=== PATIENT | female | born 1945 | race Caucasian/White ===

== ENCOUNTER → 2018-03-29 06:58 | Outpatient (CLI) | payer MEDICARE, SELFPAY | PROVIDERS: Family Provider Internal Medicine; PCP Internal Medicine; Visit Provider Surgery | DX: R69 Illness, unspecified (principal); Z53.9 Procedure and treatment not carried out, unspecified reason ==

== ENCOUNTER 2018-06-13 09:42 | Inpatient (IN) | payer MEDICARE, SELFPAY ==
--- NOTE | 2018-06-07 15:49 | EKG12_ITS ---
Test Reason : PREOP Blood Pressure : / mmHG Vent. Rate : 084 BPM Atrial Rate : 084 BPM P-R Int : 160 ms QRS Dur : 068 ms QT Int : 366 ms P-R-T Axes : 046 -04 093 degrees QTc Int : 432 ms Normal sinus rhythm Nonspecific ST and T wave abnormality Abnormal ECG Confirmed by THOMAS TOLEDO, NIRANJAN ([id number]), television news video editor SHERINE BAHENA ([id number]) on 06/08/2018 1:36:12 PM Referred By: Howie Bach Confirmed By:NIRANJAN GUZMAN MD
[2018-06-07 16:11] LABS: Hematocrit 42.2 % (37-47); Hemoglobin 13.4 g/dl (12.0-15.0); Mean Corp Hgb Conc 31.8 g/gl (32-36); Mean Corpuscular Hgb 28.4 pg (27.0-32.0); Mean Corpuscular Volume 89.4 fL (81-99); Platelet Count 196 K/mm3 (150-450); RBC Distribution Width CV 15.5 % (11.6-14.6); RBC Distribution Width SD 50.7 fl (35.1-43.9); Red Blood Count 4.72 M/mm3 (4.2-5.4); White Blood Count 6.4 K/mm3 (4.4-11.0)
[2018-06-07 16:15] LABS: Scan Indicated on CBC? Y/N NO
[2018-06-07 16:29] LABS: Anion Gap 10 (5-15); BUN 14 mg/dL (7-18); BUN/Creat Ratio 14.2 RATIO (10-20); Chloride 105 mmol/L (98-107); Creatinine, Serum 0.98 mg/dL (0.55-1.02); EST Glomerular Filtration Rate 59 mL/min (>60); Est Glom Filt Rate - Afr Amer 72 mL/min (>60); Glucose 152 mg/dL (74-106); Sodium Level 137 mmol/L (136-145)
[2018-06-13] VITALS (15 sets, daily range): BP systolic 81–145; BP diastolic 50–81; PULSE 69–96; RESP 16–116; TEMP 36.1–37.2; O2SAT 92–100; BMI 36.6
--- NOTE | 2018-06-13 | IMM_PTH ---
PATIENT: FARIDA JHAVERI LOC: MS3 U#:[id number] AGE/SX: 72/F ROOM: MS305 RE06/13/[address]: Dr. Howie Bach MD : 1945 BED: 1 DIS: 06/15/2018 SPEC #: [id number] RECD: 06/15/18 14:31 STATUS: KIRSTY REQ #: [id number] ANA MARIA: 06/13/18 00:[address]: Howie Bach DEPT: IMMUNOHISTOCHEMISTRY RECD BY: Martha Weiss ENTERED: 06/15/18 14:33 SP TYPE: IMMUNO OTHR DR: Dr. Edda Ruano MD Tissues: Spleen, NOS Procedures: CD138 (add) CD45 (add) CD5 (add) CD79A (add) MACRO (add) Vimentin (add) Pankeratin (add) S-100 (add) CD3 (initial) PHYSICIAN & INSTITUTION [address] [address] SPECIMEN INFORMATION: Tissue Source: Spleen Clinical Info: Spleen anomaly Specimen Number: [id number] #4 CPT code: 38316, 62331 x8 METHODOLOGY: Deparaffinized sections of prefer/formalin-fixed tissue or PAP/DQ stained slides are incubated with monoclonal/polyclonal antibodies/oligonucleotide probes. Localization is made via biotin free immunoperoxidase method. Appropriate controls are performed and reacted as expected. Results on target cell population are indicated in the following table: RESULTS: ANTIBODY / CLONE RESULT Block 4 CD3 (PS1) negative CD5 (SP10) negative CD45 (RP2/18) negative CD79a (11E3) negative CD138 (B-A38) negative Macro (HAM-56) positive, focal Vimentin (V9) negative AE1-3 (AE1/AE3/PCK26) negative S-100 (4C4.9) negative These tests were developed and their performance characteristics determined by [facility]. They may not have been cleared or approved by the U.S. Food and Drug Administration. The FDA has determined that such clearance or approval is not necessary. INTERPRETATION: Spleen, splenectomy: No evidence of lymphoproliferative disorder. AM:javier 06/17/18
--- NOTE | 2018-06-13 | SPL_PTH ---
PATIENT: FARIDA JHAVERI LOC: MS3 U#:[id number] AGE/SX: 72/F ROOM: [facility] RE06/13/[address]: Dr. Howie Bach MD : 1945 BED: 1 DIS: 06/15/2018 SPEC #: [id number] RECD: 06/13/18 14:24 STATUS: KIRSTY REBlayne #: [id number] ANA MARIA: 06/13/18 00:[address]: Howie Bach DEPT: SURGICAL PATHOLOGY RECD BY: Gordy Palma ENTERED: 06/13/18 14:25 SP TYPE: SPLEEN OTHR DR: MD Dr. Pablo Martinez DO Tissues: Spleen, NOS Procedures: Surgery Specimen Level IV HEADER OPERATION: Laparoscopic splenectomy PRE-OP DIAGNOSIS: Spleen anomaly TISSUE SUBMITTED: Spleen MICROSCOPIC DIAGNOSIS Spleen, splenectomy: Non-necrotizing granulomatous inflammation. No evidence of malignancy. Negative for acid-fast bacilli and fungal organisms. AM:rg 9/19/18 COMMENT Immunohistochemistry ([id number]) supports the above diagnosis. AFB and GMS stains with matched controls were used in the evaluation of this case and are negative for microorganisms. The differential diagnosis includes sarcoidosis. Clinical correlation is necessary. Case has been reviewed in consultation with Dr. Morales who concurs with the above diagnosis. IDC:SHIV MICROSCOPIC DESCRIPTION Slides are reviewed. GROSS DESCRIPTION Received in fixative is one container labeled with the patient's name and designated spleen. The specimen consists of a splenectomy specimen in multiple pieces weighing 431 gm and measuring in aggregate 15 x 14 x 4 cm. The capsule shows multiple areas of disruption. Sections reveal multiple bowser-white nodules. The largest nodule measures 1.5 cm in greatest dimension. These nodules are present throughout the entire specimen. A definite hilar area is not identified due to the disrupted nature of the specimen. Logistics Specialist sections are submitted in eight cassettes. Cassettes 7 & 8 contain the possible hilar region of the specimen. Sections will be submitted after additional fixation. / SHIV:javier 06/13/18 TC:3 CPT: 41179, 74461 x2
--- NOTE | 2018-06-13 06:18 | PCM.CONS.B ---
Problem List (1) Spleen anomaly Status: Acute - Consult Date of Consult: 06/13/18 Intake Vital Signs 06/13/18 Height 5 ft 1.5 in 06/13/18 Weight: 197 lb 06/13/18 Body Mass Index (BMI) 37.0 06/13/18 Blood Pressure 145/81 06/13/18 Respiratory Rate 16 06/13/18 Pulse Rate 78 06/13/18 Pulse Source Monitor 06/13/18 Temperature 97.8 F 06/13/18 Temperature Source Temporal 06/13/18 Pulse Ox 97 06/13/18 Oxygen Delivery Method room air Intake Visit Reasons: Splenectomy Consult [employer] Machine Operator Required: No Is patient in pain?: No Allergies lidocaine Allergy (Intermediate, Verified 05/11/18 13:43) tachycardia Penicillins Allergy (Verified 02/22/18 15:58) Hives hydrocodone bitartrate [From Vicodin] Adverse Reaction (Verified 02/22/18 15:58) Vomiting oxycodone HCl [From Percocet] Adverse Reaction (Verified 02/22/18 15:58) Vomiting Medications Atorvastatin Calcium [Lipitor] 40 mg PO QHS 04/03/16 [History Confirmed 05/11/18] Clorazepate [Tranxene] 7.5 mg PO TID PRN PRN 04/03/16 [History Confirmed 05/11/18] Paroxetine HCl 20 mg PO DAILY 04/03/16 [History Confirmed 05/11/18] Verapamil [Calan] 80 mg PO DAILY 04/03/16 [History Confirmed 05/11/18] Cephalexin [Keflex] 250 mg PO DAILY 02/22/18 [History Confirmed 05/11/18] naproxen sodium 220 mg capsule 220 mg PO Q6H cap 05/11/18 [History Confirmed 05/11/18] PFSH Medical History Spleen anomaly (Acute) BMI 36.0-36.9,adult (Chronic) Dyslipidemia (Chronic) Depression (Chronic) History of PSVT (paroxysmal supraventricular tachycardia) (Chronic) PNA (pneumonia) (Acute) Abdominal pain (Acute) Hemorrhoids (Acute) History of blood clots (Acute) Sleep apnea (Acute) Splenomegaly (Acute) Surgical History History of hysterectomy (Acute) history excisional biopsy left breasr (Acute) Family History Daughter Hypertension Social History Smoking Status: Never smoker HPI: Patient presents for an update history and physical for her elective splenectomy. Patient denies recent hospitalizations or illnesses. Patient notes history of SVT. She denies previous myocardial infarction, stroke. She notes previous hysterectomy otherwise no other abdominal surgeries. Patient notes she has had the appropriate pre-op vaccines ordered by Dr. Werner's office. Patient's previous history per Dr. Bach: FARIDA JHAVERI, is a 72 F who presents to the office today for surgical consultation regarding epigastric and left upper quadrant pain and abnormal spleen. The patient is referred by Dr. Pablo Werner and a written copy of my surgical consult recommendations will be returned to him. The patient was most recently seen April 25, 2018. Her history is notable for an aortic aneurysm with paroxysmal supraventricular tachycardia. Because of abdominal pain issues she had a CT scan of the chest abdomen and pelvis. This was obtained at the [facility] on March 10, 2018. There are pulmonary nodular densities which are new from a previous study of May 20, 2015 and August 21, 2008. Differential diagnosis included inflammatory or neoplastic process. In addition numerous splenic nodules have developed which are new since 2007. Consider sarcoidosis or metastatic disease or lymphoma. There is a stable ascending aortic aneurysm. Which measures 3.9 x 4.1 cm. Previously it measured 3.8 x 3.8 cm. The distal descending thoracic aorta measures 2.4 cm On April 04, 2018 she had an MRI of the spleen. The spleen measures 14.1 cm in length. Multiple hypo-dense lesions are identified throughout the spleen. On March 09 total white blood cell count was 6500. Hemoglobin 13. Platelet count 190,000. The patient was to have a screening colonoscopy but that has been placed on hold secondary to her new pulmonary and spleen findings. Her previous colonoscopy was 2005. More recent laboratory April 26, 2018 demonstrates white blood cell count of 7.15 and hemoglobin 14 and hematocrit of 44.5 and a platelet count of 229,000 with a normal differential. Her urinalysis was not remarkable. Her hemoglobin A1c is elevated at 6.7. BUN is 13 and creatinine 0.77 She denies bright red blood per rectum or melena She is admittedly very anxious about pursuing any type of surgical intervention ROS General: Yes fatigue; no weight change, appetite, colon cancer, breast cancer or weakness HEENT: No difficulty swallowing, eye injury, eye surgery, swollen glands or hoarseness Endocrine: No thyroid disease, diabetes mellitus, thyroid cancer, Hair loss, heat intolerance or cold intolerance Skin: No rash or changing moles Breast: No left breast lump, right breast lump, nipple discharge, breast pain, abnormal mammogram, abnormal US or breast enlargement Musculoskeletal: Yes arthritis; no back problems, rheumatoid arthritis, gout or joint pain Cardiovascular: No murmur, pacemaker, heart disease, atrial fibrillation, high blood pressure, heart attack, heart stent, palpitations, shortness of breat with exertion or chest pain Psychiatric: Yes depression and anxiety; no hearing voices Respiratory: No shortness of breath, Yes sleep apnea, No cough, No COPD, No asthma, No emphysema, No wheezing Gastrointestinal: Yes abdominal pain, No nausea or vomiting, No diarrhea, No constipation, No blood in stool, No acid reflux, Yes hemorrhoids, No ulcers, No gallbladder problem, No black,tarry stools Hematologic: No blood thinners, No blood disorders, No bleeding, No anemia, Yes blood clots Neurologic: No system reviewed and no additional complaints, except as docu, No as per HPI, No abnormal walking, No abnormal hearing, No abnormal movements, No abnormal speech, No behavioral changes, No burning sensations, No confusion, No seizure-like activity, No unsteadiness, No dizziness, No localized weakness, No frequent falls, No headache(s), No lack of coordination, No loss of vision, No memory loss, Yes numbness, No other visual disturbances, No radiating pain, No restless legs, No sensory deficit, No fainting, Yes tingling, No tremor(s), No weakness, No other Exam: Const General: cooperative, anxious Nutritional Appearance: obese Orientation: alert, awake, oriented x3 HENMT Head: normal to inspection Eyes General: appearance normal, both eyes and all related structures Neck Neck: normal visual inspection Chest Breast Palpation: No nipple discharge Resp Effort & Inspection: normal respiratory effort Auscultation: clear to auscultation bilaterally Cardio Rate: regular rate Rhythm: regular rhythm Heart Sounds: no murmurs GI Palpation: soft Auscultation: normal bowel sounds Other: Minimal tenderness to palpation in the epigastric area. No mass. No rebound. No guarding. Central obesity Musc Cervical Spine: normal cervical lordosis Skin General: no rashes or lesions noted Neuro Cranial Nerves: CN's II-XI intact bilaterally Extrem General: no clubbing, cyanosis or edema Psych Affect: normal affect Assessment & Plan Problems 1. 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 Bach will plan to perform a laparoscopic splenectomy with possible conversion to open. Procedure details, risks and benefits have been reviewed with the patient. Patient has had the opportunity to ask and have questions answered. Patient agrees with the following plan and desires to proceed. Code Visit Inpatient E&M: 14001 Subs Hosp L1 - NO CHARGE; Update H&P
--- NOTE | 2018-06-13 07:13 | DCINST_ITS ---
Discharge Diet: Light diet - advance as tolerated - if you have questions about your diet instructions, please talk to you doctor. Discharge Activity: May Not Drive - for 1 week or while taking narcotic pain medicine. May shower in (days): 1 Lifting Restrictions: 10 pounds Call your doctor if your incision/area has: Continuous Slow Oozing, Sudden Increased Bleeding, Increased Pain/ Swelling, Increased Redness, Foul Smelling Discharge Call your doctor if you observe: Fever of 101 or Higher Suture Line Care: Avoid Pulling/Pushing, Avoid Pinching/Bending Additional Dressing/Incision Instructions:: Change or remove dressing in 4 days. Leave steri-strips in place for 1 week. Allergies/Adverse Reactions: Allergies lidocaine Allergy (Intermediate, Verified 06/13/18 05:46) tachycardia Penicillins Allergy (Verified 06/13/18 05:46) Hives atorvastatin Adverse Reaction (Verified 06/13/18 05:46) Pain in joints hydrocodone bitartrate [From Vicodin] Adverse Reaction (Verified 06/13/18 05:46) Vomiting oxycodone HCl [From Percocet] Adverse Reaction (Verified 06/13/18 05:46) Vomiting Medications to take at Discharge Clorazepate [Tranxene] 7.5 mg PO TID PRN PRN 04/03/16 Paroxetine HCl 20 mg PO QHS 04/03/16 Verapamil [Calan] 80 mg PO QHS 04/03/16 Cephalexin [Keflex] 250 mg PO QHS 02/22/18 Melatonin 3 mg PO QHS 06/01/18 Naproxen Sodium [Aleve] 220 mg PO Q12H PRN PRN 06/01/18 Primary Care Physician: Edda Ruano MD [Primary Care Provider] - Test Results: Test results from this visit will be discussed in further detail at your follow- up appointment, if applicable. Please Follow Up With: Howie Bach MD - [phone] When: Call to make an appointment to be seen in about 10 days.
[2018-06-13] MEDS: Bupivacaine Mpf 0.5% 30 ML VIAL (07:47)
--- NOTE | 2018-06-13 09:47 | PCM.OPRPT ---
Problem List (1) Spleen anomaly Status: Acute Report of Operation Date of Procedure: 06/13/18 Pre-Operative Diagnosis: Multiple splenic nodules Post-Operative Diagnosis: Pathology pending Surgery/Procedure Performed:: Laparoscopic splenectomy Description of Surgical Findings:: Timeout and informed consent was obtained. 72-year-old female was taken out from placement supine the table initially she underwent general ventricular-based anesthesia. Beanbag was in place. She was placed in the right lateral decubitus position. Care was taken to place a shoulder roll and padding underneath the right arm padding underneath the left arm and arm torres padding on the down leg padding between the legs. The kidney rest was advanced. The bed was flexed. Patient was secured with straps below and above. The abdomen sterilely prepped and draped. She received 900 mg of clindamycin intravenously. Sterile drapes were applied. Ioban drape was used over the drapes in place. In the left subcostal area slightly more medially placed made a 5 mm incision and inserted a 500 Visiport trocar was able to gain direct access safely to the abdomen. The abdomen was initially inflated to 2 to pressure of 10 ventricular pressure but because of the patient's obesity that was not enough insufflation so we went to 15 dave of pressure. There were multiple adhesions of omentum to the left upper quadrant completely obliterating view to the spleen. I then had to place a 5 mm trocar more in the epigastric area again slightly laterally placed and another 5 mm trocar more inferiorly lower in the abdomen. I then used the Enseal device to lyse the copious number of omental adhesions to the left upper quadrant. Having achieved that I did gain access to visualization of the spleen. I placed a 15 mm trocar in the left mid subcostal region and a 5 mm trocar more laterally. The spleen surface appear to be normal. Appeared to have a diffuse vascular supply rather than abundant supply. I elevated the spleen a legal ligament secured that with the Enseal device I dissected posteriorly to incise the peritoneum all the way up to the apex of the spleen. I then scored the anterior surface of the peritoneum. Upon so doing this was able to identify the splenic artery. I carefully secured that with 2 Hem-o-juni clips proximally 1 distally. That was then transected. Most of the spleen became devascularized but not all of the spleen. I then used the Enseal device from the inferior slowly coming across the hilum of the spleen. This point I did have some venous backflow from the spleen which was cumbersome. I initially placed a 45 mm vascular height stapler and secured a portion of the pedicle of the spleen. The remaining pedicle was thicker than the 45 mm device was opened. I was able to further secure the short gastrics with the Enseal device and I was able to mobilize the posterior aspect of the spleen elevated on the remaining pedicle. I then placed a [place] with a blue load was able to transect the remainder of the pedicle of the spleen. Took great care to take immediately upon the spleen so as to not to interfere with the pancreas the pancreas tail on visualization. Hemostasis was nicely intact. There had been some blood loss during this total blood loss for the whole case 250 cc. The left upper quadrant was copiously irrigated carefully inspected. The hemoclips to secure the splenic artery. The hemostasis was completely intact. The tail of the pancreas could be identified and appear to be completely intact. The greater curvature the stomach at the site of the short gastrics was clean and intact. Was happy with the resection. Her graph A [email or web address] contained extraction system bag was utilized. The bag was a Scott reference number GTB [id number] cm diameter retrieval bag. Spleen was placed with this and was then exited. The retaining device did not allow for enough opening so I then put in a small wound protector as well to increase the visualization. The spleen could then be partially morcellated was grabbed with ring forceps and then portions were removed simply as would be allowed with the ring forceps. Several large sections were removed to allow for adequate pathology. The whole specimen was evacuated. The specimen was then immediately placed in formalin. The retaining cervical and small wound protector and larger bag were all removed. The flank wound with was then approximated with a deep layer of running 0 Vicryl. The internal oblique was then further proximally the running 0 Vicryl and the external oblique with a running 0 PDS. [place] that I had good overlapping closure. The wound was anesthetized with Nesacaine. This because the patient's lidocaine allergy. Hemostasis was nicely intact. The abdomen was reinsufflated the resection area was intact I did place a 15 round RITA drain to the left upper quadrant area exited through the left flank incision and secured there with interrupted 3-0 nylon. Wounds were now closed with interrupted running septic or 4 Monocryl. Steri-Strips Telfa OpSite dressings applied. Sponge and instrument and needle counts were reported the surgeon be correct. Blood loss 250 cc. Specimens spleen. Drains #15 RITA round. Blood loss 250 cc. Howie Bach M.D., F.A.C.S. Type of Anesthesia:: General Anesthesiologist: Reji Conner
--- NOTE | 2018-06-13 09:56 | OP.PCM_ITS ---
Problem List (1) Spleen anomaly Status: Acute Report of Operation Date of Procedure: 06/13/18 Pre-Operative Diagnosis: Multiple splenic nodules Post-Operative Diagnosis: Pathology pending Surgery/Procedure Performed:: Laparoscopic splenectomy Description of Surgical Findings:: Timeout and informed consent was obtained. 72-year-old female was taken out from placement supine the table initially she underwent general ventricular- based anesthesia. Beanbag was in place. She was placed in the right lateral decubitus position. Care was taken to place a shoulder roll and padding underneath the right arm padding underneath the left arm and arm torres padding on the down leg padding between the legs. The kidney rest was advanced. The bed was flexed. Patient was secured with straps below and above. The abdomen sterilely prepped and draped. She received 900 mg of clindamycin intravenously. Sterile drapes were applied. Ioban drape was used over the drapes in place. In the left subcostal area slightly more medially placed made a 5 mm incision and inserted a 500 Visiport trocar was able to gain direct access safely to the abdomen. The abdomen was initially inflated to 2 to pressure of 10 ventricular pressure but because of the patient's obesity that was not enough insufflation so we went to 15 dave of pressure. There were multiple adhesions of omentum to the left upper quadrant completely obliterating view to the spleen. I then had to place a 5 mm trocar more in the epigastric area again slightly laterally placed and another 5 mm trocar more inferiorly lower in the abdomen. I then used the Enseal device to lyse the copious number of omental adhesions to the left upper quadrant. Having achieved that I did gain access to visualization of the spleen. I placed a 15 mm trocar in the left mid subcostal region and a 5 mm trocar more laterally. The spleen surface appear to be normal. Appeared to have a diffuse vascular supply rather than abundant supply. I elevated the spleen a legal ligament secured that with the Enseal device I dissected posteriorly to incise the peritoneum all the way up to the apex of the spleen. I then scored the anterior surface of the peritoneum. Upon so doing this was able to identify the splenic artery. I carefully secured that with 2 Hem-o-juni clips proximally 1 distally. That was then transected. Most of the spleen became devascularized but not all of the spleen. I then used the Enseal device from the inferior slowly coming across the hilum of the spleen. This point I did have some venous backflow from the spleen which was cumbersome. I initially placed a 45 mm vascular height stapler and secured a portion of the pedicle of the spleen. The remaining pedicle was thicker than the 45 mm device was opened. I was able to further secure the short gastrics with the Enseal device and I was able to mobilize the posterior aspect of the spleen elevated on the remaining pedicle. I then placed a [place] with a blue load was able to transect the remainder of the pedicle of the spleen. Took great care to take immediately upon the spleen so as to not to interfere with the pancreas the pancreas tail on visualization. Hemostasis was nicely intact. There had been some blood loss during this total blood loss for the whole case 250 cc. The left upper quadrant was copiously irrigated carefully inspected. The hemoclips to secure the splenic artery. The hemostasis was completely intact. The tail of the pancreas could be identified and appear to be completely intact. The greater curvature the stomach at the site of the short gastrics was clean and intact. Was happy with the resection. Her graph A [employer] contained extraction system bag was utilized. The bag was a Scott reference number GTB 1414 cm diameter retrieval bag. Spleen was placed with this and was then exited. The retaining device did not allow for enough opening so I then put in a small wound protector as well to increase the visualization. The spleen could then be partially morcellated was grabbed with ring forceps and then portions were removed simply as would be allowed with the ring forceps. Several large sections were removed to allow for adequate pathology. The whole specimen was evacuated. The specimen was then immediately placed in formalin. The retaining cervical and small wound protector and larger bag were all removed. The flank wound with was then approximated with a deep layer of running 0 Vicryl. The internal oblique was then further proximally the running 0 Vicryl and the external oblique with a running 0 PDS. [place] that I had good overlapping closure. The wound was anesthetized with Nesacaine. This because the patient's lidocaine allergy. Hemostasis was nicely intact. The abdomen was reinsufflated the resection area was intact I did place a 15 round RITA drain to the left upper quadrant area exited through the left flank incision and secured there with interrupted 3-0 nylon. Wounds were now closed with interrupted running septic or 4 Monocryl. Steri- Strips Telfa OpSite dressings applied. Sponge and instrument and needle counts were reported the surgeon be correct. Blood loss 250 cc. Specimens spleen. Drains #15 RITA round. Blood loss 250 cc. Howie Bach M.D., F.A.C.S. Type of Anesthesia:: General Anesthesiologist: Reji Conner
[2018-06-13] MEDS: Lactated Ringers 1,000 ML 50 ML IV (11:48)
[2018-06-13 12:12] LABS: Hematocrit 37.5 % (37-47); Hemoglobin 11.5 g/dl (12.0-15.0)
--- NOTE | 2018-06-13 12:24 | PCM.PN.BLA ---
Progress Note We will utilize early mobilization and sequential venous compression devices as means of DVT prophylaxis. 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 Howie Bach M.D., F.A.C.S.
[2018-06-13] MEDS: Lactated Ringers 500 ML 999 ML IV (12:35)
--- NOTE | 2018-06-13 12:54 | SUR.PHASEI ---
500 ML LR COMPLETE HR 82, RESP 16 PULSE OX 99% ON 2L ND NC BP 117/68 REPEAT H/H @1600 ON MED SURG 3. MARIA LUISA MANRIQUEZ INFORMED.
[2018-06-13] MEDS: Ketorolac 15 MG/ML Vial IV ×2 (13:21→21:30)
[2018-06-13] MEDS: Morphine 2 MG/ML Syringe IV ×2 (16:38→19:49)
[2018-06-13] MEDS: Acetaminophen 325 MG Tablet 650 MG PO (16:39)
[2018-06-13 16:47] LABS: Hematocrit 36.3 % (37-47); Hemoglobin 11.8 g/dl (12.0-15.0)
--- NOTE | 2018-06-13 19:04 | PCM.PN.BLA ---
Progress Note Pt feels like she is doing well Urinary retention Will treat with flomax RITA no remarkable Mobilize pt
[2018-06-13] MEDS: Lactated Ringers 1,000 ML 30 ML IV (19:49)
[2018-06-13] MEDS: Tamsulosin HCl 0.4 MG Capsule PO (19:49)
[2018-06-13] MEDS: Cephalexin 250 MG Capsule PO (21:30)
[2018-06-14 02:00] VITALS: BP 129/64; PULSE 99; RESP 18; TEMP 37.1; O2SAT 96
--- NOTE | 2018-06-14 02:00 | NURSING ---
Patient ambulated in hallway during this time with this RN, c/o left flank pain.
[2018-06-14] MEDS: Morphine 2 MG/ML Syringe IV ×4 (02:11→21:17)
--- NOTE | 2018-06-14 05:28 | PCM.PN.SRG ---
Subjective: No flatus but no nausea Sore - Physical Exam General: Alert, Oriented x3, Cooperative, No apparent distress Lungs: Clear to auscultation Abdomen: Soft, Hypoactive Bowel Sounds Vital Signs Temp Pulse Resp BP Pulse Ox 98.7 F 99 18 129/64 H 96 06/14/18 02:00 06/14/18 02:00 06/14/18 02:00 06/14/18 02:00 06/14/18 02:00 Oxygen Flow Rate (L/min) 2 Oxygen Delivery Method Room Air Weight: 197 lb 1.492 oz Body Mass Index (BMI) 36.6 Intake and Output for Last 24 Hours 06/12/18 06/13/18 06/14/18 23:59 23:59 23:59 Intake Total 3277 / 3277 Output Total 1587 / 1587 300 / 300 Balance 1690 / 1690 -300 / -300 Laboratory Tests Past 24 Hrs 06/13/18 06/13/18 11:50 16:17 Hgb 11.5 L 11.8 L Hct 37.5 36.3 L Medical Necessity - Tobacco Use Smoking Status: Never smoker Assessment/Plan All Active Problems (Last Updated 05/11/18 @ 13:39 by Dede Allen) Spleen anomaly (Acute) PNA (pneumonia) (Acute) Remove RITA today Mobilize pt Hopeful discharge later today
[2018-06-14] MEDS: Ketorolac 15 MG/ML Vial IV (05:43)
[2018-06-14 07:01] LABS: Hematocrit 34.1 % (37-47); Hemoglobin 10.7 g/dl (12.0-15.0); Mean Corp Hgb Conc 31.4 g/gl (32-36); Mean Corpuscular Hgb 28.2 pg (27.0-32.0); Mean Platelet Vol. 11.1 fl (6.2-12.0); Platelet Count 223 K/mm3 (150-450); RBC Distribution Width CV 15.6 % (11.6-14.6); RBC Distribution Width SD 51.5 fl (35.1-43.9); Red Blood Count 3.79 M/mm3 (4.2-5.4); White Blood Count 13.8 K/mm3 (4.4-11.0)
[2018-06-14 07:07] LABS: Scan Indicated on CBC? Y/N NO
[2018-06-14 07:17] LABS: Anion Gap 10 (5-15); BUN 11 mg/dL (7-18); BUN/Creat Ratio 12.5 RATIO (10-20); Chloride 101 mmol/L (98-107); Creatinine, Serum 0.88 mg/dL (0.55-1.02); EST Glomerular Filtration Rate 68 mL/min (>60); Est Glom Filt Rate - Afr Amer 82 mL/min (>60); Estimated Creatinine Clearance 44.89 ml/min; Glucose 144 mg/dL (74-106); Potassium 4.2 mmol/L (3.5-5.1); Sodium Level 139 mmol/L (136-145)
[2018-06-14] MEDS: Acetaminophen 325 MG Tablet 650 MG PO ×3 (07:48→22:15)
[2018-06-14 07:51] VITALS: BP 107/65; PULSE 82; RESP 18; TEMP 37.2; O2SAT 95
--- NOTE | 2018-06-14 07:56 | PCM.PN.BLA ---
Progress Note Evaluated patient resting comfortably in bed. She notes mild abdominal discomfort. RITA drain was removed entirely. Bandage was placed. Probable discharge today or tomorrow. Code Visit Inpatient E&M: 66240 Subs Hosp L1 - Post-op; no charge
[2018-06-14 08:00] VITALS: BP 110/65; PULSE 82; RESP 18; TEMP 37.2; O2SAT 95
--- NOTE | 2018-06-14 12:05 | CASEMGMT ---
RN ANIBAL Face to Face with patient for initial transition planning/care coordination assessment. RN CM introduced self and role at [facility]. Patient sitting in chair, alert and oriented. Patient willing to participate in assessment and is able to answer all questions appropriately. Care providers, pharmacy, and demographics verified. See link attached. Patient wishes to discharge home and is requesting [facility] for [facility], PT and OT. [facility] Referral sent to [facility] and they are able to accept the patient. Patient states she has no further needs or concerns at this time. CM to follow for discharge planning needs that may arise. Disposition Plan: Patient to discharge home with HHC, family support, and follow-up plans in place. Nadia LOVE, RN, CM
[2018-06-14] MEDS: Tamsulosin HCl 0.4 MG Capsule PO (12:58)
[2018-06-14 14:00] VITALS: BP 112/61; PULSE 81; RESP 18; TEMP 37.1; O2SAT 96
--- NOTE | 2018-06-14 19:08 | NURSING ---
Patient up and ambulating in hallway at this time.
--- NOTE | 2018-06-14 19:28 | NURSING ---
Patient stated to this RN the last time she went to the bathroom she did some flatus.
[2018-06-14 20:15] VITALS: BP 131/66; PULSE 78; RESP 16; TEMP 36.8; O2SAT 94
[2018-06-14 20:19] VITALS: RESP 18
--- NOTE | 2018-06-14 21:00 | NURSING ---
Patient up and ambulated in hallway at this time.
[2018-06-14] MEDS: Cephalexin 250 MG Capsule PO (21:16)
--- NOTE | 2018-06-14 21:18 | NURSING ---
Patient continues to pass flatus, c/o abd cramping.
--- NOTE | 2018-06-15 03:02 | NURSING ---
Patient up ambulating in hallway at this time.
[2018-06-15 04:15] VITALS: BP 113/56; PULSE 90; RESP 18; TEMP 36.9; O2SAT 94
[2018-06-15] MEDS: Acetaminophen 325 MG Tablet 650 MG PO ×2 (04:17→10:59)
--- NOTE | 2018-06-15 05:57 | PCM.PN.BLA ---
Progress Note Pt ready for DC this a.m. once CBC checked
[2018-06-15 06:56] LABS: Hematocrit 30.6 % (37-47); Hemoglobin 9.7 g/dl (12.0-15.0); Mean Corp Hgb Conc 31.7 g/gl (32-36); Mean Corpuscular Volume 91.6 fL (81-99); Mean Platelet Vol. 11.4 fl (6.2-12.0); Platelet Count 234 K/mm3 (150-450); RBC Distribution Width CV 15.4 % (11.6-14.6); RBC Distribution Width SD 50.4 fl (35.1-43.9); Red Blood Count 3.34 M/mm3 (4.2-5.4); White Blood Count 9.4 K/mm3 (4.4-11.0)
[2018-06-15 07:10] LABS: Scan Indicated on CBC? Y/N NO
--- NOTE | 2018-06-15 07:45 | PCM.DC.SUM ---
Discharge Date and Diagnosis Date of Admission: 06/13/18 Date of Discharge: 06/15/18 - Primary Discharge Diagnosis Multiple splenic nodules - Secondary Discharge Diagnosis Chronic Problems (Last Updated 05/11/18 @ 13:39 by Dede Allen) BMI 36.0-36.9,adult (Chronic) Dyslipidemia (Chronic) Depression (Chronic) History of PSVT (paroxysmal supraventricular tachycardia) (Chronic) Hospital Course and Treatment Operations: - - Laparoscopic splenectomy Summary of Care Provided: The patient is a 72 year old F who presents for an elective splenectomy for multiple splenic nodules. Dr. Bach performed a laparoscopic splenectomy on 06/13/18. Patient tolerated the procedure well. She had an uneventful hospitalization. Patient's labs were closely monitored and remained stable. Upon discharge, patient notes she has mild amount of abdominal discomfort with positional changes. She denies nausea, vomiting. She notes positive flatus. She is urinating well. Patient will be discharged to home with home health. Patient will obtain H&H tomorrow as an outpatient. Discharge Diet: Light diet - advance as tolerated - if you have questions about your diet instructions, please talk to you doctor. Discharge Activity: May Not Drive - for 1 week or while taking narcotic pain medicine. May shower in (days): 1 Call your doctor if your incision/area has: Continuous Slow Oozing, Sudden Increased Bleeding, Increased Pain/ Swelling, Increased Redness, Foul Smelling Discharge Call your doctor if you observe: Fever of 101 or Higher Suture Line Care: Avoid Pulling/Pushing, Avoid Pinching/Bending Additional Dressing/Incision Instructions:: Change or remove dressing in 4 days. Leave steri-strips in place for 1 week. Home Medications: Medications to take at Discharge Clorazepate [Tranxene] 7.5 mg PO TID PRN PRN 04/03/16 Paroxetine HCl 20 mg PO QHS 04/03/16 Verapamil [Calan] 80 mg PO QHS 04/03/16 Cephalexin [Keflex] 250 mg PO QHS 02/22/18 Melatonin 3 mg PO QHS 06/01/18 Naproxen Sodium [Aleve] 220 mg PO Q12H PRN PRN 06/01/18 Primary Care Physician: Edda Ruano MD [Primary Care Provider] - Please Follow Up With: Howie Bach MD - [phone] When: Call to make an appointment to be seen in about 10 days. Disposition: Home Minutes spent on discharge:: 15 Patient Condition:: Good Medical Necessity - Tobacco Use Smoking Status: Never smoker Meaningful Use Info Meaningful Use Diagnoses (Choose all that apply): None applicable Code Visit Inpatient E&M: 28091 Disch Hosp
[2018-06-15 08:24] VITALS: BP 100/46; PULSE 89; RESP 18; TEMP 36.7; O2SAT 93
[2018-06-15 10:56] VITALS: BP 115/80; PULSE 91; RESP 18; TEMP 37; O2SAT 93
== END 2018-06-15 11:24 | disposition home or self-care (01) | DRG 800 ==
LOC: SDC 11:00 → MS3 06-14 06:47
PROVIDERS: Admitting Provider Surgery; Family Provider Internal Medicine; PCP Internal Medicine; Visit Provider Surgery
PROC: 07TP4ZZ Resection of Spleen, Percutaneous Endoscopic Approach (ICD-10-PCS; CPT 38120; principal; 2018-06-13 06:55)
DX: D73.89 Other diseases of spleen (principal); I47.1 Supraventricular tachycardia; E78.5 Hyperlipidemia, unspecified; F32.9 Major depressive disorder, single episode, unspecified; E66.9 Obesity, unspecified; Z68.36 Body mass index [BMI] 36.0-36.9, adult; R33.9 Retention of urine, unspecified; I71.2 Thoracic aortic aneurysm, without rupture; K66.0 Peritoneal adhesions (postprocedural) (postinfection)
CPT/HCPCS: 36415; 80048; 85014; 85018; 85027; 86850; 86900; 88305; 88341; 88342; 93005; J7120; A4216; C1760; J2405; J3490

== ENCOUNTER → 2018-06-16 09:08 | Outpatient (CLI) | payer MEDICARE, SELFPAY ==
[2018-06-16 09:49] LABS: Hematocrit 34.8 % (37-47)
== END ==
PROVIDERS: Physician Assistant; Family Provider Internal Medicine; PCP Internal Medicine; Visit Provider Surgery
DX: Q89.09 Congenital malformations of spleen (principal)
CPT/HCPCS: 36415; 85014; 85018

== ENCOUNTER → 2019-06-05 16:19 | Outpatient (CLI) | payer MEDICARE, SELFPAY ==
--- NOTE | 2019-06-05 | VUL_PTH ---
PATIENT: FARIDA JHAVERI LOC: [facility] U#:[id number] AGE/SX: 80/F ROOM: RE06/05/[address]: Dr. Yoanna Huerta MD : 1945 BED: DIS: SPEC #: [id number] RECD: 06/05/19 16:02 STATUS: KIRSTY SRINIVAS #: [id number] ANA MARIA: 06/05/19 00:[address]: Yoanna Huerta DEPT: SURGICAL PATHOLOGY RECD BY: Xuan Milton ENTERED: 06/06/19 08:58 SP TYPE: VULVA BX OTHR DR: Dr. Edda Ruano MD Tissues: Vulva, NOS Procedures: PAS Fungus (control) Special Stain Group I Surgery Specimen Level IV HEADER OPERATION: Vulvar biopsy PRE-OP DIAGNOSIS: Vulvar lesion TISSUE SUBMITTED: Vulva MICROSCOPIC DIAGNOSIS Vulva, biopsy: Granulation tissue with acute and chronic inflammation. Negative for fungal organisms. See comment. AM:javier 06/07/19 COMMENT PASF stain with matched control supports the above diagnosis. Clinical correlation is suggested. MICROSCOPIC DESCRIPTION Slides are reviewed. GROSS DESCRIPTION Received is one container labeled with the patient's name and not further designated. The specimen consists of one irregular fragment of light bowser soft tissue that measures 0.2 x 0.2 x 0.1 cm. The specimen is totally submitted in one cassette. / AM:javier 06/06/19 TC:2 CPT: 13608, 18107
[2019-06-05 14:19] VITALS: BMI 36.6
== END ==
PROVIDERS: Family Provider Internal Medicine; PCP Internal Medicine; Referring Provider Obstetrics & Gynecology; Visit Provider Obstetrics & Gynecology
DX: N90.89 Other specified noninflammatory disorders of vulva and perineum (principal)
CPT/HCPCS: 88305; 88312

== ENCOUNTER 2020-09-13 14:39 | Emergency (ER) | payer MEDICARE, SELFPAY ==
[2019-06-05 14:19] VITALS: BMI 36.6
[2020-09-13 14:40] VITALS: BP 148/88; PULSE 84; RESP 16; TEMP 36.2; O2SAT 97; BMI 38.7
--- NOTE | 2020-09-13 15:46 | ED.VIS.UPPEX ---
History of Present Illness Informant: Patient Occurred: Days - 3 days Mechanism/Context: - - Patient denies any injury or trauma Onset: Days - 3 days Context: Gradual Onset Timing: Continuous Quality of Pain: Throbbing Location: Right elbow Current Severity: Moderate Maximum Severity: Severe Worsened by: Movement Relieved by: Rest Associated Symptoms: Negative for: Parasthesia, Weakness, Loss of Funtion Narrative: 75-year-old [id number] female history of type 2 diabetes mellitus presents to the emergency department with right elbow pain and swelling. Patient states for 3 days she has had worsening swelling redness and bruising to her right elbow. She denies any specific injury or trauma. She states that she is moving a lot of boxes around and it is possible she could have bumped her elbow against something but she does not remember anything specifically. No falls. No fevers. No nausea vomiting or diarrhea. No numbness tingling or weakness. Rest of her review of systems are negative Tetanus Immunization: Unknown Prior similar symptoms: No Recent Illness/Hospitalization: No <Marshall Ware - Last Filed: 09/13/20 15:46> <Joseph Sorenson - Last Filed: 09/13/20 18:34> Chief Complaint: Upper Extremity Injury Past Medical History Prior records reviewed: Yes Past Medical History: - - Pretension and type 2 diabetes mellitus Surgical History: - - Splenectomy Lives: With Family Smoking Status: Never smoker Alcohol: None Drugs: None - Family History Paternal Family History: Family History (Last Reviewed 06/05/19 @ 14:22 by Atiya Bautista) Daughter Hypertension Family History: Reports: Heart Disease <Marshall Ware - Last Filed: 09/13/20 15:46> - Family History Paternal Family History: Family History (Last Reviewed 06/05/19 @ 14:22 by Atiya Bautista) Daughter Hypertension <Joseph Sorenson - Last Filed: 09/13/20 18:34> - Allergies and Home Meds Allergies/Adverse Reactions: Allergies lidocaine Allergy (Intermediate, Verified 09/13/20 14:44) tachycardia Penicillins Allergy (Verified 09/13/20 14:44) Hives atorvastatin Adverse Reaction (Verified 09/13/20 14:44) Pain in joints hydrocodone bitartrate [From Vicodin] Adverse Reaction (Verified 09/13/20 14:44) Vomiting oxycodone HCl [From Percocet] Adverse Reaction (Verified 09/13/20 14:44) Vomiting Primary Care Physician: Edda Ruano MD [Primary Care Provider] - Review of Systems All systems negative except as indicated General: Denies: Chills, Fever, Sweats Eyes: Denies: Visual changes - bilaterally, Diplopia ENT: Denies: Rhinorrhea, Sore throat Cardiovascular: Denies: Chest pain, Palpitations Respiratory: Denies: Dyspnea, Cough, Dyspnea on exertion Gastrointestinal: Denies: Abdominal pain, Nausea, Vomiting, Diarrhea, Melena, Hematochezia Genitourinary: Denies: Dysuria, Hematuria, Frequency Musculoskeletal: Reports: Swelling, Extremity Pain. Denies: Back pain Skin: Denies: Rash, Wounds Neurological: Denies: Headache, Weakness, Numbness <Marshall Ware - Last Filed: 09/13/20 15:46> Physical Exam Vital Signs/Narrative: Vital Signs Temp Pulse Resp BP Pulse Ox 09/13/20 14:40 97.2 F L 84 16 148/88 H 97 Inital Vital Signs reviewed: Yes Right Elbow: - - Patient has swelling redness and bruising of her right elbow that extends to the proximal forearm and the distal arm. There is no lymphatic streaking there is no abscess she is neurovascular intact distally she has mild bony tenderness diffusely over the elbow but normal active General: Well nourished, Well developed Head: Normocephalic, Atraumatic Eyes: Perrl, EOMI ENT: No Trauma, Moist Mucous Membranes Neck: Nontender, Full ROM Cardiovascular: Regular rate, Regular rhythm, No murmurs Respiratory: No distress, CTA bilaterally, Chest nontender Abdomen: Soft, Nontender, Nondistended, Normal bowel sounds Back: Nontender Skin: Normal color, No rash Neurological: Alert, Oriented x3, Cranial nerves II-XII grossly intact, Normal Strength, Normal Sensation Psychological: Normal affect <Marshall Ware - Last Filed: 09/13/20 15:46> Vital Signs/Narrative: Vital Signs Temp Pulse Resp BP Pulse Ox 09/13/20 14:40 97.2 F L 84 16 148/88 H 97 <Joseph Sorenson - Last Filed: 09/13/20 18:34> Diagnostic/Tx/Re-eval - Medical Decision Making Patient complaining of atraumatic right elbow pain and swelling. She denies any fever or chills. She denies being on any blood thinners. She saw her primary care physician today who sent her to the emergency department for further evaluation. She denies any history of a septic joint. She is diabetic. Elderly female no acute distress. Vital signs stable afebrile. HEENT exam unremarkable. Neck nontender no lymphadenopathy. Lungs clear to auscultation bilaterally. Heart regular rhythm no murmur. Abdomen soft nontender. Extremities moving all 4. Neurovascular intact. She has swelling in the posterior aspect of her right elbow. With fluctuance consistent with fluid. There is mild bruising. Its not warm. Is not specifically tender. She has full flexion-extension of the right elbow and wrist without any difficulty. There is no lymphangitic streaking. Hand is neurovascular intact. There is small swelling also at the wrist. Patient will have screening labs. An x-ray of the right elbow. And we will tap the right bursa to determine if this is gout versus traumatic bursitis versus septic bursitis. Labs are unremarkable. When I went to do the bursa aspiration a bruise developed in the soft tissue which was consistent with what it looked like before. Aspirated the bursa there was only blood. This is consistent with soft tissue hematoma and traumatic bursitis. The patient is on no blood thinners. She denies any known trauma other than putting pressure on her elbow. Right elbow x-ray shows soft tissue swelling. Consistent with the appearance of the elbow. I do not see any subcu air. There is no bony deformity, fracture nor dislocation. 3 views interpreted by myself. Impression: Acute right elbow bursitis Aspiration of the bursa by ER. Right elbow bruising and hematoma. <Joseph Sorenson - Last Filed: 09/13/20 18:34> ED Disposition <Marshall Ware - Last Filed: 09/13/20 15:46> <Joseph Sorenson - Last Filed: 09/13/20 18:34> - Plan for ED Patient: Referrals: Edda Ruano MD [Primary Care Provider] -
--- NOTE | 2020-09-13 15:55 | RAD_ITS ---
STUDY: X-RAY - RIGHT ELBOW REASON FOR EXAM: Female, 75 years old. Pain and swelling. TECHNIQUE: 3 view(s) of the elbow. COMPARISON: None. FINDINGS: There is no evidence of fracture or dislocation. Mild degenerative changes. There is mild soft tissue swelling overlying the olecranon. There are no radiodense foreign bodies. RAD/Elbow min 3 Views IMPRESSION: No fracture or dislocation of the right elbow. Mild degenerative changes. Mild soft tissue swelling overlying the olecranon. Electronically Signed: Robert Nava, at 16:11 EST Tel , Service support ,
[2020-09-13 16:22] LABS: Absolute Lymphocyte Count 3.76 X10^3/uL (0.83-4.51); Basophil# 0.04 X10^3/uL; Basophil% 0.4 % (0-1); Eosinophil# 0.17 X10^3/uL; Eosinophils% 1.6 % (0-5); Hematocrit 41.1 % (37-47); Hemoglobin 13.1 g/dL (12.0-15.0); Lymphocyte # 3.76 X10^3/ul (4.0); Lymphocyte % 35.8 % (19-41); Mean Corp Hgb Conc 31.9 g/dL (32-36); Mean Corpuscular Volume 94.1 fL (81-99); Mean Platelet Vol. 9.6 fl (6.2-12.0); Monocyte# 1.49 X10^3/uL; Monocyte% 14.2 % (0-10); NRBC Flagged by Analyzer 0 % (0-5); Neutrophil # 5.01 X10^3/uL (2.7-7.7); Neutrophil % 47.6 % (47-70); Platelet Count 471 K/mm3 (150-450); RBC Distribution Width CV 16.1 % (11.6-14.6); RBC Distribution Width SD 55.5 fl (35.1-43.9); Red Blood Count 4.37 M/mm3 (4.2-5.4); White Blood Count 10.5 K/mm3 (4.4-11.0)
[2020-09-13 16:34] LABS: Anion Gap 5 (5-15); BUN 16 mg/dL (7-18); BUN/Creat Ratio 20.3 RATIO (10-20); Calcium,Total 9.1 mg/dL (8.5-10.1); Chloride 106 mmol/L (98-107); Creatinine, Serum 0.79 mg/dL (0.55-1.02); EST Glomerular Filtration Rate 76 mL/min (>60); Est Glom Filt Rate - Afr Amer 92 mL/min (>60); Estimated Creatinine Clearance 35.99 ml/min; Glucose 70 mg/dL (74-106); Potassium 3.8 mmol/L (3.5-5.1); Sodium Level 139 mmol/L (136-145); Uric Acid 6.1 mg/dL (2.6-6.0)
[2020-09-13 18:10] VITALS: PULSE 79; RESP 16; O2SAT 98
--- NOTE | 2020-09-13 18:36 | ED.DEP ---
ED Disposition - Plan for ED Patient: Disposition: Home or Assisted Living Instructions: ED Bursitis, ED Hematoma Referrals: Edda Ruano MD [Primary Care Provider] - Additional Instructions: Ice and elevate your elbow to decrease pain, swelling and additional bruising. Tylenol for pain. If this continues to get worse or the bruising is spreading to others area your body you need to be reevaluated.
== END 2020-09-13 18:43 | disposition home or self-care (01) ==
PROVIDERS: Emergency Medicine; Emergency Provider Physician Assistant Medical; PCP Internal Medicine
DX: M70.21 Olecranon bursitis, right elbow (principal); E11.9 Type 2 diabetes mellitus without complications
CPT/HCPCS: 20605; 20610; 73080; 80048; 84550; 85025; 99283; A4216

== ENCOUNTER → 2020-10-10 17:47 | Outpatient (CLI) | payer MEDICARE, SELFPAY ==
[2020-09-13 14:40] VITALS: BMI 38.7
== END ==
PROVIDERS: PCP Internal Medicine; Referring Provider Otolaryngology; Visit Provider Otolaryngology
DX: Z11.59 Encounter for screening for other viral diseases (principal)
CPT/HCPCS: 87635; C9803; U0005; U0003

== ENCOUNTER 2020-10-29 13:25 | Outpatient (CLI) | payer MEDICARE, SELFPAY ==
[2020-10-29 13:46] VITALS: BP 135/75; PULSE 85; RESP 14; TEMP 36.7; O2SAT 95; BMI 34.0
[2020-10-29 14:50] VITALS: BP 115/64; PULSE 84; RESP 16; TEMP 36.9; O2SAT 93
[2020-10-29 15:23] VITALS: BP 121/63; PULSE 82; RESP 15; TEMP 36.7; O2SAT 94
[2020-10-29 15:41] VITALS: BP 130/75; PULSE 83; RESP 16; TEMP 36.7; O2SAT 91
[2020-10-29 16:10] VITALS: BP 125/88; PULSE 83; RESP 14; TEMP 36.8; O2SAT 93
[2020-10-29 16:36] VITALS: BP 104/70; PULSE 81; RESP 16; TEMP 36.9; O2SAT 92
== END 2020-10-29 16:45 | disposition home or self-care (01) ==
LOC: MS2OUT 13:27 → MS2 13:29
PROVIDERS: PCP Internal Medicine; Referring Provider Nurse Practitioner Acute Care; Visit Provider Nurse Practitioner Acute Care
DX: U07.1 COVID-19 (principal)
CPT/HCPCS: J7050; M0239; Q0239

== ENCOUNTER → 2020-12-05 16:58 | Outpatient (CLI) | payer MEDICARE, SELFPAY ==
--- NOTE | 2020-12-05 17:02 | RAD_ITS ---
STUDY: X-RAY CHEST REASON FOR EXAM: Female, 75 years old. SARCODOSIS,DYSPNEA TECHNIQUE: PA and lateral views of the chest. COMPARISON: 11/14/2016 FINDINGS: The lungs are clear and expanded. There is no demonstrated pleural abnormality. Normal size heart. Normal mediastinum and kendrick. Normal visualized pulmonary arteries. There is atherosclerotic tortuosity of the aortic arch and descending thoracic aorta. Normal visualized thoracic spine. Normal visualized ribs, clavicles, and shoulders. There is no demonstrated abnormality of the visualized soft tissue structures of the upper abdomen. RAD/Chest PA and Lateral IMPRESSION: Normal x-ray examination of the chest. Electronically Signed: Giovany Trent MD at 8:07 EST Tel , Service support ,
== END ==
PROVIDERS: PCP Internal Medicine; Referring Provider Internal Medicine Pulmonary Disease; Visit Provider Internal Medicine Pulmonary Disease
DX: D86.9 Sarcoidosis, unspecified (principal); R06.00 Dyspnea, unspecified
CPT/HCPCS: 71046

== ENCOUNTER 2021-01-27 12:00 | Outpatient (RCR) | payer MEDICARE, SELFPAY ==
--- NOTE | 2020-10-21 17:03 | HP.PTEVAL_ITS ---
Patient's Visit Information FARIDA JHAVERI is a 75 year old F referred to Physical Therapy by JAZMIN Goodrich with a diagnosis of B knee pain. Date of Evaluation: 10/21/20 Physical Therapist: Yossi Wolfe, PT, ATC - Visit Plan Frequency: 2-3x /Week Duration: 4-6 Weeks Plan: B LE stregnthening, balance and prorio, core stab ex's, nustep, and HEP - Subjective Pt reports she has had B knee pain for years. Pt notes she has had PT in the pas t, which did make a good difference. Pt reports that was 4 years ago, and notes she wants to see if she can get rid of this pain. Pt reports she has difficulty with stair negotiation, and reports she has also experienced balance issues in the past, falling 4 times over the past 2 weeks. Pt denies tingling or numbness in LE's this date. Sleep difficulty without taking pain meds. No recent xrays, but pt notes 4 years ago she was told she was bone on bone at that time. 4/10 pain at rest, 10/10 pain at worst (prolonged walking while grocery shopping) - Pain B Knees Pain Intensity (Out of 10): 4 Pain Intensity Range: 10 - Objective Neuro: B LE sensation is WNL to light touch. B achilles reflex= 2/3. Palpation: Pt is painful on the joint line of B knees. Crepitus with AROM. ROM: L knee 0-10-112 degrees, R knee 0-10-112. MMT: B knee flex and ext= 4-/5 and painful with testing. Girth at Joint line: B knees 38 cm - Goals Goal 1:: Decrease B knee pain x 50% to aid with sleep Goal Time Frame: 4-6 Weeks Goal 2:: Increase B knee strength x 1 grade toa id with stair negotiation Goal Time Frame: 4-6 Weeks Goal 3:: I with HEP Goal Time Frame: 4-6 Weeks - Rehabilitation Potential Physical Therapy Diagnosis: Pt has B knee pain, B LE weakness, and intol for prolonged ambulation secondary to degenerative changes in B knees Rehabilitation Potential: Good - Anticipated Interventions Patient/Client Instruction: Educate patient on: Condition, Plan of Care For the Purpose of:: To improve self management Therapeutic Exercise to Include: Strength training, Endurance training, Balance training, Flexibilty training, Gait and locomotor training, Dynamic Lumbar Stabilization For the Purpose of:: To decrease pain, To increase ROM, To improve muscle performance and motor function Cryotherapy (ice pack, ice massage): Yes For the Purpose of:: To decrease pain Thank you for the opportunity to evaluate your patient. For Medicare and Medicare HMO plans, please review the plan of care and approve it. It will need to be FAXED BACK to us at [phone] for Medicare purposes. For Medicare only, by signing this I certify the plan of care. Please let me know if there are questions or concerns regarding this plan of care. Physician Signature: Date:
--- NOTE | 2021-01-09 16:39 | HP.PTREVAL ---
Kerri Cabrera, PHARMACY BENEFITS COORDINATOR-C, It has been my pleasure to treat FARIDA JHAVERI over the last 20 visits for B knee pain. Please see the progress note below for an update on the physical therapy plan of care! Subjective: Pt reports she is improving overall. Pt notes her L knee is still sore, but she notes her functionality is improving. Objective/Function: L knee pain ranges from 3/10 to 8/10. Pt reports she still has sleep difficulty secondary to pain. MMT: B hip flex 4-/5, add 4/5, B knee flex= 4/5, K knee ext= 4-/5, B hip abd= 5/5. Pt is showing great improvements with increasing tolerance for Rx Plan Plan: Cont to progress strengthening ex's at this time Goals Goal 1:: Decrease B knee pain x 50% to aid with sleep Goal Time Frame: 4-6 Weeks Goal Progress: Progressing Goal 2:: Increase B knee strength x 1 grade toa id with stair negotiation Goal Time Frame: 4-6 Weeks Goal Progress: Progressing Goal 3:: I with HEP Goal Time Frame: 4-6 Weeks Goal Progress: Progressing Anticipated Interventions Patient/Client Instruction: Educate patient on: Condition, Plan of Care For the Purpose of:: To improve self management Therapeutic Exercise to Include: Strength training, Endurance training, Balance training, Flexibilty training, Gait and locomotor training, Dynamic Lumbar Stabilization For the Purpose of:: To decrease pain, To increase ROM, To improve muscle performance and motor function Cryotherapy (ice pack, ice massage): Yes For the Purpose of:: To decrease pain Please do not hesitate to contact me at [phone] by phone or if you have questions or concerns regarding this new plan of care! Sincerely, Yossi Wolfe, PT, ATC
--- NOTE | 2021-04-03 10:33 | HP.PT.NRP ---
FARIDA JHAVERI was seen in my office for initial evaluation on 10/21/20. The following Plan of Care was established for this patient: Initial Frequency: 2-3x /Week Initial Duration: 4-6 Weeks Patient/Client Instruction: Educate patient on: Condition, Plan of Care For the Purpose of:: To improve self management Therapeutic Exercise to Include: Strength training, Endurance training, Balance training, Flexibilty training, Gait and locomotor training, Dynamic Lumbar Stabilization For the Purpose of:: To decrease pain, To increase ROM, To improve muscle performance and motor function Cryotherapy (ice pack, ice massage): Yes For the Purpose of:: To decrease pain This patient was last seen in our office . Pertinent comments regarding their Physical therapy will appear below: This patient was treated for 26 PT visits for B knee pain through the date of 11/27/20. Pt has not returned through todays date and is discontinued at this time. At this point I will be discontinuing this patient from physical therapy. I would be happy to see this patient again in the future if found appropriate by the physician. Thank you! Yossi Wolfe, PT, ATC
== END 2021-01-27 19:00 | disposition home or self-care (01) ==
LOC: PT 12:00
PROVIDERS: PCP Internal Medicine; Referring Provider Clinical Nurse Specialist; Visit Provider Clinical Nurse Specialist
DX: M25.561 Pain in right knee (principal); M25.562 Pain in left knee; G89.29 Other chronic pain
CPT/HCPCS: 97110; 97161; 97164

== ENCOUNTER 2022-02-16 18:52 | Emergency (ER) | payer MEDICARE, SELFPAY ==
[2022-02-16 18:53] VITALS: BP 125/65; PULSE 89; RESP 16; TEMP 36.6; O2SAT 96; BMI 35.2
--- NOTE | 2022-02-16 19:22 | EDS_ITS ---
HPI HPI - Fall History of Present Illness Chief Complaint: Fall Informant: patient Occured/Mechanism Occurred: Today Mechanism/Context: Yes same level fall Usually ambulates: Cane Pain/Injury Location: Occiput Pain Location: head Quality of Pain: Aching Worsened by: Nothing Relieved by: Remaining still Narrative Narrative: Patient presents with a head injury that occurred after a fall today. Patient states she has a history of falls. Patient states she knows that she is going to fall but was unable to catch her self today. Patient denies any syncopal episode. Patient denies any lightheadedness or dizziness. Patient denies any loss of consciousness. Patient denies any paresthesias or weakness. Patient describes her pain as aching. Patient states it is over the occipital area. Patient states her pain is better when she remains still. Patient denies any lacerations. Patient denies any other injuries. [facility] Medical History Anxiety Arthritis BMI 36.0-36.9,adult Depression Diabetes Hemorrhoids Herpes simplex vulvovaginitis History of blood clots History of PSVT (paroxysmal supraventricular tachycardia) Hyperlipidemia Lichen sclerosus Obesity PNA (pneumonia) Sarcoidosis Sleep apnea Spleen anomaly Splenomegaly Vulvar dermatitis Home Medications paroxetine HCl [Paxil] 20 mg PO BID 04/03/16 [History Last Taken 10/28/20] verapamil 80 mg PO QHS 04/03/16 [History Last Taken 10/28/20] cranberry fruit concentrate 250 mg chewable tablet 250 mg PO TID 06/05/19 [History Last Taken 10/28/20] metformin 500 mg tablet 500 mg PO BID 06/05/19 [History Last Taken 10/28/20] naproxen 500 mg tablet 500 mg PO BID 06/05/19 [History Last Taken 10/28/20] gabapentin 400 mg PO BID 10/29/20 [History Last Taken 10/28/20] clorazepate dipotassium 7.5 mg tablet 7.5 mg PO BID PRN 09/09/21 [History Last Taken Unknown] fluticasone propionate 50 mcg/actuation nasal spray,suspension 1 spray INTRANASAL DAILY 09/09/21 [History Last Taken Unknown] rosuvastatin 5 mg tablet 5 mg PO QODAY 09/09/21 [History Last Taken Unknown] Allergy/AdvReac Type Severity Reaction Status Date / Time lidocaine Allergy Intermediate tachycardia Verified 02/16/22 18:55 Penicillins Allergy Hives Verified 02/16/22 18:55 atorvastatin AdvReac Pain in Verified 02/16/22 18:55 joints hydrocodone bitartrate AdvReac Vomiting Verified 02/16/22 18:55 [From Vicodin] oxycodone HCl [From Percocet] AdvReac Vomiting Verified 02/16/22 18:55 Family History Daughter Hypertension Surgical History H/O splenectomy History of breast biopsy History of hysterectomy Social History Smoking Status: Never smoker alcohol intake: current details: social substance use type: does not use caffeine: Yes what type of physical activity do you participate in: walking seatbelt use: always do you feel safe at home: Yes 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 ROS ROS ED Constitutional Constitutional ED: Denies chills or fever(s) Eyes Eyes: Reports blurry vision; Denies change in vision ENT ENT ED: Denies rhinorrhea or sore throat Cardiovascular Cardiovascular: Denies chest pain or palpitations Respiratory/Chest Respiratory/Chest: Denies cough or dyspnea Gastrointestinal Gastrointestinal: Denies nausea or vomiting Genitourinary Genitourinary ED: Denies dysuria or hematuria Musculoskeletal Musculoskeletal: Denies back pain or neck pain Integumentary Denies abscess or rash Neurologic Neurologic: Reports headache(s); Denies weakness Allergic/Immunologic Allergic/Immunologic ED: Denies mouth swelling or urticaria EXAM Physical Exam Const Vital Signs: 02/16/22 18:53 02/16/22 19:16 Temperature 97.8 F Temperature Source Temporal Pulse Rate 89 Respiratory Rate 16 Respiratory Effort Normal Non-Labored Respiratory Depth Normal Respiratory Pattern Normal Blood Pressure 125/65 H Blood Pressure Mean 85 Pulse Ox 96 Oxygen Delivery Method Room Air Room Air Positive well nourished and well developed General Appearance ED: well developed HEENT Reports normocephalic and moist mucous membranes HEENT Narrative: There is tenderness over the occiput. There is no bony crepitance or step-off. There is no lacerations noted. There is no hematoma noted. tenderness Eyes PERRL and EOMs intact bilaterally Neck supple and no JVD Resp normal respiratory effort and clear to auscultation bilaterally Cardio regular rate, regular rhythm and no murmurs GI normal to inspection, nondistended, normoactive bowel sounds and non-tender Palpation: soft Extremity normal to inspection General Extremety ED: Negative for edema or tenderness General Extremity: Negative for edema Neuro oriented x3, CN's II-XII intact bilaterally and no sensory deficits noted Sensorium / Orientation: alert Motor Exam: strength 5/5 throughout Psych mental status grossly normal Skin no rashes or lesions noted MDM MDM MDM Narrative Medical decision making narrative: CT scan of the brain was obtained. There is no acute intracranial abnormality. This was interpreted by the radiologist and reviewed by myself. Patient was advised of her findings. Patient was i nstructed to rest in a dark quiet room. Patient was instructed to take Tylenol or ibuprofen as needed for her pain. Patient was instructed to follow-up with her primary care physician in 5 to 7 days. Patient understood and was agreeable with the plan. All questions were answered. Radiography Diagnostic Testing: Clinical Impression(s) from Imaging Studies Brain CT 02/16/22 19:30 IMPRESSION: There are no acute findings. Chronic involutional changes of the brain. Electronically Signed: Yossi Galindo MD at 19:52 EDT Reading Location ID and State: [facility]– [place] / [place] , Service support , Discharge Plan Triage Chief Complaint: Fall ED Provider: Pieter Kimball Dx/Rx/DC Orders Clinical Impression: Closed head injury, Fall Instructions: ED Fall with Uncertain Cause, ED Head Injury (Adult) Prescriptions: No Action naproxen 500 mg tablet 500 mg PO BID RF: 0 Azo Cranberry 250 mg tablet,chewable 250 mg PO TID RF: 0 metformin 500 mg tablet 500 mg PO BID RF: 0 rosuvastatin [Crestor] 5 mg tablet 5 mg PO QODAY RF: 0 fluticasone propionate [Flonase Allergy Relief] 50 mcg/actuation spray,suspension 1 spray intranasal DAILY RF: 0 clorazepate dipotassium [Tranxene T-Tab] 7.5 mg tablet 7.5 mg PO BID PRN (Reason: Anxiety) RF: 0 paroxetine HCl [Paxil] 20 MG tablet 20 mg PO BID RF: 0 verapamil 80 MG tablet 80 mg PO QHS RF: 0 gabapentin 400 MG capsule 400 mg PO BID RF: 0 Primary Care Provider: Edda Ruano Referrals: Edda Ruano MD [Primary Care Provider] - 5-7 Days Disposition Disposition: Home, Self Care
--- NOTE | 2022-02-16 19:30 | CT_ITS ---
STUDY: CT BRAIN WITHOUT CONTRAST REASON FOR EXAM: Female, 76 years old. Head injury Individualized dose optimization techniques were used for this CT. TECHNIQUE: Transaxial CT imaging of the brain was performed without administration of intravenous contrast material. COMPARISON: None FINDINGS: There are calcifications around the carotid artery. These are noted in the cavernous carotid arteries. Normal calvarium. Normal soft tissues. There is mild cerebral atrophy with widening of the extra-axial spaces and ventricular dilatation. There are areas of decreased attenuation within the white matter tracts of the supratentorial brain, consistent with microvascular disease changes. Normal basal ganglia and thalami. Normal brainstem. There is mild cerebellar atrophy. There is no intracranial hemorrhage. There are no findings of an acute ischemic infarction. Degenerative changes of the mandibular condyles. ASPECTS Score for Acute Strokes: 07/06 CT/Brain/Head without Contrast IMPRESSION: There are no acute findings. Chronic involutional changes of the brain. Electronically Signed: Yossi Galindo MD at 19:52 EDT ,
== END 2022-02-16 20:54 | disposition home or self-care (01) ==
PROVIDERS: Emergency Provider Emergency Medicine; PCP Internal Medicine; Visit Provider Emergency Medicine
DX: S09.90XA Unspecified injury of head, initial encounter (principal); E11.9 Type 2 diabetes mellitus without complications; E78.5 Hyperlipidemia, unspecified; W18.30XA Fall on same level, unspecified, initial encounter; Z91.81 History of falling
CPT/HCPCS: 70450; 99282

== ENCOUNTER 2022-05-03 03:10 | Emergency (ER) | payer MEDICARE, SELFPAY ==
[2022-05-03 03:11] VITALS: BP 146/79; PULSE 85; RESP 18; TEMP 36.3; O2SAT 94; BMI 35.2
--- NOTE | 2022-05-03 03:35 | RAD_ITS ---
EXAM: XR LEFT KNEE COMPLETE, 4 OR MORE VIEWS CLINICAL INDICATION: pain TECHNIQUE: Four or more views of the left knee. This report was created using [employer] report generation technology. COMPARISON: None. FINDINGS: BONES/JOINTS: Moderate medial joint compartment and patellofemoral joint degenerative changes. No joint effusion. No acute fracture. No subluxation. Normal alignment. No sclerotic or destructive changes observed. SOFT TISSUES: Unremarkable. No soft tissue swelling or gas. No radiopaque foreign body. RAD/Knee 4 or More Views IMPRESSION: 1. Moderate medial joint compartment and patellofemoral joint degenerative changes. 2. No joint effusion. Electronically Signed: Martin Patrick MD at 4:01 EDT ,
[2022-05-03] MEDS: diazePAM 5 MG Tablet PO (03:49)
--- NOTE | 2022-05-03 03:49 | EDS_ITS ---
HPI History of Present Illness Chief Complaint: Lower Extremity Injury Informant: patient Narrative Narrative: Increasing pain left knee awaking her at 2 AM this morning. She has reported gait instability over the last 6 months. She has been referred to neurology by her PCP. She is currently on gabapentin. States 11 PM already also took her naproxen with her gabapentin. She has had arthritis of both knees. She has been using a cane for the past 2 weeks. There is been no falls or injuries. She did report doing some weed pulling earlier today for 30 minutes when she was sitting down. Further discussion of the pain she said spasms more in the medial knee that goes up the leg. She is able to ambulate. She is brought in by her daughter. Prior similar symptoms: Yes PFSH [facility] Medical History Anxiety Arthritis BMI 36.0-36.9,adult Depression Diabetes Hemorrhoids Herpes simplex vulvovaginitis History of blood clots History of PSVT (paroxysmal supraventricular tachycardia) Hyperlipidemia Lichen sclerosus Obesity PNA (pneumonia) Sarcoidosis Sleep apnea Spleen anomaly Splenomegaly Vulvar dermatitis Home Medications paroxetine HCl 20 mg tablet (Paxil) 20 mg PO BID DEPRESSION 04/03/16 [History Last Taken 10/28/20] verapamil 80 mg tablet 80 mg PO QHS HEART 04/03/16 [History Last Taken 10/28/20] cranberry fruit concentrate 250 mg chewable tablet (Azo Cranberry) 250 mg PO TID supplement 06/05/19 [History Last Taken 10/28/20] metformin 500 mg tablet 500 mg PO BID blood sugar 06/05/19 [History Last Taken 10/28/20] naproxen 500 mg tablet 500 mg PO BID pain 06/05/19 [History Last Taken 10/28/20] gabapentin 400 mg capsule 400 mg PO BID nerve pain 10/29/20 [History Last Taken 10/28/20] clorazepate dipotassium 7.5 mg tablet (Tranxene T-Tab) 7.5 mg PO BID PRN Anxiety 09/09/21 [History Last Taken Unknown] fluticasone propionate 50 mcg/actuation nasal spray,suspension (Flonase Allergy Relief) 1 spray intranasal DAILY 09/09/21 [History Last Taken Unknown] rosuvastatin 5 mg tablet (Crestor) 5 mg PO QODAY 09/09/21 [History Last Taken Unknown] diazepam 5 mg tablet 5 mg PO Q8 PRN Muscle Spasm #12 tabs 05/03/22 [Rx Last Taken Unknown] Allergy/AdvReac Type Severity Reaction Status Date / Time lidocaine Allergy Intermediate tachycardia Verified 02/16/22 18:55 Penicillins Allergy Hives Verified 02/16/22 18:55 atorvastatin AdvReac Pain in Verified 02/16/22 18:55 joints hydrocodone bitartrate AdvReac Vomiting Verified 02/16/22 18:55 [From Vicodin] oxycodone HCl [From Percocet] AdvReac Vomiting Verified 02/16/22 18:55 Family History Daughter Hypertension Surgical History H/O splenectomy History of breast biopsy History of hysterectomy Social History Smoking Status: Never smoker alcohol intake: current details: social substance use type: does not use caffeine: Yes what type of physical activity do you participate in: walking seatbelt use: always do you feel safe at home: Yes 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 ROS ED Constitutional Constitutional ED: Denies chills, fever(s) or sweats Eyes Eyes: Denies change in vision ENT ENT ED: Denies dysphagia or sore throat Cardiovascular Cardiovascular: Denies chest pain, leg edema, palpitations or racing heartbeat Respiratory/Chest Respiratory/Chest: Denies cough, dyspnea or dyspnea on exertion Gastrointestinal Gastrointestinal: Denies abdominal pain, diarrhea, nausea or vomiting Genitourinary Genitourinary ED: Denies dysuria, hematuria or urinary frequency Musculoskeletal Musculoskeletal: Reports extremity pain and other Details: Left knee pain ; Denies back pain or neck pain Integumentary Denies rash or wounds Neurologic Neurologic: Denies headache(s), paresthesias or weakness EXAM Physical Exam Const Vital Signs: 05/03/22 03:11 Temperature 97.3 F L Temperature Source Temporal Pulse Rate 85 Respiratory Rate 18 Blood Pressure 146/79 H Blood Pressure Mean 101 Pulse Ox 94 Oxygen Delivery Method Room Air Positive well nourished and well developed General Appearance ED: well developed and NAD HEENT Reports moist mucous membranes normocephalic and atraumatic Eyes PERRL, EOMs intact bilaterally and conjunctivae normal General Eye ED: Yes normal appearance of both eyes Neck no lymphadenopathy and supple General: Negative for tenderness Chest Wall Chest: Negative for tenderness Resp normal respiratory effort and normal air movement Effort and Inspection: symmetric chest movement; Negative for respiratory distress Cardio regular rate, regular rhythm and no murmurs Peripheral Pulses: pulses 2+ throughout GI normal to inspection, nondistended, normoactive bowel sounds and non-tender Palpation: Negative for guarding or rebound tenderness present Back/Spine no CVA tenderness and no thoracic nor lumbar tenderness Extremity Extremity Narrative: Left lower extremity: Negative logroll. Knee extensor mechanism intact. Negative varus and valgus. No deformities. There is tender palpation along the abductor muscles of the thigh reproducible with palpation. Negative Arely's test. Skin intact. Neuro vas intact distally. General Extremety ED: Yes tenderness; Negative for edema General Extremity: Negative for edema Neuro oriented x3 and no sensory deficits noted Sensorium / Orientation: awake and alert Skin no rashes or lesions noted and no wounds MDM MDM MDM Narrative Medical decision making narrative: Clinical exam concerns for muscle spasms she had outdoor activities earlier this evening. She was treated with Valium. 4 view x-ray left knee reviewed by myself and read by radiology moderate degenerative changes noted. No joint effusions. On reevaluation improving symptoms. Short prescription for Valium to use as needed sent to her pharmacy. She is on naproxen and gabapentin. Anshul wrap placed to the knee. Follow-up with her PCP. All questions were answered. Radiography Diagnostic Testing: Clinical Impression(s) from Imaging Studies Knee X-Ray 05/03/22 03:35 IMPRESSION: 1. Moderate medial joint compartment and patellofemoral joint degenerative changes. 2. No joint effusion. Electronically Signed: Martin Patrick MD at 4:01 EDT , Discharge Plan Triage Chief Complaint: Lower Extremity Injury ED Provider: Dionisio Blandon Dx/Rx/DC Orders Clinical Impression: Muscle spasm of left lower extremity, Osteoarthritis of left knee, Sarcoidosis Instructions: ED Muscle Spasm, ED Osteoarthritis Prescriptions: New diazepam [diazepam] 5 mg tablet 5 mg PO Q8 PRN (Reason: Muscle Spasm) Qty: 12 0RF No Action naproxen 500 mg tablet 500 mg PO BID Azo Cranberry 250 mg tablet,chewable 250 mg PO TID metformin 500 mg tablet 500 mg PO BID rosuvastatin [Crestor] 5 mg tablet 5 mg PO QODAY fluticasone propionate [Flonase Allergy Relief] 50 mcg/actuation spray,s uspension 1 spray intranasal DAILY Rx Instructions: administer into each nostril clorazepate dipotassium [Tranxene T-Tab] 7.5 mg tablet 7.5 mg PO BID PRN (Reason: Anxiety) paroxetine HCl [Paxil] 20 MG tablet 20 mg PO BID verapamil 80 MG tablet 80 mg PO QHS gabapentin 400 MG capsule 400 mg PO BID Primary Care Provider: Edda Ruano Referrals: Edda Ruano MD [Primary Care Provider] - 3-5 Days if not improving Disposition Disposition: Home, Self Care
[2022-05-03 04:19] VITALS: BP 134/68; PULSE 72; RESP 18; O2SAT 98
== END 2022-05-03 04:28 | disposition home or self-care (01) ==
PROVIDERS: Emergency Provider Emergency Medicine; PCP Internal Medicine; Visit Provider Emergency Medicine
DX: M17.12 Unilateral primary osteoarthritis, left knee (principal); E11.9 Type 2 diabetes mellitus without complications; M62.838 Other muscle spasm; E78.5 Hyperlipidemia, unspecified; D86.9 Sarcoidosis, unspecified; M25.569 Pain in unspecified knee
CPT/HCPCS: 73564; 99283

== ENCOUNTER 2022-05-18 13:03 | Outpatient (RCR) | payer MEDICARE, SELFPAY ==
--- NOTE | 2022-05-18 15:36 | HP.PTEVAL_ITS ---
Patient's Visit Information FARIDA JHAVERI is a 76 year old F referred to Physical Therapy by DANIELLA KING with a diagnosis of gait instability and balance disorder. Date of Evaluation: 05/18/22 Physical Therapist: QUAN Rg - Visit Plan Plan: Pt is not able to pay her co-pay. I feel the pt would benefit from PT for balance (on foam and off foam), gait training and strengthening along with functional training but she is not able to due to high co-pay. Pt will get her MRI and results of this PT visit and discuss this with her Dr. She feels that she is losing her ability to walk very quickly and has a family history of losing the ability to walk for no known reason to her. Will get the following for a HEP and she will do this at home in the meantime until she sees her Dr and discusses the results. HEP: bridges, standing hip flex, abd, ext, standing heel and toe raises, bridges, LAQ. HOLD CHART until after Dr appt per pt request. - Subjective Pt reports that she is struggling financially and can only come for one visit. Pt is having lots of issues. She has osteopenia and the femoral neck B is ready to break, she has one fx lumbar, kissing spine, sacrcodosis. On Jun 02 they are doing a brain MRI to see PD or MS and sarcodosis going into her brain. Pt reports that she has fallen at least 10 times in the last year. She has hurt herself with bruises and knot on her head. She knows that she is going down but can not catch herself. She does get dizzy at different times and sometimes it feels like she has just gotten off the merry go round and then she blacks out for about a millimeter of a second and that is why they are doing and MRI. This all came on really quick. and got worse fast. She has no LBP but just knee pain. She has stairs at home with a railing that she uses (bed and bath upstairs and washer and dryer are upstairs). - Objective Gait: Walks with short strides and WBOS and very stiff legged. FGA: 8. CATSIB: 81/120. LE MMT: R hip flex 8# and L hip flex 7.2#. R knee ext 12.4# and L knee ext 15.3#. R knee flex 11.2# and L knee flex 8#. R hip abd 4-/d and L 4- /5. Went from sitting to supine and got room spinning dizziness that lasted less than 60 seconds but could not see nystagmus cause pt would not open her eyes.... Possible BPPV??? Pt was able to roll supine to L sidelying and then L sidelying to R sidelying with no spinning. - Balance/Special Test Scores Functional Gait Assessment Score: 8 % Disability: 73.3400 CATSIB Score (Max score 120 seconds): 81 Lower Extremity Functional Score: 25 - Anticipated Interventions Thank you for the opportunity to evaluate your patient. For Medicare and Medicare HMO plans, please review the plan of care and approve it. It will need to be FAXED BACK to us at [phone] for Medicare purposes. For Medicare only, by signing this I certify the plan of care. Please let me know if there are questions or concerns regarding this plan of care. Physician Signature: Date:
--- NOTE | 2022-08-28 08:27 | HP.PTDCSUM ---
It has been my pleasure to treat FARIDA JHAVERI referred by DANIELLA KING, with the diagnosis of gait instability and balance disorder for a total of 1 visit(s). Discharge Date: 08/28/22 Please see the following information for a summary of their discharge status. Plan: Pt is not able to pay her co-pay. I feel the pt would benefit from PT for balance (on foam and off foam), gait training and strengthening along with functional training but she is not able to due to high co-pay. Pt will get her MRI and results of this PT visit and discuss this with her Dr. She feels that she is losing her ability to walk very quickly and has a family history of losing the ability to walk for no known reason to her. Will get the following for a HEP and she will do this at home in the meantime until she sees her Dr and discusses the results. HEP: bridges, standing hip flex, abd, ext, standing heel and toe raises, bridges, LAQ. HOLD CHART until after Dr appt per pt request. Discharge Comments: DC PT If there are questions or concerns regarding this patient's physical therapy, please feel free to call me at [phone]. Thank you for the referral of this patient. Sincerely, Steffi Ramirez, MPT Balance/Gait/Functional tests - Balance/Special Test Scores Functional Gait Assessment Score: 8 % Disability: 73.3400 CATSIB Score (Max score 120 seconds): 81 Lower Extremity Functional Score: 25
== END 2022-05-18 19:00 | disposition home or self-care (01) ==
LOC: PT 13:03
PROVIDERS: PCP Internal Medicine; Referring Provider Nurse Practitioner; Visit Provider Nurse Practitioner
DX: R26.81 Unsteadiness on feet (principal); R26.89 Other abnormalities of gait and mobility
CPT/HCPCS: 97162

== ENCOUNTER 2022-12-16 18:22 | Inpatient (IN) | payer MEDICARE, SELFPAY ==
[2022-12-16] VITALS (24 sets, daily range): BP systolic 120–152; BP diastolic 58–94; PULSE 80–98; RESP 12–19; TEMP 36.3–37.4; O2SAT 93–98; BMI 35.3; BMI 34.3
--- NOTE | 2022-12-16 18:31 | CT_ITS ---
We are attempting to reach an attending provider to discuss findings. An addendum with communication details will be sent when the communication is complete. STUDY: CT HEAD STROKE PROTOCOL W/O CONTRAST INJECTION REASON FOR EXAM: Female, 77 years old. Neuro deficit, acute, stroke suspected -- Diplopia, vertigo. Suspect posterior stroke RADIATION DOSAGE (If Supplied By Facility): CTDIvol = ( ) mGy, DLP = ( 829.85 ) mGycm TECHNIQUE: Transaxial CT imaging of the brain was performed without administration of intravenous contrast material. Individualized dose optimization techniques were used for this CT. COMPARISON: February 16, 2022 FINDINGS: Normal soft tissue structures. Normal calvarium. Normal size ventricles and extra-axial spaces for the patient''s age. Normal white matter tracts of the cerebral hemispheres. Normal basal ganglia and thalami. Normal brainstem. Normal cerebellum. There is no intracranial hemorrhage. There are no findings of an acute ischemic infarction. Normal visualized paranasal sinuses. ASPECT score: 10 CT/STROKE Brain/Head without Cont IMPRESSION: No acute intracranial or calvarial abnormality. Electronically Signed: Jj Puente DO at 18:54 EDT Reading Location ID and State: [address] [place] [address] Tel [phone], Service support ,
--- NOTE | 2022-12-16 18:32 | CT_ITS ---
We are attempting to reach an attending provider to discuss findings. An addendum with communication details will be sent when the communication is complete. STUDY: CTA HEAD AND NECK WITH CONTRAST REASON FOR EXAM: Female, 77 years old. No deficit. Acute stroke suspected. RADIATION DOSAGE (If Supplied By Facility): CTDIvol = ( 19.47 ) mGy, DLP = ( 582.07 ) mGycm TECHNIQUE: CT angiography was performed with a multi-detector CT scanner. Data acquisition was obtained from the skull base through the vertex following intravenous administration of IV 100mL Isovue-370. MIP images were reconstructed from the axial data set. Post-processing of the angiographic images was performed, with multiplanar reformation and 3D reconstruction. Individualized dose optimization techniques were used for this CT. COMPARISON: No relevant priors. FINDINGS: Normal bilateral petrous carotid arteries. Normal right cavernous carotid artery with a normal supraclinoid bifurcation. Normal left cavernous carotid artery with a normal supraclinoid bifurcation. Normal right A1 segments of the anterior cerebral artery. There is hypoplastic development of the left A1 segment of the anterior cerebral arteries with an atretic but intact artery. Normal intact anterior communicating artery (ACOM). Normal bilateral A2 segments of the anterior cerebral arteries. Normal right M1 and M2 segments of the middle cerebral arteries, with a normal M1 bifurcation. Normal left M1 and M2 segments of the middle cerebral arteries, with a normal M1 bifurcation. There is non-visualization of the right posterior communicating artery (PCOM). Normal left posterior communicating artery (PCOM). Normal bilateral vertebral arteries. Normal basilar artery with a normal basilar bifurcation. The visualized bilateral superior cerebellar (SCA) arteries are normal. Normal P1, P2 and visualized P3 segments of the right posterior cerebral artery. There is hypoplasia of the P1 segment of the left posterior cerebral artery. The P2 and P3 segments are supplied via the patent posterior communicating artery. There is no demonstrated aneurysm of the [place] of [place]. There is no demonstrated abnormality of the visualized brain. AORTIC ARCH: Atherosclerotic changes of the aortic arch without visualized dissection or aneurysm. Normal origins of the brachiocephalic, left common carotid, and left subclavian arteries. RIGHT CAROTID ARTERIES: Tortuosity of the right common carotid artery (CCA). Normal right common carotid bulb. Normal origin of the right internal carotid (ICA) artery without a hemodynamically significant stenosis. Tortuosity of the visualized cervical portion of the right internal carotid artery. Normal origin of the right external carotid artery (ECA). LEFT CAROTID ARTERIES: Tortuous left common carotid artery (CCA). Minimal calcific plaque at the carotid bulb with minimal stenosis. Normal origin of the left internal carotid (ICA) artery without a hemodynamically significant stenosis. Tortuous visualized cervical portion of the left internal carotid artery. Normal origin of the left external carotid artery (ECA). VERTEBRAL ARTERIES: There is enhancement within the bilateral vertebral arteries with a small right vertebral artery, and a dominant left vertebral artery. CT/STROKE CTA Head AND Neck W/Con IMPRESSION: 1. Tortuous carotid arteries was minimal atherosclerotic changes at the left carotid bulb. There is no significant stenosis. 2. Normal vertebral arteries. 3. 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 The A2 segment is supplied via the patent anterior communicating artery. 4. Hypoplastic P1 segment of the left posterior cerebral artery. The posterior artery is supplied via the patent posterior communicating artery. 5. No evidence of aneurysm or large vessel occlusion. Electronically Signed: Jj Puente DO at 19:06 EDT Reading Location ID and State: [address] [place] [address] Tel [phone], Service support ,
--- NOTE | 2022-12-16 18:33 | ED.RN ---
Addendum entered by Kell Gross 12/16/22 18:42: STROKE ALERT CALLED FROM [facility]. PT ARRIVED VIA EMS. Original Note: THIS RN SPOKE TO DR DE LA VEGA ABOUT PT SYMPTOMS. STROKE ALERT CALLED, CHARGE NURSE TOOK PT TO CT SCAN
--- NOTE | 2022-12-16 18:37 | ED.VIS.STROK ---
HPI History of Present Illness Chief Complaint: Neuro S/Sx Detail of Chief Complaint: Was evaluated in triage for possible stroke. Informant: patient Onset/Context/Timing Onset: Hours (1731) Context: Sudden Onset Timing: Continuous Onset: Diplopia, vertigo and problems with vision Current Severity: Mild Maximum Severity: Moderate Worsened by: Nothing Relieved by: Nothing Associated Symptoms Associated Symptoms: Positive for Headache and Nausea; Negative for Vomiting or Chest Pain Narrative Narrative: Patient is a 77-year-old woman who by squad for dizziness. Patient has history of type 2 diabetes and hypertension. She also has hypercholesterolemia. She is on no antithrombotic or anticoagulant. Patient denies trouble with speech or swallowing. Patient denies paresthesia, anesthesia or motor weakness upper lower extremity. Prior similar symptoms: No Recent Illness/Hospitalization: No [facility] Medical History (Updated 12/16/22 @ 19:[address] Kitty Brooks MD) Anxiety and depression Arthritis BMI 36.0-36.9,adult Diabetes Hemorrhoids Herpes simplex vulvovaginitis History of blood clots History of PSVT (paroxysmal supraventricular tachycardia) Hyperlipidemia Lichen sclerosus Obesity Sarcoidosis Sleep apnea Spleen anomaly Splenomegaly Vulvar dermatitis Home Medications paroxetine HCl 20 mg tablet (Paxil) 20 mg PO BID DEPRESSION 04/03/16 [History Last Taken 10/28/20] verapamil 80 mg tablet 80 mg PO QHS HEART 04/03/16 [History Last Taken 10/28/20] cranberry fruit concentrate 250 mg chewable tablet (Azo Cranberry) 250 mg PO TID supplement 06/05/19 [History Last Taken 10/28/20] metformin 500 mg tablet 500 mg PO BID blood sugar 06/05/19 [History Last Taken 10/28/20] naproxen 500 mg tablet 500 mg PO BID pain 06/05/19 [History Last Taken 10/28/20] gabapentin 400 mg capsule 400 mg PO BID nerve pain 10/29/20 [History Last Taken 10/28/20] clorazepate dipotassium 7.5 mg tablet (Tranxene T-Tab) 7.5 mg PO BID PRN Anxiety 09/09/21 [History Last Taken Unknown] fluticasone propionate 50 mcg/actuation nasal spray,suspension (Flonase Allergy Relief) 1 spray intranasal DAILY 09/09/21 [History Last Taken Unknown] rosuvastatin 5 mg tablet (Crestor) 5 mg PO QODAY 09/09/21 [History Last Taken Unknown] diazepam 5 mg tablet 5 mg PO Q8 PRN Muscle Spasm #12 tabs 05/03/22 [Rx Last Taken Unknown] Allergy/AdvReac Type Severity Reaction Status Date / Time lidocaine Allergy Intermediate tachycardia Verified 12/16/22 18:27 Penicillins Allergy Hives Verified 12/16/22 18:27 atorvastatin AdvReac Pain in Verified 12/16/22 18:27 joints hydrocodone bitartrate AdvReac Vomiting Verified 12/16/22 18:27 [From Vicodin] oxycodone HCl [From Percocet] AdvReac Vomiting Verified 12/16/22 18:27 Family History (Updated 12/16/22 @ 19:[address] 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 ROS ROS ED Constitutional Constitutional ED: Denies chills, fever(s), subjective, sweats or weakness Eyes Eyes: Reports blurry vision, change in vision and diplopia ENT ENT ED: Denies ear pain, rhinorrhea or sore throat Cardiovascular Cardiovascular: Denies chest pain, palpitations, paroxysmal nocturnal dyspnea or racing heartbeat Respiratory/Chest Respiratory/Chest: Denies cough, dyspnea, dyspnea on exertion or paroxysmal nocturnal dyspnea Gastrointestinal Gastrointestinal: Reports nausea; Denies abdominal pain, constipation, diarrhea, melena or vomiting Genitourinary Genitourinary ED: Denies dysuria, hematuria or urinary frequency Musculoskeletal Musculoskeletal: Denies arthralgias, back pain, myalgias or neck pain Integumentary Denies Abrasions or rash Neurologic Neurologic: Reports headache(s); Denies paresthesias or weakness Psychiatric Psychiatric: Denies anxiety or depression Endocrine Endocrinology: Denies polydipsia, polyphagia or polyuria Hematologic/Lymphatic Hematologic/Lymphatic: Denies easy bleeding or easy bruising EXAM Physical Exam Const Vital Signs: 12/16/22 18:25 12/16/22 18:49 12/16/22 18:49 Temperature 97.4 F L 98.3 F Temperature Source Temporal Temporal Pulse Rate 96 98 Respiratory Rate 18 16 Blood Pressure 137/75 H 142/84 H Blood Pressure Mean 95 103 Blood Pressure Source Blood Pressure Position Blood Pressure Location Pulse Ox 96 94 Oxygen Delivery Method Room Air Room Air Room Air 12/16/22 19:00 12/16/22 19:21 12/16/22 19:30 Temperature 97.7 F L Temperature Source Oral Pulse Rate 92 96 Respiratory Rate 15 17 Blood Pressure 142/84 H 152/85 H 142/94 H Blood Pressure Mean 103 110 Blood Pressure Source Blood Pressure Position Blood Pressure Location Pulse Ox 98 94 Oxygen Delivery Method Room Air Room Air 12/16/22 19:11 Temperature 97.7 F L Temperature Source Oral Pulse Rate 94 Respiratory Rate 14 Blood Pressure 152/85 H Blood Pressure Mean 107 Blood Pressure Source Monitor Blood Pressure Position Semi-Fowlers Blood Pressure Location Left Arm Pulse Ox 94 Oxygen Delivery Method Room Air Positive well nourished, well developed and obese Constitutional Narrative: Head is normocephalic. General Appearance ED: well developed and NAD Nutritional Appearance: obese HEENT Reports moist mucous membranes atraumatic Eyes PERRL and EOMs intact bilaterally Eyes Narrative: There is no ecchymosis. Patient does have a visual field cut. She has a right homonymous upper quadrantanopsia General Eye ED: Negative for pale conjunctiva or scleral icterus Neck no lymphadenopathy, supple and no JVD Chest Wall inspection of chest normal and palpation of chest normal Resp normal respiratory effort and clear to auscultation bilaterally Cardio Rate: regular rate Rhythm: regular rhythm Heart Sounds: S1 normal and S2 normal GI normal to inspection, nondistended, normoactive bowel sounds Back/Spine no CVA tenderness Extremity normal to inspection Neuro oriented x3, CN's II-XII intact bilaterally and no sensory deficits noted [place] Coma Scale: document GCS findings Spontaneous Obeys Commands Oriented 15 Sensorium / Orientation: alert Speech: speech normal Psych mental status grossly normal Skin no wounds General Skin Exam: Negative for jaundice Lesions: no lesions Rashes: no rashes NIHSS NIHSS Initial: 1a Level of Consciousness: 0 1b LOC Questions (Score 2 if aphasic/stupor): 0 1c LOC Commands (Only score 1st attempt): 0 2 Best Gaze (If aphasic, use reflexive mvmts.): 0 3 Visual: 1 4 Facial Palsy: 0 5 Motor Arm Right (UN = amputation/fusion): 0 5 Motor Arm Left: 0 6 Motor Leg Right: 0 6 Motor Leg Left: 0 7 Limb ataxia (Only + if out of proportion): 0 8 Sensory (Aphasia/stupor=0 or 1, coma=2): 0 9 Best Language: 0 10 Dysarthria (mute, coma=2, intubated=UN): 0 11 Extinction and Inattention (only scored if +): 0 Total Score: 1 MDM MDM MDM Narrative Medical decision making narrative: Differential diagnosis would be peripheral versus central vertigo. In light of diplopia, vertigo with a right homonymous upper quadrant opiate findings are concerning for a posterior stroke cerebral stroke. Stroke order set was initiated. Will contact neurologist at [facility]. Patient is within the window for tPA. Contraindications none. Dr. Waters the neurologist at [facility] had patient ambulate. She is now complaining of numbness left side. She cannot ambulate. He went over the risk factors of thrombolytic. She gave consent. Tenecteplase was ordered. History & Record Review Additional record(s) reviewed:: Prior inpatient record, Prior outpatient record and Prior labs Lab Data Labs: Laboratory Results - last 24 hr 12/16/22 12/16/22 12/16/22 18:35 18:35 18:35 WBC 11.5 H RBC 4.85 Hgb 14.7 Hct 45.4 MCV 93.6 MCH 30.3 MCHC 32.4 RDW Std Deviation 53.9 H RDW Coeff of Kadi 15.6 H Plt Count 421 MPV 10.5 Immature Gran % (Auto) 0.300 Neut % (Auto) 47.8 Lymph % (Auto) 37.0 Swift % (Auto) 12.3 H Eos % (Auto) 2.2 Baso % (Auto) 0.4 Absolute Neuts (auto) 5.5 Absolute Lymphs (auto) 4.24 Nucleated RBC % 0 PT 13.0 INR 1.0 APTT 24.5 Sodium 136 Potassium 3.8 Chloride 104 Carbon Dioxide 23.0 Anion Gap 9 BUN 17 Creatinine 1.01 Estim Creat Clear Calc 36.32 Est GFR (MDRD) Af Amer 69 Est GFR (MDRD) Non-Af 57 L BUN/Creatinine Ratio 16.8 Glucose 159 H Calcium 9.8 Troponin I High Sens 5 POC Glucose 12/16/22 18:47 WBC RBC Hgb Hct MCV MCH MCHC RDW Std Deviation RDW Coeff of Kadi Plt Count MPV Immature Gran % (Auto) Neut % (Auto) Lymph % (Auto) Swift % (Auto) Eos % (Auto) Baso % (Auto) Absolute Neuts (auto) Absolute Lymphs (auto) Nucleated RBC % PT INR APTT Sodium Potassium Chloride Carbon Dioxide Anion Gap BUN Creatinine Estim Creat Clear Calc Est GFR (MDRD) Af Amer Est GFR (MDRD) Non-Af BUN/Creatinine Ratio Glucose Calcium Troponin I High Sens POC Glucose 141 H Radiography Diagnostic Testing: Clinical Impression(s) from Imaging Studies Brain CT 12/16/22 18:31 IMPRESSION: No acute intracranial or calvarial abnormality. Electronically Signed: Jj Puente DO at 18:54 EDT Reading Location ID and State: [address] [place] [address] Tel [phone], Service support , ADDENDUM: 12/16/22 1914 IMPRESSION: No acute intracranial or calvarial abnormality. N.B. : The above Results were Read Back by Jj Puente DO to Alejandro Chaudhari MD, and understanding confirmed on 12/16/2022 19:07:51 (ET). Electronically Signed: Jj Puente DO at 18:54 EDT Reading Location ID and State: [facility] / [place] Tel [phone], Service support , Head/Neck CTA 12/16/22 18:32 IMPRESSION: 1. Tortuous carotid arteries was minimal atherosclerotic changes at the left carotid bulb. There is no significant stenosis. 2. Normal vertebral arteries. 3. 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 The A2 segment is supplied via the patent anterior communicating artery. 4. Hypoplastic P1 segment of the left posterior cerebral artery. The posterior artery is supplied via the patent posterior communicating artery. 5. No evidence of aneurysm or large vessel occlusion. Electronically Signed: Jj Puente DO at 19:06 EDT Reading Location ID and State: [facility] / [place] Tel [phone], Service support , ADDENDUM: 12/16/22 1915 IMPRESSION: 1. Tortuous carotid arteries was minimal atherosclerotic changes at the left carotid bulb. There is no significant stenosis. 2. Normal vertebral arteries. 3. 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 The A2 segment is supplied via the patent anterior communicating artery. 4. Hypoplastic P1 segment of the left posterior cerebral artery. The posterior artery is supplied via the patent posterior communicating artery. 5. No evidence of aneurysm or large vessel occlusion. N.B. : The above Results were Read Back by Jj Puente DO to Alejandro Chaudhari MD, and understanding confirmed on 12/16/2022 19:09:13 (ET). Electronically Signed: Jj Puente DO at 19:06 EDT Reading Location ID and State: [facility] / [place] Tel [phone], Service support , Chest X-Ray 12/16/22 19:25 IMPRESSION: Degenerative changes, as described above. No demonstrated acute cardiopulmonary process. No major interval change. Electronically Signed: Jj Puente DO at 19:51 EDT Reading Location ID and State: [facility] / [place] Tel [phone], Service support , EKG Initial EKG: Attestation: I personally reviewed and interpreted this EKG as follows: Interpretation: Sinus Tachycardia (Sinus tachycardia rate of 101. [place] interval 262 ms. QRS duration 80 ms. QT durations 168 ms. [place] is normal. There is mild nonspecific changes noted.) Stroke Documentation Questions Stroke Team Activated: Yes Reviewed Inclusion/Exclusion criteria: Yes No contraindications from thrombolytic administration: Yes Risks, Benefits, Alternatives Discussed: Yes Critical Care Time Critical Care Time: Yes Critical care time (excluding procedures): 30-74 minutes (33 minutes), Including time spent: (History, physical, documentation, review of prior records), Discussing w/Patient &/or Family/Fusing Machine Tender, Discussing w/Consultants, Arranging Admission or Transfer, Performing Direct Patient Care at Bedside and - (Administration of tenecteplase) Discharge Plan Dx/Rx/DC Orders Clinical Impression: Acute ischemic left posterior cerebral artery (NATIONAL ACCOUNT DIRECTOR) stroke, Hyperlipidemia, Obesity, Right homonymous superior quadrantanopia, Vertigo due to acute cerebrovascular disease, Inability to walk Disposition Disposition: Acute Care [facility]
[2022-12-16 18:48] LABS: Absolute Lymphocyte Count 4.24 X10^3/uL (0.83-4.51); Absolute Neutrophil Count 5.5 X10^3/uL (2.0-7.7); Basophil# 0.05 X10^3/uL; Basophil% 0.4 % (0-1); Eosinophil# 0.25 X10^3/uL; Eosinophils% 2.2 % (0-5); Hematocrit 45.4 % (37-47); Hemoglobin 14.7 g/dL (12.0-15.0); Lymphocyte # 4.24 X10^3/ul (0.83-4.51); Mean Corp Hgb Conc 32.4 g/dL (32-36); Mean Corpuscular Hgb 30.3 pg (27.0-32.0); Mean Corpuscular Volume 93.6 fL (81-99); Mean Platelet Vol. 10.5 fl (6.2-12.0); Monocyte# 1.41 X10^3/uL; Monocyte% 12.3 % (0-10); NRBC Flagged by Analyzer 0 % (0-5); Neutrophil # 5.46 X10^3/uL (2.7-7.7); Neutrophil % 47.8 % (47-70); Platelet Count 421 K/mm3 (150-450); RBC Distribution Width CV 15.6 % (11.6-14.6); RBC Distribution Width SD 53.9 fl (35.1-43.9); Red Blood Count 4.85 M/mm3 (4.2-5.4); White Blood Count 11.5 K/mm3 (4.4-11.0)
--- NOTE | 2022-12-16 18:51 | CM.ED ---
Social Work Note Referral Source: stroke alert Referral reason: emotional support. SW met with RN to inquire about patient's family in response to stroke alert. Patient's grandson is present in room and is on Autism spectrum and nonverbal. SW met with patient and introduced herself by showing patient's grandson SW's badge. SW inquired if patient needed water, patient shook his head yes, SW provided water. recharger Jimena contacted patient's daughter to come into the ED. SW remains available if needs arise. Ludy Vogel ELECTRIC TRIPPER MACHINE OPERATOR, DARLYN
[2022-12-16 18:57] LABS: Partial Thromboplast Time 24.5 Seconds (24.1-36.2)
[2022-12-16 19:09] LABS: Anion Gap 9 (5-15); BUN 17 mg/dL (7-18); BUN/Creat Ratio 16.8 RATIO (10-20); Calcium,Total 9.8 mg/dL (8.5-10.1); Chloride 104 mmol/L (98-107); Creatinine, Serum 1.01 mg/dL (0.55-1.02); EST Glomerular Filtration Rate 57 mL/min (>60); Est Glom Filt Rate - Afr Amer 69 mL/min (>60); Estimated Creatinine Clearance 36.32 ml/min; Glucose 159 mg/dL (74-106); Potassium 3.8 mmol/L (3.5-5.1); Sodium Level 136 mmol/L (136-145); Troponin-I HS 5 pg/mL (3.0-54.0)
[2022-12-16 19:25] LABS: Bedside Glucose 141 mg/dL (74-106)
--- NOTE | 2022-12-16 19:25 | RAD_ITS ---
STUDY: X-RAY CHEST REASON FOR EXAM: Female, 77 years old. No deficit. Acute stroke suspected. Patient was sitting at her computer when she became dizzy. Balance problems. Intermittent blurry vision. TECHNIQUE: Single AP portable view of the chest. COMPARISON: December 05, 2020 FINDINGS: The lungs are clear and expanded. There is no demonstrated pleural abnormality. Normal size heart. Normal mediastinum and kendrick. Normal visualized pulmonary arteries. There is atherosclerotic calcification of the aortic arch with tortuosity. There are diffuse degenerative changes of the visualized thoracic spine. There is degenerative osteoarthritis of the bilateral shoulders. There is no demonstrated abnormality of the visualized soft tissue structures of the upper abdomen. RAD/Chest 1 View IMPRESSION: Degenerative changes, as described above. No demonstrated acute cardiopulmonary process. No major interval change. Electronically Signed: Jj Puente DO at 19:51 EDT ,
[2022-12-16] MEDS: 0.9% Normal Saline 1,000 ML 100 ML IV ×2 (19:37→21:41)
--- NOTE | 2022-12-16 19:40 | PCM.HP.STD ---
HPI - General General Date of Admission: 12/16/22 Date of Service: 12/16/22 Chief Complaint: Vision changes, imbalance, L sided weakness/paresthesias. 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 In the ED evaluation notable for right quadrantopia as well as left-sided mild weakness/numbness and ataxia in the left lower extremity with difficulty walking/central ataxia. Stroke alert initiated and per neurology assessment NIH stroke scale reported as 5 with recommendation for thrombolytic administration, admission and continued routine stroke evaluation in the setting of tenecteplase administration. Work-up in the ED included T97.4, heart rate 96, BP 137/75, respiratory rate 18, 96% on room air, CBC with WC 11.5, hemoglobin 14.7, platelet 421 without marked shift, unremarkable coags, BMP with glucose 159 otherwise not marked appearing, troponin 5, CT of the brain with no acute intracranial or calvarial abnormality, CTA head and neck with tortuous carotid arteries with minimal atherosclerotic changes at the left carotid bulb with no significant stenosis, normal vertebral arteries, hypoplastic A1 segment of the left anterior cerebral artery, A2 segment supplied by the patent anterior communicating artery, hypoplastic P1 segment of the left posterior cerebral artery, posterior artery supplied by the patent posterior communicating artery with no evidence of any aneurysm or large vessel occlusion, EKG with sinus tach cardia with no acute evidence of ischemia with mild nonspecific changes. In the ED patient initiated on maintenance IV fluids and initiated on the tenecteplase administration tract with stroke alert. In the ED upon hospitalist evaluation patient had significant improvement of symptoms with resolution of vision changes, vertiginous symptoms abated, paresthesias resolved and left-sided weakness significantly improved although still did have left-sided mild ataxia on finger-nose and [id number] evaluation. [facility] Medical History (Updated 12/16/22 @ 20:[address] Kitty Brooks MD) Anxiety and depression Arthritis Asthma BMI 36.0-36.9,adult Diabetes Hemorrhoids Herpes simplex vulvovaginitis History of blood clots History of PSVT (paroxysmal supraventricular tachycardia) Hyperlipidemia Lichen sclerosus Obesity Sarcoidosis Sleep apnea Spleen anomaly Splenomegaly Vulvar dermatitis Home Medications paroxetine HCl 20 mg tablet (Paxil) 20 mg PO BID DEPRESSION 04/03/16 [History Last Taken 10/28/20] verapamil 80 mg tablet 80 mg PO BID HEART 04/03/16 [History Last Taken 10/28/20] cranberry fruit concentrate 250 mg chewable tablet (Azo Cranberry) 250 mg PO TID supplement 06/05/19 [History Last Taken 10/28/20] metformin 500 mg tablet 500 mg PO BID blood sugar 06/05/19 [History Last Taken 10/28/20] naproxen 500 mg tablet 500 mg PO BID pain 06/05/19 [History Last Taken 10/28/20] gabapentin 400 mg capsule 400 mg PO BID nerve pain 10/29/20 [History Last Taken 10/28/20] clorazepate dipotassium 7.5 mg tablet (Tranxene T-Tab) 7.5 mg PO BID PRN Anxiety 09/09/21 [History Last Taken Unknown] fluticasone propionate 50 mcg/actuation nasal spray,suspension (Flonase Allergy Relief) 1 spray intranasal DAILY 09/09/21 [History Last Taken Unknown] rosuvastatin 5 mg tablet (Crestor) 5 mg PO DAILY cholesterol 09/09/21 [History Last Taken Unknown] diazepam 5 mg tablet 5 mg PO Q8 PRN Muscle Spasm #12 tabs 05/03/22 [Rx Last Taken Unknown] clobetasol 0.05 % topical cream 1 applic topical DAILY 12/16/22 [History Last Taken Unknown] Allergy/AdvReac Type Severity Reaction Status Date / Time lidocaine Allergy Intermediate tachycardia Verified 12/16/22 18:27 Penicillins Allergy Hives Verified 12/16/22 18:27 atorvastatin AdvReac Pain in Verified 12/16/22 18:27 joints hydrocodone bitartrate AdvReac Vomiting Verified 12/16/22 18:27 [From Vicodin] oxycodone HCl [From Percocet] AdvReac Vomiting Verified 12/16/22 18:27 Family History (Updated 12/16/22 @ 20:[address] 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 HEENT: Sudden onset right vision deficits Eyes: No visual loss, blurred vision, double vision or yellow sclerae. Ears, Nose, Throat: No hearing loss, sneezing, congestion, runny nose or sore throat. SKIN: No rash or itching, lesions, wounds. CARDIOVASCULAR: No chest pain, chest pressure or chest discomfort, palpitations, edema, orthopnea, syncopal events. RESPIRATORY: No shortness of breath, cough or sputum, wheezing, hemoptysis. GASTROINTESTINAL: No anorexia, nausea, vomiting or diarrhea, abdominal pain, melena, BRBPR. GENITOURINARY: No dysuria, frequency, urgency or retention. NEUROLOGICAL: + Right eye vision deficits, difficulty with balance, left lower extremity ataxia, left-sided mild weakness and paresthesias, dizziness/vertigo. No headachesyncope, paralysis, change in bowel or bladder control, seizure. MUSCULOSKELETAL: + muscle, back pain, joint pain or stiffness. HEMATOLOGIC: No anemia, bleeding or bruising. LYMPHATICS: No enlarged nodes. + history of splenectomy. PSYCHIATRIC: + history of depression or anxiety. ENDOCRINOLOGIC: No reports of sweating, cold or heat intolerance. No polyuria or polydipsia. ALLERGIES: + history of asthma, rhinitis. Vital Signs Vital Signs Vital Signs: 12/16/22 18:25 12/16/22 18:49 12/16/22 18:49 Temperature 97.4 F L 98.3 F Temperature Source Temporal Temporal Pulse Rate 96 98 Respiratory Rate 18 16 Blood Pressure 137/75 H 142/84 H Blood Pressure Mean 95 103 Pulse Ox 96 94 Oxygen Delivery Method Room Air Room Air Room Air 12/16/22 19:00 12/16/22 19:21 12/16/22 19:30 Temperature 97.7 F L Temperature Source Oral Pulse Rate 92 96 Respiratory Rate 15 17 Blood Pressure 142/84 H 152/85 H 142/94 H Blood Pressure Mean 103 110 Pulse Ox 98 94 Oxygen Delivery Method Room Air Room Air Weight Weight: 187 lb 2.759 oz Body Mass Index (BMI) 35.3 Physical Exam Narrative Physical Examination: General: Awake, alert, oriented x 3 and cooperative, seated upright in the ED bed, anxious, fatigued, significantly improving status post tenecteplase administration. Skin: Normal color, normal turgor, no icterus, no cyanosis. HEENT: AT/NC, EOMI, PERRLA, MMM, no carotid bruits or JVD noted, complete resolution of prior visual deficits specifically to the right upper outer quadrant. Lungs: CTA bilaterally, moderate effort, mild decrease BL bases, no rales, ronchi or wheezing. Heart: Currently regular rate and rhythm; no gallop, rub audible. Abdomen: Soft, obese, NTTP, ND, normal BS, no HSM. Extremities: No cyanosis, clubbing, or edema. Neurological: Patient awake, alert, oriented as noted, cognitive function intact; pupils equally reactive to light and accommodation, all trotter of vision currently intact, cranial nerves II-XII grossly normal, moving all 4 extremities, sensation has returned to normal, no focal deficits, strength preserved, mild noted left upper extremity and lower extremity ataxia but extremely improved from initial, equivocal Babinski. Psychiatric: Affect appears anxious but calms with discussion, no acute evidence of depressive feelings but does have underlying anxiety and depressive history. Results Lab / Micro Data Result Diagrams: 12/16/22 18:35 12/16/22 18:35 Labs: Laboratory Results - last 24 hr 12/16/22 18:35: WBC 11.5 H, RBC 4.85, Hgb 14.7, Hct 45.4, MCV 93.6, MCH 30.3, MCHC 32.4, RDW Std Deviation 53.9 H, RDW Coeff of Kadi 15.6 H, Plt Count 421, MPV 10.5, Immature Gran % (Auto) 0.300, Neut % (Auto) 47.8, Lymph % (Auto) 37.0, Hettinger % (Auto) 12.3 H, Eos % (Auto) 2.2, Baso % (Auto) 0.4, Absolute Neuts (auto) 5.5, Absolute Lymphs (auto) 4.24, Nucleated RBC % 0 12/16/22 18:35: PT 13.0, INR 1.0, APTT 24.5 12/16/22 18:35: Sodium 136, Potassium 3.8, Chloride 104, Carbon Dioxide 23.0, Anion Gap 9, BUN 17, Creatinine 1.01, Estim Creat Clear Calc 36.32, Est GFR (MDRD) Af Amer 69, Est GFR (MDRD) Non-Af 57 L, BUN/Creatinine Ratio 16.8, Glucose 159 H, Calcium 9.8, Troponin I High Sens 5 12/16/22 18:47: POC Glucose 141 H Radiology Impression Brain CT 12/16/22 18:31 IMPRESSION: No acute intracranial or calvarial abnormality. Electronically Signed: Jj Puente DO at 18:54 EDT Reading Location ID and State: [address] [place] [address] Tel [phone], Service support , ADDENDUM: 12/16/22 1914 IMPRESSION: No acute intracranial or calvarial abnormality. N.B. : The above Results were Read Back by Jj Puente DO to Alejandro Chaudhari MD, and understanding confirmed on 12/16/2022 19:07:51 (ET). Electronically Signed: Jj Puente DO at 18:54 EDT Reading Location ID and State: [address] [place] [address] Tel [phone], Service support , Head/Neck CTA 12/16/22 18:32 IMPRESSION: 1. Tortuous carotid arteries was minimal atherosclerotic changes at the left carotid bulb. There is no significant stenosis. 2. Normal vertebral arteries. 3. 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 The A2 segment is supplied via the patent anterior communicating artery. 4. Hypoplastic P1 segment of the left posterior cerebral artery. The posterior artery is supplied via the patent posterior communicating artery. 5. No evidence of aneurysm or large vessel occlusion. Electronically Signed: Jj Puente DO at 19:06 EDT Reading Location ID and State: [facility] / [place] Tel [phone], Service support , ADDENDUM: 12/16/22 1915 IMPRESSION: 1. Tortuous carotid arteries was minimal atherosclerotic changes at the left carotid bulb. There is no significant stenosis. 2. Normal vertebral arteries. 3. 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 The A2 segment is supplied via the patent anterior communicating artery. 4. Hypoplastic P1 segment of the left posterior cerebral artery. The posterior artery is supplied via the patent posterior communicating artery. 5. No evidence of aneurysm or large vessel occlusion. N.B. : The above Results were Read Back by Jj Puente DO to Alejandro Chaudhari MD, and understanding confirmed on 12/16/2022 19:09:13 (ET). 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 #1. 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 Will consult Neurology for evaluation. Goal currently for BP less than 185/105 prior to administration tenecteplase in the ED with plans for postthrombolytic protocol, will attempt to transition to at least moderate dose statin w/ AM FLP, fall precautions. Magnesium, TSH, FLP, hemoglobin A1c requested. May have meclizine for symptoms as needed. We will plan on requesting neurology SOC consultation once MRI of the brain and further work-up is obtained at the 24-hour heather. #2. Diabetes mellitus type II with chronic neuropathy: Hold oral home regimen, continue home insulin regimen, ADA diet, accu checks w/ ISS, hemoglobin A1c requested given acute presentation, nutrition consultation for education and teach, continue patient home chronic gabapentin regimen. #3. Hypertension: As noted we will follow post tenecteplase order set with as needed agents per stroke protocol as needed with resumption of hypertensive regimen once appropriate. #4. Hyperlipidemia: Will attempt to change to moderate dose statin therapy given acute presentation as noted but does have history of joint pain with statin therapies, FLP in a.m. #5. History sarcoidosis: Unclear exact involvement, encourage continued outpatient follow-up and assessment. #6. History PSVT: Given acute presentation as noted temporarily holding patient on verapamil, will maintain on telemetry monitoring. #7. Anxiety and depression: We will continue patient home Paxil as well as clorazepate as needed regimen. #8. History of VTE: Patient is not chronically anticoagulated per current list, recent tenecteplase administration as noted, holding on chemoprophylaxis given this. #9. History splenomegaly: Patient status post prior splenectomy. #10. Allergic rhinitis: We will continue patient home fluticasone regimen. #11. Obesity: Weight loss and lifestyle changes encouraged, nutrition consulted per stroke admission protocol. #12. Asthma: Does have budesonide listed on home regimen however she states she does not use this, will have as needed albuterol, encourage head of bed and I-S. #13. ELISHA: CPAP nightly. #14. DVT prophylaxis: SCDs. #15. CODE status: Patient HCPOA is her daughter and her granddaughter and living will is currently in place but she notes that some items need to be updated. Discussed CODE status at length including difference between FULL code, DNR-CCA and DNR-CC status. Following discussions about the differences in these status, requested Full Code status. Advanced Care Planning Face to Face Time: 16 minutes. Admission Evaluation Time spent evaluating chart, patient history, patient evaluation, care planning and discussion with specialists: 75 minutes. Charges/Coding Visit Charges Inpatient E&M: 29903 Init Hosp L3 Procedures Hospitalists Procedures: 15848 Advncd Care Plan 30 Min
--- NOTE | 2022-12-16 20:51 | ECHOD_ITS ---
Reason For Study: TIA/CVA Procedure This was a 2D Doppler, Color Flow transthoracic echocardiogram. Exam performed portable in ICU/CCU. Left Ventricle Normal size and thickness. The left ventricular ejection fraction is 65 %. Diastolic function is indeterminate. Right Ventricle Normal right ventricle. Atria The left atrium is severely enlarged. Normal right atrium. Bubble contrast study negative for right to left interatrial shunt. Mitral Valve Mild focal mitral valve calcification. Tricuspid Valve Trivial tricuspid valve insufficiency. Normal pulmonary artery pressure. Aortic Valve Mild (1+) aortic valve insufficiency. Pulmonic Valve The pulmonic valve is not well visualized. Great Vessels Mildly dilated aortic root. Pericardium/Pleural No pericardial effusion. Medication Performed a rapid injection of agitated mix of 9 cc saline and 1cc air to assess for atrial septal defect. MMode/2D Measurements & Calculations LVIDd: 4.5 cm IVSd: 1.0 cm Ao root diam: 4.1 cm LVIDs: 3.1 cm LVPWd: 1.0 cm RVDd: 2.6 cm FS: 31.0 % LAV(MOD-bp): 51.4 ml EDV(MOD-sp4): 53.8 ml EDV(MOD-sp2): 33.0 ml LAV(MOD-bp) Indexed: 28.8 ml/m2 ESV(MOD-sp4): 16.0 ml ESV(MOD-sp2): 13.9 ml LAV(MOD-sp2): 48.9 ml EF(MOD-sp4): 70.2 % EF(MOD-sp2): 57.8 % LAV(MOD-sp4): 49.2 ml SV(MOD-sp4): 37.7 ml SV(MOD-sp2): 19.1 ml LA A4 area: 19.5 cm2 LA dimension(2D): 4.5 cm RA A4 area: 16.6 cm2 Time Measurements MV dec time: 0.22 sec Doppler Measurements & Calculations MV E max tirso: 73.6 cm/sec Lat Peak E' Tirso: 8.5 cm/sec Med Peak E' Tirso: 6.8 cm/sec MV A max tirso: 104.4 cm/sec E/E' lat: 8.7 E/E' med: 10.8 MV E/A: 0.71 Ao V2 max: 111.9 cm/sec AI max tirso: 322.4 cm/sec MV dec slope: 336.8 cm/sec2 Ao max P.0 mmHg AI max P.6 mmHg Ao V2 mean: 82.3 cm/sec Ao mean P.0 mmHg AI dec slope: 159.1 cm/sec2 Ao V2 VTI: 28.3 cm AI P1/2t: 593.5 msec AV (velocity ratio): 0.87 LV V1 max: 105.2 cm/sec PA V2 max: 82.2 cm/sec TR max tirso: 266.1 cm/sec LV V1 max P.4 mmHg TR max P.3 mmHg LV V1 mean P.4 mmHg LV V1 mean: 72.5 cm/sec LV V1 VTI: 24.5 cm ECHO/Echo Complete Interpretation Summary The left ventricular ejection fraction is 65 %. Diastolic function is indeterminate. The left atrium is severely enlarged. Mild focal mitral valve calcification. Mild (1+) aortic valve insufficiency. Mildly dilated aortic root. Ordering Physician: Kitty Brokos Referring Physician: Edda Ruano Performed By: Dede Melissa, JEAN, RVT
[2022-12-16] MEDS: CLARIFY ORDER 1 EACH NOTE (21:41)
[2022-12-16] MEDS: Paroxetine 20 MG Tablet PO (21:45)
[2022-12-16] MEDS: Gabapentin 400 MG Capsule PO (21:45)
[2022-12-16 22:35] LABS: Bedside Glucose 80 mg/dL (74-106)
--- NOTE | 2022-12-16 23:02 | CPS ---
Pt having home CPAP unit delivered in AM
[2022-12-17] VITALS (29 sets, daily range): BP systolic 105–159; BP diastolic 51–79; PULSE 74–91; RESP 12–28; TEMP 36.6–37.6; O2SAT 92–98; BMI 34.3; BMI 34.5
[2022-12-17] MEDS: 0.9% Normal Saline 1,000 ML 500 ML IV (02:08)
[2022-12-17 04:01] LABS: Absolute Lymphocyte Count 3.74 X10^3/uL (0.83-4.51); Absolute Neutrophil Count 4.2 X10^3/uL (2.0-7.7); Basophil# 0.02 X10^3/uL; Basophil% 0.2 % (0-1); Eosinophil# 0.29 X10^3/uL; Hematocrit 41.4 % (37-47); Hemoglobin 13.2 g/dL (12.0-15.0); Lymphocyte # 3.74 X10^3/ul (0.83-4.51); Lymphocyte % 38.8 % (19-41); Mean Corp Hgb Conc 31.9 g/dL (32-36); Mean Corpuscular Hgb 30.1 pg (27.0-32.0); Mean Corpuscular Volume 94.5 fL (81-99); Mean Platelet Vol. 11.3 fl (6.2-12.0); Monocyte# 1.35 X10^3/uL; NRBC Flagged by Analyzer 0 % (0-5); Neutrophil # 4.23 X10^3/uL (2.7-7.7); Neutrophil % 43.8 % (47-70); POSITIVE COUNT YES; Platelet Count 235 K/mm3 (150-450); RBC Distribution Width CV 15.7 % (11.6-14.6); RBC Distribution Width SD 53.9 fl (35.1-43.9); Red Blood Count 4.38 M/mm3 (4.2-5.4); White Blood Count 9.7 K/mm3 (4.4-11.0)
[2022-12-17 04:09] LABS: Differential Indicated SCAN CRITERIA MET
[2022-12-17 04:39] LABS: ALB/GLOB Ratio 0.9 RATIO (0.9-2.4); AST(SGOT) 31 U/L (15-37); Alanine Aminotransfer ALT/SGPT 25 U/L (13-56); Alkaline Phosphatase 69 U/L (45-117); Anion Gap 8 (5-15); BUN 13 mg/dL (7-18); Calcium,Total 8.4 mg/dL (8.5-10.1); Chloride 108 mmol/L (98-107); Cholesterol 133 mg/dL (200); Creatinine, Serum 0.81 mg/dL (0.55-1.02); EST Glomerular Filtration Rate 73 mL/min (>60); Est Glom Filt Rate - Afr Amer 88 mL/min (>60); Globulin 3.5 g/dL (2.2-4.2); Glucose 106 mg/dL (74-106); High Density Lipoprotein 39 mg/dL; Potassium 4.4 mmol/L (3.5-5.1); Protein, Total 6.5 g/dL (6.4-8.2); Sodium Level 142 mmol/L (136-145); Thyroid Stim Hormone (TSH) 2.52 uIU/mL (0.358-3.74); Triglycerides 172 mg/dL; Very Low Density Lipoprotein 34 mg/dL (5-40)
[2022-12-17 06:40] LABS: Differential Comment SCANNED; Platelet Estimate ADEQUATE (ADEQ)
[2022-12-17] MEDS: 0.9% Normal Saline 1,000 ML 100 ML IV (07:16)
--- NOTE | 2022-12-17 07:44 | PCM.PN.HOSP ---
Reason for Visit Reason for Visit: Diagnoses Cerebral infarction due to unspecified occlusion or stenosis of left posterior cerebral artery (12/16/22) Subjective Subjective Follow-up for ischemic stroke after tenecteplase. Objective Data Objective Data Vital Signs: Vital Signs Temp Pulse Resp BP Pulse Ox O2 Del Method 98.2 F 78 14 134/68 H 96 Room Air 12/17/22 07:00 12/17/22 07:00 12/17/22 07:00 12/17/22 07:00 12/17/22 07:00 12/17/22 07:00 Oxygen Delivery Method Room Air Weight: 176 lb 12.972 oz Body Mass Index (BMI) 34.5 Intake & Output: Intake and Output for Last 24 Hours 12/15/22 12/16/22 12/17/22 23:59 23:59 23:59 Intake Total 3326.66 / 3326.66 Output Total 1900 / 1900 Balance 1426.66 / 1426.66 Lab / Micro Data Result Diagrams: 12/17/22 03:40 12/17/22 03:40 Labs: Laboratory Results - last 24 hr 12/16/22 18:35: WBC 11.5 H, RBC 4.85, Hgb 14.7, Hct 45.4, MCV 93.6, MCH 30.3, MCHC 32.4, RDW Std Deviation 53.9 H, RDW Coeff of Kadi 15.6 H, Plt Count 421, MPV 10.5, Immature Gran % (Auto) 0.300, Neut % (Auto) 47.8, Lymph % (Auto) 37.0, Lumpkin % (Auto) 12.3 H, Eos % (Auto) 2.2, Baso % (Auto) 0.4, Absolute Neuts (auto) 5.5, Absolute Lymphs (auto) 4.24, Nucleated RBC % 0 12/16/22 18:35: PT 13.0, INR 1.0, APTT 24.5 12/16/22 18:35: Sodium 136, Potassium 3.8, Chloride 104, Carbon Dioxide 23.0, Anion Gap 9, BUN 17, Creatinine 1.01, Estim Creat Clear Calc 36.32, Est GFR (MDRD) Af Amer 69, Est GFR (MDRD) Non-Af 57 L, BUN/Creatinine Ratio 16.8, Glucose 159 H, Calcium 9.8, Troponin I High Sens 5 12/16/22 18:35: Magnesium 2.0 12/16/22 18:47: POC Glucose 141 H 12/16/22 21:51: POC Glucose 80 12/17/22 03:40: WBC 9.7, RBC 4.38, Hgb 13.2, Hct 41.4, MCV 94.5, MCH 30.1, MCHC 31.9 L, RDW Std Deviation 53.9 H, RDW Coeff of Kadi 15.7 H, Plt Count 235, MPV 11.3, Immature Gran % (Auto) 0.200, Neut % (Auto) 43.8 L, Lymph % (Auto) 38.8, Lumpkin % (Auto) 14.0 H, Eos % (Auto) 3.0, Baso % (Auto) 0.2, Absolute Neuts (auto) 4.2, Absolute Lymphs (auto) 3.74, Nucleated RBC % 0, Differential Comment SCANNED, Platelet Estimate ADEQUATE 12/17/22 03:40: Sodium 142, Potassium 4.4, Chloride 108 H, Carbon Dioxide 26.0, Anion Gap 8, BUN 13, Creatinine 0.81, Estim Creat Clear Calc 43.10, Est GFR (MDRD) Af Amer 88, Est GFR (MDRD) Non-Af 73, BUN/Creatinine Ratio 16.0, Glucose 106, Calcium 8.4 L, Total Bilirubin 0.30, AST 31, ALT 25, Alkaline Phosphatase 69, Total Protein 6.5, Albumin 3.0 L, Globulin 3.5, Albumin/Globulin Ratio 0.9, Triglycerides 172, Cholesterol 133, LDL Cholesterol 60, VLDL Cholesterol 34, HDL Cholesterol 39 L, TSH 2.52 Radiography Diagnostic Testing: Radiology Impression Brain CT 12/16/22 18:31 IMPRESSION: No acute intracranial or calvarial abnormality. Electronically Signed: Jj Puente DO at 18:54 EDT Reading Location ID and State: [facility] / [place] Tel [phone], Service support , ADDENDUM: 12/16/221913 IMPRESSION: No acute intracranial or calvarial abnormality. N.B. : The above Results were Read Back by Jj Puente DO to Alejandro Chaudhari MD, and understanding confirmed on 12/16/2022 19:07:51 (ET). Electronically Signed: Jj Puente DO at 18:54 EDT Reading Location ID and State: [facility] / [place] Tel [phone], Service support , Head/Neck CTA 12/16/22 18:32 IMPRESSION: 1. Tortuous carotid arteries was minimal atherosclerotic changes at the left carotid bulb. There is no significant stenosis. 2. Normal vertebral arteries. 3. 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 The A2 segment is supplied via the patent anterior communicating artery. 4. Hypoplastic P1 segment of the left posterior cerebral artery. The posterior artery is supplied via the patent posterior communicating artery. 5. No evidence of aneurysm or large vessel occlusion. Chest X-Ray 12/16/22 19:25 IMPRESSION: Degenerative changes, as described above. No demonstrated acute cardiopulmonary process. No major interval change. Electronically Signed: Jj Puente DO at 19:51 EDT Reading Location ID and State: [address] [place] [address] Tel [phone], Service support , Physical Exam Narrative Patient was admitted yesterday with left blurry vision, weakness on the left lower and upper extremity, off balance. Patient could not see clearly. Patient had tenecteplase. Feels improvement in the strength of her left upper and lower extremity and vision. Physical exam General: Alert, Oriented x3, Cooperative HEENT: Mild blurry on the left visual field. Left upper and lower quadranropia. Atraumatic, PERRLA, EOMI, Normocephalic Oral: Oral mucosa moist. No Gingival or Mucosal Lesions/ Ulcerations Neck: Supple, No JVD, Negative Carotid Bruits Lungs: Air entry diminished in bilateral lung bases. No crepitation/rhonchi Cardiovascular: Sinus rhythm. Regular rate, Regular Rhythm, Normal S1, Normal S2, No murmurs Abdomen: Bowel Sounds Present, Soft, Non Tender, Non-Distended : No renal angle tenderness. No suprapubic tenderness. Extremities: No edema, Capillary Refill Less than 3 Seconds Skin: No rashes, No breakdown Musculoskeletal: No Tenderness to Palpation of Joints or Extremities Neurological: Muscle strength 5/5 in left upper extremity, 4+/5 left lower extremity. No dysmetria. [id number] and finger-nose test are negative. No extension. NIH stroke scale 1 For partial hemianopia. Psych/Mental Status: Normal Affect, Appropriate. 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 Patient denies any trouble with speech or swallowing. #1. Left homonymous superior quadrantanopia, left sided mild weakness/numbness, suggestive of ischemic stroke: CT head no acute abnormality. CTA head and neck ruled out LVO. Patient is being admitted in ICU after given tenecteplase. NIH stroke scale monitoring, BP 180/105 and with and glucose monitoring as per guidelines. Serum magnesium 2.0. Troponin normal. Fasting lipid profile LDL 60 HDL 39. TSH normal. MRI scheduled for evening 6 PM. 2D echo is done. After that SOC consult #2. Diabetes mellitus type II with chronic neuropathy: A1c 6.4, glucose well controlled. #3. Hypertension: As noted we will follow post tenecteplase order set with as needed agents per stroke protocol as needed with resumption of hypertensive regimen once appropriate. #4. Hyperlipidemia: attempt to change to moderate dose statin therapy given acute presentation as noted but does have history of joint pain with statin therapies #5. History sarcoidosis: Unclear exact involvement, encourage continued outpatient follow-up and assessment. #6. History PSVT: Given acute presentation as noted temporarily holding patient on verapamil, will maintain on telemetry monitoring. #7. Anxiety and depression: continue patient home Paxil as well as clorazepate as needed regimen. #8. History of VTE: Patient is not chronically anticoagulated per current list, recent tenecteplase administration as noted, holding on chemoprophylaxis given this. #9. History splenomegaly: Patient status post prior splenectomy. #10. Allergic rhinitis: We will continue patient home fluticasone regimen. #11. Obesity: Weight loss and lifestyle changes encouraged, nutrition consulted per stroke admission protocol. #12. Asthma: Does have budesonide listed on home regimen however she states she does not use this, will have as needed albuterol, encourage head of bed and I-S. #13. ELISHA: CPAP nightly. #14. DVT prophylaxis: SCDs. #15. CODE status: Patient SANDOVAL is her daughter and her granddaughter and living will is currently in place but she notes that some items need to be updated. Discussed CODE status at length including difference between FULL code, DNR-CCA and DNR-CC status. Following discussions about the differences in these status, requested Full Code status. Charges/Coding Visit Charges Inpatient E&M: 15650 Subs Hosp L3
--- NOTE | 2022-12-17 07:47 | CON.PCM.CC_ITS ---
Assessment & Plan Assessment/Plan (1) Acute CVA (cerebrovascular accident): PLAN: Plan RECOMMENDATIONS: 1. Follow-up head imaging, per protocol this evening. 2. Brain MRI tomorrow. 3. PT/OT evaluations tomorrow. 4. Maintain blood pressure less than 180/105 mmHg. 5. Encourage incentive spirometer use while in bed. IMPRESSIONS: 1. Acute CVA status post tenecteplase The patient initially presented to the hospital with dizziness and diplopia. She was evaluated by neurology and felt to be a candidate for thrombolytic therapy. The patient has noted improvement in her symptoms since receiving the aforementioned therapy. Her last NIH score was noted to be 0. Plan for follow- up head imaging at 24 hours. Brain MRI can be completed tomorrow. Echocardiogram is pending. PT/OT evaluations tomorrow. 2. History of diabetes mellitus/hypertension/hyperlipidemia/obesity Complicates care, management, recovery and prognosis. Continue home medications as indicated. This note was generated with [email or web address] dictation software. It may contain incorrect words, spelling, and punctuation that were not noted in checking the note before signing. HPI Consult Data Date of Consult: 12/17/22 HPI Narrative Reason for Consultation: Acute CVA status post tenecteplase HPI Narrative: The patient is a 77-year-old female, with a history as outlined below, who presented to the emergency department via EMS on December 16 with dizziness and di plopia. The patient has a history of diabetes mellitus, hypertension, hyperlipidemia and obesity. She denied a history of CVA. On presentation to the emergency department, the patient was noted to be afebrile hemodynamically stable. She was maintaining appropriate oxygen saturations on room air. Laboratory evaluation revealed a white blood cell count of 11,000. Coagulation profile was unremarkable. Chemistry profile was unrevealing. CT head was unremarkable. CTA head and neck showed no evidence of a large vessel occlusion. The patient was evaluated by neurology and felt to be a candidate for tenecteplase. Full thrombolytic therapy, the patient was admitted to the medical intensive care unit per protocol. Overnight, no issues were identified by the ICU nursing staff. NIH score earlier this morning was noted to be 0. The patient is resting comfortably in bed without any specific complaints. [facility] Medical History (Updated 12/17/22 @ 07:[address] Shahbaz Elliott, DO) Anxiety and depression Arthritis Asthma BMI 36.0-36.9,adult Diabetes Hemorrhoids Herpes simplex vulvovaginitis History of blood clots History of PSVT (paroxysmal supraventricular tachycardia) Hyperlipidemia Lichen sclerosus Obesity Sarcoidosis Sleep apnea Spleen anomaly Splenomegaly Vulvar dermatitis Home Medications paroxetine HCl 20 mg tablet (Paxil) 20 mg PO BID DEPRESSION 04/03/16 [History Last Taken 10/28/20] verapamil 80 mg tablet 80 mg PO BID HEART 04/03/16 [History Last Taken 10/28/20] cranberry fruit concentrate 250 mg chewable tablet (Azo Cranberry) 250 mg PO TID supplement 06/05/19 [History Last Taken 10/28/20] metformin 500 mg tablet 500 mg PO BID blood sugar 06/05/19 [History Last Taken 10/28/20] naproxen 500 mg tablet 500 mg PO BID pain 06/05/19 [History Last Taken 10/28/20] gabapentin 400 mg capsule 400 mg PO BID nerve pain 10/29/20 [History Last Taken 10/28/20] clorazepate dipotassium 7.5 mg tablet (Tranxene T-Tab) 7.5 mg PO BID PRN Anxiety 09/09/21 [History Last Taken Unknown] fluticasone propionate 50 mcg/actuation nasal spray,suspension (Flonase Allergy Relief) 1 spray intranasal DAILY 09/09/21 [History Last Taken Unknown] rosuvastatin 5 mg tablet (Crestor) 5 mg PO DAILY cholesterol 09/09/21 [History Last Taken Unknown] diazepam 5 mg tablet 5 mg PO Q8 PRN Muscle Spasm #12 tabs 05/03/22 [Rx Last Taken Unknown] clobetasol 0.05 % topical cream 1 applic topical DAILY 12/16/22 [History Last Taken Unknown] Allergy/AdvReac Type Severity Reaction Status Date / Time lidocaine Allergy Intermediate tachycardia Verified 12/16/22 18:27 Penicillins Allergy Hives Verified 12/16/22 18:27 atorvastatin AdvReac Pain in Verified 12/16/22 18:27 joints hydrocodone bitartrate AdvReac Vomiting Verified 12/16/22 18:27 [From Vicodin] oxycodone HCl [From Percocet] AdvReac Vomiting Verified 12/16/22 18:27 Family History (Updated 12/16/22 @ 20:[address] 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 Physical Exam Const alert, oriented x3 and no apparent distress General Appearance: cooperative HEENT normocephalic, head/scalp atraumatic and moist oral mucous membranes Eyes PERRL, EOMs intact bilaterally and conjunctivae normal Neck supple General: trachea midline Chest inspection of chest normal Resp normal respiratory effort Auscultation: Negative for rales, rhonchi or wheezes Cardio regular rate and regular rhythm GI normal to inspection, nondistended, normoactive bowel sounds Extremity no clubbing, cyanosis or edema Skin no rashes or lesions noted Neuro CN's II-XII intact bilaterally and no focal motor deficits Psych cooperative and affect normal Lab / Micro Data Result Diagrams: 12/17/22 03:40 12/17/22 03:40 Labs: Laboratory Results - last 24 hr 12/16/22 18:35: WBC 11.5 H, RBC 4.85, Hgb 14.7, Hct 45.4, MCV 93.6, MCH 30.3, MCHC 32.4, RDW Std Deviation 53.9 H, RDW Coeff of Kadi 15.6 H, Plt Count 421, MPV 10.5, Immature Gran % (Auto) 0.300, Neut % (Auto) 47.8, Lymph % (Auto) 37.0, Rankin % (Auto) 12.3 H, Eos % (Auto) 2.2, Baso % (Auto) 0.4, Absolute Neuts (auto) 5.5, Absolute Lymphs (auto) 4.24, Nucleated RBC % 0 12/16/22 18:35: PT 13.0, INR 1.0, APTT 24.5 12/16/22 18:35: Sodium 136, Potassium 3.8, Chloride 104, Carbon Dioxide 23.0, Anion Gap 9, BUN 17, Creatinine 1.01, Estim Creat Clear Calc 36.32, Est GFR (MDRD) Af Amer 69, Est GFR (MDRD) Non-Af 57 L, BUN/Creatinine Ratio 16.8, Glucose 159 H, Calcium 9.8, Troponin I High Sens 5 12/16/22 18:35: Magnesium 2.0 12/16/22 18:47: POC Glucose 141 H 12/16/22 21:51: POC Glucose 80 12/17/22 03:40: WBC 9.7, RBC 4.38, Hgb 13.2, Hct 41.4, MCV 94.5, MCH 30.1, MCHC 31.9 L, RDW Std Deviation 53.9 H, RDW Coeff of Kadi 15.7 H, Plt Count 235, MPV 11.3, Immature Gran % (Auto) 0.200, Neut % (Auto) 43.8 L, Lymph % (Auto) 38.8, Rankin % (Auto) 14.0 H, Eos % (Auto) 3.0, Baso % (Auto) 0.2, Absolute Neuts (auto) 4.2, Absolute Lymphs (auto) 3.74, Nucleated RBC % 0, Differential Comment SCANN ED, Platelet Estimate ADEQUATE 12/17/22 03:40: Sodium 142, Potassium 4.4, Chloride 108 H, Carbon Dioxide 26.0, Anion Gap 8, BUN 13, Creatinine 0.81, Estim Creat Clear Calc 43.10, Est GFR (MDRD) Af Amer 88, Est GFR (MDRD) Non-Af 73, BUN/Creatinine Ratio 16.0, Glucose 106, Calcium 8.4 L, Total Bilirubin 0.30, AST 31, ALT 25, Alkaline Phosphatase 69, Total Protein 6.5, Albumin 3.0 L, Globulin 3.5, Albumin/Globulin Ratio 0.9, Triglycerides 172, Cholesterol 133, LDL Cholesterol 60, VLDL Cholesterol 34, HDL Cholesterol 39 L, TSH 2.[address] 12/16/22 18:31 IMPRESSION: No acute intracranial or calvarial abnormality. Electronically Signed: Jj Puente DO at 18:54 EDT Reading Location ID and State: [address] [place] [address] Tel [phone], Service support , ADDENDUM: 12/16/221913 IMPRESSION: No acute intracranial or calvarial abnormality. N.B. : The above Results were Read Back by Jj Puente DO to Alejandro Chaudhari MD, and understanding confirmed on 12/16/2022 19:07:51 (ET). Electronically Signed: Jj Puente DO at 18:54 EDT Reading Location ID and State: [facility] / [place] Tel [phone], Service support , Head/Neck CTA 12/16/22 18:32 IMPRESSION: 1. Tortuous carotid arteries was minimal atherosclerotic changes at the left carotid bulb. There is no significant stenosis. 2. Normal vertebral arteries. 3. 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 The A2 segment is supplied via the patent anterior communicating artery. 4. Hypoplastic P1 segment of the left posterior cerebral artery. The posterior artery is supplied via the patent posterior communicating artery. 5. No evidence of aneurysm or large vessel occlusion. Electronically Signed: Jj Puente DO at 19:06 EDT Reading Location ID and State: [employer] / [place] Tel [phone], Service support , ADDENDUM: 12/16/221914 IMPRESSION: 1. Tortuous carotid arteries was minimal atherosclerotic changes at the left carotid bulb. There is no significant stenosis. 2. Normal vertebral arteries. 3. 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 The A2 segment is supplied via the patent anterior communicating artery. 4. Hypoplastic P1 segment of the left posterior cerebral artery. The posterior artery is supplied via the patent posterior communicating artery. 5. No evidence of aneurysm or large vessel occlusion. N.B. : The above Results were Read Back by Jj Puente DO to Alejandro Chaudhari MD, and understanding confirmed on 12/16/2022 19:09:13 (ET). Electronically Signed: Jj Puente DO at 19:06 EDT Reading Location ID and State: [facility] / [place] Tel [phone], Service support , Chest X-Ray 12/16/22 19:25 IMPRESSION: Degenerative changes, as described above. No demonstrated acute cardiopulmonary process. No major interval change. Electronically Signed: Jj Puente DO at 19:51 EDT Reading Location ID and State: [address] [place] [address] Tel [phone], Service support , Charges/Coding Visit Charges Inpatient E&M: 51997 Init Hosp L3
[2022-12-17 07:59] LABS: Hemoglobin A1c 6.4 % (3.8-5.6)
[2022-12-17 08:30] LABS: Bedside Glucose 95 mg/dL (74-106)
[2022-12-17] MEDS: Gabapentin 400 MG Capsule PO ×2 (09:44→22:04)
[2022-12-17] MEDS: Fluticasone 0.05% 1 SPRAY NASAL.SRY NASAL (09:44)
[2022-12-17] MEDS: Paroxetine 20 MG Tablet PO ×2 (09:45→22:04)
--- NOTE | 2022-12-17 10:47 | CASEMGMT ---
Social Work SW met w/pt, PHQ-9 completed. Pt scored a 4. Pt does have some depression and anxiety at her baseline, takes Paxil. She has been in counseling in the past and found it helpful, may be interested in going back to counseling at some point. SW provided to pt a list of counseling resources in the area. No other resources needed at this time in regard to mental health. ROJELIO Perez
--- NOTE | 2022-12-17 10:50 | CASEMGMT ---
Social Work Pt does not have LW/POA on file, may want to update while here. SW will check in w/her in regard to this again tomorrow. ROJELIO Perez
--- NOTE | 2022-12-17 10:51 | CASEMGMT ---
Social Work SW met w/pt in room, pt's daughter Elena also present. SW reviewed w/pt prior level of function and anticipated discharge plan. PCP: Dr. Ruano Specialists: Did see Dr. Hicks for asthma but is no longer seeing him Insurance: [facility] in [place] LNOK: Daughter Elena, Granddaughter Ashlee. LW/POA: Pt states her daughter Elena is listed, she may want to re-do the papers while she is here to update them, still wants to keep Elena as POA. SW will follow up w/pt. Living arrangements: Pt lives home in a two story home, but stays on the first floor. 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 Pt explains that his mother was going to [facility] and asked her to take care of him, this was four years ago. The 23 year old is with his mother at present, he needs 24 hour care. He is involved with [employer] and has a case investigator. Pt is independent with all ADLs, cooks, cleans, organizes meds, drives, does her own personal ADLs. DME/HHC/SNF: Pt uses a cane, no other DME. Pt has had [facility], has never needed to go somewhere for rehab. We spoke about options at discharge, including home care, or rehab in a facility. Pt states she wants to go home, states she does not have time to go to an inpt rehab. Pt will have PT/OT tomorrow, SW explained we will check back in w/her after this to make sure homegoing is the most appropriate plan. Pt states understanding. Plan: TBD, likely home, possible HHC referral or outpt therapy referral. SW to follow up regarding LW/POA. ROJELIO Perez
[2022-12-17 11:36] LABS: Bedside Glucose 131 mg/dL (74-106)
[2022-12-17 16:16] LABS: Bedside Glucose 78 mg/dL (74-106)
--- NOTE | 2022-12-17 18:30 | MRI_ITS ---
STUDY: MRI BRAIN WITHOUT CONTRAST REASON FOR EXAM: Female, 77 years old. CVA -- MRI 24 hours after IV thrombolytic administration TECHNIQUE: Standardized multiplanar fat and water weighted pulse sequences were obtained. COMPARISON: 12/16/2022 HEMISPHERES, CEREBELLUM AND BRAINSTEM: 1. The cerebral parenchyma, ventricular system, subarachnoid spaces have normal configuration. There is a normal gyral pattern. There is normal landa/white differentiation. No midline shift.. 2. Mild subcortical and periventricular white matter FLAIR hyperintensities compatible with chronic microvascular ischemic change.. 3. No intraparenchymal mass, hemorrhage, or acute territorial infarct. 4. The cerebellum, brainstem, basilar and suprasellar cisterns have normal appearance. No Chiari malformation. PITUITARY: Infundibulum and pituitary have normal configuration. Midline structures appear normal. CSF SPACES: Appropriate for age. No hydrocephalus. Basal cisterns are patent. VESSELS: 1. There are normal flow voids noted in the great vessels at the skull base ORBITS AND PARANASAL SINUSES: 1. Bilateral ocular lens replacements. 2. Paranasal sinuses are clear. BONY ELEMENTS: Bony elements of the cranial vault, facial skeleton and skull base have normal appearance. SCALP AND SOFT TISSUES: Normal appearance of the soft tissues of the scalp and the visualized face MRI/Brain without Contrast IMPRESSION: 1. No intracranial mass, hemorrhage, or acute territorial infarct. 2. No radiographically significant sinus disease. Electronically Signed: Pablo Mix MD at 19:58 EDT ,
--- NOTE | 2022-12-17 22:02 | CPS ---
pt in MRI
[2022-12-17] MEDS: Rosuvastatin Calcium 5 MG Tablet PO (22:04)
[2022-12-17 22:30] LABS: Bedside Glucose 111 mg/dL (74-106)
[2022-12-18] VITALS (11 sets, daily range): BP systolic 114–147; BP diastolic 70–87; PULSE 71–89; RESP 15–21; TEMP 36.4–36.8; O2SAT 93–97; BMI 34.5; BMI 35.0
--- NOTE | 2022-12-18 00:35 | CPS ---
pt did not bring in own bipap machine -pt refused the hopsitals machine-97% on room air
[2022-12-18 06:31] LABS: Bedside Glucose 98 mg/dL (74-106)
--- NOTE | 2022-12-18 07:05 | PN.CC_ITS ---
Assessment & Plan Assessment/Plan (1) Acute CVA (cerebrovascular accident): PLAN: Plan RECOMMENDATIONS: 1. PT/OT evaluations today. 2. Recommend neurology follow-up. 3. Encourage incentive spirometer use while in bed. 4. We will sign off from a critical care perspective. Please call with any additional questions. IMPRESSIONS: 1. Acute CVA status post tenecteplase The patient initially presented to the hospital with dizziness and diplopia. She was evaluated by neurology and felt to be a candidate for thrombolytic therapy. The patient has noted improvement in her symptoms since receiving the aforementioned therapy. However, subsequent brain MRI failed to demonstrate evidence of acute infarction. Echocardiogram was unrevealing. Recommend PT/OT evaluations along with neurology follow-up. 2. History of diabetes mellitus/hypertension/hyperlipidemia/obesity Complicates care, management, recovery and prognosis. Continue home medications as indicated. This note was generated with [employer] dictation software. It may contain incorrect words, spelling, and punctuation that were not noted in checking the note before signing. Subjective Subjective The patient was seen and examined at the bedside this morning. Events from the last 24 hours have been reviewed. The patient is currently afebrile, hemodynamically stable and maintaining appropriate oxygen saturations on room air. Brain MRI yesterday ruled out acute infarct. The patient has no specific complaints this morning. Objective Data Objective Data The patient's most recent lab work, culture data and imaging studies have all been personally reviewed. Surface echocardiogram demonstrated normal LV size and thickness with an ejection fraction of 65%. Vital Signs: Vital Signs Temp Pulse Resp BP Pulse Ox O2 Del Method 98.3 F 74 18 144/73 H 94 Room Air 12/18/22 00:00 12/18/22 05:00 12/18/22 05:00 12/18/22 05:00 12/18/22 05:00 12/18/22 05:00 Oxygen Delivery Method Room Air Weight: 179 lb 8 oz Body Mass Index (BMI) 35.0 Intake & Output: Intake and Output for Last 24 Hours 12/16/22 12/17/22 12/18/22 23:59 23:59 23:59 Intake Total 5636.66 / 5636.66 0 / 0 Output Total 4150 / 4150 1000 / 1000 Balance 1486.66 / 1486.66 -1000 / -1000 Lab / Micro Data Attestation: I reviewed the patient's lab results. Result Diagrams: 12/17/22 03:40 12/17/22 03:40 Labs: Laboratory Results - last 24 hr 12/17/22 03:40: Hemoglobin A1c 6.4 H 12/17/22 08:04: POC Glucose 95 12/17/22 11:09: POC Glucose 131 H 12/17/22 15:55: POC Glucose 78 12/17/22 22:02: POC Glucose 111 H 12/18/22 06:07: POC Glucose 98 Radiography Diagnostic Testing: Radiology Impression Echocardiogram 12/16/22 20:51 Interpretation Summary The left ventricular ejection fraction is 65 %. Diastolic function is indeterminate. The left atrium is severely enlarged. Mild focal mitral valve calcification. Mild (1+) aortic valve insufficiency. Mildly dilated aortic root. Ordering Physician: Kitty Brooks Referring Physician: Edda Ruano Performed By: Dede Melissa, TAMICS, RVT Brain MRI 12/17/22 18:30 IMPRESSION: 1. No intracranial mass, hemorrhage, or acute territorial infarct. 2. No radiographically significant sinus disease. Electronically Signed: Pablo Mix MD at 19:58 EDT , Physical Exam Const alert, oriented x3 and no apparent distress General Appearance: cooperative HEENT normocephalic, head/scalp atraumatic and moist oral mucous membranes Eyes PERRL, EOMs intact bilaterally and conjunctivae normal Neck supple General: trachea midline Chest inspection of chest normal Resp normal respiratory effort Auscultation: Negative for rales, rhonchi or wheezes Cardio regular rate and regular rhythm GI normal to inspection, nondistended, normoactive bowel sounds Extremity no clubbing, cyanosis or edema Skin no rashes or lesions noted Neuro CN's II-XII intact bilaterally and no focal motor deficits Psych cooperative and affect normal Charges/Coding Visit Charges Inpatient E&M: 24294 Subs Hosp L2
--- NOTE | 2022-12-18 07:23 | TELEMED_ITS ---
SOC Telemed has confirmed receipt of a request for visit. This document confirms receipt of the order initiating the consult. To find the results of the consultation, please view the patient's reports for the scanned Telemed Consult.
--- NOTE | 2022-12-18 07:25 | PN.HOSP_ITS ---
Reason for Visit Reason for Visit: Diagnoses Cerebral infarction due to unspecified occlusion or stenosis of left posterior cerebral artery (12/16/22) Cerebral infarction, unspecified (12/16/22) Subjective Subjective Follow-up for left quadrantanopia possible ischemic stroke. Objective Data Objective Data Vital Signs: Vital Signs Temp Pulse Resp BP Pulse Ox O2 Del Method 98.3 F 74 18 144/73 H 94 Room Air 12/18/22 00:00 12/18/22 05:00 12/18/22 05:00 12/18/22 05:00 12/18/22 05:00 12/18/22 05:00 Oxygen Delivery Method Room Air Weight: 179 lb 8 oz Body Mass Index (BMI) 35.0 Intake & Output: Intake and Output for Last 24 Hours 12/16/22 12/17/22 12/18/22 23:59 23:59 23:59 Intake Total 5636.66 / 5636.66 0 / 0 Output Total 4150 / 4150 1000 / 1000 Balance 1486.66 / 1486.66 -1000 / -1000 Lab / Micro Data Result Diagrams: 12/17/22 03:40 12/17/22 03:40 Labs: Laboratory Results - last 24 hr 12/17/22 03:40: Hemoglobin A1c 6.4 H 12/17/22 08:04: POC Glucose 95 12/17/22 11:09: POC Glucose 131 H 12/17/22 15:55: POC Glucose 78 12/17/22 22:02: POC Glucose 111 H 12/18/22 06:07: POC Glucose 98 Radiography Diagnostic Testing: Radiology Impression Echocardiogram 12/16/22 20:51 Interpretation Summary The left ventricular ejection fraction is 65 %. Diastolic function is indeterminate. The left atrium is severely enlarged. Mild focal mitral valve calcification. Mild (1+) aortic valve insufficiency. Mildly dilated aortic root. Brain MRI 12/17/22 18:30 IMPRESSION: 1. No intracranial mass, hemorrhage, or acute territorial infarct. 2. No radiographically significant sinus disease. Physical Exam Narrative Patient had tenecteplase on day of admission. Feels improvement in the strength of her left upper and lower extremity and vision. During physical therapy, patient went to A-fib RVR heart rate 140/min but at rest she is back at the sinus rhythm. Physical exam General: Alert, Oriented x3, Cooperative HEENT: Mild blurry on the left visual field extreme. Left upper quadranropia. Atraumatic, PERRLA, EOMI, Normocephalic Oral: Oral mucosa moist. No Gingival or Mucosal Lesions/ Ulcerations Neck: Supple, No JVD, Negative Carotid Bruits Lungs: Air entry diminished in bilateral lung bases. No crepitation/rhonchi Cardiovascular: Sinus rhythm. Regular rate, Regular Rhythm, Normal S1, Normal S2, No murmurs Abdomen: Bowel Sounds Present, Soft, Non Tender, Non-Distended : No renal angle tenderness. No suprapubic tenderness. Extremities: No edema, Capillary Refill Less than 3 Seconds Skin: No rashes, No breakdown Musculoskeletal: No Tenderness to Palpation of Joints or Extremities Neurological: Muscle strength 5/5 in left upper extremity, 4+/5 left lower extremity. No dysmetria. [id number]-[id number] and finger-nose test are negative. No extension. NIH stroke scale 1 For partial hemianopia. Psych/Mental Status: Normal Affect, Appropriate. 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 Patient denies any trouble with speech or swallowing. #1. Left homonymous superior quadrantanopia, left sided mild weakness/numbness, suggestive of ischemic stroke: CT head no acute abnormality. CTA head and neck ruled out LVO. Patient is being admitted in ICU after given tenecteplase. NIH stroke scale monitoring, BP 180/105 and with and glucose monitoring as per guidelines. Serum magnesium 2.0. Troponin normal. Fasting lipid profile LDL 60 HDL 39. TSH normal. MRI scheduled for evening 6 PM. 2D echo is done. After that SOC consult 12/18: MRI brain does not show acute territorial infarct or hemorrhage or mass. Bubble contrast study negative for [id number] interatrial shunt. Work-up is complete. SOC consult. Plan was to start on dual antiplatelet agent aspirin and Plavix but patient went into A-fib with RVR, new onset therefore started on aspirin and Eliquis 5 mg twice daily #2. Diabetes mellitus type II with chronic neuropathy: A1c 6.4, glucose well controlled. #3. Hypertension: As noted we will follow post tenecteplase order set with as needed agents per stroke protocol as needed with resumption of hypertensive regimen once appropriate. #4. Hyperlipidemia: attempt to change to moderate dose statin therapy given acute presentation as noted but does have history of joint pain with statin therapies #5. History sarcoidosis: Unclear exact involvement, encourage continued outpatient follow-up and assessment. #6. New onset A-fib, transient with history PSVT: Patient was sinus rhythm during hospital course on the bed. But when tried to make walk she went to A- fib RVR heart rate 120 to 140/min, back to sinus rhythm at rest. Twelve-lead EKG at today shows normal sinus rhythm at 88 bpm. 2D echo shows left atrium severely enlarged. Cardiology consult requested. Heart rate is controlled in 70s, started on low-dose metoprolol 12.5 mg twice daily. #7. Anxiety and depression: continue patient home Paxil as well as clorazepate as needed regimen. #8. History of VTE: Patient is not chronically anticoagulated per current list, recent tenecteplase administration as noted, holding on chemoprophylaxis given this. #9. History splenomegaly: Patient status post prior splenectomy. #10. Allergic rhinitis: We will continue patient home fluticasone regimen. #11. Obesity: Weight loss and lifestyle changes encouraged, nutrition consulted per stroke admission protocol. #12. Asthma: Does have budesonide listed on home regimen however she states she does not use this, will have as needed albuterol, encourage head of bed and I-S. #13. ELISHA: CPAP nightly. #14. DVT prophylaxis: SCDs. #15. CODE status: Patient SANDOVAL is her daughter and her granddaughter and living will is currently in place but she notes that some items need to be updated. Discussed CODE status at length including difference between FULL code, DNR-CCA and DNR-CC status. Following discussions about the differences in these status, requested Full Code status. Charges/Coding Visit Charges Inpatient E&M: 41254 Subs Hosp L3
[2022-12-18] MEDS: Paroxetine 20 MG Tablet PO ×2 (08:21→20:51)
[2022-12-18] MEDS: Fluticasone 0.05% 1 SPRAY NASAL.SRY NASAL (08:21)
[2022-12-18] MEDS: Gabapentin 400 MG Capsule PO ×2 (08:24→20:51)
--- NOTE | 2022-12-18 10:25 | PCM.DC ---
Discharge Instructions Diet Discharge Diet: 2000 mg Sodium Diet Activity Discharge Activity: May Not Drive (until cleared by critical care physician assistant and neurologist) Weight Bearing Status: Weight bearing as tolerated Dressing / Incision Call your doctor if you observe: Fever of 101 or Higher, Coldness, Increased Pain, Numbness or Tingling, Change in Color, Inability to urinate, Inability to have a bowel movement, Shortness of breath, Dizziness, Fainting spells, Swelling in the ankles, Chest pain, Prolonged hiccupping, Increased palpitations (irregular heartbeat) and Calf discomfort Follow Up Care When: IN 2 WEEKS Test Results: Test results from this visit will be discussed in further detail at your follow-up appointment, if applicable. Discharge Plan Admission Admit Date/Time: 12/16/22 19:43 Primary Reason for Your Visit: Acute ischemic stroke. Attending Provider: Kyle Roth Primary Care Provider: Edda Ruano Consulting Providers: Alonso Tapia ; Shahbaz Elliott ; Keshawn Forte ; Darrion Pradhan ; Estrellita Wisdom NP ; Kitty Brooks Discharge Orders/Prescriptions Prescriptions: Continued Azo Cranberry 250 mg tablet,chewable 250 mg PO TID fluticasone propionate [Flonase Allergy Relief] 50 mcg/actuation spray,suspension 1 spray intranasal DAILY Rx Instructions: administer into each nostril clorazepate dipotassium [Tranxene T-Tab] 7.5 mg tablet 7.5 mg PO BID PRN (Reason: Anxiety) paroxetine HCl [Paxil] 20 MG tablet 20 mg PO BID verapamil 80 MG tablet 80 mg PO BID gabapentin 400 MG capsule 400 mg PO BID diazepam 5 mg tablet 5 mg PO Q8 PRN (Reason: Muscle Spasm) Qty: 12 0RF clobetasol 0.05 % cream 1 applic TOPICAL DAILY Rx Instructions: apply to vaginal area Changed rosuvastatin [Crestor] 5 mg tablet 10 mg PO DAILY Qty: 30 0RF Rx Instructions: takes every other day if joint pain occurs Held naproxen 500 mg tablet 500 mg PO BID Hold Instructions: Hold it while patient taking dual antiplatelet agent metformin 500 mg tablet 500 mg PO BID Hold Instructions: Hold for 1 day. Referrals / Follow Up: Edda Ruano MD [Primary Care Provider] -
--- NOTE | 2022-12-18 10:36 | DS.PCM_ITS ---
Providers Date of Admission: 12/16/22 Date of Discharge: 12/18/22 Primary Care Physician: Dr. Edda Ruano MD Consultations 12/16/22 19:11 Consult: Medical Transcriptionist / Pulmonary Medicine [facility]ine [facility] Reason for Consult: stroke for thrombolytic administration EMERGENT Consult: Yes MD Notified: Yes Date Notified: 12/16/22 Time Notified: 19:11 Method of Notification: Verbal Method of Consult:: In-Person Comments:: Consult may be done in ED or ICU 12/16/22 20:51 Consult: Medical Transcriptionist / Pulmonary Medicine Routine [facility]ing [facility] Reason for Consult: stroke for thrombolytic EMERGENT Consult: No MD Notified: Yes Date Notified: 12/16/22 Time Notified: 19:46 Method of Notification: Text Reason For Visit: CVA S/P TENEKTPLASE Diagnosis Discharge Diagnosis (1) Acute CVA (cerebrovascular accident): Status: Acute Code(s): I63.9 - Cerebral infarction, unspecified Plan The patient is a 77 y/o F was brought by EMS for dizziness, disequilibrium, left-sided weakness, left eye blurry vision with LKN approxi-5:30 PM on day of admission. 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 Patient denies any trouble with speech or swallowing. #1. Left homonymous superior quadrantanopia, left sided mild weakness/numbness, suggestive of ischemic stroke: CT head no acute abnormality. CTA head and neck ruled out LVO. Patient is being admitted in ICU after given tenecteplase. NIH stroke scale monitoring, BP 180/105 and with and glucose monitoring as per guidelines. Serum magnesium 2.0. Troponin normal. Fasting lipid profile LDL 60 HDL 39. TSH normal. MRI scheduled for evening 6 PM. 2D echo is done. After that SOC consult 12/18: MRI brain does not show acute territorial infarct or hemorrhage or mass. Bubble contrast study negative for [id number] interatrial shunt. Work-up is complete. SOC consult. #2. Diabetes mellitus type II with chronic neuropathy: A1c 6.4, glucose well controlled. #3. Hypertension: As noted we will follow post tenecteplase order set with as needed agents per stroke protocol as needed with resumption of hypertensive regimen once appropriate. #4. Hyperlipidemia: attempt to change to moderate dose statin therapy given acute presentation as noted but does have history of joint pain with statin therapies #5. History sarcoidosis: Unclear exact involvement, encourage continued outpatient follow-up and assessment. #6. History PSVT: Given acute presentation as noted temporarily holding patient on verapamil, will maintain on telemetry monitoring. #7. Anxiety and depression: continue patient home Paxil as well as clorazepate as needed regimen. #8. History of VTE: Patient is not chronically anticoagulated per current list, recent tenecteplase administration as noted, holding on chemoprophylaxis given this. #9. History splenomegaly: Patient status post prior splenectomy. #10. Allergic rhinitis: We will continue patient home fluticasone regimen. #11. Obesity: Weight loss and lifestyle changes encouraged, nutrition consulted per stroke admission protocol. #12. Asthma: Does have budesonide listed on home regimen however she states she does not use this, will have as needed albuterol, encourage head of bed and I-S. #13. ELISHA: CPAP nightly. #14. DVT prophylaxis: SCDs. #15. CODE status: Patient SANDOVAL is her daughter and her granddaughter and living will is currently in place but she notes that some items need to be updated. Discussed CODE status at length including difference between FULL code, DNR-CCA and DNR-CC status. Following discussions about the differences in these status, requested Full Code status. Medications at Discharge Home Medications paroxetine HCl 20 mg tablet (Paxil) 20 mg PO BID DEPRESSION 04/03/16 verapamil 80 mg tablet 80 mg PO BID HEART 04/03/16 cranberry fruit concentrate 250 mg chewable tablet (Azo Cranberry) 250 mg PO TID supplement 06/05/19 metformin 500 mg tablet 500 mg PO BID blood sugar 06/05/19 naproxen 500 mg tablet 500 mg PO BID pain 06/05/19 gabapentin 400 mg capsule 400 mg PO BID nerve pain 10/29/20 clorazepate dipotassium 7.5 mg tablet (Tranxene T-Tab) 7.5 mg PO BID PRN Anxiety 09/09/21 fluticasone propionate 50 mcg/actuation nasal spray,suspension (Flonase Allergy Relief) 1 spray intranasal DAILY 09/09/21 diazepam 5 mg tablet 5 mg PO Q8 PRN Muscle Spasm #12 tabs 05/03/22 clobetasol 0.05 % topical cream 1 applic topical DAILY 12/16/22 aspirin 81 mg tablet,delayed release 81 mg PO BREAKFAST 30 days #30 tabs 12/18/22 clopidogrel 75 mg tablet 75 mg PO DAILY 21 days #21 tabs 12/18/22 rosuvastatin 5 mg tablet (Crestor) 10 mg PO DAILY cholesterol #30 tabs 12/18/22 Weight / BMI Weight Weight: 179 lb 8 oz Body Mass Index (BMI) 35.0 ABG / Lab / Microbiology Data Result Diagrams: 12/17/22 03:40 12/17/22 03:40 Laboratory: Laboratory Results - last 24 hr 12/17/22 11:09: POC Glucose 131 H 12/17/22 15:55: POC Glucose 78 12/17/22 22:02: POC Glucose 111 H 12/18/22 06:07: POC Glucose 98 Radiography Diagnostic Testing: Radiology Impression Echocardiogram 12/16/22 20:51 Interpretation Summary The left ventricular ejection fraction is 65 %. Diastolic function is indeterminate. The left atrium is severely enlarged. Mild focal mitral valve calcification. Mild (1+) aortic valve insufficiency. Mildly dilated aortic root. Ordering Physician: Kitty Brooks Referring Physician: Edda Ruano Performed By: Dede Melissa, JEAN, RVT Brain MRI 12/17/22 18:30 IMPRESSION: 1. No intracranial mass, hemorrhage, or acute territorial infarct. 2. No radiographically significant sinus disease. Electronically Signed: Pablo Mix MD at 19:58 EDT , D/C Instructions Discharge Diet: 2000 mg Sodium Diet Weight Bearing Status: Weight bearing as tolerated Call your doctor if you observe: Fever of 101 or Higher, Coldness, Increased Pain, Numbness or Tingling, Change in Color, Inability to urinate, Inability to have a bowel movement, Shortness of breath, Dizziness, Fainting spells, Swelling in the ankles, Chest pain, Prolonged hiccupping, Increased palpitations (irregular heartbeat) and Calf discomfort When: IN 2 WEEKS Discharge Plan Admission Admit Date/Time: 12/16/22 19:43 Primary Reason for Your Visit: Acute ischemic stroke. Attending Provider: Kyle Roth Primary Care Provider: Edda Ruano Consulting Providers: Alonso Tapia ; Shahbaz Elliott ; Keshawn Forte ; Darrion Pradhan ; Estrellita Wisdom NP ; Kitty Brooks Discharge Orders/Prescriptions Prescriptions: New aspirin 81 mg Tablet,Delayed Release (Dr/Ec) 81 mg PO BREAKFAST 30 Days Qty: 30 3RF clopidogrel 75 mg Tablet 75 mg PO DAILY 21 Days Qty: 21 0RF Continued Azo Cranberry 250 mg tablet,chewable 250 mg PO TID fluticasone propionate [Flonase Allergy Relief] 50 mcg/actuation spray,suspension 1 spray intranasal DAILY Rx Instructions: administer into each nostril clorazepate dipotassium [Tranxene T-Tab] 7.5 mg tablet 7.5 mg PO BID PRN (Reason: Anxiety) paroxetine HCl [Paxil] 20 MG tablet 20 mg PO BID verapamil 80 MG tablet 80 mg PO BID gabapentin 400 MG capsule 400 mg PO BID diazepam 5 mg tablet 5 mg PO Q8 PRN (Reason: Muscle Spasm) Qty: 12 0RF clobetasol 0.05 % cream 1 applic TOPICAL DAILY Rx Instructions: apply to vaginal area Changed rosuvastatin [Crestor] 5 mg tablet 10 mg PO DAILY Qty: 30 0RF Rx Instructions: takes every other day if joint pain occurs Held naproxen 500 mg tablet 500 mg PO BID Hold Instructions: Hold it while patient taking dual antiplatelet agent metformin 500 mg tablet 500 mg PO BID Hold Instructions: Hold for 1 day. Referrals / Follow Up: Calvin Nash MD [Med Staff - Active Staff] - Within 1 Week (Left quadrantopia, stroke ) Edda Ruano MD [Primary Care Provider] - Prosper Main MD [Non-Staff -Ordering Privileges] - Within 2 Weeks (for ischemic stroke) Disposition Disposition (needs filled in before D/C Order can be placed): Home, Self Care
--- NOTE | 2022-12-18 10:37 | CASEMGMT ---
Social Work SW assisted pt in completing LW/POA forms, she put her daughter Franca as POA. SW gave pt originals and copies, and placed copies on the chart. Pt also completed the organ donation form, SW mailed it for her. Pt also requested information on donating her body to [facility], information provided. Pt would like home health and also as per PT could benefit from a walker. CM notified. No further social service needs are anticipated at this time. ROJELIO Perez
--- NOTE | 2022-12-18 12:00 | CASEMGMT ---
MARIA LUISA BARNETT updated by RAJEEV that patient will need HHC and FWW at discharge. MARIA LUISA CM to patient's room to discuss discharge planning with patient. A list of HHC providers including quality and resource use data and consistent with the patient?s preferred geographical region, medical needs, and insurance network were provided from the [facility] Guide. Patient states she prefers [facility]. Patient would like [facility] for DME. Script received and referral sent to [facility] via [facility] and arranged for delivery to room. RN CM called referral and they are able to accept the patient with planned start of care for Wednesday. MARIA LUISA BARNETT updated patient. No further questions or concerns at this time.
[2022-12-18] MEDS: Aspirin E.C. 81 MG Tablet PO (12:22)
[2022-12-18] MEDS: APIXABAN 5 MG TABLET PO ×2 (12:23→20:50)
--- NOTE | 2022-12-18 12:36 | NURSING ---
report called to [facility] for transfer to room 125, transferred per chair with belongings
[2022-12-18 12:46] LABS: Bedside Glucose 87 mg/dL (74-106)
--- NOTE | 2022-12-18 13:51 | CHAPLAIN ---
Type of Pastoral Visit _x__ Initial Visit ___ Follow-up Visit ___ On-call Visit ___ General Patient Visit ___ Spiritual Assessment ___ Family Conference ___ Bereavement ___ Rapid Response ___ Code Blue ___ Other (describe below) Pastoral Care Referral From _x__ Patient ___ Family ___ Nurse ___ Physician ___ Supervisor [employer] Service ___ Mechanical Applications Engineer ___ Other (describe below) Sacrament/Intervention _x__ Active listening ___ Anointing ___ Restorationist ___ Bereavement ___ Communion _x__ Vanessa exploration ___ _x__ Life review _x__ Prayer ___ Reconciliation ___ Sacrament of Sick _x__ Supportive presence ___ Wedding ___ Other (describe below) Pastoral Comments patient is very welcoming and invites this refueling rampman to sit down and visit with her; pt just learned that she is not going home today and so somewhat disappointed per her words; pt has many questions about spiritual matters and relates her own life and vanessa journey; pt talks about her family and how supportive they have been; pt admits that I will have to make some life changes, I will learn from this, I won't be here forever,; pt is open to talk about many topics of which she leads the conversation; pt welcomes prayer
[2022-12-18 17:01] LABS: Bedside Glucose 96 mg/dL (74-106)
--- NOTE | 2022-12-18 19:00 | NURSING ---
Emergency documentation started on 12/18 at 1900.
[2022-12-18] MEDS: diazePAM 5 MG Tablet PO (20:51)
[2022-12-18 22:50] LABS: Bedside Glucose 93 mg/dL (74-106)
[2022-12-19 03:00] VITALS: BP 118/82; PULSE 74; RESP 16; TEMP 36.6; O2SAT 98
[2022-12-19 07:06] LABS: Bedside Glucose 110 mg/dL (74-106)
[2022-12-19 07:54] VITALS: O2SAT 96
[2022-12-19] MEDS: APIXABAN 5 MG TABLET PO (08:55)
[2022-12-19] MEDS: Fluticasone 0.05% 1 SPRAY NASAL.SRY NASAL (08:55)
[2022-12-19] MEDS: Paroxetine 20 MG Tablet PO (08:57)
[2022-12-19 09:00] VITALS: BP 133/85; PULSE 88; RESP 14; TEMP 36.6; O2SAT 97
[2022-12-19] MEDS: Gabapentin 400 MG Capsule PO (09:01)
--- NOTE | 2022-12-19 09:06 | CON.PCM.CA_ITS ---
Assessment & Plan Assessment/Plan (1) Acute CVA (cerebrovascular accident): PLAN: Patient presented with what appears to be an acute cerebrovascular accident and received tenecteplase with good results. At this time she does not appear to have any deficit. Will defer to hospitalist and neurologist on further management of the above. (2) Paroxysmal atrial fibrillation: PLAN: Review of the telemetry strips clearly demonstrates paroxysmal atrial fibrillation. My recommendation at this time would be to institute anticoagulation with a DOAC and consider discontinuing the aspirin. The verapamil should also be reinstituted. The above has been discussed with the hospitalist and understand and agree to proceed. We will sign off for now. Please reconsult as necessary. Thank you for allowing me to participate in the care of your patient. Please don't hesitate to call if any issues arise. HPI Consult Data Date of Consult: 12/19/22 HPI Narrative HPI Narrative: FARIDA JHAVERI, is a 77 F who presents with a history of hypertension, diabetes mellitus, hyperlipidemia, and obesity. She presented to the emergency room on December 16 with diplopia and dizziness. On presentation to the emergency department, the patient was noted to be afebrile hemodynamically stable.? She was maintaining appropriate oxygen saturations on room air.? Laboratory evaluation revealed a white blood cell count of 11,000.? Coagulation profile was unremarkable.? Chemistry profile was unrevealing.? CT head was unremarkable.? CTA head and neck showed no evidence of a large vessel occlusion.? The patient was evaluated by neurology and felt to be a candidate for tenecteplase.? Full thrombolytic therapy, the patient was admitted to the medical intensive care unit per protocol. The patient had been taking of her verapamil and was noted to have episodes of tachycardia during the admission. Reviewing the strips it was unclear what these were and cardiology was consulted for further evaluation and management. The strips were reviewed and appear to be consistent with paroxysmal atrial fibrillation. An echocardiogram was performed which demonstrated preserved left ventricular systolic function. Review of the echocardiogram demonstrated normal atrial sizes. [facility] Medical History Anxiety and depression Arthritis Asthma BMI 36.0-36.9,adult Diabetes Hemorrhoids Herpes simplex vulvovaginitis History of blood clots History of PSVT (paroxysmal supraventricular tachycardia) Hyperlipidemia Lichen sclerosus Obesity Sarcoidosis Sleep apnea Spleen anomaly Splenomegaly Vulvar dermatitis Home Medications paroxetine HCl 20 mg tablet (Paxil) 20 mg PO BID DEPRESSION 04/03/16 [History Last Taken 10/28/20] verapamil 80 mg tablet 80 mg PO BID HEART 04/03/16 [History Last Taken 10/28/20] cranberry fruit concentrate 250 mg chewable tablet (Azo Cranberry) 250 mg PO TID supplement 06/05/19 [History Last Taken 10/28/20] metformin 500 mg tablet 500 mg PO BID blood sugar 06/05/19 [History Last Taken 10/28/20] naproxen 500 mg tablet 500 mg PO BID pain 06/05/19 [History Last Taken 10/28/20] gabapentin 400 mg capsule 400 mg PO BID nerve pain 10/29/20 [History Last Taken 10/28/20] clorazepate dipotassium 7.5 mg tablet (Tranxene T-Tab) 7.5 mg PO BID PRN Anxiety 09/09/21 [History Last Taken Unknown] fluticasone propionate 50 mcg/actuation nasal spray,suspension (Flonase Allergy Relief) 1 spray intranasal DAILY 09/09/21 [History Last Taken Unknown] diazepam 5 mg tablet 5 mg PO Q8 PRN Muscle Spasm #12 tabs 05/03/22 [Rx Last [place] Unknown] clobetasol 0.05 % topical cream 1 applic topical DAILY 12/16/22 [History Last Taken Unknown] aspirin 81 mg tablet,delayed release 81 mg PO BREAKFAST 30 days #30 tabs 12/18/22 [Rx Last Taken Unknown] clopidogrel 75 mg tablet 75 mg PO DAILY 21 days #21 tabs 12/18/22 [Rx Last Taken Unknown] rosuvastatin 5 mg tablet (Crestor) 10 mg PO DAILY cholesterol #30 tabs 12/18/22 [Rx Last Taken Unknown] Allergy/AdvReac Type Severity Reaction Status Date / Time lidocaine Allergy Intermediate tachycardia Verified 12/16/22 18:27 Penicillins Allergy Hives Verified 12/16/22 18:27 atorvastatin AdvReac Pain in Verified 12/16/22 18:27 joints hydrocodone bitartrate AdvReac Vomiting Verified 12/16/22 18:27 [From Vicodin] oxycodone HCl [From Percocet] AdvReac Vomiting Verified 12/16/22 18:27 Family History Daughter Hypertension Father Heart disease Mother Dementia Surgical History H/O splenectomy History of breast biopsy History of hysterectomy Social History Smoking Status: Never smoker alcohol intake: current details: social substance use type: does not use caffeine: Yes what type of physical activity do you participate in: walking seatbelt use: always do you feel safe at home: Yes 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 Constitutional Constitutional: Denies fever(s) or weight loss Eyes Eyes: Reports systems reviewed and no addt'l complaints, except as documented ENT HEENT: Reports systems reviewed and no addt'l complaints, except as documented Cardiovascular Cardiovascular: Denies chest pain at rest, chest pain with activity, dyspnea at rest, dyspnea on exertion, edema, palpitations or paroxysmal nocturnal dyspnea Respiratory/Chest Respiratory/Chest: Denies dyspnea on exertion, productive cough, shortness of breath at rest or shortness of breath with exertion Gastrointestinal Gastrointestinal: Denies change in bowel habits, nausea, vomiting or weight changes Genitourinary Genitourinary: Denies difficulty urinating Musculoskeletal Musculoskeletal: Denies joint stiffness or muscle weakness Integumentary Integumentary: Denies lesions Neurologic Neurologic: Denies dizziness or syncope Psychiatric Psychiatric: Denies anxiety Endocrine Endocrinology: Denies excessive sweating or fatigue Hematologic/Lymphatic Hematologic/Lymphatic: Denies anemia Allergic/Immunologic Allergic/Immunologic: Denies seasonal rhinorrhea Physical Exam Const alert, oriented x3 and no apparent distress General Appearance: cooperative HEENT hearing grossly normal bilaterally Head and Scalp: atraumatic Eyes EOMs intact bilaterally Neck General: normal visual inspection Chest inspection of chest normal and palpation of chest normal Resp normal respiratory effort Auscultation: clear to auscultation bilaterally Cardio regular rate, regular rhythm, S1 normal heart sound and S2 normal heart sound Jugular Venous Distention: JVD GI normal to inspection, nondistended, normoactive bowel sounds Extremity normal capillary refill and no pedal edema Peripheral Pulses: Yes pulses 2+ throughout and femoral pulses present Skin no rashes or lesions noted Neuro oriented x3 and CN's II-XII intact bilaterally Psych Appearance: grossly normal and appropriate Risk Stratification Risk Stratification Applicable: No Objective Data Vital Signs: Vital Signs Temp Pulse Resp BP Pulse Ox O2 Del Method 98 F 74 16 118/82 H 96 Room Air 12/19/22 03:00 12/19/22 03:00 12/19/22 03:00 12/19/22 03:00 12/19/22 07:54 12/19/22 07:54 Oxygen Delivery Method Room Air Weight: 179 lb 8 oz Body Mass Index (BMI) 35.0 Intake & Output: Intake and Output for Last 24 Hours 12/17/22 12/18/22 12/19/22 23:59 23:59 23:59 Intake Total 5636.66 / 5636.66 760 / 760 Output Total 4150 / 4150 1500 / 1500 Balance 1486.66 / 1486.66 -740 / -740 Lab / Micro Data Result Diagrams: 12/17/22 03:40 12/17/22 03:40 Labs: Laboratory Results - last 24 hr 12/18/22 12:20: POC Glucose 87 12/18/22 16:25: POC Glucose 96 12/18/22 20:48: POC Glucose 93 12/19/22 06:19: POC Glucose 110 H Cardiology Labs/Tests Rhythm: EKG: ECHO: Stress Test: Cardiac Cath: PCI: CT Surgery: Holter monitor: EPS: PPM: CXR: Chest CT Scan:
--- NOTE | 2022-12-19 09:14 | EKG12_ITS ---
Test Reason : Blood Pressure : / mmHG Vent. Rate : 083 BPM Atrial Rate : 083 BPM P-R Int : 154 ms QRS Dur : 074 ms QT Int : 368 ms P-R-T Axes : 022 -17 094 degrees QTc Int : 432 ms Normal sinus rhythm Inferior infarct , age undetermined Abnormal ECG When compared with ECG of 16-DEC-2022 18:42, Inferior infarct is now Present Confirmed by THOMAS TOLEDO, NIRANJAN ([id number]), commissioning editor DAWSON LOVE ([id number]) on 12/22/2022 9:07:41 AM Referred By: JIN Confirmed By:NIRANJAN GUZMAN MD
--- NOTE | 2022-12-19 10:18 | DCINST_ITS ---
Discharge Instructions Diet Discharge Diet: Low fat / Low cholesterol and 2000 mg Sodium Diet Activity Discharge Activity: Return to Normal Activity Weight Bearing Status: Weight bearing as tolerated Dressing / Incision Call your doctor if you observe: Fever of 101 or Higher, Coldness, Increased Pain, Numbness or Tingling, Change in Color, Inability to urinate, Inability to have a bowel movement, Shortness of breath, Dizziness, Fainting spells, Swelling in the ankles, Chest pain, Prolonged hiccupping, Increased palpitations (irregular heartbeat) and Calf discomfort Follow Up Care When: IN 2 WEEKS Test Results: Test results from this visit will be discussed in further detail at your follow- up appointment, if applicable. Discharge Plan Admission Admit Date/Time: 12/16/22 19:43 Primary Reason for Your Visit: Acute ischemic stroke. Attending Provider: Kyle Roth Primary Care Provider: Edda Ruano Consulting Providers: Alonso Tapia ; Shahbaz Elliott ; Keshawn Forte ; Darrion Pradhan ; Estrellita Wisdom NP ; Kitty Brooks ; Abner Shell Discharge Orders/Prescriptions Prescriptions: New Eliquis 5 mg Tablet 5 mg PO BID 30 Days Qty: 60 2RF Continued Azo Cranberry 250 mg tablet,chewable 250 mg PO TID fluticasone propionate [Flonase Allergy Relief] 50 mcg/actuation spray,suspension 1 spray intranasal DAILY Rx Instructions: administer into each nostril clorazepate dipotassium [Tranxene T-Tab] 7.5 mg tablet 7.5 mg PO BID PRN (Reason: Anxiety) paroxetine HCl [Paxil] 20 MG tablet 20 mg PO BID verapamil 80 MG tablet 80 mg PO BID gabapentin 400 MG capsule 400 mg PO BID diazepam 5 mg tablet 5 mg PO Q8 PRN (Reason: Muscle Spasm) Qty: 12 0RF clobetasol 0.05 % cream 1 applic TOPICAL DAILY Rx Instructions: apply to vaginal area Changed rosuvastatin [Crestor] 5 mg tablet 10 mg PO DAILY Qty: 30 0RF Rx Instructions: takes every other day if joint pain occurs Held naproxen 500 mg tablet 500 mg PO BID Hold Instructions: Hold it while patient taking dual antiplatelet agent metformin 500 mg tablet 500 mg PO BID Hold Instructions: Hold for 1 day. Referrals / Follow Up: Calvin Nash MD [Med Staff - Active Staff] - Within 1 Week (Left quadrantopia, stroke ) Edda Ruano MD [Primary Care Provider] - Prosper Main MD [Non-Staff -Ordering Privileges] - Within 2 Weeks (for ischemic stroke) Disposition Disposition (needs filled in before D/C Order can be placed): Home Health Service
--- NOTE | 2022-12-19 10:21 | DS.PCM_ITS ---
Providers Date of Admission: 12/16/22 Date of Discharge: 12/19/22 Primary Care Physician: Dr. Edda Ruano MD Consultations 12/16/22 19:11 Consult: Diversional Therapist'S Assistant / Pulmonary Medicine Routine Consulting Provider: Pulmonary Medicine maryann [place] Reason for Consult: stroke for thrombolytic administration EMERGENT Consult: Yes MD Notified: Yes Date Notified: 12/16/22 Time Notified: 19:11 Method of Notification: Verbal Method of Consult:: In-Person Comments:: Consult may be done in ED or ICU 12/16/22 20:51 Consult: Diversional Therapist'S Assistant / Pulmonary Medicine Routine Consulting Provider: Pulmonary Medicine [place] Reason for Consult: stroke for thrombolytic EMERGENT Consult: No MD Notified: Yes Date Notified: 12/16/22 Time Notified: 19:46 Method of Notification: Text 12/18/22 11:28 Consult: Cardiology Routine Consulting Provider: Abner Shell Reason for Consult: New onset afib, ischemic stroke/embolic? EMERGENT Consult: No MD Notified: Yes Date Notified: 12/18/22 Time Notified: 11:28 Method of Notification: Verbal Reason For Visit: CVA S/P TENEKTPLASE Diagnosis Discharge Diagnosis (1) Acute CVA (cerebrovascular accident): Status: Acute Code(s): I63.9 - Cerebral infarction, unspecified (2) Paroxysmal atrial fibrillation: Status: Acute Code(s): I48.0 - Paroxysmal atrial fibrillation (3) Acute ischemic left posterior cerebral artery (ASSEMBLER MOVEMENT) stroke: Status: Acute Code(s): I63.532 - Cerebral infarction due to unspecified occlusion or stenosis of left posterior cerebral artery Plan The patient is a 77 y/o F was brought by EMS for dizziness, disequilibrium, left -sided weakness, left eye blurry vision with LKN approxi-5:30 PM on day of admission.? This happened while she was walking to [facility] to burr picker medications..? Patient denies any trouble with speech or swallowing. #1.? Left homonymous superior quadrantanopia, left sided mild weakness/numbness, suggestive of ischemic stroke: CT head no acute abnormality.? CTA head and neck ruled out LVO.? Patient is being admitted in ICU after given tenecteplase.? NIH stroke scale monitoring, BP 180/105 and with and glucose monitoring as per guidelines.? Serum magnesium 2.0.? Troponin normal.? Fasting lipid profile LDL 60 HDL 39.? TSH normal.? MRI scheduled for evening 6 PM.? 2D echo is done.? After that SOC consult 12/18: MRI brain does not show acute territorial infarct or hemorrhage or mass.? Bubble contrast study negative for [id number] interatrial shunt.? Work-up is complete.? SOC consult.? Plan was to start on dual antiplatelet agent aspirin and Plavix but patient went into A-fib with RVR, new onset therefore started Eliquis 5 mg twice daily. As the MRI does not show features of acute stroke therefore decided Eliquis 5 mg twice daily and aspirin Plavix discontinued after discussion with the salvage engineering technician and patient. #2.? Diabetes mellitus type II with chronic neuropathy: A1c 6.4, glucose well controlled. #3.? Hypertension: As noted we will follow post tenecteplase order set with as needed agents per stroke protocol as needed with resumption of hypertensive regimen once appropriate. #4.? Hyperlipidemia: Patient on rosuvastatin which is changed to daily. Patient LDL is 60. Patient has history of severe myalgia and bone pain therefore did not increase the dose but change the frequency #5.? History sarcoidosis: Unclear exact involvement, encourage continued outpatient follow-up and assessment. #6.? New onset A-fib, transient with history PSVT: Patient was sinus rhythm d uring hospital course on the bed.? But when tried to make walk she went to A-fib RVR heart rate 120 to 140/min, back to sinus rhythm at rest.? Twelve-lead EKG at today shows normal sinus rhythm at 88 bpm.? 2D echo shows left atrium severely enlarged but Dr. Shell reviewed and he said its not enlarged.? Cardiology consult was done? Heart rate is controlled in 70s, resumed on verapamil. 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 funds transfer clerk strips and EKG discussed with Dr. Sanches yesterday. Aspirin and Plavix were discontinued. Patient will follow-up with ecologist technician and neurologist. Advised not to drive until cleared by ecologist technician. Patient will follow salvage engineering technician for paroxysmal A-fib. Twelve-lead EKG again was done today and shows sinus rhythm 83 bpm. #7.? Anxiety and depression:? continue patient home Paxil as well as clorazepate as needed regimen. #8.? History of VTE: Patient is not chronically anticoagulated per current list, recent tenecteplase administration as noted, holding on chemoprophylaxis given this. #9.? History splenomegaly: Patient status post prior splenectomy. #10.? Allergic rhinitis: We will continue patient home fluticasone regimen. #11.? Obesity: Weight loss and lifestyle changes encouraged, nutrition consulted per stroke admission protocol. #12.? Asthma: Does have budesonide listed on home regimen however she states she does not use this, will have as needed albuterol, encourage head of bed and I-S. #13.? ELISHA: CPAP nightly. #14.? DVT prophylaxis: SCDs. #15.? CODE status: Patient SANDOVAL is her daughter and her granddaughter and living will is currently in place but she notes that some items need to be updated. Discussed CODE status at length including difference between FULL code, DNR-CCA and DNR-CC status. Following discussions about the differences in these status, requested Full Code status. Discharge medication reconciliation done. Discharge follow-up instructions completed. Discharge process discussed with the patient and all questions were answered to patient's satisfaction. Total time spent, exact 35 minutes on discharge meds reconciliation, examination, coordination of care with nurses and ancillary staff, review of imaging and blood test and discussion with the patient on follow-up instructions. Medications at Discharge Home Medications paroxetine HCl 20 mg tablet (Paxil) 20 mg PO BID DEPRESSION 04/03/16 verapamil 80 mg tablet 80 mg PO BID HEART 04/03/16 cranberry fruit concentrate 250 mg chewable tablet (Azo Cranberry) 250 mg PO TID supplement 06/05/19 metformin 500 mg tablet 500 mg PO BID blood sugar 06/05/19 naproxen 500 mg tablet 500 mg PO BID pain 06/05/19 gabapentin 400 mg capsule 400 mg PO BID nerve pain 10/29/20 clorazepate dipotassium 7.5 mg tablet (Tranxene T-Tab) 7.5 mg PO BID PRN Anxiety 09/09/21 fluticasone propionate 50 mcg/actuation nasal spray,suspension (Flonase Allergy Relief) 1 spray intranasal DAILY 09/09/21 diazepam 5 mg tablet 5 mg PO Q8 PRN Muscle Spasm #12 tabs 08/07/22 clobetasol 0.05 % topical cream 1 applic topical DAILY 12/16/22 rosuvastatin 5 mg tablet (Crestor) 10 mg PO DAILY cholesterol #30 tabs 12/18/22 apixaban 5 mg tablet (Eliquis) 5 mg PO BID 30 days #60 tabs 12/19/22 Weight / BMI Weight Weight: 179 lb 8 oz Body Mass Index (BMI) 35.0 ABG / Lab / Microbiology Data Result Diagrams: 12/17/22 03:40 12/17/22 03:40 Laboratory: Laboratory Results - last 24 hr 12/18/22 12:20: POC Glucose 87 12/18/22 16:25: POC Glucose 96 12/18/22 20:48: POC Glucose 93 12/19/22 06:19: POC Glucose 110 H D/C Instructions Discharge Diet: Low fat / Low cholesterol and 2000 mg Sodium Diet Weight Bearing Status: Weight bearing as tolerated Call your doctor if you observe: Fever of 101 or Higher, Coldness, Increased Pain, Numbness or Tingling, Change in Color, Inability to urinate, Inability to have a bowel movement, Shortness of breath, Dizziness, Fainting spells, Swelling in the ankles, Chest pain, Prolonged hiccupping, Increased palpitations (irregular heartbeat) and Calf discomfort When: IN 2 WEEKS Meaningful Use Info Meaningful Use Diagnoses (Choose all that apply): None applicable Discharge Plan Admission Admit Date/Time: 12/16/22 19:43 Primary Reason for Your Visit: Acute ischemic stroke. Attending Provider: Kyle Roth Primary Care Provider: Edda Ruano Consulting Providers: Alonso Tapia ; Shahbaz Elliott ; Keshawn Forte ; Darrion Pradhan ; Estrellita Wisdom NP ; Kitty Brooks ; Abner Shell Discharge Orders/Prescriptions Prescriptions: New Eliquis 5 mg Tablet 5 mg PO BID 30 Days Qty: 60 2RF Continued Azo Cranberry 250 mg tablet,chewable 250 mg PO TID fluticasone propionate [Flonase Allergy Relief] 50 mcg/actuation spray,suspension 1 spray intranasal DAILY Rx Instructions: administer into each nostril clorazepate dipotassium [Tranxene T-Tab] 7.5 mg tablet 7.5 mg PO BID PRN (Reason: Anxiety) paroxetine HCl [Paxil] 20 MG tablet 20 mg PO BID verapamil 80 MG tablet 80 mg PO BID gabapentin 400 MG capsule 400 mg PO BID diazepam 5 mg tablet 5 mg PO Q8 PRN (Reason: Muscle Spasm) Qty: 12 0RF clobetasol 0.05 % cream 1 applic TOPICAL DAILY Rx Instructions: apply to vaginal area Changed rosuvastatin [Crestor] 5 mg tablet 10 mg PO DAILY Qty: 30 0RF Rx Instructions: takes every other day if joint pain occurs Held naproxen 500 mg tablet 500 mg PO BID Hold Instructions: Hold it while patient taking dual antiplatelet agent metformin 500 mg tablet 500 mg PO BID Hold Instructions: Hold for 1 day. Referrals / Follow Up: Calvin Nash MD [Med Staff - Active Staff] - Within 1 Week (Left quadrantopia, stroke ) Edda Ruano MD [Primary Care Provider] - Prosper Main MD [Non-Staff -Ordering Privileges] - Within 2 Weeks (for ischemic stroke) Disposition Disposition (needs filled in before D/C Order can be placed): Home Health Service Charges/Coding Visit Charges Inpatient E&M: 56703 Disch Hosp >30min
--- NOTE | 2022-12-19 10:24 | NURSING ---
I left a voicemail with Leticia at [facility] to inform her pt's d/c.
[2022-12-19 10:46] VITALS: BMI 35.0
--- NOTE | 2022-12-19 11:46 | CASEMGMT ---
MARIA LUISA CM: Noted pt discharge with new prescription for Eliquis. Call placed to pt's pharmacy and 30 day free discount card information provided. Pharmacist confirmed it was applied; however, did state pt's original co-pay was $46. Call placed to pt and informed pt of the application of the discount card and that her subsequent co-pays will be $46. Pt expressed understanding and appreciation. Sandi Jackson RN CM
== END 2022-12-19 11:09 | disposition home health service (06) | DRG 62 ==
LOC: ED 19:22 → ICU 20:02 → PCU 12-18 12:53
PROVIDERS: Admitting Provider Family Medicine; Emergency Provider Emergency Medicine; PCP Internal Medicine; Visit Provider Internal Medicine
DX: I63.532 Cerebral infarction due to unspecified occlusion or stenosis of left posterior cerebral artery (principal); G81.94 Hemiplegia, unspecified affecting left nondominant side; E11.40 Type 2 diabetes mellitus with diabetic neuropathy, unspecified; I48.0 Paroxysmal atrial fibrillation; E78.00 Pure hypercholesterolemia, unspecified; I10 Essential (primary) hypertension; R26.2 Difficulty in walking, not elsewhere classified; H53.2 Diplopia; G47.33 Obstructive sleep apnea (adult) (pediatric); J45.909 Unspecified asthma, uncomplicated; F41.9 Anxiety disorder, unspecified; Z79.84 Long term (current) use of oral hypoglycemic drugs; E66.9 Obesity, unspecified; R29.701 NIHSS score 1; F32.A Depression, unspecified; Z68.35 Body mass index [BMI] 35.0-35.9, adult
CPT/HCPCS: 51702; 70450; 70496; 70498; 70551; 71045; 80048; 80053; 80061; 82962; 83036; 83735; 84443; 84484; 85025; 85610; 85730; 92523; 93005; 93306; 94668; 94762; 97110; 97162; 97166; 97535; 97802; 97803; 99252; 99285; J3101; J7030; Q9967; A4216; G0463; J3490

== ENCOUNTER 2023-02-19 07:35 | Emergency (ER) | payer MEDICARE, SELFPAY ==
[2023-02-19 07:36] VITALS: BP 154/77; PULSE 84; RESP 16; TEMP 36.8; O2SAT 96; BMI 33.7
--- NOTE | 2023-02-19 07:45 | EKG12_ITS ---
Test Reason : DIZZINESS Blood Pressure : / mmHG Vent. Rate : 071 BPM Atrial Rate : 071 BPM P-R Int : 172 ms QRS Dur : 070 ms QT Int : 392 ms P-R-T Axes : 034 -02 062 degrees QTc Int : 425 ms Normal sinus rhythm Low voltage QRS Borderline ECG Confirmed by THOMAS TOLEDO, NIRANJAN ([id number]), editor trade journal DAWSON LOVE ([id number]) on 02/23/2023 10:10:21 AM Referred By: Confirmed By:NIRANJAN GUZMAN MD
--- NOTE | 2023-02-19 07:45 | RAD_ITS ---
STUDY: X-RAY CHEST REASON FOR EXAM: Female, 77 years old. Dizziness, nausea TECHNIQUE: Single AP portable view of the chest. COMPARISON: 12/16/2022 FINDINGS: EKG leads overlie the chest The lungs are clear and expanded. There is no demonstrated pleural abnormality. Normal size heart. Normal mediastinum and kendrick. Normal visualized pulmonary arteries. Normal visualized aortic arch and descending thoracic aorta. Normal visualized thoracic spine. Normal visualized ribs, clavicles, and shoulders. There is no demonstrated abnormality of the visualized soft tissue structures of the upper abdomen. RAD/Chest 1 View IMPRESSION: Normal x-ray examination of the chest. Electronically Signed: Darnell Restrepo MD at 8:26 EDT ,
--- NOTE | 2023-02-19 07:56 | EDS_ITS ---
HPI History of Present Illness Chief Complaint: Dizziness Narrative Narrative: Patient is a 77-year-old female who is presenting to the ER today with chief complaint of lightheaded, dizziness, and vertigo that has resolved. Patient arrived by EMS. Patient stated she woke up at 7 AM feeling completely normal. Patient went to the bathroom to urinate. Patient after she urinated started feeling lightheaded, dizzy, and then had some vertigo. Patient lives at home with family. Patient then called for her niece. Patient had 1 episode of loose stool. Patient then had onset of vertigo with nausea, no vomiting. She did have a headache as well. Patient's headache was not the worse headache of her life, not sudden onset, not thunderclap in nature. Patient came in by EMS, patient blood sugar was within normal limits. Patient also takes Eliquis. Patient is a diabetic. Patient takes verapamil, Crestor, see her medication list. 0745 patient was seen and evaluated, patient's symptoms have almost completely resolved. Patient says that her left arm was tremoring at home, but no acute loss of function to her arms or legs. Patient states that her vertigo has completely resolved. She is no longer nauseous. Patient still has some mild lightheaded/dizziness, but no longer has vertigo, no headache, no nausea. Patient has no chest pain or shortness of breath. Patient typically uses her 2 feet when she ambulates, no recent fall, no head trauma, no other acute complai nts. [facility] Medical History (Updated 02/19/23 @ 09:[address] Calvin Angeles, DO) Acute ischemic left posterior cerebral artery ([employer]ACH[employer]) stroke Anxiety and depression Arthritis Asthma Atrial fibrillation BMI 36.0-36.9,adult Diabetes Hemorrhoids Herpes simplex vulvovaginitis History of blood clots History of PSVT (paroxysmal supraventricular tachycardia) Hyperlipidemia Lichen sclerosus Obesity Sarcoidosis Sleep apnea Spleen anomaly Splenomegaly Vertigo Vulvar dermatitis Home Medications paroxetine HCl 20 mg tablet (Paxil) 20 mg PO BID DEPRESSION 04/03/16 [History Last Taken 10/28/20] verapamil 80 mg tablet 80 mg PO BID HEART 04/03/16 [History Last Taken 10/28/20] cranberry fruit concentrate 250 mg chewable tablet (Azo Cranberry) 250 mg PO TID supplement 06/05/19 [History Last Taken 10/28/20] metformin 500 mg tablet 500 mg PO BID blood sugar 06/05/19 [History Last Taken 10/28/20] naproxen 500 mg tablet 500 mg PO BID pain 06/05/19 [History Last Taken 10/28/20] gabapentin 400 mg capsule 400 mg PO BID nerve pain 10/29/20 [History Last Taken 10/28/20] clorazepate dipotassium 7.5 mg tablet (Tranxene T-Tab) 7.5 mg PO BID PRN Anxiety 09/09/21 [History Last Taken Unknown] fluticasone propionate 50 mcg/actuation nasal spray,suspension (Flonase Allergy Relief) 1 spray intranasal DAILY 09/09/21 [History Last Taken Unknown] diazepam 5 mg tablet 5 mg PO Q8 PRN Muscle Spasm #12 tabs 05/03/22 [Rx Last Taken Unknown] clobetasol 0.05 % topical cream 1 applic topical DAILY 12/16/22 [History Last Taken Unknown] rosuvastatin 5 mg tablet (Crestor) 10 mg PO DAILY cholesterol #30 tabs 12/18/22 [Rx Last Taken Unknown] apixaban 5 mg tablet (Eliquis) 5 mg PO BID 30 days #60 tabs 12/19/22 [Rx Last Taken Unknown] meclizine 25 mg tablet 25 mg PO 4X/DAY PRN PRN Dizziness #6 tabs 02/19/23 [Rx Last Taken Unknown] ondansetron 4 mg disintegrating tablet 4 mg PO Q4H PRN PRN Nausea #10 tabs 02/19/23 [Rx Last Taken Unknown] Allergy/AdvReac Type Severity Reaction Status Date / Time lidocaine Allergy Intermediate tachycardia Verified 02/19/23 07:39 Penicillins Allergy Hives Verified 02/19/23 07:39 atorvastatin AdvReac Pain in Verified 02/19/23 07:39 joints hydrocodone bitartrate AdvReac Vomiting Verified 02/19/23 07:39 [From Vicodin] oxycodone HCl [From Percocet] AdvReac Vomiting Verified 02/19/23 07:39 Family History Daughter Hypertension Father Heart disease Mother Dementia Surgical History H/O splenectomy History of breast biopsy History of hysterectomy Social History Smoking Status: Never smoker alcohol intake: current details: social substance use type: does not use caffeine: Yes what type of physical activity do you participate in: walking seatbelt use: always do you feel safe at home: Yes 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 EXAM Physical Exam Narrative Exam Narrative: Vital signs reviewed and patient is not hypoxic. General: The patient appears well and in no apparent distress. Patient is resting comfortably on cart. Not toxic, lethargic, or listless. Skin: Warm, dry, no pallor noted. There is no rash noted. Head: Normocephalic, atraumatic Eye: Normal conjunctiva, no drainage, EOMI. PERRL. Ears, Nose, Mouth, and Throat: oral mucosa is moist. Nares patent. Mouth without vesicles. Patient's bilateral TMs shows no erythema, perforation or bulging. No carotid bruits bilateral. Cardiovascular: Regular Rate and Rhythm, no murmurs, gallops, or rubs Respiratory: Patient is in no distress, no accessory muscle use, lungs are clear to auscultation, no wheezing, rales or rhonchi Back: non-tender, no CVA tenderness bilaterally to percussion. NO CTLS midline or paraspinal tenderness to palpation. GI: Soft, no tenderness to palpation, no masses appreciated. No rebound, guarding, or rigidity noted. Musculoskeletal: The patient has full range of motion of all extremities and joints with no difficulty. Patient has no motor, no sensory deficits. Patient is wearing a thumb spica Velcro wrist splint to her right hand/wrist, patient thinks she has carpal tunnel syndrome, she is following up with a specialist for this. No acute injury. Neurological: A&O x4, normal speech, no focal neurological deficits. NIH 0 Psychiatric: Cooperative Const Vital Signs: 02/19/23 07:36 02/19/23 07:43 02/19/23 08:01 Temperature 98.2 F Temperature Source Temporal Pulse Rate 84 Respiratory Rate 16 Respiratory Effort Normal Non-Labored Respiratory Pattern Normal Blood Pressure 154/77 H Blood Pressure Mean 102 Pulse Ox 96 95 Oxygen Delivery Method Room Air Room Air 02/19/23 08:10 02/19/23 08:40 02/19/23 09:00 Temperature Temperature Source Pulse Rate 73 78 Respiratory Rate 13 15 17 Respiratory Effort Respiratory Pattern Blood Pressure 142/70 H 138/80 H 128/66 H Blood Pressure Mean 94 99 86 Pulse Ox 97 96 96 Oxygen Delivery Method Room Air Room Air Room Air MDM MDM MDM Narrative Medical decision making narrative: CT of the brain showed no acute findings, chest x-ray showed no acute cardio pulmonary disease. Lab work shows no acute inflammatory response or signs of infection. Patient's EKG and troponin showed no acute changes. Patient had no vertigo, no nausea in the ER. Patient was ambulated just prior to discharge, she still has a minimal sensation of feeling off but this has been going on for months, nothing new or acute to today. Patient does have a neurologist. Patient has seen her neurologist in the past several months when she has had this sensation of feeling off however, patient did not mention this sensation or feelings of imbalance to her neurologist last time she saw her. Patient or daughter will call today for an appointment for reevaluation by neurologist. Patient is aware to return back to the ER if intractable nausea, vomiting, vertigo, or any other acute complaints Lab Data Attestation: I reviewed the patient's lab results. Labs: Laboratory Results - last 24 hr 02/19/23 02/19/23 02/19/23 07:41 07:50 07:50 WBC 10.8 RBC 4.48 Hgb 13.5 Hct 42.2 MCV 94.2 MCH 30.1 MCHC 32.0 RDW Std Deviation 54.8 H RDW Coeff of Kadi 15.9 H Plt Count 405 MPV 10.0 Immature Gran % (Auto) 0.300 Neut % (Auto) 48.2 Lymph % (Auto) 33.6 [place] % (Auto) 16.4 H Eos % (Auto) 1.0 Baso % (Auto) 0.5 Absolute Neuts (auto) 5.2 Absolute Lymphs (auto) 3.61 Nucleated RBC % 0 Differential Comment COMMENT PT 15.3 H INR 1.2 APTT 29.2 Sodium Potassium Chloride Carbon Dioxide Anion Gap BUN Creatinine Estim Creat Clear Calc Est GFR (MDRD) Af Amer Est GFR (MDRD) Non-Af BUN/Creatinine Ratio Glucose Calcium Troponin I High Sens POC Glucose 107 H 02/19/23 07:50 WBC RBC Hgb Hct MCV MCH MCHC RDW Std Deviation RDW Coeff of Kadi Plt Count MPV Immature Gran % (Auto) Neut % (Auto) Lymph % (Auto) [place] % (Auto) Eos % (Auto) Baso % (Auto) Absolute Neuts (auto) Absolute Lymphs (auto) Nucleated RBC % Differential Comment PT INR APTT Sodium 143 Potassium 3.5 Chloride 108 H Carbon Dioxide 28.0 Anion Gap 7 BUN 16 Creatinine 0.71 Estim Creat Clear Calc 36.68 Est GFR (MDRD) Af Amer 104 Est GFR (MDRD) Non-Af 86 BUN/Creatinine Ratio 22.6 H Glucose 113 H Calcium 9.3 Troponin I High Sens 5 POC Glucose Radiography Chest X-Ray - ED: 2 View and Read by ED Physician (Chest x-ray shows no acute cardiopulmonary disease, no infiltrate, no effusion.) Diagnostic Testing: Clinical Impression(s) from Imaging Studies Chest X-Ray 02/19/23 07:45 IMPRESSION: Normal x-ray examination of the chest. Electronically Signed: Darnell Restrepo MD at 8:26 EDT Reading Location ID and State: [facility] / [place] , Service support , Brain CT 02/19/23 08:00 IMPRESSION: Chronic involutional changes of the brain. No acute hemorrhage or significant interval change N.B. : The above Results were Read Back by Darnell Restrepo MD to Dr. Karthik MD, and understanding confirmed on 02/19/2023 08:15:45 (ET). Electronically Signed: Darnell Restrepo MD at 8:17 EDT , ADDENDUM: 02/19/23 0824 IMPRESSION: Chronic involutional changes of the brain. No acute hemorrhage or significant interval change N.B. : The above Results were Read Back by Darnell Restrepo MD to Dr. Karthik MD, and understanding confirmed on 02/19/2023 08:15:45 (ET). Electronically Signed: Darnell Restrepo MD at 8:17 EDT , EKG Initial EKG: Attestation: I personally reviewed and interpreted this EKG as follows: Comments: EKG interpretation. Normal sinus rhythm at 71 beats a minute. Left axis deviation. No acute ST elevation, no acute ectopy. QTc of 425, EKG reading low voltage Discharge Plan Triage Chief Complaint: Dizziness ED Provider: Calvin Angeles Dx/Rx/DC Orders Clinical Impression: Dizziness, Vertigo, Diarrhea Instructions: Vertigo Medicine Tx, Vertigo Staying Safe, ED Diarrhea, Unknown Cause, ED Dizziness, Uncertain Cause Prescriptions: New meclizine [meclizine] 25 mg tablet 25 mg PO 4X/DAY PRN PRN (Reason: Dizziness) Qty: 6 0RF ondansetron [ondansetron] 4 mg tablet,disintegrating 4 mg PO Q4H PRN PRN (Reason: Nausea) Qty: 10 0RF No Action naproxen 500 mg tablet 500 mg PO BID Hold Instructions: Hold it while patient taking dual antiplatelet agent Azo Cranberry 250 mg tablet,chewable 250 mg PO TID metformin 500 mg tablet 500 mg PO BID Hold Instructions: Hold for 1 day. fluticasone propionate [Flonase Allergy Relief] 50 mcg/actuation spray,suspension 1 spray intranasal DAILY Rx Instructions: administer into each nostril clorazepate dipotassium [Tranxene T-Tab] 7.5 mg tablet 7.5 mg PO BID PRN (Reason: Anxiety) paroxetine HCl [Paxil] 20 MG tablet 20 mg PO BID verapamil 80 MG tablet 80 mg PO BID gabapentin 400 MG capsule 400 mg PO BID diazepam 5 mg tablet 5 mg PO Q8 PRN (Reason: Muscle Spasm) Qty: 12 0RF clobetasol 0.05 % cream 1 applic TOPICAL DAILY Rx Instructions: apply to vaginal area rosuvastatin [Crestor] 5 mg tablet 10 mg PO DAILY Qty: 30 0RF Rx Instructions: takes every other day if joint pain occurs Eliquis 5 mg Tablet 5 mg PO BID 30 Days Qty: 60 2RF Primary Care Provider: Edda Ruano Referrals: Edda Ruano MD [Primary Care Provider] - Activity Restrictions/Additional Instructions: Increase fluids, follow-up with PCP. If any other acute changes, return to ER for intractable vertigo, intractable nausea or vomiting. If nausea starts, use Zofran. If vertigo returns, try Antivert at home again if needed. Follow-up with your neurologist for your chronic sensations of feeling off and imbalance Disposition Disposition: Home, Self Care
--- NOTE | 2023-02-19 08:00 | CT_ITS ---
STUDY: CT BRAIN WITHOUT CONTRAST REASON FOR EXAM: Female, 77 years old. Neuro deficit, acute, stroke suspected, vertigo RADIATION DOSAGE (If Supplied By Facility): CTDIvol = ( ) mGy, DLP = ( ) mGy TECHNIQUE: Transaxial CT imaging of the brain was performed without administration of intravenous contrast material. Individualized dose optimization techniques were used for this CT. COMPARISON: CT brain, and MRI brain from 12/16/2022 FINDINGS: Normal soft tissue structures. Normal calvarium. Normal size ventricles and extra-axial spaces for the patient''s age. Normal white matter tracts of the cerebral hemispheres. Normal basal ganglia and thalami. Normal brainstem. Normal cerebellum. There is no intracranial hemorrhage. There are no findings of an acute ischemic infarction. Normal visualized paranasal sinuses. CT/STROKE Brain/Head without Cont IMPRESSION: Chronic involutional changes of the brain. No acute hemorrhage or significant interval change N.B. : The above Results were Read Back by Darnell Restrepo MD to Dr. Karthik MD, and understanding confirmed on 02/19/2023 08:15:45 (ET). Electronically Signed: Darnell Restrepo MD at 8:17 EDT ,
[2023-02-19 08:01] VITALS: O2SAT 95
[2023-02-19 08:02] LABS: Bedside Glucose 107 mg/dL (74-106)
[2023-02-19 08:03] LABS: Absolute Lymphocyte Count 3.61 X10^3/uL (0.83-4.51); Absolute Neutrophil Count 5.2 X10^3/uL (2.0-7.7); Basophil# 0.05 X10^3/uL; Basophil% 0.5 % (0-1); Eosinophil# 0.11 X10^3/uL; Hematocrit 42.2 % (37-47); Hemoglobin 13.5 g/dL (12.0-15.0); Lymphocyte # 3.61 X10^3/ul (0.83-4.51); Lymphocyte % 33.6 % (19-41); Mean Corpuscular Hgb 30.1 pg (27.0-32.0); Mean Corpuscular Volume 94.2 fL (81-99); Monocyte# 1.76 X10^3/uL; Monocyte% 16.4 % (0-10); NRBC Flagged by Analyzer 0 % (0-5); Neutrophil % 48.2 % (47-70); POSITIVE DIFFERENTIAL YES; Platelet Count 405 K/mm3 (150-450); RBC Distribution Width CV 15.9 % (11.6-14.6); RBC Distribution Width SD 54.8 fl (35.1-43.9); Red Blood Count 4.48 M/mm3 (4.2-5.4); White Blood Count 10.8 K/mm3 (4.4-11.0)
[2023-02-19 08:04] LABS: Differential Indicated SCAN CRITERIA MET
[2023-02-19 08:10] VITALS: BP 142/70; PULSE 73; RESP 13; O2SAT 97
[2023-02-19] MEDS: Ondansetron 4 MG/2 ML Vial IV (08:10)
[2023-02-19] MEDS: Meclizine HCl 25 MG Tablet PO (08:16)
[2023-02-19 08:19] LABS: International Normalized Ratio 1.2; Prothrombin Time (Protime)PT. 15.3 SECONDS (11.7-14.9)
[2023-02-19 08:20] LABS: Partial Thromboplast Time 29.2 Seconds (24.1-36.2)
[2023-02-19 08:23] LABS: Anion Gap 7 (5-15); BUN 16 mg/dL (7-18); BUN/Creat Ratio 22.6 RATIO (10-20); Calcium,Total 9.3 mg/dL (8.5-10.1); Chloride 108 mmol/L (98-107); Creatinine, Serum 0.71 mg/dL (0.55-1.02); EST Glomerular Filtration Rate 86 mL/min (>60); Est Glom Filt Rate - Afr Amer 104 mL/min (>60); Estimated Creatinine Clearance 36.68 ml/min; Glucose 113 mg/dL (74-106); Potassium 3.5 mmol/L (3.5-5.1); Sodium Level 143 mmol/L (136-145); Troponin-I HS 5 pg/mL (3.0-54.0)
[2023-02-19 08:40] VITALS: BP 138/80; RESP 15; O2SAT 96
[2023-02-19 09:00] VITALS: BP 128/66; PULSE 78; RESP 17; O2SAT 96
--- NOTE | 2023-02-19 09:13 | ED.RN ---
D/C [facility] PER DR MACHADO.
[2023-02-19 10:17] VITALS: BP 128/66; PULSE 68; RESP 16; O2SAT 96
== END 2023-02-19 10:19 | disposition home or self-care (01) ==
PROVIDERS: Emergency Provider Emergency Medicine; PCP Internal Medicine; Visit Provider Emergency Medicine
DX: R42 Dizziness and giddiness (principal); E11.9 Type 2 diabetes mellitus without complications; R11.0 Nausea; R19.7 Diarrhea, unspecified; E78.5 Hyperlipidemia, unspecified; R51.9 Headache, unspecified; Z79.01 Long term (current) use of anticoagulants
CPT/HCPCS: 70450; 71045; 80048; 82962; 84484; 85025; 85610; 85730; 93005; 99285; J7040; A4216; J2405

== ENCOUNTER 2023-04-02 13:00 | Outpatient (RCR) | payer MEDICARE, SELFPAY ==
--- NOTE | 2023-03-16 14:05 | HP.PTEVAL_ITS ---
Patient's Visit Information FARIDA JHAVERI is a 77 year old F referred to Physical Therapy by Dr. Edda Ruano MD with a diagnosis of Vertigo, Gait instability, B knee OA. Date of Evaluation: 03/16/23 Physical Therapist: QUAN Rg - Visit Plan Frequency: 1-2x /Week Duration: 2 Months Plan: Re check L Hallpike and once cleared check gait, balance, and knee and hip ROM/strength. - Subjective Pt has arthritis in her knees and she can not have surgery cause she had a stroke in November. Pt was told by ortho to no do PT on her knees but she had a lot of relief last time and wants to do PT on her knees. Last time she was here in PT she did land and they did a great job. Her knees hurt the most at night after she has done things all day. She know has bone spurs in B knees. She has a little bit of weakness on the L LE from the stroke and she had the stroke due to A-fib and she did not know she had A-Fib. She has dizziness a lot. She had vertigo before but she was better for awhile. About a month or so ago it came back. She got up to go the bathroom one night and fell to the floor due to dizziness and she was nauseated and the room spinned. She was taken to the hospital and they did check her for another stroke. If she turns her head fast either direction she will get dizzy and itll last 1 -30 seconds. If she rolls over in bed at night to the L she will get dizzy she thinks... and it last less than 30 seconds. She walks with a cane except for in the house. The last fall was in December when she tripped on a curb. She has a R foot problem and she is walking on her R big toe and needs surgery and will hopefully have surgery in JUN. - Pain R knee pain Pain Intensity (Out of 10): 1 L knee pain Pain Intensity (Out of 10): 3 - Objective L Hallpike + for torsional nystagmus that lasted from approx 50 seconds. Went right into L Eply and pt was dizzy in all positions. Pt broke out in a sweat an d then after about 4 min of sitting up straight she felt like she was going to fall over with the room spinning and felt nausea. She then had to have diarrhea and felt better. She had no dizziness after going to the bathroom (she felt much better after using the restroom). She agreed that we should call it quits for today and continue next visit. - Balance/Special Test Scores Lower Extremity Functional Score: 40 - Goals Goal 1:: I HEP Goal Time Frame: 6-8 Weeks Goal 2:: -L Hallpike Goal Time Frame: 6-8 Weeks Goal 3:: Test FGA and assess gait Goal Time Frame: 6-8 Weeks Goal 4:: Test knee AROM and strength Goal Time Frame: 6-8 Weeks - Anticipated Interventions Patient/Client Instruction: Educate patient on: Condition For the Purpose of:: To increase ROM, To improve nutrient delivery to tissue, To improve muscle performance and motor function, To improve ability to perform ADL's, To increase tolerance to activity/condition/position, To improve performance and independence with ADL's, To decrease level of supervision to perform tasks, To improve ability of physical actions for home/community/work/leisure, To improve gait and locomotor functions, To improve health of tissue, To decrease soft tissue restriction, To increase flexibility/ROM, To improve balance, To improve safety with gait Therapeutic Exercise to Include: Strength training, Endurance training, Flexibilty training, Gait and locomotor training, Neuromotor development, Passi ve ROM, Active ROM For the Purpose of:: To decrease pain, To increase ROM, To increase oxygenation perfusion, To improve muscle performance and motor function, To improve ability to perform ADL's, To increase tolerance to activity/condition/position, To improve performance and independence with ADL's, To decrease level of supervision to perform tasks, To improve ability of physical actions for home/community/work/leisure, To improve gait and locomotor functions, To improve health of tissue, To decrease soft tissue restriction, To increase flexibility/ROM, To improve endurance, To improve balance Functional Training to Include: Gait training For the Purpose of:: To improve gait and locomotor functions, To improve safety with gait Manual Therapy Techniques to Include: Other For the Purpose of:: To improve balance, To improve safety with gait Thank you for the opportunity to evaluate your patient. For Medicare and Medicare HMO plans, please review the plan of care and approve it. It will need to be FAXED BACK to us at [phone] for Medicare purposes. For Medicare only, by signing this I certify the plan of care. Please let me know if there are questions or concerns regarding this plan of care. Physician Signature: Date:
--- NOTE | 2023-06-28 14:56 | HP.PTDCSUM ---
Discharge Summary D/C summary: It has been my pleasure to treat FARIDA JHAVERI referred by Dr. Edda Ruano MD, with the diagnosis of Vertigo, Gait instability, B knee OA for a total of 3 visit(s). Discharge Date: Please see the following information for a summary of their discharge status. Subjective Subjective: Dizzyness was not good for a week but better now. Last couple days has laid down without getting dizzy even on L side. Not much of a problem in last couple days. Balance feels OK. Pain R knee pain: Pain Intensity (Out of 10): 1 L knee pain: Pain Intensity (Out of 10): 3 Objective Objective/Function: - B hallpike tory - roll test \ bending no problem. FGA is good today. Goals Goal 1:: I HEP Goal 2:: -L Hallpike Goal Progress: Goal Met Goal 3:: Test FGA and assess gait Goal Progress: Goal Met Goal 4:: Test knee AROM and strength Plan Plan: recheck 2 weeks to make sure patient is back to walking at home normally and likely d./c. To call in meantime if dizzyness returns. D/C Information d/c sentence: If there are questions or concerns regarding this patient's physical therapy, please feel free to call me at [phone]. Thank you for the referral of this patient. Sincerely, Steffi Ramirez, MPT Balance/Gait/Functional tests Balance/Special Test Scores Functional Gait Assessment Score: 27 % Disability: 10.0000 Lower Extremity Functional Score: 40
== END 2023-04-02 19:00 | disposition home or self-care (01) ==
LOC: PT 13:00
PROVIDERS: PCP Internal Medicine; Referring Provider Internal Medicine; Visit Provider Internal Medicine
DX: R42 Dizziness and giddiness (principal); R26.81 Unsteadiness on feet; M17.0 Bilateral primary osteoarthritis of knee
CPT/HCPCS: 97162; 97530

== ENCOUNTER → 2023-07-06 | Outpatient (CLI) | payer MEDICARE, SELFPAY ==
--- NOTE | 2023-07-06 17:41 | CT_ITS ---
STUDY: CTA CHEST AND ABDOMEN REASON FOR EXAM: Female, 78 years old. DILATED AORTIC ROOT RADIATION DOSAGE (If Supplied By Facility): CTDIvol = ( 14.26 ) mGy, DLP = ( 848.96 ) mGycm TECHNIQUE: The examination was performed with the intravenous administration of IV 100mL Isovue-370. Post-processing of the angiographic images was performed, with multiplanar reformation and 3D reconstruction. Individualized dose optimization techniques were used for this CT. COMPARISON: Chest x-ray dated February 19, 2023 FINDINGS: Normal enhancement of the main pulmonary artery and right and left pulmonary arteries. Normal enhancement of the bilateral peripheral pulmonary arteries. There is no demonstrated pulmonary embolism. There is atherosclerotic calcification of the aortic arch with tortuosity. Mild aneurysmal dilatation of the ascending aorta/aortic root junction at 4.28 x 3.71 cm. The aorta at the level of the valves measures 3.19 x 3.97 cm which is within normal limits. The diameter of the arch and descending thoracic aorta is within normal limits. There is no demonstrated aortic dissection. Normal heart and pericardium. There are no demonstrated calcifications of the coronary arteries. Normal mediastinum. Normal hilar regions. Normal visualized trachea and bronchi. The lungs are well expanded. Normal pulmonary parenchyma. No visualized consolidation or masses or nodules. No pleural effusion is present. Normal pleura. Normal chest wall structures. There are degenerative changes of thoracic spine. Normal visualized upper abdomen. IMPRESSION: 1. Negative CTA chest examination, without a demonstrated pulmonary embolism or arterial dissection. 2. Mild aneurysmal dilatation of the ascending aorta/aortic root junction at 4.28 x 3.71 cm. The aorta at the level of the valves measures 3.19 x 3.97 cm which is within normal limits. The diameter of the arch and descending thoracic aorta is within normal limits. 3. No visualized consolidation or masses or nodules. No pleural effusion is present. CTA OF THE ABDOMEN COMPARISON: None. Descriptors of Narrowing: None (0%) Mild (< 50%) Moderate (50-70%) Severe (70-90%) Subtotal/Total Occlusion (90-100%) Non-Evaluable (technically non-diagnostic FINDINGS: Diffuse calcified and noncalcified atherosclerotic plaque throughout the abdominal aorta and several of his branches Abdominal aorta: There is mild diffuse narrowing. Celiac and superior mesenteric arteries: There is mild origin narrowing due to mild atherosclerotic plaque. Normal distal to the origin. Inferior mesenteric artery: No demonstrated narrowing. Right renal artery(arteries): There is mild origin narrowing, normal distal to the origin. Left renal artery(arteries): There is mild origin narrowing, normal distal to the origin. Right common iliac artery: There is mild diffuse narrowing. Right external iliac artery: No demonstrated narrowing. Right internal iliac artery: There is mild diffuse narrowing. Left common iliac artery: There is mild diffuse narrowing. Left external iliac artery: No demonstrated narrowing. Left internal iliac artery: There is mild diffuse narrowing. The abdominal aorta is normal in caliber throughout. There are no signs of aneurysm or periaortic leak. There is no dissection. NONVASCULAR FINDINGS: The visualized lung bases are unremarkable. There is decreased attenuation of the liver consistent with steatosis. Normal gallbladder and extrahepatic biliary system. The spleen is absent. Left lateral abdominal wall small fat-containing hernia defect is most likely due to prior surgical intervention or trauma and measures 6.76 cm in diameter. Normal pancreas. Normal bilateral adrenal glands. Normal right kidney. There is mild cortical atrophy of the left kidney, consistent with chronic medical renal disease. Multiple small cysts are present in both kidneys which do not requiring additional imaging. There is a small hiatal hernia. Normal small intestine. Normal colon. There is non-visualization of the appendix. Normal inferior vena cava. Normal retroperitoneum. Normal abdominal wall. There are diffuse degenerative changes of the visualized lumbar spine. CT/CTA Abdomen W/WO Contrast IMPRESSION: 1. Mild atherosclerotic plaque of the abdominal aorta and an his branches, but without a hemodynamically significant stenosis. Electronically Signed: Viral Jefferson MD at 11:08 EDT ,
[2023-07-06 18:18] LABS: CREATININE FINGERSTICK < 0.9 mg/dL (0.55-1.02); EGFR FINGERSTICK > 60.0000 mL/min (>60)
== END | disposition home or self-care (01) ==
PROVIDERS: PCP Internal Medicine; Visit Provider Physician Assistant Medical
DX: I71.40 Abdominal aortic aneurysm, without rupture, unspecified (principal)
CPT/HCPCS: 71275; 74175; Q9967

== ENCOUNTER → 2023-07-12 | Outpatient (CLI) | payer MEDICARE, SELFPAY ==
--- NOTE | 2023-07-14 08:23 | STRESSREP ---
Stress Test Report Pharmacologic myocardial perfusion stress test. 78-year-old lady for preoperative cardiac evaluation Resting EKG demonstrates sinus rhythm with frequent premature atrial complexes with a rate of 82 bpm. Resting blood pressure is 148/78 mmHg. 0.4 mg of regadenoson was infused per usual protocol followed by rapid intravenous saline flush injection. Continuous EKG monitoring was performed. The maximum heart rate was 127 bpm which was 100% of max impacted heart rate the maximum workload was 1 metabolic equivalent. At rest there were no ST or T wave changes noted to suggest ischemia and at peak infusion nonspecific ST changes were noted which did not meet the criteria for ischemia. No clinical angina is noted. The final blood pressure was 144/78 mmHg. Myocardial perfusion protocol. 11.3 mCi of technetium 99m sestamibi was injected at rest. 0.4 mg of regadenoson was infused per usual protocol. At peak infusion 33.1 mCi of technetium 99m sestamibi was injected stress images were obtained stress and rest images were reconstructed and compared in the short axis vertical long and horizontal long axis. Gated images were also obtained. Perfusion SPECT analysis: Review of the stress images demonstrate normal uptake of tracer noted in all areas of the myocardium. The resting images similar demonstrated normal uptake of tracer noted in all areas of the myocardium. No areas of reversibility are noted to suggest ischemia and no previous infarct is noted. Gated SPECT analysis: The gated ejection fraction is 88%. Conclusion: Normal pharmacologic myocardial perfusion stress test. Preserved ejection fraction.
== END | disposition home or self-care (01) ==
LOC: CVS 06:47
PROVIDERS: PCP Internal Medicine; Referring Provider Physician Assistant Medical; Visit Provider Physician Assistant Medical
DX: Z01.810 Encounter for preprocedural cardiovascular examination (principal)
CPT/HCPCS: 78452; 93017; A9500; A4216; J2785

== ENCOUNTER 2025-01-12 15:56 | Emergency (ER) | payer MEDICARE, SELFPAY ==
[2025-01-12 15:56] VITALS: BP 153/74; PULSE 92; RESP 19; TEMP 36.7; O2SAT 98; BMI 33.6
--- NOTE | 2025-01-12 16:47 | EX.ED.GENINJ ---
HPI History of Present Illness Chief Complaint: Head Injury Informant: patient Narrative Narrative: 79-year-old female on Eliquis for atrial fibrillation presenting to the emergency room with head injury. Patient states she was in the shower. Showerhead which is large and heavy and is held up by a magnet fell and struck her in the head. She states that she was dazed and saw black for a second. She states that the injury caused her to lose control of her bowels. She states that the injury happened about 2-1/2 hours before the examination. No vomiting. She notes a hematoma to the back of her head. She denies any neck pain. She states that she feels fine but after speaking with several family members she decided to be seen. 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 Arthritis Obesity Hyperlipidemia Vulvar dermatitis Lichen sclerosus Diabetes Sarcoidosis Spleen anomaly Splenomegaly History of blood clots Sleep apnea Hemorrhoids BMI 36.0-36.9,adult History of PSVT (paroxysmal supraventricular tachycardia) Home Medications ?Medication ?Instructions ?Recorded ?Last Taken ?Type paroxetine HCl 20 mg tablet (Paxil) 20 mg PO BID DEPRESSION 04/03/16 10/28/20 History verapamil 80 mg tablet 80 mg PO BID HEART 04/03/16 10/28/20 History cranberry fruit concentrate 250 mg 250 mg PO TID supplement 06/05/19 10/28/20 History chewable tablet (Azo Cranberry) metformin 500 mg tablet 500 mg PO BID blood sugar 06/05/19 10/28/20 History Held on 12/18/22. Instructions: Hold for 1 day. naproxen 500 mg tablet 500 mg PO BID pain 06/05/19 10/28/20 History Held on 12/18/22. Instructions: Hold it while patient taking dual antiplatelet agent gabapentin 400 mg capsule 400 mg PO BID nerve pain 10/29/20 10/28/20 History clorazepate dipotassium 7.5 mg 7.5 mg PO BID PRN Anxiety 09/09/21 Unknown History tablet (Tranxene T-Tab) fluticasone propionate 50 1 spray intranasal DAILY 09/09/21 Unknown History mcg/actuation nasal spray,suspension (Flonase Allergy Relief) diazepam 5 mg tablet 5 mg PO Q8 PRN Muscle Spasm #12 05/03/22 Unknown Rx tabs clobetasol 0.05 % topical cream 1 applic topical DAILY 12/16/22 Unknown History rosuvastatin 5 mg tablet (Crestor) 10 mg (2 x 5 mg) PO DAILY 12/18/22 Unknown Rx cholesterol #30 tabs apixaban 5 mg tablet (Eliquis) 5 mg PO BID 30 days #60 tabs 12/19/22 Unknown Rx meclizine 25 mg tablet 25 mg PO 4X/DAY PRN PRN Dizziness 02/19/23 Unknown Rx #6 tabs ondansetron 4 mg disintegrating 4 mg PO Q4H PRN PRN Nausea #10 tabs 02/19/23 Unknown Rx tablet Allergy/AdvReac Type Severity Reaction Status Date / Time lidocaine Allergy Intermediate tachycardia Verified 06/23/23 10:34 Penicillins Allergy Hives Verified 06/23/23 10:34 atorvastatin AdvReac Pain in Verified 06/23/23 10:34 joints hydrocodone bitartrate (From AdvReac Vomiting Verified 06/23/23 10:34 Vicodin) oxycodone HCl (From Percocet) AdvReac Vomiting Verified 06/23/23 10:34 Family History Daughter Hypertension Father Heart disease Mother Dementia Surgical History History of breast biopsy H/O splenectomy History of hysterectomy Social History Smoking Status: Never smoker alcohol intake: current details: social substance use type: does not use caffeine: Yes what type of physical activity do you participate in: walking seatbelt use: always do you feel safe at home: Yes 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 ROS ROS ED Constitutional Constitutional ED: Denies chills, fever(s) or weight loss Eyes Eyes: Denies change in vision or diplopia ENT ENT ED: Denies ear pain, rhinorrhea or sore throat Cardiovascular Cardiovascular: Denies chest pain, orthopnea, palpitations or racing heartbeat Respiratory/Chest Respiratory/Chest: Denies cough, dyspnea or orthopnea Gastrointestinal Gastrointestinal: Denies abdominal pain, diarrhea, nausea or vomiting Genitourinary Genitourinary ED: Denies dysuria, hematuria or urinary frequency Musculoskeletal Musculoskeletal: Denies arthralgias or myalgias Integumentary Reports other Details: Scalp hematoma ; Denies abscess or rash Neurologic Neurologic: Reports headache(s); Denies weakness Psychiatric Psychiatric: Denies anxiety, depression, suicidal ideation or suicidal thoughts Endocrine Endocrinology: Denies polydipsia, polyphagia or polyuria Allergic/Immunologic Allergic/Immunologic ED: Denies mouth swelling, tongue swelling or urticaria EXAM Physical Exam Const Vital Signs: 01/12/25 15:56 01/12/25 17:32 Temperature 98.1 F Temperature Source Temporal Pulse Rate 92 Respiratory Rate 19 H Respiratory Effort Normal Respiratory Depth Normal Respiratory Pattern Normal Blood Pressure 153/74 H Blood Pressure Mean 100 Pulse Ox 98 96 Oxygen Delivery Method Room Air Room Air Positive well nourished and well developed General Appearance ED: well developed HEENT Reports normocephalic and moist mucous membranes HEENT Narrative: There is a small high occipital scalp hematoma. No palpable bony depression. Mild tenderness to palpation. Eyes PERRL and EOMs intact bilaterally Neck no lymphadenopathy, supple and no JVD Resp normal respiratory effort and clear to auscultation bilaterally Cardio regular rate, regular rhythm and no murmurs GI normal to inspection, nondistended, normoactive bowel sounds and non-tender Palpation: soft Back/Spine no CVA tenderness and normal ROM Extremity normal to inspection General Extremety ED: Negative for edema General Extremity: Negative for edema Neuro oriented x3 and CN's II-XII intact bilaterally Tamika Coma Scale: document GCS findings Spontaneous Obeys Commands Oriented 15 Sensorium / Orientation: alert Motor Exam: strength 5/5 throughout Psych mental status grossly normal Mood & Affect: Negative for depressed or tearful Skin no rashes or lesions noted and no wounds MDM MDM MDM Narrative Medical decision making narrative: Differential diagnosis includes but not limited to scalp hematoma scalp laceration/abrasion skull fracture intracranial hemorrhage concussion CT of the brain was obtained. This is negative for intracranial hemorrhage and fracture. Patient be discharged home with precautions. Return if worsening or concerns. History & Record Review Discussion w/independent historian: Patient Radiography Diagnostic Testing: Clinical Impression(s) from Imaging Studies Brain CT 01/12/25 16:50 IMPRESSION: CHRONIC CHANGES. NO ACUTE FINDINGS. Reading Location: [facility] Discharge Plan Triage Chief Complaint: Head Injury ED Provider: Nate Hanson Dx/Rx/DC Orders Clinical Impression: Hematoma of scalp, Anticoagulated Instructions: ED Concussion, ED Head Injury (Adult) Prescriptions: No Action naproxen 500 mg tablet 500 mg PO BID Azo Cranberry 250 mg tablet,chewable 250 mg PO TID metformin 500 mg tablet 500 mg PO BID fluticasone propionate [Flonase Allergy Relief] 50 mcg/actuation spray,suspension 1 spray intranasal DAILY Rx Instructions: administer into each nostril clorazepate dipotassium [Tranxene T-Tab] 7.5 mg tablet 7.5 mg PO BID PRN (Reason: Anxiety) paroxetine HCl [Paxil] 20 MG tablet 20 mg PO BID verapamil 80 MG tablet 80 mg PO BID gabapentin 400 MG capsule 400 mg PO BID diazepam 5 mg tablet 5 mg PO Q8 PRN (Reason: Muscle Spasm) Qty: 12 0RF clobetasol 0.05 % cream 1 applic TOPICAL DAILY Rx Instructions: apply to vaginal area rosuvastatin [Crestor] 5 mg tablet 10 mg PO DAILY Qty: 30 0RF Rx Instructions: takes every other day if joint pain occurs Eliquis 5 mg Tablet 5 mg PO BID 30 Days Qty: 60 2RF meclizine [meclizine] 25 mg tablet 25 mg PO 4X/DAY PRN PRN (Reason: Dizziness) Qty: 6 0RF ondansetron [ondansetron] 4 mg tablet,disintegrating 4 mg PO Q4H PRN PRN (Reason: Nausea) Qty: 10 0RF Primary Care Provider: Edda Ruano Referrals: Edda Ruano MD [Primary Care Provider] - Print Language: Romanian
--- NOTE | 2025-01-12 16:50 | CT_ITS ---
PROCEDURE: BRAIN/HEAD WITHOUT CONTRAST 01/12/2025 REASON FOR EXAM: INJURY ON ELIQUIS TECHNIQUE: Head CT without intravenous contrast. Coronal and Sagittal reconstruction series were provided. One or more dose reduction techniques were used (e.g., Automated exposure control, adjustment of the mA and/or kV according to patient size, use of iterative reconstruction technique. FINDINGS: Brain: Low density in the periventricular white matter suggests mild chronic small vessel ischemic changes. CSF Spaces: Mild generalized cerebral atrophy Sinuses/Mastoids: Clear at visualized levels Bones: Unremarkable. CT/Brain/Head without Contrast IMPRESSION: CHRONIC CHANGES. NO ACUTE FINDINGS. Reading Location: [id number]
[2025-01-12 17:32] VITALS: O2SAT 96
--- NOTE | 2025-01-12 17:34 | ED.RN ---
PT WAS SHOWERING AND HER LARGE-MAGNETIC SHOWER HEAD FELL OFF AND HIT THE PT ON THE TOP OF HER HEAD AND IT HIT HER RIGHT FOOT; PT SAID HER VISION WENT BLACK FOR A FEW SECONDS. SHE WAS ABLE TO FINISH HER SHOWER AND GET OUT TO COME GET CHECKED OUT AFTER FRIENDS TOLD HER HE SHOULD.
== END 2025-01-12 17:53 | disposition home or self-care (01) ==
PROVIDERS: Emergency Provider Emergency Medicine; PCP Internal Medicine; Visit Provider Emergency Medicine
DX: S00.03XA Contusion of scalp, initial encounter (principal); I48.91 Unspecified atrial fibrillation; E11.9 Type 2 diabetes mellitus without complications; Z79.01 Long term (current) use of anticoagulants; E78.5 Hyperlipidemia, unspecified; I10 Essential (primary) hypertension; Z90.710 Acquired absence of both cervix and uterus; W22.8XXA Striking against or struck by other objects, initial encounter; Y92.091 Bathroom in other non-institutional residence as the place of occurrence of the external cause
CPT/HCPCS: 70450; 99282

== ENCOUNTER 2025-01-22 17:41 | Observation (INO) | payer MEDICARE, SELFPAY ==
[2025-01-22] VITALS (12 sets, daily range): BP systolic 112–162; BP diastolic 74–99; PULSE 80–93; RESP 13–20; TEMP 36.6–36.9; O2SAT 92–97; BMI 34.7; BMI 34.3
--- NOTE | 2025-01-22 17:54 | CT_ITS ---
EXAM: STROKE BRAIN/HEAD WITHOUT CONT CLINICAL HISTORY: 79 y/o F with NEURO DEFICIT, ACUTE, STROKE SUSPECTED. Symptoms of diplopia and superior left homonymous quadrant visual disturbance. COMPARISON: CT head 01/12/2025. TECHNIQUE: Routine CT imaging of the head without IV contrast. Additional multiplanar reformats were obtained. Dose reduction techniques were used including intermediate exposure control (AEC),iterative reconstruction technique, and/or mA and/or KV dose adjustments based on patient's size. FINDINGS: Mild cerebral and cerebellar atrophy with concordant prominence of the ventricles and subarachnoid spaces. Mild patchy supratentorial white matter hypodensities. Chronic lacunar type infarcts within the bilateral caudate heads, anterior limb of the right internal capsule and bilateral basal ganglia. The landa-white matter interfaces are otherwise maintained. No evidence of acute intracranial hemorrhage or herniation. The orbits, visualized paranasal sinuses and mastoids are unremarkable. No acute calvarial fracture or scalp hematoma. CT/STROKE Brain/Head without Cont IMPRESSION: 1. No acute intracranial finding. 2. Findings of chronic microvascular ischemic changes and age-related changes. Reading Location: [id number]
--- NOTE | 2025-01-22 17:54 | EKG12_ITS ---
Test Reason : STROKE Blood Pressure : */* mmHG Vent. Rate : 87 BPM Atrial Rate : 87 BPM P-R Int : 174 ms QRS Dur : 72 ms QT Int : 396 ms P-R-T Axes : 30 -12 68 degrees QTcB Int : 476 ms Normal sinus rhythm Inferior infarct , age undetermined Abnormal ECG Confirmed by ESTUARDO TOLEDO, THO ([id number]), content editor DAWSON LOVE ([id number]) on 01/24/2025 1:22:48 PM Referred By: Confirmed By: THO MARTE MD
--- NOTE | 2025-01-22 17:55 | CT_ITS ---
PROCEDURE: STROKE CTA HEAD AND NECK W/CON 01/22/2025 REASON FOR EXAM: NEURO DEFICIT, ACUTE, STROKE SUSPECTED TECHNIQUE: CTA imaging of the head and neck from the aortic arch to the skull vertex with out constrast and with intravenous contrast. Multiplanar and multisequence images were obtained. 3D post processing with reformations, Maximum intensity projection (MIPs) Volume rendering and Shaded surface rendering was provided. CONTRAST: Isovue 370 VOLUME: 100 mL One or more dose reduction techniques were used (e.g., Automated exposure control, adjustment of the mA and/or kV according to patient size, use of iterative reconstruction technique). RADIATION DOSE SUMMARY: CTDlvol: 40 mGy DLP: 730 mGycm COMPARISON: Same-day CT head, CT head 01/12/2025. FINDINGS: See same day CT head for discussion of nonvascular findings. Three-vessel aortic arch with mixed calcific plaque of the aortic arch and its branch vessels without focal stenosis or occlusion. Calcific plaque of the right vertebral artery off its origin resulting in mild focal stenosis. The left vertebral artery is widely patent and dominant. Calcific plaque of the bilateral cervical carotid and cervical ICAs without focal stenosis by NASCET criteria. Minimal calcific plaque of the right carotid siphon. The bilateral anterior, middle and posterior cerebral arteries are widely patent. No aneurysm or AVM. origin of the left MONUMENTAL STONEMASON. Major venous structures: Unremarkable. Other findings: Cervical spondylosis. Mild biapical atelectasis/scarring. CT/STROKE CTA Head AND Neck W/Con IMPRESSION: 1. No large vessel occlusion, AVM or aneurysm. 2. No stenosis of the cervical carotid arteries by NASCET criteria. Reading Location: [id number]
--- NOTE | 2025-01-22 17:56 | EDS_ITS ---
HPI History of Present Illness Chief Complaint: Syncope Detail of Chief Complaint: Vertigo and diplopia Informant: patient and spouse/S.O. Onset/Context/Timing Onset: Today (1709) Context: Sudden Onset Timing: Continuous Quality: Vertigo [facility]: [facility] Current Severity: Moderate Maximum Severity: Severe Worsened by: Nothing Relieved by: Nothing Associated Symptoms Associated Symptoms: Double vision and visual field cut Narrative Narrative: Patient is a 79-year-old woman. She has history of essential hypertension, abdominal aortic aneurysm, paroxysmal atrial fibrillation on Eliquis, prior stroke, vertigo due to cerebrovascular disease, right homonymous superior quadrantanopia. She was at the [facility] purchasing rental shoes when she developed abrupt onset of vertigo. She states she is never had vertigo like this before. She also has double vision. In light of this nurse was asked to have someone paged a stroke team. She is not a candidate for TNKase since she is on Eliquis. Patient has slight headache. She has trouble speech or swallowing. Denies paresthesia, anesthesia Medicus. Denies weakness in her upper or lower extremities. She does have difficulty walking. She has a history of difficulty walking as well. Her ability to ambulate is worse now. 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 Herpes simplex vulvovaginitis Arthritis Obesity Hyperlipidemia Vulvar dermatitis Lichen sclerosus Diabetes Sarcoidosis Spleen anomaly Splenomegaly History of blood clots Sleep apnea Hemorrhoids BMI 36.0-36.9,adult History of PSVT (paroxysmal supraventricular tachycardia) Home Medications ?Medication ?Instructions ?Recorded ?Last Taken ?Type paroxetine HCl 20 mg tablet (Paxil) 20 mg PO BID DEPRE SSION 04/03/16 10/28/20 History verapamil 80 mg tablet 80 mg PO BID HEART 04/03/16 10/28/20 History cranberry fruit concentrate 250 mg 250 mg PO TID suppl ement 06/05/19 10/28/20 History chewable tablet (Azo Cranberry) naproxen 500 mg tablet 500 mg PO BID pain 06/05/19 10/28/20 History Held on 12/18/22. Instructions: Hold it while patient taking dual antiplatelet agent gabapentin 400 mg capsule 400 mg PO BID nerve pain 11/1710/28/20 History fluticasone propionate 50 1 spray intranasal DAILY Unknown History mcg/actuation nasal spray,suspension (Flonase Allergy Relief) diazepam 5 mg tablet 5 mg PO Q8 PRN Muscle Spasm #12 05/03/22 Unknown Rx tabs apixaban 5 mg tablet (Eliquis) 5 mg PO BID 30 days #60 tabs 12/19/22 Unknown Rx meclizine 25 mg tablet 25 mg PO 4X/DAY PRN PRN Dizz iness 02/19/23 Unknown Rx #6 tabs ondansetron 4 mg disintegrating 4 mg PO Q4H PRN PRN Na usea #10 tabs 02/19/23 Unknown Rx tablet metformin 500 mg tablet,extended 500 mg PO BID 5 Unknown History release 24 hr rosuvastatin 10 mg tablet 10 mg PO DAILY 01/22/25 Unkn own History Allergy/AdvReac Type Severity Reaction Status Date / Time lidocaine Allergy Intermediate tachycardia Verified 06/23/23 10:34 Penicillins Allergy Hives Verified 06/23/23 10:34 atorvastatin AdvReac Pain in Verified 06/23/23 10:34 joints hydrocodone bitartrate (From AdvReac Vomiting Verified 06/23/23 10:34 Vicodin) oxycodone HCl (From Percocet) AdvReac Vomiting Verified 06/23/23 10:34 Family History Daughter Hypertension Father Heart disease Mother Dementia Surgical History History of breast biopsy H/O splenectomy History of hysterectomy Social History Smoking Status: Never smoker alcohol intake: current details: social substance use type: does not use caffeine: Yes what type of physical activity do you participate in: walking seatbelt use: always do you feel safe at home: Yes 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 ED Constitutional Constitutional ED: Denies chills, fever(s), subjective or sweats Eyes Eyes: Reports diplopia; Denies blurry vision or change in vision ENT ENT ED: Denies ear pain, rhinorrhea or sore throat Cardiovascular Cardiovascular: Denies chest pain, orthopnea, palpitations or paroxysmal nocturnal dyspnea Respiratory/Chest Respiratory/Chest: Denies cough, dyspnea, dyspnea on exertion, orthopnea or paroxysmal nocturnal dyspnea Gastrointestinal Gastrointestinal: Denies abdominal pain, nausea or vomiting Genitourinary Genitourinary ED: Denies dysuria, hematuria or urinary frequency Musculoskeletal Musculoskeletal: Denies arthralgias or myalgias Integumentary Denies rash Neurologic Neurologic: Reports headache(s); Denies paresthesias or weakness Endocrine Endocrinology: Denies cold intolerance or heat intolerance Hematologic/Lymphatic Hematologic/Lymphatic: Reports systems reviewed and no addt'l complaints, except as documented EXAM Physical Exam Const Vital Signs: 01/22/25 17:45 Temperature 98.0 F Temperature Source Oral Pulse Rate 90 Respiratory Rate 14 Blood Pressure 160/81 H Blood Pressure Mean 107 Pulse Ox 95 Oxygen Delivery Method Room Air Positive well nourished and well developed Constitutional Narrative: BMI is 34.7. Blood pressure slightly evaded 160/81. Patient looks slightly pale. General Appearance ED: well developed and pallor HEENT Reports moist mucous membranes HEENT Narrative: Head is atraumatic normocephalic. Ears normal. Nares patent. Negative for trauma or tenderness Eyes PERRL Eyes Narrative: There is no nystagmus or central gaze. However, she reports diplopia. She states when it started she had triple vision . General Eye ED: Negative for pale conjunctiva or scleral icterus Neck no lymphadenopathy, supple and no JVD Resp normal respiratory effort and clear to auscultation bilaterally Cardio regular rate, regular rhythm, S1 normal heart sound, S2 normal heart sound and no murmurs GI normal to inspection, nondistended, normoactive bowel sounds, non-tender, non- distended and no masses; Negative for hepatosplenomegaly Back/Spine no CVA tenderness Extremity normal to inspection General Extremety ED: Negative for edema or tenderness General Extremity: Negative for edema Neuro oriented x3, CN's II-XII intact bilaterally and no sensory deficits noted Neuro Narrative: There is no dysmetria. He will ramsey was performed adequately. 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 With patient of diplopia and visual field cut this is central and consistent with stroke. Patient is not a candidate for TNK because she is on Eliquis for paroxysmal a trial fibrillation. Will open another EMR to document NIH since this document does not have a NIH score score or all the other appropriate documentations necessary. Radiography Diagnostic Testing: C-minus of the head per my review reveals no evidence of bleed. There is no sinus pathology. There is no asymmetry noted. Awaiting formal read by radiologist. As previously noted patient is not a candidate for TNKase since she is on Eliquis. Discharge Plan Triage Chief Complaint: Syncope ED Provider: Alejandro Chaudhari Dx/Rx/DC Orders Prescriptions: No Action naproxen 500 mg tablet 500 mg PO BID Azo Cranberry 250 mg tablet,chewable 250 mg PO TID fluticasone propionate [Flonase Allergy Relief] 50 mcg/actuation spray,suspension 1 spray intranasal DAILY Rx Instructions: administer into each nostril paroxetine HCl [Paxil] 20 MG tablet 20 mg PO BID verapamil 80 MG tablet 80 mg PO BID gabapentin 400 MG capsule 400 mg PO BID diazepam 5 mg tablet 5 mg PO Q8 PRN (Reason: Muscle Spasm) Qty: 12 0RF Eliquis 5 mg Tablet 5 mg PO BID 30 Days Qty: 60 2RF meclizine [meclizine] 25 mg tablet 25 mg PO 4X/DAY PRN PRN (Reason: Dizziness) Qty: 6 0RF ondansetron [ondansetron] 4 mg tablet,disintegrating 4 mg PO Q4H PRN PRN (Reason: Nausea) Qty: 10 0RF metformin 500 mg tablet extended release 24 hr 500 mg PO BID rosuvastatin 10 mg tablet 10 mg PO DAILY Primary Care Provider: Edda Ruano
--- NOTE | 2025-01-22 17:56 | EX.ED.DYSGE1 ---
HPI History of Present Illness Chief Complaint: Syncope Detail of Chief Complaint: Vertigo and diplopia Informant: patient and spouse/S.O. Onset/Context/Timing Onset: Today (1709) Context: Sudden Onset Timing: Continuous Quality: Vertigo [facility]: [facility] Current Severity: Moderate Maximum Severity: Severe Worsened by: Nothing Relieved by: Nothing Associated Symptoms Associated Symptoms: Double vision and visual field cut Narrative Narrative: Patient is a 79-year-old woman. She has history of essential hypertension, abdominal aortic aneurysm, paroxysmal atrial fibrillation on Eliquis, prior stroke, vertigo due to cerebrovascular disease, right homonymous superior quadrantanopia. [facility] when she developed abrupt onset of vertigo. She states she is never had vertigo like this before. She also has double vision. In light of this nurse was asked to have someone paged a stroke team. She is not a candidate for TNKase since she is on Eliquis. Patient has slight headache. She has trouble speech or swallowing. Denies paresthesia, anesthesia Medicus. Denies weakness in her upper or lower extremities. She does have difficulty walking. She has a history of difficulty walking as well. Her ability to ambulate is worse now. 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 Arthritis Obesity Hyperlipidemia Vulvar dermatitis Lichen sclerosus Diabetes Sarcoidosis Spleen anomaly Splenomegaly History of blood clots Sleep apnea Hemorrhoids BMI 36.0-36.9,adult History of PSVT (paroxysmal supraventricular tachycardia) Home Medications ?Medication ?Instructions ?Recorded ?Last Taken ?Type paroxetine HCl 20 mg tablet (Paxil) 40 mg PO DAILY DEPRESSION 04/03/16 01/22/25 History verapamil 80 mg tablet 80 mg PO BID HEART 04/03/16 01/22/25 History gabapentin 400 mg capsule 400 mg PO TID nerve pain 10/29/20 01/22/25 History fluticasone propionate 50 1 spray intranasal DAILY 09/09/21 01/21/25 History mcg/actuation nasal spray,suspension (Flonase Allergy Relief) apixaban 5 mg tablet (Eliquis) 5 mg PO BID 30 days #60 tabs 12/19/22 01/22/25 Rx biotin 1 mg capsule 1 mg PO DAILY 01/22/25 01/22/25 History cholecalciferol (vitamin D3) 50 50 mcg PO DAILY 01/22/25 01/22/25 History mcg (2,000 unit) tablet (Thera-D) magnesium 250 mg tablet 250 mg PO DAILY 01/22/25 01/22/25 History meclizine 25 mg tablet 25 mg PO 4X/DAY PRN Dizziness 01/22/25 Unknown History mecobalamin (vitamin B12) 1,000 1,000 mcg PO DAILY 01/22/25 01/22/25 History mcg lozenges metformin 500 mg tablet,extended 500 mg PO BID 01/22/25 01/22/25 History release 24 hr multivitamin (Multiple Vitamins 1 tab PO DAILY 01/22/25 01/22/25 History tablet) paroxetine HCl 20 mg tablet 10 mg PO QHS 01/22/25 01/21/25 History rosuvastatin 10 mg tablet 10 mg PO DAILY 01/22/25 01/21/25 History Allergy/AdvReac Type Severity Reaction Status Date / Time lidocaine Allergy Intermediate tachycardia Verified 06/23/23 10:34 Penicillins Allergy Hives Verified 06/23/23 10:34 atorvastatin AdvReac Pain in Verified 06/23/23 10:34 joints hydrocodone bitartrate (From AdvReac Vomiting Verified 06/23/23 10:34 Vicodin) oxycodone HCl (From Percocet) AdvReac Vomiting Verified 06/23/23 10:34 Family History Daughter Hypertension Father Heart disease Mother Dementia Surgical History History of breast biopsy H/O splenectomy History of hysterectomy Social History Smoking Status: Never smoker alcohol intake: current details: social substance use type: does not use caffeine: Yes what type of physical activity do you participate in: walking seatbelt use: always do you feel safe at home: Yes 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 ED Constitutional Constitutional ED: Denies chills, fever(s), subjective or sweats Eyes Eyes: Reports diplopia; Denies blurry vision or change in vision ENT ENT ED: Denies ear pain, rhinorrhea or sore throat Cardiovascular Cardiovascular: Denies chest pain, orthopnea, palpitations or paroxysmal nocturnal dyspnea Respiratory/Chest Respiratory/Chest: Denies cough, dyspnea, dyspnea on exertion, orthopnea or paroxysmal nocturnal dyspnea Gastrointestinal Gastrointestinal: Denies abdominal pain, nausea or vomiting Genitourinary Genitourinary ED: Denies dysuria, hematuria or urinary frequency Musculoskeletal Musculoskeletal: Denies arthralgias or myalgias Integumentary Denies rash Neurologic Neurologic: Reports headache(s); Denies paresthesias or weakness Endocrine Endocrinology: Denies cold intolerance or heat intolerance Hematologic/Lymphatic Hematologic/Lymphatic: Reports systems reviewed and no addt'l complaints, except as documented EXAM Physical Exam Const Vital Signs: 01/22/25 17:45 01/22/25 17:48 01/22/25 17:54 Temperature 98.0 F Temperature Source Oral Pulse Rate 90 Respiratory Rate 14 Respiratory Effort Normal Respiratory Pattern Normal Blood Pressure 160/81 H Blood Pressure Mean 107 Pulse Ox 95 Oxygen Delivery Method Room Air Room Air 01/22/25 18:09 01/22/25 18:24 01/22/25 19:00 Temperature 98.1 F Temperature Source Oral Pulse Rate 93 85 83 Respiratory Rate 20 H 16 14 Respiratory Effort Respiratory Pattern Blood Pressure 156/93 H 143/86 H 144/81 H Blood Pressure Mean 114 105 102 Pulse Ox 95 93 94 Oxygen Delivery Method Room Air Room Air Room Air 01/22/25 19:30 01/22/25 20:00 01/22/25 20:13 Temperature 98.4 F 98.4 F Temperature Source Oral Pulse Rate 85 92 90 Respiratory Rate 20 H 17 18 Respiratory Effort Respiratory Pattern Blood Pressure 139/77 H 162/87 H 162/87 H Blood Pressure Mean 97 112 112 Pulse Ox 93 92 95 Oxygen Delivery Method Room Air Room Air Positive well nourished and well developed Constitutional Narrative: BMI is 34.7. Blood pressure slightly evaded 160/81. Patient looks slightly pale. General Appearance ED: well developed and pallor HEENT Reports moist mucous membranes HEENT Narrative: Head is atraumatic normocephalic. Ears normal. Nares patent. Negative for trauma or tenderness Eyes PERRL Eyes Narrative: There is no nystagmus or central gaze. However, she reports diplopia. She states when it started she had triple vision . General Eye ED: Negative for pale conjunctiva or scleral icterus Neck no lymphadenopathy, supple and no JVD Resp normal respiratory effort and clear to auscultation bilaterally Cardio regular rate, regular rhythm, S1 normal heart sound, S2 normal heart sound and no murmurs GI normal to inspection, nondistended, normoactive bowel sounds, non-tender, non-distended and no masses; Negative for hepatosplenomegaly Back/Spine no CVA tenderness Extremity normal to inspection General Extremety ED: Negative for edema or tenderness General Extremity: Negative for edema Neuro oriented x3, CN's II-XII intact bilaterally and no sensory deficits noted Neuro Narrative: There is no dysmetria. He will ramsey was performed adequately. 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 With patient of diplopia and visual field cut this is central and consistent with stroke. Patient is not a candidate for TNK because she is on Eliquis for paroxysmal atrial fibrillation. Will open another EMR to document NIH since this document does not have a NIH score score or all the other appropriate documentations necessary. Lab Data Labs: Laboratory Results - last 24 hr 01/22/25 01/22/25 17:20 18:10 WBC 13.5 H RBC 4.37 Hgb 13.7 Hct 41.0 MCV 93.8 MCH 31.4 MCHC 33.4 RDW Std Deviation 55.5 H RDW Coeff of Kadi 16.2 H Plt Count 386 MPV 11.5 Immature Gran % (Auto) 0.300 Neut % (Auto) 39.9 L Lymph % (Auto) 46.6 H Piute % (Auto) 12.1 H Eos % (Auto) 0.8 Baso % (Auto) 0.3 Absolute Neuts (auto) 5.4 Absolute Lymphs (auto) 6.29 H Nucleated RBC % 0 PT 16.2 H INR 1.3 APTT 26.8 Sodium 136 Potassium 4.0 Chloride 99 Carbon Dioxide 23.2 Anion Gap 14 BUN 11 Creatinine 0.85 Estim Creat Clear Calc 54.29 Est GFR (MDRD) Non-Af 70 BUN/Creatinine Ratio 13.0 Glucose 102 H Calcium 9.7 Troponin T High Sens 8 POC Glucose 97 Radiography Diagnostic Testing: Clinical Impression(s) from Imaging Studies Brain CT 01/22/25 17:54 IMPRESSION: 1. No acute intracranial finding. 2. Findings of chronic microvascular ischemic changes and age-related changes. Reading Location: [facility] Head/Neck CTA 01/22/25 17:55 IMPRESSION: 1. No large vessel occlusion, AVM or aneurysm. 2. No stenosis of the cervical carotid arteries by NASCET criteria. Reading Location: [facility] C-minus of the head per my review reveals no evidence of bleed. There is no sinus pathology. There is no asymmetry noted. Awaiting formal read by radiologist. As previously noted patient is not a candidate for TNKase since she is on Eliquis. Discharge Plan Dx/Rx/DC Orders Clinical Impression: Vertigo of central origin, Diplopia, Left homonymous superior quadrantanopia, Anticoagulant long-term use, Hyperlipidemia, Elevated blood pressure reading with diagnosis of hypertension, Adult BMI 34.0-34.9 kg/sq m Disposition Disposition: Acute Care Hospital [facility]
--- NOTE | 2025-01-22 18:05 | EDS_ITS ---
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 Herpes simplex vulvovaginitis Arthritis Obesity Hyperlipidemia Vulvar dermatitis Lichen sclerosus Diabetes Sarcoidosis Spleen anomaly Splenomegaly History of blood clots Sleep apnea Hemorrhoids BMI 36.0-36.9,adult History of PSVT (paroxysmal supraventricular tachycardia) Home Medications ?Medication ?Instructions ?Recorded ?Last Taken ?Type paroxetine HCl 20 mg tablet (Paxil) 40 mg PO DAILY DEP RESSION 04/03/16 01/22/25 History verapamil 80 mg tablet 80 mg PO BID HEART 04/03/16 01/22/25 History gabapentin 400 mg capsule 400 mg PO TID nerve pain 11/1701/22/25 History fluticasone propionate 50 1 spray intranasal DAILY 01/21/25 History mcg/actuation nasal spray,suspension (Flonase Allergy Relief) apixaban 5 mg tablet (Eliquis) 5 mg PO BID 30 days #60 tabs 12/19/22 01/22/25 Rx biotin 1 mg capsule 1 mg PO DAILY 01/22/2501/22 History cholecalciferol (vitamin D3) 50 50 mcg PO DAILY 01/22/25 History mcg (2,000 unit) tablet (Thera-D) magnesium 250 mg tablet 250 mg PO DAILY 01/22/25 History meclizine 25 mg tablet 25 mg PO 4X/DAY PRN Dizzines s 01/22/25 Unknown History mecobalamin (vitamin B12) 1,000 1,000 mcg PO DAILY 01/22/25 History mcg lozenges metformin 500 mg tablet,extended 500 mg PO BID 5 01/22/25 History release 24 hr multivitamin (Multiple Vitamins 1 tab PO DAILY 5 01/22/25 History tablet) paroxetine HCl 20 mg tablet 10 mg PO QHS 01/22/2512/27 History rosuvastatin 10 mg tablet 10 mg PO DAILY 01/22/2512/27 History Allergy/AdvReac Type Severity Reaction Status Date / Time lidocaine Allergy Intermediate tachycardia Verified 06/23/23 10:34 Penicillins Allergy Hives Verified 06/23/23 10:34 atorvastatin AdvReac Pain in Verified 06/23/23 10:34 joints hydrocodone bitartrate (From AdvReac Vomiting Verified 06/23/23 10:34 Vicodin) oxycodone HCl (From Percocet) AdvReac Vomiting Verified 06/23/23 10:34 Family History Daughter Hypertension Father Heart disease Mother Dementia Surgical History History of breast biopsy H/O splenectomy History of hysterectomy Social History Smoking Status: Never smoker alcohol intake: current details: social substance use type: does not use caffeine: Yes what type of physical activity do you participate in: walking seatbelt use: always do you feel safe at home: Yes 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 Physical Exam Const Vital Signs: 01/22/25 17:45 01/22/25 17:48 01/22/25 17:54 Temperature 98.0 F Temperature Source Oral Pulse Rate 90 Respiratory Rate 14 Respiratory Effort Normal Respiratory Pattern Normal Blood Pressure 160/81 H Blood Pressure Mean 107 Pulse Ox 95 Oxygen Delivery Method Room Air Room Air 01/22/25 18:09 01/22/25 18:24 01/22/25 19:00 Temperature 98.1 F Temperature Source Oral Pulse Rate 93 85 83 Respiratory Rate 20 H 16 14 Respiratory Effort Respiratory Pattern Blood Pressure 156/93 H 143/86 H 144/81 H Blood Pressure Mean 114 105 102 Pulse Ox 95 93 94 Oxygen Delivery Method Room Air Room Air Room Air 01/22/25 19:30 Temperature 98.4 F Temperature Source Oral Pulse Rate 85 Respiratory Rate 20 H Respiratory Effort Respiratory Pattern Blood Pressure 139/77 H Blood Pressure Mean 97 Pulse Ox 93 Oxygen Delivery Method Room Air [facility] Lab Data Attestation: I reviewed the patient's lab results. Lab results narrative: White count is elevated 13.5 thousand there is a predominant lymphocytes. Electrolyte panel is unremarkable. Troponin is normal. Labs: Laboratory Results - last 24 hr 01/22/25 01/22/25 17:20 18:10 WBC 13.5 H RBC 4.37 Hgb 13.7 Hct 41.0 MCV 93.8 MCH 31.4 MCHC 33.4 RDW Std Deviation 55.5 H RDW Coeff of Kadi 16.2 H Plt Count 386 MPV 11.5 Immature Gran % (Auto) 0.300 Neut % (Auto) 39.9 L Lymph % (Auto) 46.6 H Bandera % (Auto) 12.1 H Eos % (Auto) 0.8 Baso % (Auto) 0.3 Absolute Neuts (auto) 5.4 Absolute Lymphs (auto) 6.29 H Nucleated RBC % 0 PT 16.2 H INR 1.3 APTT 26.8 Sodium 136 Potassium 4.0 Chloride 99 Carbon Dioxide 23.2 Anion Gap 14 BUN 11 Creatinine 0.85 Estim Creat Clear Calc 54.29 Est GFR (MDRD) Non-Af 70 BUN/Creatinine Ratio 13.0 Glucose 102 H Calcium 9.7 Troponin T High Sens 8 POC Glucose 97 Radiography Diagnostic Testing: Clinical Impression(s) from Imaging Studies Brain CT 01/22/25 17:54 IMPRESSION: 1. No acute intracranial finding. 2. Findings of chronic microvascular ischemic changes and age-related changes. Reading Location: [facility] Head/Neck CTA 01/22/25 17:55 IMPRESSION: 1. No large vessel occlusion, AVM or aneurysm. 2. No stenosis of the cervical carotid arteries by NASCET criteria. Reading Location: [facility] CT minus head was independent reviewed interpreted by me. There is evidence of small vessel disease. CTA was done by radiology as no large vessel occlusion, AVM or aneurysm. There is no stenosis of the cervical carotid arteries by NASCET criteria. Management Discussion w/another healthcare provider: Hospitalist and Wheel Borer Treatment and Re-Evaluation Narrative: In light of patient's symptoms and after discussion with [facility] neurologist Dr. Waters plan is PCU observation with stroke workup especially since she has multiple risk factors. The hospitalist was paged. The hospitalist receiving is Dr. Fernandes. Discharge Plan Triage Chief Complaint: Syncope ED Provider: Alejandro Chaudhari Dx/Rx/DC Orders Clinical Impression: Vertigo of central origin, Diplopia, Left homonymous superior quadrantanopia, Anticoagulant long-term use Prescriptions: No Action fluticasone propionate [Flonase Allergy Relief] 50 mcg/actuation spray,suspension 1 spray intranasal DAILY Rx Instructions: administer into each nostril paroxetine HCl [Paxil] 20 MG tablet 40 mg PO DAILY Rx Instructions: AM WITH 10 MG HS verapamil 80 MG tablet 80 mg PO BID gabapentin 400 MG capsule 400 mg PO TID Eliquis 5 mg Tablet 5 mg PO BID 30 Days Qty: 60 2RF metformin 500 mg tablet extended release 24 hr 500 mg PO BID rosuvastatin 10 mg tablet 10 mg PO DAILY mecobalamin (vitamin B12) 1,000 mcg lozenge 1,000 mcg PO DAILY Rx Instructions: allow to dissolve in mouth OR may chew lightly before swallowing magnesium 250 mg tablet 250 mg PO DAILY multivitamin [Multiple Vitamins] Tablet 1 tab PO DAILY biotin 1 mg capsule 1 mg PO DAILY cholecalciferol (vitamin D3) [Thera-D] 50 mcg (2,000 unit) tablet 50 mcg PO DAILY meclizine 25 mg tablet 25 mg PO 4X/DAY PRN paroxetine HCl 20 mg tablet 10 mg PO QHS Primary Care Provider: Edda Ruano Referrals: Edda Ruano MD [Primary Care Provider] - Print Language: Bengali Disposition Disposition: Acute Care Hospital [facility] NIHSS NIHSS 1a. Level of Consciousness: 0 - Alert; keenly responsive 1b. LOC Questions: 0 - Answers BOTH questions correctly 1c. LOC Commands: 0 - Performs BOTH tasks correctly 2. Best Gaze: 0 - Normal 3. Visual: 1 - Partial hemianopia 4. Facial Palsy: 0 - Normal symmetrical movements 5a. Left Arm: 0 - No drift; arm holds 90 (or 45) degrees for full 10 seconds 5b. Right Arm: 0 - No drift; arm holds 90 (or 45) degrees for full 10 seconds 6a. Left Le - No drift; leg holds 30-degree position for full 5 seconds 6b. Right Le - No drift; leg holds 30-degree position for full 5 seconds 7. Limb Ataxia: 0 - Absent 8. Sensory: 0 - Normal; no sensory loss 9. Best Language: 0 - No aphasia; normal 10. Dysarthria: 0 - Normal 11. Extinction and Inattention: 0 - No abnormality Total: 1 Stroke Questions Stroke Team Activated: Yes Reviewed Inclusion/Exclusion criteria: Yes IV Thrombolytic Administered: No (Patient is on Eliquis.) No contraindications from thrombolytic administration: No
[2025-01-22 18:21] LABS: Absolute Lymphocyte Count 6.29 X10^3/uL (0.83-4.51); Absolute Neutrophil Count 5.4 X10^3/uL (2.0-7.7); Basophil# 0.04 X10^3/uL; Basophil% 0.3 % (0-1); Eosinophil# 0.11 X10^3/uL; Eosinophils% 0.8 % (0-5); Hemoglobin 13.7 g/dL (12.0-15.0); Lymphocyte # 6.29 X10^3/ul (0.83-4.51); Lymphocyte % 46.6 % (19-41); Mean Corp Hgb Conc 33.4 g/dL (32-36); Mean Corpuscular Hgb 31.4 pg (27.0-32.0); Mean Corpuscular Volume 93.8 fL (81-99); Mean Platelet Vol. 11.5 fl (6.2-12.0); Monocyte# 1.63 X10^3/uL; Monocyte% 12.1 % (0-10); NRBC Flagged by Analyzer 0 % (0-5); Neutrophil # 5.38 X10^3/uL (2.7-7.7); Neutrophil % 39.9 % (47-70); POSITIVE DIFFERENTIAL YES; POSITIVE MORPHOLOGY YES; Platelet Count 386 K/mm3 (150-450); RBC Distribution Width CV 16.2 % (11.6-14.6); RBC Distribution Width SD 55.5 fl (35.1-43.9); Red Blood Count 4.37 M/mm3 (4.2-5.4); White Blood Count 13.5 K/mm3 (4.4-11.0)
[2025-01-22 18:28] LABS: Bedside Glucose 97 mg/dL (74-106)
[2025-01-22 18:38] LABS: Anion Gap 14 (5-15); BUN 11 mg/dL (4-19); Calcium,Total 9.7 mg/dL (7.6-11.0); Carbon Dioxide 23.2 mmol/L (21.0-32.0); Chloride 99 mmol/L (98-108); Creatinine, Serum 0.85 mg/dL (0.70-1.20); EST Glomerular Filtration Rate 70 (>60); Estimated Creatinine Clearance 54.29 ml/min (50-250); Glucose 102 mg/dL (70-99); Sodium Level 136 mmol/L (133-145); Troponin T High Sensitivity 8 ng/L (<=14)
--- NOTE | 2025-01-22 19:09 | CM.ED ---
Social work Reason for referral: stroke alert This SW responded to stroke alert called in [facility] ED. Patient was being wheeled out of the room for imaging and patient's significant other, Walter, was bedside. SW introduced self and role at [facility] and Walter accepted SW visit. Walter stated patient has been through a stroke before. Walter stated Walter and patient have been together for 18-19 years though are no longer . Walter stated not needing anything at this time. Active listening and supportive presence provided. Lena Yousif, CORRECTION LIEUTENANT, RENTAL CAR FERRY DRIVER
[2025-01-22 19:14] LABS: Differential Indicated SCAN CRITERIA MET
[2025-01-22 19:28] LABS: International Normalized Ratio 1.3; Prothrombin Time (Protime)PT. 16.2 SECONDS (11.7-14.9)
[2025-01-22 19:29] LABS: Partial Thromboplast Time 26.8 Seconds (24.1-36.2)
[2025-01-22 20:37] LABS: Platelet Estimate ADEQUATE (ADEQ)
--- NOTE | 2025-01-22 20:46 | PCM.HP.STD ---
HPI - General General Date of Admission: 01/22/25 Date of Service: 01/22/25 Chief Complaint: acute change in sensorium HPI Narrative FARIDA JHAVERI, is a 79 F who presents to the emergency room after an acute onset of vertigo which began while the patient was purchasing rental shoes at the [facility]. Patient states she has never had severe vertigo like this happen to her before. She complained of double vision at the time. Patient was sent to the emergency room and a stroke team was called. She was not deemed a candidate for TNKase due to currently being on Eliquis. She does have a significant history of essential hypertension, abdominal aortic aneurysm, paroxysmal atrial fibrillation for which she takes Eliquis, prior stroke, vertigo previously with cerebrovascular accident and right homonymous superior quadrantanopia. Patient currently has a slight headache with and has no trouble speaking or swallowing during my evaluation. She denies paresthesia or weakness of her upper extremities or lower extremities. She does have a history of walking difficulty but states her current ability is worse than usual. Her vertigo resolved after an hour of symptoms. In she is completely resolved at this time. She will be admitted for observation and MRI ordered according to telestroke consultation. 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 Herpes simplex vulvovaginitis Arthritis Obesity Hyperlipidemia Vulvar dermatitis Lichen sclerosus Diabetes Sarcoidosis Spleen anomaly Splenomegaly History of blood clots Sleep apnea Hemorrhoids BMI 36.0-36.9,adult History of PSVT (paroxysmal supraventricular tachycardia) Home Medications ?Medication ?Instructions ?Recorded ?Last Taken ?Type paroxetine HCl 20 mg tablet (Paxil) 40 mg PO DAILY DEPRESSION 04/03/16 01/22/25 History verapamil 80 mg tablet 80 mg PO BID HEART 04/03/16 01/22/25 History gabapentin 400 mg capsule 400 mg PO TID nerve pain 10/29/20 01/22/25 History fluticasone propionate 50 1 spray intranasal DAILY 09/09/21 01/21/25 History mcg/actuation nasal spray,suspension (Flonase Allergy Relief) apixaban 5 mg tablet (Eliquis) 5 mg PO BID 30 days #60 tabs 12/19/22 01/22/25 Rx biotin 1 mg capsule 1 mg PO DAILY 01/22/25 01/22/25 History cholecalciferol (vitamin D3) 50 50 mcg PO DAILY 01/22/25 01/22/25 History mcg (2,000 unit) tablet (Thera-D) magnesium 250 mg tablet 250 mg PO DAILY 01/22/25 01/22/25 History meclizine 25 mg tablet 25 mg PO 4X/DAY PRN Dizziness 01/22/25 Unknown History mecobalamin (vitamin B12) 1,000 1,000 mcg PO DAILY 01/22/25 01/22/25 History mcg lozenges metformin 500 mg tablet,extended 500 mg PO BID 01/22/25 01/22/25 History release 24 hr multivitamin (Multiple Vitamins 1 tab PO DAILY 01/22/25 01/22/25 History tablet) paroxetine HCl 20 mg tablet 10 mg PO QHS 01/22/25 01/21/25 History rosuvastatin 10 mg tablet 10 mg PO DAILY 01/22/25 01/21/25 History Allergy/AdvReac Type Severity Reaction Status Date / Time lidocaine Allergy Intermediate tachycardia Verified 06/23/23 10:34 Penicillins Allergy Hives Verified 06/23/23 10:34 atorvastatin AdvReac Pain in Verified 06/23/23 10:34 joints hydrocodone bitartrate (From AdvReac Vomiting Verified 06/23/23 10:34 Vicodin) oxycodone HCl (From Percocet) AdvReac Vomiting Verified 06/23/23 10:34 Family History Daughter Hypertension Father Heart disease Mother Dementia Surgical History History of breast biopsy H/O splenectomy History of hysterectomy Social History Smoking Status: Never smoker alcohol intake: current details: social substance use type: does not use caffeine: Yes what type of physical activity do you participate in: walking seatbelt use: always do you feel safe at home: Yes 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 Constitutional: Denies chills or fever(s) Eyes Eyes: Reports double vision ENT HEENT: Denies abnormal hearing Cardiovascular Cardiovascular: Denies chest pain Respiratory/Chest Respiratory/Chest: Denies cough Gastrointestinal Gastrointestinal: Denies abdominal pain Genitourinary Genitourinary: Denies dysuria Musculoskeletal Musculoskeletal: Denies back pain Integumentary Integumentary: Denies dry skin Neurologic Neurologic: Reports abnormal gait and sensory deficit Psychiatric Psychiatric: Denies anxiety Vital Signs Vital Signs Vital Signs: 01/22/25 17:45 01/22/25 17:48 01/22/25 17:54 Temperature 98.0 F Temperature Source Oral Pulse Rate 90 Respiratory Rate 14 Respiratory Effort Normal Respiratory Pattern Normal Blood Pressure 160/81 H Blood Pressure Mean 107 Pulse Ox 95 Oxygen Delivery Method Room Air Room Air 01/22/25 18:09 01/22/25 18:24 01/22/25 19:00 Temperature 98.1 F Temperature Source Oral Pulse Rate 93 85 83 Respiratory Rate 20 H 16 14 Respiratory Effort Respiratory Pattern Blood Pressure 156/93 H 143/86 H 144/81 H Blood Pressure Mean 114 105 102 Pulse Ox 95 93 94 Oxygen Delivery Method Room Air Room Air Room Air 01/22/25 19:30 01/22/25 20:00 01/22/25 20:13 Temperature 98.4 F 98.4 F Temperature Source Oral Pulse Rate 85 92 90 Respiratory Rate 20 H 17 18 Respiratory Effort Respiratory Pattern Blood Pressure 139/77 H 162/87 H 162/87 H Blood Pressure Mean 97 112 112 Pulse Ox 93 92 95 Oxygen Delivery Method Room Air Room Air Weight Weight: 183 lb 14.4 oz Body Mass Index (BMI) 34.7 Physical Exam Const alert, oriented x3 and no apparent distress General Appearance: cooperative and well developed HEENT normocephalic and head/scalp atraumatic Eyes PERRL and EOMs intact bilaterally Neck no lymphadenopathy General: trachea midline Lymph Lymphatic: no lymphadenopathy noted Resp normal respiratory effort, normal air movement and clear to auscultation bilaterally Cardio regular rate, regular rhythm, S1 normal heart sound and S2 normal heart sound GI normal to inspection, nondistended, normoactive bowel sounds Extremity normal capillary refill Skin General Skin Exam: no breakdown Neuro CN's II-XII intact bilaterally, no focal motor deficits and no sensory deficits noted Coordination / Balance: [id number] test normal Speech: speech normal Motor Exam: strength 5/5 throughout Psych thought process normal, cooperative and affect normal Appearance: appropriate Results Lab / Micro Data 01/22/25 17:20 01/22/25 17:20 Labs: Laboratory Results - last 24 hr 01/22/25 17:20: WBC 13.5 H, RBC 4.37, Hgb 13.7, Hct 41.0, MCV 93.8, MCH 31.4, MCHC 33.4, RDW Std Deviation 55.5 H, RDW Coeff of Kadi 16.2 H, Plt Count 386, MPV 11.5, Immature Gran % (Auto) 0.300, Neut % (Auto) 39.9 L, Lymph % (Auto) 46.6 H, Villalba % (Auto) 12.1 H, Eos % (Auto) 0.8, Baso % (Auto) 0.3, Absolute Neuts (auto) 5.4, Absolute Lymphs (auto) 6.29 H, Nucleated RBC % 0, Platelet Estimate ADEQUATE, PT 16.2 H, INR 1.3, APTT 26.8, Sodium 136, Potassium 4.0, Chloride 99, Carbon Dioxide 23.2, Anion Gap 14, BUN 11, Creatinine 0.85, Estim Creat Clear Calc 54.29, Est GFR (MDRD) Non-Af 70, BUN/Creatinine Ratio 13.0, Glucose 102 H, Calcium 9.7, Troponin T High Sens 8 01/22/25 18:10: POC Glucose 97 Imaging Radiology Impression Brain CT 01/22/25 17:54 IMPRESSION: 1. No acute intracranial finding. 2. Findings of chronic microvascular ischemic changes and age-related changes. Reading Location: [facility] Head/Neck CTA 01/22/25 17:55 IMPRESSION: 1. No large vessel occlusion, AVM or aneurysm. 2. No stenosis of the cervical carotid arteries by NASCET criteria. Reading Location: [facility] Assessment & Plan Assessment/Plan (1) Adult BMI 34.0-34.9 kg/sq m: (2) Elevated blood pressure reading with diagnosis of hypertension: (3) Anticoagulant long-term use: (4) Vertigo of central origin: PLAN: Plan 1 acute onset of vertigo suspect transient ischemic attack?admit patient for observation to progressive care unit, neurologic checks per routine, MRI in the a.m., CBC BMP, fasting lipid panel and echocardiogram to be done in the morning, patient is already on anticoagulation therapy 2. History of atrial fibrillation patient is on Eliquis and will continue to be so 3. Hypertension?continue antihypertensive medication 4. DVT prophylaxis?continue Eliquis patient is already on Charges/Coding Visit Charges OBSV E&M: 11468 Observ/hosp same date L2
[2025-01-22 20:52] LABS: Troponin T High Sens 2 HR 7 ng/L (<=14)
--- NOTE | 2025-01-22 21:22 | ECHOD_ITS ---
Reason For Study Reason For Study: TIA/CVA Procedure This was a 2D Doppler, Color Flow transthoracic echocardiogram. Exam performed portable in patient room. Left Ventricle Normal LV size. The estimated ejection fraction is 70 %. No evidence for diastolic dysfunction. No regional wall motion abnormalities noted. Right Ventricle Normal RV size. Normal systolic function. Atria The left and right atria are normal. No doppler evidence for ASD. Mitral Valve There is moderate mitral annular calcification. There is no mitral valve stenosis. No mitral valve insufficiency. Tricuspid Valve There is no tricuspid stenosis. Unable to estimate RV systolic pressure due to inadequate jet, pulmonary artery pressure probably normal. Aortic Valve Trisinus/trileaflet aortic valve. There is no aortic stenosis. Trivial aortic valve insufficiency. Pulmonic Valve There is no pulmonic valvular stenosis. No pulmonic valve insufficiency. Great Vessels Normal sized aortic root. Pericardium/Pleural No pericardial effusion. MMode/2D Measurements & Calculations LVIDd: 4.2 cm IVSd: 1.0 cm Ao root diam: 3.2 cm LVIDs: 2.8 cm LVPWd: 1.2 cm RVDd: 2.7 cm FS: 33.5 % LAV(MOD-bp): 19.1 ml LVAd ap4: 19.0 cm2 SV(MOD-sp4): 27.3 ml LAV(MOD-bp) Indexed: 10.5 ml/m2 LVLd ap4: 6.5 cm SI(MOD-sp4): 15.1 ml/m2 LAV(MOD-sp2): 17.5 ml EDV(MOD-sp4): 44.8 ml LAV(MOD-sp4): 19.8 ml EDV(sp4-el): 47.2 ml LVAs ap4: 10.3 cm2 LVLs ap4: 5.2 cm ESV(MOD-sp4): 17.5 ml ESV(sp4-el): 17.4 ml EF(MOD-sp4): 60.9 % EF(sp4-el): 63.2 % SV(sp4-el): 29.8 ml LA A4 area: 10.7 cm2 LA dimension(2D): 2.6 cm RA A4 area: 8.7 cm2 TAPSE: 1.8 cm Time Measurements MV dec time: 0.26 sec Doppler Measurements & Calculations MV E max tirso: 84.2 cm/sec Lat Peak E' Tirso: 9.3 cm/sec Med Peak E' Tirso: 6.9 cm/sec MV A max tirso: 118.3 cm/sec E/E' lat: 9.0 E/E' med: 12.1 MV E/A: 0.71 Ao V2 max: 115.0 cm/sec AI max tirso: 420.5 cm/sec LV V1 max: 108.3 cm/sec Ao max P.3 mmHg AI max P.7 mmHg LV V1 max P.7 mmHg AI dec slope: 237.5 cm/sec2 AI P1/2t: 518.7 msec PA V2 max: 105.0 cm/sec TR max tirso: 238.2 cm/sec TR max P.7 mmHg ECHO/Echo Complete Interpretation Summary The estimated ejection fraction is 70 %. No evidence for diastolic dysfunction. Trivial aortic valve insufficiency. Ordering Physician: Pablo Fernandes Referring Physician: YENIFER GONSLAEZ Performed By: Demetria Qiu RDCS
--- NOTE | 2025-01-22 21:22 | CASEMGMT ---
Care Management Face to Face with patient for initial transition planning/care coordination assessment in the ED. This tag writer introduced self and role at [facility]. Patient alert and oriented. Patient willing to participate in assessment and is able to answer all questions appropriately. Care providers, pharmacy, and demographics verified. Admitting Diagnosis: Elevated blood pressure reading with diagnosis of hypertension, Anticoagulant long-term use, Vertigo of central origin Other diagnosis history: essential hypertension, abdominal aortic aneurysm, paroxysmal atrial fibrillation, prior stroke, vertigo previously with cerebrovascular accident, and right homonymous superior quadrantanopia PCP: [facility] Specialists: Suleman, cardiology. Freya, orthopedic. (Had been active with a neurologist in [place] at the [facility], but reports having not gone in the last year and does not recall the name). Preferred Pharmacy: [facility] Insurance: [facility] Medicare Prescription Benefit: yes Living Will/HPOA: Elena Cervantes (primary). Ashlee Dupree (secondary). Tanisha Franco (tertiary). LNOK: Elena, daughter. Ashele, granddaughter. Living Arrangements: lives with ex-, Walter, and 25 year old great nephew (on the autism spectrum) with one step to enter. 2 story home, but first floor living. Independent with all ADLs/IADLs. Transportation: patient drives DME: walker, cane, grab bar, shower chair, CPAP, glucometer (states not knowing how many testing strips are left as patient reports not using this as patient should), pulse ox, blood pressure cuff. HHC: [facility] after surgeries. SNF/Rehab: none Community Resources: none Behavioral Health History: anxiety and depression, per chart Patient goals: Patient wishes to discharge home, denies need for home health care at this time. Patient denies any further needs or concerns at this time. Disposition Plan: admission to acute; RN CM/SW to follow for discharge planning needs that may arise. Lena Yousif, CELLULAR PLASTICS CUTTER, INSPECTOR ALIGNING
[2025-01-22 23:17] LABS: Troponin T High Sens 4 HR 13 ng/L (<=14)
[2025-01-22] MEDS: APIXABAN 5 MG TABLET PO (23:25)
[2025-01-22] MEDS: Gabapentin 400 MG Capsule PO (23:25)
[2025-01-22] MEDS: Magnesium Chloride 64 MG Delay Rel.Tablet PO (23:25)
[2025-01-22] MEDS: PARoxetine 10 MG Tablet PO (23:26)
[2025-01-22] MEDS: Rosuvastatin Calcium 5 MG Tablet 10 MG PO (23:29)
[2025-01-23 01:20] VITALS: BP 100/60; PULSE 82; RESP 16; TEMP 36.6; O2SAT 92
[2025-01-23 04:18] LABS: Absolute Lymphocyte Count 3.95 X10^3/uL (0.83-4.51); Absolute Neutrophil Count 5.5 X10^3/uL (2.0-7.7); Basophil# 0.04 X10^3/uL; Basophil% 0.4 % (0-1); Eosinophil# 0.12 X10^3/uL; Eosinophils% 1.1 % (0-5); Hematocrit 40.2 % (37-47); Hemoglobin 13.3 g/dL (12.0-15.0); Lymphocyte # 3.95 X10^3/ul (0.83-4.51); Lymphocyte % 36.2 % (19-41); Mean Corp Hgb Conc 33.1 g/dL (32-36); Mean Corpuscular Hgb 30.9 pg (27.0-32.0); Mean Corpuscular Volume 93.3 fL (81-99); Mean Platelet Vol. 10.2 fl (6.2-12.0); Monocyte# 1.26 X10^3/uL; Monocyte% 11.5 % (0-10); NRBC Flagged by Analyzer 0 % (0-5); Neutrophil # 5.49 X10^3/uL (2.7-7.7); Neutrophil % 50.3 % (47-70); Platelet Count 414 K/mm3 (150-450); RBC Distribution Width CV 15.9 % (11.6-14.6); RBC Distribution Width SD 54.5 fl (35.1-43.9); Red Blood Count 4.31 M/mm3 (4.2-5.4); White Blood Count 10.9 K/mm3 (4.4-11.0)
[2025-01-23 04:24] LABS: International Normalized Ratio 1.2; Prothrombin Time (Protime)PT. 15.8 SECONDS (11.7-14.9)
[2025-01-23 04:55] LABS: Anion Gap 12 (5-15); BUN 10 mg/dL (4-19); BUN/Creat Ratio 12.8 RATIO (10-20); Calcium,Total 9.4 mg/dL (7.6-11.0); Carbon Dioxide 23.5 mmol/L (21.0-32.0); Chloride 101 mmol/L (98-108); Creatinine, Serum 0.75 mg/dL (0.70-1.20); EST Glomerular Filtration Rate 82 (>60); Estimated Creatinine Clearance 57.34 ml/min (50-250); Glucose 129 mg/dL (70-99); Potassium 3.9 mmol/L (3.3-5.1); Sodium Level 137 mmol/L (133-145)
[2025-01-23 05:00] VITALS: BMI 34.3
[2025-01-23 05:20] VITALS: BP 131/71; PULSE 86; RESP 16; TEMP 36.6; O2SAT 96
[2025-01-23 05:22] LABS: Cholesterol 165 mg/dL (<=200); Triglycerides 221 mg/dL; Very Low Density Lipoprotein 44 mg/dL (5-40)
[2025-01-23] MEDS: Gabapentin 400 MG Capsule PO ×2 (05:34→13:27)
[2025-01-23 06:23] LABS: High Density Lipoprotein 36 mg/dL; Low Density Lipoprotein Calc. 85 mg/dL
[2025-01-23 06:50] VITALS: O2SAT 95
--- NOTE | 2025-01-23 07:37 | PCM.PN.HOSP ---
Reason for Visit Reason for Visit: Diagnoses Vertigo of central origin (01/22/25) Essential (primary) hypertension (01/22/25) Body mass index [BMI] 34.0-34.9, adult (01/22/25) jail (current) use of anticoagulants (01/22/25) Subjective Subjective Patient is a 79-year-old lady with past medical history significant for paroxysmal atrial fibrillation hypertension who presented with acute onset of vertigo admitted to monitored bed for further evaluation Objective Data Objective Data Vital Signs: Vital Signs Temp Pulse Resp BP Pulse Ox O2 Del Method O2 Flow Rate 98 F 86 16 131/71 H 96 Nasal Cannula 2 01/23/25 05:20 01/23/25 05:20 01/23/25 05:20 01/23/25 05:20 01/23/25 05:20 01/23/25 05:20 01/23/25 05:20 Oxygen Flow Rate (L/min) 2 Oxygen Delivery Method Nasal Cannula Weight: 82.5 kg Body Mass Index (BMI) 34.3 Lab / Micro Data 01/23/25 04:04 01/23/25 04:04 Labs: Laboratory Results - last 24 hr 01/22/25 17:20: WBC 13.5 H, RBC 4.37, Hgb 13.7, Hct 41.0, MCV 93.8, MCH 31.4, MCHC 33.4, RDW Std Deviation 55.5 H, RDW Coeff of Kadi 16.2 H, Plt Count 386, MPV 11.5, Immature Gran % (Auto) 0.300, Neut % (Auto) 39.9 L, Lymph % (Auto) 46.6 H, [place] % (Auto) 12.1 H, Eos % (Auto) 0.8, Baso % (Auto) 0.3, Absolute Neuts (auto) 5.4, Absolute Lymphs (auto) 6.29 H, Nucleated RBC % 0, Platelet Estimate ADEQUATE, PT 16.2 H, INR 1.3, APTT 26.8, Sodium 136, Potassium 4.0, Chloride 99, Carbon Dioxide 23.2, Anion Gap 14, BUN 11, Creatinine 0.85, Estim Creat Clear Calc 54.29, Est GFR (MDRD) Non-Af 70, BUN/Creatinine Ratio 13.0, Glucose 102 H, Calcium 9.7, Troponin T High Sens 8 01/22/25 18:10: POC Glucose 97 01/22/25 19:27: Troponin T Hi Sens 2 Hr 7 01/22/25 22:44: Troponin T Hi Sens 4Hr 13 01/23/25 04:04: WBC 10.9, RBC 4.31, Hgb 13.3, Hct 40.2, MCV 93.3, MCH 30.9, MCHC 33.1, RDW Std Deviation 54.5 H, RDW Coeff of Kadi 15.9 H, Plt Count 414, MPV 10.2, Immature Gran % (Auto) 0.500, Neut % (Auto) 50.3, Lymph % (Auto) 36.2, [place] % (Auto) 11.5 H, Eos % (Auto) 1.1, Baso % (Auto) 0.4, Absolute Neuts (auto) 5.5, Absolute Lymphs (auto) 3.95, Nucleated RBC % 0, PT 15.8 H, INR 1.2, Sodium 137, Potassium 3.9, Chloride 101, Carbon Dioxide 23.5, Anion Gap 12, BUN 10, Creatinine 0.75, Estim Creat Clear Calc 57.34, Est GFR (MDRD) Non-Af 82, BUN/Creatinine Ratio 12.8, Glucose 129 H, Calcium 9.4, Triglycerides 221 H, Cholesterol 165, LDL Cholesterol, Calc 85, VLDL Cholesterol 44 H, HDL Cholesterol 36 L, Cholesterol/HDL Ratio 4.60 Radiography Diagnostic Testing: Radiology Impression Brain CT 01/22/25 17:54 IMPRESSION: 1. No acute intracranial finding. 2. Findings of chronic microvascular ischemic changes and age-related changes. Reading Location: [facility] Head/Neck CTA 01/22/25 17:55 IMPRESSION: 1. No large vessel occlusion, AVM or aneurysm. 2. No stenosis of the cervical carotid arteries by NASCET criteria. Reading Location: [facility] Physical Exam Narrative GENERAL: cooperative HEENT: Atraumatic; normocephalic EYES; Anicteric, Normal Conjunctiva NECK; supple, normal thyroid, RESPIRATORY: Diminished to auscultation CARDIOVASCULAR: Regular S1 S2, GI: soft, normoactive bowel sounds, : No Renal angle tenderness; EXTREMITIES: No edema, no clubbing, MUSCULOSKELETAL: no muscle wasting NEURO: Awake; no lateralizing signs. SKIN: No Rash PSYCH; Flat affect Assessment & Plan Assessment/Plan (1) Adult BMI 34.0-34.9 kg/sq m: (2) Elevated blood pressure reading with diagnosis of hypertension: (3) Anticoagulant long-term use: (4) Vertigo of central origin: PLAN: Plan Patient is a 79-year-old lady with past medical history significant for paroxysmal atrial fibrillation hypertension who presented with acute onset of vertigo admitted to monitored bed for further evaluation 1. Acute vertigo ? Patient admitted to monitored bed. Placed on Q4 neurochecks ordered MRI and 2D echo and consultation placed to teleneuro 2. Paroxysmal atrial fibrillation ? Patient was on verapamil for rate control as well as apixaban for systemic anticoagulation 3. Hypertension ? Blood pressure controlled, home medications continued with dose adjustment as needed 4. Dyslipidemia ?Patient is on statin therapy, continued at home dose 5. Diabetes mellitus type 2 ? On metformin held on admission placed on Accu-Cheks AC and at bedtime with sliding scale coverage 6. Depression ? Patient is on Paxil, continue 7. Class I obesity with BMI of 34.4 ? Complicating care weight loss advised 8. Peripheral neuropathy ? Patient is on gabapentin did continue 9. DVT prophylaxis ? On apixaban Charges/Coding Visit Charges Inpatient E&M: 14387 Subs Hosp L2 NIHSS NIHSS Nursing Documentation NIHSS Nursing Documentation: NIHSS: Ischemic Stroke/TIA Start: 01/22/25 21:22 Text: For PCU Patients: NIH and Neuro Check every 4 Status: Active hours, PRN and with change in RN caregiver. Freq: [id number] Protocol: Activity Type Activity Date Activity User E-sign Co-sign Detail Recorded Client Recorded Date Recorded By Document 01/23/25 05:20 KW [id number] 01/23/25 05:30 KW 01/23/25 05:20 NIH Stroke Scale [NIHSS] A score of 0 is normal or asymptomatic . Total possible score is 42. Inpatient: RN or Physician to activate a stroke alert for onset of new stroke symptoms or with NIHSS increase >/= 3 points. Following change in neurological status, NIHSS will be performed per physician order or more frequently PRN. -1a. Level of Consciousness 0 - Alert; keenly responsive -1b. LOC Questions 0 - Answers BOTH questions correctly -1c. LOC Commands 0 - Performs BOTH tasks correctly -2. Best Gaze 0 - Normal -3. Visual 0 - No visual loss -4. Facial Palsy 0 - Normal symmetrical movements -5a. Left Arm 0 - No drift; arm holds 90 ( or 45) degrees for full 10 seconds -5b. Right Arm 0 - No drift; arm holds 90 ( or 45) degrees for full 10 seconds -6a. Left Leg 0 - No drift; leg holds 30- degree position for full 5 seconds -6b. Right Leg 0 - No drift; leg holds 30- degree position for full 5 seconds -7. Limb Ataxia 0 - Absent -8. Sensory 0 - Normal; no sensory loss -9. Best Language 0 - No aphasia; normal -10. Dysarthria 0 - Normal -11. Extinction and Inattention 0 - No abnormality -Total 0 Query Text:A score of 0 is normal or asymptomatic. Total possible score is 42 . ED: Notify Physician for NIHSS increase by > / = 3 points. Inpatient: RN or Physician to activate a stroke alert for NIHSS increase of > / = 3 points. Coma Scale [Assess] -Eye Opening Spontaneous -Motor Obeys Commands -Verbal Oriented [Total] -Coma Scale Total 15
--- NOTE | 2025-01-23 09:00 | MRI_ITS ---
PROCEDURE: BRAIN WITHOUT CONTRAST (MRIBR), 01/23/2025 REASON FOR EXAM: TIA COMPARISON: CT and CTA of same date TECHNIQUE: Multisequence multiplanar MRI brain was performed without intravenous contrast. Contrast: None. FINDINGS: Cerebrum: No acute infarct, appreciable intracranial hemorrhage, or mass. Moderate to advanced patchy supratentorial white matter abnormalities, nonspecific but compatible with chronic microvascular ischemic changes. Mild/moderate diffuse cerebral volume loss. Small remote lacunar infarcts in the bilateral basal ganglia. Cerebellum: Unremarkable. Brainstem: Unremarkable. Ventricles/extra-axial spaces: Age appropriate appearance. Major flow voids: Better evaluated on recent CTA. Paranasal sinuses: Mild mucosal thickening in the ethmoid air cells. Scalp/calvarium: Grossly unremarkable. Orbits: Bilateral cataract surgery.. Other: None. MRI/Brain without Contrast IMPRESSION: 1. No specific evidence of an acute intracranial process. 2. Additional description as above. Reading Location: [id number]
[2025-01-23 09:19] VITALS: BP 135/83; PULSE 88; RESP 17; TEMP 37.1; O2SAT 95
[2025-01-23] MEDS: Multivitamins,Therapeutic Tablet 1 TABLET PO (09:25)
[2025-01-23] MEDS: Paroxetine 20 MG Tablet 40 MG PO (09:25)
[2025-01-23] MEDS: APIXABAN 5 MG TABLET PO (09:25)
[2025-01-23] MEDS: Cholecalciferol (VIT D3) 25 MCG TABLET (1,000 UNITS) 50 MCG PO (09:25)
[2025-01-23] MEDS: Fluticasone 0.05% 1 SPRAY NASAL.SRY NASAL (09:26)
[2025-01-23] MEDS: Cyanocobalamin 500 MCG Tablet 1000 MCG PO (09:26)
--- NOTE | 2025-01-23 10:52 | NEURO.CONS ---
Assessment and Plan: Neuro Assessment/Plan FARIDA JHAVERI is a 79 F with a past medical history of vertigo, being evaluated by Teleneurology for vertigo lasted for one hour. Appears to be peripheral in etiology given previous history of it. CT head/CT angio negative .MRI Brain pending. Recommend continue Eliquis, statin .Can try meclizine 25 TID prn. Recommend outpatient vestibular rehab. Diagnosis:Peripheral Vertigo I personally attended this patient and spent a total time of 55 minutes evaluating this patient including clinical assessment, review of chart, medical history imaging, and determining appropriate treatment and workup. HPI Consult Data Date of Consult: 01/23/25 HPI Narrative HPI Narrative: FARIDA JHAVERI, is a 79 F who presents with vertginour symptoms .She was in her usual state ofheath [facility] acute onset vertiginous symptoms adn double vision. She lso felt sick to the stomach and nauseasted .Symptoms lasted for hour. Denies any focal weakness . She did [facility] Medical History Essential hypertension Dilated aortic root AAA (abdominal aortic aneurysm) without rupture Vertigo Atrial fibrillation Asthma Anxiety and depression Acute ischemic left posterior cerebral artery (PHARMACY CLINICAL SPECIALIST) stroke Herpes simplex vulvovaginitis Arthritis Obesity Hyperlipidemia Vulvar dermatitis Lichen sclerosus Diabetes Sarcoidosis Spleen anomaly Splenomegaly History of blood clots Sleep apnea Hemorrhoids BMI 36.0-36.9,adult History of PSVT (paroxysmal supraventricular tachycardia) Home Medications ?Medication ?Instructions ?Recorded ?Last Taken ?Type paroxetine HCl 20 mg tablet (Paxil) 40 mg PO DAILY DEPRESSION 04/03/16 01/22/25 History verapamil 80 mg tablet 80 mg PO BID HEART 04/03/16 01/22/25 History gabapentin 400 mg capsule 400 mg PO TID nerve pain 10/29/20 01/22/25 History fluticasone propionate 50 1 spray intranasal DAILY 09/09/21 01/21/25 History mcg/actuation nasal spray,suspension (Flonase Allergy Relief) apixaban 5 mg tablet (Eliquis) 5 mg PO BID 30 days #60 tabs 12/19/22 01/22/25 Rx biotin 1 mg capsule 1 mg PO DAILY 01/22/25 01/22/25 History cholecalciferol (vitamin D3) 50 50 mcg PO DAILY 01/22/25 01/22/25 History mcg (2,000 unit) tablet (Thera-D) magnesium 250 mg tablet 250 mg PO DAILY 01/22/25 01/22/25 History meclizine 25 mg tablet 25 mg PO 4X/DAY PRN Dizziness 01/22/25 Unknown History mecobalamin (vitamin B12) 1,000 1,000 mcg PO DAILY 01/22/25 01/22/25 History mcg lozenges metformin 500 mg tablet,extended 500 mg PO BID 01/22/25 01/22/25 History release 24 hr multivitamin (Multiple Vitamins 1 tab PO DAILY 01/22/25 01/22/25 History tablet) paroxetine HCl 20 mg tablet 10 mg PO QHS 01/22/25 01/21/25 History rosuvastatin 10 mg tablet 10 mg PO DAILY 01/22/25 01/21/25 History Allergy/AdvReac Type Severity Reaction Status Date / Time lidocaine Allergy Intermediate tachycardia Verified 06/23/23 10:34 Penicillins Allergy Hives Verified 06/23/23 10:34 atorvastatin AdvReac Pain in Verified 06/23/23 10:34 joints hydrocodone bitartrate (From AdvReac Vomiting Verified 06/23/23 10:34 Vicodin) oxycodone HCl (From Percocet) AdvReac Vomiting Verified 06/23/23 10:34 Family History Daughter Hypertension Father Heart disease Mother Dementia Surgical History History of breast biopsy H/O splenectomy History of hysterectomy Social History Smoking Status: Never smoker alcohol intake: current details: social substance use type: does not use caffeine: Yes what type of physical activity do you participate in: walking seatbelt use: always do you feel safe at home: Yes 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 Vital Signs Vital Signs Vital Signs: 01/22/25 17:45 01/22/25 17:48 01/22/25 17:54 Temperature 98.0 F Temperature Source Oral Pulse Rate 90 Respiratory Rate 14 Respiratory Effort Normal Respiratory Depth Respiratory Pattern Normal Blood Pressure 160/81 H Blood Pressure Mean 107 Blood Pressure Source Blood Pressure Position Blood Pressure Location Pulse Ox 95 Oxygen Delivery Method Room Air Room Air Oxygen Flow Rate (L/min) 01/22/25 18:09 01/22/25 18:24 01/22/25 19:00 Temperature 98.1 F Temperature Source Oral Pulse Rate 93 85 83 Respiratory Rate 20 H 16 14 Respiratory Effort Respiratory Depth Respiratory Pattern Blood Pressure 156/93 H 143/86 H 144/81 H Blood Pressure Mean 114 105 102 Blood Pressure Source Blood Pressure Position Blood Pressure Location Pulse Ox 95 93 94 Oxygen Delivery Method Room Air Room Air Room Air Oxygen Flow Rate (L/min) 01/22/25 19:30 01/22/25 20:00 01/22/25 20:13 Temperature 98.4 F 98.4 F Temperature Source Oral Pulse Rate 85 92 90 Respiratory Rate 20 H 17 18 Respiratory Effort Respiratory Depth Respiratory Pattern Blood Pressure 139/77 H 162/87 H 162/87 H Blood Pressure Mean 97 112 112 Blood Pressure Source Blood Pressure Position Blood Pressure Location Pulse Ox 93 92 95 Oxygen Delivery Method Room Air Room Air Oxygen Flow Rate (L/min) 01/22/25 20:41 01/22/25 20:45 01/22/25 21:00 Temperature Temperature Source Pulse Rate 88 91 85 Respiratory Rate 14 18 13 Respiratory Effort Respiratory Depth Respiratory Pattern Blood Pressure 133/74 H Blood Pressure Mean 91 Blood Pressure Source Blood Pressure Position Blood Pressure Location Pulse Ox 97 96 96 Oxygen Delivery Method Oxygen Flow Rate (L/min) 01/22/25 21:20 01/22/25 22:00 01/22/25 23:23 Temperature 97.8 F 98 F Temperature Source Oral Oral Pulse Rate 87 80 Respiratory Rate 16 16 Respiratory Effort Normal Non-Labored Respiratory Depth Normal Respiratory Pattern Normal Blood Pressure 112/99 H 142/77 H Blood Pressure Mean 103 98 Blood Pressure Source Monitor Monitor Blood Pressure Position Semi-Fowlers Semi-Fowlers Blood Pressure Location Right Arm Right Forearm Pulse Ox 95 93 Oxygen Delivery Method Room Air Room Air Room Air Oxygen Flow Rate (L/min) 01/23/25 01:20 01/23/25 05:20 01/23/25 06:50 Temperature 98 F 98 F Temperature Source Oral Oral Pulse Rate 82 86 Respiratory Rate 16 16 Respiratory Effort Respiratory Depth Respiratory Pattern Blood Pressure 100/60 131/71 H Blood Pressure Mean 73 91 Blood Pressure Source Monitor Monitor Blood Pressure Position Semi-Fowlers Semi-Fowlers Blood Pressure Location Right Arm Right Arm Pulse Ox 92 96 95 Oxygen Delivery Method Room Air Nasal Cannula Nasal Cannula Oxygen Flow Rate (L/min) 2 2 01/23/25 09:19 01/23/25 09:30 Temperature 98.7 F Temperature Source Oral Pulse Rate 88 Respiratory Rate 17 Respiratory Effort Respiratory Depth Respiratory Pattern Blood Pressure 135/83 H Blood Pressure Mean 100 Blood Pressure Source Monitor Blood Pressure Position Semi-Fowlers Blood Pressure Location Left Arm Pulse Ox 95 Oxygen Delivery Method Room Air Room Air Oxygen Flow Rate (L/min) Weight Weight: 82.5 kg Body Mass Index (BMI) 34.3 EEG Results Procedure Details EEG Procedure Details: FARIDA JHAVERI is a 79 year old F with a past medical history of , who presents for evaluation of Electroencephalogram on DATE at TIME Physical Exam Neuro Neuro Narrative: -? General: Laying comfortably in bed; in no acute distress. -? HENT: Normal oropharynx and mucosa. Normal external appearance of ears and nose. Exophthalmos. -? Neck: Supple, no pain or tenderness -? CV:? No peripheral edema. -? Pulmonary:? Normal respiratory effort. -? Ext: No cyanosis, edema, or deformity -? Skin: No rash. Normal palpation of skin.? -? Musculoskeletal: full range of motion; no joint tenderness. Normal digits and nails by inspection. No clubbing. -? NEURO: -? Mental Status: The patient was alert and oriented to time, place, and person. Normal recent/remote memory, concentration, and general fund of knowledge. -? Language: speech is fluent.? Naming, repetition, fluency, and comprehension intact. -? Cranial Nerves: PERRL 3 mm/brisk. EOMI, visual trotter full, no facial asymmetry, facial sensation intact, hearing intact, tongue midline, no evidence of atrophy or fibrillations. As performed by the nurse. Sternocleidomastoid and trapezius were equally strong. Soft palate raises equally, no uvular deviations -? Motor: normal bulk, tone, and strength throughout. No pronator drift or satelliting. Upper and lower extremities equal bilaterally. R L R L -? Tone: is normal and bulk is normal -? Sensation- Intact to light touch bilaterally -? Coordination: No dysmetria on [id number], finger follow finger or [id number]. -? Gait- Gait initiation was normal. Narrow base with good heel strike and stride length was observed during ambulation. Turns were in stride. Patient was able to walk normally in tandem. Romberg was normal. Lab / Micro Data 01/23/25 04:04 01/23/25 04:04 Labs: Laboratory Results - last 24 hr 01/22/25 17:20: WBC 13.5 H, RBC 4.37, Hgb 13.7, Hct 41.0, MCV 93.8, MCH 31.4, MCHC 33.4, RDW Std Deviation 55.5 H, RDW Coeff of Kadi 16.2 H, Plt Count 386, MPV 11.5, Immature Gran % (Auto) 0.300, Neut % (Auto) 39.9 L, Lymph % (Auto) 46.6 H, [place] % (Auto) 12.1 H, Eos % (Auto) 0.8, Baso % (Auto) 0.3, Absolute Neuts (auto) 5.4, Absolute Lymphs (auto) 6.29 H, Nucleated RBC % 0, Platelet Estimate ADEQUATE, PT 16.2 H, INR 1.3, APTT 26.8, Sodium 136, Potassium 4.0, Chloride 99, Carbon Dioxide 23.2, Anion Gap 14, BUN 11, Creatinine 0.85, Estim Creat Clear Calc 54.29, Est GFR (MDRD) Non-Af 70, BUN/Creatinine Ratio 13.0, Glucose 102 H, Calcium 9.7, Troponin T High Sens 8 01/22/25 18:10: POC Glucose 97 01/22/25 19:27: Troponin T Hi Sens 2 Hr 7 01/22/25 22:44: Troponin T Hi Sens 4Hr 13 01/23/25 04:04: WBC 10.9, RBC 4.31, Hgb 13.3, Hct 40.2, MCV 93.3, MCH 30.9, MCHC 33.1, RDW Std Deviation 54.5 H, RDW Coeff of Kadi 15.9 H, Plt Count 414, MPV 10.2, Immature Gran % (Auto) 0.500, Neut % (Auto) 50.3, Lymph % (Auto) 36.2, [place] % (Auto) 11.5 H, Eos % (Auto) 1.1, Baso % (Auto) 0.4, Absolute Neuts (auto) 5.5, Absolute Lymphs (auto) 3.95, Nucleated RBC % 0, PT 15.8 H, INR 1.2, Sodium 137, Potassium 3.9, Chloride 101, Carbon Dioxide 23.5, Anion Gap 12, BUN 10, Creatinine 0.75, Estim Creat Clear Calc 57.34, Est GFR (MDRD) Non-Af 82, BUN/Creatinine Ratio 12.8, Glucose 129 H, Calcium 9.4, Triglycerides 221 H, Cholesterol 165, LDL Cholesterol, Calc 85, VLDL Cholesterol 44 H, HDL Cholesterol 36 L, Cholesterol/HDL Ratio 4.60 Imaging Radiology Impression Brain CT 01/22/25 17:54 IMPRESSION: 1. No acute intracranial finding. 2. Findings of chronic microvascular ischemic changes and age-related changes. Reading Location: [facility] Head/Neck CTA 01/22/25 17:55 IMPRESSION: 1. No large vessel occlusion, AVM or aneurysm. 2. No stenosis of the cervical carotid arteries by NASCET criteria. Reading Location: [facility] Active Medications Active Medications Active Medications: Current Medications Generic Name Dose Route Start Last Admin Trade Name Freq PRN Reason Stop Dose Admin Apixaban 5 mg 01/22/25 22:00 01/23/25 09:25 Apixaban 5 Mg Tablet PO 5 mg BID SIMON Administration Cholecalciferol 50 mcg 01/23/25 10:00 01/23/25 09:25 Cholecalciferol (Vit D3) 25 Mcg Tablet (1,000 Units) PO 50 mcg DAILY SIMON Administration Cyanocobalamin 1,000 mcg 01/23/25 10:00 01/23/25 09:26 Cyanocobalamin 500 Mcg Tablet PO 1,000 mcg DAILY SIMON Administration Fluticasone Propionate 1 spray 01/23/25 10:00 01/23/25 09:26 Fluticasone 0.05% 1 [place] Nasal.Sry NASAL 1 spray DAILY SIMON Administration Gabapentin 400 mg 01/22/25 22:00 01/23/25 05:34 Gabapentin 400 Mg Capsule PO 400 mg TID SIMON Administration Sodium Chloride 100 mls @ 15 mls/hr 01/22/25 23:44 IV .Q6H40M PRN Saline Flush Sodium Chloride 100 mls @ 15 mls/hr 01/22/25 23:44 IV .Q6H40M PRN Additional IVPB Infusion Labetalol HCl 20 mg 01/22/25 17:54 Labetalol 20mg/4ml Syringe IV 01/23/25 17:54 X1 PRN Blood Pressure Labetalol HCl 10 - 20 mg 01/22/25 21:22 Labetalol 20mg/4ml Syringe IV 01/23/25 21:22 Q10M PRN PRN maintain BP parameters with HR >/=60 Magnesium Chloride 64 mg 01/23/25 10:00 01/23/25 09:26 Magnesium Chloride 64 Mg Delay Rel.Tablet PO Not Given DAILY SIMON Meclizine HCl 25 mg 01/22/25 21:22 Meclizine Hcl 25 Mg Tablet PO 4X/DAY PRN PRN DIZZINESS Metformin HCl 500 mg 01/23/25 08:00 01/23/25 08:14 Metformin (Xr) 500 Mg Tablet PO Not Given BIDCM SIMON Multivitamins 1 tablet 01/23/25 08:00 01/23/25 09:25 Multivitamins,Therapeutic Tablet PO 1 tablet DAILYCM SIMON Administration Paroxetine HCl 40 mg 01/23/25 10:00 01/23/25 09:25 Paroxetine 20 Mg Tablet PO 40 mg DAILY SIMON Administration Paroxetine HCl 10 mg 01/22/25 22:00 01/22/25 23:26 Paroxetine 10 Mg Tablet PO 10 mg QHS SIMON Administration Rosuvastatin Calcium 10 mg 01/22/25 22:00 01/22/25 23:29 Rosuvastatin Calcium 5 Mg Tablet PO 10 mg 2200 SIMON Administration Sodium Chloride 10 - 40 ml 01/22/25 23:44 0.9% Saline Lock 10 Ml Syringe IV UD PRN SALINE FLUSH Verapamil HCl 80 mg 01/22/25 22:00 01/23/25 08:14 Verapamil 80 Mg Tablet PO Not Given BID SIMON Protocol NIHSS NIHSS Nursing Documentation NIHSS Nursing Documentation: NIHSS: Ischemic Stroke/TIA Start: 01/22/25 21:22 Text: For PCU Patients: NIH and Neuro Check every 4 Status: Active hours, PRN and with change in RN caregiver. Freq: [id number] Protocol: Activity Type Activity Date Activity User E-sign Co-sign Detail Recorded Client Recorded Date Recorded By Document 01/23/25 09:19 [id number] 01/23/25 09:21 01/23/25 09:19 NIH Stroke Scale [NIHSS] A score of 0 is normal or asymptomatic . Total possible score is 42. Inpatient: RN or Physician to activate a stroke alert for onset of new stroke symptoms or with NIHSS increase >/= 3 points. Following change in neurological status, NIHSS will be performed per physician order or more frequently PRN. -1a. Level of Consciousness 0 - Alert; keenly responsive -1b. LOC Questions 0 - Answers BOTH questions correctly -1c. LOC Commands 0 - Performs BOTH tasks correctly -2. Best Gaze 0 - Normal -3. Visual 0 - No visual loss -4. Facial Palsy 0 - Normal symmetrical movements -5a. Left Arm 0 - No drift; arm holds 90 ( or 45) degrees for full 10 seconds -5b. Right Arm 0 - No drift; arm holds 90 ( or 45) degrees for full 10 seconds -6a. Left Leg 0 - No drift; leg holds 30- degree position for full 5 seconds -6b. Right Leg 0 - No drift; leg holds 30- degree position for full 5 seconds -7. Limb Ataxia 0 - Absent -8. Sensory 0 - Normal; no sensory loss -9. Best Language 0 - No aphasia; normal -10. Dysarthria 0 - Normal -11. Extinction and Inattention 0 - No abnormality -Total 0 Query Text:A score of 0 is normal or asymptomatic. Total possible score is 42 . ED: Notify Physician for NIHSS increase by > / = 3 points. Inpatient: RN or Physician to activate a stroke alert for NIHSS increase of > / = 3 points. Coma Scale [Assess] -Eye Opening Spontaneous -Motor Obeys Commands -Verbal Oriented [Total] -Coma Scale Total 15
--- NOTE | 2025-01-23 14:16 | PCM.DC.SUM ---
Providers Date of Admission: 01/22/25 Primary Care Physician: Dr. Edda Ruano MD Consultations 01/23/25 07:40 Tele [Consult: Tele-Neurology] Routine Consulting Provider: [facility] Reason for Consult: vertigo EMERGENT Consult: No MD Notified: Yes Date Notified: 01/23/25 Time Notified: 08:12 Method of Notification: Answering Service Nursing Unit Staff Notify [facility] of Tele-Neurology Consult: Yes Reason For Visit: TRANSIENT ISCHEMIC ATTACK Diagnosis Discharge Diagnosis (1) Adult BMI 34.0-34.9 kg/sq m: Status: Acute Code(s): Z68.34 - Body mass index [BMI] 34.0-34.9, adult (2) Elevated blood pressure reading with diagnosis of hypertension: Status: Acute Code(s): I10 - Essential (primary) hypertension (3) Anticoagulant long-term use: Status: Acute Code(s): 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 Acute vertigo ? Patient admitted to monitored bed. Placed on Q4 neurochecks ordered MRI and 2D echo and consultation placed to teleneuro ? Patient MRI was negative for acute CVA. Patient was seen in consultation by teleneuro recommended continuation of systemic anticoagulation meclizine as needed as well as vestibular therapy as 2. Paroxysmal atrial fibrillation ? Patient was on verapamil for rate control as well as apixaban for systemic anticoagulation 3. Hypertension ? Blood pressure controlled, home medications continued with dose adjustment as needed 4. Dyslipidemia ?Patient is on statin therapy, continued at home dose 5. Diabetes mellitus type 2 ? On metformin held on admission placed on Accu-Cheks AC and at bedtime with sliding scale coverage 6. Depression ? Patient is on Paxil, continue 7. Class I obesity with BMI of 34.4 ? Complicating care weight loss advised 8. Peripheral neuropathy ? Patient is on gabapentin did continue 9. DVT prophylaxis ? On apixaban Medications at Discharge Home Medications paroxetine HCl 20 mg tablet (Paxil) 40 mg PO DAILY DEPRESSION 04/03/16 verapamil 80 mg tablet 80 mg PO BID HEART 04/03/16 gabapentin 400 mg capsule 400 mg PO TID nerve pain 10/29/20 fluticasone propionate 50 mcg/actuation nasal spray,suspension (Flonase Allergy Relief) 1 spray intranasal DAILY 09/09/21 apixaban 5 mg tablet (Eliquis) 5 mg PO BID 30 days #60 tabs 12/19/22 biotin 1 mg capsule 1 mg PO DAILY 01/22/25 cholecalciferol (vitamin D3) 50 mcg (2,000 unit) tablet (Thera-D) 50 mcg PO DAILY 01/22/25 magnesium 250 mg tablet 250 mg PO DAILY 01/22/25 meclizine 25 mg tablet 25 mg PO 4X/DAY PRN Dizziness 01/22/25 mecobalamin (vitamin B12) 1,000 mcg lozenges 1,000 mcg PO DAILY 01/22/25 metformin 500 mg tablet,extended release 24 hr 500 mg PO BID 01/22/25 multivitamin (Multiple Vitamins tablet) 1 tab PO DAILY 01/22/25 paroxetine HCl 20 mg tablet 10 mg PO QHS 01/22/25 rosuvastatin 10 mg tablet 10 mg PO DAILY 01/22/25 Hospital Course Summary of Care Provided Minutes Spent on Discharge: 35 Physical Exam Narrative GENERAL: cooperative HEENT: Atraumatic; normocephalic EYES; Anicteric, Normal Conjunctiva NECK; supple, normal thyroid, RESPIRATORY: Diminished to auscultation CARDIOVASCULAR: Regular S1 S2, GI: soft, normoactive bowel sounds, : No Renal angle tenderness; EXTREMITIES: No edema, no clubbing, MUSCULOSKELETAL: no muscle wasting NEURO: Awake; no lateralizing signs. SKIN: No Rash PSYCH; Flat affect Weight / BMI Weight Weight: 82.5 kg Body Mass Index (BMI) 34.3 ABG / Lab / Microbiology Data 01/23/25 04:04 01/23/25 04:04 Laboratory: Laboratory Results - last 24 hr 01/22/25 17:20: WBC 13.5 H, RBC 4.37, Hgb 13.7, Hct 41.0, MCV 93.8, MCH 31.4, MCHC 33.4, RDW Std Deviation 55.5 H, RDW Coeff of Kadi 16.2 H, Plt Count 386, MPV 11.5, Immature Gran % (Auto) 0.300, Neut % (Auto) 39.9 L, Lymph % (Auto) 46.6 H, [place] % (Auto) 12.1 H, Eos % (Auto) 0.8, Baso % (Auto) 0.3, Absolute Neuts (auto) 5.4, Absolute Lymphs (auto) 6.29 H, Nucleated RBC % 0, Platelet Estimate ADEQUATE, PT 16.2 H, INR 1.3, APTT 26.8, Sodium 136, Potassium 4.0, Chloride 99, Carbon Dioxide 23.2, Anion Gap 14, BUN 11, Creatinine 0.85, Estim Creat Clear Calc 54.29, Est GFR (MDRD) Non-Af 70, BUN/Creatinine Ratio 13.0, Glucose 102 H, Calcium 9.7, Troponin T High Sens 8 01/22/25 18:10: POC Glucose 97 01/22/25 19:27: Troponin T Hi Sens 2 Hr 7 01/22/25 22:44: Troponin T Hi Sens 4Hr 13 01/23/25 04:04: WBC 10.9, RBC 4.31, Hgb 13.3, Hct 40.2, MCV 93.3, MCH 30.9, MCHC 33.1, RDW Std Deviation 54.5 H, RDW Coeff of Kadi 15.9 H, Plt Count 414, MPV 10.2, Immature Gran % (Auto) 0.500, Neut % (Auto) 50.3, Lymph % (Auto) 36.2, [place] % (Auto) 11.5 H, Eos % (Auto) 1.1, Baso % (Auto) 0.4, Absolute Neuts (auto) 5.5, Absolute Lymphs (auto) 3.95, Nucleated RBC % 0, PT 15.8 H, INR 1.2, Sodium 137, Potassium 3.9, Chloride 101, Carbon Dioxide 23.5, Anion Gap 12, BUN 10, Creatinine 0.75, Estim Creat Clear Calc 57.34, Est GFR (MDRD) Non-Af 82, BUN/Creatinine Ratio 12.8, Glucose 129 H, Calcium 9.4, Triglycerides 221 H, Cholesterol 165, LDL Cholesterol, Calc 85, VLDL Cholesterol 44 H, HDL Cholesterol 36 L, Cholesterol/HDL Ratio 4.60 Radiography Diagnostic Testing: Radiology Impression Brain CT 01/22/25 17:54 IMPRESSION: 1. No acute intracranial finding. 2. Findings of chronic microvascular ischemic changes and age-related changes. Reading Location: [facility] Head/Neck CTA 01/22/25 17:55 IMPRESSION: 1. No large vessel occlusion, AVM or aneurysm. 2. No stenosis of the cervical carotid arteries by NASCET criteria. Reading Location: [facility] Brain MRI 01/23/25 09:00 IMPRESSION: 1. No specific evidence of an acute intracranial process. 2. Additional description as above. Reading Location: [facility] D/C Instructions Discharge Diet: No restrictions Discharge Activity: Return to Normal Activity Call your doctor if you observe: Fever of 101 or Higher, Shortness of breath, Fainting spells and Chest pain DC O2, CPAP, BIPAP Needs Home O2 Discharge instructions: No Meaningful Use Info Meaningful Use Meaningful Use Diagnoses (Choose all that apply): None applicable Ischemic Stroke Statin Dosing Therapy Reference: STATIN DOSE THERAPY REFERENCE: * Patients > 75 years receive moderate or high dose statin therapy. * Patients 75 years or YOUNGER should receive HIGH intensity statin dose unless contraindicated. You will be required to document reason for non-treatment if statin daily dose does not meet guidelines. HIGH DOSE STATIN THERAPY DAILY Atorvastatin > than or = to 40 mg Rosuvastatin > than or = to 20 mg Amlodipine + Atorvastatin > than or = to 2.5/40 mg Ezetimibe + Simvastatin 10/80 mg Simvastatin 80mg Discharge Plan Admission Admit Date/Time: 01/22/25 20:56 Attending Provider: Adebayo De La Cruz Primary Care Provider: Edda Ruano Consulting Providers: Pablo Fernandes; Smith Benites; Sunil Mcnally; Quiana Sexton; Mara Tillman; Kat Tinajero; José Waters; Tasha Aviles; Eliseo Dent; Shahriar Saeed; German Talamantes; Ariella Madear; Mike Nunn; Marilynn Lala; Caity Samuel; Chico Ashraf; Farooq Ramon; Yesica Rubalcava; Pan Leong; Ness Liao; Kimberly Mckinney Discharge Orders/Prescriptions Prescriptions: Continued fluticasone propionate [Flonase Allergy Relief] 50 mcg/actuation spray,suspension 1 spray intranasal DAILY Rx Instructions: administer into each nostril paroxetine HCl [Paxil] 20 MG tablet 40 mg PO DAILY Rx Instructions: AM WITH 10 MG HS verapamil 80 MG tablet 80 mg PO BID gabapentin 400 MG capsule 400 mg PO TID Eliquis 5 mg Tablet 5 mg PO BID 30 Days Qty: 60 2RF metformin 500 mg tablet extended release 24 hr 500 mg PO BID rosuvastatin 10 mg tablet 10 mg PO DAILY mecobalamin (vitamin B12) 1,000 mcg lozenge 1,000 mcg PO DAILY Rx Instructions: allow to dissolve in mouth OR may chew lightly before swallowing magnesium 250 mg tablet 250 mg PO DAILY multivitamin [Multiple Vitamins] Tablet 1 tab PO DAILY biotin 1 mg capsule 1 mg PO DAILY cholecalciferol (vitamin D3) [Thera-D] 50 mcg (2,000 unit) tablet 50 mcg PO DAILY meclizine 25 mg tablet 25 mg PO 4X/DAY PRN paroxetine HCl 20 mg tablet 10 mg PO QHS Other Ambulatory Orders: Physical Therapy Evaluation (Routine) Location: None Selected Ordered By: Dr. Adebayo De La Cruz Referrals / Follow Up: Edda Ruano MD [Primary Care Provider] - Within 1 Week Disposition Disposition (needs filled in before D/C Order can be placed): Home, Self Care Charges/Coding Visit Charges Inpatient E&M: 93799 Disch Hosp >30min
--- NOTE | 2025-01-23 14:54 | CASEMGMT ---
Social Work SW completed PHQ9 depression screen due to possible TIA. Pt with score of 7 indicating mild depression. Pt states she does take medication and has seen a counselor in the past. SW and pt discussed possibly reconnecting with counselor and pt states she did not like the counselor she had. SW provided pt with updated list of counseling options in the area. Pt appreciative of information. No other needs at this time. ARLEEN Saunders
[2025-01-23 15:07] VITALS: BP 147/71; PULSE 99; RESP 18; TEMP 36.9; O2SAT 97
--- NOTE | 2025-01-23 15:09 | PHA.DC.MR.R ---
Pharmacy [place] Med Reconciliation Pharmacy Service has performed discharge medication reconciliation for this patient. The patient's discharge medication list was reviewed for discrepancies and discrepancies were resolved. Medications at Discharge Home Medications paroxetine HCl 20 mg tablet (Paxil) 40 mg PO DAILY DEPRESSION 04/03/16 verapamil 80 mg tablet 80 mg PO BID HEART 04/03/16 gabapentin 400 mg capsule 400 mg PO TID nerve pain 10/29/20 fluticasone propionate 50 mcg/actuation nasal spray,suspension (Flonase Allergy Relief) 1 spray intranasal DAILY 09/09/21 apixaban 5 mg tablet (Eliquis) 5 mg PO BID 30 days #60 tabs 12/19/22 biotin 1 mg capsule 1 mg PO DAILY 01/22/25 cholecalciferol (vitamin D3) 50 mcg (2,000 unit) tablet (Thera-D) 50 mcg PO DAILY 01/22/25 magnesium 250 mg tablet 250 mg PO DAILY 01/22/25 meclizine 25 mg tablet 25 mg PO 4X/DAY PRN Dizziness 01/22/25 mecobalamin (vitamin B12) 1,000 mcg lozenges 1,000 mcg PO DAILY 01/22/25 metformin 500 mg tablet,extended release 24 hr 500 mg PO BID 01/22/25 multivitamin (Multiple Vitamins tablet) 1 tab PO DAILY 01/22/25 paroxetine HCl 20 mg tablet 10 mg PO QHS 01/22/25 rosuvastatin 10 mg tablet 10 mg PO DAILY 01/22/25
--- NOTE | 2025-01-23 15:20 | CASEMGMT ---
Patient has order for discharge. Script received for outpatient vestibular therapy. MARIA LUISA CM in to discuss needs at discharge. Patient states she would like outpatient vestibular therapy completed at [facility]. Patient denies further needs or concerns at discharge. Patient had no further questions. MARIA LUISA BARNETT sent referral to [facility]. Discharge plan updated.
[2025-01-23 15:34] VITALS: BMI 34.3
== END 2025-01-23 15:29 | disposition home or self-care (01) ==
LOC: ED 20:01 → PCU 21:16
PROVIDERS: Admitting Provider Family Medicine; Emergency Provider Emergency Medicine; PCP Internal Medicine; Visit Provider Internal Medicine
DX: H81.4 Vertigo of central origin (principal); I48.0 Paroxysmal atrial fibrillation; E11.42 Type 2 diabetes mellitus with diabetic polyneuropathy; R26.2 Difficulty in walking, not elsewhere classified; Z82.49 Family history of ischemic heart disease and other diseases of the circulatory system; Z86.73 Personal history of transient ischemic attack (TIA), and cerebral infarction without residual deficits; Z79.01 Long term (current) use of anticoagulants; E78.5 Hyperlipidemia, unspecified; Z90.710 Acquired absence of both cervix and uterus; Z68.34 Body mass index [BMI] 34.0-34.9, adult; I10 Essential (primary) hypertension; E66.811 Obesity, class 1; F32.A Depression, unspecified
CPT/HCPCS: 36415; 70450; 70496; 70498; 70551; 80048; 80061; 82962; 84484; 85025; 85610; 85730; 93005; 93306; 94762; 97162; 99221; 99285; Q9967; G0378

== ENCOUNTER 2025-01-31 13:31 | Outpatient (RCR) | payer MEDICARE, SELFPAY ==
--- NOTE | 2025-01-31 14:18 | HP.PTEVAL ---
Patient's Visit Information Visit Information Visit Information: FARIDA JHAVERI is a 79 year old F referred to Physical Therapy by Dr. Adebayo De La Cruz MD with a diagnosis of vestibular. Date of Evaluation: 01/31/25 Physical Therapist: Pieter Hernandez, DPT, OCS, CSCS Visit Plan Plan: No skilled intervention needed today. Vestibular system looks clear. doctor thinks it was a TIA and is seeing neuro for that. May be appropriate to be sent back for ex therapy after cleared by neuro with appropriate TIA or other treatment. Subjective Subjective: Hospital doctors decided vertigo may be problem. Had it in past and was better. 9 days ago was at [facility] and collapsed from passing out for short time and hit ground. No injuries. Went to hospital and had CATSCAN due to TIA in 2022 which may have happened again. Symptoms at collapse were things going black and spinning and eyes were moving. Was looking straight ahead. Hospital said may have had TIA and given meclizine if gets dizzy. Sick for 3 days afteer hospital. No problems with dizzy or passing out since. heart was checked in hospital and was OK. Sleeping OK, Activities are normal but is cautious due to lack of reeasoning for symptoms. Not employed. Objective Objective: Walks into PT I without AD. [employer] chair and bed I. FGA taken without AD and did well for age. cervical AROM WFL adn without pain. UE AROM WFL. Streength UE 4-/5. Steps reciprocal with one rail up and down. - B hallpike tory - roll tests. Oculomotor: unremarkable no nystagmus today with gaze or had shake - ocular tilt - skew eye deviation - head thrust. normal and asymptomatic pursuit and saccades and VOR, MSQ positions aree not dizzy except quickly up from both HD positions.( hypotensive?) Fairly normal vestibular xam today. Balance/Special Test Scores Functional Gait Assessment Score: 25 % Disability: 16.6700 Dizziness Score: 22 Rehabilitation Potential Physical Therapy Diagnosis: Pt doing well with normal vestibular testing today Anticipated Interventions Text: Thank you for the opportunity to evaluate your patient. For Medicare and Medicare HMO plans, please review the plan of care and approve it. It will need to be FAXED BACK to us at [phone] for Medicare purposes. For Medicare only, by signing this I certify the plan of care. Please let me know if there are questions or concerns regarding this plan of care. Physician Signature: Date:
== END 2025-01-31 19:00 | disposition home or self-care (01) ==
LOC: PT 13:31
PROVIDERS: PCP Internal Medicine; Referring Provider Internal Medicine; Visit Provider Internal Medicine
DX: R26.89 Other abnormalities of gait and mobility (principal)
CPT/HCPCS: 97162

== ENCOUNTER → 2025-03-02 | Outpatient (CLI) | payer MEDICARE, SELFPAY ==
--- NOTE | 2025-03-02 14:05 | CDU_ITS ---
Reason For Study Reason For Study: Lightheadness Rt. Velocities/BP Lt. Velocities/BP Prox CCA 42.1/7.2 cm/sec. Prox CCA 53.5/10.0 cm/sec. Mid CCA 55.4/11.0 cm/sec. Mid CCA 70.5/13.8 cm/sec. Dist CCA 96.5/10.6 cm/sec. Dist CCA 61.0/11.9 cm/sec. Prox ICA 73.2/10.6 cm/sec. Prox ICA 68.3/17.9 cm/sec. Mid ICA 54.8/11.8 cm/sec. Mid ICA 75.6/17.9 cm/sec. Dist ICA 55.6/11.7 cm/sec. Dist ICA 50.9/12.8 cm/sec. Rt. ICA/CCA = 1.3. Lt. ICA/CCA = 1.1. Prox ECA 92.4/6.6 cm/sec. Prox ECA 50.7/3.5 cm/sec. Rt. Vert. 32.7/7.2 cm/sec. Lt. Vert. 27.6/7.5 cm/sec. Right Extracranial There is intimal thickening but no significant atherosclerotic plaque noted in the right common carotid artery. There is homogeneous, smooth atherosclerotic plaque noted in the right internal carotid artery. There is intimal thickening but no significant atherosclerotic plaque noted in the right external carotid artery. Antegrade flow is noted in the right vertebral artery. Left Extracranial There is heterogeneous, irregular atherosclerotic plaque noted in the left common carotid artery. There is heterogeneous, irregular atherosclerotic plaque noted in the left internal carotid artery. There is intimal thickening but no significant atherosclerotic plaque noted in the left external carotid artery. Antegrade flow is noted in the left vertebral artery. Procedure Carotid Duplex [id number]. This is a Carotid Duplex examination using B-mode, color flow and specral Doppler. Exam performed in department. VL/Carotid Duplex Ultrasound Interpretation Summary Mild (<50%) stenosis right extracranial internal carotid. Mild (<50%) stenosis left extracranial internal carotid. Patent and antegrade vertebrals bilaterally. Ordering Physician: Lora Oliver Referring Physician: Edda Ruano M.D. Performed By: Vanessa Hammond RVT
[2025-03-08 12:02] LABS: Bedside Glucose 86 mg/dL (74-106)
== END | disposition home or self-care (01) ==
PROVIDERS: PCP Internal Medicine; Referring Provider Nurse Practitioner Gerontology; Visit Provider Nurse Practitioner Gerontology
DX: R42 Dizziness and giddiness (principal)
CPT/HCPCS: 82962; 93880

== ENCOUNTER → 2025-03-16 | Outpatient (CLI) | payer MEDICARE, SELFPAY ==
--- NOTE | 2025-03-16 14:18 | CT_ITS ---
PROCEDURE: CTA CHEST W/WO CONTRAST 03/16/2025 REASON FOR EXAM: DILATED AORTIC ROOT TECHNIQUE: CTA CHEST W/WO CONTRAST Multiplanar Sagittal and Coronal images were obtained. CONTRAST: Isovue-370 VOLUME: 100 mL One or more dose reduction techniques were used (e.g., Automated exposure control, adjustment of the mA and/or kV according to patient size, use of iterative reconstruction technique). RADIATION DOSE SUMMARY: CTDlvol: 13.34 mGy DLP: 498 mGycm COMPARISON: 07/06/2023. FINDINGS: Mild aneurysmal dilatation of the ascending aorta/aortic root junction at 4.28 x 3.71 cm, unchanged. The aorta at the level of the valves measures 3.19 x 3.97 cm which is within normal limits, unchanged. The diameter of the arch and descending thoracic aorta is within normal limits. Normal enhancement of the main pulmonary artery and right and left pulmonary arteries. Normal enhancement of the bilateral peripheral pulmonary arteries. There is no demonstrated pulmonary embolism. There is no demonstrated aortic dissection. Normal heart and pericardium. Normal mediastinum. Normal hilar regions. Normal visualized trachea and bronchi. The lungs are well expanded. Normal pulmonary parenchyma. Normal pleura. Moderate diffuse spondylosis. Hepatomegaly with hepatic steatosis. Normal visualized upper abdomen. CT/CTA Chest W/WO Contrast IMPRESSION: Mild aneurysmal dilatation of the ascending aorta/aortic root junction at 4.28 x 3.71 cm, unchanged. The aorta at the level of the valves measures 3.19 x 3.97 cm which is within no rmal limits, unchanged. The diameter of the arch and descending thoracic aorta is within normal limits. No CT evidence of pulmonary embolus or aortic dissection. Reading Location: [place] [id number]
== END | disposition home or self-care (01) ==
LOC: CT 14:16
PROVIDERS: PCP Internal Medicine; Referring Provider Nurse Practitioner Gerontology; Visit Provider Nurse Practitioner Gerontology
DX: I77.810 Thoracic aortic ectasia (principal)
CPT/HCPCS: 71275; Q9967

== ENCOUNTER 2025-03-18 16:10 | Emergency (ER) | payer MEDICARE, SELFPAY ==
[2025-03-18 16:11] VITALS: BP 125/62; PULSE 87; RESP 16; TEMP 36.7; O2SAT 98; BMI 34.1
--- NOTE | 2025-03-18 16:33 | CT_ITS ---
PROCEDURE: BRAIN/HEAD WITHOUT CONTRAST 03/18/2025 REASON FOR EXAM: HEAD INJURY TECHNIQUE: BRAIN/HEAD WITHOUT CONTRAST Coronal and Sagittal reconstruction series were provided. One or more dose reduction techniques were used (e.g., Automated exposure control, adjustment of the mA and/or kV according to patient size, use of iterative reconstruction technique. RADIATION DOSE SUMMARY: DLP: 779 mGycm COMPARISON: MR from 01/23/2025 FINDINGS: There is no acute infarct, intracranial hemorrhage, or mass effect. There is no hydrocephalus or significant midline shift. There is mild chronic microvascular ischemic changes. No acute, depressed calvarial fractures. No large scalp hematomas. Bilateral lens surgery. CT/Brain/Head without Contrast IMPRESSION: No acute intracranial process. Reading Location: [id number]
--- OUTSIDE RECORDS SUMMARY | 2025-03-18 16:42 | XMS RPT_ITS | CCD ---
Author Organization [facility] Care Team Providers Care Laboratory Director Name Role Phone Yenifer Gonsalez MD Primary Care Provider Dr. Yenifer Gonsalez Primary Care Provider Dr. Alejandro Chaudhari Emergency Provider Dr. Kitty Brooks Admit Provider Dr. Kitty Brooks Other Provider Dr. Alonso Tapia Other Provider Dr. Shahbaz Elliott Other Provider Dr. Keshawn Forte Other Provider Dr. Darrion Pradhan Other Provider Unavailab ammy Wisdom CBX OPERATOR, CBX OPERATOR-C Estrellita Other Provider Dr. Kyle Roth Attending Provider Dr. Kyle Roth Other Provider Dr. Shahbaz Elliott Attending Provider Dr. Christophe Wilson Attending Provider Dr. Abner Shell Other Provider Dr. Abner Shell Attending Provider Yenifer Gonsalez MD Primary Care Provider Dr. Yenifer Gonsalez Primary Care Provider Dr. Yenifer Gonsalez Referring Provider GEOVANY Lee Attending Provider GEOVANY Lee Referring Provider Jonathan ARMENTA GEOVANY Arroyo Other Provider Dr. Abner Shell Attending Provider WALLACE TOLEDO, DR STREET Primary Care Physician WALLACE TOL[place]O, DR STREET Primary Care Unavailable FREYA TOL[place]O, DR YUNIOR Angela Attending Triny Chua MD, DR STREET Primary Care Unavailable FREYA TOL[place]O, DR YUNIOR Angela Attending Unavailab le KAPPER COMPUTER SUPPORT SPECIALIST-BEER COOLER, TRINY Arroyo Attending Unavailcoreen GONSALEZ MD, DR STREET Primary Care Unavailable FREYA TOL[place]O, DR YUNIOR Angela Admitting Unavailab ammy ELAINE MD, DR YUNIOR Angela Referring Unavailab le KAPPER COMPUTER SUPPORT SPECIALIST-BEER COOLER, TRINY Arroyo Consulting Unavaila ble Unavailable Primary Care Provider Unavailabl starla Gonsalez MD, Yenifer Vee Primary Care Provider Cabrera COMPUTER SUPPORT SPECIALIST.ENVIRONMENTAL ATTORNEY, Christa Unavailable Maryam COMPUTER SUPPORT SPECIALIST.BEER COOLER, Dione Unavailable Wallace T[place], Dr. Yenifer Vee Primary Care Provider Dr. Uche Hanson DO Emergency Provider Dr. Uche Hanson DO Attending Provider Watson T[place], Dr. Allen Emergency Provider Dena T[place], Dr. Shah Admit Provider Dena [place], Dr. Shah Attending Provider [phone] Dena [place], Dr. Shah Other Provider Dr. Alejandro Chaudhari MD Emergency Provider Dena [place], Dr. Shah Admit Provider Dena [place], Dr. Shah Attending Provider Jono T[place], Dr. Fiore Attending Provider Unavailcoreen Benites MD, Smith Other Provider Unavailable Uli [place], Dr. Barber Other Provider Darshan [place], Quiana Other Provider Unavailable Dr. Mara Tillman DO Other Provider Tanvi T[place], Dr. Stephens Other Provider Evelin T[place], Dr. Kumar Other Provider Traci T[place], Dr. Cordova Other Provider Jailene T[place], Dr. Gomes Other Provider Christophe T[place], Dr. Bess Other Provider Albin T[place]O, Dr. Porter Other Provider Santy T[place], Ariella Other Provider Edouard T[place], Dr. Mckeon Other Provider Spike TOL[place]O, Dr. Subramanian Other Provider Jimmie T[place]O, Dr. Carolina Other Provider Andriy T[place], Dr. Chico Moore Other Provider Tristen [place], Dr. Trivedi Other Provider Gini T[place], Dr. Robert Other Provider Dang [place], Dr. Perla Other Provider Keshawn T[place], Dr. Arzola Other Provider Unavailable Hank [place], Kimberly Other Provider Unavailable Jono T[place], Dr. Fiore Other Provider Unavailable Andree [place], Dr. Looney Attending Provider Maryam COMPUTER SUPPORT SPECIALIST.BEER COOLER, Dione Unavailable Dr. Adebayo De La Cruz MD Referring Provider Unavaila tenzin Cabrera COMPUTER SUPPORT SPECIALIST.ENVIRONMENTAL ATTORNEY, Christa Unavailable Dr. Yenifer Gonsalez MD Referring Provider [phone] Benito CBX OPERATOR-C, Lora Attending Provider Benito CARBAJAL-C, Lora Referring Provider Nehemias T[place], Dr. Stapleton Attending Provider Benito CARBAJAL, Lora Referring Unavailable Benito CARBAJAL, Lora Attending Unavailable Yenifer Gonsalez Primary Care Unavailable Benito CBX OPERATOR, Lora Attending Unavailable Benito CARBAJAL, Lora Referring Unavailable Yenifer Gonsalez Primary Care Unavailable Adebayo De La Cruz Referring Unavailable Adebayo De La Cruz Attending Unavailable Talampas, Yenifer D Primary Care Unavailable Uche Hanson Attending Unavailable Talampas, Yenifer D Primary Care Unavailable Adebayo De La Cruz Attending Unavailable Pablo Fernandes Consulting Unavailable Pablo Fenrandes Admitting Unavailable Talampas, Yenifer D Primary Care Unavailable Smith Benites Consulting Unavailable Adeli, Amir Consulting Unavailable Hinduja, Quiana Consulting Unavailable Primo, Mara Consulting Unavailable Zha, Kat Consulting Unavailable Evelin, José Consulting Unavailable Traci, Tasha Consulting Unavailable Bittar, Eliseo Consulting Unavailable Shahriar Saeed Consulting Unavailable German Talamantes Consulting Unavailable Ariella Madera Consulting Unavailable Mike Nunn Consulting Unavailable Marilynn Lala Consulting Unavailable Jimmie, Caity Consulting Unavailable Andriy, Lisetted Oscar Consulting UnavailFarooq Desouza Consulting Unavailable Rubalcava, Rami Consulting Unavailable Dang, Pan Consulting Unavailable Keshawn, Ness Consulting Unavailable Hank, Herisef Consulting Unavailable Benito CARBAJAL, Lora Attending Unavailable Benito CARBAJAL, Lora Referring Unavailable Talampas, Yenifer D Primary Care Unavailable Aayush Candelario Attending Unavailabl e Talampas, Yenifer D Primary Care Unavailable Benito CARBAJAL, Lora Attending Unavailable Talampas, Yenifer D Primary Care Unavailable Adebayo De La Cruz Attending Unavailable Talampas, Yenifer D Primary Care Unavailable Pablo Fernandes Consulting Unavailable Pablo Fernandes Admitting Unavailable Smith Benites Consulting Unavailable Adeli, Amir Consulting Unavailable Hinduja, Quiana Consulting Unavailable Primo, Mara Consulting Unavailable Zha, Kat Consulting Unavailable Evelin, José Consulting Unavailable Traci, Tasha Consulting Unavailable Bittar, Eliseo Consulting Unavailable Shahriar Saeed Consulting Unavailable German Talamantes Consulting Unavailable Ariella Madera Consulting Unavailable Mike Nunn Consulting Unavailable Marilynn Lala Consulting Unavailable Jimmie, Dorothyamed Consulting Unavailable Andriy, Lisetted Oscar Consulting UnavailFarooq Desouza Consulting Unavailable Rubalcava, Rami Consulting Unavailable Lorna Leonghil Consulting Unavailable Keshawn, Ness Consulting Unavailable Hank, Yousef Consulting Unavailable Adebayo De La Cruz Consulting Unavailable Pablo Fernandes Attending Unavailable Pablo Fernandes Consulting Unavailable Pablo Fernandes Admitting Unavailable Talampas, Yenifer D Primary Care Unavailable Benito CBX OPERATOR, Lora Attending Unavailable Talampas, Yenifer D Primary Care Unavailable Talampas, Yenifer D Referring Unavailable Abner Shell Attending Unavailable Talampas, Yenifer D Primary Care Unavailable Benito CBX OPERATOR, Lora Referring Unavailable Pieter Del Cid Attending Unavailable Talampas, Yenifer D Primary Care Unavailable TALAMPAS, YENIFER D Attending Unavailable TALAMPAS, YENIFER D Primary Care Unavailable TALAMPAS, YENIFER D Primary Care Unavailable CABRERA, CHRISTA Referring Unavailable TALAMPAS, YENIFER D Primary Care Unavailable CABRERA, CHRISTA Attending Unavailable TALAMPAS, YENIFER D Primary Care Unavailable TALAMPAS, YENIFER D Attending Unavailable TALAMPAS, YENIFER D Primary Care Unavailable TALAMPAS, YENIFER D Referring Unavailable TALAMPAS, YENIFER D Primary Care Unavailable CABRERA, CHRISTA Attending Unavailable TALAMPAS, YENIFER D Primary Care Unavailable TALAMPAS, YENIFER D Referring Unavailable TALAMPAS, YENIFER D Primary Care Unavailable Allergies Allergy Classification Reported Allergen(s) Allergy Type Date of Onset Reaction(s) Facility Acetaminophen / oxyCODONE (1 source) Acetaminophen / oxyCODONE Drug Allergy [address] [facility] Work Phone: Adrenergic Agonists (1 source) EPINEPHrine Drug Allergy 0 Other: See Comments [facility] Lidocaine (1 source) Lidocaine Drug Allergy 5 Other: See Comments [facility] Penicillins (antibiotic) (1 source) Penicillins Drug Allergy [address] [facility] (20 sources) Acetaminophen / oxyCODONE; Translations: [acetaminophen-ox ycodone] Drug Allergy [address] [facility] Work Phone: (20 sources) EPINEPHrine; Translations: [EPINEPHRINE] Drug Allergy 0 Other: See Comments [facility] (20 sources) Lidocaine; Translations: [LIDOCAINE HCL (LOCAL ANESTH.)] Drug Allergy 5 Other: See [facility] Work Phone: (18 sources) Penicillins; Translations: [PENICILLINS] Propensity to adverse reactions [address] [facility] Work Phone: (20 sources) Procaine Drug Allergy [address] [facility] Work Phone: [phone] (12 sources) atorvastatin Drug Allergy 2 Pain in joints [facility] (13 sources) HYDROcodone; Translations: [hydrocodone bitartrate] Drug Allergy 2 Vomiting [facility] (12 sources) Lidocaine Drug Allergy 2 tachycardia [facility] (13 sources) oxyCODONE; Translations: [oxycodone HCl] Drug Allergy 2 Vomiting [facility] (20 sources) Penicillins Propensity to adverse reactions 5 [facility] Work Phone: (10 sources) Penicillins Allergy to substance 2 Hives [facility] (3 sources) ALPRAZolam; Translations: [alprazolam] Drug Allergy VOMITING, VISION LOSS, HEARING LOSS [facility] (4 sources) Penicillins Propensity to adverse reactions 5 [facility] (1 source) atorvastatin Drug Allergy 5 [facility] (1 source) Lidocaine Drug Allergy 5 [facility] (1 source) Penicillins Drug allergy (disorder) 5 [facility] Rep[facility] Medications Current Medications Medication Drug Class(es) Dates Sig (Normalized) Sig (Original) acetaminophen 325 mg oral tablet (20 sources) Start: 08-18-2023 Tylenol Regular Strength 325 mg oral tablet Dose : 650 mg = 2 tab(s), Oral, q4hr, PRN for pain, 0 Refill(s) Start Date: 08/18/23 Status: Ordered acetaminophen (T YLENOL EX STR ARTHRITIS PAIN ORAL) Take by mouth as needed. Active acetaminophen (T YLENOL EX STR ARTHRITIS PAIN ORAL) Take by mouth as needed. 0 Active Comment on above: Take by mouth as nee ded. acetaminophen 325 mg / HYDROcodone bitartrate 5 mg oral tablet (1 source) Opioid Agonist Start: 09-15-20 End: 09-22-20 take 1-2 tablets by mouth every six hours as needed for pain [place] 325- 5 mg oral tablet See Instructions, PRN as needed for pain, 1-2 tab(s) Oral q6h, # 56 tab(s), 0 Refill(s), Pharmacy: [id number], Status post total left knee replacement, 155, cm, 09/14/23 11:47:00 EST, Height, 80.8, kg, 09/14/23 11:47:00 EST, Dosing Weight Start Date: 09/15/23 Stop Date: 09/22/23 Status: Ordered acyclovir 400 mg oral tablet (20 sources) Herpesvirus Nucleoside Analog DNA Polymerase Inhibitor, Herpes Simplex Virus Nucleoside Analog DNA Polymerase Inhibitor, Herpes Zoster Virus Nucleoside Analog DNA Polymerase Inhibitor Start: 03-13-20 take 1 tablet by mouth twice daily acyclovir (ZOVIRAX) 400 mg tablet Indications: Herpes simplex vulvovaginitis Take 1 tablet by mouth two times a day. 180 tablet 3 03/13/2025 Active Start: 07-22-2020 End: 03-17-2024 take 1 tablet by mouth twice daily acyclovir (ZOVIRAX) 400 mg tablet Indications: Herpes simplex vulvovaginitis Take 1 tablet by mouth two times a day. 180 tablet 3 03/17/2024 Active Comment on above: Take 1 tablet by nuria twice daily. [id number] actuat albuterol 0.09 mg/actuat metered dose inhaler (20 sources) beta2-Adrenergic Agonist Start: 03-04-2021 End: 08-30-2023 take 2 puff(s) by mouth four times daily as needed albuterol HFA (PROVENTIL HFA, VENTOLIN HFA) 90 mcg/actuation inhaler INHALE 2 PUFFS BY MOUTH UP TO 4 TIMES DAILY NEEDED 1 Each 1 08/30/2023 Active Start: 11-14-2016 End: 08-29-2024 albuterol (PROVENTIL) 5 mg/m L nebu Inhale 0.5 mL as instructed one time only for 1 dose. 1 DOSE NOW - BACK OFFICE. PLACE 0.5 ML PER DROPPER AND 2.5 ML OF NORMAL SALINE INTO RESERVOIR. 1 mL 11/14/2016 Active Comment on above: INHALE 2 PUFFS BY MO [facility] UP TO 4 TIMES DAILY NEEDED Inhale 0.5 mL as ins tructed one time only for 1 dose. 1 DOSE NOW - BACK OFFICE. PLACE 0.5 ML PER DROPPER AND 2.5 ML OF NORMAL SALINE INTO RESERVOIR. alendronic acid 70 mg oral tablet (20 sources) Bisphosphonate Start: 01-22-20 End: 02-23-20 take 1 tablet by mouth every week alendronate (FOSAMAX) 70 mg tablet Take 1 tablet by mouth one time a week. Take with a full glass of water, on an empty stomach; do NOT lie down for 30minutes. 12 tablet 3 02/22/2025 Active Comment on above: Take 1 tablet by nuria th one time a week. Take with a full glass of water, on an empty stomach; do NOT lie down for 30minutes. apixaban 5 mg oral tablet (20 sources) Factor Xa Inhibitor Start: 08-30-20 End: 09-04-20 take 2 tablets by mouth once daily in the morning, then take 1 tablet by mouth once daily at bedtime apixaban (ELIQUIS) 5 mg tab(s) Take 2 tablets by mouth every morning AND 1 tablet daily at bedtime. 270 tablet 3 08/30/2023 09/04/2023 Discontinued Start: 12-19-2022 End: 09-05-2024 take 1 tablet by mouth twice daily apixaban (ELIQUIS) 5 mg tab(s) Take 1 tablet by mouth two times a day. 180 tablet 3 09/05/2024 Active Comment on above: Take 1 tablet by nuria th twice daily. Take 5 mg by mouth t wice daily. Take 2 tablets by mo [facility] every morning AND 1 tablet daily at bedtime. Take 1 tablet by nuria th two times a day. biotin 1 mg oral capsule (7 sources) Start: 01-22-2025 take 1 capsule by mouth once daily Biotin 1 mg capsule Active 1 mg PO DAILY January 22, 2025 12:00am Start: 08-18-2023 Biotin 5000 mc g oral capsule Dose : 5,000 mcg = 1 cap(s), Oral, Daily, 0 Refill(s) Start Date: 08/18/23 Status: Ordered cephalexin 500 mg oral capsule (15 sources) Cephalosporin Antibacterial Start: 03-13-2025 End: 03-20-2025 take 1 capsule by mouth twice daily cephALEXin (KEFLEX) 500 mg capsule Take 1 capsule by mouth two times a day for 7 days. 14 capsule 03/13/2025 03/20/2025 Active Start: 07-13-2024 End: 07-20-2024 take 1 capsule by mouth twice daily cephALEXin (KEFLEX) 500 mg capsule Take 1 capsule by mouth two times a day for 7 days. 14 capsule 07/13/2024 07/20/2024 Active Start: 02-22-2018 End: 06-05-2019 take 1 capsule by mouth at bedtime Cephalexin 250 MG capsule Discontinued 250 mg PO AT BEDTIME February 22, 2018 12:00am June 05, 2019 2:13pm cholecalciferol 0.05 mg oral tablet (20 sources) Vitamin D Start: 01-22-2025 Cholecalcifero l (Vitamin D3) (Thera-D) 50 mcg (2,000 unit) tablet Active 50 ug PO DAILY January 22, 2025 12:00am Start: 01-26-2023 End: 11-10-2023 take 1 capsule by mouth once daily Cholecalciferol, Vitamin D3, (VITAMIN D-3) 50 mcg (2,000 unit) cap Indications: Osteopenia, unspecified location Take 1 capsule by mouth once daily. 90 capsule 11/10/2023 Active Start: 12-07-2019 End: 10-23-2020 take 2 capsules by mouth once daily Cholecalciferol, Vitamin D3, 25 mcg (1,000 unit) cap Indications: Vitamin D deficiency Take 2 capsules by mouth once daily. 60 capsule 11 12/07/2019 10/23/2020 Discontinued (Course of therapy completed) Start: 06-05-2019 End: 09-09-2021 take 1 capsule by mouth once daily Cholecalciferol (Vitamin D3) 1,000 unit capsule Discontinued 1000 U PO DAILY June 05, 2019 12:00am September 09, 2021 10:22pm Comment on above: Take 1 capsule by mo [facility] once daily. Take 1 capsule by [facility] once daily clobetasol propionate 0.5 mg/ml topical cream (20 sources) Corticosteroid Start: 12-16-2022 End: 01-22-2025 Clobetasol 0.05 % cream Discontinued 1 NMA TOPICAL DAILY December 16, 2022 12:00am January 22, 2025 5:55pm apply to vaginal area Start: 06-10-2021 End: 02-28-2024 clobetasol (TEMOVATE) 0.05 % cream Indications: Lichen sclerosus Apply 1 application to affected area once daily as needed. 60 g 5 02/28/2024 Active Start: 06-23-2019 End: 10-23-2020 clobetasol (TEMOVATE) 0.05 % cream Indications: Lichen sclerosus Apply 1 application to affected area once daily as needed. 30 g 2 06/23/2019 10/23/2020 Discontinued (Course of therapy completed) Comment on above: Apply 1 application to affected area once daily as needed. COMPOUNDED PRESCRIPTION (20 sources) Start: 06-05-2015 COMPOUNDED PRESCRIPTION Indications: Obstructive sleep apnea CPAP mask 1 Each 0 06/05/2015 Active Start: 03-05-2011 COMPOUNDED PRE SCRIPTION Indications: ELISHA (obstructive sleep apnea) CPAP mask--Mirage FX with formal mask fitting 11 Each 0 03/05/2011 Active Comment on above: CPAP mask--Mirage FX with formal mask fitting CPAP mask CPAP (20 sources) Start: 01-31-2022 CPAP Initiate CPAP @ 12 cm of water with humidification. Mask (per patient preference) optional chin strap (if indicated) , filters, tubing, humidifier and lifetime supplies. 1 Each 01/31/2022 Active Start: 01-31-2022 CPAP Initiate CPAP @ 12 cm of water with humidification. Mask (per patient preference) optional chin strap (if indicated) , filters, tubing, humidifier and lifetime supplies. 1 Each 0 01/31/2022 Active Comment on above: Initiate CPAP @ 12 c m of water with humidification. Mask (per patient preference) optional chin strap (if indicated) , filters, tubing, humidifier and lifetime supplies. Cranberry Fruit Concentrate (12 sources) Non-Standardized Food Allergenic Extract, Non-Standardized Plant Allergenic Extract Start: 06-05-20 19 take 1 tablet by mouth three times daily Cranberry Fruit Concentrate (Azo Cranberry) 250 mg tablet,chewable Active 250 MG PO THREE TIMES A DAY June 05, 2019 2:15pm Start: 06-05-2019 End: 01-22-2025 take 1 tablet by mouth three times daily Cranberry Fruit Concentrate (Azo Cranberry) 250 mg tablet,chewable Discontinued 250 mg PO THREE TIMES A DAY June 05, 2019 12:00am January 22, 2025 6:37pm Start: 06-05-2019 take 1 tablet by nuria three times daily Cranberry Fruit Concentrate (Azo Cranberry) 250 mg tablet,chewable Active 250 mg PO THREE TIMES A DAY June 05, 2019 12:00am Start: 06-05-2019 take 1 tablet by nuria th three times daily Cranberry Fruit Concentrate (Azo Cranberry) 250 mg tablet,chewable Active 250 MG PO THREE TIMES A DAY June 04, 2019 11:00pm Start: 06-05-2019 take 1 tablet by nuria th three times daily Cranberry Fruit Concentrate (Azo Cranberry) 250 mg tablet,chewable Active 250 MG PO THREE TIMES A DAY June 05, 2019 12:00am docusate sodium 50 mg / sennosides, shelter 8.6 mg oral tablet (1 source) Start: 09-15-2023 End: 09-18-2023 take 1 tablet by mouth twice daily Senokot S 50 mg-8.6 mg oral tablet Dose = 2 tab(s), Oral, BID, Take until first bowel movement, then as needed, X 3 day(s), # 12 tab(s), 0 Refill(s), Pharmacy: [id number], 155, cm, 09/14/23 11:47:00 EST, Height, kg, 09/14/23 11:47:00 EST, Dosing Weight Start Date: 09/15/23 Stop Date: 09/18/23 Status: Ordered fluticasone propionate 0.05 mg/actuat metered dose nasal spray (20 sources) Corticosteroid Start: 09-09-2021 take 50 ug nasal route once daily Fluticasone Propionate (Flonase Allergy Relief) 50 mcg/actuation spray,suspension Active 1 NMA INTRANASAL DAILY September 09, 2021 1:00am administer into each nostril Start: 09-09-2021 take 1 spray(s) nasa l route once daily Fluticasone Propionate (Flonase Allergy Relief) 50 mcg/actuation spray,suspension Active 1 SPRAY INTRANASAL DAILY September 09, 2021 1:00am administer into each nostril Start: 10-03-2020 take 2 spray(s) nasa l route once daily fluticasone (FLONASE) 50 mcg/actuation nasal spray Use 2 Sprays in each nostril once daily. for sinus drainage and genstion 1 Bottle 10/03/2020 Active Comment on above: Use 2 Sprays in each nostril once daily. for sinus drainage and genstion gabapentin 300 mg oral capsule (20 sources) Anti-epileptic Agent Start: 02-28-2024 End: 02-22-2026 take 1 capsule by mouth three times daily gabapentin (NEURONTIN) 300 mg capsule Indications: Recurrent major depressive disorder, in partial remission , Generalized anxiety disorder Take 1 capsule by mouth three times a day. 270 capsule 3 02/22/2025 02/22/2026 Active Start: 10-07-2023 End: 04-04-2024 take 1 capsule by mouth once daily in the morning, then take 1 capsule by mouth once, then take 2 capsules by mouth once daily at bedtime gabapentin (NEURONTIN) 300 mg capsule Take 1 capsule by mouth every morning AND 1 capsule every afternoon AND 2 capsules daily at bedtime. Do all this for 180 days. 360 capsule 1 10/07/2023 02/28/2024 Discontinued Start: 06-10-2021 End: 02-26-2024 take 1 capsule by mouth three times daily gabapentin (NEURONTIN) 300 mg capsule Take 1 capsule by mouth three times daily. 270 capsule 3 06/10/2021 08/28/2022 Discontinued Start: 10-29-2020 take 1 capsule by mo uth three times daily Gabapentin 400 MG capsule Active 400 mg PO THREE TIMES A DAY October 29, 2020 1:00am Start: 10-29-2020 take 1 capsule by mo uth twice daily Gabapentin 400 MG capsule Active 400 mg PO TWICE A DAY October 29, 2020 1:00am Start: 11-17-2019 End: 06-10-2021 take 1 capsule by mouth twice daily gabapentin (NEURONTIN) 300 mg capsule Take 1 capsule by mouth twice daily for 180 days. 180 capsule 1 12/04/2020 06/10/2021 Discontinued Comment on above: Take 1 capsule by mo uth three times daily. Take 1 capsule by mo uth three times a day for 180 days. Take 1 capsule by mo uth every morning AND 1 capsule every afternoon AND 2 capsules daily at bedtime. Do all this for 180 days. HAIR, SKIN AND NAILS, BIOTIN, ORAL (20 sources) take 1 capsule by mouth once daily HAIR, SKIN AND NAILS, BIOTIN, ORAL Take 1 capsule by mouth once daily. Active take 1 capsule by mouth once donell ly HAIR, SKIN AND NAILS, BIOTIN, ORAL Take 1 capsule by mouth once daily. 0 Active Comment on above: Take 1 capsule by mo uth once daily. Magnesium (4 sources) Start: 5 take 1 tablet by mouth once daily Magnesium 250 mg tablet Active 250 mg PO DAILY January 22, 2025 12:00am meclizine hydrochloride 25 mg oral tablet (20 sources) Antiemetic Start: 3 End: 5 take 1 tablet by mouth every six hours as needed meclizine (ANTIVERT) 25 mg tab Take 1 tablet by mouth every 6 hours as needed (dizziness/vertigo ). 30 tablet 1 01/24/2025 Active Start: 02-19-2023 End: 01-22-2025 take 1 tablet by mouth four times daily as needed Meclizine 25 mg tablet Active 25 mg PO 4 TIMES DAILY NEEDED January 22, 2025 12:00am Comment on above: Take 1 tablet by nuria th every 6 hours as needed (dizziness/vertigo). Mecobalamin (Vitamin B12) 1,000 mcg lozenge (4 sources) Start: take 1000 ug by mouth once daily Mecobalamin (Vitamin B12) 1,000 mcg lozenge Active 1000 ug PO DAILY January 22, 2025 12:00am allow to dissolve in mouth OR may chew lightly before swallowing 24 hr metFORMIN hydrochloride 500 mg extended release oral tablet (20 sources) Biguanide Start: take 1 tablet by mouth twice daily before mealtime metFORMIN ER (GLUCOPHAGE XR) 500 mg 24 hr tablet Indications: Controlled type 2 diabetes mellitus without complication, without long-term current use of insulin (HCC) Take 1 tablet by mouth two times a day before meals. or as directed 180 tablet 3 03/13/2025 Active Start: 01-22-2025 take 1 tablet by nuria th twice daily Metformin 500 mg tablet extended release 24 hr Active 500 mg PO TWICE A DAY January 22, 2025 12:00am Start: 09-09-2020 End: 12-24-2023 take 1 tablet by mouth twice daily Metformin 500 mg tablet extended release 24 hr Active 500 mg PO TWICE A DAY January 22, 2025 12:00am Start: 06-05-2019 End: 01-22-2025 take 1 tablet by mouth twice daily Metformin 500 mg tablet Discontinued 500 mg PO TWICE A DAY June 05, 2019 12:00am January 22, 2025 5:56pm On Hold: Hold for 1 day. Comment on above: Take 1 tablet by nuria twice daily before meals. or as directed Take 1 tablet by nuria two times a day before meals. or as directed Multivitamin (Multiple Vitamins) tablet (4 sources) Start: Multivitamin (Multiple Vitamins) tablet Active 1 {tbl} PO DAILY January 22, 2025 12:00am nitrofurantoin, macrocrystals 25 mg / nitrofurantoin, monohydrate 75 mg oral capsule (1 source) Nitrofuran Antibacterial Start: End: take 1 capsule by mouth twice daily at mealtime nitrofurantoin monohydrate and macrocrystal (MACROBID) 100 mg capsule Take 1 capsule by mouth twice daily with meals for 7 days. 14 capsule 0 10/05/2022 10/12/2022 Active Comment on above: Take 1 capsule by mo [facility] twice daily with meals for 7 days. PARoxetine hydrochloride 20 mg oral tablet (20 sources) Serotonin Reuptake Inhibitor Start: 024 End: take 2 tablets by mouth once daily in the morning, then take 0.5 tablet by mouth once daily in the evening PARoxetine (PAXIL) 20 mg tablet Indications: Generalized anxiety disorder Take 2 tablets by mouth every morning AND 0.5 tablets every evening. 225 tablet 3 02/22/2025 Active Start: 10-07-2023 End: 12-24-2023 take 1 tablet by mouth once daily in the morning, then take 1.5 tablets by mouth once daily in the evening PARoxetine (PAXIL) 20 mg tablet Indications: Generalized anxiety disorder Take 1 tablet by mouth every morning AND 1.5 tablets every evening. 225 tablet 3 10/07/2023 12/24/2023 Discontinued Start: 08-18-2023 PARoxetine 20 mg oral tablet Dose : 20 mg = 1 tab(s), Oral, BID, # 30 tab(s), 0 Refill(s) Start Date: 08/18/23 Status: Ordered Start: 04-03-2016 take 10 mg by mouth at bedtime Paroxetine Hcl 20 mg tablet Active 10 mg PO AT BEDTIME January 22, 2025 12:00am Start: 04-03-2016 End: 01-26-2023 take 1 tablet by mouth twice daily Paroxetine Hcl (Paxil) 20 MG tablet Active 20 mg PO TWICE A DAY April 03, 2016 12:00am Comment on above: Take 1 tablet by nuria th twice daily. Take 1 tablet by nuria th every morning AND 1.5 tablets every evening. Take 2 tablets by mo ut every morning AND 0.5 tablets every evening. phenazopyridine hydrochloride 200 mg oral tablet (20 sources) Start: 07-13-20 take 1 tablet by mouth every eight hours as needed phenazopyridine (PYRIDIUM) 200 mg tablet Take 1 tablet by mouth three times a day as needed. 6 tablet 07/13/2024 Active Start: 08-01-2021 End: 01-26-2023 take 1 tablet by mouth every eight hours as needed phenazopyridine (PYRIDIUM) 200 mg tablet Take 1 tablet by mouth three times daily as needed. 6 tablet 08/01/2021 08/28/2022 Discontinued Comment on above: Take 1 tablet by nuria th three times daily as needed. Take 1 tablet by nuria th three times daily as needed. As directed for UTIs rosuvastatin calcium 10 mg oral tablet (20 sources) HMG-CoA Reductase Inhibitor Start: End: take 1 tablet by mouth once daily Rosuvastatin 10 mg tablet Active 10 mg PO DAILY January 22, 2025 12:00am Start: 08-18-2023 rosuvastatin 1 0 mg oral tablet Dose : 10 mg = 1 tab(s), Oral, qDay, # 100 tab(s), 0 Refill(s) Start Date: 08/18/23 Status: Ordered Start: 01-02-2023 End: 12-09-2023 take 2 tablets by mouth once daily rosuvastatin (CRESTOR) 5 mg tablet Take 2 tablets by mouth once daily. As directed 90 tablet 3 01/02/2023 12/09/2023 Discontinued Start: 12-18-2022 End: 01-22-2025 take 2 tablets by mouth every other day Rosuvastatin (Crestor) 5 mg tablet Discontinued 10 mg PO DAILY December 18, 2022 10:31am January 22, 2025 5:56pm takes every other day if joint pain occurs Start: 05-12-2022 End: 01-02-2023 take 1 tablet by mouth once daily rosuvastatin (CRESTOR) 5 mg tablet Take 1 tablet by mouth once daily. As directed 90 tablet 3 05/12/2022 01/02/2023 Discontinued Start: 09-09-2021 End: 12-18-2022 take 1 tablet by mouth every other day Rosuvastatin (Crestor) 5 mg tablet Discontinued 5 mg PO DAILY September 09, 2021 1:00am December 18, 2022 10:32am takes every other day if joint pain occurs Start: 01-29-2021 End: 12-29-2021 take 1 tablet by mouth once daily at bedtime rosuvastatin (CRESTOR) 5 mg tablet Take 1 tablet by mouth daily at bedtime. As directed 90 tablet 1 01/29/2021 12/29/2021 Discontinued Start: 03-09-2019 End: 10-23-2020 take 1 tablet by mouth once daily rosuvastatin (CRESTOR) 10 mg tablet Indications: Pure hypercholesterolemia Take 1 tablet by mouth once daily. or as directed by Yenifer Gonsalez MD. 30 tablet 5 03/09/2019 10/23/2020 Discontinued (Discontinued by Patient) Comment on above: Take 1 tablet by nuria th daily at bedtime. As directed Take 1 tablet by nuria th every other day. As directed Take 1 tablet by nuria th once daily. As directed Take 2 tablets by mo uth once daily. As directed traMADol hydrochloride 50 mg oral tablet (2 sources) Opioid Agonist Start: 08-18-20 traMADol 50 mg oral tablet Dose : 50 mg = 1 tab(s), Oral, q12h, PRN for pain, # 12 tab(s), 0 Refill(s) Start Date: 08/18/23 Status: Ordered verapamil hydrochloride 80 mg oral tablet (20 sources) Calcium Channel César Start: 04-03-20 End: 02-23-20 take 1 tablet by mouth twice daily verapamil 80 mg tablet Indications: PSVT (paroxysmal supraventricular tachycardia) (HCC) Take 1 tablet by mouth two times a day. 180 tablet 3 02/22/2025 Active Start: 04-03-2016 End: 01-02-2023 verapamil (CALAN, ISOPTIN) 8 0 mg tablet Indications: PSVT (paroxysmal supraventricular tachycardia) ([facility]) Take one pill daily; take another pill daily as needed for heart racing 180 tablet 3 12/04/2020 01/20/2022 Discontinued Comment on above: Take one pill daily; take another pill daily as needed for heart racing Take 1 tablet by nuria twice daily. Take 1 tablet by nuria twice daily. Take one pill daily; take another pill daily as needed for heart racing vitamin b12 1 mg oral tablet (20 sources) Vitamin B12 take 1 tablet by mouth once daily cyanocobalamin (VITAMIN B-12) 1,000 mcg tab Take 1,000 mcg by mouth once daily. Active Comment on above: Take 1,000 mcg by mo [facility] once daily. Vitamin B12 1000 mcg oral tablet (3 sources) Start: 08-18-2023 Vitamin B12 1000 mcg oral tablet Dose : 1,000 mcg = 1 tab(s), Oral, qDay, # 30 tab(s), 0 Refill(s) Start Date: 08/18/23 Status: Ordered VITAMIN D3 50 MCG CAPSULE (3 sources) Start: 08-18-2023 take 1 capsule by mouth once daily VITAMIN D3 50 MCG CAPSULE VITAMIN D3 50 MCG CAPSULE, 1,000 mg, Oral, Daily, 0 Refill(s) Start Date: 08/18/23 Status: Ordered Completed/Discontinued Medications Medication Drug Class(es) Dates Sig (Normalized) Sig (Original) benzonatate 100 mg oral capsule (1 source) Non-narcotic Antitussive Start: 09-29-2021 End: 12-22-2021 benzonatate (TESSALON PERLE) 100 mg capsule Take 1-2 capsules tid prn, no more than 6 in 24 hours. 100 capsule 0 09/29/2021 12/22/2021 Discontinued (Course of therapy completed) Comment on above: Take 1-2 capsules ti d prn, no more than 6 in 24 hours. betamethasone 3 mg/ml / betamethasone acetate 3 mg/ml injectable suspension (2 sources) Corticosteroid Start: 05-17-2023 End: 05-17-2023 betamethasone acetate-betamethas one sodium phosphate 6 mg injection (CELESTONE) ciprofloxacin 3 mg/ml / dexamethasone 1 mg/ml otic suspension (3 sources) Corticosteroid, Quinolone Antimicrobial Start: 10-03-2020 End: 12-22-2021 ciprofloxacin-dexA METHasone (CIPRODEX) 0.3-0.1 % otic suspension Use 4 Drops in the right ear twice daily. 7.5 mL 10/03/2020 12/22/2021 Discontinued (Course of therapy completed) Comment on above: Use 4 Drops in the r ight ear twice daily. clorazepate dipotassium 7.5 mg oral tablet (20 sources) Benzodiazepine Start: 12-08-2020 End: 03-08-2021 take 1 tablet by mouth three times daily as needed clorazepate (TRANXENE T-TAB) 7.5 mg tablet Indications: Panic disorder without agoraphobia Take 1 tablet by mouth three times daily as needed for up to 90 days. Do not start before December 08, 2020. 90 tablet 12/08/2020 03/08/2021 Start: 09-09-2020 End: 12-04-2020 take 1 tablet by mouth three times daily as needed clorazepate (TRANXENE T-TAB) 7.5 mg tablet Indications: Panic disorder without agoraphobia Take 1 tablet by mouth three times daily as needed for up to 90 days. 90 tablet 09/09/2020 12/04/2020 Discontinued Start: 04-03-2016 End: 01-22-2025 Clorazepate Dipotassium (Tra nxene T-Tab) 7.5 mg tablet Discontinued 7.5 mg PO TWICE A DAY as needed for Anxiety September 09, 2021 1:00am January 22, 2025 5:55pm Start: 04-03-2016 End: 06-05-2019 take 1 tablet by mouth three times daily as needed for anxiety Clorazepate Dipotassium 7.5 MG tablet Discontinued 7.5 mg PO 3 TIMES DAILY NEEDED as needed for Anxiety April 03, 2016 12:00am June 05, 2019 2:14pm Comment on above: Take 1 tablet by nuria th twice daily for 90 days. Take 7.5 mg by mouth twice daily. diazePAM 5 mg oral tablet (20 sources) Benzodiazepine Start : 05-03 End: 01-22 take 1 tablet by mouth every eight hours as needed for muscle spasms Diazepam 5 mg tablet Discontinued 5 mg PO EVERY 8 HOURS as needed for Muscle Spasm May 03, 2022 12:00am January 22, 2025 6:37pm Comment on above: Take 1 tablet by nuria th every 8 hours as needed for muscle spasm. Take 1 tablet by nuria th every 8 hours as needed for muscle spasm for up to 10 days. diclofenac sodium 0.01 mg/mg topical gel (20 sources) Nonsteroidal Anti-inflammatory Drug Start : 01-02 End: 02-27 apply 4 g topically four times daily, then apply 32 g topically once daily diclofenac (VOLTAREN ARTHRITIS PAIN) 1 % topical gel 2 gram up to 4 times a day for shoulder joints; 4 gram up to 4 times a day for knee joints. No more than 32 grams total per day 200 g 2 12/24/2023 02/28/2024 Discontinued Comment on above: 2 gram up to 4 times a day for shoulder joints; 4 gram up to 4 times a day for knee joints. No more than 32 grams total per day hydroCHLOROthiazide 25 mg oral tablet (12 sources) Thiazide Diuretic Start : 11-14 End: 05-11 Hydrochlorothiazide 25 MG tablet Discontinued 25 mg PO NEEDED as needed for Swelling November 14, 2016 1:00am May 11, 2018 1:44pm 10 ml lidocaine hydrochloride 10 mg/ml injection (2 sources) Antiarrhythmic, Amide Local Anesthetic Start : 05-17 End: 05-17 lidocaine (PF) 10 mg/mL (1 %) 5 mL injection (XYLOCAINE) melatonin 3 mg oral tablet (12 sources) Start : 06-01 End: 06-05 take 1 tablet by mouth at bedtime Melatonin 3 MG tablet Discontinued 3 mg PO AT BEDTIME June 01, 2018 12:00am June 05, 2019 2:13pm naproxen 500 mg oral tablet (20 sources) Nonsteroidal Anti-inflammatory Drug Start : 06-05 End: 01-22 take 1 tablet by mouth twice daily Naproxen 500 mg tablet Discontinued 500 mg PO TWICE A DAY June 05, 2019 12:00am January 22, 2025 6:38pm On Hold: Hold it while patient taking dual antiplatelet agent Start: 06-01-2018 End: 06-05-2019 take 1 tablet by mouth every twelve hours as needed for pain Naproxen Sodium 220 MG tablet Discontinued 220 mg PO EVERY 12 HOURS NEEDED as needed for Pain June 01, 2018 12:00am June 05, 2019 2:13pm Start: 11-14-2016 End: 05-11-2018 take 1 capsule by mouth once daily Naproxen Sodium 220 MG capsule Discontinued 220 mg PO DAILY November 14, 2016 1:00am May 11, 2018 1:44pm Comment on above: Take 1 tablet by nuria twice daily as needed (for pain/inflammation). Take with food. ondansetron 4 mg disintegrating oral tablet (7 sources) Serotonin-3 Receptor Antagonist Start: 2022 End: 2024 take 1 tablet by mouth every four hours as needed for nausea Ondansetron 4 mg tablet,disintegrat ing Discontinued 4 mg PO EVERY 4 HOURS NEEDED as needed for Nausea February 19, 2023 9:58am January 22, 2025 6:38pm perflutren lipid microspheres 1.3 mL in NaCl (PF) 0.9% 10 mL injection (DEFINITY) (20 sources) Start: 2020 End: 2022 perflutren lipid microspheres 1.3 mL in NaCl (PF) 0.9% 10 mL injection (DEFINITY) predniSONE 10 mg oral tablet (6 sources) Start: 2023 End: 2023 predniSONE (DELTASONE) 10 mg tablet Indications: Injury of right wrist, initial encounter , Acute pain of right wrist Take 40 mg x 3 days, 20 mg x 3 days, 10 mg x 3 days. Take with food, once daily 21 tablet 05/19/2024 09/05/2024 Discontinued pumpkin seed extract-soy germ (AZO BLADDER CONTROL) 300 mg cap (20 sources) Start: 2018 End: 2023 take 1-3 capsules by mouth once daily, then take 1 capsule by mouth once daily pumpkin seed extract-soy germ (AZO BLADDER CONTROL) 300 mg cap Take 1-3 capsules by mouth once daily. (usually just needs 1 capsule daily) 02/15/2019 09/05/2024 Discontinued Start: 02-15-2019 take 1-3 capsules by mouth once daily, then take 1 capsule by mouth once daily pumpkin seed extract-soy germ (AZO BLADDER CONTROL) 300 mg cap Take 1-3 capsules by mouth once daily. (usually just needs 1 capsule daily) 02/15/2019 Active Start: 02-15-2019 take 1-3 capsules by mouth once daily, then take 1 capsule by mouth once daily pumpkin seed extract-soy germ (AZO BLADDER CONTROL) 300 mg cap Take 1-3 capsules by mouth once daily. (usually just needs 1 capsule daily) 0 02/15/2019 Active Comment on above: Take 1-3 capsules by mouth once daily. (usually just needs 1 capsule daily) 125 ml sodium chloride 9 mg/ml prefilled syringe (20 sources) Start: End: sodium chloride 0.9 % (flush) 10 mL (BD POSIFLUSH) sulfamethoxazole 800 mg / trimethoprim 160 mg oral tablet (1 source) Dihydrofolate Reductase Inhibitor Antibacterial, Sulfonamide Antimicrobial Start: End: take 1 tablet by mouth twice daily sulfamethoxazole-tr imethoprim (BACTRIM DS) 800-160 mg per tablet Take 1 tablet by mouth twice daily. May treat recurrent UTI 10 tablet 1 04/11/2020 10/23/2020 Discontinued (Course of therapy completed) tropicamide 10 mg/ml ophthalmic solution (1 source) Anticholinergic Start: End: tropicamide 1 % 1 Drop (MYDRIACYL) Problems Active Problems Problem Classification Problem Date Documented Da te Episodic/Chronic Acute cerebrovascular disease (20 sources) Ischemic stroke; Translations: [Cerebral infarction due to unspecified occlusion or stenosis of left posterior cerebral artery] Onset: 3 12-16-2022 Chronic Allergic reactions (12 sources) Vulval eczema; Translations: [Dermatitis, unspecified] 09-09-2021 Episodic Comment on above: biopsy done DDx: Lic hen Sclerosus, Lichen Planus, Squamous Cell CA, bechet's syndrome. await results Anxiety disorders (20 sources) Generalized anxiety disorder; Translations: [Generalized anxiety disorder] Onset: 5 Chronic Aortic; peripheral; and visceral artery aneurysms (20 sources) Aneurysm of ascending aorta; Translations: [Thoracic aortic aneurysm, without rupture] Onset: 8 07-19-2021 Chronic Blindness and vision defects (15 sources) Homonymous bilateral field defects, right side; Translations: [Right homonymous superior quadrantanopia] 12-16-2022 Episodic Blindness and vision defects (4 sources) Homonymous bilateral field defects, left side; Translations: [Left homonymous superior quadrantanopia] 01-22-2025 Episodic Cardiac dysrhythmias (20 sources) Other specified cardiac arrhythmias; Translations: [Other specified cardiac dysrhythmias] Onset: 3 08-13-2005 Chronic Cataract (2 sources) Bilateral pseudophakia; Translations: [Presence of intraocular lens] Chronic Diabetes mellitus without complication (20 sources) Type 2 diabetes mellitus without complication; Translations: [Type 2 diabetes mellitus without complications] Onset: 8 Chronic Disorders of lipid metabolism (20 sources) Pure hypercholesterolemia; Translations: [Pure hypercholesterolemia, unspecified] Onset: 4 Chronic E Codes: Fall (12 sources) Fall; Translations: [Unspecified fall, initial encounter] 02-24-2022 Episodic Essential hypertension (20 sources) Essential hypertension; Translations: [Essential (primary) hypertension] Onset: 5 06-23-2023 Chronic Genitourinary symptoms and ill-defined conditions (8 sources) Abnormal urine odor; Translations: [Unspecified abnormal findings in urine] Onset: 5 Episodic Headache; including migraine (20 sources) Migraine without aura; Translations: [Migraine without aura, not intractable, without status migrainosus] Onset: 8 09-12-2008 Chronic Immunity disorders (12 sources) Sarcoidosis; Translations: [Sarcoidosis, unspecified] 05-03-2022 Chronic Inflammation; infection of eye (except that caused by tuberculosis or sexually transmitteddisease) (1 source) Squamous blepharitis; Translations: [Squamous blepharitis right eye, upper and lower eyelids] Episodic Malaise and fatigue (1 source) Fatigue; Translations: [Other fatigue] 12-28-2023 Episodic Mood disorders (20 sources) Recurrent major depression in partial remission; Translations: [Major depressive disorder, recurrent, in partial remission] Onset: 8 12-24-2017 Chronic Nonmalignant breast conditions (2 sources) Pain of breast; Translations: [Mastodynia] Episodic Nutritional deficiencies (1 source) Vitamin D deficiency; Translations: [Vitamin D deficiency, unspecified] Chronic Osteoarthritis (20 sources) Generalized osteoarthritis of the hand; Translations: [Polyosteoarthritis, unspecified] Onset: 08-13-2005 Chronic Other aftercare (9 sources) Long-term current use of anticoagulant; Translations: [detention (current) use of anticoagulants] 09-05-2024 Episodic Other aftercare (1 source) Long-term current use of drug therapy; Translations: [Other watermelon inspector (current) drug therapy] 09-05-2024 Episodic Other aftercare (5 sources) Drug therapy finding; Translations: [detention (current) use of anticoagulants] 01-12-2025 Episodic Other and ill-defined cerebrovascular disease (9 sources) Vertigo; Translations: [Other cerebrovascular disease] 12-16-2022 Chronic Other and ill-defined cerebrovascular disease (2 sources) Other cerebrovascular disease; Translations: [Acute, but ill-defined, cerebrovascular disease] 12-16-2022 Chronic Other bone disease and musculoskeletal deformities (20 sources) Disorder of skeletal system; Translations: [Disorder of bone, unspecified] 06-14-2017 Episodic Other circulatory disease (12 sources) History of paroxysmal supraventricular tachycardia; Translations: [Personal history of other diseases of the circulatory system] 09-09-2021 Episodic Other congenital anomalies (12 sources) Disorder of spleen; 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] 09-09-2021 Chronic Other connective tissue disease (1 source) Cramp in lower limb; Translations: [Sleep related leg cramps] 09-05-2024 Chronic Other connective tissue disease (1 source) Sleep related leg cramps; Translations: [Nocturnal leg cramps] Onset: Chronic Other connective tissue disease (2 sources) Pain in bilateral legs; Translations: [Pain in right leg] Episodic Other connective tissue disease (12 sources) Spasm; Translations: [Other muscle spasm] 05-11-2022 Episodic Other connective tissue disease (1 source) Falls; Translations: [Repeated falls] Episodic Other connective tissue disease (2 sources) Pain in right arm; Translations: [Pain in right arm] Episodic Other connective tissue disease (1 source) Pain in left arm; Translations: [Pain in left arm] 05-29-2023 Episodic Other ear and sense organ disorders (20 sources) Hearing difficulty; Translations: [Unspecified hearing loss, bilateral] Onset: 7 07-11-2017 Chronic Other ear and sense organ disorders (1 source) Bilateral hearing loss; Translations: [Unspecified hearing loss, bilateral] 09-05-2024 Chronic Other ear and sense organ disorders (1 source) Unspecified hearing loss, bilateral; Translations: [Bilateral hearing loss, unspecified hearing loss type] Onset: 4 Chronic Other eye disorders (1 source) Pain around eye; Translations: [Other specified disorders of eyelid] Episodic Other eye disorders (2 sources) Tear film insufficiency; Translations: [Dry eye syndrome of bilateral lacrimal glands] Episodic Other eye disorders (1 source) Bilateral lesion of eyelids; Translations: [Unspecified disorder of eyelid] Episodic Other gastrointestinal disorders (1 source) Irritable bowel syndrome with diarrhea; Translations: [Irritable bowel syndrome with diarrhea] 09-05-2024 Chronic Other gastrointestinal disorders (1 source) Irritable bowel syndrome with diarrhea; Translations: [Irritable bowel syndrome with diarrhea] Onset: 4 Chronic Other gastrointestinal disorders (7 sources) Diarrhea; Translations: [Diarrhea, unspecified] 02-27-2023 Episodic Other hereditary and degenerative nervous system conditions (1 source) Essential tremor; Translations: [Essential tremor] 12-28-2023 Chronic Other injuries and conditions due to external causes (12 sources) Closed injury of head; Translations: [Unspecified injury of head, initial encounter] 02-24-2022 Episodic Other injuries and conditions due to external causes (2 sources) Injury of right wrist; Translations: [Unspecified injury of right wrist, hand and finger(s), initial encounter] 05-19-2024 Episodic Other injuries and conditions due to external causes (1 source) Unspecified injury of head, initial encounter; Translations: [Unspecified injury of head, initial encounter] Onset: 5 Episodic Other lower respiratory disease (2 sources) Cough; Translations: [Cough] 10-23-2020 Episodic Other lower respiratory disease (1 source) Dyspnea; Translations: [Shortness of breath] 10-23-2020 Episodic Other nervous system disorders (1 source) Bilateral carpal tunnel syndrome; Translations: [Carpal tunnel syndrome, bilateral upper limbs] Chronic Other nervous system disorders (9 sources) Unable to walk; Translations: [Difficulty in walking, not elsewhere classified] 12-16-2022 Chronic Other nervous system disorders (2 sources) Difficulty in walking, not elsewhere classified; Translations: [Difficulty in walking] 12-16-2022 Chronic Other nervous system disorders (4 sources) Tremor; Translations: [Tremor, unspecified] Episodic Other non-traumatic joint disorders (2 sources) Bilateral chronic pain of upper limbs; Translations: [Pain in right shoulder] Episodic Other non-traumatic joint disorders (2 sources) Pain in wrist; Translations: [Pain in right wrist] 05-19-2024 Episodic Other nutritional; endocrine; and metabolic disorders (20 sources) Obese class I; Translations: [Obesity, unspecified] Onset: 1 Chronic Other nutritional; endocrine; and metabolic disorders (20 sources) Simple obesity ; Translations: [Other obesity due to excess calories] Onset: 5 07-25-2015 Chronic Other nutritional; endocrine; and metabolic disorders (20 sources) Obese class II; Translations: [Obesity, unspecified] Onset: 1 07-19-2021 Chronic Other nutritional; endocrine; and metabolic disorders (20 sources) Body mass index 30+ - obesity; Translations: [Body mass index (BMI) 36.0-36.9, adult] 09-09-2021 Chronic Other nutritional; endocrine; and metabolic disorders (12 sources) Obesity; Translations: [Obesity, unspecified] 12-16-2022 Chronic Other nutritional; endocrine; and metabolic disorders (2 sources) Obesity, unspecified; Translations: [Obesity, unspecified] 12-16-2022 Chronic Other nutritional; endocrine; and metabolic disorders (20 sources) Obesity caused by energy imbalance; Translations: [Other obesity due to excess calories] Onset: 5 07-25-2015 Chronic Other nutritional; endocrine; and metabolic disorders (1 source) Body mass index (BMI) 34.0-34.9, adult; Translations: [Body mass index [BMI] 34.0-34.9, adult] Onset: 5 Chronic Other screening for suspected conditions (not mental disorders or infectious disease) (9 sources) Patient encounter status; Translations: [Encounter for screening mammogram for malignant neoplasm of breast] Episodic Other skin disorders (20 sources) Lichen sclerosus et atrophicus; Translations: [Circumscribed scleroderma] Onset: 7 Chronic Other skin disorders (1 source) Excessive sweating; Translations: [Generalized hyperhidrosis] Episodic Other upper respiratory disease (20 sources) Allergic rhinitis; Translations: [Allergic rhinitis, unspecified] 08-13-2005 Chronic Pneumonia (except that caused by tuberculosis or sexually transmitted disease) (12 sources) Pneumonia; Translations: [Pneumonia, unspecified organism] 12-16-2022 Episodic Residual codes; unclassified (20 sources) Obstructive sleep apnea syndrome; Translations: [Obstructive sleep apnea (adult) (pediatric)] Onset: 5 06-18-2015 Chronic Residual codes; unclassified (1 source) Sleep apnea; Translations: [Sleep apnea, unspecified] Onset: 3 Chronic Residual codes; unclassified (1 source) Obstructive sleep apnea (adult) (pediatric); Translations: [Obstructive sleep apnea] Onset: 5 Chronic Residual codes; unclassified (3 sources) Postmenopausal state; Translations: [Asymptomatic menopausal state] Episodic Spondylosis; intervertebral disc disorders; other back problems (5 sources) Disorder of lumbar disc; Translations: [Unspecified thoracic, thoracolumbar and lumbosacral intervertebral disc disorder] Chronic Superficial injury; contusion (5 sources) Hematoma of scalp; Translations: [Contusion of scalp, initial encounter] 01-12-2025 Episodic Syncope (6 sources) Syncope; Translations: [Syncope and collapse] Onset: 5 01-30-2025 Episodic Transient cerebral ischemia (3 sources) Cerebral ischemia; Translations: [Transient cerebral ischemic attack, unspecified] Onset: 5 06-02-2022 Chronic Unclassified (1 source) Vertigo of central origin; Translations: [Vertigo of central origin] Onset: 5 Unclassified (1 source) Chronic atrial fibrillation, unspecified; Translations: [Chronic atrial fibrillation (HCC)] Onset: 5 Unclassified (1 source) PSVT (paroxysmal supraventricular tachycardia) (HCC); Translations: [PSVT (paroxysmal supraventricular tachycardia) (HCC)] Onset: 7 Urinary tract infections (1 source) Acute cystitis without hematuria; Translations: [Acute cystitis without hematuria] Onset: 5 Episodic Viral infection (4 sources) Herpetic vulvovaginitis; 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 Past or Other Problems Problem Classification Problem Date Documented Da te Episodic/Chronic Conditions associated with dizziness or vertigo (20 sources) Vertigo; Translations: [Dizziness and giddiness] Onset: 07-02-2022 Resolved: 12-28-2022 Episodic Gastrointestinal hemorrhage (20 sources) Hematochezia; Translations: [Melena] Onset: 03-02-2006 Resolved: 05-12-2006 05-12-2006 Episodic Immunizations and screening for infectious disease (1 source) Encounter for immunization; Translations: [Encounter for immunization] Onset: 09-05-2024 Episodic Other aftercare (2 sources) detention (current) use of anticoagulants; Translations: [detention (current) use of anticoagulants] Onset: 09-05-2024 Episodic Other aftercare (1 source) Other assisted (current) drug therapy; Translations: [Encounter for long-term current use of medication] Onset: 09-05-2024 Episodic Other bone disease and musculoskeletal deformities (20 sources) Osteopenia; Translations: [Other specified disorders of bone density and structure, unspecified site] Onset: 01-26-2023 Episodic Other bone disease and musculoskeletal deformities (1 source) Other specified disorders of bone density and structure, unspecified site; Translations: [Osteopenia, unspecified location] Onset: 01-26-2023 Episodic Other connective tissue disease (20 sources) Recurrent falls ; Translations: [Repeated falls] Onset: 07-02-2022 Resolved: 12-28-2022 Episodic Other disorders of stomach and duodenum (20 sources) Disorder of function of stomach; Translations: [Other diseases of stomach and duodenum] Resolved: 05-12-2006 04-25-2018 Episodic Other fractures (20 sources) Compression fracture of lumbar spine; Translations: [Wedge compression fracture of first lumbar vertebra, subsequent encounter for fracture with routine healing] Onset: 06-24-2022 Episodic Other injuries and conditions due to external causes (1 source) Unspecified injury of right wrist, hand and finger(s), initial encounter; Translations: [Injury of right wrist, initial encounter] Onset: 05-19-2024 Episodic Other nervous system disorders (20 sources) Abnormal gait; Translations: [Unsteadiness on feet] Onset: 07-02-2022 Resolved: 12-28-2022 Episodic Other nervous system disorders (20 sources) Impairment of balance; Translations: [Other abnormalities of gait and mobility] Onset: 07-02-2022 Resolved: 12-28-2022 Episodic Other non-traumatic joint disorders (20 sources) Pain in left knee; Translations: [Pain in joint, lower leg] Onset: 10-14-2015 12-19-2018 Episodic Other non-traumatic joint disorders (1 source) Pain in right wrist; Translations: [Acute pain of right wrist] Onset: 05-19-2024 Episodic Spondylosis; intervertebral disc disorders; other back problems (20 sources) Spinal stenosis of lumbar region; Translations: [Spinal stenosis, lumbar region without neurogenic claudication] Onset: 07-02-2022 Resolved: 12-28-2022 Episodic Results Test Name Value Interpretation Reference Range Facility [facility] 03-15-2025 [facility] Telephone (INTMWS) ELIZABETH RODRIGEZ ([id number]) 1945 F Date Time Provider Department 03/15/25 YENIFER GONSALEZ INTWS During your visit today, we recorded the following information about you: Tersea Rollins LPN 03/16/2025 9:21 AM Signed Ned ARMENTA rec'd this was completed electronically and approved. Prior authorization approved Payer: [employer] [phone] Note from payer: The request has been approved. The authorization is effective from 03/16/2025 to 03/15/2026, as long as the member is enrolled in their current health plan. The request was approved as submitted. A written notification letter will follow with additional details. Approval Details Authorized from March 16, 2025 to March 15, 2026 Electronic appeal: Not supported View History Notes Time User Attachment Attachment received from payer. 03/16/2025 9:05 AM Cchs, Rx Priorauth In Document Pharmacy Benefits Open Encounter ELIZABETH RODRIGEZ MEDICARE D [id number] (MEDIMPACT) Covered: Retail, Mail Order Unknown: Specialty, Long-Term Care BIN: [id number] : 1945 Group ID: [id number] PCN: [id number] Legal sex: F Group name: Address: [address] [place], [place] [id number] Medication Being Authorized PARoxetine (PAXIL) 20 mg tablet Take 2 tablets by mouth every morning AND 0.5 tablets every evening. Dispense: 225 tablet Refills: 3 Start: 02/22/2025 Class: Normal Diagnoses: Generalized anxiety disorder This order has been released to its destination. To be filled at: [facility] [address] [place], [place] [id number] [address] [place] [phone] [facility] Allergies As of Date: 03/15/2025 Noted Allergy Reaction EPINEPHRINE 11/17/2019 14 - Other: See Comments Comments: Tachycardia, becomes incoherent PENICILLINS 08/13/2005 2 - Rash PERCOCET (OXYCODONE-ACETAMINOPHE N)05/24/2008 11 - Vomiting Comments: It makes her feel drunk XYLOCAINE (LIDOCAINE HCL (LOCAL A*08/14/2005 14 - Other: See Comments Comments: tachycardia--Not really sure if had reaction to this or if was the epinephrine Date Reviewed: 03/13/2025 Reviewed by: Fany Tobar LPN - Fully Assessed Reason for Visit: Insurance Authorization [[id number]] Prescriptions as of 03/16/2025 - acyclovir (ZOVIRAX) 400 mg tablet Take 1 tablet by mouth two times a day. - metFORMIN ER (GLUCOPHAGE XR) 500 mg 24 hr tablet Take 1 tablet by mouth two times a day before meals. or as directed - cephALEXin (KEFLEX) 500 mg capsule Take 1 capsule by mouth two times a day for 7 days. - gabapentin (NEURONTIN) 300 mg capsule Take 1 capsule by mouth three times a day. - PARoxetine (PAXIL) 20 mg tablet Take 2 tablets by mouth every morning AND 0.5 tablets every evening. - verapamil 80 mg tablet Take 1 tablet by mouth two times a day. - alendronate (FOSAMAX) 70 mg tablet Take 1 tablet by mouth one time a week. Take with a full glass of water, on an empty stomach; do NOT lie down for 30minutes. - meclizine (ANTIVERT) 25 mg tab Take 1 tablet by mouth every 6 hours as needed (dizziness/vertigo). - apixaban (ELIQUIS) 5 mg tab(s) Take 1 tablet by mouth two times a day. - rosuvastatin (CRESTOR) 10 mg tablet Take 1 tablet by mouth once daily. As directed - phenazopyridine (PYRIDIUM) 200 mg tablet Take 1 tablet by mouth three times a day as needed. - clobetasol (TEMOVATE) 0.05 % cream Apply 1 application to affected area once daily as needed. - Cholecalciferol, Vitamin D3, (VITAMIN D-3) 50 mcg (2,000 unit) cap Take 1 capsule by mouth once daily. - cyanocobalamin (VITAMIN B-12) 1,000 mcg tab Take 1,000 mcg by mouth once daily. - HAIR, SKIN AND NAILS, BIOTIN, ORAL Take 1 capsule by mouth once daily. - albuterol HFA (PROVENTIL HFA, VENTOLIN HFA) 90 mcg/actuation inhaler INHALE 2 PUFFS BY MOUTH UP TO 4 TIMES DAILY NEEDED - acetaminophen (TYLENOL EX STR ARTHRITIS PAIN ORAL) Take by mouth as needed. - CPAP Initiate CPAP @ 12 cm of water with humidification. Mask (per patient preference) optional chin strap (if indicated) , filters, tubing, humidifier and lifetime supplies. - fluticasone (FLONASE) 50 mcg/actuation nasal spray Use 2 Sprays in each nostril once daily. for sinus drainage and genstion - albuterol (PROVENTIL) 5 mg/mL nebu Inhale 0.5 mL as instructed one time only for 1 dose. 1 DOSE NOW - BACK OFFICE. PLACE 0.5 ML PER DROPPER AND 2.5 ML OF NORMAL SALINE INTO RESERVOIR. 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 Normal [facility] Bacteria Ur Culton Bacteria identified Cx Nom (U) ORGANISM ID: 1 10,000 -<50,000 CFU/ml Normal urogenital mundo Normal [facility] Comment on above: Performed By: #### 6 30-4 ####[facility] LABCLIA [id number] [place] [address] [place] Urinalysis complete panel (U )on 03-13-2025 Bacteria LM.HPF (Urine sed) [#/Area] Negative Normal Negative [facility] Comment on above: Order Comment: Speci men Type: URINE SPECIMENOrdering Facility: [facility] Address: [address] [place] [address] Performed By: #### 2 4356-8 ####[facility] LABIA [id number] [place] [address] [place] Bilirubin Ql (U) Negative Normal Negative [facility] Comment on above: Order Comment: Speci men Type: URINE SPECIMENOrdering Facility: [facility] Address: [address] [place] [address] Performed By: #### 2 4356-8 ####[facility] LABCLIA [id number] [place] [address] [place] Clarity (Unsp spec) Clear Normal Clear [facility] Comment on above: Order Comment: Speci men Type: URINE SPECIMENOrdering Facility: [facility] Address: [address] [place] [address] Performed By: #### 2 4356-8 ####[facility] LABCLIA [id number] [place] [id number] [place] Color (U) Yellow Normal Yellow [facility] Comment on above: Order Comment: Speci men Type: URINE SPECIMENOrdering Facility: [facility] Address: [address] [place] [address] Performed By: #### 2 4356-8 ####[facility] LABCLIA [id number] [address] [place] [facility] Epithelial cells LM.HPF (Urine sed) [#/Area] None Seen Normal [facility] Comment on above: Order Comment: Speci men Type: URINE SPECIMENOrdering Facility: [facility] Address: [address] [place] [address] Performed By: #### 2 4356-8 ####[facility] LABCLIA [id number] [address] [place] Glucose Test strip (U) [Mass/Vol] Negative Normal Negative [facility] Comment on above: Order Comment: Speci men Type: URINE SPECIMENOrdering Facility: [facility] Address: [address] [place] [address] Performed By: #### 2 4356-8 ####[facility] LABCLIA [id number] [place] [address] [place] Hemoglobin Ql (U) Negative Normal Negative [facility] Comment on above: Order Comment: Speci men Type: URINE SPECIMENOrdering Facility: [facility] Address: [address] [place] [address] Performed By: #### 2 4356-8 ####[facility] LABCLIA [id number] [place] [id number] [place] Hyaline casts (Urine sed) [#/Area] 0 /[LPF] Normal 0 /LPF [facility] Comment on above: Order Comment: Speci men Type: URINE SPECIMENOrdering Facility: [facility] Address: [address] [place] [address] Performed By: #### 2 4356-8 ####[facility] LABCLIA [id number] [address] [place] [address] [place] Ketones Ql (U) Negative Normal Negative [facility] Comment on above: Order Comment: Speci men Type: URINE SPECIMENOrdering Facility: [facility] Address: [address] [place] [address] Performed By: #### 2 4356-8 ####[facility] LABCLIA [id number] [address], [facility] [place] Leukocyte esterase Test strip Ql (U) Trace Abnormal Negative [facility] Comment on above: Order Comment: Speci men Type: URINE SPECIMENOrdering Facility: [facility] Address: [address] [place] [address] Performed By: #### 2 4356-8 ####[facility] LABCLIA [id number] [place] [address] [place] Nitrite Ql (U) Negative Normal Negative [facility] Comment on above: Order Comment: Speci men Type: URINE SPECIMENOrdering Facility: [facility] Address: [address] [place] [address] Performed By: #### 2 4356-8 ####[facility] LABCLIA [id number] [address], [facility] [place] pH (U) 6.0 [pH] Normal <8.5 [facility] Comment on above: Order Comment: Speci men Type: URINE SPECIMENOrdering Facility: [facility] Address: [address] [place] [address] Performed By: #### 2 4356-8 ####[facility] LABCLIA [id number] [place] [id number] [place] Protein (U) [Mass/Vol] Negative Normal Negative [facility] Comment on above: Order Comment: Speci men Type: URINE SPECIMENOrdering Facility: [facility] Address: [address] [place] [address] Performed By: #### 2 4356-8 ####[facility] LABIA [id number] [place] [address] [place] RBC LM.HPF (Urine sed) [#/Area] 0-2 /HPF Normal 0-2 /HPF [facility] Comment on above: Order Comment: Speci men Type: URINE SPECIMENOrdering Facility: [facility] Address: [address] [place] [address] Performed By: #### 2 4356-8 ####[facility] LABIA [id number] [place] [address] [place] Specific gravity (U) [Rel density] 1.011 Normal 1.005-1.030 [facility] Comment on above: Order Comment: Speci men Type: URINE SPECIMENOrdering Facility: [facility] Address: [address] [place] [address] Performed By: #### 2 4356-8 ####[facility] [id number] [place] [address] [place] Urobilinogen Ql (U) 0.2 EU/dL Normal 0.2-1.0 EU/dL [facility] Comment on above: Order Comment: Speci men Type: URINE SPECIMENOrdering Facility: [facility] Address: [address] [place] [address] Performed By: #### 2 4356-8 ####[facility] [id number] [place] [address] [place] WBC LM.HPF (Urine sed) [#/Area] 0-5 /HPF Normal 0-5 /HPF [facility] Comment on above: Order Comment: Speci men Type: URINE SPECIMENOrdering Facility: [facility] Address: [address] [place] [address] Performed By: #### 2 4356-8 ####[facility] [id number] [place] [address] [place] 25(OH)D3 SerPl-mCncon 2024 25-hydroxyvitamin D3 [Mass/Vol] 62.0 ng/mL Normal 31.0-80.0 [facility] Comment on above: Order Comment: Speci men Type: BLOOD SPECIMENOrdering Facility: [facility] Address: [address] [place] [address] Result Comment: Clas sification of 25 [place] Vitamin D status: Deficiency/Insufficiency: < or = 30 ng/ml. Sufficiency/Optimal Levels: 31-80 ng/mL Toxicity: > 100 ng/mL. Test performed by chemiluminescent immunoassay. Performed By: #### 1 989-3 ####[facility] LABCLIA [id number] [address] OF [facility] ALBUMIN/CREATININE RATIO, [facility] 03-12-2025 Albumin DL <= 20 mg/L (U) [Mass/Vol] mg/dL Normal [facility] Comment on above: Order Comment: Speci men Type: URINE SPECIMENOrdering Facility: [facility] Address: [address] [place] [address] Performed By: #### U ACR ####[facility] LABCLIA [id number] [address] [place] Albumin/Creatinine (U) [Mass ratio] <12 Normal <30 [facility] Comment on above: Order Comment: Speci men Type: URINE SPECIMENOrdering Facility: [facility] Address: [address] [place] [address] Result Comment: Adul t Male and Female Nephrotic Criteria: <30 mg/g is considered normal to mildly increased 30-300 mg/g is considered moderately increased >300 mg/g is considered severely increased KDIGO. (2013). KDIGO 2012 Clinical Practice Guideline for the Evaluation and Management of Chronic Kidney Disease. Official Journal of the International Society of Nephrology, 3(1), 1-150. Performed By: #### U ACR ####[facility] LABCLIA [id number] [address] [address] [place] Creatinine (U) [Mass/Vol] 100.0 mg/dL Normal 20.0-300.0 [facility] Comment on above: Order Comment: Speci men Type: URINE SPECIMENOrdering Facility: [facility] Address: [address] [place] [address] Performed By: #### U ACR ####[facility] LABCLIA [id number] [place] [address] [place] CBC panel Auto (Bld)on 03-12 Erythrocyte distribution width (RBC) [Ratio] 15.9 % High 11.5-15.0 [facility] Comment on above: Order Comment: Speci men Type: BLOOD SPECIMENOrdering Facility: [facility] Address: [address] [place] [address] Performed By: #### 5 8410-2 ####[facility] LABIA [id number] [place] [address] [place] Hematocrit (Bld) [Volume fraction] 43.3 % Normal 36.0-46.0 [facility] Comment on above: Order Comment: Speci men Type: BLOOD SPECIMENOrdering Facility: [facility] Address: [address] [place] [address] Performed By: #### 5 8410-2 ####[facility] LABCLIA [id number] [place] [address] [place] Hemoglobin (Bld) [Mass/Vol] 13.6 g/dL Normal 11.5-15.5 [facility] Comment on above: Order Comment: Speci men Type: BLOOD SPECIMENOrdering Facility: [facility] Address: [address] [place] [address] Performed By: #### 5 8410-2 ####[facility] LABCLIA [id number] [place] [address] [place] MCH (RBC) [Entitic mass] 30.6 pg Normal 26.0-34.0 [facility] Comment on above: Order Comment: Speci men Type: BLOOD SPECIMENOrdering Facility: [facility] Address: [address] [place] [address] Performed By: #### 5 8410-2 ####[facility] LABIA [id number] [place] [address] [place] MCHC (RBC) [Mass/Vol] 31.4 g/dL Normal 30.5-36.[address] [facility] Comment on above: Order Comment: Speci men Type: BLOOD SPECIMENOrdering Facility: [facility] Address: [address] [place] [address] Performed By: #### 5 8410-2 ####[facility] LABIA [id number] [place] [address] [place] MCV (RBC) [Entitic vol] 97.3 fL Normal 80.0-100.0 [facility] Comment on above: Order Comment: Speci men Type: BLOOD SPECIMENOrdering Facility: [facility] Address: [address] [place] [address] Performed By: #### 5 8410-2 ####[facility] LABIA [id number] [place] [address] [place] Nucleated RBC (Bld) [#/Vol] 10*3/uL Normal <0.01 [facility] Comment on above: Order Comment: Speci men Type: BLOOD SPECIMENOrdering Facility: [facility] Address: [address] [place] [address] Performed By: #### 5 8410-2 ####[facility] LABIA [id number] [place] [address] [place] Platelet mean volume (Bld) [Entitic vol] 10.9 fL Normal 9.0-12.7 [facility] Comment on above: Order Comment: Speci men Type: BLOOD SPECIMENOrdering Facility: [facility] Address: [address] [place] [address] Performed By: #### 5 8410-2 ####[facility] LABCLIA [id number] [address] [address] [place] Platelets (Bld) [#/Vol] 440 10*3/uL High 150-400 [facility] Comment on above: Order Comment: Speci men Type: BLOOD SPECIMENOrdering Facility: [facility] Address: [address] [place] [address] Performed By: #### 5 8410-2 ####[facility] LABCLIA [id number] [place] [address] [place] RBC (Bld) [#/Vol] 4.45 10*6/uL Normal 3.90-5.20 [facility] Comment on above: Order Comment: Speci men Type: BLOOD SPECIMENOrdering Facility: [facility] Address: [address] [place] [address] Performed By: #### 5 8410-2 ####[facility] LABIA [id number] [place] [address] [place] WBC (Bld) [#/Vol] 7.83 10*3/uL Normal 3.70-11.00 [facility] Comment on above: Order Comment: Speci men Type: BLOOD SPECIMENOrdering Facility: [facility] Address: [address] [place] [address] Performed By: #### 5 8410-2 ####[facility] LABIA [id number] [place] [id number] [place] Comprehensive metabolic 2000 panelon 03-12-2025 Albumin [Mass/Vol] 4.3 g/dL Normal 3.9-4.9 [facility] Comment on above: Order Comment: Speci men Type: BLOOD SPECIMENOrdering Facility: [facility] Address: [address] [place] [address] Performed By: #### 2 4323-8, 87311-5, 54325-6 ####[facility] LABCLIA [id number] [place] [address] [place] ALP [Catalytic activity/Vol] 61 U/L Normal 34-123 [facility] Comment on above: Order Comment: Speci men Type: BLOOD SPECIMENOrdering Facility: [facility] Address: [address] [place] [address] Performed By: #### 2 4323-8, 45678-6, ####[facility] LABCLIA [id number] [place] [address] [place] ALT [Catalytic activity/Vol] 29 U/L Normal 7-38 [facility] Comment on above: Order Comment: Speci men Type: BLOOD SPECIMENOrdering Facility: [facility] Address: [address] [place] [address] Performed By: #### 2 4323-8, 58366-6, ####[facility] LABCLIA [id number] [place] [address] [place] Anion gap [Moles/Vol] 15 mmol/L Normal 8-[address] [facility] Comment on above: Order Comment: Speci men Type: BLOOD SPECIMENOrdering Facility: [facility] Address: [address] [place] [address] Performed By: #### 2 4323-8, 29399-2, ####[facility] LABCLIA [id number] [place] [id number] [place] AST [Catalytic activity/Vol] 41 U/L High 13-35 [facility] Comment on above: Order Comment: Speci men Type: BLOOD SPECIMENOrdering Facility: [facility] Address: [address] [place] [address] Performed By: #### 2 4323-8, 37508-5, ####[facility] LABCLIA [id number] [place] [id number] [place] Bilirubin [Mass/Vol] 0.2 mg/dL Normal 0.2-1.3 [facility] Comment on above: Order Comment: Speci men Type: BLOOD SPECIMENOrdering Facility: [facility] Address: [address] [place] [address] Performed By: #### 2 4323-8, , ####[facility] LABCLIA [id number] [facility] [address] [address] [place] Calcium [Mass/Vol] 9.7 mg/dL Normal 8.5-10.2 [facility] Comment on above: Order Comment: Speci men Type: BLOOD SPECIMENOrdering Facility: [facility] Address: [address] [place], [place] [address] Performed By: #### 2 4323-8, , ####[facility] LABCLIA [id number] [facility]ENTERK [place] [id number] [place] Chloride [Moles/Vol] 101 mmol/L Normal 98-107 [facility] Comment on above: Order Comment: Speci men Type: BLOOD SPECIMENOrdering Facility: [facility] Address: [address] [place] [address] Performed By: #### 2 4323-8, , ####[facility] LABCLIA [id number] [facility] CENT[facility] [address] [address] [place] CO2 [Moles/Vol] 23 mmol/L Normal 22-30 [facility] Comment on above: Order Comment: Speci men Type: BLOOD SPECIMENOrdering Facility: [facility] Address: [address] [place] [address] Performed By: #### 2 4323-8, , ####[facility] LABCLIA [id number] [facility] AVENUEDESK [address] [address] [place] Creatinine [Mass/Vol] 0.82 mg/dL Normal 0.58-0.[address] [facility] Comment on above: Order Comment: Speci men Type: BLOOD SPECIMENOrdering Facility: [facility] Address: [address] [place] [address] Performed By: #### 2 4323-8, 49499-1, ####[facility] LABIA [id number] [place] [address] [place] Creatinine and Glomerular filtration rate.predicted panel (S/P/Bld) 74 mL/min/1.73m??? Normal >=60 [facility] Comment on above: Order Comment: Severino perdomo Type: BLOOD SPECIMENOrdering Facility: [facility] Address: [address] [place] [address] Result Comment: Dione mated Glomerular Filtration Rate (eGFR) is calculated using the 2020 CKD-EPI creatinine equation. This equation utilizes serum creatinine, sex, and age as parameters. The creatinine assay has traceable calibration to isotope dilution-mass spectrometry. Refer to KDIGO guidelines for clinical interpretation. In patients with unstable renal function, e.g. those with acute kidney injury, the eGFR may not accurately reflect actual GFR. Performed By: #### 2 4323-8, 28770-9, ####[facility] LABIA [id number] [place] [id number] [place] Glucose [Mass/Vol] 101 mg/dL High 74-99 [facility] Comment on above: Order Comment: Severino perdomo Type: BLOOD SPECIMENOrdering Facility: [facility] Address: [address] [place] [address] Result Comment: The [place] Diabetes Association (ADA) provides guidance for cutoff values for fasting glucose and random glucose. The ADA defines fasting as no caloric intake for at least 8 hours. Fasting plasma glucose results between 100 to 125 mg/dL indicate increased risk for diabetes (prediabetes). Fasting plasma glucose results greater than or equal to 126 mg/dL meet the criteria for diagnosis of diabetes. In the absence of unequivocal hyperglycemia, results should be confirmed by repeat testing. In a patient with classic symptoms of hyperglycemia or hyperglycemic crisis, random plasma glucose results greater than or equal to 200 mg/dL meet the criteria for diagnosis of diabetes. Reference: Standards of Medical Care in Diabetes 2016, [place] Diabetes Association. Diabetes Care. 2016.39(Suppl 1). Performed By: #### 2 4323-8, 69602-3, ####[facility] LABCLIA [id number] [address] [address] [place] Potassium [Moles/Vol] 4.5 mmol/L Normal 3.7-5.[address] [facility] Comment on above: Order Comment: Speci men Type: BLOOD SPECIMENOrdering Facility: [facility] Address: [address] [place] [address] Performed By: #### 2 4323-8, 15974-7, ####[facility] LABCLIA [id number] [address] [address] [place] Protein [Mass/Vol] 7.3 g/dL Normal 6.3-8.0 [facility] Comment on above: Order Comment: Speci men Type: BLOOD SPECIMENOrdering Facility: [facility] Address: [address] [place], [place] [address] Performed By: #### 2 4323-8, , ####[facility] LABCLIA [id number] [address] [address] [place] Sodium [Moles/Vol] 139 mmol/L Normal 136-144 [facility] Comment on above: Order Comment: Speci men Type: BLOOD SPECIMENOrdering Facility: [facility] Address: [address] [place] [address] Performed By: #### 2 4323-8, , ####[facility] LABCLIA [id number] [address] [address] [place] Urea nitrogen [Mass/Vol] 12 mg/dL Normal 7-21 [facility] Comment on above: Order Comment: Speci men Type: BLOOD SPECIMENOrdering Facility: [facility] Address: [address] [place] [address] Performed By: #### 2 4323-8, 40188-4, 47910-2 ####[facility] LABIA [id number] [place] [id number] [facility] HbA1c (Bld)on 03-12-2025 Average glucose Estimated from glycated hemoglobin (Bld) [Mass/Vol] 148 mg/dL Normal [facility] Comment on above: Order Comment: Severino men Type: BLOOD SPECIMENOrdering Facility: [facility] Address: [address] [place] [address] Result Comment: eAG: (Estimated average glucose) is a calculated value from HgbA1c and is member services representative of the average blood glucose level in the last 2-3 month period. Performed By: #### 5 5454-3 ####[facility] LABIA [id number] [address] STATES OF [facility] HbA1c (Bld) [Mass fraction] 6.8 % High 4.3-5.6 [facility] Comment on above: Order Comment: Severino perdomo Type: BLOOD SPECIMENOrdering Facility: [facility] Address: [address] [place] [address] Result Comment: Amer [place] Diabetes Association guidelines indicate that patients with HgbA1c in the range 5.7-6.4% are at increased risk for development of diabetes, and intervention by lifestyle modification may be beneficial. HgbA1c greater or equal to 6.5% is considered diagnostic of diabetes. Performed By: #### 5 5454-3 ####[facility] LABIA [id number] [facility]ENT[facility] [address] [address] [facility] [place] Lipid 1996 panelon 5 Cholesterol [Mass/Vol] 131 mg/dL Normal <200 [facility] Comment on above: Order Comment: Severino perdomo Type: BLOOD SPECIMENOrdering Facility: [facility] Address: [address] [place] [address] Result Comment: <200 mg/dL, Desirable 200-239 mg/dL, Borderline high >239 mg/dL, High Performed By: #### 2 4323-8, 05378-6, ####[facility] LABCLIA [id number] [place] [id number] [place] Cholesterol in HDL [Mass/Vol] 40 mg/dL Normal >39 [facility] Comment on above: Order Comment: Speci men Type: BLOOD SPECIMENOrdering Facility: [facility] Address: [address] [place] [address] Result Comment: 40-5 9 mg/dL, Acceptable >59 mg/dL, High: Negative risk factor for coronary heart disease <40 mg/dL, Low: Positive risk factor for coronary heart disease Performed By: #### 2 4323-8, , ####[facility] LABCLIA [id number] [address] STATES [facility] Cholesterol in LDL [Mass/Vol] 65 mg/dL Normal <100 [facility] Comment on above: Order Comment: Speci men Type: BLOOD SPECIMENOrdering Facility: [facility] Address: [address] [place] [address] Result Comment: <100 mg/dL, Optimal 100-129 mg/dL, Near optimal/above optimal 130-159 mg/dL, Borderline high 160-189 mg/dL, High >189 mg/dL, Very high Secondary prevention optimal LDL Cholesterol levels are recommended to be <70 mg/dL LDL cholesterol is calculated using the Xiao-NIH equation. Performed By: #### 2 4323-8, 20542-2, ####[facility] LABIA [id number] [place] [id number] [place] Cholesterol in LDL/Cholesterol in HDL [Mass ratio] 1.63 {ratio} Normal <2.54 [facility] Comment on above: Order Comment: Speci men Type: BLOOD SPECIMENOrdering Facility: [facility] Address: [address] [place] [address] Result Comment: Refe rence: 1. National Cholesterol Education Program ATP III Guideline At-A-Glance Quick Desk Reference: National Heart, Lung, and Blood [place]. National Institutes of Health. 2001: NIH Publication No. 01-3305. 2. An International Atherosclerosis Society position paper: global recommendations for the management of dyslipidemia: executive summary, Atherosclerosis. 2014: 232(2):410-413. Performed By: #### 2 4323-8, 99895-3, ####[facility] LABCLIA [id number] [address] [address] [place] Cholesterol in VLDL [Mass/Vol] 23 mg/dL Normal <30 [facility] Comment on above: Order Comment: Speci men Type: BLOOD SPECIMENOrdering Facility: [facility] Address: [address] [place] [address] Performed By: #### 2 4323-8, 72639-0, ####[facility] LABCLIA [id number] [address] [address] [place] Cholesterol non HDL [Mass/Vol] 91 mg/dL Normal <130 [facility] Comment on above: Order Comment: Speci men Type: BLOOD SPECIMENOrdering Facility: [facility] Address: [address] [place] [address] Result Comment: <130 mg/dL, Optimal 130-159 mg/dL, Near optimal/above optimal 160-189 mg/dL, Borderline high 190-219 mg/dL, High >219 mg/dL, Very high Secondary prevention optimal non HDL Cholesterol levels are recommended to be <100 mg/dL Performed By: #### 2 4323-8, 28671-8, ####[facility] LABCLIA [id number] [address] [address] [place] Cholesterol.total/Mihaela sterol in HDL [Mass ratio] 3.28 {ratio} Normal <5.10 [facility] Comment on above: Order Comment: Speci men Type: BLOOD SPECIMENOrdering Facility: [facility] Address: [address] [place] [address] Performed By: #### 2 4323-8, 33339-8, ####[facility] LABCLIA [id number] [address] [place] [address] [place] FASTING TIME 12 hrs Normal [facility] Comment on above: Order Comment: Speci men Type: BLOOD SPECIMENOrdering Facility: [facility] Address: [address] [place], [place] [address] Performed By: #### 2 4323-8, 46695-2, ####[facility] LABCLIA [id number] [address] [place] [address] [place] Triglyceride [Mass/Vol] 153 mg/dL High <150 [facility] Comment on above: Order Comment: Speci men Type: BLOOD SPECIMENOrdering Facility: [facility] Address: [address] [place] [address] Result Comment: <150 mg/dL, Normal 150-199 mg/dL, Borderline high 200-499 mg/dL, High >499 mg/dL, Very high Performed By: #### 2 4323-8, 05316-5, ####[facility] LABCLIA [id number] [address] [address] [place] Magnesium SerPl-mCncon 03-12 Magnesium [Mass/Vol] 2.3 mg/dL Normal 1.7-2.3 [facility] Comment on above: Order Comment: Speci men Type: BLOOD SPECIMENOrdering Facility: [facility] Address: [address] [place], [place] [address] Performed By: #### 2 4323-8, 80498-4, ####[facility] LABCLIA [id number] [address] [address] [place] Bedside Glucoseon 03-08-2025 FINGERSTICK GLU 86 mg/dL Normal 74-106 [facility] Comment on above: Result Comment: Snac k Given MANAGEMENT OF PATIENT CARE PER NURSING PROTOCOL Performed By: #### L 501.080 #### [facility] Laboratory [address] [place], [address] Duplex ultrasound of carotid artery reportOrdered By: Pieter Del Cid on 03-05-2025 Study report [facility] [address] [place] [address] Carotid Duplex Ultrasound 03/02/25 1410 MR#: [id number] Acct: [id number] Name: ELIZABETH RODRIGEZ Rep #:[id number] : 1945 79 From: Pieter Vee Attending Dr: Lora Oliver, CBX OPERATOR-C S tatus: REG CLI Ordering Dr: Lora Oliver NP CBX OPERATOR-C Kareem e: 03/02/25 Location: CVS Sex: F C Admitted: Reason For Study Reason For Study: Lightheadness Rt. Velocities/BP Lt. Velocities/BP Prox CCA 42.1/7.2 cm/sec. Prox CCA 53.5/10.0 cm/sec. Mid CCA 55.4/11.0 cm/sec. Mid CCA 70.5/13.8 cm/sec. Dist CCA 96.5/10.6 cm/sec. Dist CCA 61.0/11.9 cm/sec. Prox ICA 73.2/10.6 cm/sec. Prox ICA 68.3/17.9 cm/sec. Mid ICA 54.8/11.8 cm/sec. Mid ICA 75.6/17.9 cm/sec. Dist ICA 55.6/11.7 cm/sec. Dist ICA 50.9/12.8 cm/sec. Rt. ICA/CCA = 1.3. Lt. ICA/CCA = 1.1. Prox ECA 92.4/6.6 cm/sec. Prox ECA 50.7/3.5 cm/sec. Rt. Vert. 32.7/7.2 cm/sec. Lt. Vert. 27.6/7.5 cm/sec. Right Extracranial There is intimal thickening but no significant atherosclerotic plaque noted in the right common carotid artery. There is homogeneous, smooth atherosclerotic plaque noted in the right internal carotid artery. There is intimal thickening but no significant atherosclerotic plaque noted in the right external carotid artery. Antegrade flow is noted in the right vertebral artery. Left Extracranial There is heterogeneous, irregular atherosclerotic plaque noted in the left common carotid artery. There is heterogeneous, irregular atherosclerotic plaque noted in the left internal carotid artery. There is intimal thickening but no significant atherosclerotic plaque noted in the left external carotid artery. Antegrade flow is noted in the left vertebral artery. Procedure Carotid Duplex 59016. This is a Carotid Duplex examination using B-mode, color flow and specral Doppler. Exam performed in department. VL/Carotid Duplex Ultrasound Interpretation Summary Mild (<50%) stenosis right extracranial internal carotid. Mild (<50%) stenosis left extracranial internal carotid. Patent and antegrade vertebrals bilaterally. Ordering Physician: Lora Oliver Referring Physician: Yenifer Gonsalez M.D. Performed By: Vanessa Hammond, UZIEL 03/05/25 0758 Date _ Pieter Del Cid MD CC: CBX OPERATOR-C Lora Oliver; Dr. Yenifer Gonsalez MD ~ Date Dictated: 03/02/25 1410 Date Transcribed: 03/05/25757 Home Therapy Clinician: Signed [facility] Work Phone: Carotid Duplex Ultrasoundon 03-02-2025 Carotid Duplex Ultrasound [facility] [address] [facility] [place] [address] Carotid Duplex Ultrasound 03/02/25 1410 MR#: [id number] Acct: [id number] Name: ELIZABETH RODRIGEZ Rep #: [id number] : 1945 79 From: Pieter Del Cid MD Attending Dr: Lora Oliver CBX OPERATOR-C Status: REG C Ordering Dr: Lora Oliver NP CBX OPERATOR-C Date: 03/02/25 Location: CVS Sex: F C Admitted: Reason For Study Reason For Study: Lightheadness Rt. Velocities/BP Lt. Velocities/BP Prox CCA 42.1/7.2 cm/sec. Prox CCA 53.5/10.0 cm/sec. Mid CCA 55.4/11.0 cm/sec. Mid CCA 70.5/13.8 cm/sec. Dist CCA 96.5/10.6 cm/sec. Dist CCA 61.0/11.9 cm/sec. Prox ICA 73.2/10.6 cm/sec. Prox ICA 68.3/17.9 cm/sec. Mid ICA 54.8/11.8 cm/sec. Mid ICA 75.6/17.9 cm/sec. Dist ICA 55.6/11.7 cm/sec. Dist ICA 50.9/12.8 cm/sec. Rt. ICA/CCA = 1.3. Lt. ICA/CCA = 1.1. Prox ECA 92.4/6.6 cm/sec. Prox ECA 50.7/3.5 cm/sec. Rt. Vert. 32.7/7.2 cm/sec. Lt. Vert. 27.6/7.5 cm/sec. Right Extracranial There is intimal thickening but no significant atherosclerotic plaque noted in the right common carotid artery. There is homogeneous, smooth atherosclerotic plaque noted in the right internal carotid artery. There is intimal thickening but no significant atherosclerotic plaque noted in the right external carotid artery. Antegrade flow is noted in the right vertebral artery. Left Extracranial There is heterogeneous, irregular atherosclerotic plaque noted in the left common carotid artery. There is heterogeneous, irregular atherosclerotic plaque noted in the left internal carotid artery. There is intimal thickening but no significant atherosclerotic plaque noted in the left external carotid artery. Antegrade flow is noted in the left vertebral artery. Procedure Carotid Duplex 73991. This is a Carotid Duplex examination using B-mode, color flow and specral Doppler. Exam performed in department. VL/Carotid Duplex Ultrasound Interpretation Summary Mild (<50%) stenosis right extracranial internal carotid. Mild (<50%) stenosis left extracranial internal carotid. Patent and antegrade vertebrals bilaterally. Ordering Physician: Lora Oliver Referring Physician: Yenifer Gonsalez M.D. Performed By: Vanessa Hammond, RVSo 03/05/25 0758 Date Pieter Del Cid MD CC: SUSAN Oliver; Dr. Yenifer Gonsalez MD Date Dictated: 03/02/25 1410 Date Transcribed: 03/05/25757 Home Therapy Clinician: Signed Normal [facility] deOrdered By: Lora Oliver on 03-02-2025 Glucose [Mass/Vol] 86 mg/dL 74-106 [facility] Comment on above: Snack GivenMANAGEMEN T OF PATIENT CARE PER NURSING PROTOCOL Cardiology Visit Reporton Cardiology Visit Report [facility] [address] [place] [address] OFFICE VISIT Date of Service: 02/16/25 MR#: [id number] Acct: [id number] Name: ELIZABETH RODRIGEZ Rep #: [id number] : 1945 Provider: SUSAN Soto rts Age/Sex: 79/F Location: [facility] Status: Signed HPI HPI History of Present Illness Details: Elizabeth Rodrigez is a 79-year-old female who presents here today for cardiovascular follow-up visit. Patient was last seen in the office in May 2023. She was seen by cardiology during a hospital stay for an acute CVA in November 2022. She was noted to have paroxysmal atrial fibrillation while in the hospital. Patient did undergo an echocardiogram which did demonstrate an ejection fraction of 65%. Left atrium severely enlarged. Mild aortic valve insufficiency. Mildly dilated aortic root. Patient did convert to sinus rhythm prior to discharge. She was discharged home on Eliquis. She does have a history of hypertension, hyperlipidemia, diabetes, obstructive sleep apnea with CPAP and history of sarcoidosis. Patient presented to the emergency room on 01/22/2025 with a syncopal episode. Her EKG at that time demonstrated normal sinus rhythm with heart rate of 87 bpm. She was admitted for observation, and a stroke workup. Her MRI was negative for acute CVA. She was thought to have vertigo. She underwent an echocardiogram on 01/22/2025, which demonstrated an ejection fraction of 70%, no wall motion abnormality was noted. She states that she did not have vertigo, but was at the [facility], and had a syncopal episode. From a cardiac standpoint, the patient is doing well. She denies any palpitations, chest pain, pressure or heaviness. She denies SOB, Orthopnea, and PND. She does not have bleeding issues; no blood in urine, stool, or nosebleeds. She does acknowledge a decrease in energy level. She denies myalgias, or claudication. She does not have edema, or sudden weight gain. She does acknowledge lightheadedness. She states that she did have an episode of dizziness, prior to her syncopal episode. Intake Vital Signs 01/22/25 21:39 02/16/25 07:20 Height 5 ft 1 in 5 ft 1 in Weight: 176 lb BMI 33.2 BP 144/91 H Blood Pressure Location Lt brachial Position Sitting Respiration 18 Pulse 85 Pulse Source Monitor Pulse Oximetry (%) 96 Intake Visit Reasons: OVERDUE FOR OV/LAST SEEN 06/19 Welder Plasma Arc Required: No Is patient in pain?: No Allergies lidocaine Allergy (Intermediate, Verified 02/16/25 15:05) tachycardia Penicillins Allergy (Verified 02/16/25 15:05) Hives atorvastatin Adverse Reaction (Verified 02/16/25 15:05) Pain in joints hydrocodone bitartrate (From Vicodin) Adverse Reaction (Verified 02/16/25 15:05) Vomiting oxycodone HCl (From Percocet) Adverse Reaction (Verified 02/16/25 15:05) Vomiting Medications ???Medication ???Instructions ???Recorded ???Confirmed ???Type paroxetine HCl 20 mg tablet (Paxil) 40 mg PO DAILY DEPRESSION 04/0302/16/25 History verapamil 80 mg tablet 80 mg PO BID HEART 04/03/16 History gabapentin 400 mg capsule 400 mg PO TID nerve pain 10/29/20 02/16/25 History fluticasone propionate 50 1 spray intranasal DAILY 09/09/21 02/16/25 History mcg/actuation nasal spray,suspension (Flonase Allergy Relief) apixaban 5 mg tablet (Eliquis) 5 mg PO BID 30 days #60 tabs 12/1902/16/25 Rx biotin 1 mg capsule 1 mg PO DAILY 01/22/25 02/16/25 Hi story cholecalciferol (vitamin D3) 50 50 mcg PO DAILY 01/22/25 02/16/25 History mcg (2,000 unit) tablet (Thera-D) magnesium 250 mg tablet 250 mg PO DAILY 01/22/25 02/16/25 History meclizine 25 mg tablet 25 mg PO 4X/DAY PRN Dizziness 12/2702/16/25 History mecobalamin (vitamin B12) 1,000 1,000 mcg PO DAILY 01/22/25 History mcg lozenges metformin 500 mg tablet,extended 500 mg PO BID 01/22/25 02/16/25 Hi story release 24 hr multivitamin (Multiple Vitamins 1 tab PO DAILY 01/22/25 02/16/25 H istory tablet) paroxetine HCl 20 mg tablet 10 mg PO QHS 01/22/25 02/16/25 His tory rosuvastatin 10 mg tablet 10 mg PO DAILY 01/22/25 02/16/25 H istory Have you fallen in the past year?: Yes 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 Arthritis Obesity Hyperlipidemia Vulvar dermatitis Lichen sclerosus Diabetes Sarcoidosis Spleen anomaly Splenomegaly History of blood clots Sleep apnea Hemorrhoids BMI 36.0-36.9,adult History of PSVT (paroxysmal supraventricular tachycardia) Aguilera (more content not included)... Normal [facility] Inital Evaluation (1) - PTon 01-31-2025 Inital Evaluation (1) - PT [facility] Physical Therapy [facility] [address] [place] [address]. [address] [place] [address] / REHABILITATION SERVICES INITIAL EVALUATION MR#: [id number] Acct: [id number] Name: ELIZABETH RODRIGEZ Rep #: [id number] : 1945 79 From: Pieter Hernandez DPT, OCS, CSCS Referring Dr.: Dr. Adebayo De La Cruz MD Status: REG RCR Insurance: [employer] SELF PAY INSURANCE Patient's Visit Information Visit Information Visit Information: ELIZABETH RODRIGEZ is a 79 year old F referred to Physical Therapy by Dr. Adebayo De La Cruz MD with a diagnosis of vestibular. Date of Evaluation: 01/31/25 Physical Therapist: Pieter Hernandez DPT, OCS, CSCS Visit Plan Plan: No skilled intervention needed today. Vestibular system looks clear. doctor thinks it was a TIA and is seeing neuro for that. May be appropriate to be sent back for ex therapy after cleared by neuro with appropriate TIA or other treatment. Subjective Subjective: Hospital doctors decided vertigo may be problem. Had it in past and was better. 9 days ago was at [employer] and collapsed from passing out for short time and hit ground. No injuries. Went to hospital and had CATSCAN due to TIA in 2022 which may have happened again. Symptoms at collapse were things going black and spinning and eyes were moving. Was looking straight ahead. Hospital said may have had TIA and given meclizine if gets dizzy. Sick for 3 days afteer hospital. No problems with dizzy or passing out since. heart was checked in hospital and was OK. Sleeping OK, Activities are normal but is cautious due to lack of reeasoning for symptoms. Not employed. Objective Objective: Walks into PT I without AD. trasers chair and bed I. FGA taken without AD and did well for age. cervical AROM WFL adn without pain. UE AROM WFL. Streength UE 4-/5. Steps reciprocal with one rail up and down. - B hallpike tory - roll tests. Oculomotor: unremarkable no nystagmus today with gaze or had shake - ocular tilt - skew eye deviation - head thrust. normal and asymptomatic pursuit and saccades and VOR, MSQ positions aree not dizzy except quickly up from both HD positions.( hypotensive?) Fairly normal vestibular xam today. Balance/Special Test Scores Functional Gait Assessment Score: 25 % Disability: 16.6700 Dizziness Score: 22 Rehabilitation Potential Physical Therapy Diagnosis: Pt doing well with normal vestibular testing today Anticipated Interventions Text: Thank you for the opportunity to evaluate your patient. For Medicare and Medicare HMO plans, please review the plan of care and approve it. It will need to be FAXED BACK to us at [phone] for Medicare purposes. For Medicare only, by signing this I certify the plan of care. Please let me know if there are questions or concerns regarding this plan of care. Physician Signature: Date: 01/31/25 1418 CC: Dr. Adebayo De La Cruz MD; Dr. Yenifer Gonsalez MD EB Signed Normal [facility] CNOVon 01-30-2025 CNOV Office Visit (INTMWS ) ELIZABETH RODRIGEZ ([id number]) 1945 F Date Time Provider Department 01/30/25 10:20 AM CHRISTA CABRERA INTMWS During your visit today, we recorded the following information about you: Pulse Blood pressure Weight 76/minute 125/80 79.6 kg Christa Cabrera APRN.ENVIRONMENTAL ATTORNEY 01/30/2025 11:26 AM Signed SUBJECTIVE: DTaP,Tdap,Td Vaccine(1 - Tdap) Never done Shingrix Vaccine(1 of 2) Never done RSV Vaccine(1 - 1-dose 75+ series) Never done Diabetic Foot Exam due on 03/11/2023 Advance Directive Discussion due on 09/27/2024 SILAS Rodrigez is a 79 year old female.Past medical history significant for ACTIVE PROBLEM LIST Disorder of Bone and Cartilage Allergic Rhinitis, Cause Unspecified Generalized Anxiety Disorder Recurrent Major Depressive Disorder, in Partial Remission Pure Hypercholesterolemia Generalized Osteoarthrosis, Involving Hand Other Specified Cardiac Dysrhythmias(427.89) Panic Disorder Without Agoraphobia Migraine Without Aura, Without Mention of Intractable Migraine Without Mention of Status Migrainosus Ascending Aortic Aneurysm Elisha On Cpap Non Morbid Obesity Due to Excess Calories Primary Osteoarthritis of Both Knees Chronic Pain of Left Knee Psvt (Paroxysmal Supraventricular Tachycardia) ([facility]) Lichen Sclerosus Hearing Difficulty of Both Ears Controlled Type 2 Diabetes Mellitus Without Complication, Without Long-Term Current Use of Insulin ([facility]) Chronic Pain of Right Knee Obesity, Class I, Bmi 30-34.9 Compression Fracture of L1 Lumbar Vertebra ([facility]) Cerebrovascular Accident (Cva) ([facility]) Osteopenia Paf (Paroxysmal Atrial Fibrillation) ([facility]) Presents for hospital discharge follow-up visit. She was seen at [facility] for head injury. She reported that she was in the shower when she was struck by a showerhead in her head. She reports that she felt dazed and saw black for a second. She reported the injury caused her to lose control of her bowels. She reported injury occurred about 2 and half hours before examination in the ER. No vomiting. Hematoma is present on the back of her head. Brain CT was completed and showed no acute findings. A hematoma was noted on the exam in the ER. She was seen at [facility] January 22 through January 23 for a TIA. She presented with acute onset of vertigo and was admitted to a monitored bed for further evaluation. Consult placed for neurology. MRI was completed and negative for acute CVA. Teleneurologist recommended continuation of systemic anticoagulation, meclizine as needed and vestibular therapy. Brain CT on January 22 showed no acute intracranial findings. Chronic microvascular ischemic changes and age-related changes are present. Head and neck CTA showed no large vessel occlusion no AVM or aneurysm. No stenosis of the cervical carotid arteries present. Brain MRI showed no specific evidence of an acute intracranial process. Referral was placed for physical therapy. . Head Trauma: - Sustained head trauma from a shower head falling on the back of her head. - Resulted in a hematoma, initially soft, now described as small and hard. - No associated headaches. Syncope: - Reports recent [place], preceded by vertigo and loss of consciousness for approximately one minute, witnessed. - Denies it was a fall; describes it as a collapse straight downward. - No chest pain, dyspnea, or palpitations reported prior or during the event. - No loss of bowel or bladder control. - Double vision occurred during the episode, resolved within 1-1.5 hours. - Has a history of severe vertigo, previously treated with physical therapy. - Currently taking meclizine PRN. - No further episodes of dizziness or syncope since hospital discharge. - Scheduled for physical therapy at [facility] tomorrow. AFib: - Diagnosed with AFib, noted during recent hospitalization but resolved spontaneously. - No recent follow-up with cardiology; last seen by Dr. Mendieta approximately three years ago. - Taking Eliquis regularly. Gastroenteritis: - Developed vomiting and diarrhea for over three days post-hospitalization. - Managed with Imodium AD, Pepto-Bismol, and Rolaids. - Consumed only dry toast during this period. - Symptoms have resolved. ROS Head: (-) headache Eyes: (-) diplopia Ears/Nose/Mouth/Throat: (+) hearing changes Cardiovascular: (-) chest pain, (-) palpitations Respiratory: (-) shortness of breath Gastrointestinal: (-) vomiting, (-) diarrhea Neurological: (-) dizziness, (-) syncope Objective BP 125/80 Pulse 76 Wt 79.6 kg (175 lb 7.8 oz) SpO2 96% BMI 33.78 kg/m? Physical Exam Vitals and nursing note reviewed. HENT: Head: Normocephalic and atraumatic. Comments: small mass on right side occiput, nontender Right Ear: Hearing normal. Left Ear: Hearing (more content not included)... Normal [facility] Absolute lymphocyte countOrd ered By: Pablo Fernandes on 01-23-2025 Lymphocytes Auto (Unsp spec) [#/Vol] 3.95 10*3/uL 0.83-4.51 [facility] Absolute neutrophil countOrd ered By: Pablo Fernandes on 01-23-2025 Neutrophils (Bld) [#/Vol] 5.5 10*3/uL 2.0-7.7 [facility] Anion gap in Serum or Plasma Ordered By: Pablo Fernandes on 01-23-2025 Anion gap [Moles/Vol] 12 mmol/L 5-15 [facility] Automated lymphocyte count a s percentage of total leukocytesOrdered By: Pablo Fernandes on 01-23-2025 Lymphocytes/100 WBC Auto (Unsp spec) 36.2 % - [facility] BUN/creatinine ratioOrdered By: Pablo Fernandes on 01-23-2025 Urea nitrogen/Creatinine [Mass ratio] 12.8 mg/mg - [facility] Basic Metabolic Profile (BMP )on 01-23-2025 BUN/CRE 12.8 RATIO Normal - [facility] Comment on above: Order Comment: Comme nts: NPO at [place] prior to lipid panel Performed By: #### L 100.0100, L500.2500, L300.3900, L500.4100 ####[facility] [address] [place], [address] Calcium [Mass/Vol] 9.4 mg/dL Normal 7.6-11.0 [facility] Comment on above: Order Comment: Comme nts: NPO at [place] prior to lipid panel Performed By: #### L 100.0100, L500.2500, L300.3900, L500.4100 ####[facility] [address] [place], [address] Chloride [Moles/Vol] 101 mmol/L Normal 98-108 [facility] Comment on above: Order Comment: Comme nts: NPO at [place] prior to lipid panel Performed By: #### L 100.0100, L500.2500, L300.3900, L500.4100 ####[facility] [address] [place], [address] CO2 [Moles/Vol] 23.5 mmol/L Normal 21.0-32.0 [facility] Comment on above: Order Comment: Comme nts: NPO at [place] prior to lipid panel Performed By: #### L 100.0100, L500.2500, L300.3900, L500.4100 ####[facility] [address] [place], [address] Creatinine [Mass/Vol] 0.75 mg/dL Normal 0.70-1.20 [facility] Comment on above: Order Comment: Comme nts: NPO at [place] prior to lipid panel Performed By: #### L 100.0100, L500.2500, L300.3900, L500.4100 ####[facility] [address] [place], [address] ECRCL 57.34 ml/min Normal 50-250 [facility] Comment on above: Order Comment: Comme nts: NPO at [place] prior to lipid panel Performed By: #### L 100.0100, L500.2500, L300.3900, L500.4100 ####[facility] [address] [place], [address] GAP 12 Normal 5-15 [facility] Comment on above: Order Comment: Comme nts: NPO at [place] prior to lipid panel Performed By: #### L 100.0100, L500.2500, L300.3900, L500.4100 ####[facility] [address] [place], [address] GFR/1.73 sq M.predicted among non-blacks MDRD (S/P/Bld) [Vol rate/Area] 82 mL/min/{1.73_m2} Normal >60 [facility] Comment on above: Order Comment: Comme nts: NPO at [place] prior to lipid panel Result Comment: mL/m in/1.73m2 CKD-EPI Creatinine Equation (2020) Performed By: #### L 100.0100, L500.2500, L300.3900, L500.4100 ####[facility] [address] [place], [address] Glucose [Mass/Vol] 129 mg/dL High 70-99 [facility] Comment on above: Order Comment: Comme nts: NPO at [place] prior to lipid panel Performed By: #### L 100.0100, L500.2500, L300.3900, L500.4100 ####[facility] [address] [place], [address] Potassium [Moles/Vol] 3.9 mmol/L Normal 3.3-5.1 [facility] Comment on above: Order Comment: Comme nts: NPO at [place] prior to lipid panel Performed By: #### L 100.0100, L500.2500, L300.3900, L500.4100 ####[facility] [address] [place], [address] Sodium [Moles/Vol] 137 mmol/L Normal 133-145 [facility] Comment on above: Order Comment: Comme nts: NPO at [place] prior to lipid panel Performed By: #### L 100.0100, L500.2500, L300.3900, L500.4100 ####[facility] [address] [place], [address] Urea nitrogen [Mass/Vol] 10 mg/dL Normal 4-19 [facility] Comment on above: Order Comment: Comme nts: NPO at [place] prior to lipid panel Performed By: #### L 100.0100, L500.2500, L300.3900, L500.4100 ####[facility] [address] [place], [address] Basophil percentageOrdered B y: Pablo Fernandes on 01-23-2025 Basophils/100 WBC (Bld) 0.4 % 0-1 [facility] Brain without Contraston Brain without Contrast [facility] [address] [place] [address] Brain without Contrast MR#: [id number] Acct: [id number] Name: ELIZABETH RODRIGEZ Rep #: [id number] : 1945 F 79 From: Ervin Lee MD PCP: Dr. Yenifer Gonsalez MD Status: ADM JASMIN Study: Brain without Contrast Date of Exam: 01/23/25 Exam# [id number] Ordering Dr: Pablo Fernandes MD PROCEDURE: BRAIN WITHOUT CONTRAST (MRIBR), 01/23/2025 REASON FOR EXAM: TIA COMPARISON: CT and CTA of same date TECHNIQUE: Multisequence multiplanar MRI brain was performed without intravenous contrast. Contrast: None. FINDINGS: Cerebrum: No acute infarct, appreciable intracranial hemorrhage, or mass. Moderate to advanced patchy supratentorial white matter abnormalities, nonspecific but compatible with chronic microvascular ischemic changes. Mild/moderate diffuse cerebral volume loss. Small remote lacunar infarcts in the bilateral basal ganglia. Cerebellum: Unremarkable. Brainstem: Unremarkable. Ventricles/extra-axial spaces: Age appropriate appearance. Major flow voids: Better evaluated on recent CTA. Paranasal sinuses: Mild mucosal thickening in the ethmoid air cells. Scalp/calvarium: Grossly unremarkable. Orbits: Bilateral cataract surgery.. Other: None. MRI/Brain without Contrast IMPRESSION: 1. No specific evidence of an acute intracranial process. 2. Additional description as above. Reading Location: [id number] CC: Dr. Yenifer Gonsalez MD; Dr. Pablo Fernandes MD Home Therapy Clinician: Signed Normal [facility] CBC W/Diff, Automatedon - Absolute Lymph 3.95 X10 3/uL Normal 0.83-4.51 [facility] Comment on above: Performed By: #### L 100.0100, L500.2500, L300.3900, L500.4100 ####[facility] [address] [place], [address] Absolute Neut 5.5 X10 3/uL Normal 2.0-7.7 [facility] Comment on above: Performed By: #### L 100.0100, L500.2500, L300.3900, L500.4100 ####[facility] [address] [place], [address] Basophils/100 WBC (Bld) 0.4 % Normal 0-1 [facility] Comment on above: Performed By: #### L 100.0100, L500.2500, L300.3900, L500.4100 ####[facility] [address] [place], [address] Eosinophils/100 WBC (Bld) 1.1 % Normal 0-5 [facility] Comment on above: Performed By: #### L 100.0100, L500.2500, L300.3900, L500.4100 ####[facility] [address] [place], [address] Erythrocyte distribution width (RBC) [Ratio] 15.9 % High 11.6-14.6 [facility] Comment on above: Performed By: #### L 100.0100, L500.2500, L300.3900, L500.4100 ####[facility] [address] [place], [address] Hematocrit (Bld) [Volume fraction] 40.2 % Normal 37-47 [facility] Comment on above: Performed By: #### L 100.0100, L500.2500, L300.3900, L500.4100 ####[facility] [address] [place], [address] Hemoglobin (Bld) [Mass/Vol] 13.3 g/dL Normal 12.0-15.0 [facility] Comment on above: Performed By: #### L 100.0100, L500.2500, L300.3900, L500.4100 ####[facility] [address] [place], [address] IG% 0.500 Normal 0.0-0.9 [facility] Comment on above: Result Comment: IG% - Immature Granulocytes (promyelocytes, myelocytes and metamyelocytes) > 1% indicates that a LEFT SHIFT is Present. Performed By: #### L 100.0100, L500.2500, L300.3900, L500.4100 ####[facility] [address] [place], [address] Lymphocytes/100 WBC (Bld) 36.2 % Normal 19-41 [facility] Comment on above: Performed By: #### L 100.0100, L500.2500, L300.3900, L500.4100 ####[facility] [address] [place], [address] MCH (RBC) [Entitic mass] 30.9 pg Normal 27.0-32.0 [facility] Comment on above: Performed By: #### L 100.0100, L500.2500, L300.3900, L500.4100 ####[facility] [address] [place], [address] MCHC (RBC) [Mass/Vol] 33.1 g/dL Normal 32-36 [facility] Comment on above: Performed By: #### L 100.0100, L500.2500, L300.3900, L500.4100 ####[facility] [address] [place], [address] MCV (RBC) [Entitic vol] 93.3 fL Normal 81-99 [facility] Comment on above: Performed By: #### L 100.0100, L500.2500, L300.3900, L500.4100 ####[facility] [address] [place], [address] Monocytes/100 WBC (Bld) 11.5 % High 0-10 [facility] Comment on above: Performed By: #### L 100.0100, L500.2500, L300.3900, L500.4100 ####[facility] [address] [place], [address] Neutrophils/100 WBC (Bld) 50.3 % Normal 47-70 [facility] Comment on above: Performed By: #### L 100.0100, L500.2500, L300.3900, L500.4100 ####[facility] [address] [place], [address] Nucleated RBC (Bld) [#/Vol] 0 10*3/uL Normal 0-5 [facility] Comment on above: Performed By: #### L 100.0100, L500.2500, L300.3900, L500.4100 ####[facility] [address] [place], [address] Platelet mean volume (Bld) [Entitic vol] 10.2 fL Normal 6.2-12.0 [facility] Comment on above: Performed By: #### L 100.0100, L500.2500, L300.3900, L500.4100 ####[facility] [address] [place], [address] Platelets (Bld) [#/Vol] 414 10*3/uL Normal 150-450 [facility] Comment on above: Performed By: #### L 100.0100, L500.2500, L300.3900, L500.4100 ####[facility] [address] [place], [address] RBC (Bld) [#/Vol] 4.31 10*6/uL Normal 4.2-5.4 [facility] Comment on above: Performed By: #### L 100.0100, L500.2500, L300.3900, L500.4100 ####[facility] [address] [place], [address] RDW SD 54.5 fl High 35.1-43.9 [facility] Comment on above: Performed By: #### L 100.0100, L500.2500, L300.3900, L500.4100 ####[facility] [address] [place], [address] WBC (Bld) [#/Vol] 10.9 10*3/uL Normal 4.4-11.0 [facility] Comment on above: Performed By: #### L 100.0100, L500.2500, L300.3900, L500.4100 ####[facility] [address] [place], [address] Calculated very low density lipoprotein (VLDL) cholesterol measurementOrdered By: Pablo Fernandes on 01-23-2025 Calculated very low density lipoprotein (VLDL) cholesterol measurement 44 mg/dL High 5-40 [facility] VLDL Cholesterol 44 mg/dL High 5-40 [facility] Carbon dioxide, total [Moles /volume] in Central venous bloodOrdered By: Pablo Fernandes on 01-23-2025 CO2 [Moles/Vol] 23.5 mmol/L 21.0-32.0 [facility] Chloride assayOrdered By: Geovany Fernandes on 01-23-2025 Chloride [Moles/Vol] 101 mmol/L 98-108 [facility] Echocardiogram study reportO rdered By: Aayush Candelario on 01-23-2025 Study report [facility] [address] [place] [address] Echo Complete 01/23/25 0824 MR#: [id number] Acct: [id number] Name: ELIZABETH RODRIGEZ Rep #:[id number] : 1945 79 From: Aayush schaeffer MD Attending Dr: Dr. Adebayo De La Cruz MD Status: ADM JASMIN Ordering Dr: Pablo Fernandes MD Date: Location: U Sex: F C Admitted: 01/22/25 Reason For Study Reason For Study: TIA/CVA Procedure This was a 2D Doppler, Color Flow transthoracic echocardiogram. Exam performed portable in patient room. Left Ventricle Normal LV size. The estimated ejection fraction is 70 %. No evidence for diastolic dysfunction. No regional wall motion abnormalities noted. Right Ventricle Normal RV size. Normal systolic function. Atria The left and right atria are normal. No doppler evidence for ASD. Mitral Valve There is moderate mitral annular calcification. There is no mitral valve stenosis. No mitral valve insufficiency. Tricuspid Valve There is no tricuspid stenosis. Unable to estimate RV systolic pressure due to inadequate jet, pulmonary artery pressure probably normal. Aortic Valve Trisinus/trileaflet aortic valve. There is no aortic stenosis. Trivial aortic valve insufficiency. Pulmonic Valve There is no pulmonic valvular stenosis. No pulmonic valve insufficiency. Great Vessels Normal sized aortic root. Pericardium/Pleural No pericardial effusion. MMode/2D Measurements & Calculations LVIDd: 4.2 cm IVSd: 1.0 cm Ao root diam: 3.2 cm LVIDs: 2.8 cm LVPWd: 1.2 cm RVDd: 2.7 cm FS: 33.5 % LAV(MOD-bp): 19.1 ml LVAd ap4: 19.0 cm2 SV(MOD-sp4): 27.3 ml LAV(MOD-bp) Indexed: 10.5 ml/m2 LVLd ap4: 6.5 cm SI(MOD-sp4): 15.1 ml/m2 LAV(MOD-sp2): 17.5 ml EDV(MOD-sp4): 44.8 ml LAV(MOD-sp4): 19.8 ml EDV(sp4-el): 47.2 ml LVAs ap4: 10.3 cm2 LVLs ap4: 5.2 cm ESV(MOD-sp4): 17.5 ml ESV(sp4-el): 17.4 ml EF(MOD-sp4): 60.9 % EF(sp4-el): 63.2 % SV(sp4-el): 29.8 ml LA A4 area: 10.7 cm2 LA dimension(2D): 2.6 cm RA A4 area: 8.7 cm2 TAPSE: 1.8 cm Time Measurements MV dec time: 0.26 sec Doppler Measurements & Calculations MV E max aurora: 84.2 cm/sec Lat Peak E' Aurora: 9.3 cm/sec Med Peak E' Aurora: 6.9 cm/sec MV A max aurora: 118.3 cm/sec E/E' lat: 9.0 E/E' med: 12.1 MV E/A: 0.71 Ao V2 max: 115.0 cm/sec AI max aurora: 420.5 cm/sec LV V1 max: 108.3 cm/sec Ao max P.3 mmHg AI max P.7 mmHg LV V1 max P.7 mmHg AI dec slope: 237.5 cm/sec2 AI P1/2t: 518.7 msec PA V2 max: 105.0 cm/sec TR max aurora: 238.2 cm/sec TR max P.7 mmHg ECHO/Echo Complete Interpretation Summary The estimated ejection fraction is 70 %. No evidence for diastolic dysfunction. Trivial aortic valve insufficiency. Ordering Physician: Pablo Fernandes Referring Physician: YENIFER GONSALEZ Performed By: Demetria Qiu RDCS 01/23/25 1426 Date _ Aayush Candelario MD CC: Dr. Adebayo De La Cruz MD; Dr. Yenifer Gonsalez MD; Dr. Pablo Fernandes MD ~ Date Dictated: 01/23/25823 Date Transcribed: 01/23/251425 Home Therapy Clinician: Signed [facility] Work Phone: Eosinophil percentageOrdered By: Pablo Fernandes on 01-23-2025 Eosinophils/100 WBC (Bld) 1.1 % 0-5 [facility] Erythrocyte distribution wid th (RBC) [Ratio]Ordered By: Pablo Fernandes on 01-23-2025 Erythrocyte distribution width (RBC) [Entitic vol] 54.5 fL High 35.1-43.9 [facility] Erythrocyte distribution wid th ratioOrdered By: Pablo Fernandes on 01-23-2025 Erythrocyte distribution width (RBC) [Ratio] 15.9 % High 11.6-14.6 [facility] Erythrocyte distribution wid th standard deviationOrdered By: Pablo Fernandes on 01-23-2025 Erythrocyte distribution width (RBC) [Ratio] 54.5 fl High 35.1-43.9 [facility] Estimation of creatinine salomón aranceOrdered By: Pablo Fernandes on 01-23-2025 Estimated Creatinine Clearance Calc 57.34 ml/min 50-250 [facility] GFR/1.73 sq M.predicted rakel g non-blacks MDRD (S/P/Bld) [Vol rate/Area]Ordered By: Pablo Fernandes on 01-23-2025 Estimated GFR (MDRD) Non-Af Amer 82 >60 [facility] Comment on above: mL/min/1.73m2 CKD-EP I Creatinine Equation (2020) Glomerular filtration rate ( GFR) estimation/1.73 sq m using serum, plasma, or whole bOrdered By: Pablo Fernandes on 01-23-2025 GFR/1.73 sq M.predicted among non-blacks MDRD (S/P/Bld) [Vol rate/Area] 82 mL/min/{1.73_m2} >60 [facility] Comment on above: mL/min/1.73m2 CKD-EP I Creatinine Equation (2020) Hematocrit Auto (Bld) [Volum e fraction]Ordered By: Pablo Fernandes on 01-23-2025 Hematocrit (Bld) [Volume fraction] 40.2 % 37-47 [facility] Hemoglobin measurementOrdere d By: Pablo Fernandes on 01-23-2025 Hemoglobin (Bld) [Mass/Vol] 13.3 g/dL 12.0-15.0 [facility] Immature granulocytes/100 WB C Auto (Bld)Ordered By: Pablo Fernandes on 01-23-2025 Immature granulocytes/100 WBC (Bld) 0.500 % 0.0-0.9 [facility] Comment on above: IG% - Immature Granu locytes (promyelocytes, myelocytes and metamyelocytes) > 1% indicates that a LEFT SHIFT is Present. International normalized rat io (INR) calculationOrdered By: Pablo Fernandes on 01-23-2025 INR Coag (Bld) [Relative time] 1.2 {INR} [facility] LDL calc ser/plasOrdered By: Pablo Fernandes on 01-23-2025 Cholesterol in LDL [Mass/Vol] 85 mg/dL [facility] Comment on above: Sitqltrtdt=811-807 m g/dL & Higher Uymk=995 mg/dL or greater LDL Cholesterol, Calculated 85 mg/dL [facility] Comment on above: Fpxvxquokf=989-962 m g/dL & Higher Xvlf=369 mg/dL or greater Lipid Profileon 01-23-2025 CHOL:HDL 4.60 Normal [facility] Comment on above: Order Comment: Comme nts: [place] at [place] prior to lipid panel Performed By: #### L 100.0100, L500.2500, L300.3900, L500.4100 ####[facility] [address] [place], [address] Cholesterol in HDL [Mass/Vol] 36 mg/dL Low [facility] Comment on above: Order Comment: Comme nts: [place] prior to lipid panel Result Comment: Cecile onal Cholesterol Education Program (NCEP) guidelines: <40 mg/dL: Low HDL-cholesterol (major risk factor for CHD) >= 60 mg/dL: High HDL-cholesterol (negative risk factor for CHD) HDL-cholesterol is affected by a number of factors, e.g. smoking, exercise, hormones, sex and age. Performed By: #### L 100.0100, L500.2500, L300.3900, L500.4100 ####[facility] [address] [place], [address] Cholesterol in LDL [Mass/Vol] 85 mg/dL Normal [facility] Comment on above: Order Comment: Comme nts: [place] at [place] prior to lipid panel Result Comment: Bord ucjhqc=813-943 mg/dL Higher Wven=400 mg/dL or greater Performed By: #### L 100.0100, L500.2500, L300.3900, L500.4100 ####[facility] [address] [place], [address] Lymphocytes Auto (Unsp spec) [#/Vol]Ordered By: Pablo Fernandes on 01-23-2025 Lymphocytes (Bld) [#/Vol] 3.95 10*3/uL 0.83-4.51 [facility] Lymphocytes/100 WBC Auto (Un sp spec)Ordered By: Pablo Fernandes on 01-23-2025 Lymphocytes/100 WBC (Bld) 36.2 % 19-41 [facility] MCV (mean corpuscular volume ) determinationOrdered By: Pablo Fernandes on 01-23-2025 MCV (RBC) [Entitic vol] 93.3 fL 81-99 [facility] MR/CON.PCM.NEon 01-23-2025 MR/CON.PCM.NE [facility] Medical Records Department [address] [place] [address] Consultation - Neurology 01/23/25 1052 MR#: [id number] Acct: [id number] Name: ELIZABETH RODRIGEZ Rep #: [id number] : 1945 79 From: Marilynn Lala MD PCP: Dr. Yenifer Gonsalez MD Status:ADM JASMIN Location: [place] [address] Assessment and Plan: Neuro Assessment/Plan ELIZABETH RODRIGEZ is a 79 F with a past medical history of vertigo, being evaluated by Teleneurology for vertigo lasted for one hour. Appears to be peripheral in etiology given previous history of it. CT head/CT angio negative .MRI Brain pending. Recommend continue Eliquis, statin .Can try meclizine 25 TID prn. Recommend outpatient vestibular rehab. Diagnosis:Peripheral Vertigo I personally attended this patient and spent a total time of 55 minutes evaluating this patient including clinical assessment, review of chart, medical history imaging, and determining appropriate treatment and workup. HPI Consult Data Date of Consult: 01/23/25 HPI Narrative HPI Narrative: ELIZABETH RODRIGEZ, is a 79 F who presents with vertginour symptoms .She was in her usual state ofheath and was at [facility] shoes when she dveloped acute onset vertiginous symptoms adn double vision. She lso felt sick to the stomach and nauseasted .Symptoms lasted for hour. Denies any focal weakness . 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 Arthritis Obesity Hyperlipidemia Vulvar dermatitis Lichen sclerosus Diabetes Sarcoidosis Spleen anomaly Splenomegaly History of blood clots Sleep apnea Hemorrhoids BMI 36.0-36.9,adult History of PSVT (paroxysmal supraventricular tachycardia) Home Medications ???Medication ???Instructions ???Recorded ???Last Taken ???Type paroxetine HCl 20 mg tablet (Paxil) 40 mg PO DAILY DEPRESSION 04/0301/22/25 History verapamil 80 mg tablet 80 mg PO BID HEART 04/03/16 History gabapentin 400 mg capsule 400 mg PO TID nerve pain 10/29/20 01/22/25 History fluticasone propionate 50 1 spray intranasal DAILY 09/09/21 01/21/25 History mcg/actuation nasal spray,suspension (Flonase Allergy Relief) apixaban 5 mg tablet (Eliquis) 5 mg PO BID 30 days #60 tabs 12/1901/22/25 Rx biotin 1 mg capsule 1 mg PO DAILY 01/22/25 01/22/25 Hi story cholecalciferol (vitamin D3) 50 50 mcg PO DAILY 01/22/25 01/22/25 History mcg (2,000 unit) tablet (Thera-D) magnesium 250 mg tablet 250 mg PO DAILY 01/22/25 01/22/25 History meclizine 25 mg tablet 25 mg PO 4X/DAY PRN Dizziness 12/27 05/21 Unknown History mecobalamin (vitamin B12) 1,000 1,000 mcg PO DAILY 01/22/25 History mcg lozenges metformin 500 mg tablet,extended 500 mg PO BID 01/22/25 01/22/25 Hi story release 24 hr multivitamin (Multiple Vitamins 1 tab PO DAILY 01/22/25 01/22/25 H istory tablet) paroxetine HCl 20 mg tablet 10 mg PO QHS 01/22/25 01/21/25 His tory rosuvastatin 10 mg tablet 10 mg PO DAILY 01/22/25 01/21/25 H istory Allergy/AdvReac Type Severity Reaction Status Date / Time lidocaine Allergy Intermediate tachycardia Verified 06/23/23 10:34 Penicillins Allergy Hives Verified 06/23/23 10:34 atorvastatin AdvReac Pain in Verified 06/23/23 10:34 joints hydrocodone bitartrate (From AdvReac Vomiting Verified 06/23/23 10:34 Vicodin) oxycodone HCl (From Percocet) AdvReac Vomiting Verified 06/23/23 10:34 Family History Daughter Hypertension Father Heart disease Mother Dementia Surgical History History of breast biopsy H/O splenectomy History of hysterectomy Social History Smoking Status: Never smoker alcohol intake: current details: social substance use type: does not use caffeine: Yes what type of physical activity do you participate in: walking seatbelt use: always do you feel safe at home: Yes 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 Normal [facility] Magnetic resonance imaging r eportOrdered By: Ervin Lee on 01-23-2025 Study report [facility] Imaging Services [address] [place] [address] Brain without Contrast MR#: [id number] Acct: [id number] Name: ELIZABETH RODRIGEZ Rep #: [id number] : 1945 F 79 From: Carole Lee MD PCP: Dr. Yenifer Gonsalez MD Status: JARED CASTELLANOS Study:Brain without Contrast Date of Exam: 01/23/25 Exam# [id number] Ordering Dr: Pablo Fernandes MD PROCEDURE: BRAIN WITHOUT CONTRAST (MRIBR), 01/23/2025 REASON FOR EXAM: TIA COMPARISON: CT and CTA of same date TECHNIQUE: Multisequence multiplanar MRI brain was performed without intravenous contrast. Contrast: None. FINDINGS: Cerebrum: No acute infarct, appreciable intracranial hemorrhage, or mass. Moderate to advanced patchy supratentorial white matter abnormalities, nonspecific but compatible with chronic microvascular ischemic changes. Mild/moderate diffuse cerebral volume loss. Small remote lacunar infarcts in the bilateral basal ganglia. Cerebellum: Unremarkable. Brainstem: Unremarkable. Ventricles/extra-axial spaces: Age appropriate appearance. Major flow voids: Better evaluated on recent CTA. Paranasal sinuses: Mild mucosal thickening in the ethmoid air cells. Scalp/calvarium: Grossly unremarkable. Orbits: Bilateral cataract surgery.. Other: None. MRI/Brain without Contrast IMPRESSION: 1. No specific evidence of an acute intracranial process. 2. Additional description as above. Reading Location: [facility] CC: Dr. Yenifer Gonsalez MD; Dr. Pablo Fernandes MD ~ Home Therapy Clinician: Signed [facility] Mean corpuscular hemoglobin (MCH) determinationOrdered By: Pablo Fernandes on 01-23-2025 MCH (RBC) [Entitic mass] 30.9 pg 27.0-32.0 [facility] Mean corpuscular hemoglobin concentration (MCHC) determinationOrdered By: Pablo Fernandes on 01-23-2025 MCHC (RBC) [Mass/Vol] 33.1 g/dL 32-36 [facility] Mean platelet volume determi nationOrdered By: Pablo Fernandes on 01-23-2025 Platelet mean volume (Bld) [Entitic vol] 10.2 fL 6.2-12.0 [facility] Monocyte percentageOrdered B y: Pablo Fernandes on 01-23-2025 Monocytes/100 WBC (Bld) 11.5 % High 0-10 [facility] Neutrophil percentageOrdered By: Pablo Fernandes on 01-23-2025 Neutrophils/100 WBC (Bld) 50.3 % 47-70 [facility] Nucleated red blood cell per centageOrdered By: Pablo Fernandes on 01-23-2025 Nucleated RBC/100 WBC (Bld) [Ratio] 0 % 0-5 [facility] Platelet countOrdered By: Geovany Fernandes on 01-23-2025 Platelets (Bld) [#/Vol] 414 10*3/uL 150-450 [facility] Potassium (Unsp spec) [Mass/ Vol]Ordered By: Pablo Fernandes on 01-23-2025 Potassium [Moles/Vol] 3.9 mmol/L 3.3-5.1 [facility] Potassium measurement (mass/ volume)Ordered By: Pablo Fernandes on 01-23-2025 Potassium (Unsp spec) [Mass/Vol] 3.9 mmol/L 3.3-5.1 [facility] Prothrombin Time w/INRon INR Coag (PPP) [Relative time] 1.2 {INR} Normal [facility] Comment on above: Performed By: #### L 100.0100, L500.2500, L300.3900, L500.4100 ####[facility] [address] [place], [address] PT Coag (PPP) [Time] 15.8 s High 11.7-14.9 [facility] Comment on above: Performed By: #### L 100.0100, L500.2500, L300.3900, L500.4100 ####[facility] [address] [place], [address] Prothrombin timeOrdered By: Pablo Fernandes on 01-23-2025 PT Coag (PPP) [Time] 15.8 s High 11.7-14.9 [facility] RBC Auto (Bld) [#/Vol]Ordere d By: Pablo Fernandes on 01-23-2025 RBC (Bld) [#/Vol] 4.31 10*6/uL 4.2-5.4 [facility] Screening total cholesterol/ high density lipoprotein (HDL) cholesterol ratioOrdered By: Pablo Fernandes on 01-23-2025 Cholesterol.total/Mihaela sterol in HDL [Mass ratio] 4.60 {ratio} [facility] Serum creatinine measurement (mass/volume)Ordered By: Pablo Fernandes on 01-23-2025 Creatinine [Mass/Vol] 0.75 mg/dL 0.70-1.20 [facility] Serum glucose measurement (m ass/volume)Ordered By: Pablo Fernandes on 01-23-2025 Glucose [Mass/Vol] 129 mg/dL High 70-99 [facility] Serum or plasma calcium maribel urement (mass/volume)Ordered By: Pablo Fernandes on 01-23-2025 Calcium [Mass/Vol] 9.4 mg/dL 7.6-11.0 [facility] Serum or plasma cholesterol in HDL measurement (mass/volume)Ordered By: Pablo Fernandes on 01-23-2025 Cholesterol in HDL [Mass/Vol] 36 mg/dL Low >40 [facility] Comment on above: National Cholesterol Education Program (NCEP) guidelines:<40 mg/dL: Low HDL-cholesterol (major risk factor for CHD)>= 60 mg/dL: High HDL-cholesterol (negative risk factor for CHD)HDL-cholesterol is affected by a number of factors, e.g. smoking, exercise, hormones, sex and age. Serum or plasma cholesterol measurement (mass/volume)Ordered By: Pablo Fernandes on 01-23-2025 Cholesterol [Mass/Vol] 165 mg/dL <201 [facility] Comment on above: Cholesterol level, D esirable <200 mg/dLBorderline high cholesterol 200-239 mg/dLHigh cholesterol >=240 mg/dLRecommendations of the NCEP Adult Treatment Panel for the following risk-cutoff thresholds for the [place] population. Serum or plasma urea nitroge n measurement (mass/volume)Ordered By: Pablo Fernandes on 01-23-2025 Urea nitrogen [Mass/Vol] 10 mg/dL 4-19 [facility] Sodium levelOrdered By: Pablo Fernandes on 01-23-2025 Sodium [Moles/Vol] 137 mmol/L 133-145 [facility] Triglycerides measurementOrd ered By: Pablo Fernandes on 01-23-2025 Triglyceride [Mass/Vol] 221 mg/dL High <199 [facility] Comment on above: The drugs N-Acetylcy steine and Metamizole may falsely depress this assay. Normal range: <150 mg/dLBorderline High: 150-199 mg/dLHigh: 200-499 mg/dLVery High: >500 mg/dL White blood cell (WBC) count Ordered By: Pablo Fernandes on 01-23-2025 WBC (Bld) [#/Vol] 10.9 10*3/uL 4.4-11.0 [facility] 12 Lead EKGon 01-22-2025 12 Lead EKG [facility] Cardiovascular Services [address] [place] [address] 12 Lead EKG 01/22/25 1835 MR#: [id number] Acct: [id number] Name: ELIZABETH RODRIGEZ Rep #: [id number] : 1945 79 From: Aayush Candelario MD Attending Dr: Dr. Adebayo De La Cruz MD Status: DIS JASMIN Ordering Dr: Alejandro Chaudhari MD Date: 01/22/25 Location: [facility] Sex: F C Admitted: 01/22/25 Test Reason : STROKE Blood Pressure : */* mmHG Vent. Rate : 87 BPM Atrial Rate : 87 BPM P-R Int : 174 ms QRS Dur : 72 ms QT Int : 396 ms P-R-T Axes : 30 -12 68 degrees QTcB Int : 476 ms Normal sinus rhythm Inferior infarct , age undetermined Abnormal ECG Confirmed by ANDREE TOLEDO, MARNIE ([id number]), newspaper editor DAWSON LOVE ([id number]) on 01/24/2025 1:22:48 PM Referred By: Confirmed By: MARNIE CANDELARIO MD 01/24/25 1322 Date Aayush Candelario MD CC: Dr. Adebayo De La Cruz MD; Dr. Yenifer Gonsalez MD; Dr. Alejandro Chaudhari MD Signed Normal [facility] Absolute neutrophil countOrd ered By: Alejandro Chaudhari on 01-22-2025 Neutrophils (Bld) [#/Vol] 5.4 10*3/uL 2.0-7.7 [facility] Activated partial thrombopla stin time (aPTT) in platelet poor plasma by coagulation aOrdered By: Alejandro Chaudhari on 01-22-2025 aPTT Coag (PPP) [Time] 26.8 s 24.1-36.2 [facility] Anion gap in Serum or Plasma Ordered By: Alejandro Chaudhari on 01-22-2025 Anion gap [Moles/Vol] 14 mmol/L 5-15 [facility] BUN/creatinine ratioOrdered By: Alejandro Chaudhari on 01-22-2025 Urea nitrogen/Creatinine [Mass ratio] 13.0 mg/mg - [facility] Basic Metabolic Profile (BMP )on 01-22-2025 BUN/CRE 13.0 RATIO Normal 07-16 [facility] Comment on above: Performed By: #### L 300.3900, L500.2500, L501.4021, L300.4310, L100.0100 #### [facility] Laboratory [address] [place], [address] Calcium [Mass/Vol] 9.7 mg/dL Normal 7.6-11.0 [facility] Comment on above: Performed By: #### L 300.3900, L500.2500, L501.4021, L300.4310, L100.0100 #### [facility] [address] [place], [address] Chloride [Moles/Vol] 99 mmol/L Normal 98-108 [facility] Comment on above: Performed By: #### L 300.3900, L500.2500, L501.4021, L300.4310, L100.0100 #### [facility] [address] [place], [address] CO2 [Moles/Vol] 23.2 mmol/L Normal 21.0-32.0 [facility] Comment on above: Performed By: #### L 300.3900, L500.2500, L501.4021, L300.4310, L100.0100 #### [facility] [address] [place], [address] Creatinine [Mass/Vol] 0.85 mg/dL Normal 0.70-1.20 [facility] Comment on above: Performed By: #### L 300.3900, L500.2500, L501.4021, L300.4310, L100.0100 #### [facility] [address] [place], [address] ECRCL 54.29 ml/min Normal 50-250 [facility] Comment on above: Performed By: #### L 300.3900, L500.2500, L501.4021, L300.4310, L100.0100 #### [facility] [address] [place], [address] GAP 14 Normal 5-15 [facility] Comment on above: Performed By: #### L 300.3900, L500.2500, L501.4021, L300.4310, L100.0100 #### [facility] [address] [place], [address] GFR/1.73 sq M.predicted among non-blacks MDRD (S/P/Bld) [Vol rate/Area] 70 mL/min/{1.73_m2} Normal >60 [facility] Comment on above: Result Comment: mL/m in/1.73m2 CKD-EPI Creatinine Equation (2020) Performed By: #### L 300.3900, L500.2500, L501.4021, L300.4310, L100.0100 #### [facility] [address] [place], [address] Glucose [Mass/Vol] 102 mg/dL High 70-99 [facility] Comment on above: Performed By: #### L 300.3900, L500.2500, L501.4021, L300.4310, L100.0100 #### [facility] [address] [place], [address] Potassium [Moles/Vol] 4.0 mmol/L Normal 3.3-5.1 [facility] Comment on above: Result Comment: Hemo lysis present, Results??could be affected. ?? Performed By: #### L 300.3900, L500.2500, L501.4021, L300.4310, L100.0100 #### [facility] [address] [place], [address] Sodium [Moles/Vol] 136 mmol/L Normal 133-145 [facility] Comment on above: Performed By: #### L 300.3900, L500.2500, L501.4021, L300.4310, L100.0100 #### [facility] [address] [place], [address] Urea nitrogen [Mass/Vol] 11 mg/dL Normal 4-19 [facility] Comment on above: Performed By: #### L 300.3900, L500.2500, L501.4021, L300.4310, L100.0100 #### [facility] [address] [place], [address] Basophil percentageOrdered B y: Alejandro Chaudhari on 01-22-2025 Basophils/100 WBC (Bld) 0.3 % 0-1 [facility] Bedside Glucoseon 01-22-2025 FINGERSTICK GLU 97 mg/dL Normal 74-106 [facility] Comment on above: Result Comment: WHIT MORAN OF PATIENT CARE PER NURSING PROTOCOL Performed By: #### L 501.080 ####[facility] [address] [place], [address] CBC W/Diff, Automatedon 12-27 PLT EST ADEQUATE Normal ADEQ [facility] Comment on above: Performed By: #### L 300.3900, L500.2500, L501.4021, L300.4310, L100.0100 ####[facility] [address] [place], [address] Carbon dioxide, total [Moles /volume] in Central venous bloodOrdered By: Alejandro Chaudhari on 01-22-2025 CO2 [Moles/Vol] 23.2 mmol/L 21.0-32.0 [facility] Chloride assayOrdered By: Ug o Chaudhari on 01-22-2025 Chloride [Moles/Vol] 99 mmol/L 98-108 [facility] Echo Completeon 01-22-2025 Echo Complete [facility] Cardiovascular Services [address] [place] [address] Echo Complete 01/23/25 0824 MR#: [id number] Acct: [id number] Name: ELIZABETH RODRIGEZ Rep #: [id number] : 1945 79 From: Aayush Candelario MD Attending Dr: Dr. Adebayo De La Cruz MD Status: ADM JASMIN Ordering Dr: Pablo Fernandes MD Date: 01/22/25 Location: [facility] Sex: F C Admitted: 01/22/25 Reason For Study Reason For Study: TIA/CVA Procedure This was a 2D Doppler, Color Flow transthoracic echocardiogram. Exam performed portable in patient room. Left Ventricle Normal LV size. The estimated ejection fraction is 70 %. No evidence for diastolic dysfunction. No regional wall motion abnormalities noted. Right Ventricle Normal RV size. Normal systolic function. Atria The left and right atria are normal. No doppler evidence for ASD. Mitral Valve There is moderate mitral annular calcification. There is no mitral valve stenosis. No mitral valve insufficiency. Tricuspid Valve There is no tricuspid stenosis. Unable to estimate RV systolic pressure due to inadequate jet, pulmonary artery pressure probably normal. Aortic Valve Trisinus/trileaflet aortic valve. There is no aortic stenosis. Trivial aortic valve insufficiency. Pulmonic Valve There is no pulmonic valvular stenosis. No pulmonic valve insufficiency. Great Vessels Normal sized aortic root. Pericardium/Pleural No pericardial effusion. MMode/2D Measurements Calculations LVIDd: 4.2 cm IVSd: 1.0 cm Ao root diam: 3.2 cm LVIDs: 2.8 cm LVPWd: 1.2 cm RVDd: 2.7 cm FS: 33.5 % LAV(MOD-bp): 19.1 ml LVAd ap4: 19.0 cm2 SV(MOD-sp4): 27.3 ml LAV(MOD-bp) Indexed: 10.5 ml/m2 LVLd ap4: 6.5 cm SI(MOD-sp4): 15.1 ml/m2 LAV(MOD-sp2): 17.5 ml EDV(MOD-sp4): 44.8 ml LAV(MOD-sp4): 19.8 ml EDV(sp4-el): 47.2 ml LVAs ap4: 10.3 cm2 LVLs ap4: 5.2 cm ESV(MOD-sp4): 17.5 ml ESV(sp4-el): 17.4 ml EF(MOD-sp4): 60.9 % EF(sp4-el): 63.2 % SV(sp4-el): 29.8 ml LA A4 area: 10.7 cm2 LA dimension(2D): 2.6 cm RA A4 area: 8.7 cm2 TAPSE: 1.8 cm Time Measurements MV dec time: 0.26 sec Doppler Measurements Calculations MV E max aurora: 84.2 cm/sec Lat Peak E' Aurora: 9.3 cm/sec Med Peak E' Aurora: 6.9 cm/sec MV A max aurora: 118.3 cm/sec E/E' lat: 9.0 E/E' med: 12.1 MV E/A: 0.71 Ao V2 max: 115.0 cm/sec AI max aurora: 420.5 cm/sec LV V1 max: 108.3 cm/sec Ao max P.3 mmHg AI max P.7 mmHg LV V1 max P.7 mmHg AI dec slope: 237.5 cm/sec2 AI P1/2t: 518.7 msec PA V2 max: 105.0 cm/sec TR max aurora: 238.2 cm/sec TR max P.7 mmHg ECHO/Echo Complete Interpretation Summary The estimated ejection fraction is 70 %. No evidence for diastolic dysfunction. Trivial aortic valve insufficiency. Ordering Physician: Pablo Fernandes Referring Physician: YENIFER GONSALEZ Performed By: Demetria Qiu RDCS 01/23/25 1426 Date Aayush Candelario MD CC: Dr. Adebayo De La Cruz MD; Dr. Yenifer Gonsalez MD; Dr. Pablo Fernandes MD Date Dictated: 01/23/25823 Date Transcribed: 01/23/25 142 Home Therapy Clinician: Signed Normal [facility] Emergency Department Summary on 01-22-2025 Emergency Department Summary [facility] Medical Records Department [address] [place] [address] Emergency Department Summary 01/22/25 MR#: [id number] Acct: [id number] Name: ELIZABETH RODRIGEZ Rep #: [id number] : 1945 79 From: Alejandro Chaudhari MD PCP: Dr. 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 Arthritis Obesity Hyperlipidemia Vulvar dermatitis Lichen sclerosus Diabetes Sarcoidosis Spleen anomaly Splenomegaly History of blood clots Sleep apnea Hemorrhoids BMI 36.0-36.9,adult History of PSVT (paroxysmal supraventricular tachycardia) Home Medications ???Medication ???Instructions ???Recorded ???Last Taken ???Type paroxetine HCl 20 mg tablet (Paxil) 40 mg PO DAILY DEPRESSION 04/0301/22/25 History verapamil 80 mg tablet 80 mg PO BID HEART 04/03/16 History gabapentin 400 mg capsule 400 mg PO TID nerve pain 10/29/20 01/22/25 History fluticasone propionate 50 1 spray intranasal DAILY 09/09/21 01/21/25 History mcg/actuation nasal spray,suspension (Flonase Allergy Relief) apixaban 5 mg tablet (Eliquis) 5 mg PO BID 30 days #60 tabs 12/1901/22/25 Rx biotin 1 mg capsule 1 mg PO DAILY 01/22/25 01/22/25 Hi story cholecalciferol (vitamin D3) 50 50 mcg PO DAILY 01/22/25 01/22/25 History mcg (2,000 unit) tablet (Thera-D) magnesium 250 mg tablet 250 mg PO DAILY 01/22/25 01/22/25 History meclizine 25 mg tablet 25 mg PO 4X/DAY PRN Dizziness 12/27 05/21 Unknown History mecobalamin (vitamin B12) 1,000 1,000 mcg PO DAILY 01/22/25 History mcg lozenges metformin 500 mg tablet,extended 500 mg PO BID 01/22/25 01/22/25 Hi story release 24 hr multivitamin (Multiple Vitamins 1 tab PO DAILY 01/22/25 01/22/25 H istory tablet) paroxetine HCl 20 mg tablet 10 mg PO QHS 01/22/25 01/21/25 His tory rosuvastatin 10 mg tablet 10 mg PO DAILY 01/22/25 01/21/25 H istory Allergy/AdvReac Type Severity Reaction Status Date / Time lidocaine Allergy Intermediate tachycardia Verified 06/23/23 10:34 Penicillins Allergy Hives Verified 06/23/23 10:34 atorvastatin AdvReac Pain in Verified 06/23/23 10:34 joints hydrocodone bitartrate (From AdvReac Vomiting Verified 06/23/23 10:34 Vicodin) oxycodone HCl (From Percocet) AdvReac Vomiting Verified 06/23/23 10:34 Family History Daughter Hypertension Father Heart disease Mother Dementia Surgical History History of breast biopsy H/O splenectomy History of hysterectomy Social History Smoking Status: Never smoker alcohol intake: current details: social substance use type: does not use caffeine: Yes what type of physical activity do you participate in: walking seatbelt use: always do you feel safe at home: Yes 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 Physical Exam Const Vital Signs: 01/22/25 17:45 01/22/25 17:48 01/22/25 17:54 Temperature 98.0 F Temperature Source Oral Pulse Rate 90 Respiratory Rate 14 Respiratory Effort Normal Respiratory Pattern Normal Blood Pressure 160/81 H Blood Pressure Mean 107 Pulse Ox 95 Oxygen Delivery Method Room Air Room Air 01/22/25 18:09 01/22/25 18:24 01/22/25 19:00 Temperature 98.1 F Temperature Source Oral Pulse Rate 93 85 83 Respiratory Rate 20 H 16 14 Respiratory Effort Respiratory Pattern Blood Pressure 156/93 H 143/86 H 144/81 H Blood Pressure Mean 114 105 102 Pulse Ox 95 93 94 Oxygen Delivery Method Room Air Room Air Room Air 01/22/25 19:30 01/22/25 20:00 01/22/25 20:13 Temperature 98.4 F 98.4 F Temperature Source Oral Pulse Rate 85 92 90 Respiratory Rate 20 H 17 18 Respiratory Effort Respiratory Pattern Blood Pressure 139/77 H 162/87 H 162/87 H Blood Pressure Mean 97 112 112 Pulse Ox 93 92 95 Oxygen Delivery Method Room Air Room Air MDM MDM Lab Data Attestation: I reviewed the patient's lab results. Lab results narrative: White count is elevated 13.5 thousand there is a predominant lymphocytes. Electrolyte panel is unremarkable. Troponin is normal. Labs: Laboratory Results - last 24 hr 01/22/25 01/22/25 17:20 18:10 WBC 13.5 H RBC 4.37 Hgb 13.7 Hct 41.0 MCV 93.8 (more content not included)... Normal [facility] Emergency Department Summary [facility] Medical Records Department [address] [place] [address] Emergency Department Summary 01/22/25 MR#: [id number] Acct: [id number] Name: ELIZABETH RODRIGEZ Rep #: [id number] : 1945 79 From: Alejandro Chaudhari MD PCP: Dr. Yenifer Gonsalez MD Status:ADM JASMIN Location: [address] History of Present Illness Chief Complaint: Syncope Detail of Chief Complaint: Vertigo and diplopia Informant: patient and spouse/S.O. Onset/Context/Timing Onset: Today (1709) Context: Sudden Onset Timing: Continuous Quality: Vertigo [facility] Current Severity: Moderate Maximum Severity: Severe Worsened by: Nothing Relieved by: Nothing Associated Symptoms Associated Symptoms: Double vision and visual field cut Narrative Narrative: Patient is a 79-year-old woman. She has history of essential hypertension, abdominal aortic aneurysm, paroxysmal atrial fibrillation on Eliquis, prior stroke, vertigo due to cerebrovascular disease, right homonymous superior quadrantanopia. She was at the [facility] purchasing rental shoes when she developed abrupt onset of vertigo. She states she is never had vertigo like this before. She also has double vision. In light of this nurse was asked to have someone paged a stroke team. She is not a candidate for TNKase since she is on Eliquis. Patient has slight headache. She has trouble speech or swallowing. Denies paresthesia, anesthesia Medicus. Denies weakness in her upper or lower extremities. She does have difficulty walking. She has a history of difficulty walking as well. Her ability to ambulate is worse now. 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 Arthritis Obesity Hyperlipidemia Vulvar dermatitis Lichen sclerosus Diabetes Sarcoidosis Spleen anomaly Splenomegaly History of blood clots Sleep apnea Hemorrhoids BMI 36.0-36.9,adult History of PSVT (paroxysmal supraventricular tachycardia) Home Medications ???Medication ???Instructions ???Recorded ???Last Taken ???Type paroxetine HCl 20 mg tablet (Paxil) 40 mg PO DAILY DEPRESSION 04/0301/22/25 History verapamil 80 mg tablet 80 mg PO BID HEART 04/03/16 History gabapentin 400 mg capsule 400 mg PO TID nerve pain 10/29/20 01/22/25 History fluticasone propionate 50 1 spray intranasal DAILY 09/09/21 01/21/25 History mcg/actuation nasal spray,suspension (Flonase Allergy Relief) apixaban 5 mg tablet (Eliquis) 5 mg PO BID 30 days #60 tabs 12/1901/22/25 Rx biotin 1 mg capsule 1 mg PO DAILY 01/22/25 01/22/25 Hi story cholecalciferol (vitamin D3) 50 50 mcg PO DAILY 01/22/25 01/22/25 History mcg (2,000 unit) tablet (Thera-D) magnesium 250 mg tablet 250 mg PO DAILY 01/22/25 01/22/25 History meclizine 25 mg tablet 25 mg PO 4X/DAY PRN Dizziness 12/27 05/21 Unknown History mecobalamin (vitamin B12) 1,000 1,000 mcg PO DAILY 01/22/25 History mcg lozenges metformin 500 mg tablet,extended 500 mg PO BID 01/22/25 01/22/25 Hi story release 24 hr multivitamin (Multiple Vitamins 1 tab PO DAILY 01/22/25 01/22/25 H istory tablet) paroxetine HCl 20 mg tablet 10 mg PO QHS 01/22/25 01/21/25 His tory rosuvastatin 10 mg tablet 10 mg PO DAILY 01/22/25 01/21/25 H istory Allergy/AdvReac Type Severity Reaction Status Date / Time lidocaine Allergy Intermediate tachycardia Verified 06/23/23 10:34 Penicillins Allergy Hives Verified 06/23/23 10:34 atorvastatin AdvReac Pain in Verified 06/23/23 10:34 joints hydrocodone bitartrate (From AdvReac Vomiting Verified 06/23/23 10:34 Vicodin) oxycodone HCl (From Percocet) AdvReac Vomiting Verified 06/23/23 10:34 Family History Daughter Hypertension Father Heart disease Mother Dementia Surgical History History of breast biopsy H/O splenectomy History of hysterectomy Social History Smoking Status: Never smoker alcohol intake: current details: social substance use type: does not use caffeine: Yes what type of physical activity do you participate in: walking seatbelt use: always do you feel safe at home: Yes 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 Normal [facility] Eosinophil percentageOrdered By: Alejandro Chaudhari on 01-22-2025 Eosinophils/100 WBC (Bld) 0.8 % 0-5 [facility] Erythrocyte distribution wid th (RBC) [Ratio]Ordered By: Alejandrodarien Chaudhari on 01-22-2025 Erythrocyte distribution width (RBC) [Entitic vol] 55.5 fL High 35.1-43.9 [facility] Erythrocyte distribution wid th ratioOrdered By: Alejandrodarien Chaudhari on 01-22-2025 Erythrocyte distribution width (RBC) [Ratio] 16.2 % High 11.6-14.6 [facility] Estimation of creatinine salomón aranceOrdered By: Alejandro Chaudhari on 01-22-2025 Estimated Creatinine Clearance Calc 54.29 ml/min 50-250 [facility] GFR/1.73 sq M.predicted rakel g non-blacks MDRD (S/P/Bld) [Vol rate/Area]Ordered By: Alejandro Chaudhari on 01-22-2025 Estimated GFR (MDRD) Non-Af Amer 70 >60 [facility] Comment on above: mL/min/1.73m2 CKD-EP I Creatinine Equation (2020) Glucose measurement at bedsi deOrdered By: Alejandro Chaudhari on 01-22-2025 Bedside Glucose (Misc Panel) 97 mg/dL 74-106 [facility] Comment on above: MANAGEMENT OF PATIEN T CARE PER NURSING PROTOCOL Glucose [Mass/Vol] 97 mg/dL 74-106 [facility] Comment on above: MANAGEMENT OF PATIEN T CARE PER NURSING PROTOCOL Hematocrit Auto (Bld) [Volum e fraction]Ordered By: Alejandrodarien Chaudhari 01-22-2025 Hematocrit (Bld) [Volume fraction] 41.0 % 37-47 [facility] Hemoglobin measurementOrdere d By: Alejandro Chaudhari on 01-22-2025 Hemoglobin (Bld) [Mass/Vol] 13.7 g/dL 12.0-15.0 [facility] Immature granulocytes/100 WB C Auto (Bld)Ordered By: Alejandrodarien Chaudhari 01-22-2025 Immature granulocytes/100 WBC (Bld) 0.300 % 0.0-0.9 [facility] Comment on above: IG% - Immature Granu locytes (promyelocytes, myelocytes and metamyelocytes) > 1% indicates that a LEFT SHIFT is Present. International normalized rat io (INR) calculationOrdered By: Alejandrodarien Chaudhari on 01-22-2025 INR Coag (Bld) [Relative time] 1.3 {INR} [facility] L499.0042on 01-22-2025 Trop T High Sen 7 ng/L Normal <=14 [facility] Comment on above: Performed By: #### L 499.0042 ####[facility] [address] [place], [address] L499.0043on 01-22-2025 Trop T High Sen 13 ng/L Normal <=14 [facility] Comment on above: Performed By: #### L 499.0043 #### [facility] Laboratory [address] [place], [address] L501.4021on 01-22-2025 Trop T High Sen 8 ng/L Normal <=14 [facility] Comment on above: Performed By: #### L 300.3900, L500.2500, L501.4021, L300.4310, L100.0100 #### [facility] [address] [place], [address] Lymphocytes Auto (Unsp spec) [#/Vol]Ordered By: Alejandro Julieno on 01-22-2025 Lymphocytes (Bld) [#/Vol] 6.29 10*3/uL High 0.83-4.51 [facility] Lymphocytes/100 WBC Auto (Un sp spec)Ordered By: Alejandro Chaudhari on 01-22-2025 Lymphocytes/100 WBC (Bld) 46.6 % High 19-41 [facility] MCV (mean corpuscular volume ) determinationOrdered By: Alejandrodarien Chaudhari on 01-22-2025 MCV (RBC) [Entitic vol] 93.8 fL 81-99 [facility] Mean corpuscular hemoglobin (MCH) determinationOrdered By: Alejandrodarien Chaudhari on 01-22-2025 MCH (RBC) [Entitic mass] 31.4 pg 27.0-32.0 [facility] Mean corpuscular hemoglobin concentration (MCHC) determinationOrdered By: Alejandrodarien Chaudhari on 01-22-2025 MCHC (RBC) [Mass/Vol] 33.4 g/dL 32-36 [facility] Mean platelet volume determi nationOrdered By: Alejandrodarien Chaudhari on 01-22-2025 Platelet mean volume (Bld) [Entitic vol] 11.5 fL 6.2-12.0 [facility] Monocyte percentageOrdered B y: Alejandrodarien Chaudhari on 01-22-2025 Monocytes/100 WBC (Bld) 12.1 % High 0-10 [facility] Neutrophil percentageOrdered By: Alejandrodarien Chaudhari on 01-22-2025 Neutrophils/100 WBC (Bld) 39.9 % Low 47-70 [facility] Nucleated red blood cell per centageOrdered By: Alejandro Chaudhari on 01-22-2025 Nucleated RBC/100 WBC (Bld) [Ratio] 0 % 0-5 [facility] Partial Thromboplast Timeon 01-22-2025 aPTT Coag (Bld) [Time] 26.8 s Normal 24.1-36.2 [facility] Comment on above: Performed By: #### L 300.3900, L500.2500, L501.4021, L300.4310, L100.0100 ####[facility] [id number] [place], [address] Platelet countOrdered By: Jammie Chaudhari on 01-22-2025 Platelets (Bld) [#/Vol] 386 10*3/uL 150-450 [facility] Platelet estimateOrdered By: Alejandrodarien Chaudhari on 01-22-2025 Platelets LM Ql (Bld) ADEQUATE ADEQ [facility] Platelets LM Ql (Bld)Ordered By: Alejandrodarien Chaudhari on 01-22-2025 Platelet Estimate ADEQUATE [facility] Potassium (Unsp spec) [Mass/ Vol]Ordered By: Alejandro Chaudhari on 01-22-2025 Potassium [Moles/Vol] 4.0 mmol/L 3.3-5.1 [facility] Comment on above: Hemolysis present, R esults could be affected. Prothrombin Time w/INRon INR Coag (PPP) [Relative time] 1.3 {INR} Normal [facility] Comment on above: Performed By: #### L 300.3900, L500.2500, L501.4021, L300.4310, L100.0100 ####[facility] [id number] [place], [address] PT Coag (PPP) [Time] 16.2 s High 11.7-14.9 [facility] Comment on above: Performed By: #### L 300.3900, L500.2500, L501.4021, L300.4310, L100.0100 ####[facility] [id number] [place], [address] Prothrombin timeOrdered By: Alejandro Chaudhari on 01-22-2025 PT Coag (PPP) [Time] 16.2 s High 11.7-14.9 [facility] RBC Auto (Bld) [#/Vol]Ordere d By: Alejandro Chaudhari on 01-22-2025 RBC (Bld) [#/Vol] 4.37 10*6/uL 4.2-5.4 [facility] STROKE Brain/Head without Co nton 01-22-2025 STROKE Brain/Head without Cont [facility] Services [address] [place] [address] STROKE Brain/Head without Cont MR#: [id number] Acct: [id number] Name: ELIZABETH RODRIGEZ Rep #: [id number] : 1945 F 79 From: Tanisha Perez nd, MD PCP: Dr. Yenifer Gonsalez MD Status: [facility] ER Study: STROKE Brain/Head without Cont Date of Exam: 0 01/22/25 Exam# [id number] Ordering Dr: Alejandro Chaudhari MD EXAM: STROKE BRAIN/HEAD WITHOUT CONT CLINICAL HISTORY: 79 y/o F with NEURO DEFICIT, ACUTE, STROKE SUSPECTED. Symptoms of diplopia and superior left homonymous quadrant visual disturbance. COMPARISON: CT head 01/12/2025. TECHNIQUE: Routine CT imaging of the head without IV contrast. Additional multiplanar reformats were obtained. Dose reduction techniques were used including intermediate exposure control (AEC),iterative reconstruction technique, and/or mA and/or KV dose adjustments based on patient's size. FINDINGS: Mild cerebral and cerebellar atrophy with concordant prominence of the ventricles and subarachnoid spaces. Mild patchy supratentorial white matter hypodensities. Chronic lacunar type infarcts within the bilateral caudate heads, anterior limb of the right internal capsule and bilateral basal ganglia. The landa-white matter interfaces are otherwise maintained. No evidence of acute intracranial hemorrhage or herniation. The orbits, visualized paranasal sinuses and mastoids are unremarkable. No acute calvarial fracture or scalp hematoma. CT/STROKE Brain/Head without Cont IMPRESSION: 1. No acute intracranial finding. 2. Findings of chronic microvascular ischemic changes and age-related changes. Reading Location: [facility] CC: Dr. Yenifer Gonsalez MD; Dr. Alejandro Chaudhari MD Home Therapy Clinician: Signed Normal [facility] STROKE CTA Head AND Neck W/C onon 01-22-2025 STROKE CTA Head AND Neck W/Con [facility] [address] [place] [id number] STROKE CTA Head AND Neck W/Con MR#: [id number] Acct: [id number] Name: ELIZABETH RODRIGEZ Rep #: [id number] : 1945 F 79 From: Tanisha Perez nd, MD PCP: Dr. Yenifer Gonsalez MD Status: REG ER Study: STROKE CTA Head AND Neck W/Con Date of Exam: 0 01/22/25 Exam# [id number] Ordering Dr: Alejandro Chaudhari MD PROCEDURE: STROKE CTA HEAD AND NECK W/CON 01/22/2025 REASON FOR EXAM: NEURO DEFICIT, ACUTE, STROKE SUSPECTED TECHNIQUE: CTA imaging of the head and neck from the aortic arch to the skull vertex with out constrast and with intravenous contrast. Multiplanar and multisequence images were obtained. 3D post processing with reformations, Maximum intensity projection (MIPs) Volume rendering and Shaded surface rendering was provided. CONTRAST: Isovue 370 VOLUME: 100 mL One or more dose reduction techniques were used (e.g., Automated exposure control, adjustment of the mA and/or kV according to patient size, use of iterative reconstruction technique). RADIATION DOSE SUMMARY: CTDlvol: 40 mGy DLP: 730 mGycm COMPARISON: Same-day CT head, CT head 01/12/2025. FINDINGS: See same day CT head for discussion of nonvascular findings. Three-vessel aortic arch with mixed calcific plaque of the aortic arch and its branch vessels without focal stenosis or occlusion. Calcific plaque of the right vertebral artery off its origin resulting in mild focal stenosis. The left vertebral artery is widely patent and dominant. Calcific plaque of the bilateral cervical carotid and cervical ICAs without focal stenosis by NASCET criteria. Minimal calcific plaque of the right carotid siphon. The bilateral anterior, middle and posterior cerebral arteries are widely patent. No aneurysm or AVM. origin of the left [employer]. Major venous structures: Unremarkable. Other findings: Cervical spondylosis. Mild biapical atelectasis/scarring. CT/STROKE CTA Head AND Neck W/Con IMPRESSION: 1. No large vessel occlusion, AVM or aneurysm. 2. No stenosis of the cervical carotid arteries by NASCET criteria. Reading Location: [facility] CC: Dr. Yenifer Gonsalez MD; Dr. Alejandro Chaudhari MD Home Therapy Clinician: Signed Normal [facility] Serum creatinine measurement (mass/volume)Ordered By: Alejandro Chaudhari on 01-22-2025 Creatinine [Mass/Vol] 0.85 mg/dL 0.70-1.20 [facility] Serum glucose measurement (m ass/volume)Ordered By: Alejandro Chaudhari on 01-22-2025 Glucose [Mass/Vol] 102 mg/dL High 70-99 [facility] Serum or plasma calcium maribel urement (mass/volume)Ordered By: Alejandro Chaudhari on 01-22-2025 Calcium [Mass/Vol] 9.7 mg/dL 7.6-11.0 [facility] Serum or plasma urea nitroge n measurement (mass/volume)Ordered By: Alejandro Chaudhari on 01-22-2025 Urea nitrogen [Mass/Vol] 11 mg/dL 4-19 [facility] Sodium levelOrdered By: Alejandro Chaudhari on 01-22-2025 Sodium [Moles/Vol] 136 mmol/L 133-145 [facility] Troponin T.cardiac High sens itivity method [Mass/Vol]Ordered By: Alejandro Chaudhari on 01-22-2025 Troponin T High Sensitivity 4 Hour 13 ng/L <14 [facility] Troponin T High Sensitivity 2 Hour 7 ng/L <14 [facility] Troponin T High Sensitivity 8 ng/L <14 [facility] Troponin T.cardiac [Mass/vol ume] in Serum or Plasma by High sensitivity methodOrdered By: Alejandro Chaudhari on 01-22-2025 Troponin T.cardiac High sensitivity method [Mass/Vol] 13 ng/L <14 [facility] Troponin T.cardiac High sensitivity method [Mass/Vol] 7 ng/L <14 [facility] Troponin T.cardiac High sensitivity method [Mass/Vol] 8 ng/L <14 [facility] White blood cell (WBC) count Ordered By: Alejandro Chaudhari on 01-22-2025 WBC (Bld) [#/Vol] 13.5 10*3/uL High 4.4-11.0 [facility] aPTT Coag (PPP) [Time]Ordere d By: Alejandro Chaudhari on 01-22-2025 aPTT Coag (Bld) [Time] 26.8 s 24.1-36.2 [facility] 36on 01-12-2025 36 S: Pt calling [facility] c/o head injury. B: This happened at 1400 today. A: Hand held part of shower hose fell off and hit pt on top of head, right side. No LOC. She has a 1.5 inch bump on head. No bleeding , lacerations or abrasions or bruising. Mild headache. Pt takes Eliquis. R: Advised pt to go to nearest ED now, and have another adult drive. Pt states she really would rather not. Advised her to call her [facility] PCP now. Care advice given. Pt verbalized understanding. Reason for Disposition Taking Coumadin (warfarin) or other strong blood thinner, or known bleeding disorder (e.g., thrombocytopenia) Protocols used: [id number]/Head without Contrasto n 01-12-2025 Brain/Head without Contrast [facility] [address] [place] [address] Brain/Head without Contrast MR#: [id number] Acct: [id number] Name: ELIZABETH RODRIGEZ Rep #: [id number] : 1945 F 79 From: Giovany Trent MD PCP: Dr. Yenifer Gonsalez MD Status: [facility] ER Study: Brain/Head without Contrast Date of Exam: 12/26 05/21 Exam# [id number] Ordering Dr: Uche Hanson DO PROCEDURE: BRAIN/HEAD WITHOUT CONTRAST 01/12/2025 REASON FOR EXAM: INJURY ON ELIQUIS TECHNIQUE: Head CT without intravenous contrast. Coronal and Sagittal reconstruction series were provided. One or more dose reduction techniques were used (e.g., Automated exposure control, adjustment of the mA and/or kV according to patient size, use of iterative reconstruction technique. FINDINGS: Brain: Low density in the periventricular white matter suggests mild chronic small vessel ischemic changes. CSF Spaces: Mild generalized cerebral atrophy Sinuses/Mastoids: Clear at visualized levels Bones: Unremarkable. CT/Brain/Head without Contrast IMPRESSION: CHRONIC CHANGES. NO ACUTE FINDINGS. Reading Location: [facility] CC: Dr. Uche Hanson DO; Dr. Yenifer Gonsalez MD Home Therapy Clinician: Signed Normal [facility] Emergency Department Summary on 01-12-2025 Emergency Department Summary [facility] Medical Records Department [address] [place] [address] Emergency Department Summary 01/12/25 MR#: [id number] Acct: [id number] Name: ELIZABETH RODRIGEZ Rep #: [id number] : 1945 79 From: Uche Hanson DO PCP: Dr. Yenifer Gonsalez MD Status:[facility] ER Location: ED HPI History of Present Illness Chief Complaint: Head Injury Informant: patient Narrative Narrative: 79-year-old female on Eliquis for atrial fibrillation presenting to the emergency room with head injury. Patient states she was in the shower. Showerhead which is large and heavy and is held up by a magnet fell and struck her in the head. She states that she was dazed and saw black for a second. She states that the injury caused her to lose control of her bowels. She states that the injury happened about 2-1/2 hours before the examination. No vomiting. She notes a hematoma to the back of her head. She denies any neck pain. She states that she feels fine but after speaking with several family members she decided to be seen. 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 Arthritis Obesity Hyperlipidemia Vulvar dermatitis Lichen sclerosus Diabetes Sarcoidosis Spleen anomaly Splenomegaly History of blood clots Sleep apnea Hemorrhoids BMI 36.0-36.9,adult History of PSVT (paroxysmal supraventricular tachycardia) Home Medications ???Medication ???Instructions ???Recorded ???Last Taken ???Type paroxetine HCl 20 mg tablet (Paxil) 20 mg PO BID DEPRESSION 6 10/28/20 History verapamil 80 mg tablet 80 mg PO BID HEART 04/03/16 History cranberry fruit concentrate 250 mg 250 mg PO TID supplement 9 10/28/20 History chewable tablet (Azo Cranberry) metformin 500 mg tablet 500 mg PO BID blood sugar 06/05/19 10/28/20 History Held on 12/18/22. Instructions: Hold for 1 day. naproxen 500 mg tablet 500 mg PO BID pain 06/05/19 History Held on 12/18/22. Instructions: Hold it while patient taking dual antiplatelet agent gabapentin 400 mg capsule 400 mg PO BID nerve pain 10/29/20 10/28/20 History clorazepate dipotassium 7.5 mg 7.5 mg PO BID PRN Anxiety 09/09/21 Unknown History tablet (Tranxene T-Tab) fluticasone propionate 50 1 spray intranasal DAILY 09/09/21 Unknown History mcg/actuation nasal spray,suspension (Flonase Allergy Relief) diazepam 5 mg tablet 5 mg PO Q8 PRN Muscle Spasm #12 Unknown Rx tabs clobetasol 0.05 % topical cream 1 applic topical DAILY 12/16/22 Un known History rosuvastatin 5 mg tablet (Crestor) 10 mg (2 x 5 mg) PO DAILY Unknown Rx cholesterol #30 tabs apixaban 5 mg tablet (Eliquis) 5 mg PO BID 30 days #60 tabs 12/19 Unknown Rx meclizine 25 mg tablet 25 mg PO 4X/DAY PRN PRN Dizziness 02/19/23 Unknown Rx #6 tabs ondansetron 4 mg disintegrating 4 mg PO Q4H PRN PRN Nausea #10 tab s 02/19/23 Unknown Rx tablet Allergy/AdvReac Type Severity Reaction Status Date / Time lidocaine Allergy Intermediate tachycardia Verified 06/23/23 10:34 Penicillins Allergy Hives Verified 06/23/23 10:34 atorvastatin AdvReac Pain in Verified 06/23/23 10:34 joints hydrocodone bitartrate (From AdvReac Vomiting Verified 06/23/23 10:34 Vicodin) oxycodone HCl (From Percocet) AdvReac Vomiting Verified 06/23/23 10:34 Family History Daughter Hypertension Father Heart disease Mother Dementia Surgical History History of breast biopsy H/O splenectomy History of hysterectomy Social History Smoking Status: Never smoker alcohol intake: current details: social substance use type: does not use caffeine: Yes what type of physical activity do you participate in: walking seatbelt use: always do you feel safe at home: Yes 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 Normal [facility] ALBUMIN/CREATININE RATIO, UR INEon 11-08-2024 Albumin DL <= 20 mg/L (U) [Mass/Vol] 22.7 mg/L Normal [facility] Comment on above: Order Comment: Speci men Type: URINE SPECIMENOrdering Facility: [facility] Address: [address] [place] [address] Performed By: #### U ACR ####[facility] LABCLIA [id number] [place] [address] [place] Albumin/Creatinine (U) [Mass ratio] 39 mg/g High <30 [facility] Comment on above: Order Comment: Speci men Type: URINE SPECIMENOrdering Facility: [facility] Address: [address] [place] [address] Result Comment: Adul t Male and Female Nephrotic Criteria: <30 mg/g is considered normal to mildly increased 30-300 mg/g is considered moderately increased >300 mg/g is considered severely increased KDIGO. (2013). KDIGO 2012 Clinical Practice Guideline for the Evaluation and Management of Chronic Kidney Disease. Official Journal of the International Society of Nephrology, 3(1), 1-150. Performed By: #### U ACR ####[facility] LABCLIA [id number] [place] [address] [place] Creatinine (U) [Mass/Vol] 57.8 mg/dL Normal 20.0-300.0 [facility] Comment on above: Order Comment: Speci men Type: URINE SPECIMENOrdering Facility: [facility] Address: [address] [place] [address] Performed By: #### U ACR ####[facility] LABCLIA [id number] [place] [id number] [place] 25(OH)D3 SerPl-mCncon 2024 25-hydroxyvitamin D3 [Mass/Vol] 51.4 ng/mL Normal 31.0-80.0 [facility] Comment on above: Order Comment: Speci men Type: BLOOD SPECIMENOrdering Facility: [facility] Address: [address] [place] [address] Performed By: #### 1 989-3 ####[facility] LABCLIA [id number] [place] [address] [place] CBC panel Auto (Bld)on 11-07 Erythrocyte distribution width (RBC) [Ratio] 16.1 % High 11.5-15.0 [facility] Comment on above: Order Comment: Speci men Type: BLOOD SPECIMENOrdering Facility: [facility] Address: [address] [place] [address] Performed By: #### 5 8410-2 ####[facility] [id number] [place] [address] [place] Hematocrit (Bld) [Volume fraction] 41.2 % Normal 36.0-46.0 [facility] Comment on above: Order Comment: Speci men Type: BLOOD SPECIMENOrdering Facility: [facility] Address: [address] [place] [address] Performed By: #### 5 8410-2 ####[facility] [id number] [place] [address] [place] Hemoglobin (Bld) [Mass/Vol] 13.2 g/dL Normal 11.5-15.5 [facility] Comment on above: Order Comment: Speci men Type: BLOOD SPECIMENOrdering Facility: [facility] Address: [address] [place] [address] Performed By: #### 5 8410-2 ####[facility] [id number] [place] [address] [place] MCH (RBC) [Entitic mass] 30.0 pg Normal 26.0-34.0 [facility] Comment on above: Order Comment: Speci men Type: BLOOD SPECIMENOrdering Facility: [facility] Address: [address] [place] [address] Performed By: #### 5 8410-2 ####[facility] GRAHAMWNCLIA [id number] [place] [address] [place] MCHC (RBC) [Mass/Vol] 32.0 g/dL Normal 30.5-36.[address] [facility] Comment on above: Order Comment: Speci men Type: BLOOD SPECIMENOrdering Facility: [facility] Address: [address] [place] [address] Performed By: #### 5 8410-2 ####[facility] [id number] [place] [address] [place] MCV (RBC) [Entitic vol] 93.6 fL Normal 80.0-100.0 C [facility] Comment on above: Order Comment: Speci men Type: BLOOD SPECIMENOrdering Facility: [facility] Address: [address] [place] [address] Performed By: #### 5 8410-2 ####[facility] [id number] [place] [address] [place] Nucleated RBC (Bld) [#/Vol] 10*3/uL Normal <0.01 [facility] Comment on above: Order Comment: Speci men Type: BLOOD SPECIMENOrdering Facility: [facility] Address: [address] [place] [address] Performed By: #### 5 8410-2 ####[facility] [id number] [address] [place] Platelet mean volume (Bld) [Entitic vol] 10.5 fL Normal 9.0-12.7 [facility] Comment on above: Order Comment: Speci men Type: BLOOD SPECIMENOrdering Facility: [facility] Address: [address] [place] [address] Performed By: #### 5 8410-2 ####[facility] [id number] [place] [address] [place] Platelets (Bld) [#/Vol] 386 10*3/uL Normal 150-400 [facility] Comment on above: Order Comment: Speci men Type: BLOOD SPECIMENOrdering Facility: [facility] Address: [address] [place] [address] Performed By: #### 5 8410-2 ####[facility] [id number] [place] [address] [place] RBC (Bld) [#/Vol] 4.40 10*6/uL Normal 3.90-5.20 [facility] Comment on above: Order Comment: Speci men Type: BLOOD SPECIMENOrdering Facility: [facility] Address: [address] [place] [address] Performed By: #### 5 8410-2 ####[facility]MANMARY [id number] [place] [address] [place] WBC (Bld) [#/Vol] 8.26 10*3/uL Normal 3.70-11.00 [facility] Comment on above: Order Comment: Speci men Type: BLOOD SPECIMENOrdering Facility: [facility] Address: [address] [place] [address] Performed By: #### 5 8410-2 ####[facility]MANDEBBIEA [id number] [place] [address] [place] Comprehensive metabolic 2000 panelon 11-07-2024 Albumin [Mass/Vol] 4.2 g/dL Normal 3.9-4.9 [facility] Comment on above: Order Comment: Speci men Type: BLOOD SPECIMENOrdering Facility: [facility] Address: [address] [place] [address] Performed By: #### 1 9123-9, 38051-6 ####[facility] DORALRosaNCCAMPOS [id number] [place] [address] [place] ALP [Catalytic activity/Vol] 72 U/L Normal 34-123 [facility] Comment on above: Order Comment: Speci men Type: BLOOD SPECIMENOrdering Facility: [facility] Address: [address] [place] [address] Performed By: #### 1 9123-9, 25752-4 ####[facility] MILLWNCLIA [id number] [place] [address] [place] ALT [Catalytic activity/Vol] 24 U/L Normal 7-38 [facility] Comment on above: Order Comment: Speci men Type: BLOOD SPECIMENOrdering Facility: [facility] Address: [address] [place] [address] Performed By: #### 1 9123-9, 86900-5 ####[facility]CL[facility] [id number] [place] [address] [place] Anion gap [Moles/Vol] 13 mmol/L Normal 8-[address] [facility] Comment on above: Order Comment: Speci men Type: BLOOD SPECIMENOrdering Facility: [facility] Address: [address] [place] [address] Performed By: #### 1 9123-9, 65891-5 ####[facility]CL[facility] [id number] [place] [address] [place] AST [Catalytic activity/Vol] 27 U/L Normal 13-35 [facility] Comment on above: Order Comment: Speci men Type: BLOOD SPECIMENOrdering Facility: [facility] Address: [address] [place] [address] Performed By: #### 1 9123-9, 78090-5 ####[facility]CL[facility] [id number] [place] [address] [place] Bilirubin [Mass/Vol] 0.2 mg/dL Normal 0.2-1.3 [facility] Comment on above: Order Comment: Speci men Type: BLOOD SPECIMENOrdering Facility: [facility] Address: [address] [place] [address] Performed By: #### 1 9123-9, 11808-3 ####[facility] RL WAYNENCKINA [id number] [place] [address] [place] Calcium [Mass/Vol] 10.2 mg/dL Normal 8.5-10.2 [facility] Comment on above: Order Comment: Speci men Type: BLOOD SPECIMENOrdering Facility: [facility] Address: [address] [place] [address] Performed By: #### 1 9123-9, 16947-8 ####[facility] GRAHAMSUDLERSVILLENCCAMPOS [id number] [place] [address] [place] Chloride [Moles/Vol] 102 mmol/L Normal 98-107 [facility] Comment on above: Order Comment: Speci men Type: BLOOD SPECIMENOrdering Facility: [facility] Address: [address] [place] [address] Performed By: #### 1 9123-9, 23102-2 ####[facility] GRAHAMSUDLERSVILLENCKINA [id number] [place] [address] [place] CO2 [Moles/Vol] 25 mmol/L Normal 22-30 [facility] Comment on above: Order Comment: Speci men Type: BLOOD SPECIMENOrdering Facility: [facility] Address: [address] [place] [address] Performed By: #### 1 9123-9, 31853-6 ####[facility]MANNCL[facility] [id number] [place] [address] [place] Creatinine [Mass/Vol] 0.74 mg/dL Normal 0.58-0.[address] [facility] Comment on above: Order Comment: Speci men Type: BLOOD SPECIMENOrdering Facility: [facility] Address: [address] [place] [address] Performed By: #### 1 9123-9, 57481-2 ####[facility] [id number] [place] [address] [place] Creatinine and Glomerular filtration rate.predicted panel (S/P/Bld) 83 mL/min/1.73m??? Normal >=60 [facility] Comment on above: Order Comment: Severino perdomo Type: BLOOD SPECIMENOrdering Facility: [facility] Address: [address] [place] [address] Result Comment: Dione mated Glomerular Filtration Rate (eGFR) is calculated using the 2020 CKD-EPI creatinine equation. This equation utilizes serum creatinine, sex, and age as parameters. The creatinine assay has traceable calibration to isotope dilution-mass spectrometry. Refer to KDIGO guidelines for clinical interpretation. In patients with unstable renal function, e.g. those with acute kidney injury, the eGFR may not accurately reflect actual GFR. Performed By: #### 1 9123-9, 97084-8 ####[facility] [id number] [place] [address] [place] Glucose [Mass/Vol] 129 mg/dL High 74-99 [facility] Comment on above: Order Comment: Severino perdomo Type: BLOOD SPECIMENOrdering Facility: [facility] Address: [address] [place] [address] Result Comment: The [place] Diabetes Association (ADA) provides guidance for cutoff values for fasting glucose and random glucose. The ADA defines fasting as no caloric intake for at least 8 hours. Fasting plasma glucose results between 100 to 125 mg/dL indicate increased risk for diabetes (prediabetes). Fasting plasma glucose results greater than or equal to 126 mg/dL meet the criteria for diagnosis of diabetes. In the absence of unequivocal hyperglycemia, results should be confirmed by repeat testing. In a patient with classic symptoms of hyperglycemia or hyperglycemic crisis, random plasma glucose results greater than or equal to 200 mg/dL meet the criteria for diagnosis of diabetes. Reference: Standards of Medical Care in Diabetes 2016, [place] Diabetes Association. Diabetes Care. 2016.39(Suppl 1). Performed By: #### 1 9123-9, 93457-9 ####[facility] RL MILLTOWNCLIA [id number] [place] [address] [place] Potassium [Moles/Vol] 4.3 mmol/L Normal 3.7-5.[address] [facility] Comment on above: Order Comment: Speci men Type: BLOOD SPECIMENOrdering Facility: [facility] Address: [address] [place] [address] Performed By: #### 1 9123-9, 99817-0 ####[facility] RL MILLTOWNCLIA [id number] [place] [address] [place] Protein [Mass/Vol] 7.6 g/dL Normal 6.3-8.0 [facility] Comment on above: Order Comment: Speci men Type: BLOOD SPECIMENOrdering Facility: [facility] Address: [address] [place] [address] Performed By: #### 1 91239, 32330-7 ####[facility] RL MILLTOWNCLIA [id number] [place] [address] [place] Sodium [Moles/Vol] 140 mmol/L Normal 136-144 [facility] Comment on above: Order Comment: Speci men Type: BLOOD SPECIMENOrdering Facility: [facility] Address: [address] [place] [address] Performed By: #### 1 239, 38618-6 ####[facility] RL MILLTOWNCLIA [id number] [place] [address] [place] Urea nitrogen [Mass/Vol] 14 mg/dL Normal 7-21 [facility] Comment on above: Order Comment: Speci men Type: BLOOD SPECIMENOrdering Facility: [facility] Address: [address] [place] [address] Performed By: #### 1 9123-9, 48054-2 ####[facility] RL [facility] [id number] [place] [address] [place] HbA1c (Bld)on 11-07-2024 Average glucose Estimated from glycated hemoglobin (Bld) [Mass/Vol] 146 mg/dL Normal [facility] Comment on above: Order Comment: Severino perdomo Type: BLOOD SPECIMENOrdering Facility: [facility] Address: [address] [place] [address] Result Comment: eAG: (Estimated average glucose) is a calculated value from HgbA1c and is member services representative of the average blood glucose level in the last 2-3 month period. Performed By: #### 5 5454-3 ####[facility] LABIA [id number] [address] [place] [facility] HbA1c (Bld) [Mass fraction] 6.7 % High 4.3-5.6 [facility] Comment on above: Order Comment: Severino perdomo Type: BLOOD SPECIMENOrdering Facility: [facility] Address: [address] [place] [address] Result Comment: Amer [place] Diabetes Association guidelines indicate that patients with HgbA1c in the range 5.7-6.4% are at increased risk for development of diabetes, and intervention by lifestyle modification may be beneficial. HgbA1c greater or equal to 6.5% is considered diagnostic of diabetes. Performed By: #### 5 5454-3 ####[facility] LABIA [id number] [place] [address] [place] Lipid 1996 panelon 5 Cholesterol [Mass/Vol] 158 mg/dL Normal <200 [facility] Comment on above: Order Comment: Severino perdomo Type: BLOOD SPECIMENOrdering Facility: [facility] Address: [address] [place] [address] Result Comment: <200 mg/dL, Desirable 200-239 mg/dL, Borderline high >239 mg/dL, High Performed By: #### 2 4331-1 ####[facility] LABIA [id number] [place] AVENUEDESK [id number] [place] [address] [id number] [place] [address] [place] Cholesterol in HDL [Mass/Vol] 43 mg/dL Normal >39 [facility] Comment on above: Order Comment: Severino men Type: BLOOD SPECIMENOrdering Facility: [facility] Address: [address] [place] [address] Result Comment: 40-5 9 mg/dL, Acceptable >59 mg/dL, High: Negative risk factor for coronary heart disease <40 mg/dL, Low: Positive risk factor for coronary heart disease Performed By: #### 2 4331-1 ####[facility] LABCLIA [id number] [address] [id number] [place] [address] [place] Cholesterol in LDL [Mass/Vol] 80 mg/dL Normal <100 [facility] Comment on above: Order Comment: Maryi men Type: BLOOD SPECIMENOrdering Facility: [facility] Address: [address] [place] [address] Result Comment: <100 mg/dL, Optimal 100-129 mg/dL, Near optimal/above optimal 130-159 mg/dL, Borderline high 160-189 mg/dL, High >189 mg/dL, Very high Secondary prevention optimal LDL Cholesterol levels are recommended to be < 70 mg/dL Performed By: #### 2 4331-1 ####[facility] LABCLIA [id number] [address] [id number] [place] [address] [place] Cholesterol in LDL/Cholesterol in HDL [Mass ratio] 1.86 {ratio} Normal <2.54 [facility] Comment on above: Order Comment: Maryi men Type: BLOOD SPECIMENOrdering Facility: [facility] Address: [address] [place] [address] Result Comment: Refe rence: 1. National Cholesterol Education Program ATP III Guideline At-A-Glance Quick Desk Reference: National Heart, Lung, and Blood [place]. National Institutes of Health. 2001: NIH Publication No. 01-3305. 2. An International Atherosclerosis Society position paper: global recommendations for the management of dyslipidemia: executive summary, Atherosclerosis. 2014: 232(2):410-413. Performed By: #### 2 4331-1 ####[facility] LABCLIA [id number] [id number] [place] [address] [place] Cholesterol in VLDL [Mass/Vol] 35 mg/dL High <30 [facility] Comment on above: Order Comment: Speci men Type: BLOOD SPECIMENOrdering Facility: [facility] Address: [address] [place] [address] Performed By: #### 2 4331-1 ####[facility] LABCLIA [id number] [address] [id number] [place] [address] [place] [facility] Cholesterol non HDL [Mass/Vol] 115 mg/dL Normal <130 [facility] Comment on above: Order Comment: Speci men Type: BLOOD SPECIMENOrdering Facility: [facility] Address: [address] [place] [address] Result Comment: <130 mg/dL, Optimal 130-159 mg/dL, Near optimal/above optimal 160-189 mg/dL, Borderline high 190-219 mg/dL, High >219 mg/dL, Very high Secondary prevention optimal non HDL Cholesterol levels are recommended to be <100 mg/dL Performed By: #### 2 4331-1 ####[facility] LABCLIA [id number] [address] [id number] [place] [address] [place] Cholesterol.total/Mihaela sterol in HDL [Mass ratio] 3.67 {ratio} Normal <5.10 [facility] Comment on above: Order Comment: Speci men Type: BLOOD SPECIMENOrdering Facility: [facility] Address: [address] [place], [place] [address] Performed By: #### 2 4331-1 ####[facility] LABCLIA [id number] [address] [id number] [place] [address] [place] FASTING TIME 12 hrs Normal [facility] Comment on above: Order Comment: Speci men Type: BLOOD SPECIMENOrdering Facility: [facility] Address: [address] [place] [address] Performed By: #### 2 4331-1 ####[facility] LABCLIA [id number] [address] [id number] [place] [address] [place] Triglyceride [Mass/Vol] 173 mg/dL High <150 [facility] Comment on above: Order Comment: Speci men Type: BLOOD SPECIMENOrdering Facility: [facility] Address: [address] [place] [address] Result Comment: <150 mg/dL, Normal 150-199 mg/dL, Borderline high 200-499 mg/dL, High >499 mg/dL, Very high Performed By: #### 2 4331-1 ####[facility] LABCLIA [id number] [address] [id number] [place] [address] [place] Magnesium [facility] Magnesium [Mass/Vol] 2.2 mg/dL Normal 1.7-2.3 [facility] Comment on above: Order Comment: Speci men Type: BLOOD SPECIMENOrdering Facility: [facility] Address: [address] [place] [address] Performed By: #### 1 9123-9, 55915-2 ####[facility] RL CANALESMARY [id number] [address] OF [facility] CNOVon 09-05-2024 CNOV Office Visit (INTMWS ) ELIZABETH RODRIGEZ ([id number]) 1945 F Date Time Provider Department 09/05/24 5:20 PM YENIFER GONSALEZ INTMWS During your visit today, we recorded the following information about you: Temperature Pulse Respiration Blood pressure 98.9 degrees 96/minute 16/minute 128/72 Weight Height 82 kg 1.535 m Yenifer Gonsalez MD 09/28/2024 11:54 PM Signed This note was created using Gynesonicsriter. Subjective Elizabeth Rodrigez is a 79 year old female. HISTORY Elizabeth Rodrigez is a 79 year old lady here for Medicare Annual Wellness Visit and yearly exam and follow up appointment. Elizabeth Rodrigez is a 79-year-old female with a history of atrial fibrillation, type 2 diabetes mellitus, hypercholesterolemia, and obstructive sleep apnea, presenting for a Medicare Annual Wellness Visit. Elizabeth reports a tickly cough, which she attributes to the dry air and allergies. She uses three humidifiers at home to alleviate the dryness. She also experiences nocturnal leg cramps and inquires about magnesium supplementation to aid sleep. She denies taking any medications that might contribute to low magnesium levels, such as acid blockers or diuretics. She has been taking Eliquis once daily due to cost constraints, despite the prescribed twice-daily regimen. She has enough medication to last until the end of the month. She also takes Crestor daily and requests a refill. She uses CPAP regularly and benefits from its use. For allergies, she uses Flonase as needed, currently twice daily. She reports a stable weight of 177 lbs and exercises about once a week for 20 minutes. She expresses interest in diet medication but acknowledges not always eating healthily. She experiences diarrhea a couple of times a week, lasting a day, and denies constipation. She has a broken tooth but is hesitant to have it extracted. She has difficulty hearing and finds her current hearing aids ineffective. She follows up with a neurologist but has not been seen in over a year. She has a living will and healthcare durable power of criminal attorney, with her daughter and granddaughter designated as decision-makers. PAST MEDICAL HISTORY Diagnosis Date Allergic rhinitis, cause unspecified Allergic rhinitis Carpal tunnel syndrome Depressive disorder, not elsewhere classified Disorder of bone and cartilage, unspecified Dysmetabolic syndrome X Dyspepsia and other specified disorders of function of stomach Dyspepsia Generalized anxiety disorder Anxiety, Generalized Generalized osteoarthrosis, involving hand Hemorrhage of gastrointestinal tract, unspecified Lichen sclerosus saw Dr. Jarvis Migraine without aura Obstructive sleep apnea (adult) (pediatric) uses C-PAP Other specified cardiac dysrhythmias(427.89) Panic disorder without agoraphobia Pure hypercholesterolemia Current Outpatient Medications Medication Sig phenazopyridine (PYRIDIUM) 200 mg tablet Take 1 tablet by mouth three times a day as needed. predniSONE (DELTASONE) 10 mg tablet Take 40 mg x 3 days, 20 mg x 3 days, 10 mg x 3 days. Take with food, once daily acyclovir (ZOVIRAX) 400 mg tablet Take 1 tablet by mouth two times a day. verapamil 80 mg tablet Take 1 tablet by mouth two times a day. gabapentin (NEURONTIN) 300 mg capsule Take 1 capsule by mouth three times a day. clobetasol (TEMOVATE) 0.05 % cream Apply 1 application to affected area once daily as needed. alendronate (FOSAMAX) 70 mg tablet Take 1 tablet by mouth one time a week. Take with a full glass of water, on an empty stomach; do NOT lie down for 30minutes. PARoxetine (PAXIL) 20 mg tablet Take 2 tablets by mouth every morning AND 0.5 tablets every evening. metFORMIN ER (GLUCOPHAGE XR) 500 mg 24 hr tablet Take 1 tablet by mouth two times a day before meals. or as directed rosuvastatin (CRESTOR) 10 mg tablet Take 1 tablet by mouth once daily. As directed Cholecalciferol, Vitamin D3, (VITAMIN D-3) 50 mcg (2,000 unit) cap Take 1 capsule by mouth once daily. apixaban (ELIQUIS) 5 mg tab(s) Take 1 tablet by mouth two times a day. cyanocobalamin (VITAMIN B-12) 1,000 mcg tab Take 1,000 mcg by mouth once daily. HAIR, SKIN AND NAILS, BIOTIN, ORAL Take 1 capsule by mouth once daily. albuterol HFA (PROVENTIL HFA, VENTOLIN HFA) 90 mcg/actuation inhaler INHALE 2 PUFFS BY MOUTH UP TO 4 TIMES DAILY NEEDED acetaminophen (TYLENOL EX STR ARTHRITIS PAIN ORAL) Take by mouth as needed. meclizine (ANTIVERT) 25 mg tab Take 1 tablet by mouth every 6 hours as needed (dizziness/vertigo). CPAP Initiate CPAP @ 12 cm of water with humidification. Mask (per patient preference) optional chin strap (if indicated) , filters, tubing, humidifier and lifetime supplies. fluticasone (FLONASE) 50 mcg/actuation nasal spray Use 2 Sprays in each nostril once daily. for sinus drainage and genstion pumpkin seed extract-soy germ (AZO B (more content not included)... Normal [facility] 07-25-2024 [facility] Telephone (INTMWS) ELIZABETH RODRIGEZ ([id number]) 1945 F Date Time Provider Department 07/25/24 YENIFER GONSALEZ INTWS During your visit today, we recorded the following information about you: Yuliya Aguilera LPN 07/25/2024 12:57 PM Signed Emily from [employer] calling she is faxing form for CPAP supplies for the patient. Asked to have patient call the office to tell us what is needed, may need appt also. She said patient had phoned her June 27 for the request. Allergies As of Date: 07/25/2024 Noted Allergy Reaction EPINEPHRINE 11/17/2019 14 - Other: See Comments Comments: Tachycardia, becomes incoherent PENICILLINS 08/13/2005 2 - Rash PERCOCET (OXYCODONE-ACETAMINOPHE N)05/24/2008 11 - Vomiting Comments: It makes her feel drunk XYLOCAINE (LIDOCAINE HCL (LOCAL A*08/14/2005 14 - Other: See Comments Comments: tachycardia--Not really sure if had reaction to this or if was the epinephrine Date Reviewed: 07/13/2024 Reviewed by: Candis Corona MA - Fully Assessed Reason for Visit: Jim heredia order form for CPAP supplies [Other] Prescriptions as of 08/02/2024 - phenazopyridine (PYRIDIUM) 200 mg tablet Take 1 tablet by mouth three times a day as needed. - predniSONE (DELTASONE) 10 mg tablet Take 40 mg x 3 days, 20 mg x 3 days, 10 mg x 3 days. Take with food, once daily - acyclovir (ZOVIRAX) 400 mg tablet Take 1 tablet by mouth two times a day. - verapamil 80 mg tablet Take 1 tablet by mouth two times a day. - gabapentin (NEURONTIN) 300 mg capsule Take 1 capsule by mouth three times a day. - clobetasol (TEMOVATE) 0.05 % cream Apply 1 application to affected area once daily as needed. - alendronate (FOSAMAX) 70 mg tablet Take 1 tablet by mouth one time a week. Take with a full glass of water, on an empty stomach; do NOT lie down for 30minutes. - PARoxetine (PAXIL) 20 mg tablet Take 2 tablets by mouth every morning AND 0.5 tablets every evening. - metFORMIN ER (GLUCOPHAGE XR) 500 mg 24 hr tablet Take 1 tablet by mouth two times a day before meals. or as directed - rosuvastatin (CRESTOR) 10 mg tablet Take 1 tablet by mouth once daily. As directed - Cholecalciferol, Vitamin D3, (VITAMIN D-3) 50 mcg (2,000 unit) cap Take 1 capsule by mouth once daily. - apixaban (ELIQUIS) 5 mg tab(s) Take 1 tablet by mouth two times a day. - cyanocobalamin (VITAMIN B-12) 1,000 mcg tab Take 1,000 mcg by mouth once daily. - HAIR, SKIN AND NAILS, BIOTIN, ORAL Take 1 capsule by mouth once daily. - albuterol HFA (PROVENTIL HFA, VENTOLIN HFA) 90 mcg/actuation inhaler INHALE 2 PUFFS BY MOUTH UP TO 4 TIMES DAILY NEEDED - acetaminophen (TYLENOL EX STR ARTHRITIS PAIN ORAL) Take by mouth as needed. - meclizine (ANTIVERT) 25 mg tab Take 1 tablet by mouth every 6 hours as needed (dizziness/vertigo). - CPAP Initiate CPAP @ 12 cm of water with humidification. Mask (per patient preference) optional chin strap (if indicated) , filters, tubing, humidifier and lifetime supplies. - fluticasone (FLONASE) 50 mcg/actuation nasal spray Use 2 Sprays in each nostril once daily. for sinus drainage and genstion - pumpkin seed extract-soy germ (AZO BLADDER CONTROL) 300 mg cap Take 1-3 capsules by mouth once daily. (usually just needs 1 capsule daily) - albuterol (PROVENTIL) 5 mg/mL nebu Inhale 0.5 mL as instructed one time only for 1 dose. 1 DOSE NOW - BACK OFFICE. PLACE 0.5 ML PER DROPPER AND 2.5 ML OF NORMAL SALINE INTO RESERVOIR. - COMPOUNDED PRESCRIPTION CPAP mask - COMPOUNDED PRESCRIPTION CPAP mask--Mirage FX with formal mask fitting Problem List As Of Date 07/25/2024 Noted Resolved Disorder of bone and cartilage [M89.9, M94.9] ALLERGIC RHINITIS NOS [J30.9] Dyspepsia and other specified disorders of [facility]* 05/12/2006 GENERALIZED ANXIETY DIS [F41.1] Recurrent major depressive disorder, in partial* PURE HYPERCHOLESTEROLEM [E78.00] GEN OSTEOARTHROS-HAND [M15.9] CARDIAC DYSRHYTHMIAS NEC [I49.8] 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] MELENA, BLOOD IN STOOL [K92.1] 03/02/2006 05/12/2006 GASTROINTEST HEMORR NOS [K92.2] 05/12/2006 MGRN WO [facility] WO [facility] MGR [G43.009] 09/12/2008 Ascending aortic aneurysm (HCC) [I71.21] 09/12/2008 ELISHA on CPAP [G47.33] 06/18/2015 Non morbid obesity due to excess calories [E66.*07/25/2015 Primary osteoarthritis of both knees [M17.0] 10/14/2015 Chronic pain of left knee [M25.562, G89.29] 10/14/2015 PSVT (paroxysmal supraventricular tachycardia) * Lichen sclerosus [L90.0] Hearing difficulty of both ears [H91.93] 07/11/2017 Controlled type 2 diabetes mellitus without com*08/28/2018 Chronic pain of right knee [M25.561, G89.29] 12/30/2018 Obesity, Class I, BMI 30-34.9 [E66.811] 07/19/2021 Compression fracture of L1 lumbar vertebra (HCC*06/24/2022 Spinal stenosis of lumbar region [M48.061] 07/02/2022 12/28/2022 Vertigo [R42] 07/02/2022 12/28/2022 Gait inst (more content not included)... Normal [facility] 07-16-2024 [facility] (UCWSTR[facility] ELIZABETH RODRIGEZ ([id number]) 1945 F Date Time Provider Department 07/16/24 [facility] During your visit today, we recorded the following information about you: Candis Corona MA 07/16/2024 9:23 AM Signed ----- Message from Juan David Díaz APRN.BE[employer] sent at 07/16/2024 8:16 AM EDT ----- Please advise patient: The urine culture grew bacteria that should be eliminated by the antibiotic you were prescribed. Take as directed. Follow instructions given by provider at visit, f/u with PCP if symptoms persist or worsen. ANA Minaya Alexandra, MA 07/16/2024 9:25 AM Signed Patient notified of results, verbalized understanding of instructions given. Candis Corona MA Allergies As of Date: 07/16/2024 Noted Allergy Reaction EPINEPHRINE 11/17/2019 14 - Other: See Comments Comments: Tachycardia, becomes incoherent PENICILLINS 08/13/2005 2 - Rash PERCOCET (OXYCODONE-ACETAMINOPHE N)05/24/2008 11 - Vomiting Comments: It makes her feel drunk XYLOCAINE (LIDOCAINE HCL (LOCAL A*08/14/2005 14 - Other: See Comments Comments: tachycardia--Not really sure if had reaction to this or if was the epinephrine Date Reviewed: 07/13/2024 Reviewed by: Candis Corona MA - Fully Assessed Prescriptions as of 07/16/2024 - phenazopyridine (PYRIDIUM) 200 mg tablet Take 1 tablet by mouth three times a day as needed. - cephALEXin (KEFLEX) 500 mg capsule Take 1 capsule by mouth two times a day for 7 days. - predniSONE (DELTASONE) 10 mg tablet Take 40 mg x 3 days, 20 mg x 3 days, 10 mg x 3 days. Take with food, once daily - acyclovir (ZOVIRAX) 400 mg tablet Take 1 tablet by mouth two times a day. - verapamil 80 mg tablet Take 1 tablet by mouth two times a day. - gabapentin (NEURONTIN) 300 mg capsule Take 1 capsule by mouth three times a day. - clobetasol (TEMOVATE) 0.05 % cream Apply 1 application to affected area once daily as needed. - alendronate (FOSAMAX) 70 mg tablet Take 1 tablet by mouth one time a week. Take with a full glass of water, on an empty stomach; do NOT lie down for 30minutes. - PARoxetine (PAXIL) 20 mg tablet Take 2 tablets by mouth every morning AND 0.5 tablets every evening. - metFORMIN ER (GLUCOPHAGE XR) 500 mg 24 hr tablet Take 1 tablet by mouth two times a day before meals. or as directed - rosuvastatin (CRESTOR) 10 mg tablet Take 1 tablet by mouth once daily. As directed - Cholecalciferol, Vitamin D3, (VITAMIN D-3) 50 mcg (2,000 unit) cap Take 1 capsule by mouth once daily. - apixaban (ELIQUIS) 5 mg tab(s) Take 1 tablet by mouth two times a day. - cyanocobalamin (VITAMIN B-12) 1,000 mcg tab Take 1,000 mcg by mouth once daily. - HAIR, SKIN AND NAILS, BIOTIN, ORAL Take 1 capsule by mouth once daily. - albuterol HFA (PROVENTIL HFA, VENTOLIN HFA) 90 mcg/actuation inhaler INHALE 2 PUFFS BY MOUTH UP TO 4 TIMES DAILY NEEDED - acetaminophen (TYLENOL EX STR ARTHRITIS PAIN ORAL) Take by mouth as needed. - meclizine (ANTIVERT) 25 mg tab Take 1 tablet by mouth every 6 hours as needed (dizziness/vertigo). - CPAP Initiate CPAP @ 12 cm of water with humidification. Mask (per patient preference) optional chin strap (if indicated) , filters, tubing, humidifier and lifetime supplies. - fluticasone (FLONASE) 50 mcg/actuation nasal spray Use 2 Sprays in each nostril once daily. for sinus drainage and genstion - pumpkin seed extract-soy germ (AZO BLADDER CONTROL) 300 mg cap Take 1-3 capsules by mouth once daily. (usually just needs 1 capsule daily) - albuterol (PROVENTIL) 5 mg/mL nebu Inhale 0.5 mL as instructed one time only for 1 dose. 1 DOSE NOW - BACK OFFICE. PLACE 0.5 ML PER DROPPER AND 2.5 ML OF NORMAL SALINE INTO RESERVOIR. - COMPOUNDED PRESCRIPTION CPAP mask - COMPOUNDED PRESCRIPTION CPAP mask--Mirage FX with formal mask fitting Problem List As Of Date 07/16/2024 Noted Resolved Disorder of bone and cartilage [M89.9, M94.9] ALLERGIC RHINITIS NOS [J30.9] Dyspepsia and other specified disorders of func* 05/12/2006 GENERALIZED ANXIETY DIS [F41.1] Recurrent major depressive disorder, in partial* PURE HYPERCHOLESTEROLEM [E78.00] GEN OSTEOARTHROS-HAND [M15.9] CARDIAC DYSRHYTHMIAS NEC [I49.8] 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] MELENA, BLOOD IN STOOL [K92.1] 03/02/2006 05/12/2006 GASTROINTEST HEMORR NOS [K92.2] 05/12/2006 MGRN WO [facility] WO [facility] MGR [G43.009] 09/12/2008 Ascending aortic aneurysm (HCC) [I71.21] 09/12/2008 ELISHA on CPAP [G47.33] 06/18/2015 Non morbid obesity due to excess calories [E66.*07/25/2015 Primary osteoarthritis of both knees [M17.0] 10/14/2015 Chronic pain of left knee [M25.562, G89.29] 10/14/2015 PSVT (paroxysmal supraventricular tachycardia) * Lichen sclerosus [L90.0] Hearing difficulty of both ears [H91.93] 07/11/2017 Controlled type 2 diabetes mellitus with (more content not included)... Normal [facility] Bacteria [facility] 4 Bacteria identified Cx Nom (U) ORGANISM ID: 1 >=100,000 CFU/ml Escherichia coli ORGANISM ID: 1 (ESCHERICHIA COLI) ANTIBIOTIC INTERPRETATION CHRIS STATUS REFERENCE RANGE Ampicillin R >=32 F Susceptible <=8 , Intermediate >8 , Resistant >16 Cefazolin S <=4 F Susceptible 0-16 , Intermediate <0 or >16 , Resistant >16 For uncomplicated urinary tract infections, cefazolin results can be used to predict susceptibility or resistance to cephalexin. Ceftriaxone S <=1 F Susceptible <=1 , Intermediate >1 , Resistant >=4 Cefepime S <=1 F Susceptible <=2 , Susceptible-Dose Dependent >2 , Resistant >=16 Ertapenem S <=0.5 F Susceptible <=0.5 , Intermediate >.5 , Resistant >1 Meropenem S <=0.25 F Susceptible <=1 , Intermediate >1 , Resistant >2 Ampicillin/Sulbact I 16 F Susceptible <=8 , Intermediate >8 , Resistant >16 Piperacillin/Tazobac S <=4 F Susceptible <16 , Susceptible-Dose Dependent >=16 , Resistant >=32 Gentamicin S <=1 F Susceptible <=2 , Intermediate >2 , Resistant >=8 Tobramycin S <=1 F Susceptible <4 , Intermediate >=4 , Resistant >=8 Trimeth sulfameth S <=20 F Susceptible <=40 , Resistant >40 Ciprofloxacin S <=0.25 F Susceptible <0.5 , Intermediate >=.5 , Resistant >=1 Nitrofurantoin S <=16 F Susceptible <=32 , Intermediate >32 , Resistant >64 Abnormal [facility] Comment on above: Performed By: #### 6 30-4 ####[facility] LABCLIA [id number] [address] CNOVon 07-13-2024 CNOV Office Visit (UCWSTR ) ELIZABETH RODRIGEZ ([id number]) 1945 F Date Time Provider Department 07/13/24 6:45 PM [facility] During your visit today, we recorded the following information about you: Temperature Pulse Respiration Blood pressure 98.3 degrees 104/minute 18/minute 131/82 Weight 81.4 kg Ryanne Garcia APRN.CNP 07/14/2024 9:14 AM Signed This note was created using [employer]. Subjective Elizabeth Rodrigez is a 79 year old female. Relevant PMH and allergies reviewed: UTIs, diabetes Pt is a 79 year old female who presents today with pressure and frequency and odor x6 months. Pt states she gets up multiple times during the night to go to the bathroom and often times does not make it to the bathroom. Pt states she frequently has UTIs and stays hydrated to keep the symptoms from worsening. She is having pain and burning with urination. Pt states she is having back pain but has a history of arthritis and is not sure if that is the cause of her back pain. Pt denies vaginal redness, vaginal discharge, rash, changes in soaps, changes in detergents, fever, chills, flank pain, nausea, vomiting, blood in urine. Pt is not sexual active. The history is provided by the patient. No preschool teacher's assistant was used. UTI This is a recurrent problem. The current episode started more than 1 week ago. The problem occurs every urination. The problem has not changed since onset.The quality of the pain is described as burning. The pain is mild. There has been no fever. She is Not sexually active. There is No history of pyelonephritis. Associated symptoms include frequency and urgency. Pertinent negatives include no chills, no nausea, no vomiting, no discharge, no hematuria, no hesitancy and no flank pain. She has tried nothing for the symptoms. Her past medical history is significant for recurrent UTIs. Her past medical history does not include kidney stones or urinary stasis. PAST MEDICAL HISTORY Diagnosis Date Allergic rhinitis, cause unspecified Allergic rhinitis Carpal tunnel syndrome Depressive disorder, not elsewhere classified Disorder of bone and cartilage, unspecified Dysmetabolic syndrome X Dyspepsia and other specified disorders of function of stomach Dyspepsia Generalized anxiety disorder Anxiety, Generalized Generalized osteoarthrosis, involving hand Hemorrhage of gastrointestinal tract, unspecified Lichen sclerosus saw Dr. Jarvis Migraine without aura Obstructive sleep apnea (adult) (pediatric) uses C-PAP Other specified cardiac dysrhythmias(427.89) Panic disorder without agoraphobia Pure hypercholesterolemia PAST SURGICAL HISTORY Procedure Laterality Date BIOPSY BREAST OPEN INCISIONAL Bilateral Bx of breast, incisional COLONOSCOPY FLX DX W/COLLJ SPEC WHEN PFRMD 03/24/06 SPLENECTOMY TOTAL SEPARATE PROCEDURE 05/2018 Splenectomy TOTAL ABDOMINAL HYSTERECT W/WO RMVL TUBE OVARY Hysterectomy, FIGUEROA ALLERGIES Epinephrine, Penicillins, Percocet [Oxycodone-Acetaminophe n], and Xylocaine [Lidocaine Hcl (Local Anesth.)] MEDICATIONS predniSONE (DELTASONE) 10 mg tablet Take 40 mg x 3 days, 20 mg x 3 days, 10 mg x 3 days. Take with food, once daily acyclovir (ZOVIRAX) 400 mg tablet Take 1 tablet by mouth two times a day. verapamil 80 mg tablet Take 1 tablet by mouth two times a day. gabapentin (NEURONTIN) 300 mg capsule Take 1 capsule by mouth three times a day. clobetasol (TEMOVATE) 0.05 % cream Apply 1 application to affected area once daily as needed. alendronate (FOSAMAX) 70 mg tablet Take 1 tablet by mouth one time a week. Take with a full glass of water, on an empty stomach; do NOT lie down for 30minutes. PARoxetine (PAXIL) 20 mg tablet Take 2 tablets by mouth every morning AND 0.5 tablets every evening. metFORMIN ER (GLUCOPHAGE XR) 500 mg 24 hr tablet Take 1 tablet by mouth two times a day before meals. or as directed rosuvastatin (CRESTOR) 10 mg tablet Take 1 tablet by mouth once daily. As directed Cholecalciferol, Vitamin D3, (VITAMIN D-3) 50 mcg (2,000 unit) cap Take 1 capsule by mouth once daily. apixaban (ELIQUIS) 5 mg tab(s) Take 1 tablet by mouth two times a day. cyanocobalamin (VITAMIN B-12) 1,000 mcg tab Take 1,000 mcg by mouth once daily. HAIR, SKIN AND NAILS, BIOTIN, ORAL Take 1 capsule by mouth once daily. albuterol HFA (PROVENTIL HFA, VENTOLIN HFA) 90 mcg/actuation inhaler INHALE 2 PUFFS BY MOUTH UP TO 4 TIMES DAILY NEEDED acetaminophen (TYLENOL EX STR ARTHRITIS PAIN ORAL) Take by mouth as needed. meclizine (ANTIVERT) 25 mg tab Take 1 tablet by mouth every 6 hours as needed (dizziness/vertigo). CPAP Initiate CPAP @ 12 cm of water with humidification. Mask (per patient preference) optional chin strap (if indicated) , filters, tubing, humidifier and lifetime supplies. fluticasone (FLONASE) 50 mcg/actuation nasal spray Use 2 Sprays in (more content not included)... Normal [facility] UA DIP, URINE (POC)on 2023 BILIRUBIN UA (POCT) Negative Negative [facility] CLARITY UA (POCT) Clear [facility] COLOR UA (POCT) Yellow [facility] GLUCOSE UA (POCT) Negative Negative mg/dL [facility] Hemoglobin Ql (U) Negative Negative [facility] Interpretation and review of laboratory results Abnormal [facility] KETONE UA (POCT) Negative Negative mg/dL [facility] LEUKOCYTES UA (POCT) Small Abnormal Negative [facility] NITRITE UA (POCT) Negative Negative [facility] PH UA (POCT) 5.5 4.5 - 8.0 [facility] Protein Ql (U) Negative Negative mg/dL [facility] SPECIFIC GRAVITY UA (POCT) 1.015 1.005 - 1.030 [facility] UROBILINOGEN UA (POCT) 0.2 Aletha l E.U./dL [facility] Location:[address], [id number] [place] [address] [facility] Foot min 3 Viewson 4 Foot min 3 Views [facility] [address] [place] [address] Foot min 3 Views MR#: [id number] Acct: [id number] Name: ELIZABETH RODRIGEZ Rep #: [id number] : 1945 F 78 From: Eleazar Harry MD PCP: Dr. Yenifer Gonsalez MD Status: DEP AMB Study: Foot min 3 Views Date of Exam: 06/14/24 Exam# [id number] Ordering Dr: Rosita Restrepo DPDina [id number] STUDY: X-RAY - RIGHT FOOT CLINICAL: Female, 78 years old. Pain. TECHNIQUE: 3 view(s) of the foot. COMPARISON: None. FINDINGS: Osteopenia. Superior and inferior calcaneal spurs. Mild arthrosis of the tibiotalar and subtalar joints. Mild arthrosis of the midfoot. Mild arthrosis of the TMT joints. Moderate arthrosis of the MTP and IP joints with hammertoe deformities. Flexion and laterally angulated deformity of the second digit at the MTP joint. Mild hallux valgus deformity. Normal soft tissues. RAD/Foot min 3 Views IMPRESSION: Osteopenia with calcaneal spurs and osteoarthritic changes as described. Electronically Signed: Eleazar Harry MD at 15:42 EDT , CC: DPDina Restrepo; Dr. Yenifer Gonsalez MD Home Therapy Clinician: Signed [facility] CNOVon 05-19-2024 CN Office Visit (INTMWS ) ELIZABETH RODRIGEZ ([id number]) 1945 F Date Time Provider Department 05/19/24 8:00 AM CHRISTA CABRERA INTMWS During your visit today, we recorded the following information about you: Pulse Respiration Blood pressure 85/minute 16/minute 155/85 Christa Cabrera APRN.ENVIRONMENTAL ATTORNEY 05/19/2024 9:00 AM Signed SUBJECTIVE: Diabetic Foot Exam due on 03/11/2023 Advance Directive Discussion due on 09/27/2023 Covid-19 Vaccine( season) due on 12/30/2023 [facility] Elizabeth Angela Rain is a 78 year old female.Past medical history significant for ACTIVE PROBLEM LIST Disorder of Bone and Cartilage Allergic Rhinitis, Cause Unspecified Generalized Anxiety Disorder Recurrent Major Depressive Disorder, in Partial Remission (Hcc) Pure Hypercholesterolemia Generalized Osteoarthrosis, Involving Hand Other Specified Cardiac Dysrhythmias(427.89) Panic Disorder Without Agoraphobia Migraine Without Aura, Without Mention of Intractable Migraine Without Mention of Status Migrainosus Ascending Aortic Aneurysm (Hcc) Elisha On Cpap Non Morbid Obesity Due to Excess Calories Primary Osteoarthritis of Both Knees Chronic Pain of Left Knee Psvt (Paroxysmal Supraventricular Tachycardia) ([facility]) Lichen Sclerosus Hearing Difficulty of Both Ears Controlled Type 2 Diabetes Mellitus Without Complication, Without Long-Term Current Use of Insulin (Hcc) Chronic Pain of Right Knee Obesity, Class I, Bmi 30-34.9 Compression Fracture of L1 Lumbar Vertebra ([facility]) Cerebrovascular Accident (Cva) ([facility]) Osteopenia Paf (Paroxysmal Atrial Fibrillation) ([facility]) She called the office this morning with report of wrist injury now with pain and swelling. She presents today with report of pulling hard on her freezer handle yesterday. Did not initially hurt but awoke this morning with acute pain, moderately severe in right wrist, most painful in the right radial region. Increased with movement. She has decreased range of motion due to pain. She notes an abnormal sensation in the palm of her hand but no numbness or tingling. No arm pain. Prior history of carpal tunnel surgery right wrist. Notes tried to use brace that she had at home but hurt too much. She is right handed. Notes tylenol and icing has helped the pain. Taking Eliquis so avoiding NSAIDs. Prior intolerance of opiates, made her aggravated. Hemoglobin A1C (%) Date Value 02/28/2024 7.0 06/09/2021 7.1 Review of Systems Constitutional: Negative. Endocrine: Negative. Musculoskeletal: Positive for arthralgias. Objective BP 155/85 Pulse 85 Resp 16 Physical Exam Vitals and nursing note reviewed. HENT: Head: Normocephalic and atraumatic. Right Ear: Hearing normal. Left Ear: Hearing normal. Eyes: Conjunctiva/sclera: Conjunctivae normal. Cardiovascular: Rate and Rhythm: Normal rate. Pulmonary: Effort: Pulmonary effort is normal. Breath sounds: Normal breath sounds. Musculoskeletal: Right wrist: Tenderness present. No crepitus. Decreased range of motion. Normal pulse. Right hand: Tenderness present. Normal range of motion. Normal capillary refill. Normal pulse. Lymphadenopathy: Cervical: No cervical adenopathy. Skin: General: Skin is warm and dry. Neurological: Mental Status: She is alert. ALLERGIES Allergen Reactions Epinephrine Other: See Comments Tachycardia, becomes incoherent Penicillins Rash Percocet [Oxycodone* Vomiting It makes her feel drunk Xylocaine [Lidocain* Other: See Comments tachycardia--Not really sure if had reaction to this or if was the epinephrine acyclovir (ZOVIRAX) 400 mg tablet Take 1 tablet by mouth two times a day. verapamil 80 mg tablet Take 1 tablet by mouth two times a day. gabapentin (NEURONTIN) 300 mg capsule Take 1 capsule by mouth three times a day. clobetasol (TEMOVATE) 0.05 % cream Apply 1 application to affected area once daily as needed. alendronate (FOSAMAX) 70 mg tablet Take 1 tablet by mouth one time a week. Take with a full glass of water, on an empty stomach; do NOT lie down for 30minutes. PARoxetine (PAXIL) 20 mg tablet Take 2 tablets by mouth every morning AND 0.5 tablets every evening. metFORMIN ER (GLUCOPHAGE XR) 500 mg 24 hr tablet Take 1 tablet by mouth two times a day before meals. or as directed rosuvastatin (CRESTOR) 10 mg tablet Take 1 tablet by mouth once daily. As directed Cholecalciferol, Vitamin D3, (VITAMIN D-3) 50 mcg (2,000 unit) cap Take 1 capsule by mouth once daily. apixaban (ELIQUIS) 5 mg tab(s) Take 1 tablet by mouth two times a day. cyanocobalamin (VITAMIN B-12) 1,000 mcg tab Take 1,000 mcg by mouth once daily. HAIR, SKIN AND NAILS, BIOTIN, ORAL Take 1 capsule by mouth once daily. albuterol HFA (PROVENTIL HFA, VENTOLIN HFA) 90 mcg/actuation inhaler INHALE 2 PUFFS BY MOUTH UP TO 4 TIMES DAILY NEEDED acetaminophen (TYLENOL EX STR ARTHRITIS DHEERAJ (more content not included)... Normal [facility] XR WRIST 3V PA/LAT/OBL RTon 05-19-2024 XR WRIST 3V PA/LAT/OBL RT * * *Final Report* * * DATE OF EXAM: May 19 2024 8:53AM WOX 5271 - XR WRIST 3V PA/LAT/OBL RT / PROCEDURE REASON: multiple diagnoses * * * * Physician Interpretation * * * * EXAMINATION: XR WRIST 3V PA/LAT/OBL RT CLINICAL HISTORY: Right wrist pain Technique: XR WRIST 3V PA/LAT/OBL RT -- RIGHT with 3 views on 3 images Comparison: None RESULT: No acute fracture or dislocation. Triscaphe joint space narrowing with subchondral sclerosis. Right first carpometacarpal joint space narrowing with subchondral sclerosis and marginal osteophytes. IMPRESSION: No acute osseous abnormality. Degenerative disease of the right wrist. Home Therapy Clinician: ADAN Transcribe Date/Time: May 19 2024 8:57A Dictated by : URSZULA NOVA MD This examination was interpreted and the report reviewed and electronically signed by: URSZULA NOVA MD on May 19 2024 8:59AM EST [id number] Normal [facility] XR Wrist - right PA and Late ral and Obliqueon 05-19-2024 IMPRESSION: No acute osseous abnormality. Degenerative disease of the right wrist. Home Therapy Clinician: ADAN Transcribe Date/Time: May 19 2024 8:57A Dictated by : URSZULA NOVA MD This examination was interpreted and the report reviewed and electronically signed by: URSZULA NOVA MD on May 19 2024 8:59AM EST DIVISION OF RADIOLOGY * * *Final Report* * * DATE OF EXAM: May 19 2024 8:53AM WOX 5271 - XR WRIST 3V PA/LAT/OBL RT / PROCEDURE REASON: multiple diagnoses * * * * Physician Interpretation * * * * EXAMINATION: XR WRIST 3V PA/LAT/OBL RT CLINICAL HISTORY: Right wrist pain Technique: XR WRIST 3V PA/LAT/OBL RT -- RIGHT with 3 views on 3 images Comparison: None RESULT: No acute fracture or dislocation. Triscaphe joint space narrowing with subchondral sclerosis. Right first carpometacarpal joint space narrowing with subchondral sclerosis and marginal osteophytes. DIVISION OF RADIOLOGY Provider, [facility] - 05/19/2024 * * *Final Report* * * DATE OF EXAM: May 19 2024 8:53AM WOX 5271 - XR WRIST 3V PA/LAT/OBL RT / PROCEDURE REASON: multiple diagnoses * * * * Physician Interpretation * * * * EXAMINATION: XR WRIST 3V PA/LAT/OBL RT CLINICAL HISTORY: Right wrist pain Technique: XR WRIST 3V PA/LAT/OBL RT -- RIGHT with 3 views on 3 images Comparison: None RESULT: No acute fracture or dislocation. Triscaphe joint space narrowing with subchondral sclerosis. Right first carpometacarpal joint space narrowing with subchondral sclerosis and marginal osteophytes. IMPRESSION IMPRESSION: No acute osseous abnormality. Degenerative disease of the right wrist. Home Therapy Clinician: ADAN Transcribe Date/Time: May 19 2024 8:57A Dictated by : URSZULA NOVA MD This examination was interpreted and the report reviewed and electronically signed by: URSZULA NOVA MD on May 19 2024 8:59AM EST [facility] Radiology Study observation (narrative) [facility] XR Wrist - right PA and Late ral and ObliqueOrdered By: Ccf Provider on 05-19-2024 [facility] .Auto Diffon 09-15-2023 Basophil, Absolute 0.1 10 3/mcL Normal 0.0-0.2 [facility] ([place]) Comment on above: Performed By: #### A NSG, BMP, GFR, ANEU, ADIFF, ABOG, CBC, ALB, A1C #### [address] [address] Basophils/100 WBC (Bld) 0.5 % Normal 0.0-2.5 A [facility] ([place]) Comment on above: Performed By: #### A NSG, BMP, GFR, ANEU, ADIFF, ABOG, CBC, ALB, A1C #### [address] [address] Eosinophil, Absolute 0.0 10 3/mcL Normal 0.0-0.4 [facility] ([place]) Comment on above: Performed By: #### A NSG, BMP, GFR, ANEU, ADIFF, ABOG, CBC, ALB, A1C #### [address] [address] Eosinophils/100 WBC (Bld) 0.0 % Normal 0.0-7.0 [facility] ([place]) Comment on above: Performed By: #### A NSG, BMP, GFR, ANEU, ADIFF, ABOG, CBC, ALB, A1C #### [address] [address] Lymphocyte, Absolute 2.6 10 3/mcL Normal 0.8-3.9 [facility] ([place]) Comment on above: Performed By: #### A NSG, BMP, GFR, ANEU, ADIFF, ABOG, CBC, ALB, A1C #### [address] [address] Lymphocytes/100 WBC (Bld) 13.0 % Normal 10.0-50.0 [facility] ([place]) Comment on above: Performed By: #### A NSG, BMP, GFR, ANEU, ADIFF, ABOG, CBC, ALB, A1C #### [address] [address] Monocyte, Absolute 3.0 10 3/mcL High 0.2-1.0 [facility] ([place]) Comment on above: Performed By: #### A NSG, BMP, GFR, ANEU, ADIFF, ABOG, CBC, ALB, A1C #### [address] [address] Monocytes/100 WBC (Bld) 14.7 % High 1.7-13.0 A [facility] ([place]) Comment on above: Performed By: #### A NSG, BMP, GFR, ANEU, ADIFF, ABOG, CBC, ALB, A1C #### [address] [address] Neutrophils/100 WBC (Bld) 71.8 % Normal 37.0-80.0 [facility] ([place]) Comment on above: Performed By: #### A NSG, BMP, GFR, ANEU, ADIFF, ABOG, CBC, ALB, A1C #### [address] [address] .GFRon 09-15-2023 GFR Non- 58 ml/min/1.73sqm Normal [facility] ([place]) Comment on above: Result Comment: GFR Population mean for , Non- Americans Ages 20-29 = 116 mL/min/1.73 sq.m. Ages 30-39 = 107 mL/min/1.73 sq.m. Ages 40-49 = 99 mL/min/1.73 sq.m. Ages 50-59 = 93 mL/min/1.73 sq.m. Ages 60-69 = 85 mL/min/1.73 sq.m. Ages 70+ = 75 mL/min/1.73 sq.m. Chronic Kidney Disease: Less than 60 mL/min/1.73 square meters End Stage Renal Disease: Less than 15 mL/min/1.73 square meters Performed By: #### A NSG, BMP, GFR, ANEU, ADIFF, ABOG, CBC, ALB, A1C #### [address] [address] GFR 70 ml/min/1.73sqm Normal [facility] ([place]) Comment on above: Result Comment: GFR Population mean for , Non- Americans Ages 20-29 = 116 mL/min/1.73 sq.m. Ages 30-39 = 107 mL/min/1.73 sq.m. Ages 40-49 = 99 mL/min/1.73 sq.m. Ages 50-59 = 93 mL/min/1.73 sq.m. Ages 60-69 = 85 mL/min/1.73 sq.m. Ages 70+ = 75 mL/min/1.73 sq.m. Chronic Kidney Disease: Less than 60 mL/min/1.73 square meters End Stage Renal Disease: Less than 15 mL/min/1.73 square meters Performed By: #### A NSG, BMP, GFR, ANEU, ADIFF, ABOG, CBC, ALB, A1C #### [address] [address] .NEUABSon 09-15-2023 Neutrophil, Absolute 14.4 10 3/mcL High 2.9-6.2 A [facility] ([place]) Comment on above: Performed By: #### A NSG, BMP, GFR, ANEU, ADIFF, ABOG, CBC, ALB, A1C #### [address] [address] BMPon 09-15-2023 BUN/Creatinine Ratio 11 ratio Normal 7-27 [facility] ([place]) Comment on above: Performed By: #### A NSG, BMP, GFR, ANEU, ADIFF, ABOG, CBC, ALB, A1C #### [address] [address] Calcium [Mass/Vol] 9.4 mg/dL Normal 8.4-10.2 [facility] ([place]) Comment on above: Performed By: #### A NSG, BMP, GFR, ANEU, ADIFF, ABOG, CBC, ALB, A1C #### [address] [address] Chloride [Moles/Vol] 103 mmol/L Normal 98-107 [facility] ([place]) Comment on above: Performed By: #### A NSG, BMP, GFR, ANEU, ADIFF, ABOG, CBC, ALB, A1C #### [address] [address] CO2 [Moles/Vol] 28 mmol/L Normal 23-31 [facility] ([place]) Comment on above: Performed By: #### A NSG, BMP, GFR, ANEU, ADIFF, ABOG, CBC, ALB, A1C #### [address] [address] Creatinine [Mass/Vol] 0.94 mg/dL Normal 0.55-1.02 [facility] ([place]) Comment on above: Performed By: #### A NSG, BMP, GFR, ANEU, ADIFF, ABOG, CBC, ALB, A1C #### [address] [address] Electrolyte Balance 10.0 mEq/L Normal 4.0-15.0 [facility] ([place]) Comment on above: Performed By: #### A NSG, BMP, GFR, ANEU, ADIFF, ABOG, CBC, ALB, A1C #### [address] [address] Glucose [Mass/Vol] 167 mg/dL High 83-110 [facility] ([place]) Comment on above: Performed By: #### A NSG, BMP, GFR, ANEU, ADIFF, ABOG, CBC, ALB, A1C #### [address] [address] Potassium [Moles/Vol] 5.0 mmol/L Normal 3.5-5.1 [facility] ([place]) Comment on above: Performed By: #### A NSG, BMP, GFR, ANEU, ADIFF, ABOG, CBC, ALB, A1C #### [address] [address] Sodium [Moles/Vol] 141 mmol/L Normal 136-145 [facility] ([place]) Comment on above: Performed By: #### A NSG, BMP, GFR, ANEU, ADIFF, ABOG, CBC, ALB, A1C #### [place] [address] Urea nitrogen [Mass/Vol] 10 mg/dL Normal 7-18 [facility] ([place]) Comment on above: Performed By: #### A NSG, BMP, GFR, ANEU, ADIFF, ABOG, CBC, ALB, A1C #### [place] [address] CBCon 09-15-2023 Erythrocyte distribution width (RBC) [Ratio] 15.0 % High 11.5-14.5 [facility] ([place]) Comment on above: Performed By: #### A NSG, BMP, GFR, ANEU, ADIFF, ABOG, CBC, ALB, A1C #### [place] [address] Hematocrit (Bld) [Volume fraction] 36.3 % Low 37.0-47.0 [facility] ([place]) Comment on above: Performed By: #### A NSG, BMP, GFR, ANEU, ADIFF, ABOG, CBC, ALB, A1C #### [place] [id number] Hgb 11.7 G/dL Low 12.0-16.0 [facility] ([place]) Comment on above: Performed By: #### A NSG, BMP, GFR, ANEU, ADIFF, ABOG, CBC, ALB, A1C #### [place] [address] MCH (RBC) [Entitic mass] 30.5 pg Normal 27.0-31.2 [facility] ([place]) Comment on above: Performed By: #### A NSG, BMP, GFR, ANEU, ADIFF, ABOG, CBC, ALB, A1C #### [place] [id number] MCHC 32.3 G/dL Low 33.0-37.0 [facility] ([place]) Comment on above: Performed By: #### A NSG, BMP, GFR, ANEU, ADIFF, ABOG, CBC, ALB, A1C #### [address] [address] MCV (RBC) [Entitic vol] 94.2 fL High 80.0-94.0 A [facility] ([place]) Comment on above: Performed By: #### A NSG, BMP, GFR, ANEU, ADIFF, ABOG, CBC, ALB, A1C #### [address] [address] Platelet 407 10 3/mcL High 130-400 [facility] ([place]) Comment on above: Performed By: #### A NSG, BMP, GFR, ANEU, ADIFF, ABOG, CBC, ALB, A1C #### [address] [address] Platelet mean volume (Bld) [Entitic vol] 8.7 fL Normal 7.4-10.4 [facility] ([place]) Comment on above: Performed By: #### A NSG, BMP, GFR, ANEU, ADIFF, ABOG, CBC, ALB, A1C #### [address] [address] RBC 3.85 10 6/mcL Low 4.20-5.40 [facility] ([place]) Comment on above: Performed By: #### A NSG, BMP, GFR, ANEU, ADIFF, ABOG, CBC, ALB, A1C #### [address] [address] WBC 20.1 10 3/mcL High 4.6-10.8 [facility] ([place]) Comment on above: Performed By: #### A NSG, BMP, GFR, ANEU, ADIFF, ABOG, CBC, ALB, A1C #### [address] [address] LABORATORYOrdered By: Erika Miller on 09-15-2023 Blood Glucose Testing Reason Routine (09/15/23 12:17 PM) [facility] Work Phone: Glucose [Mass/Vol] 146 mg/dL High 82 - 115 mg/dL [facility] Work Phone: LABORATORYOrdered By: Kirill Solorzano on 09-15-2023 Blood Glucose Testing Reason Routine (09/15/23 8:01 AM) [facility] Work Phone: Glucose [Mass/Vol] 198 mg/dL High 82 - 115 mg/dL [facility] Work Phone: LABORATORYOrdered By: SYSTEM SYSTEM on 09-15-2023 Basophil, Absolute 0.1 103/mcL Normal 0.0 - 0.2 10^3/mcL AO Workflow SS Basophils/100 WBC (Bld) 0.5 % Normal 0.0 - 2.5 % AO Workflow SS Calcium [Mass/Vol] 9.4 mg/dL Normal 8.4 - 10. 2 mg/dL AO ADM SS Chloride [Moles/Vol] 103 mmol/L Normal 98 - 10 7 mmol/L AO ADM SS CO2 [Moles/Vol] 28 mmol/L Normal 23 - 31 mmol/L AO ADM SS Creatinine [Mass/Vol] 0.94 mg/dL Normal 0.55 - 1.02 mg/dL AO ADM SS Electrolyte Balance 10.0 mEq/L Normal 4.0 - 15 .0 mEq/L AO ADM SS Eosinophil, Absolute 0.0 103/mcL Normal 0.0 - 0 .4 10^3/mcL AO Workflow SS Eosinophils/100 WBC (Bld) 0.0 % Normal 0.0 - 7.0 % AO Workflow SS Erythrocyte distribution width (RBC) [Ratio] 15.0 % High 11.5 - 14.5 % AO Workflow SS GFR/1.73 sq M.predicted among blacks MDRD (S/P/Bld) [Vol rate/Area] 70 ml/min/1.73sqm Invalid Interpretation Code AO Chemistry S Comment on above: Interpretive Data: GFR Population mean for , Non- Americans Ages 20-29 = 116 mL/min/1.73 sq.m. Ages 30-39 = 107 mL/min/1.73 sq.m. Ages 40-49 = 99 mL/min/1.73 sq.m. Ages 50-59 = 93 mL/min/1.73 sq.m. Ages 60-69 = 85 mL/min/1.73 sq.m. Ages 70+ = 75 mL/min/1.73 sq.m. Chronic Kidney Disease: Less than 60 mL/min/1.73 square meters End Stage Renal Disease: Less than 15 mL/min/1.73 square meters GFR/1.73 sq M.predicted among non-blacks MDRD (S/P/Bld) [Vol rate/Area] 58 ml/min/1.73sqm Invalid Interpretation Code AO Chemistry S Comment on above: Interpretive Data: GFR Population mean for , Non- Americans Ages 20-29 = 116 mL/min/1.73 sq.m. Ages 30-39 = 107 mL/min/1.73 sq.m. Ages 40-49 = 99 mL/min/1.73 sq.m. Ages 50-59 = 93 mL/min/1.73 sq.m. Ages 60-69 = 85 mL/min/1.73 sq.m. Ages 70+ = 75 mL/min/1.73 sq.m. Chronic Kidney Disease: Less than 60 mL/min/1.73 square meters End Stage Renal Disease: Less than 15 mL/min/1.73 square meters Glucose [Mass/Vol] 167 mg/dL High 83 - 110 mg/dL AO ADM SS Hematocrit (Bld) [Volume fraction] 36.3 % Low 37.0 - 47.0 % AO Workflow SS Hemoglobin (Bld) [Mass/Vol] 11.7 G/dL Low 12.0 - 16.0 G/dL AO Workflow SS Lymphocyte, Absolute 2.6 103/mcL Normal 0.8 - 3 .9 10^3/mcL AO Workflow SS Lymphocytes/100 WBC (Bld) 13.0 % Normal 10.0 - 50.0 % AO Workflow SS MCH (RBC) [Entitic mass] 30.5 pg Normal 27.0 - 31.2 pg AO Workflow SS MCHC 32.3 G/dL Low 33.0 - 37.0 G/dL AO Workflow SS MCV (RBC) [Entitic vol] 94.2 fL High 80.0 - 94.0 fL AO Workflow SS Monocyte, Absolute 3.0 103/mcL High 0.2 - 1.0 10^3/mcL AO Workflow SS Monocytes/100 WBC (Bld) 14.7 % High 1.7 - 13.0 % AO Workflow SS Neutrophil, Absolute 14.4 103/mcL High 2.9 - 6 .2 10^3/mcL AO Workflow SS Neutrophils/100 WBC (Bld) 71.8 % Normal 37.0 - 80.0 % AO Workflow SS Platelet mean volume (Bld) [Entitic vol] 8.7 fL Normal 7.4 - 10.4 fL AO Workflow SS Platelets (Bld) [#/Vol] 407 103/mcL High 130 - 400 10^3/mcL AO Workflow SS Potassium [Moles/Vol] 5.0 mmol/L Normal 3.5 - 5.1 mmol/L AO ADM SS RBC (Bld) [#/Vol] 3.85 106/mcL Low 4.20 - 5.4 0 10^6/mcL AO Workflow SS Sodium [Moles/Vol] 141 mmol/L Normal 136 - 145 mmol/L AO ADM SS Urea nitrogen [Mass/Vol] 10 mg/dL Normal 7 - 18 mg/dL AO ADM SS Urea nitrogen/Creatinine [Mass ratio] 11 ratio Normal 7 - 27 ratio AO ADM SS WBC (Bld) [#/Vol] 20.1 103/mcL High 4.6 - 10.8 10^3/mcL AO Workflow SS Gel ABOon 09-14-2023 ABO/Rh Interp Positive Invalid Interpretation Code [facility] ([place]) Comment on above: Performed By: #### A NSG, BMP, GFR, ANEU, ADIFF, ABOG, CBC, ALB, A1C #### [place] [address] [place], [place] [address] Gel ABSon 09-14-2023 Antibody Screen Gel Negative Normal [facility] ([place]) Comment on above: Performed By: #### A NSG, BMP, GFR, ANEU, ADIFF, ABOG, CBC, ALB, A1C #### [place] [address] [place], [place] [address] LABORATORYOrdered By: Zully garcia on 09-14-2023 Glucose [Mass/Vol] 148 mg/dL High 82 - 115 mg/dL [facility] Work Phone: LABORATORYOrdered By: Estella Vergara on 09-14-2023 ABO/Rh Interp Positive Invalid Interpretation Code AO BB SS Antibody Screen Gel Negative ABSC (09/14/23 7:34 AM) Normal AO BB SS XR KNEE 1 OR 2 VIEWS LEFTon 09-14-2023 XR KNEE 1 OR 2 VIEWS LEFT ORIGINAL EXAMINATION: POSTOPERATIVE KNEE TECHNIQUE: 2 views of the left knee were obtained. COMPARISON: CT knee 08/18/2023 HISTORY: ORDERING SYSTEM PROVIDED HISTORY: Reason for Exam: Status Post Arthroplasty FINDINGS: There is normal mineralization. No acute fracture or dislocation is seen. The patient is status post knee replacement with appropriate positioning of the prosthesis. There are postsurgical changes with a small joint effusion and emphysema. IMPRESSION: Status post left knee replacement. Interpreted by: Howie Perla MD Preliminary Report By: Howie Perla MD Electronically signed By Howie Perla MD Dictated Date: 09/14/2023 10:17:56 AM Prelim Date: 09/14/2023 10:18:49 AM Sign Date: 09/14/2023 10:18:49 AM Ordering Provider: YUNIOR Salazar [facility] ([place]) .Auto Diffon 08-18-2023 Basophil, Absolute 0.0 10 3/mcL Normal 0.0-0.2 [facility] ([place]) Comment on above: Performed By: #### A NSG, BMP, GFR, ANEU, ADIFF, ABOG, CBC, ALB, A1C #### [address] [address] Basophils/100 WBC (Bld) 0.2 % Normal 0.0-2.5 A [facility] ([place]) Comment on above: Performed By: #### A NSG, BMP, GFR, ANEU, ADIFF, ABOG, CBC, ALB, A1C #### [address] [address] Eosinophil, Absolute 0.1 10 3/mcL Normal 0.0-0.4 [facility] ([place]) Comment on above: Performed By: #### A NSG, BMP, GFR, ANEU, ADIFF, ABOG, CBC, ALB, A1C #### [address] [address] Eosinophils/100 WBC (Bld) 1.1 % Normal 0.0-7.0 [facility] ([place]) Comment on above: Performed By: #### A NSG, BMP, GFR, ANEU, ADIFF, ABOG, CBC, ALB, A1C #### [address] [address] Lymphocyte, Absolute 2.6 10 3/mcL Normal 0.8-3.9 [facility] ([place]) Comment on above: Performed By: #### A NSG, BMP, GFR, ANEU, ADIFF, ABOG, CBC, ALB, A1C #### [address] [address] Lymphocytes/100 WBC (Bld) 27.2 % Normal 10.0-50.0 [facility] ([place]) Comment on above: Performed By: #### A NSG, BMP, GFR, ANEU, ADIFF, ABOG, CBC, ALB, A1C #### [address] [address] Monocyte, Absolute 1.5 10 3/mcL High 0.2-1.0 [facility] ([place]) Comment on above: Performed By: #### A NSG, BMP, GFR, ANEU, ADIFF, ABOG, CBC, ALB, A1C #### [address] [address] Monocytes/100 WBC (Bld) 15.5 % High 1.7-13.0 A [facility] ([place]) Comment on above: Performed By: #### A NSG, BMP, GFR, ANEU, ADIFF, ABOG, CBC, ALB, A1C #### [address] [address] Neutrophils/100 WBC (Bld) 56.0 % Normal 37.0-80.0 [facility] ([place]) Comment on above: Performed By: #### A NSG, BMP, GFR, ANEU, ADIFF, ABOG, CBC, ALB, A1C #### [address] [address] .GFRon 08-18-2023 GFR Non- 69 ml/min/1.73sqm Normal [facility] ([place]) Comment on above: Result Comment: GFR Population mean for , Non- Americans Ages 20-29 = 116 mL/min/1.73 sq.m. Ages 30-39 = 107 mL/min/1.73 sq.m. Ages 40-49 = 99 mL/min/1.73 sq.m. Ages 50-59 = 93 mL/min/1.73 sq.m. Ages 60-69 = 85 mL/min/1.73 sq.m. Ages 70+ = 75 mL/min/1.73 sq.m. Chronic Kidney Disease: Less than 60 mL/min/1.73 square meters End Stage Renal Disease: Less than 15 mL/min/1.73 square meters Performed By: #### A NSG, BMP, GFR, ANEU, ADIFF, ABOG, CBC, ALB, A1C #### [address] [address] GFR 83 ml/min/1.73sqm Normal [facility] ([place]) Comment on above: Result Comment: GFR Population mean for , Non- Americans Ages 20-29 = 116 mL/min/1.73 sq.m. Ages 30-39 = 107 mL/min/1.73 sq.m. Ages 40-49 = 99 mL/min/1.73 sq.m. Ages 50-59 = 93 mL/min/1.73 sq.m. Ages 60-69 = 85 mL/min/1.73 sq.m. Ages 70+ = 75 mL/min/1.73 sq.m. Chronic Kidney Disease: Less than 60 mL/min/1.73 square meters End Stage Renal Disease: Less than 15 mL/min/1.73 square meters Performed By: #### A NSG, BMP, GFR, ANEU, ADIFF, ABOG, CBC, ALB, A1C #### [address] [address] .NEUABSon 08-18-2023 Neutrophil, Absolute 5.3 10 3/mcL Normal 2.9-6.2 [facility] ([place]) Comment on above: Performed By: #### A NSG, BMP, GFR, ANEU, ADIFF, ABOG, CBC, ALB, A1C #### [address] [address] A1Con 08-18-2023 HbA1c (Bld) [Mass fraction] 6.8 % High 4.3-6.4 [facility] ([place]) Comment on above: Performed By: #### A NSG, BMP, GFR, ANEU, ADIFF, ABOG, CBC, ALB, A1C #### [address] [address] ALBon 08-18-2023 Albumin Level 3.3 G/dL Low 3.4-4.8 [facility] ([place]) Comment on above: Performed By: #### A NSG, BMP, GFR, ANEU, ADIFF, ABOG, CBC, ALB, A1C #### [address] [address] BMPon 08-18-2023 BUN/Creatinine Ratio 15 ratio Normal 7-27 [facility] ([place]) Comment on above: Performed By: #### A NSG, BMP, GFR, ANEU, ADIFF, ABOG, CBC, ALB, A1C #### [address] [address] Calcium [Mass/Vol] 9.1 mg/dL Normal 8.4-10.2 [facility] ([place]) Comment on above: Performed By: #### A NSG, BMP, GFR, ANEU, ADIFF, ABOG, CBC, ALB, A1C #### [address] [address] Chloride [Moles/Vol] 104 mmol/L Normal 98-107 [facility] ([place]) Comment on above: Performed By: #### A NSG, BMP, GFR, ANEU, ADIFF, ABOG, CBC, ALB, A1C #### [address] [address] CO2 [Moles/Vol] 25 mmol/L Normal 23-31 [facility] ([place]) Comment on above: Performed By: #### A NSG, BMP, GFR, ANEU, ADIFF, ABOG, CBC, ALB, A1C #### [address] [address] Creatinine [Mass/Vol] 0.81 mg/dL Normal 0.55-1.02 [facility] ([place]) Comment on above: Performed By: #### A NSG, BMP, GFR, ANEU, ADIFF, ABOG, CBC, ALB, A1C #### [address] [address] Electrolyte Balance 10.0 mEq/L Normal 4.0-15.0 [facility] ([place]) Comment on above: Performed By: #### A NSG, BMP, GFR, ANEU, ADIFF, ABOG, CBC, ALB, A1C #### [address] [address] Glucose [Mass/Vol] 114 mg/dL High 83-110 [facility] ([place]) Comment on above: Performed By: #### A NSG, BMP, GFR, ANEU, ADIFF, ABOG, CBC, ALB, A1C #### [address] [address] Potassium [Moles/Vol] 4.4 mmol/L Normal 3.5-5.1 [facility] ([place]) Comment on above: Performed By: #### A NSG, BMP, GFR, ANEU, ADIFF, ABOG, CBC, ALB, A1C #### [address] [address] Sodium [Moles/Vol] 139 mmol/L Normal 136-145 [facility] ([place]) Comment on above: Performed By: #### A NSG, BMP, GFR, ANEU, ADIFF, ABOG, CBC, ALB, A1C #### [address] [address] Urea nitrogen [Mass/Vol] 12 mg/dL Normal 7-18 [facility] ([place]) Comment on above: Performed By: #### A NSG, BMP, GFR, ANEU, ADIFF, ABOG, CBC, ALB, A1C #### [address] [address] CBCon 08-18-2023 Erythrocyte distribution width (RBC) [Ratio] 15.8 % High 11.5-14.5 [facility] ([place]) Comment on above: Order Comment: Pre-A dmission Testing Performed By: #### A NSG, BMP, GFR, ANEU, ADIFF, ABOG, CBC, ALB, A1C #### [address] [address] Hematocrit (Bld) [Volume fraction] 40.1 % Normal 37.0-47.0 [facility] ([place]) Comment on above: Order Comment: Pre-A dmission Testing Performed By: #### A NSG, BMP, GFR, ANEU, ADIFF, ABOG, CBC, ALB, A1C #### [address] [address] Hgb 13.2 G/dL Normal 12.0-16.0 [facility] ([place]) Comment on above: Order Comment: Pre-A dmission Testing Performed By: #### A NSG, BMP, GFR, ANEU, ADIFF, ABOG, CBC, ALB, A1C #### [address] [address] MCH (RBC) [Entitic mass] 31.2 pg Normal 27.0-31.2 [facility] ([place]) Comment on above: Order Comment: Pre-A dmission Testing Performed By: #### A NSG, BMP, GFR, ANEU, ADIFF, ABOG, CBC, ALB, A1C #### [address] [address] MCHC 33.0 G/dL Normal 33.0-37.0 [facility] ([place]) Comment on above: Order Comment: Pre-A dmission Testing Performed By: #### A NSG, BMP, GFR, ANEU, ADIFF, ABOG, CBC, ALB, A1C #### [address] [address] MCV (RBC) [Entitic vol] 94.8 fL High 80.0-94.0 A [facility] ([place]) Comment on above: Order Comment: Pre-A dmission Testing Performed By: #### A NSG, BMP, GFR, ANEU, ADIFF, ABOG, CBC, ALB, A1C #### [address] [address] Platelet 399 10 3/mcL Normal 130-400 [facility] ([place]) Comment on above: Order Comment: Pre-A dmission Testing Performed By: #### A NSG, BMP, GFR, ANEU, ADIFF, ABOG, CBC, ALB, A1C #### [address] [address] Platelet mean volume (Bld) [Entitic vol] 8.7 fL Normal 7.4-10.4 [facility] ([place]) Comment on above: Order Comment: Pre-A dmission Testing Performed By: #### A NSG, BMP, GFR, ANEU, ADIFF, ABOG, CBC, ALB, A1C #### [address] [address] RBC 4.23 10 6/mcL Normal 4.20-5.40 [facility] ([place]) Comment on above: Order Comment: Pre-A dmission Testing Performed By: #### A NSG, BMP, GFR, ANEU, ADIFF, ABOG, CBC, ALB, A1C #### [address] [address] WBC 9.5 10 3/mcL Normal 4.6-10.8 [facility] ([place]) Comment on above: Order Comment: Pre-A dmission Testing Performed By: #### A NSG, BMP, GFR, ANEU, ADIFF, ABOG, CBC, ALB, A1C #### [address] [address] [address] KNEE W/O CONTRAST LEFTon 08-18-2023 CT KNEE W/O CONTRAST LEFT ORIGINAL EXAMINATION: CT OF THE LEFT KNEE WITHOUT QOEUECXS36/22/2023 11:40 am TECHNIQUE: CT of the left knee was performed without the administration of intravenous contrast. Multiplanar reformatted images are provided for review. Automated exposure control, iterative reconstruction, and/or weight based adjustment of the mA/kV was utilized to reduce the radiation dose to as low as reasonably achievable. COMPARISON: None HISTORY: ORDERING SYSTEM PROVIDED HISTORY: Reason for Exam: Varus deformity, LEFT KNEE. Chronic left knee pain. FINDINGS: No acute fracture or dislocation. There is moderate medial and mild lateral tibiofemoral joint space narrowing. There is mild patellofemoral narrowing. Subchondral cystic changes are seen at the femoral condyle, tibial plateau, and posterior articular surface of the patella. Marginal osteophyte formation around the knee is noted. Mild degenerative changes are seen in the left hip, pubic symphysis, and the left ankle. Degenerative changes are also present in the partially visualized portions of the right knee. Small fluid is seen within the suprapatellar bursa and patellofemoral joint. No acute soft tissue abnormality. IMPRESSION: 1. No acute osseous abnormality. 2. Tricompartmental degenerative changes; moderate in severity at the medial tibiofemoral joint space. I have personally reviewed the images of this examination and agree with the resident's findings and interpretation. Interpreted by: Martin Nunez MD Preliminary Report By: Lupillo Mcleod Electronically signed By Martin Nunez MD Dictated Date: 08/18/2023 11:41:43 AM Prelim Date: 08/18/2023 1:17:24 PM Sign Date: 08/18/2023 1:17:24 PM Ordering Provider: YUNIOR ELAINE Normal [facility]) Gel ABOon 08-18-2023 ABO/Rh Interp Positive Invalid Interpretation Code [facility]) Comment on above: Performed By: #### A NSG, BMP, GFR, ANEU, ADIFF, ABOG, CBC, ALB, A1C #### [address] [address] Gel ABSon 08-18-2023 Antibody Screen Gel Negative Normal [facility]) Comment on above: Performed By: #### A NSG, BMP, GFR, ANEU, ADIFF, ABOG, CBC, ALB, A1C #### [address] [address] LABORATORYOrdered By: Albania Hauser on 08-18-2023 ABO/Rh Interp Positive Invalid Interpretation Code AO BB SS Antibody Screen Gel Negative ABSC (08/18/23 11:02 AM) Normal AO BB SS LABORATORYOrdered By: SYSTEM SYSTEM on 08-18-2023 Albumin BCP dye [Mass/Vol] 3.3 G/dL Low 3.4 - 4.8 G/dL AO ADM SS Basophil, Absolute 0.0 103/mcL Normal 0.0 - 0.2 10^3/mcL AO Workflow SS Basophils/100 WBC (Bld) 0.2 % Normal 0.0 - 2.5 % AO Workflow SS Calcium [Mass/Vol] 9.1 mg/dL Normal 8.4 - 10. 2 mg/dL AO ADM SS Chloride [Moles/Vol] 104 mmol/L Normal 98 - 10 7 mmol/L AO ADM SS CO2 [Moles/Vol] 25 mmol/L Normal 23 - 31 mmol/L AO ADM SS Creatinine [Mass/Vol] 0.81 mg/dL Normal 0.55 - 1.02 mg/dL AO ADM SS Electrolyte Balance 10.0 mEq/L Normal 4.0 - 15 .0 mEq/L AO ADM SS Eosinophil, Absolute 0.1 103/mcL Normal 0.0 - 0 .4 10^3/mcL AO Workflow SS Eosinophils/100 WBC (Bld) 1.1 % Normal 0.0 - 7.0 % AO Workflow SS Erythrocyte distribution width (RBC) [Ratio] 15.8 % High 11.5 - 14.5 % AO Workflow SS GFR/1.73 sq M.predicted among blacks MDRD (S/P/Bld) [Vol rate/Area] 83 ml/min/1.73sqm Invalid Interpretation Code AO Chemistry S Comment on above: Interpretive Data: GFR Population mean for , Non- Americans Ages 20-29 = 116 mL/min/1.73 sq.m. Ages 30-39 = 107 mL/min/1.73 sq.m. Ages 40-49 = 99 mL/min/1.73 sq.m. Ages 50-59 = 93 mL/min/1.73 sq.m. Ages 60-69 = 85 mL/min/1.73 sq.m. Ages 70+ = 75 mL/min/1.73 sq.m. Chronic Kidney Disease: Less than 60 mL/min/1.73 square meters End Stage Renal Disease: Less than 15 mL/min/1.73 square meters GFR/1.73 sq M.predicted among non-blacks MDRD (S/P/Bld) [Vol rate/Area] 69 ml/min/1.73sqm Invalid Interpretation Code AO Chemistry S Comment on above: Interpretive Data: GFR Population mean for , Non- Americans Ages 20-29 = 116 mL/min/1.73 sq.m. Ages 30-39 = 107 mL/min/1.73 sq.m. Ages 40-49 = 99 mL/min/1.73 sq.m. Ages 50-59 = 93 mL/min/1.73 sq.m. Ages 60-69 = 85 mL/min/1.73 sq.m. Ages 70+ = 75 mL/min/1.73 sq.m. Chronic Kidney Disease: Less than 60 mL/min/1.73 square meters End Stage Renal Disease: Less than 15 mL/min/1.73 square meters Glucose [Mass/Vol] 114 mg/dL High 83 - 110 mg/dL AO ADM SS HbA1c (Bld) [Mass fraction] 6.8 % High 4.3 - 6.4 % AO ADM SS Hematocrit (Bld) [Volume fraction] 40.1 % Normal 37.0 - 47.0 % AO Workflow SS Hemoglobin (Bld) [Mass/Vol] 13.2 G/dL Normal 12.0 - 16.0 G/dL AO Workflow SS Lymphocyte, Absolute 2.6 103/mcL Normal 0.8 - 3 .9 10^3/mcL AO Workflow SS Lymphocytes/100 WBC (Bld) 27.2 % Normal 10.0 - 50.0 % AO Workflow SS MCH (RBC) [Entitic mass] 31.2 pg Normal 27.0 - 31.2 pg AO Workflow SS MCHC 33.0 G/dL Normal 33.0 - 37.0 G/dL AO Workflow SS MCV (RBC) [Entitic vol] 94.8 fL High 80.0 - 94.0 fL AO Workflow SS Monocyte, Absolute 1.5 103/mcL High 0.2 - 1.0 10^3/mcL AO Workflow SS Monocytes/100 WBC (Bld) 15.5 % High 1.7 - 13.0 % AO Workflow SS Neutrophil, Absolute 5.3 103/mcL Normal 2.9 - 6 .2 10^3/mcL AO Workflow SS Neutrophils/100 WBC (Bld) 56.0 % Normal 37.0 - 80.0 % AO Workflow SS Platelet mean volume (Bld) [Entitic vol] 8.7 fL Normal 7.4 - 10.4 fL AO Workflow SS Platelets (Bld) [#/Vol] 399 103/mcL Normal 130 - 400 10^3/mcL AO Workflow SS Potassium [Moles/Vol] 4.4 mmol/L Normal 3.5 - 5.1 mmol/L AO ADM SS RBC (Bld) [#/Vol] 4.23 106/mcL Normal 4.20 - 5.4 0 10^6/mcL AO Workflow SS Sodium [Moles/Vol] 139 mmol/L Normal 136 - 145 mmol/L AO ADM SS Urea nitrogen [Mass/Vol] 12 mg/dL Normal 7 - 18 mg/dL AO ADM SS Urea nitrogen/Creatinine [Mass ratio] 15 ratio Normal 7 - 27 ratio AO ADM SS WBC (Bld) [#/Vol] 9.5 103/mcL Normal 4.6 - 10.8 10^3/mcL AO Workflow SS LABORATORYOrdered By: Nadia De Leon on 08-18-2023 MRSA DNA BROOKS+probe Ql (Unsp spec) Not Detected 1 (08/18/23 11:02 AM) Normal Not Detected Auto Viro/Sero SS Comment on above: Result Comment: [place] [id number] MRSA PCR Int MRSA DNA not detecte d by Real-Time Polymerase Chain Reaction (PCR). A negative result may be due to intermittent colonization. Colonization may vary depending on patient treatment, patient status, or exposure to high-risk environments.As with all PCR based in vitro diagnostic tests, extremely low levels of target below the limit of detection of the assay may be detected, but results may not be reproducible. Invalid Interpretation Code Auto Viro/Sero SS MRSAPCRon 08-18-2023 MRSA (PCR) Not detected Normal Not Detected [facility] ([place]) Comment on above: Result Comment: [place] [id number] Performed By: #### A NSG, BMP, GFR, ANEU, ADIFF, ABOG, CBC, ALB, A1C #### [address] [address] MRSA PCR Int Normal [facility]) Comment on above: Result Comment: MRSA DNA not detected by Real-Time Polymerase Chain Reaction (PCR). A negative result may be due to intermittent colonization. Colonization may vary depending on patient treatment, patient status, or exposure to high-risk environments. As with all PCR based in vitro diagnostic tests, extremely low levels of target below the limit of detection of the assay may be detected, but results may not be reproducible. See Below Performed By: #### A NSG, BMP, GFR, ANEU, ADIFF, ABOG, CBC, ALB, A1C #### [id number] [place], [place] [address] Basophil percentageOrdered B y: Eleanor Castillo on 07-06-2023 Basophil percentage < 0.9 mg/dL 0.55-1.02 [facility] No Panel InformationOrdered By: Eleanor Castillo on 07-06-2023 Bedside Estimated GFR (eGFR) > 60.0000 mL/min >60 [facility] XR KNEE GENERAL 4V AP BOTH/P A BOTH/LAT/MERC BILATERALon 01-08-2023 [facility] XR Shoulder - left 3 Viewson 01-04-2023 IMPRESSION: Mild acromioclavicular joint degenerative changes. Home Therapy Clinician: ADAN Transcribe Date/Time: Jan 04 2023 2:34P Dictated by : PRIMO ACE MD This examination was interpreted and the report reviewed and electronically signed by: PRIMO ACE MD on Jan 04 2023 2:35PM [facility] DIVISION OF RADIOLOGY * * *Final Report* * * DATE OF EXAM: Jan 02 2023 12:01PM WOX 5252 - XR SHLDR >/=3V AP/ALIE AP/OTHR LT / PROCEDURE REASON: multiple diagnoses * * * * Physician Interpretation * * * * TITLE: XR SHLDR >/=3V AP/ALIE AP/OTHR LT CLINICAL INDICATION: Chronic pain TECHNIQUE: 4 view radiographic study of the left shoulder COMPARISON: None FINDINGS: No acute fracture or dislocation identified. Mild hypertrophic change about the acromioclavicular joint. DIVISION OF RADIOLOGY Provider, [facility] - 01/04/2023 * * *Final Report* * * DATE OF EXAM: Jan 02 2023 12:01PM WOX 5252 - XR SHLDR >/=3V AP/ALIE AP/OTHR LT / PROCEDURE REASON: multiple diagnoses * * * * Physician Interpretation * * * * TITLE: XR SHLDR >/=3V AP/ALIE AP/OTHR LT CLINICAL INDICATION: Chronic pain TECHNIQUE: 4 view radiographic study of the left shoulder COMPARISON: None FINDINGS: No acute fracture or dislocation identified. Mild hypertrophic change about the acromioclavicular joint. IMPRESSION IMPRESSION: Mild acromioclavicular joint degenerative changes. Home Therapy Clinician: ADAN Transcribe Date/Time: Jan 04 2023 2:34P Dictated by : PRIMO ACE MD This examination was interpreted and the report reviewed and electronically signed by: PRIMO ACE MD on Jan 04 2023 2:35PM EST [facility] XR Shoulder - left 3 ViewsOr dered By: [facility] Provider on 01-04-2023 [facility] XR Shoulder - right 3 Viewso n 01-04-2023 IMPRESSION: Unremarkable radiograph Home Therapy Clinician: [facility] Transcribe Date/Time: Jan 04 2023 4:35P Dictated by : ERVIN ABDUL MD This examination was interpreted and the report reviewed and electronically signed by: ERVIN ABDUL MD on Jan 04 2023 4:35PM EST DIVISION OF RADIOLOGY * * *Final Report* * * DATE OF EXAM: Jan 02 2023 12:01PM WOX 5253 - XR SHLDR >/=3V AP/ALIE AP/OTHR RT / PROCEDURE REASON: multiple diagnoses * * * * Physician Interpretation * * * * Right shoulder HISTORY: Shoulder pain FINDINGS: Three views were performed. No evidence of acute fracture or dislocation. Glenohumeral joint space: maintained Acromio-humeral interval: within normal limits. No evidence of a subacromial spur. Acromio-clavicular joint: Within normal limits. DIVISION OF RADIOLOGY Provider, [facility] - 01/04/2023 * * *Final Report* * * DATE OF EXAM: Jan 02 2023 12:01PM WOX 5253 - XR SHLDR >/=3V AP/ALIE AP/OTHR RT / PROCEDURE REASON: multiple diagnoses * * * * Physician Interpretation * * * * Right shoulder HISTORY: Shoulder pain FINDINGS: Three views were performed. No evidence of acute fracture or dislocation. Glenohumeral joint space: maintained Acromio-humeral interval: within normal limits. No evidence of a subacromial spur. Acromio-clavicular joint: Within normal limits. IMPRESSION IMPRESSION: Unremarkable radiograph Home Therapy Clinician: [facility] Transcribe Date/Time: Jan 04 2023 4:35P Dictated by : ERVIN ABDUL MD This examination was interpreted and the report reviewed and electronically signed by: ERVIN ABDUL MD on Jan 04 2023 4:35PM EST [facility] No Panel Informationon 01-02 Radiology Study observation (narrative) [facility] Glucose Glucometer (BldC) [M ass/Vol]Ordered By: Dr. Roth on 12-19-2022 Glucose [Mass/Vol] 110 mg/dL 74-106 [facility] Comment on above: MANAGEMENT OF PATIEN T CARE PER NURSING PROTOCOL Absolute lymphocyte countOrd ered By: Dr. Brooks on 12-17-2022 Lymphocytes Auto (Unsp spec) [#/Vol] 3.74 10*3/uL 0.83-4.51 [facility] Basophil percentageOrdered B y: Dr. Brooks on 12-17-2022 Basophils/100 WBC (Bld) 0.2 % 0-1 [facility] Bilirubin [Mass/Vol] 0.30 mg/dL 0.20-1.00 [facility] Comment on above: For patients on eltr ombopag therapy, use of Dimension [place] TBIL is not recommended. Chloride [Moles/Vol] 108 mmol/L 98-107 [facility] Cholesterol [Mass/Vol] 133 mg/dL <200 [facility] Comment on above: <200 mg/dL Desirable 200-240 mg/dL Borderline >240 mg/dL High Risk Eosinophils/100 WBC (Bld) 3.0 % 0-5 [facility] Glucose [Mass/Vol] 106 mg/dL 74-106 [facility] Comment on above: Fasting Glucose resu lt from 100 to 125 mg/dL suggests IMPAIRED HOMEOSTASIS per A.D.A. criteria. Neutrophils (Bld) [#/Vol] 4.2 10*3/uL 2.0-7.7 [facility] Neutrophils/100 WBC (Bld) 43.8 % 47-70 [facility] Potassium [Moles/Vol] 4.4 mmol/L 3.5-5.1 [facility] Comment on above: Moderate Hemolysis, Result may be falsely increased. Protein [Mass/Vol] 6.5 g/dL 6.4-8.2 [facility] Sodium [Moles/Vol] 142 mmol/L 136-145 [facility] Triglyceride [Mass/Vol] 172 mg/dL <199 [facility] Comment on above: The drugs N-Acetylcy steine and Metamizole may falsely depress this assay.Serum Triglycerides Reference Interval Normal <150 mg/dL Borderline high 150 - 199 mg/dL High 200 - 499 mg/dL Very High > or = 500 mg/dL WBC (Bld) [#/Vol] 9.7 10*3/uL 4.4-11.0 [facility] Blood erythrocytes count (nu mber/volume)Ordered By: Dr. Brooks on 12-17-2022 RBC (Bld) [#/Vol] 4.38 10*6/uL 4.2-5.4 [facility] Blood hemoglobin measurement (mass/volume)Ordered By: Dr. Brooks on 12-17-2022 Hemoglobin (Bld) [Mass/Vol] 13.2 g/dL 12.0-15.0 [facility] Blood lymphocytes/100 leukoc ytesOrdered By: Dr. Brooks on 12-17-2022 Lymphocytes/100 WBC (Bld) 38.8 % 19-41 [facility] Blood manual differential co mment interpretation (narrative result)Ordered By: Dr. Brooks on 12-17-2022 Manual differential comment Boy (Bld) [Interp] SCANNED [facility] Blood monocytes/100 leukocyt esOrdered By: Dr. Brooks on 12-17-2022 Monocytes/100 WBC (Bld) 14.0 % 0-10 [facility] Blood platelet adequacy dete ction by light microscopyOrdered By: Dr. Brooks on 12-17-2022 Platelets LM Ql (Bld) ADEQUATE ADEQ [facility] Blood platelet mean volumeOr dered By: Dr. Brooks on 12-17-2022 Platelet mean volume (Bld) [Entitic vol] 11.3 fL 6.2-12.0 [facility] Determination of erythrocyte mean corpuscular volume (MCV)Ordered By: Dr. Brooks on 12-17-2022 MCV (RBC) [Entitic vol] 94.5 fL 81-99 [facility] Hematocrit Auto (Bld) [Volum e fraction]Ordered By: Dr. Brooks on 12-17-2022 Hematocrit (Bld) [Volume fraction] 41.4 % 37-47 [facility] Laboratory - Chemistry and C hemistry - challengeOrdered By: Dr. Brooks on 12-17-2022 ALP [Catalytic activity/Vol] 69 U/L 45-117 [facility] ALT [Catalytic activity/Vol] 25 U/L 13-56 [facility] CO2 [Moles/Vol] 26.0 mmol/L 21.0-32.0 [facility] Globulin (S) [Mass/Vol] 3.5 g/dL 2.2-4.2 [facility] Urea nitrogen/Creatinine [Mass ratio] 16.0 mg/mg 10-20 [facility] Laboratory - Hematology and Cell countsOrdered By: Dr. Brooks on 12-17-2022 Erythrocyte distribution width (RBC) [Entitic vol] 53.9 fL 35.1-43.9 [facility] Erythrocyte distribution width (RBC) [Ratio] 15.7 % 11.6-14.6 [facility] Immature granulocytes/100 WBC (Bld) 0.200 % 0.0-0.9 [facility] Comment on above: IG% - Immature Granu locytes (promyelocytes, myelocytes and metamyelocytes) > 1% indicates that a LEFT SHIFT is Present. MCH (RBC) [Entitic mass] 30.1 pg 27.0-32.0 [facility] Nucleated RBC/100 WBC (Bld) [Ratio] 0 % 0-5 [facility] MCHC Auto (RBC) [Mass/Vol]Or dered By: Dr. Brooks on 12-17-2022 MCHC (RBC) [Mass/Vol] 31.9 g/dL 32-36 [facility] No Panel InformationOrdered By: Dr. Brooks on 12-17-2022 Estimated Creatinine Clearance Calc 43.10 ml/min [facility] Estimated GFR (MDRD) Amer 88 mL/min >60 [facility] Comment on above: GFR Calc Estimated GFR (MDRD) Non-Af Amer 73 mL/min >60 [facility] Comment on above: Non- GFR Calc Thyroid Stimulating Hormone (TSH) 2.52 uIU/mL 0.358-3.74 [facility] Platelets bldOrdered By: Dr. Brooks on 12-17-2022 Platelets (Bld) [#/Vol] 235 10*3/uL 150-450 [facility] Serum or plasma albumin maribel urement (mass/volume)Ordered By: Dr. Brooks on 12-17-2022 Albumin [Mass/Vol] 3.0 g/dL 3.2-5.0 [facility] Serum or plasma albumin/glob ulin mass ratioOrdered By: Dr. Brooks on 12-17-2022 Albumin/Globulin [Mass ratio] 0.9 {ratio} 0.9-2.4 [facility] Serum or plasma calcium maribel urement (mass/volume)Ordered By: Dr. Brooks on 12-17-2022 Calcium [Mass/Vol] 8.4 mg/dL 8.5-10.1 [facility] Serum or plasma cholesterol in HDL measurement (mass/volume)Ordered By: Dr. Brooks on 12-17-2022 Cholesterol in HDL [Mass/Vol] 39 mg/dL >40 [facility] Comment on above: The drugs N-Acetylcy steine and Metamizole may falsely depress this assay. Reference Range HDL <40 mg/dL Low HDL Cholesterol HDL >or= 60 mg/dL High HDL Cholesterol Serum or plasma cholesterol in VLDL measurement (mass/volume)Ordered By: Dr. Brooks on 12-17-2022 Cholesterol in VLDL [Mass/Vol] 34 mg/dL 5-40 [facility] Serum or plasma creatinine m easurement (mass/volume)Ordered By: Dr. Brooks on 12-17-2022 Creatinine [Mass/Vol] 0.81 mg/dL 0.55-1.02 [facility] Comment on above: The validity of the calculated GFR & GFRAA in patients over 70 years has not been determined. Clinical correlation is essential. Serum or plasma low density lipoprotein (LDL) cholesterol measurement (mass/volume)Ordered By: Dr. Brooks on 12-17-2022 Cholesterol in LDL [Mass/Vol] 60 mg/dL 0-130 [facility] Serum or plasma urea nitroge n measurement (mass/volume)Ordered By: Dr. Brooks on 12-17-2022 Urea nitrogen [Mass/Vol] 13 mg/dL 7-18 [facility] Thin prep Papanicolaou smear with manual screeningOrdered By: Dr. Brooks on 12-17-2022 Thin prep Papanicolaou smear with manual screening 31 U/L 15-37 [facility] Comment on above: Moderate Hemolysis, Result may be falsely increased. Thin prep Papanicolaou smear with manual screening 8 5-15 [facility] Whole blood hemoglobin A1c/t otal hemoglobin ratio (mass fraction)Ordered By: Dr. Brooks on 12-17-2022 HbA1c (Bld) [Mass fraction] 6.4 % 3.8-5.6 [facility] Comment on above: Normal < 5.7 % Predi abetic 5.7 - 6.4 % Diabetic >or= 6.5 % Please note range changes. Absolute lymphocyte countOrd ered By: Dr. Chaudhari on 12-16-2022 Lymphocytes Auto (Unsp spec) [#/Vol] 4.24 10*3/uL 0.83-4.51 [facility] Basophil percentageOrdered B y: Dr. Chaudhari on 12-16-2022 Basophils/100 WBC (Bld) 0.4 % 0-1 [facility] Chloride [Moles/Vol] 104 mmol/L 98-107 [facility] Eosinophils/100 WBC (Bld) 2.2 % 0-5 [facility] Glucose [Mass/Vol] 159 mg/dL 74-106 [facility] Comment on above: Fasting Glucose resu lt greater than or equal to 126 mg/dL suggests DIABETES MELLITUS per A.D.A. criteria. Neutrophils (Bld) [#/Vol] 5.5 10*3/uL 2.0-7.7 [facility] Neutrophils/100 WBC (Bld) 47.8 % 47-70 [facility] Potassium [Moles/Vol] 3.8 mmol/L 3.5-5.1 [facility] Comment on above: Moderate Hemolysis, Result may be falsely increased. Sodium [Moles/Vol] 136 mmol/L 136-145 [facility] WBC (Bld) [#/Vol] 11.5 10*3/uL 4.4-11.0 [facility] Blood erythrocytes count (nu mber/volume)Ordered By: Dr. Chaudhari on 12-16-2022 RBC (Bld) [#/Vol] 4.85 10*6/uL 4.2-5.4 [facility] Blood hemoglobin measurement (mass/volume)Ordered By: Dr. Chaudhari on 12-16-2022 Hemoglobin (Bld) [Mass/Vol] 14.7 g/dL 12.0-15.0 [facility] Blood lymphocytes/100 leukoc ytesOrdered By: Dr. Chaudhari on 12-16-2022 Lymphocytes/100 WBC (Bld) 37.0 % 19-41 [facility] Blood monocytes/100 leukocyt esOrdered By: Dr. Chaudhari on 12-16-2022 Monocytes/100 WBC (Bld) 12.3 % 0-10 [facility] Blood platelet mean volumeOr dered By: Dr. Chaudhari on 12-16-2022 Platelet mean volume (Bld) [Entitic vol] 10.5 fL 6.2-12.0 [facility] Determination of erythrocyte mean corpuscular volume (MCV)Ordered By: Dr. Chaudhari on 12-16-2022 MCV (RBC) [Entitic vol] 93.6 fL 81-99 [facility] Glucose Glucometer (BldC) [M ass/Vol]Ordered By: Dr. Chaudhari on 12-16-2022 Glucose [Mass/Vol] 141 mg/dL 74-106 [facility] Comment on above: MANAGEMENT OF PATIEN T CARE PER NURSING PROTOCOL Hematocrit Auto (Bld) [Volum e fraction]Ordered By: Dr. Chaudhari on 12-16-2022 Hematocrit (Bld) [Volume fraction] 45.4 % 37-47 [facility] INR in Blood by Coagulation assayOrdered By: Dr. Chaudhari on 12-16-2022 INR Coag (Bld) [Relative time] 1.0 {INR} [facility] Laboratory - Chemistry and C hemistry - challengeOrdered By: Dr. Chaudhari on 12-16-2022 CO2 [Moles/Vol] 23.0 mmol/L 21.0-32.0 [facility] Urea nitrogen/Creatinine [Mass ratio] 16.8 mg/mg 10-20 [facility] Laboratory - Chemistry and C hemistry - challengeOrdered By: Dr. Brooks on 12-16-2022 Magnesium [Mass/Vol] 2.0 mg/dL 1.6-2.6 [facility] Comment on above: Moderate Hemolysis, Result may be falsely increased. Laboratory - CoagulationOrde red By: Dr. Chaudhari on 12-16-2022 aPTT Coag (Bld) [Time] 24.5 s 24.1-36.2 [facility] PT Coag (PPP) [Time] 13.0 s 11.7-14.9 [facility] Laboratory - Hematology and Cell countsOrdered By: Dr. Chaudhari on 12-16-2022 Erythrocyte distribution width (RBC) [Entitic vol] 53.9 fL 35.1-43.9 [facility] Erythrocyte distribution width (RBC) [Ratio] 15.6 % 11.6-14.6 [facility] Immature granulocytes/100 WBC (Bld) 0.300 % 0.0-0.9 [facility] Comment on above: IG% - Immature Granu locytes (promyelocytes, myelocytes and metamyelocytes) > 1% indicates that a LEFT SHIFT is Present. MCH (RBC) [Entitic mass] 30.3 pg 27.0-32.0 [facility] Nucleated RBC/100 WBC (Bld) [Ratio] 0 % 0-5 [facility] MCHC Auto (RBC) [Mass/Vol]Or dered By: Dr. Chaudhari on 12-16-2022 MCHC (RBC) [Mass/Vol] 32.4 g/dL 32-36 [facility] No Panel InformationOrdered By: Dr. Chaudhari on 12-16-2022 Estimated Creatinine Clearance Calc 36.32 ml/min [facility] Estimated GFR (MDRD) Amer 69 mL/min >60 [facility] Comment on above: GFR Calc Estimated GFR (MDRD) Non-Af Amer 57 mL/min >60 [facility] Comment on above: Non- GFR Calc Troponin I High Sensitivity 5 pg/mL 3.0-54.0 [facility] Comment on above: Please Note: New Roya t Units and Gender Specific Reference Ranges. For more information see Policy Stat Procedure [place] High Sensitivity Troponin (TNIH) and attachments. Platelets bldOrdered By: Dr. Chaudhari on 12-16-2022 Platelets (Bld) [#/Vol] 421 10*3/uL 150-450 [facility] Serum or plasma calcium maribel urement (mass/volume)Ordered By: Dr. Chaudhari on 12-16-2022 Calcium [Mass/Vol] 9.8 mg/dL 8.5-10.1 [facility] Serum or plasma creatinine m easurement (mass/volume)Ordered By: Dr. Chaudhari on 12-16-2022 Creatinine [Mass/Vol] 1.01 mg/dL 0.55-1.02 [facility] Comment on above: The validity of the calculated GFR & GFRAA in patients over 70 years has not been determined. Clinical correlation is essential. Serum or plasma urea nitroge n measurement (mass/volume)Ordered By: Dr. Chaudhari on 12-16-2022 Urea nitrogen [Mass/Vol] 17 mg/dL 7-18 [facility] Thin prep Papanicolaou smear with manual screeningOrdered By: Dr. Chaudhari on 12-16-2022 Thin prep Papanicolaou smear with manual screening 9 5-15 [facility] No Panel Informationon 11-03 [facility] URINE CULTUREon 08-30-2022 Bacteria identified Cx Nom (U) Mixed microbiota, including predominantly: [facility] Bacteria identified Cx Nom (U) >=100,000 CFU/ml Escherichia coli Abnormal [facility] Basic metabolic 2000 panelon 08-29-2022 Anion gap [Moles/Vol] 12 mmol/L 9 - 18 mmol/L [facility] Calcium [Mass/Vol] 9.6 mg/dL 8.5 - 10. 2 mg/dL [facility] Chloride [Moles/Vol] 101 mmol/L 97 - 10 5 mmol/L [facility] CO2 [Moles/Vol] 26 mmol/L 22 - 30 mmol/L [facility] Creatinine [Mass/Vol] 0.75 mg/dL 0.58 - 0.96 mg/dL [facility] Estimated Glomerular Filtration Rate 83 mL/min/1.73m >=60 mL/min/1.[address] [facility] Glucose [Mass/Vol] 68 mg/dL Low 74 - 99 mg/dL [facility] Potassium [Moles/Vol] 4.0 mmol/L 3.7 - 5.1 mmol/L [facility] Sodium [Moles/Vol] 139 mmol/L 136 - 144 mmol/L [facility] Urea nitrogen [Mass/Vol] 16 mg/dL 7 - 21 mg/dL [facility] LIPID PANEL, NONFASTINGon Cholesterol [Mass/Vol] 192 mg/dL <200 mg/dL [facility] HDL Cholesterol, Nonfasting 49 mg/dL >39 mg/dL [facility] LDL Cholesterol, Nonfasting 103 mg/dL High <100 mg/dL [facility] LDL/HDL Ratio, Nonfasting 2.10 mg/dL <2.54 mg/dL [facility] Non HDL Cholesterol, Nonfasting 143 mg/dL High <130 mg/dL [facility] Total Chol/HDL Ratio, Nonfasting 3.92 mg/dL <5.10 mg/dL [facility] Triglycerides, Nonfasting 198 mg/dL High <150 mg/dL [facility] VLDL Cholesterol, Nonfasting 40 mg/dL High <30 mg/dL [facility] Urinalysis complete panel (U )on 08-29-2022 Bilirubin Ql (U) Negative Negative [facility] Clarity (Unsp spec) Clear Clear [facility] Color (U) Light Yellow Yellow [facility] Epithelial cells LM.HPF (Urine sed) [#/Area] Few [facility] Glucose Test strip (U) [Mass/Vol] Negative Negative [facility] Hemoglobin Ql (U) Negative Negative [facility] Ketones Ql (U) Negative Negative [facility] Leukocyte esterase Test strip Ql (U) 250 Jorge/mL Abnormal Negative [facility] Nitrite Ql (U) 2+ Abnormal Negative [facility] pH (U) 6.0 [pH] 5.0 - 8.0 [facility] Protein (U) [Mass/Vol] Trace Abnormal Negative [facility] RBC LM.HPF (Urine sed) [#/Area] 0-3 /HPF 0-3 /HPF [facility] Specific gravity (U) [Rel density] 1.024 1.005 - 1.030 [facility] Urobilinogen Ql (U) Negative Negative [facility] WBC LM.HPF (Urine sed) [#/Area] 6-10 /HPF Abnormal 0-5 /HPF [facility] URINE CULTUREon 08-28-2022 Bacteria identified Cx Nom (U) Invalid Interpretation Code [facility] MRI LUMBAR SPINE WO IVCONon 07-16-2022 [facility] MR Brain WO contraston 06-02 IMPRESSION: Moderate chronic microvascular ischemic change and mild volume loss. No acute infarct or any other evidence of an acute intracranial abnormality. No clear cause for vertigo on the current examination. Home Therapy Clinician: ADAN Transcribe Date/Time: Jun 02 2022 5:03P Dictated by : UCHE GALICIA MD This examination was interpreted and the report reviewed and electronically signed by: UCHE GALICIA MD on Jun 02 2022 5:06PM [facility] DIVISION OF RADIOLOGY * * *Final Report* * * DATE OF EXAM: Jun 02 2022 4:29PM [facility] 0294 - MRI BRAIN WO IVCON / PROCEDURE REASON: Transient cerebral ischemia, unspecified type * * * * Physician Interpretation * * * * EXAMINATION: MRI BRAIN WO IVCON CLINICAL HISTORY: Transient cerebral ischemia. Dizziness. Balance problems. Falls. TECHNIQUE: Routine noncontrast MRI protocol including diffusion images. MQ: MRBWO_2 COMPARISON: None. RESULT: Acute Change: There is no evidence of restricted diffusion to suggest an acute infarct. Hemorrhage: No evidence of prior parenchymal hemorrhage on the gradient echo images. Mass Lesion/ Mass Effect: No evidence of an intracranial mass or extra-axial fluid collection. No significant mass effect. Chronic Change: Scattered patchy and confluent areas of increased T2 and FLAIR signal are present in the supratentorial white matter which is nonspecific but likely represents chronic microvascular ischemia. Parenchyma: There is mild generalized parenchymal volume loss. The brain parenchyma is otherwise within normal limits of signal intensity and morphology. Ventricles: Ventriculomegaly corresponds to the degree of parenchymal volume loss. Skull Base: Hypothalamic and pituitary region are grossly normal. Craniocervical junction is normal. No significant marrow replacement process. Vasculature: Major intracranial arterial structures, and dural venous sinuses show typical flow void, suggesting patency by spin echo criteria. Other: The visualized paranasal sinuses and mastoid air cells are clear. The orbits and extracranial soft tissues are unremarkable. DIVISION OF RADIOLOGY Provider, Bell Laughlin - 06/02/2022 * * *Final Report* * * DATE OF EXAM: Jun 02 2022 4:29PM [facility] 0294 - MRI BRAIN WO IVCON / PROCEDURE REASON: Transient cerebral ischemia, unspecified type * * * * Physician Interpretation * * * * EXAMINATION: MRI BRAIN WO IVCON CLINICAL HISTORY: Transient cerebral ischemia. Dizziness. Balance problems. Falls. TECHNIQUE: Routine noncontrast MRI protocol including diffusion images. MQ: MRBWO_2 COMPARISON: None. RESULT: Acute Change: There is no evidence of restricted diffusion to suggest an acute infarct. Hemorrhage: No evidence of prior parenchymal hemorrhage on the gradient echo images. Mass Lesion/ Mass Effect: No evidence of an intracranial mass or extra-axial fluid collection. No significant mass effect. Chronic Change: Scattered patchy and confluent areas of increased T2 and FLAIR signal are present in the supratentorial white matter which is nonspecific but likely represents chronic microvascular ischemia. Parenchyma: There is mild generalized parenchymal volume loss. The brain parenchyma is otherwise within normal limits of signal intensity and morphology. Ventricles: Ventriculomegaly corresponds to the degree of parenchymal volume loss. Skull Base: Hypothalamic and pituitary region are grossly normal. Craniocervical junction is normal. No significant marrow replacement process. Vasculature: Major intracranial arterial structures, and dural venous sinuses show typical flow void, suggesting patency by spin echo criteria. Other: The visualized paranasal sinuses and mastoid air cells are clear. The orbits and extracranial soft tissues are unremarkable. IMPRESSION IMPRESSION: Moderate chronic microvascular ischemic change and mild volume loss. No acute infarct or any other evidence of an acute intracranial abnormality. No clear cause for vertigo on the current examination. Home Therapy Clinician: ADAN Transcribe Date/Time: Jun 02 2022 5:03P Dictated by : UCHE GALICIA MD This examination was interpreted and the report reviewed and electronically signed by: UCHE GALICIA MD on Jun 02 2022 5:06PM EST [facility] Radiology Study observation (narrative) [facility] MR Brain WO contrastOrdered By: Ccf Provider on 06-02-2022 [facility] XR Lumbar spine 3 Viewson IMPRESSION: L1 vertebral body compression deformity/age indeterminate fracture. Lumbar spine degenerative changes with multilevel disc space narrowing. Home Therapy Clinician: ADAN Transcribe Date/Time: May 08 2022 1:10P Dictated by : GEENA MORGAN MD This examination was interpreted and the report reviewed and electronically signed by: EGENA MORGAN MD on May 08 2022 1:17PM EST [id number] SE_DIVISION OF RADIOLOGY * * *Final Report* * * DATE OF EXAM: Aug 11 2022 4:23PM WOX [id number] - XR LUMBAR 3V AP/LAT/L5-S1 / PROCEDURE REASON: multiple diagnoses * * * * Physician Interpretation * * * * EXAM TITLE: XR LUMBAR 3V AP/LAT/L5-S1 EXAM DATE/TIME: 05/07/2022 4:23 PM COMPARISON: None. CLINICAL INDICATION/HISTORY: Leg weakness. TECHNIQUE: AP, lateral and cone down lateral views of the lumbar spine are presented. FINDINGS: There are five opx-yso-yzuuyhd lumbar vertebrae. L1 vertebral body compression deformity/age indeterminate fracture is demonstrated. There is minimal L2 on L3 retrolisthesis. L1-2, L2-3 and L4-5 disc space narrowing is noted. There is mild to moderate osteophyte formation, with facet arthrosis in the lower lumbar spine. Kissing spine seen on lateral view. Others: There are vascular calcifications. [id number] _DIVISION OF RADIOLOGY Provider, [facility] - 05/08/2022 * * *Final Report* * * DATE OF EXAM: May 07 2022 4:23PM [facility]OX [id number] - XR LUMBAR 3V AP/LAT/L5-S1 / PROCEDURE REASON: multiple diagnoses * * * * Physician Interpretation * * * * EXAM TITLE: XR LUMBAR 3V AP/LAT/L5-S1 EXAM DATE/TIME: 05/07/2022 4:23 PM COMPARISON: None. CLINICAL INDICATION/HISTORY: Leg weakness. TECHNIQUE: AP, lateral and cone down lateral views of the lumbar spine are presented. FINDINGS: There are five jpg-uty-zrmzeca lumbar vertebrae. L1 vertebral body compression deformity/age indeterminate fracture is demonstrated. There is minimal L2 on L3 retrolisthesis. L1-2, L2-3 and L4-5 disc space narrowing is noted. There is mild to moderate osteophyte formation, with facet arthrosis in the lower lumbar spine. Kissing spine seen on lateral view. Others: There are vascular calcifications. IMPRESSION IMPRESSION: L1 vertebral body compression deformity/age indeterminate fracture. Lumbar spine degenerative changes with multilevel disc space narrowing. Home Therapy Clinician: ADAN Transcribe Date/Time: May 08 2022 1:10P Dictated by : GEENA MORGAN MD This examination was interpreted and the report reviewed and electronically signed by: GEENA MORGAN MD on May 08 2022 1:17PM EST [facility] XR Lumbar spine 3 ViewsOrder ed By: Ccf Provider on 05-08-2022 [facility] XR Lumbar spine 3 Viewson Radiology Study [facility] (narrative) [facility] OSMIN DIAGNOSTIC RTon 03-11-20 [facility] US BREAST LTD RTon 2 [facility] DXA-AXIAL SKELETONon 022 [facility] XR Chest PA and Lateralon IMPRESSION: No acute radiographic abnormality. Home Therapy Clinician: PSCB Transcribe Date/Time: Dec 27 2020 4:32P Dictated by : Javan HALL MD This examination was interpreted and the report reviewed and electronically signed by: Javan HALL MD on Dec 27 2020 4:34PM EST DIVISION OF RADIOLOGY * * *Final Report* * * DATE OF EXAM: Dec 27 2020 4:26PM WOX 5291 - XR CHEST 2V FRONTAL/LAT / PROCEDURE REASON: Cough * * * * Physician Interpretation * * * * EXAMINATION: CHEST RADIOGRAPH (2 VIEW FRONTAL & LATERAL) CLINICAL HISTORY: Cough MQ: XC2_6 EXAM DATE/TIME: 12/27/2020 4:26 PM COMPARISON: 10/23/2020 RESULT: Lines, tubes, and devices: None. Lungs and pleura: No consolidation. No lung mass. 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 No pleural effusion. No pneumothorax. Cardiomediastinal silhouette: Arteriosclerosis and tortuous thoracic aorta. Bones and soft tissues: Chronic L1 compression deformity. DIVISION OF RADIOLOGY Provider, [facility] [place] - 12/27/2020 * * *Final Report* * * DATE OF EXAM: Dec 27 2020 4:26PM WOX 5291 - XR CHEST 2V FRONTAL/LAT / PROCEDURE REASON: Cough * * * * Physician Interpretation * * * * EXAMINATION: CHEST RADIOGRAPH (2 VIEW FRONTAL & LATERAL) CLINICAL HISTORY: Cough MQ: XC2_6 EXAM DATE/TIME: 12/27/2020 4:26 PM COMPARISON: 10/23/2020 RESULT: Lines, tubes, and devices: None. Lungs and pleura: No consolidation. No lung mass. 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 No pleural effusion. No pneumothorax. Cardiomediastinal silhouette: Arteriosclerosis and tortuous thoracic aorta. Bones and soft tissues: Chronic L1 compression deformity. IMPRESSION IMPRESSION: No acute radiographic abnormality. [facility] Transcribe Date/Time: Dec 27 2020 4:32P Dictated by : Javan HALL MD This examination was interpreted and the report reviewed and electronically signed by: Javan HALL MD on Dec 27 2020 4:34PM EST [facility] Radiology Study observation (narrative) [facility] XR Chest PA and LateralOrder ed By: Ccf Provider on 12-27-2020 [facility] XR Chest PA and Lateralon IMPRESSION: No acute radiographic abnormality. Home Therapy Clinician: [facility] Transcribe Date/Time: Oct 23 2020 3:20P Dictated by : AMIE BRASHER MD This examination was interpreted and the report reviewed and electronically signed by: AMIE BRASHER MD on Oct 23 2020 3:23PM EST DIVISION OF RADIOLOGY * * *Final Report* * * DATE OF EXAM: Oct 23 2020 3:10PM WOX 5291 - XR CHEST 2V FRONTAL/LAT / PROCEDURE REASON: multiple diagnoses * * * * Physician Interpretation * * * * EXAMINATION: CHEST RADIOGRAPH (2 VIEW FRONTAL & LATERAL) CLINICAL HISTORY: Cough Shortness of breath MQ: XC2_6 EXAM DATE/TIME: 10/23/2020 3:10 PM COMPARISON: 11/05/2018 RESULT: Lines, tubes, and devices: None. Lungs and pleura: No consolidation. No lung mass. No pleural effusion. No pneumothorax. Cardiomediastinal silhouette: Normal cardiomediastinal silhouette. Bones and soft tissues: Unremarkable. DIVISION OF RADIOLOGY Provider, [facility] - 10/23/2020 * * *Final Report* * * DATE OF EXAM: Oct 23 2020 3:10PM WOX 5291 - XR CHEST 2V FRONTAL/LAT / PROCEDURE REASON: multiple diagnoses * * * * Physician Interpretation * * * * EXAMINATION: CHEST RADIOGRAPH (2 VIEW FRONTAL & LATERAL) CLINICAL HISTORY: Cough Shortness of breath MQ: XC2_6 EXAM DATE/TIME: 10/23/2020 3:10 PM COMPARISON: 11/05/2018 RESULT: Lines, tubes, and devices: None. Lungs and pleura: No consolidation. No lung mass. No pleural effusion. No pneumothorax. Cardiomediastinal silhouette: Normal cardiomediastinal silhouette. Bones and soft tissues: Unremarkable. IMPRESSION IMPRESSION: No acute radiographic abnormality. Home Therapy Clinician: ADAN Transcribe Date/Time: Oct 23 2020 3:20P Dictated by : AMIE BRASHER MD This examination was interpreted and the report reviewed and electronically signed by: AMIE BRASHER MD on Oct 23 2020 3:23PM EST [facility] Radiology Study observation (narrative) [facility] XR Chest PA and LateralOrder ed By: Ccf Provider on 10-23-2020 [facility] Large Joint Arthro/Inj: bila teral knee joints [facility] Vital Signs Date Time Vital Sign Value Performing Clinician Facility 02-16-2025 07:20-0400 Body mass index (BMI) [Ratio] 33.2 kg/m2 Dr. Yenifer Gonsalez MD Work Phone: [facility] 02-16-2025 07:20-0400 Body weight 79.[address] Yenifer Gonsalez MD Work Phone: 6(702)845-371857 [place] [address] 02-16-2025 07:20-0400 Diastolic blood pressure 91 mm[Hg] Dr. Yenifer Gonsalez MD Work Phone: [facility] 02-16-2025 07:20-0400 Heart rate 85 /min Dr. Yenifer Gonsalez MD Work Phone: [facility] 02-16-2025 07:20-0400 Respiratory rate 18 /min Dr. Yenifer Gonsalez MD Work Phone: [facility] 02-16-2025 07:20-0400 SaO2% (BldA) [Mass fraction] 96 % Dr. Yenifer Gonsalez MD Work Phone: [facility] 02-16-2025 07:20-0400 Systolic blood pressure 144 mm[Hg] Dr. Yenifer Gonslaez MD Work Phone: [facility] 01-30-2025 10:22-0400 Diastolic blood pressure 80 mm[Hg] [facility] COMPUTER SUPPORT SPECIALIST.ENVIRONMENTAL ATTORNEY Work Phone: [facility] 01-30-2025 10:22-0400 Systolic blood pressure 125 mm[Hg] [facility] COMPUTER SUPPORT SPECIALIST.ENVIRONMENTAL ATTORNEY Work Phone: [facility] 01-30-2025 10:19-0400 Body mass index (BMI) [Ratio] 33.78 kg/m2 [facility] COMPUTER SUPPORT SPECIALIST.ENVIRONMENTAL ATTORNEY Work Phone: [facility] 01-30-2025 10:19-0400 Body weight 79.6 kg [facility] COMPUTER SUPPORT SPECIALIST.ENVIRONMENTAL ATTORNEY Work Phone: [facility] 01-30-2025 10:19-0400 Heart rate 76 /min [facility] COMPUTER SUPPORT SPECIALIST.ENVIRONMENTAL ATTORNEY Work Phone: [facility] 01-30-2025 10:19-0400 SaO2% (BldA) [Mass fraction] 96 % [facility] COMPUTER SUPPORT SPECIALIST.ENVIRONMENTAL ATTORNEY Work Phone: [facility] 01-23-2025 15:34-0400 Body mass index (BMI) [Ratio] 34.3 kg/m2 Dr. Yenifer Gonsalez MD Work Phone: [facility] 01-23-2025 15:07-0400 Body temperature 98.4 [degF] Dr. Yenifer Gonsalez MD Work Phone: [facility] 01-23-2025 15:07-0400 Diastolic blood pressure 71 mm[Hg] Dr. Yenifer Gonsalez MD Work Phone: [facility] 01-23-2025 15:07-0400 Heart rate 99 /min Dr. Yenifer Gonsalez MD Work Phone: [facility] 01-23-2025 15:07-0400 Respiratory rate 18 /min Dr. Yenifer Gonsalez MD Work Phone: [facility] 01-23-2025 15:07-0400 SaO2% (BldA) [Mass fraction] 97 % Dr. Yenifer Gonsalez MD Work Phone: 9(569)666-574049 [place] [address] 01-23-2025 15:07-0400 Systolic blood pressure 147 mm[Hg] Dr. Yenifer Gonsalez MD Work Phone: 8(043)359-649649 [place] [address] 01-23-2025 06:50-0400 Inhaled oxygen flow rate 2 L/min Dr. Yenifer Gonsalez MD Work Phone: 8(333)077-761349 [place] [address] 01-22-2025 21:39-0400 Body height 154.[address] Yenifer Gonsalez MD Work Phone: 5(560)044-932449 [place] [address] 01-22-2025 21:39-0400 Body weight 82.[address] Yenifer Gonsalez MD Work Phone: 1(227)340-079749 [place] [address] 01-22-2025 21:00-0400 Diastolic blood pressure 74 mm[Hg] Dr. Yenifer Gonsalez MD Work Phone: 2(835)486-989849 [place] [address] 01-22-2025 21:00-0400 Heart rate 85 /min Dr. Yenifer Gonsalez MD Work Phone: 9(120)786-206949 [place] [address] 01-22-2025 21:00-0400 Respiratory rate 13 /min Dr. Yenifer Gonsalez MD Work Phone: 9(507)768-562849 [place] [address] 01-22-2025 21:00-0400 SaO2% (BldA) [Mass fraction] 96 % Dr. Yenifer Gonsalez MD Work Phone: 2(382)377-855149 [place] [address] 01-22-2025 21:00-0400 Systolic blood pressure 133 mm[Hg] Dr. Yenifer Gonsalez MD Work Phone: 7(883)785-270849 [place] [address] 01-22-2025 20:13-0400 Body temperature 98.4 [degF] Dr. Yenifer Gonsalez MD Work Phone: 0(431)699-920849 [place] [address] 01-22-2025 17:54-0400 Body mass index (BMI) [Ratio] 34.7 kg/m2 Dr. Yenifer Gonsalez MD Work Phone: 3(527)321-989749 [place] [address] 01-22-2025 17:45-0400 Body height 154.[address] Yenifer Gonsalez MD Work Phone: [facility] 01-22-2025 17:45-0400 Body weight 83.[address] Yenifer Gonsalez MD Work Phone: [facility] 01-12-2025 17:32-0400 SaO2% (BldA) [Mass fraction] 96 % Dr. Yenifer Gonsalez MD Work Phone: 6(900)423-559557 [place] [address] 01-12-2025 15:56-0400 Body height 154.[address] Yenifer Gonsalez MD Work Phone: 2(020)854-614757 [place] [address] 01-12-2025 15:56-0400 Body mass index (BMI) [Ratio] 33.6 kg/m2 Dr. Yenifer Gonsalez MD Work Phone: 8(575)044-859983 [address] 01-12-2025 15:56-0400 Body temperature 98.1 [degF] Dr. Yenifer Gonsalez MD Work Phone: 3(686)251-342157 [place] [address] 01-12-2025 15:56-0400 Body weight 80.[address] Yenifer Gonsalez MD Work Phone: [facility] 01-12-2025 15:56-0400 Diastolic blood pressure 74 mm[Hg] Dr. Yenifer Gonsalez MD Work Phone: [facility] 01-12-2025 15:56-0400 Heart rate 92 /min Dr. Yenifer Gonsalez MD Work Phone: [facility] 01-12-2025 15:56-0400 Respiratory rate 19 /min Dr. Yenifer Gonsalez MD Work Phone: [facility] 01-12-2025 15:56-0400 Systolic blood pressure 153 mm[Hg] Dr. Yenifer Gonsalez MD Work Phone: [facility] 09-05-2024 17:21-0500 Body height 153.5 cm Yenifer Gonsalez MD Work Phone: [facility] 09-05-2024 17:21-0500 Body mass index (BMI) [Ratio] 34.8 kg/m2 Yenifer Gonsalez MD Work Phone: [facility] 09-05-2024 17:21-0500 Body temperature 98.91 [degF] Yenifer Gonsalez MD Work Phone: [facility] 09-05-2024 17:21-0500 Body weight 82 kg Yenifer Gonsalez MD Work Phone: [facility] 09-05-2024 17:21-0500 Diastolic blood pressure 72 mm[Hg] Yenifer Gonsalez MD Work Phone: [facility] 09-05-2024 17:21-0500 Heart rate 96 /min Yenifer Gonsalez MD Work Phone: [facility] 09-05-2024 17:21-0500 Respiratory rate 16 /min Yenifer Gonsalez MD Work Phone: [facility] 09-05-2024 17:21-0500 SaO2% (BldA) [Mass fraction] 96 % Yenifer Gonsalez MD Work Phone: [facility] 09-05-2024 17:21-0500 Systolic blood pressure 128 mm[Hg] Yenifer Gonsalez MD Work Phone: [facility] 07-13-2024 18:51-0400 Body mass index (BMI) [Ratio] 34.55 kg/m2 Ryanne Garcia COMPUTER SUPPORT SPECIALIST.BEER COOLER Work Phone: [facility] 07-13-2024 18:51-0400 Body temperature 98.29 [degF] Ryanne Garcia COMPUTER SUPPORT SPECIALIST.BEER COOLER Work Phone: [facility] 07-13-2024 18:51-0400 Body weight 81.4 kg Ryanne Garcia COMPUTER SUPPORT SPECIALIST.BEER COOLER Work Phone: [facility] 07-13-2024 18:51-0400 Diastolic blood pressure 82 mm[Hg] Ryanne Garcia COMPUTER SUPPORT SPECIALIST.BEER COOLER Work Phone: [facility] 07-13-2024 18:51-0400 Heart rate 104 /min Ryanne Garcia COMPUTER SUPPORT SPECIALIST.BEER COOLER Work Phone: [facility] 07-13-2024 18:51-0400 Respiratory rate 18 /min Ryanne Garcia COMPUTER SUPPORT SPECIALIST.BEER COOLER Work Phone: [facility] 07-13-2024 18:51-0400 SaO2% (BldA) [Mass fraction] 96 % Ryanne Garcia COMPUTER SUPPORT SPECIALIST.BEER COOLER Work Phone: [facility] 07-13-2024 18:51-0400 Systolic blood pressure 131 mm[Hg] Ryanne Garcia COMPUTER SUPPORT SPECIALIST.BEER COOLER Work Phone: [facility] 05-19-2024 08:11-0400 Diastolic blood pressure 85 mm[Hg] Christa Cabrera COMPUTER SUPPORT SPECIALIST.ENVIRONMENTAL ATTORNEY Work Phone: [facility] 05-19-2024 08:11-0400 Systolic blood pressure 155 mm[Hg] Christa Cabrera COMPUTER SUPPORT SPECIALIST.ENVIRONMENTAL ATTORNEY Work Phone: [facility] 05-19-2024 08:10-0400 Heart rate 85 /min Christa Cabrera COMPUTER SUPPORT SPECIALIST.ENVIRONMENTAL ATTORNEY Work Phone: [facility] 05-19-2024 08:10-0400 Respiratory rate 16 /min Christa Cabrera COMPUTER SUPPORT SPECIALIST.ENVIRONMENTAL ATTORNEY Work Phone: [facility] 02-28-2024 13:58-0400 Body mass index (BMI) [Ratio] 34.07 kg/m2 Yenifer Gonsalez MD Work Phone: [facility] 02-28-2024 13:58-0400 Body temperature 97.81 [degF] Yenifer Gonsalez MD Work Phone: [facility] 02-28-2024 13:58-0400 Body weight 80.29 kg Yenifer Gonsalez MD Work Phone: [facility] 02-28-2024 13:58-0400 Diastolic blood pressure 60 mm[Hg] Yenifer Gonsalez MD Work Phone: [facility] 02-28-2024 13:58-0400 Heart rate 92 /min Yenifer Gonsalez MD Work Phone: [facility] 02-28-2024 13:58-0400 Respiratory rate 18 /min Yenifer Gonsalez MD Work Phone: [facility] 02-28-2024 13:58-0400 SaO2% (BldA) [Mass fraction] 96 % Yenifer Gonsalez MD Work Phone: [facility] 02-28-2024 13:58-0400 Systolic blood pressure 112 mm[Hg] Yenifer Gonsalez MD Work Phone: [facility] 09-15-2023 13:01-0500 Body temperature 98.24 [degF] DR YUNIOR ELAINE MD [facility] 09-15-2023 13:01-0500 Diastolic Blood Pressure Non-Invasive 73 mm[Hg] DR YUNIOR ELAINE MD [facility] 09-15-2023 13:01-0500 Heart rate 94 /min DR YUNIOR ELAINE MD [facility] 09-15-2023 13:01-0500 Respiratory rate 16 /min DR YUNIOR ELAINE MD [facility] 09-15-2023 13:01-0500 Systolic Blood Pressure Non-Invasive 142 mm[Hg] DR YUNIOR ELAINE MD [facility] 09-15-2023 06:25-0500 Body temperature 98.24 [degF] DR YUNIOR ELAINE MD [facility] 09-15-2023 06:25-0500 Diastolic Blood Pressure Non-Invasive 69 mm[Hg] DR YUNIOR ELAINE MD [facility] 09-15-2023 06:25-0500 Heart rate 83 /min DR YUNIOR ELAINE MD [facility] 09-15-2023 06:25-0500 Respiratory rate 16 /min DR YUNIOR ELAINE MD [facility] 09-15-2023 06:25-0500 Systolic Blood Pressure Non-Invasive 130 mm[Hg] DR YUNIOR ELAINE MD [facility] 09-15-2023 04:52-0500 Body temperature 98.06 [degF] DR YUNIOR ELAINE MD [facility] 09-15-2023 04:52-0500 Diastolic Blood Pressure Non-Invasive 71 mm[Hg] DR YUNIOR ELAINE MD [facility] 09-15-2023 04:52-0500 Heart rate 86 /min DR YUNIOR ELAINE MD [facility] 09-15-2023 04:52-0500 Respiratory rate 16 /min DR YUNIOR ELAINE MD [facility] 09-15-2023 04:52-0500 Systolic Blood Pressure Non-Invasive 128 mm[Hg] DR YUNIOR ELAINE MD [facility] 09-14-2023 23:58-0500 Heart rate 86 /min DR YUNIOR ELAINE MD [facility] 09-14-2023 11:47-0500 Body height [address] YUNIOR ELAINE MD [facility] 09-14-2023 11:47-0500 Body weight 80.[address] YUNIOR ELAINE MD [facility] 09-14-2023 11:47-0500 Body weight 33.63 kg/m2 DR YUNIOR ELAINE MD [facility] 09-14-2023 09:55-0500 Body temperature 97.16 [degF] DR YUNIOR ELAINE MD [facility] 09-14-2023 09:45-0500 Respiratory Rate - Anes 0 br/min DR YUNIOR ELAINE MD [facility] 09-14-2023 09:40-0500 Respiratory Rate - Anes 17 br/min DR YUNIOR ELAINE MD [facility] 09-14-2023 09:35-0500 Respiratory Rate - Anes 6 br/min DR YUNIOR ELAINE MD [facility] 09-14-2023 09:30-0500 Body temperature 96.8 [degF] DR YUNIOR ELAINE MD [facility] 09-14-2023 09:15-0500 Body temperature 96.8 [degF] DR YUNIOR ELAINE MD [facility] 09-14-2023 09:01-0500 Body temperature 96.8 [degF] DR YUNIOR ELAINE MD [facility] 09-14-2023 08:40-0500 Body height [address] YUNIOR ELAINE MD [facility] 09-14-2023 08:40-0500 Body weight 80.[address] YUNIOR ELAINE MD [facility] 09-14-2023 07:58-0500 Body temperature 97.52 [degF] DR YUNIOR ELAINE MD [facility] 09-14-2023 07:58-0500 Heart rate 87 /min DR YUNIOR ELAINE MD [facility] 08-30-2023 13:13-0500 Body height 153.5 cm Yenifer Gonsalez MD Work Phone: [facility] 08-30-2023 13:13-0500 Body temperature 97.5 [degF] Yenifer Gonsalez MD Work Phone: [facility] 08-30-2023 13:13-0500 Body weight 80.29 kg Yenifer Gonsalez MD Work Phone: [facility] 08-30-2023 13:13-0500 Diastolic blood pressure 68 mm[Hg] Yenifer Gonsalez MD Work Phone: [facility] 08-30-2023 13:13-0500 Heart rate 100 /min Yenifer Gonsalez MD Work Phone: [facility] 08-30-2023 13:13-0500 Respiratory rate 18 /min Yenifer Gonsalez MD Work Phone: [facility] 08-30-2023 13:13-0500 SaO2% (BldA) [Mass fraction] 96 % Yenifer Gonsalez MD Work Phone: [facility] 08-30-2023 13:13-0500 Systolic blood pressure 118 mm[Hg] Yenifer Gonsalez MD Work Phone: [facility] 08-18-2023 10:25-0500 Blood Pressure Cuff Size DR YUNIOR ELAINE MD [facility] 08-18-2023 10:25-[address] YUNIOR ELAINE MD [facility] 08-18-2023 10:25-[address] YUNIOR Vee [facility] 08-18-2023 10:25-0500 Body height [address] YUNIOR ELAINE MD [facility] 08-18-2023 10:25-0500 Body weight 80.[address] YUNIOR ELAINE MD [facility] 08-18-2023 10:25-0500 Diastolic Blood Pressure Non-Invasive 66 mm[Hg] DR YUNIOR ELAINE MD [facility] 08-18-2023 10:25-0500 Heart rate 83 /min DR YUNIOR ELAINE MD [facility] 08-18-2023 10:25-0500 Systolic Blood Pressure Non-Invasive 116 mm[Hg] DR YUNIOR ELAINE MD [facility] 06-23-2023 08:06-0400 Body height 154.[address] Yenifer Gonsalez Work Phone: [phone] [place] [address] 06-23-2023 08:06-0400 Body mass index (BMI) [Ratio] 33.6 kg/m2 Dr. Yenifer Gonsalez Work Phone: [facility] 06-23-2023 08:06-0400 Body weight 80.[address] Yenifer Gonsalez Work Phone: [facility] 06-23-2023 08:06-0400 Diastolic blood pressure 94 mm[Hg] Dr. Yenifer Gonsalez Work Phone: [facility] 06-23-2023 08:06-0400 Heart rate 91 /min Dr. Yenifer Gonsalez Work Phone: [facility] 06-23-2023 08:06-0400 Respiratory rate 18 /min Dr. Yenifer Gonaslez Work Phone: [facility] 06-23-2023 08:06-0400 SaO2% (BldA) [Mass fraction] 94 % Dr. Yenifer Gonsalez Work Phone: [facility] 06-23-2023 08:06-0400 Systolic blood pressure 138 mm[Hg] Dr. Yenifer Gonsalez Work Phone: [facility] 02-26-2023 10:34-0400 Body temperature 98.49 [degF] Yenifer Gonsalez MD Work Phone: [facility] 02-26-2023 10:34-0400 Body weight 78.02 kg Yenifer Gonsalez MD Work Phone: [facility] 02-26-2023 10:34-0400 Diastolic blood pressure 68 mm[Hg] Yenifer Gonsalez MD Work Phone: [facility] 02-26-2023 10:34-0400 Heart rate 87 /min Yeinfer Gonsalez MD Work Phone: [facility] 02-26-2023 10:34-0400 Respiratory rate 18 /min Yenifer Gonsalez MD Work Phone: [facility] 02-26-2023 10:34-0400 SaO2% (BldA) [Mass fraction] 98 % Yenifer Gonsalez MD Work Phone: [facility] 02-26-2023 10:34-0400 Systolic blood pressure 122 mm[Hg] Yenifer Gonsalez MD Work Phone: [facility] 02-04-2023 13:41-0400 Body temperature 97.81 [degF] Michelle Dahlhausen COMPUTER SUPPORT SPECIALIST.BEER COOLER Work Phone: [facility] 02-04-2023 13:41-0400 Body weight 77.47 kg Michelle Dahlhausen COMPUTER SUPPORT SPECIALIST.BEER COOLER Work Phone: [facility] 02-04-2023 13:41-0400 Diastolic blood pressure 86 mm[Hg] Michelle Dahlhausen COMPUTER SUPPORT SPECIALIST.BEER COOLER Work Phone: [facility] 02-04-2023 13:41-0400 Heart rate 85 /min Imchelle Dahlhausen COMPUTER SUPPORT SPECIALIST.BEER COOLER Work Phone: [facility] 02-04-2023 13:41-0400 Respiratory rate 16 /min Michelle Dahlhausen COMPUTER SUPPORT SPECIALIST.BEER COOLER Work Phone: [facility] 02-04-2023 13:41-0400 SaO2% (BldA) [Mass fraction] 97 % Michelle Dahlhausen COMPUTER SUPPORT SPECIALIST.BEER COOLER Work Phone: [facility] 02-04-2023 13:41-0400 Systolic blood pressure 144 mm[Hg] Michelle Dahlhausen COMPUTER SUPPORT SPECIALIST.BEER COOLER Work Phone: [facility] 01-26-2023 13:08-0400 Body weight 77.56 kg Dione Maryam COMPUTER SUPPORT SPECIALIST.BEER COOLER Work Phone: [facility] 01-26-2023 13:08-0400 Diastolic blood pressure 70 mm[Hg] Dione Maryam COMPUTER SUPPORT SPECIALIST.BEER COOLER Work Phone: [facility] 01-26-2023 13:08-0400 Heart rate 88 /min Dione Maryam COMPUTER SUPPORT SPECIALIST.BEER COOLER Work Phone: [facility] 01-26-2023 13:08-0400 SaO2% (BldA) [Mass fraction] 98 % Dione Maryam COMPUTER SUPPORT SPECIALIST.BEER COOLER Work Phone: [facility] 01-26-2023 13:08-0400 Systolic blood pressure 126 mm[Hg] Dione Maryam COMPUTER SUPPORT SPECIALIST.BEER COOLER Work Phone: [facility] 01-02-2023 10:33-0400 Body temperature 99 [degF] Yenifer Gonsalez MD Work Phone: [facility] 01-02-2023 10:33-0400 Body weight 78.02 kg Yenifer Gonsalez MD Work Phone: [facility] 01-02-2023 10:33-0400 Diastolic blood pressure 60 mm[Hg] Yenifer Gonsalez MD Work Phone: [facility] 01-02-2023 10:33-0400 Heart rate 88 /min Yenifer Gonsalez MD Work Phone: [facility] 04-08-2023 10:33-0400 Respiratory rate 18 /min Yenifer Gonsalez MD Work Phone: [facility] 01-02-2023 10:33-0400 SaO2% (BldA) [Mass fraction] 97 % Yenifer Gonsalez MD Work Phone: [facility] 01-02-2023 10:33-0400 Systolic blood pressure 114 mm[Hg] Yenifer Gonsalez MD Work Phone: [facility] 12-19-2022 09:00-0400 Body temperature 97.9 [degF] Dr. Yenifer Gonsalez Work Phone: [facility] 12-19-2022 09:00-0400 Diastolic blood pressure 85 mm[Hg] Dr. Yenifer Gonsalez Work Phone: [facility] 12-19-2022 09:00-0400 Heart rate 88 /min Dr. Yenifer Gonsalez Work Phone: [facility] 12-19-2022 09:00-0400 Respiratory rate 14 /min Dr. Yenifer Gonsalez Work Phone: [facility] 12-19-2022 09:00-0400 SaO2% (BldA) [Mass fraction] 97 % Dr. Yenifer Gonsalez Work Phone: [facility] 12-19-2022 09:00-0400 Systolic blood pressure 133 mm[Hg] Dr. Yenifer Gonsalez Work Phone: [facility] 12-18-2022 19:00-0400 Body mass index (BMI) [Ratio] 35 kg/m2 Dr. Yenifer Gonsalez Work Phone: [facility] 12-18-2022 10:01-0400 Body height 152.[address] Yenifer Gonsalez Work Phone: [facility] 12-18-2022 10:01-0400 Body weight 81.[address] Yenifer Gonsalez Work Phone: [facility] 12-16-2022 20:41-0400 Body temperature 98.2 [degF] [facility] 12-16-2022 20:41-0400 Diastolic blood pressure 86 mm[Hg] [facility] 12-16-2022 20:41-0400 Heart rate 83 /min [facility] 12-16-2022 20:41-0400 Respiratory rate 15 /min [facility] 12-16-2022 20:41-0400 SaO2% (BldA) [Mass fraction] 95 % [facility] 12-16-2022 20:41-0400 Systolic blood pressure 145 mm[Hg] [facility] 12-16-2022 18:55-0400 Body height 154.99 cm [facility] 12-16-2022 18:55-0400 Body mass index (BMI) [Ratio] 35.3 kg/m2 [facility] 12-16-2022 18:55-0400 Body weight 84.9 kg [facility] 08-28-2022 14:31-0500 Body weight 83.1 kg Yenifer Gonsalez MD Work Phone: [facility] 08-28-2022 14:31-0500 Diastolic blood pressure 76 mm[Hg] Yenifer Gonsalez MD Work Phone: [facility] 08-28-2022 14:31-0500 Heart rate 83 /min Yenifer Gonsalez MD Work Phone: [facility] 08-28-2022 14:31-0500 Respiratory rate 16 /min Yenifer Gonsalez MD Work Phone: [facility] 08-28-2022 14:31-0500 SaO2% (BldA) [Mass fraction] 96 % Yenifer Gonsalez MD Work Phone: [facility] 08-28-2022 14:31-0500 Systolic blood pressure 112 mm[Hg] Yenifer Gonsalez MD Work Phone: [facility] 07-23-2022 13:00-0400 Diastolic blood pressure 80 mm[Hg] Ryanne Kaba [facility] 07-23-2022 13:00-0400 Heart rate 73 /min Ryanne Kaba PT [facility] 07-23-2022 13:00-0400 SaO2% (BldA) [Mass fraction] 96 % Ryanne Kaba PT [facility] 07-23-2022 13:00-0400 Systolic blood pressure 134 mm[Hg] Ryanne Kaba PT [facility] 06-24-2022 13:27-0400 Diastolic blood pressure 64 mm[Hg] Annette Older COMPUTER SUPPORT SPECIALIST.BEER COOLER Work Phone: [facility] 06-24-2022 13:27-0400 Systolic blood pressure 110 mm[Hg] Annette Older COMPUTER SUPPORT SPECIALIST.BEER COOLER Work Phone: [facility] 06-24-2022 13:14-0400 Body weight 79.83 kg Annette Older COMPUTER SUPPORT SPECIALIST.BEER COOLER Work Phone: [facility] 06-24-2022 13:14-0400 Heart rate 86 /min Annette Older COMPUTER SUPPORT SPECIALIST.BEER COOLER Work Phone: [facility] 06-24-2022 13:14-0400 Respiratory rate 16 /min Annette Older COMPUTER SUPPORT SPECIALIST.BEER COOLER Work Phone: [facility] 05-03-2022 04:19-0400 Diastolic blood pressure 68 mm[Hg] [facility] Work Phone: 05-03-2022 04:19-0400 Heart rate 72 /min [facility] Work Phone: 05-03-2022 04:19-0400 Respiratory rate 18 /min [facility] Work Phone: 05-03-2022 04:19-0400 SaO2% (BldA) [Mass fraction] 98 % [facility] Work Phone: 05-03-2022 04:19-0400 Systolic blood pressure 134 mm[Hg] [facility] Work Phone: 05-03-2022 03:11-0400 Body height 154.94 cm [facility] Work Phone: 05-03-2022 03:11-0400 Body mass index (BMI) [Ratio] 35.2 kg/m2 [facility] Work Phone: 05-03-2022 03:11-0400 Body temperature 97.3 [degF] [facility] Work Phone: 05-03-2022 03:11-0400 Body weight 84.6 kg [facility] Work Phone: 03-11-2022 11:08-0400 Body weight 80.74 kg Annette Older COMPUTER SUPPORT SPECIALIST.BEER COOLER Work Phone: [facility] 03-11-2022 11:08-0400 Diastolic blood pressure 86 mm[Hg] Annette Older COMPUTER SUPPORT SPECIALIST.BEER COOLER Work Phone: [facility] 03-11-2022 11:08-0400 Heart rate 110 /min Annette Older COMPUTER SUPPORT SPECIALIST.BEER COOLER Work Phone: [facility] 03-11-2022 11:08-0400 Respiratory rate 18 /min Annette Older COMPUTER SUPPORT SPECIALIST.BEER COOLER Work Phone: [facility] 03-11-2022 11:08-0400 Systolic blood pressure 132 mm[Hg] Annette Older COMPUTER SUPPORT SPECIALIST.BEER COOLER Work Phone: [facility] 02-16-2022 18:53-0400 Body height 152.4 cm [facility] Work Phone: 02-16-2022 18:53-0400 Body mass index (BMI) [Ratio] 35.2 kg/m2 [facility] Work Phone: 02-16-2022 18:53-0400 Body temperature 97.8 [degF] [facility] Work Phone: 02-16-2022 18:53-0400 Body weight 81.64 kg [facility] Work Phone: 02-16-2022 18:53-0400 Diastolic blood pressure 65 mm[Hg] [facility] Work Phone: 02-16-2022 18:53-0400 Heart rate 89 /min [facility] Work Phone: 02-16-2022 18:53-0400 Respiratory rate 16 /min [facility] Work Phone: 02-16-2022 18:53-0400 SaO2% (BldA) [Mass fraction] 96 % [facility] Work Phone: 02-16-2022 18:53-0400 Systolic blood pressure 125 mm[Hg] [facility] Work Phone: 12-22-2021 14:06-0400 Body weight 80.74 kg Annette Older COMPUTER SUPPORT SPECIALIST.BEER COOLER Work Phone: [facility] 12-22-2021 14:06-0400 Diastolic blood pressure 82 mm[Hg] Annette Older COMPUTER SUPPORT SPECIALIST.BEER COOLER Work Phone: [facility] 12-22-2021 14:06-0400 Heart rate 84 /min Annette Older COMPUTER SUPPORT SPECIALIST.BEER COOLER Work Phone: [facility] 12-22-2021 14:06-0400 Respiratory rate 18 /min Annette Older COMPUTER SUPPORT SPECIALIST.BEER COOLER Work Phone: [facility] 12-22-2021 14:06-0400 Systolic blood pressure 146 mm[Hg] Annette Older COMPUTER SUPPORT SPECIALIST.BEER COOLER Work Phone: [facility] Encounters Encounter Date Encounter Type Care Provider Facility Start: 03-16-2025 ambulatory Lora Parisi ty:[facility] Start: 03-15-2025 End: 03-16-2025 Telephone encounter Yenifer Gonsalez MD Work Phone: [facility] Comment on above: Insurance Authorizat ion Start: 03-13-2025 End: 03-13-2025 ambulatory YENIFER GONSALEZ Facility:[facility] Start: 03-12-2025 End: 03-12-2025 ambulatory YENIFER GONSALEZ Facility:[facility] Start: 03-05-2025 Non-patient / Non-visit Lora DAVIS -[facility] Work Phone: Start: 03-05-2025 ambulatory Lora Oliver NP Facili ty:[facility] Start: 03-02-2025 Non-patient / Non-visit Dr. Pieter leslie MD -[facility] Start: 03-02-2025 End: 03-02-[address] Yenifer Gonsalez MD Work Phone: [facility] Work Phone: Start: 03-02-2025 End: 03-02-2025 Patient encounter procedure Lora Oliver CBX OPERATOR-C -Cardiovascular Services Work Phone: Start: 03-02-2025 End: 03-02-2025 ambulatory Lora Oliver CBX OPERATOR Facility:[facility] Start: 02-26-2025 ambulatory Lora Oliver CBX OPERATOR Facili ty:[facility] Start: 02-26-2025 Registered Referred Lora Oliver CBX OPERATOR -C -[facility] Services Work Phone: Start: 02-22-2025 End: 02-22-2025 Refill Yenifer Gonsalez MD Work Phone: [facility] Comment on above: Refill Request; Medi cation Problem (Out of some of the medications) Start: 02-16-2025 End: 02-16-2025 Patient encounter procedure Lora Oliver NP-C -[facility] Work Phone: Start: 02-16-2025 End: 02-16-2025 ambulatory Lora Oliver CBX OPERATOR [place] [place]: 01-31-2025 End: 01-31-[address] Adebayo De La Cruz MD -Physical Therapy Work Phone: Start: 01-31-2025 End: 01-31-[address] Yenifer Gonsalez MD Work Phone: [facility] Work Phone: Start: 01-30-2025 End: 01-30-2025 Office outpatient visit 25 minutes Christa Cabrera APRN.ENVIRONMENTAL ATTORNEY Work Phone: [facility] Comment on above: Syncope, unspecified syncope type (Primary Dx); TIA (transient ischemic attack); Chronic atrial fibrillation (HCC); Controlled type 2 diabetes mellitus without complication, without long-term current use of insulin (HCC) Start: 01-30-2025 End: 01-30-[address] [facility] Facility:[facility] Start: 01-24-2025 End: 01-24-2025 Clementine Gonsalez MD Work Phone: [facility] [place] Comment on above: Refill Request Start: 01-23-2025 ambulatory Aayush Candelario Fa cility:[facility] Start: 01-23-2025 Non-patient / Non-visit Dr. Emy Candelario MD -[facility] Start: 01-22-2025 Non-patient / Non-visit Dr. Pablo shaw MD -[facility] Work Phone: Start: 01-22-2025 End: 01-23-2025 Evaluation and management of inpatient Dr. Pablo Fernandes MD -Progressive Care Unit Work Phone: Start: 01-22-2025 End: 01-23-[address] Yenifer Gonsalez MD Work Phone: [facility] Work Phone: Start: 01-22-2025 End: 01-23-2025 [facility] Start: 01-12-2025 End: 01-12-2025 Emergency department patient visit Dr. Yenifer Gonsalez MD Work Phone: -Emergency Department Work Phone: Start: 01-12-2025 End: 01-18-2025 ambulatory Triny Pickard Clinical Communication Start: 01-12-2025 End: 01-18-2025 Patient encounter procedure Triny Pickard Clinical Communication Start: 11-07-2024 End: 11-07-2024 ambulatory YENIFER GONSALEZ Facility:[facility] Start: 09-28-2024 End: 09-28-2024 Refill Yenifer Gonsalez MD Work Phone: [facility] Comment on above: Refill Request Start: 09-05-2024 End: 09-05-2024 ambulatory YENIFER GONSALEZ Facility:[facility] Start: 09-05-2024 End: 09-05-2024 Patient encounter procedure Yenifer Gonsalez MD Work Phone: [facility] Comment on above: Medicare annual well ness visit, subsequent (Primary Dx); Controlled type 2 diabetes mellitus without complication, without long-term current use of insulin (HCC); Nocturnal leg cramps; Mixed hyperlipidemia; Osteopenia, unspecified location; Irritable bowel syndrome with diarrhea; Encounter for immunization; detention (current) use of anticoagulants; PAF (paroxysmal atrial fibrillation) (HCC); PSVT (paroxysmal supraventricular tachycardia) ([facility]); Encounter for long-term current use of medication; Bilateral hearing loss, unspecified hearing loss type Start: 07-25-2024 End: 08-02-2024 Telephone encounter Yenifer Gonsalez MD Work Phone: [facility] Comment on above: Jim heredia order f orm for CPAP supplies Start: 07-16-2024 End: 07-16-2024 Telephone encounter Juan David Díaz APRN.CNP Work Phone: [facility] Start: 07-13-2024 End: 07-13-2024 ambulatory YENIFER GONSALEZ Facility:[facility] Start: 07-13-2024 End: 07-13-2024 Patient encounter procedure Ryanne Garcia COMPUTER SUPPORT SPECIALIST.BEER COOLER Work Phone: [facility] Comment on above: Urinary frequency (P rimary Dx) Start: 06-14-2024 End: 06-14-2024 ambulatory Athol Suleman Facility:[facility] Start: 05-19-2024 End: 05-19-2024 Subsequent hospital visit by physician [facility] Work Phone: Radiology Comment on above: Injury of right wris t, initial encounter [S69.91XA] Start: 05-19-2024 End: 05-19-2024 ambulatory Didi Collins RN NURSE MATERIAL YARD CLERK Comment on above: Wrist Pain Start: 05-19-2024 End: 05-19-2024 Office outpatient visit 15 minutes Christa Cabrera APRN.ENVIRONMENTAL ATTORNEY Work Phone: [facility] Comment on above: Injury of right wris t, initial encounter (Primary Dx); Acute pain of right wrist Start: 03-17-2024 Refill Yenifer montelongo MD Work Phone: [facility] Comment on above: Refill Request Start: 03-02-2024 Telephone encounter Yenifer pires MD Work Phone: [facility] Comment on above: Forms/letter (Handchauncey ap placard letter ) Start: 02-28-2024 End: 02-28-2024 Office outpatient visit 25 minutes Yenifer Gonsalez MD Work Phone: [facility] Comment on above: Controlled type 2 di abetes mellitus without complication, without long-term current use of insulin (HCC) (Primary Dx); Recurrent major depressive disorder, in partial remission (HCC); PAF (paroxysmal atrial fibrillation) (HCC); Ascending aortic aneurysm, unspecified whether ruptured (HCC); PSVT (paroxysmal supraventricular tachycardia) (HCC); Lichen sclerosus; Generalized anxiety disorder Start: 02-09-2024 Refill Yenifer montelongo MD Work Phone: [facility] Comment on above: error Start: 12-24-2023 End: 12-24-2023 Office outpatient visit 25 minutes Yenifer Gonsalez MD Work Phone: [facility] Comment on above: Controlled type 2 di abetes mellitus without complication, without long-term current use of insulin (HCC) (Primary Dx); Generalized anxiety disorder; Mixed hyperlipidemia; Essential tremor; Fatigue, unspecified type; Asymptomatic postmenopausal status; Encounter for long-term current use of medication Start: 12-09-2023 Refill Yenifer montelongo MD Work Phone: [facility] Comment on above: Refill Request Start: 11-10-2023 Refill Yenifer montelongo MD Work Phone: [facility] Comment on above: Refill Request Start: 10-07-2023 ambulatory Yocasta Victor ma Clinical Communication Start: 10-07-2023 Patient encounter procedure Yocasta Talavera RN [facility] Clinical Communication Start: 09-14-2023 End: 09-15-2023 ambulatory TRINY CUTLER COMPUTER SUPPORT SPECIALIST-BEER COOLER Facility:[facility] Start: 09-14-2023 End: 09-15-[address] YUNIOR ELAINE MD [facility] Start: 09-06-2023 Telephone encounter Yenifer pires MD Work Phone: [facility] Comment on above: surgical clearace fo rm Start: 08-30-2023 Telephone encounter Yenifer pires MD Work Phone: [facility] Comment on above: Medication Clarifica tion Start: 08-30-2023 End: 08-30-2023 Patient encounter procedure Yenifer Gonsalez MD Work Phone: [facility] Comment on above: Preop exam for inter nal medicine (Primary Dx); Controlled type 2 diabetes mellitus without complication, without long-term current use of insulin (HCC); PAF (paroxysmal atrial fibrillation) (HCC); Mixed hyperlipidemia; Encounter for immunization Start: 08-30-2023 End: 08-30-2023 Patient encounter status Yenifer Gonsalez MD Work Phone: [facility] Work Phone: Start: 08-18-2023 End: 08-19-[address] YENIFER GONSALEZ MD Facility:[facility] Start: 08-18-2023 End: 08-19-[address] YENIFER GONSALEZ MD Facility:[facility] Start: 08-18-2023 End: 08-18-[address] YUNIOR ELAINE MD [facility] Start: 08-18-2023 End: 08-18-[address] YUNIOR ELAINE MD [facility] Start: 08-17-2023 Telephone encounter Michelle Boggs COMPUTER SUPPORT SPECIALIST.BEER COOLER Work Phone: Neurology [facility] Start: 07-23-2023 Refill Dione Francisco COMPUTER SUPPORT SPECIALIST.BEER COOLER Work Phone: [facility] Comment on above: Refill Request Start: 07-14-2023 Non-patient / Non-visit Dr. Kin Gonsalez Work Phone: [facility] Start: 07-12-2023 End: 07-12-[address] Yenifer Gonsalez Work Phone: [facility] Work Phone: Start: 07-12-2023 End: 07-12-[address] Yenifer Gonsalez Work Phone: [facility] Work Phone: Start: 07-06-2023 End: 07-06-[address] Yenifer Gonsalez Work Phone: [facility] Work Phone: Start: 07-06-2023 End: 07-06-[address] Yenifer Gonsalez Work Phone: [facility] Work Phone: Start: 06-23-2023 End: 06-23-2023 Admission to same day surgery center Dr. Yenifer Gonsalez Work Phone: [facility] Start: 06-23-2023 End: 06-23-[address] Yenifer Gonsalez Work Phone: [facility] Work Phone: Start: 06-04-2023 ambulatory Ami M Wilson DO Work Phone: [facility] Comment on above: Encounter for medica l assessment (Primary Dx) Start: 06-04-2023 Patient encounter status Ami M Wilson DO Work Phone: [facility] Work Phone: Start: 06-04-2023 Telemedicine consult ation with patient Amber Wilson DO Work Phone: MAIN VIRTUAL VISIT Start: 06-02-2023 ambulatory Yenifer montelongo MD Work Phone: [facility] Comment on above: Diarrhea Start: 05-28-2023 End: 05-28-2023 Patient encounter procedure Michelle Pacheco APRN.BEER COOLER Work Phone: Neurology Comment on above: Cerebrovascular acci dent (CVA), unspecified mechanism (HCC) (Primary Dx); Gait instability; Balance disorder; Spinal stenosis of lumbar region, unspecified whether neurogenic claudication present; Vertigo; Pain of right upper extremity; Pain of left upper extremity; Tremor Start: 05-17-2023 End: 05-17-2023 Patient encounter procedure Rhianna Moon PA-C Work Phone: Orthopaedics Comment on above: Primary osteoarthrit is of both knees (Primary Dx) Start: 05-03-2023 Refill Yenifer montelongo MD Work Phone: [facility] Comment on above: Refill Request Patient Update Start: 04-02-2023 End: 04-02-[address] Yenifer Gonsalez Work Phone: [facility]-Physical Therapy Work Phone: Start: 02-26-2023 End: 02-26-2023 Office outpatient visit 25 minutes Yenifer Gonsalez MD Work Phone: [facility] Comment on above: Vertigo (Primary Dx) ; Gait instability; Bilateral primary osteoarthritis of knee; PSVT (paroxysmal supraventricular tachycardia) (HCC) Start: 02-04-2023 End: 02-04-2023 Patient encounter procedure Michelle Pacheco APRN.BEER COOLER Work Phone: Neurology Comment on above: Cerebrovascular acci dent (CVA), unspecified mechanism (HCC) (Primary Dx); Gait instability; Spinal stenosis of lumbar region, unspecified whether neurogenic claudication present; Vertigo; Balance disorder; Tremor; Frequent falls; Pain of right upper extremity Start: 01-26-2023 End: 01-26-2023 Patient encounter dominic Francisco APRN.CNP Work Phone: [facility] Comment on above: Osteopenia, unspecif ied location (Primary Dx); Cerebrovascular accident (CVA), unspecified mechanism (HCC); Chronic atrial fibrillation (HCC); Ascending aortic aneurysm, unspecified whether ruptured (HCC); Controlled type 2 diabetes mellitus without complication, without long-term current use of insulin (HCC); PSVT (paroxysmal supraventricular tachycardia) (HCC); Generalized anxiety disorder; Recurrent major depressive disorder, in partial remission (HCC); Abnormality of gait; Falling episodes; Encounter for therapeutic drug monitoring Start: 01-08-2023 End: 01-08-2023 Subsequent hospital visit by physician Shahida [facility] Gu[facility]ro Work Phone: Radiology Comment on above: Primary osteoarthrit is of both knees [M17.0] Start: 01-04-2023 Telephone encounter Michelle Boggs APRN.CNP Work Phone: Neurology Comment on above: Appointment Start: 01-02-2023 End: 01-02-2023 Subsequent hospital visit by physician [facility] Work Phone: Radiology Comment on above: Chronic pain of both shoulders [M25.511, G89.29, M25.512] Start: 01-02-2023 End: 01-02-2023 Office outpatient visit 40 minutes Yenifer Gonsalez MD Work Phone: [facility] [place] Comment on above: Cerebrovascular acci dent (CVA), unspecified mechanism (HCC) (Primary Dx); PSVT (paroxysmal supraventricular tachycardia) (HCC); Chronic pain of both shoulders; Bilateral primary osteoarthritis of knee; Osteopenia, unspecified location; Mixed hyperlipidemia Start: 12-25-2022 Telephone encounter Yenifer pires MD Work Phone: [facility] Comment on above: Home health care Start: 12-23-2022 Telephone encounter Yenifer pires MD Work Phone: [facility] [place] Comment on above: [facility] HH, PT plan of c are (No call back needed/) Start: 12-22-2022 ambulatory Yenifer montelongo MD Work Phone: [facility] Start: 12-22-2022 Telephone encounter Yenifer pires MD Work Phone: [facility] [place] Comment on above: home health plan of care Patient Update Transition Of Care Start: 12-21-2022 Refill Yenifer montelongo MD Work Phone: [facility] [place] Comment on above: Refill Request Start: 12-19-2022 Non-patient / Non-visit Dr. Kin Gonsalez Work Phone: [facility] Inpatient Physicians Start: 12-19-2022 Non-patient / Non-visit Dr. Kin Gonsalez Work Phone: [facility] Start: 12-18-2022 Telephone encounter Yenifer pires MD Work Phone: [facility] [place] Comment on above: Orders Start: 12-18-2022 Non-patient / Non-visit Dr. Kin Gonsalez Work Phone: [facility]patient [facility] Start: 12-17-2022 Non-patient / Non-visit Dr. Kin Gonsalez Work Phone: [facility] Start: 12-16-2022 End: 12-19-2022 Evaluation and management of inpatient [facility]-Intensive Care Unit Start: 12-15-2022 Refill Yenifer montelongo MD Work Phone: Internal [facility] Comment on above: Refill Request Start: 11-20-2022 End: 11-20-2022 Telemedicine consultation with patient Mariangel Arteaga PA-C Work Phone: [facility] Start: 11-20-2022 End: 11-20-2022 Telephone encounter Mariangel Arteaga PA-C Work Phone: [facility] Comment on above: Orders Cervical disc disord er with radiculopathy (Primary Dx); Spinal stenosis in cervical region Start: 11-07-2022 ambulatory Deena Escudero RN NURS E MATERIAL YARD CLERK Comment on above: Musculoskeletal Prob anibal Start: 11-04-2022 End: 11-04-2022 ambulatory Triny Vegas PT Work Phone: [facility] Physical Therapy Comment on above: Compression fracture of L1 vertebra with routine healing, subsequent encounter; Lumbar radiculopathy; Chronic bilateral low back pain with bilateral sciatica Start: 11-03-2022 End: 11-03-2022 Subsequent hospital visit by physician [facility] (I-Stat/1.5t) Work Phone: Radiology Comment on above: Thoracic spondylosis without myelopathy [M47.814] Start: 10-05-2022 ambulatory Juan David Tilley [facility] Comment on above: Population Health Na vigation Outreach ([place] [facility]) Start: 10-05-2022 Telephone encounter Yenifer pires MD Work Phone: [facility] [place] Comment on above: Results Start: 10-02-2022 End: 10-02-2022 Patient encounter procedure Pina Brothers OD Work Phone: Ophthalmology Comment on above: Dry eye syndrome of both eyes (Primary Dx); Squamous blepharitis of upper and lower eyelids of both eyes; Type 2 diabetes mellitus without retinopathy (HCC); Lesion of eyelid of both eyes; Pseudophakia of both eyes; PCO (posterior capsular opacification), bilateral Start: 09-04-2022 End: 09-04-2022 ambulatory Mariangel Arteaga PA-C Work Phone: [facility] Comment on above: Spinal stenosis of c ervical region (Primary Dx); Lumbar disc disease; Cervical spondylosis with myelopathy; Thoracic spondylosis without myelopathy; Spinal stenosis, lumbar region with neurogenic claudication Start: 09-04-2022 End: 09-04-2022 Telemedicine consultation with patient Mariangel Arteaga PA-C Work Phone: [facility] Start: 08-28-2022 End: 08-28-2022 Office outpatient visit 25 minutes Yenifer Gonsalez MD Work Phone: [facility] [place] Comment on above: Controlled type 2 di abetes mellitus without complication, without long-term current use of insulin (HCC) (Primary Dx); Herpes simplex vulvovaginitis; Mixed hyperlipidemia; Eyelid pain of both eyes; Dry eye syndrome of both eyes; Compression fracture of L1 vertebra with routine healing, subsequent encounter; Lumbar radiculopathy; Chronic bilateral low back pain with bilateral sciatica; Abnormal urine odor; Urinary frequency; Urinary urgency Start: 08-28-2022 Refill Yenifer montelongo MD Work Phone: [facility] [place] Comment on above: Refill Request Start: 07-23-2022 End: 07-23-2022 OT/PT/Speech Visit Ryanne Kaba PT [facility] Physical Therapy Comment on above: Frequent falls (Prim mayco Dx); Spinal stenosis of lumbar region, unspecified whether neurogenic claudication present; Vertigo; Gait instability; Balance disorder Start: 07-16-2022 End: 07-16-2022 Orders Only Baldemar Bush APRN.CNP Work Phone: Neurology Comment on above: Lumbar disc disease (Primary Dx) Spinal stenosis of l umbar region, unspecified whether neurogenic claudication present [M48.061] Start: 07-15-2022 End: 07-15-2022 OT/PT/Speech Visit Ryanne Kaba PT [facility] Physical Therapy Comment on above: Frequent falls (Prim mayco Dx); Spinal stenosis of lumbar region, unspecified whether neurogenic claudication present; Vertigo; Gait instability; Balance disorder Start: 06-26-2022 [facility] Comment on above: Population Health Na vigation Outreach ([employer]) Start: 06-24-2022 End: 06-24-2022 Patient encounter procedure Annette Pinto APRN.CNP Work Phone: [facility] [place] Comment on above: Controlled type 2 di abetes mellitus without complication, without long-term current use of insulin (HCC) (Primary Dx); Gait instability; Compression fracture of L1 vertebra with routine healing, subsequent encounter; Obesity, Class I, BMI 30-34.9; ELISHA on CPAP; Generalized anxiety disorder; PSVT (paroxysmal supraventricular tachycardia) ([facility]); Encounter for immunization Start: 06-17-2022 End: 06-17-2022 [facility] Michelle Pacheco APRN.CNP Work Phone: Neurology Comment on above: Gait instability (Pr imary Dx); Spinal stenosis of lumbar region, unspecified whether neurogenic claudication present; Vertigo; Balance disorder; Tremor; Frequent falls Start: 06-11-2022 ambulatory [facility] Work Phone: [facility] Comment on above: Allied Health Visit (Medication Adherence Outreach) Start: 06-02-2022 End: 06-02-2022 Subsequent hospital visit by physician [facility] (I-Stat/1.5t) Work Phone: Radiology Comment on above: Transient cerebral i schemia, unspecified type [G45.9] Start: 05-18-2022 Telephone encounter Michelle Boggs APRN.CNP Work Phone: Neurology Comment on above: Patient Question Patient Update; Appo intment Start: 05-18-2022 End: 05-18-2022 ambulatory [facility] Work Phone: Start: 05-18-2022 End: 05-18-2022 Discharged Recurring [facility]-Physical Therapy Start: 05-14-2022 Telephone encounter Michelle Boggs APRN.CNP Work Phone: [facility] [place] Comment on above: Orders (MRI) Start: 05-13-2022 ambulatory Michelle palmer APRN.CNP Work Phone: Neurology Comment on above: MRI Start: 05-11-2022 Refill Yenifer montelongo MD Work Phone: [facility] [place] Comment on above: Refill Request Start: 05-07-2022 End: 05-07-2022 Subsequent hospital visit by physician [facility] Work Phone: Radiology Comment on above: Gait instability [R2 6.81] Start: 05-03-2022 End: 05-03-2022 Emergency department patient visit [facility]-Emergency Department Start: 05-01-2022 ambulatory Lela Crespo [facility] Work Phone: [facility] Comment on above: Allied Health Visit (Medication Adherence Outreach) Start: 04-27-2022 ambulatory Yenifer montelongo MD Work Phone: [facility] [employer] Comment on above: Allied Health Visit (Medication Adherence Outreach) Start: 03-11-2022 End: 03-11-2022 Subsequent hospital visit by physician Diagnostic Mamm[facility] Comment on above: Breast pain [N64.4] Start: 03-11-2022 End: 03-11-2022 Patient encounter procedure Annette Older COMPUTER SUPPORT SPECIALIST.BEER COOLER Work Phone: [facility] Comment on above: Balance disorder (Pr imary Dx); Gait instability; Tremor; Frequent falls Start: 03-04-2022 Telephone encounter Yenifer pires MD Work Phone: [facility] [place] Comment on above: Difficulty Walking Start: 02-16-2022 End: 02-16-2022 [facility] Start: 01-29-2022 Telephone encounter Annette Older COMPUTER SUPPORT SPECIALIST.BEER COOLER Work Phone: [facility] [place] Comment on above: Orders (replace her CPAP machine ) Orders Start: 01-28-2022 Telephone encounter Yenifer pires MD Work Phone: [facility] [place] Comment on above: Insurance Authorizat ion (for prescription) Start: 01-21-2022 ambulatory Annette Older COMPUTER SUPPORT SPECIALIST .BEER COOLER Work Phone: [facility] [place] Comment on above: osteopenia Start: 01-21-2022 Telephone encounter Annette Older COMPUTER SUPPORT SPECIALIST.BEER COOLER Work Phone: [facility] [place] Comment on above: Return Provider Call Start: 01-20-2022 Documentation procedure Mammog merissa Coordinator [facility] Start: 01-20-2022 Letter encounter Mammography Coordinator [facility] Department Start: 01-20-2022 Telephone encounter Yenifer pires MD Work Phone: [facility] [place] Comment on above: Bone density order Refill Request Start: 01-14-2022 Refill Yenifer montelongo MD Work Phone: [facility] Comment on above: Prescription Refills Start: 12-26-2021 ambulatory Annette Pinto APRN .BEER COOLER Work Phone: [facility] [place] Comment on above: lab results Start: 12-26-2021 E-mail encounter fro m caregiver Annette Pinto APRN.BEER COOLER Work Phone: [facility] Start: 12-26-2021 Telephone encounter Yenifer pires MD Work Phone: [facility] Comment on above: Allied Health Visit (Medication Adherence Outreach) Start: 12-22-2021 End: 12-22-2021 Patient encounter procedure Annette Pinto APRN.BEER COOLER Work Phone: [facility] [place] Comment on above: Generalized anxiety disorder (Primary Dx); Excessive sweating; Bilateral leg pain; Controlled type 2 diabetes mellitus without complication, without long-term current use of insulin (HCC); Pure hypercholesterolemia; Lichen sclerosus; Encounter for screening mammogram for breast cancer; Colon cancer screening; Encounter for screening for osteoporosis; Asymptomatic postmenopausal status; Vitamin D deficiency; Obesity, Class I, BMI 30-34.9 Start: 12-27-2020 End: 12-27-2020 Subsequent hospital visit by physician [facility] Work Phone: Radiology Comment on above: Cough [R05] Start: 10-23-2020 End: 10-23-2020 Subsequent hospital visit by physician [facility] Work Phone: Radiology Comment on above: Cough [R05] Procedures Date Procedure Procedure Detail Performing Clinician Start: 01-23-2025 MRI of brain without contrast Dr. Yenifer Gonsalez MD Work Phone: Start: 01-23-[address] Yenifer Gonsalez MD Work Phone: Start: 01-22-2025 CT angiography of he ad and neck Dr. Yenifer Gonsalez MD Work Phone: Start: 01-22-2025 CT of head without contrast Dr. Yenifer Gonsalez MD Work Phone: Start: 01-12-2025 CT of head without contrast Dr. Yenifer Gonsalez MD Work Phone: Start: 07-13-2024 Urnls dip stick/tabl et rgnt auto w/o microscopy Ryanne Garcia COMPUTER SUPPORT SPECIALIST.BEER COOLER Work Phone: Start: 05-19-2024 Radex wrist complete minimum 3 views Christa Cabrera COMPUTER SUPPORT SPECIALIST.ENVIRONMENTAL ATTORNEY Work Phone: Start: 09-14-2023 Total replacement of left knee joint DR YUNIOR ELAINE MD Start: 08-30-2023 INFLUENZA VACCINE, P RSV FREE, AGE 65+ YR, HIGH DOSE, QUADRIVALENT (FLUZONE HIGH-DOSE) Yenifer Gonsalez MD Work Phone: Start: 08-30-2023 [employer] COVI D-19 VACCINE ( SEASON) AGE 12+ YR Yenifer Gonsalez MD Work Phone: Start: 07-12-2023 Cardiovascular stres s test using pharmacologic stress agent Dr. Yenifer Gonsalez Work Phone: Start: 07-06-2023 CT angiography of ch est with contrast Dr. Yenifer Gonsalez Work Phone: Start: 07-06-2023 CT of abdominal vasc ular structures Dr. Yenifer Gonsalez Work Phone: Start: 05-17-2023 Arthrocentesis aspir &/inj major jt/bursa w/o us Rhianna Moon PA-C Work Phone: Start: 01-08-2023 Radiologic exam knee complete 4/more views Rhianna Moon PA-C Work Phone: Start: 01-02-2023 Radex shoulder compl ete minimum 2 views Yenifer Gonsalez MD Work Phone: Start: 03-23-2023 MRI of brain without contrast Dr. Yenifer Gonsalez Work Phone: Start: 12-16-2022 Plain chest X-ray Start: 12-16-2022 CT angiography of he ad and neck Start: 12-16-2022 CT of head without contrast Start: 11-03-2022 Mri spinal canal cer vical w/o contrast matrl Mariangel Arteaga PACharleneC Work Phone: Start: 07-16-2022 Mri spinal canal lum bar w/o contrast material Michelle Sylvesterhauskeshav COMPUTER SUPPORT SPECIALIST.BEER COOLER Work Phone: Start: 06-24-2022 INFLUENZA SEASONAL QUADRIVALENT HIGH DOSE AGE 65+ Annette Older COMPUTER SUPPORT SPECIALIST.BEER COOLER Work Phone: Start: 06-02-2022 Mri brain brain stem w/o contrast material Michelle Daelidiahausen COMPUTER SUPPORT SPECIALIST.BEER COOLER Work Phone: Start: 05-07-2022 Radex spine lumbosac ral 2/3 views Michelle Pacheco COMPUTER SUPPORT SPECIALIST.BEER COOLER Work Phone: Start: 05-03-2022 Radiologic examinati on of knee Start: 03-11-2022 Diagnostic mammograp hy computer-aided detcj uni Annette Older COMPUTER SUPPORT SPECIALIST.BEER COOLER Work Phone: Start: 02-16-2022 CT of head without contrast Start: 01-20-2022 Mammography Yenifer blair MD Work Phone: Start: 01-02-2021 Mammography Annette Older COMPUTER SUPPORT SPECIALIST.BEER COOLER Work Phone: Start: 12-27-2020 Radiologic exam ches t 2 views Vanesa Be PA-C Work Phone: Start: 10-23-2020 Radiologic exam ches t 2 views Annette Tavares COMPUTER SUPPORT SPECIALIST.BEER COOLER Work Phone: Start: 03-24-2006 Colonoscopy Annette Older COMPUTER SUPPORT SPECIALIST.BEER COOLER Work Phone: Hysterectomy DR YUNIOR Will MD Lumpectomy of left breast DR YUNIOR ELAINE MD Splenectomy DR YUNIOR Will MD Plan of Treatment Date Care Activity Detail Author Start: 03-19-2026 End: 03-19-2026 Patient encounter procedure 03/19/2026 1:20 PM EDT Office Visit [facility] [address] [place], [place] [id number] Yenifer Gonsalez MD [address] [place], [place] [id number] Medicare wellness [facility] Comment on above: Medicare wellness Start: 03-13-2026 Annual PCP Team Vice President Digital Strategist kayla Disease Visit Annual PCP Team Chronic Disease Visit [facility] Start: 03-13-2026 Diabetic foot examination Diabetic F oot Exam [facility] Start: 03-12-2026 Hepatitis B screening Urine Al bumin:Creatinine Ratio [facility] Start: 03-12-2026 Hepatitis B surface antibody level LDL Cholesterol [facility] Start: 12-02-2025 COLOGUARD (FIT-DNA) COLOGUARD (FIT-D NA) [facility] Start: 11-08-2025 Hepatitis B screening Urine Al bumin:Creatinine Ratio [facility] Start: 11-07-2025 Hepatitis B surface antibody level LDL Cholesterol [facility] Start: 09-12-2025 End: 09-12-2025 Patient encounter procedure 09/12/2025 2:00 PM EST Office Visit [facility] [address] [place], [place] [phone] Yenifer Gonsalez MD [address] [place], [place] [id number] 6 month follow up [facility] Comment on above: 6 month follow up Start: 09-11-2025 Hemoglobin A1c measurement HbA1C [facility] Start: 09-05-2025 Annual PCP Team Vice President Digital Strategist kayla Disease Visit Annual PCP Team Chronic Disease Visit [facility] Start: 09-05-2025 Covid-19 Vaccine ( season) Covid-19 Vaccine () [facility] Comment on above: Postponed from 05/28 (Declined at this time) Start: 05-07-2025 Hemoglobin A1c measurement HbA1C [facility] Start: 04-05-2025 Glaucoma screening Dilated Retinal E xam [facility] Start: 03-27-2025 End: 03-27-2025 Patient encounter procedure 03/27/2025 1:30 PM EDT Office Visit Neurology [address] [address] Michelle Pacheco APRN.BEER COOLER [address] [address] Follow up-60 minute Neurology Comment on above: Follow up-60 minute Start: 03-13-2025 End: 03-13-2025 Patient encounter procedure 03/13/2025 3:00 PM EDT Office Visit [facility] [address] [place] [address] Yenifer Gonsalez MD [address] [place] [address] Medicare Wellness [facility] Comment on above: Medicare Wellness Start: 03-09-2025 End: 03-09-2025 Patient encounter procedure 03/09/2025 11:00 AM EDT Office Visit Neurology [address] [address] Michelle Pacheco APRN.BEER COOLER [address] [address] Follow up Neurology Comment on above: Follow up Start: 02-27-2025 Annual PCP Team Vice President Digital Strategist kayla Disease Visit Annual PCP Team Chronic Disease Visit [facility] Start: 02-27-2025 Hepatitis B screening Urine Al bumin:Creatinine Ratio [facility] Start: 01-30-2025 End: 01-30-2025 Patient encounter procedure 01/30/2025 10:20 AM EDT Office Visit [facility] [address] [place] [address] Christa Cabrera APRN.ENVIRONMENTAL ATTORNEY [address] [place], [place] [id number] [facility] f/u syncope [facility] Comment on above: [facility] f/u syncope Start: 01-23-2025 Patient discharge [facility] Start: 01-23-2025 Telemedicine consult ation with patient [facility] Start: 01-22-2025 End: 01-23-2025 Referral to service [facility] Start: 01-22-2025 Following clinical pathway protocol [facility] Start: 01-22-2025 Aspiration precautions [facility] Start: 01-22-2025 Assessment of risk o f venous thromboembolism [facility] Start: 01-22-2025 Cardiac monitoring [facility] Start: 01-22-2025 Catheterization of vein [facility] Start: 01-22-2025 Consultation [facility] Start: 01-22-2025 Continuous pulse oximetry [facility] Start: 01-22-2025 Elevation of head of bed [facility] Start: 01-22-2025 Exercises [facility] Start: 01-22-2025 Insertion of cathete r into peripheral vein [facility] Start: 01-22-2025 Measuring intake and output [facility] Start: 01-22-2025 Notification of physician [facility] Start: 01-22-2025 Oxygen therapy [facility] Start: 01-22-2025 Patient referral to dietitian [facility] Start: 01-22-2025 Providing care accor ding to standard [facility] Start: 01-22-2025 Provision of activit y privileges [facility] Start: 01-22-2025 Referral to occupati onal therapist [facility] Start: 01-22-2025 Speech therapy assessment [facility] Start: 01-22-2025 Tobacco use cessatio n education [facility] Start: 01-22-2025 End: 01-22-2025 [facility] Start: 01-22-2025 Vital signs measurements [facility] Start: 01-22-2025 MRI of brain without contrast Brain without Contrast [facility] Start: 01-22-2025 Verification routine [facility] Start: 01-22-2025 Admission procedure [facility] Start: 01-22-2025 Hospital admission, emergency, from emergency room, medical nature [facility] Start: 01-22-2025 Oxygen therapy [facility] Start: 01-22-2025 End: 01-22-2025 [facility] Start: 01-12-2025 [facility] Start: 12-23-2024 Annual PCP Team Vice President Digital Strategist kayla Disease Visit Annual PCP Team Chronic Disease Visit [facility] Start: 09-27-2024 Advance Directive Discussion Advance Directive Discussion [facility] Start: 09-05-2024 End: 09-05-2024 Patient encounter procedure 09/05/2024 5:20 PM EST Office Visit [facility] [address] [place], [place] [phone] Yenifer Gonsalez MD [address] [place], [place] [phone] Yearly [facility] Comment on above: Yearly Start: 08-30-2024 Annual PCP Team Vice President Digital Strategist kayla Disease Visit Annual PCP Team Chronic Disease Visit [facility] Start: 08-30-2024 Hepatitis B screening Urine Al bumin:Creatinine Ratio [facility] Start: 08-30-2024 Hepatitis B surface antibody level LDL Cholesterol [facility] Start: 08-30-2024 RSV Vaccine (1 - 1-d ose 60+ series) RSV Vaccine (1 - 1-dose 60+ series) [facility] Comment on above: Postponed from 06/16 (Declined at this time) Start: 08-30-2024 RSV Vaccine (1 - 1-d ose 75+ series) RSV Vaccine (1 - 1-dose 75+ series) [facility] Comment on above: Postponed from 06/16 (Declined at this time) Start: 08-30-2024 Shingrix Vaccine (1 of 2) Ramsey grix Vaccine (1 of 2) [facility] Comment on above: Postponed from 06/16 (Declined at this time) Start: 08-30-2024 Urine microalbumin profile DTaP,Tdap,Td Vaccine (1 - Tdap) [facility] Comment on above: Postponed from 06/16 (Declined at this time) Start: 08-29-2024 Hemoglobin A1c measurement HbA1C [facility] Start: 05-28-2024 Covid-19 Vaccine ( season) Covid-19 Vaccine () [facility] Start: 05-28-2024 Covid-19 Vaccine () Covid-19 Vaccine () [facility] Start: 05-28-2024 Influenza vaccination Influenza Vacc ine (#1) [facility] Start: 02-29-2024 Hemoglobin A1c measurement HbA1C [facility] Start: 02-29-2024 Hemoglobin A1c/Hemoglobin.total in Blood HbA1C [facility] Start: 02-28-2024 End: 02-28-2024 Patient encounter procedure 02/28/2024 1:40 PM EDT Office Visit [facility] [address] [place], [place] [phone] Yenifer Gonsalez MD [address] [place] [phone] february 2024 appt [facility] Comment on above: february 2024 appt Start: 02-27-2024 ANNUAL PCP TEAM MARKET ASSET PROTECTION MANAGER KAYLA DISEASE VISIT ANNUAL PCP TEAM CHRONIC DISEASE VISIT [facility] Start: 02-09-2024 End: 05-10-2024 CBC panel - Blood by Automated count CBC Lab Routine Encounter for long-term current use of medication Expected: 02/09/2024 (Approximate), Expires: 05/10/2024 [facility] Work Phone: Comment on above: Expected: 02/09/2024 (Approximate), Expires: 05/10/2024 Start: 02-09-2024 End: 05-10-2024 Cobalamin (Vitamin B12) [Mass/volume] in Serum or Plasma VITAMIN B12 BLOOD Lab Routine Fatigue, unspecified type Expected: 02/09/2024 (Approximate), Expires: 05/10/2024 [facility] Work Phone: Comment on above: Expected: 02/09/2024 (Approximate), Expires: 05/10/2024 Start: 02-09-2024 End: 05-10-2024 Comprehensive metabolic 2000 panel - Serum or Plasma COMP METABOLIC PANEL Lab Routine Controlled type 2 diabetes mellitus without complication, without long-term current use of insulin (HCC) Encounter for long-term current use of medication Expected: 02/09/2024 (Approximate), Expires: 05/10/2024 [facility] Work Phone: Comment on above: Expected: 02/09/2024 (Approximate), Expires: 05/10/2024 Start: 02-09-2024 End: 05-10-2024 Hemoglobin A1c in Blood HGB A1C Lab Routine Controlled type 2 diabetes mellitus without complication, without long-term current use of insulin (HCC) Encounter for long-term current use of medication Expected: 02/09/2024 (Approximate), Expires: 05/10/2024 [facility] Work Phone: Comment on above: Expected: 02/09/2024 (Approximate), Expires: 05/10/2024 Start: 02-09-2024 End: 05-10-2024 Lipid 1996 panel - Serum or Plasma LIPID PANEL BASIC Lab Routine Mixed hyperlipidemia Encounter for long-term current use of medication Expected: 02/09/2024 (Approximate), Expires: 05/10/2024 [facility] Work Phone: Comment on above: Expected: 02/09/2024 (Approximate), Expires: 05/10/2024 Start: 01-27-2024 ANNUAL PCP TEAM MARKET ASSET PROTECTION MANAGER KAYLA DISEASE VISIT ANNUAL PCP TEAM CHRONIC DISEASE VISIT [facility] Start: 01-03-2024 ANNUAL PCP TEAM MARKET ASSET PROTECTION MANAGER KALYA DISEASE VISIT ANNUAL PCP TEAM CHRONIC DISEASE VISIT [facility] Start: 12-30-2023 Covid-19 Vaccine ( season) Covid-19 Vaccine () [facility] Start: 10-02-2023 Glaucoma screening Dilated Retinal E xam [facility] Start: 10-02-2023 Hepatitis C antibody , confirmatory test DILATED RETINAL EXAM [facility] Start: 09-27-2023 Advance Directive Discussion Advance Directive Discussion [facility] Start: 08-28-2023 ANNUAL PCP TEAM MARKET ASSET PROTECTION MANAGER KAYLA DISEASE VISIT ANNUAL PCP TEAM CHRONIC DISEASE VISIT [facility] Start: 08-28-2023 Hepatitis B surface antibody level LDL CHOLESTEROL [facility] Start: 07-29-2023 End: 09-28-2023 25-hydroxyvitamin D3 [Mass/volume] in Serum or Plasma VITAMIN D 25 HYDROXY Lab Routine Osteopenia, unspecified location Encounter for therapeutic drug monitoring Expected: 07/29/2023, Expires: 09/28/2023 [facility] Work Phone: Comment on above: Expected: 07/29/2023 , Expires: 09/28/2023 Start: 07-29-2023 End: 09-28-2023 ALBUMIN/CREAT RATIO RND UR ALBUMIN/CREAT RATIO RND UR Lab Routine Controlled type 2 diabetes mellitus without complication, without long-term current use of insulin ([facility]) Expected: 07/29/2023, Expires: 09/28/2023 [facility] Work Phone: Comment on above: Expected: 07/29/2023 , Expires: 09/28/2023 Start: 07-29-2023 End: 09-28-2023 CBC panel - Blood by Automated count CBC Lab Routine Encounter for therapeutic drug monitoring Expected: 07/29/2023, Expires: 09/28/2023 [facility] Work Phone: Comment on above: Expected: 07/29/2023 , Expires: 09/28/2023 Start: 07-29-2023 End: 09-28-2023 Comprehensive metabolic 2000 panel - Serum or Plasma COMP METABOLIC PANEL Lab Routine Encounter for therapeutic drug monitoring Expected: 07/29/2023, Expires: 09/28/2023 [facility] Work Phone: Comment on above: Expected: 07/29/2023 , Expires: 09/28/2023 Start: 07-29-2023 End: 09-28-2023 Hemoglobin A1c in Blood HGB A1C Lab Routine Controlled type 2 diabetes mellitus without complication, without long-term current use of insulin ([facility]) Encounter for therapeutic drug monitoring Expected: 07/29/2023, Expires: 09/28/2023 [facility] Work Phone: Comment on above: Expected: 07/29/2023 , Expires: 09/28/2023 Start: 07-29-2023 End: 09-28-2023 Lipid 1996 panel - Serum or Plasma LIPID PANEL BASIC Lab Routine Controlled type 2 diabetes mellitus without complication, without long-term current use of insulin (HCC) Expected: 07/29/2023, Expires: 09/28/2023 [facility] Work Phone: Comment on above: Expected: 07/29/2023 , Expires: 09/28/2023 Start: 06-24-2023 ANNUAL PCP TEAM MARKET ASSET PROTECTION MANAGER KAYLA DISEASE VISIT ANNUAL PCP TEAM CHRONIC DISEASE VISIT [facility] Start: 06-24-2023 COVID-19 VACCINE (4 - Booster for Moderna series) COVID-19 VACCINE (4 - Booster for Moderna series) [facility] Comment on above: Postponed from 11/05 (Declined at this time) Start: 06-24-2023 COVID-19 VACCINE (5 - Booster for Moderna series) COVID-19 VACCINE (5 - Booster for Moderna series) [facility] Comment on above: Postponed from 11/07 (Declined at this time) Start: 06-24-2023 COVID-19 VACCINE (5 - Moderna series) COVID-19 VACCINE (5 - Moderna series) [facility] Comment on above: Postponed from 11/07 (Declined at this time) Start: 06-24-2023 SHINGRIX VACCINE (1 of 2) RAMSEY GRIX VACCINE (1 of 2) [facility] Comment on above: Postponed from 06/16 (Declined at this time) Start: 06-24-2023 Urine microalbumin profile DTAP,TDAP,TD (1 - Tdap) [facility] Comment on above: Postponed from 06/16 (Declined at this time) Start: 05-28-2023 Covid-19 Vaccine ( season) Covid-19 Vaccine ( season) [facility] Start: 05-28-2023 Influenza vaccination [facility] Start: 05-28-2023 End: 07-28-2023 Thyrotropin [Units/volume] in Serum or Plasma TSH BLD Lab Routine Tremor Expected: 05/28/2023, Expires: 07/28/2023 [facility] Work Phone: Comment on above: Expected: 05/28/2023 , Expires: 07/28/2023 Start: 03-11-2023 3 comp foot exam completed DIABETIC FOOT EXAM [facility] Start: 03-11-2023 ANNUAL PCP TEAM MARKET ASSET PROTECTION MANAGER KAYLA DISEASE VISIT ANNUAL PCP TEAM CHRONIC DISEASE VISIT [facility] Start: 03-11-2023 Diabetic foot examination Diabetic F oot Exam [facility] Start: 01-20-[address] [facility] Start: 12-22-2022 ANNUAL PCP TEAM MARKET ASSET PROTECTION MANAGER KAYLA DISEASE VISIT ANNUAL PCP TEAM CHRONIC DISEASE VISIT [facility] Start: 12-22-2022 Hemoglobin A1c/Hemoglobin.total in Blood HBA1C [facility] Start: 12-22-2022 Hepatitis B screening URINE AL BUMIN:CREATININE RATIO [facility] Start: 12-22-2022 Hepatitis B surface antibody level LDL CHOLESTEROL [facility] Start: 12-19-2022 Patient discharge [facility] Start: 12-18-2022 Referral to service [facility] Start: 12-18-2022 Referral to funds transfer clerk [facility] Start: 12-16-2022 Application of intermittent pneumatic compression device [facility] Start: 12-16-2022 Following clinical pathway protocol [facility] Start: 12-16-2022 Aspiration precautions [facility] Start: 12-16-2022 Assessment of risk o f venous thromboembolism [facility] Start: 12-16-2022 Bedrest [facility] Start: 12-16-2022 Cardiac monitoring [facility] Start: 12-16-2022 Care regimes management [facility] Start: 12-16-2022 Catheterization of vein [facility] Start: 12-16-2022 Consultation [facility] Start: 12-16-2022 Elevation of head of bed [facility] Start: 12-16-2022 Exercises [facility] Start: 12-16-2022 Fall prevention [facility] Start: 12-16-[address] anned interventions [facility] Start: 12-16-2022 Inhalation therapy procedure [facility] Start: 12-16-2022 Insertion of cathete r into peripheral vein [facility] Start: 12-16-2022 Measuring intake and output [facility] Start: 12-16-2022 Notification of physician [facility] Start: 12-16-2022 Oxygen therapy [facility] Start: 12-16-2022 Patient referral to dietitian [facility] Start: 12-16-2022 Providing care accor ding to standard [facility] Start: 12-16-2022 Provision of activit y privileges [facility] Start: 12-16-2022 Referral to occupati onal therapist [facility] Start: 12-16-2022 Referral to service [facility] Start: 12-16-2022 Speech therapy assessment [facility] Start: 12-16-2022 Tobacco use cessatio n education [facility] Start: 12-16-2022 Vital signs measurements [facility] Start: 12-16-2022 [facility] Start: 12-16-2022 Bleeding precautions [facility] Start: 12-16-2022 Verification routine [facility] Start: 12-16-2022 Admission procedure [facility] Start: 12-16-2022 Bleeding precautions [facility] Start: 12-16-2022 Consultation [facility] Start: 12-16-2022 End: 12-16-2022 Oxygen therapy [facility] Start: 12-16-2022 [facility] Start: 12-03-2022 COLORECTAL CANCER SCREENING COLORECTAL CANCER SCREENING [facility] Start: 10-05-2022 End: 12-05-2022 Bacteria identified in Urine by Culture URINE CULTURE Microbiology Routine UTI symptoms Expected: 10/05/2022 (Approximate), Expires: 12/05/2022 [facility] Work Phone: Comment on above: Expected: 10/05/2022 (Approximate), Expires: 12/05/2022 Start: 10-05-2022 End: 12-05-2022 Urinalysis complete panel - Urine URINALYSIS, WITH MICROSCOPIC Lab Routine UTI symptoms Expected: 10/05/2022, Expires: 12/05/2022 [facility] Work Phone: Comment on above: Expected: 10/05/2022 , Expires: 12/05/2022 Start: 09-27-2022 ADVANCE DIRECTIVE DISCUSSION ADVANCE DIRECTIVE DISCUSSION [facility] Start: 06-24-2022 End: 08-24-2022 Hemoglobin A1c in Blood [facility] Work Phone: Comment on above: Expected: 06/24/2022 , Expires: 08/24/2022 Start: 06-24-2022 Hemoglobin A1c/Hemoglobin.total in Blood HBA1C [facility] Start: 2022 RSV Vaccine (1 - 1-d ose 75+ series) RSV Vaccine (1 - 1-dose 75+ series) [facility] Start: 06-10-2022 3 comp foot exam completed DIABETIC FOOT EXAM [facility] Start: 06-10-2022 SHINGRIX VACCINE (1 of 2) RAMSEY GRIX VACCINE (1 of 2) [facility] Comment on above: Postponed from 06/16 (Declined at this time) Start: 06-10-2022 Urine microalbumin profile DTAP,TDAP,TD (1 - Tdap) [facility] Comment on above: Postponed from 06/16 (Declined at this time) Start: 06-09-2022 Hepatitis B surface antibody level LDL CHOLESTEROL [facility] Start: 05-28-2022 Influenza vaccination C [facility] Start: 03-26-2022 Influenza vaccination INFLUENZA (#1) [facility] Comment on above: Postponed from 05/28 (Declined at this time) Start: 01-09-2022 COVID-19 VACCINE (4 - Booster for Moderna series) COVID-19 VACCINE (4 - Booster for Moderna series) [facility] Start: 01-02-[address] [facility] Start: 12-22-2021 End: 02-21-2022 ALBUMIN/CREAT RATIO RND UR [facility] Work Phone: Comment on above: Expected: 12/22/2021 , Expires: 02/21/2022 Start: 12-22-2021 End: 02-21-2022 CBC panel - Blood by Automated count [facility] Work Phone: Comment on above: Expected: 12/22/2021 , Expires: 02/21/2022 Start: 12-22-2021 End: 02-21-2022 Comprehensive metabolic 2000 panel - Serum or Plasma [facility] Work Phone: Comment on above: Expected: 12/22/2021 , Expires: 02/21/2022 Start: 12-22-2021 End: 02-21-2022 Hemoglobin A1c/Hemoglobin.total in Blood [facility] Work Phone: Comment on above: Expected: 12/22/2021 , Expires: 02/21/2022 Start: 12-22-2021 End: 02-21-2022 LIPID PANEL BASIC [facility] Work Phone: Comment on above: Expected: 12/22/2021 , Expires: 02/21/2022 Start: 12-22-2021 End: 02-21-2022 Thyrotropin [Units/volume] in Serum or Plasma [facility] Work Phone: Comment on above: Expected: 12/22/2021 , Expires: 02/21/2022 Start: 12-22-2021 End: 02-21-2022 VITAMIN D 25 HYDROXY [facility] Work Phone: Comment on above: Expected: 12/22/2021 , Expires: 02/21/2022 Start: 12-07-2021 Hemoglobin A1c/Hemoglobin.total in Blood HBA1C [facility] Start: 12-04-2021 Hepatitis B screening URINE AL BUMIN:CREATININE RATIO [facility] Start: 11-05-2021 COVID-19 VACCINE (4 - Booster for Moderna series) COVID-19 VACCINE (4 - Booster for Moderna series) [facility] Start: 10-15-2021 Hepatitis C antibody , confirmatory test DILATED RETINAL EXAM [facility] Start: 03-24-[address] [facility] Start: 03-24-2016 COLORECTAL CANCER SCREENING COLORECTAL CANCER SCREENING [facility] Start: 2012 Pneumococcal Vaccine : 65+ Years (1 of 1 - PCV) Pneumococcal Vaccine: 65+ Years (1 of 1 - PCV) [facility] Start: 2007 Hepatitis B Vaccine (1 of 3 - Risk 3-dose series) Hepatitis B Vaccine (1 of 3 - Risk 3-dose series) [facility] Start: 2007 RSV Immunization age d 60 or older (1 - 1-dose 60+ series) RSV Immunization aged 60 or older (1 - 1-dose 60+ series) [facility] Start: 2007 RSV Vaccine (1 - 1-d ose 60+ series) RSV Vaccine (1 - 1-dose 60+ series) [facility] Start: 1997 SHINGRIX VACCINE (1 of 2) RAMSEY GRIX VACCINE (1 of 2) [facility] Start: 1997 Zoster Vaccines (1 of 2) Zoster Vacc flaquita (1 of 2) [facility] Start: 1992 COLOGUARD (FIT-DNA) COLOGUARD (FIT-D NA) [facility] Start: [address] COLONOGRAPHY [facility] Start: 1992 FECAL OCCULT BLOOD FECAL OCCULT BLOO D [facility] Start: 1992 SIGMOIDOSCOPY SIGMOIDOSCOPY [facility] Start: 1966 DTaP/Tdap/Td Vaccine s (1 - Tdap) DTaP/Tdap/Td Vaccines (1 - Tdap) [facility] Start: 1966 Urine microalbumin profile [facility] Start: 1965 Hepatitis C screening Hepatitis C Sc reening [facility] Start: 1959 Depression Screening Depression Scre ening [facility] Start: 1947 COVID-19 Vaccine (#1) COVID-19 Vacci ne (#1) [facility] Start: 1945 Screening for osteoporosis Bone Density Scan [facility] End: 09-05-2025 25-hydroxyvitamin D3 [Mass/volume] in Serum or Plasma VITAMIN D 25 HYDROXY Lab Routine Osteopenia, unspecified location Every 6 months for 90 Occurrences starting 09/05/2024 until 09/05/2025 [facility] Comment on above: Every 6 months for 9 0 Occurrences starting 09/05/2024 until 09/05/2025 Bacteria identified in Urine by Culture URINE CULTURE Microbiology Routine Urinary frequency 07/13/2024 7:52 PM EDT [facility] Work Phone: End: 01-22-2025 BD DXA TRABECULAR BONE SCORE (TBS) BD DXA TRABECULAR BONE SCORE (TBS) Radiology Routine Asymptomatic postmenopausal status 1 Occurrences starting 12/24/2023 until 01/22/2025 [facility] Work Phone: Comment on above: 1 Occurrences starti ng 12/24/2023 until 01/22/2025 End: 09-05-2025 CBC panel - Blood by Automated count COMPLETE BLOOD COUNT Lab Routine Encounter for long-term current use of medication Every 6 months for 90 Occurrences starting 09/05/2024 until 09/05/2025 [facility] Comment on above: Every 6 months for 9 0 Occurrences starting 09/05/2024 until 09/05/2025 COLOGUARD COLOGUARD Lab Ro utine Colon cancer screening Ordered: 12/22/2021 [facility] Work Phone: Comment on above: Ordered: 12/22/2021 End: 09-05-2025 Comprehensive metabolic 2000 panel - Serum or Plasma COMPREHENSIVE METABOLIC PANEL Lab Routine Controlled type 2 diabetes mellitus without complication, without long-term current use of insulin (HCC) Encounter for long-term current use of medication Every 6 months for 90 Occurrences starting 09/05/2024 until 09/05/2025 [facility] Comment on above: Every 6 months for 9 0 Occurrences starting 09/05/2024 until 09/05/2025 CTA Chest vessels WO and W contrast IV [facility] End: 02-20-2023 Diagnostic mammography computer-aided detcj uni OSMIN DIAGNOSTIC RT Radiology Routine Breast pain 1 Occurrences starting 01/21/2022 until 02/20/2023 [facility] Work Phone: Comment on above: 1 Occurrences starti ng 01/21/2022 until 02/20/2023 End: 01-21-2023 Dxa bone density study 1/> sites axial skel DXA-AXIAL SKELETON Radiology Routine Encounter for screening for osteoporosis Asymptomatic postmenopausal status 1 Occurrences starting 12/22/2021 until 01/21/2023 [facility] Work Phone: Comment on above: 1 Occurrences starti ng 12/22/2021 until 01/21/2023 End: 01-22-2025 DXA Skeletal system.axial Views for bone density DXA-AXIAL SKELETON Radiology Routine Asymptomatic postmenopausal status 1 Occurrences starting 12/24/2023 until 01/22/2025 [facility] Work Phone: Comment on above: 1 Occurrences starti ng 12/24/2023 until 01/22/2025 End: 11-20-2023 EMG(NEURO/NI) EMG(NEURO/NI) EMG Routine Cervical disc disorder with radiculopathy Bilateral carpal tunnel syndrome 1 Occurrences starting 11/20/2022 until 11/20/2023 [facility] Work Phone: Comment on above: 1 Occurrences starti ng 11/20/2022 until 11/20/2023 End: 09-05-2025 Hemoglobin A1c in Blood HEMOGLOBIN A1C Lab Routine Controlled type 2 diabetes mellitus without complication, without long-term current use of insulin ([facility]) Encounter for long-term current use of medication Every 6 months for 90 Occurrences starting 09/05/2024 until 09/05/2025 [facility] Comment on above: Every 6 months for 9 0 Occurrences starting 09/05/2024 until 09/05/2025 End: 09-05-2025 Lipid 1996 panel - Serum or Plasma LIPID PANEL BASIC Lab Routine Mixed hyperlipidemia Encounter for long-term current use of medication Every 6 months for 90 Occurrences starting 09/05/2024 until 09/05/2025 [facility] Comment on above: Every 6 months for 9 0 Occurrences starting 09/05/2024 until 09/05/2025 End: 09-05-2025 Magnesium [Mass/volume] in Serum or Plasma MAGNESIUM Lab Routine Nocturnal leg cramps Encounter for long-term current use of medication Every 6 months for 90 Occurrences starting 09/05/2024 until 09/05/2025 [facility] Comment on above: Every 6 months for 9 0 Occurrences starting 09/05/2024 until 09/05/2025 End: 09-05-2025 Microalbumin/Creatinine [Mass Ratio] in Urine ALBUMIN/CREATININE RATIO, URINE Lab Routine Encounter for long-term current use of medication Every 6 months for 90 Occurrences starting 09/05/2024 until 09/05/2025 [facility] Work Phone: Comment on above: Every 6 months for 9 0 Occurrences starting 09/05/2024 until 09/05/2025 End: 10-04-2023 Mri spinal canal cervical w/o contrast matrl MRI CERVICAL SPINE WO IVCON Radiology Routine Spinal stenosis of cervical region 1 Occurrences starting 09/04/2022 until 10/04/2023 [facility] Work Phone: Comment on above: 1 Occurrences starti ng 09/04/2022 until 10/04/2023 End: 07-17-2023 Mri spinal canal lumbar w/o contrast material MRI LUMBAR SPINE WO IVCON Radiology Routine Spinal stenosis of lumbar region, unspecified whether neurogenic claudication present 1 Occurrences starting 06/17/2022 until 07/17/2023 [facility] Work Phone: Comment on above: 1 Occurrences starti ng 06/17/2022 until 07/17/2023 End: 10-04-2023 Mri spinal canal thoracic w/o contrast matrl MRI THORACIC SPINE WO IVCON Radiology Routine Thoracic spondylosis without myelopathy 1 Occurrences starting 09/04/2022 until 10/04/2023 [facility] Work Phone: Comment on above: 1 Occurrences starti ng 09/04/2022 until 10/04/2023 Patient Education [facility] Work Phone: Patient referral [facility] Work Phone: PT PLAN OF CARE CERTIFICATION PT PLAN OF CARE CERTIFICATION Procedures Routine Compression fracture of L1 vertebra with routine healing, subsequent encounter Lumbar radiculopathy Chronic bilateral low back pain with bilateral sciatica Ordered: 11/04/2022 [facility] Work Phone: Comment on above: Ordered: 11/04/2022 End: 10-04-2023 Radex spine cervical 4 or 5 views XR CERV OTHER 4V AP/LAT/FLX/EXT Radiology Routine Spinal stenosis of cervical region 1 Occurrences starting 09/04/2022 until 10/04/2023 [facility] Work Phone: Comment on above: 1 Occurrences starti ng 09/04/2022 until 10/04/2023 End: 12-20-2023 Radex spine cervical 4 or 5 views XR CERV OTHER 4V AP/LAT/FLX/EXT Radiology Routine Cervical disc disorder with radiculopathy 1 Occurrences starting 11/20/2022 until 12/20/2023 [facility] Work Phone: Comment on above: 1 Occurrences starti ng 11/20/2022 until 12/20/2023 End: 01-21-2023 Screening mammography bi 2-view breast inc cad OSMIN SCREENING Radiology Routine Encounter for screening mammogram for breast cancer 1 Occurrences starting 12/22/2021 until 01/21/2023 [facility] Work Phone: Comment on above: 1 Occurrences starti ng 12/22/2021 until 01/21/2023 Troponin T.cardiac [Mass/volume] in Serum or Plasma by High sensitivity method [facility] End: 02-20-2023 Us breast uni real time with image limited US BREAST LTD RT Radiology Routine Breast pain 1 Occurrences starting 01/21/2022 until 02/20/2023 [facility] Work Phone: Comment on above: 1 Occurrences starti ng 01/21/2022 until 02/20/2023 [facility] Immunizations Immunization Date Immunization Notes Care Provider [facility] 09-05-2024 influenza, high dose seasonal, preservative-free Yenifer Gonsalez MD Work Phone: [facility] 08-30-2023 COVID-19 vaccine, ag e 12+ yr, season (ArthaYantra) Yenifer Gonsalez MD Work Phone: [facility] 08-30-2023 influenza (HD-IIV4) vaccine, age 65+ yr, high dose, quadrivalent, PF (FLUZONE HIGH-DOSE) Yenifer Gonsalez MD Work Phone: [facility] 08-30-2023 influenza virus vacc ine, unspecified formulation DR YUNIOR ELAINE MD [facility] 08-30-2023 SARS-CoV-2 (COVID-19 ) [id number] DR YUNIOR ELAINE MD [facility] Comment on above: Result Comment: 2022: [id number] 06-24-2022 influenza, high-dose , quadrivalent vaccine (FLUZONE HIGH DOSE QUADRIVALENT) Annette Older COMPUTER SUPPORT SPECIALIST.BEER COOLER Work Phone: [facility] 06-24-2022 influenza virus vacc ine, unspecified formulation Dione Maryam COMPUTER SUPPORT SPECIALIST.BEER COOLER Work Phone: [facility] 09-12-2021 Covid (Moderna) [facility] 09-10-2021 COVID-19 vaccine, booster dose (MODERNA) Annette Older COMPUTER SUPPORT SPECIALIST.BEER COOLER Work Phone: [facility] Work Phone: 02-22-2021 Covid (Moderna) [facility] 10-16-2020 Covid (Moderna) [facility] 07-18-2020 influenza virus vacc ine, unspecified formulation DR YUNIOR ELAINE MD [facility] 07-18-2020 influenza, high-dose , quadrivalent vaccine (FLUZONE HIGH DOSE QUADRIVALENT) Annette Older COMPUTER SUPPORT SPECIALIST.BEER COOLER Work Phone: [facility] Work Phone: 07-18-2020 pneumococcal conjuga te vaccine, 13 valent Annette Older COMPUTER SUPPORT SPECIALIST.BEER COOLER Work Phone: [facility] Work Phone: 08-17-2018 influenza virus vacc ine, unspecified formulation DR YUNIOR ELAINE MD [facility] 08-17-2018 influenza, high dose seasonal, preservative-free Annette Older COMPUTER SUPPORT SPECIALIST.BEER COOLER Work Phone: [facility] 05-18-2018 haemophilus influenz ae type b vaccine, PRP-T conjugate Annette Older COMPUTER SUPPORT SPECIALIST.[facility] Work Phone: [facility] Work Phone: 05-18-2018 meningococcal polysaccharide (groups A, C, Y and W-135) diphtheria toxoid conjugate vaccine (MCV4P) Annette Older COMPUTER SUPPORT SPECIALIST.[facility] Work Phone: [facility] Work Phone: 05-18-2018 pneumococcal polysaccharide vaccine, 23 valent Annette Older COMPUTER SUPPORT SPECIALIST.[facility] Work Phone: [facility] Work Phone: Payers Date Payer Category Payer Self-pay [id number] 2022 [place] [id number] 2022 Medicare [id number] 2021 Medicare AETNA MEDICARE A ETNA MEDICARE [facility] [id number] 2021-Present [phone] [address] [place] [address] [facility] [id number] 2012 Medicare [id number] 2012 Medicare [id number] 1947 Unknown [id number] 1945 Unknown [id number]. 627 1945 Unknown [id number]. 627 Private Health Insurance Formerly named [facility] [id number] Unknown [id number] 462 Unknown [id number]. 462 Unknown [id number]. 462 Unknown [id number]. 462 Unknown [id number]. 462 Unknown [id number] [id number]. 462 Unknown [id number] [id number]. 462 Unknown [id number] [id number]. 462 Unknown [id number]. 462 Unknown [id number] [id number]. 462 Unknown [id number] [id number]. 462 Unknown [id number]. 462 Unknown [id number] 462 Social History Date Type Detail Facility Start: 10-14-2015 End: 01-23-2025 Tobacco smoking status NHIS Never smoked tobacco [facility] Work Phone: Start: 12-22-2021 End: 01-30-2025 Alcohol intake Current drinker of alcohol (finding) [facility] Start: 05-21-2020 End: 08-27-2022 History SDOH Alcohol Frequency 3 [facility] Start: 05-21-2020 End: 08-27-2022 History SDOH Alcohol Std Drinks 1 [facility] Start: 10-14-2015 History SDOH Alcohol Comment She drinks approximately [address] [facility] Start: 06-27-2018 End: 08-27-2022 History SDOH Social Connections Phone 5 [facility] Start: 05-21-2020 End: 08-27-2022 History SDOH Social Connections Get Together [address] [facility] Start: 05-21-[address] [facility] Start: 1945 Sex Assigned At Not on file [facility] Start: 09-22-2020 End: 08-28-2022 Exposure to SARS-CoV-2 (event) Not sure [facility] Start: 01-07-2022 End: 01-17-2022 Exposure to SARS-CoV-2 (event) Unable to assess [facility] Work Phone: Start: 02-16-2022 End: 06-23-2023 Tobacco smoking status NHIS Unknown if ever smoked [facility] Start: 09-13-2020 None [facility] Start: 09-13-2020 With Family [facility] Start: 1945 Sex Assigned At Female [facility] Start: 10-14-2015 Tobacco use and exposure Smokeless tobacco non-user [facility] Work Phone: Start: 12-18-2022 Non-smoker [facility] Start: 08-26-2022 End: 02-04-2023 History of Social function [facility] Start: 08-26-2022 End: 02-04-2023 Social connection and isolation panel [facility] Do you belong to any clubs or organizations such as mandaeism groups, unions, fraternal or athletic groups, or school groups? No [facility] Are you now , , , , never or living with a partner? [facility] How often to you hav e a drink containing alcohol? 2-[address] [facility] How many standard dr inks containing alcohol do you have on a typical day? [address] [facility] How often do you hav e 6 or more drinks on 1 occasion? Never [facility] How hard is it for y ou to pay for the very basics like food, housing, medical care, and heating Somewhat hard [facility] Adult Depression Screening Assessment 2 [facility] Do you feel stress - tense, restless, nervous, or anxious, or unable to sleep at night because your mind is troubled all the time - these days [OSQ] To some extent [facility] (I/We) worried wheth er (my/our) food would run out before (I/we) got money to buy more. Never true [facility] Do you belong to any clubs or organizations such as mandaeism groups, unions, fraternal or athletic groups, or school groups? Yes [facility] Are you now , , , , never or living with a partner? Living with partner [facility] How often to you hav e a drink containing alcohol? Monthly or less [facility] Do you feel stress - tense, restless, nervous, or anxious, or unable to sleep at night because your mind is troubled all the time - these days [OSQ] Only a little [facility] (I/We) worried wheth er (my/our) food would run out before (I/we) got money to buy more. Sometimes true [facility] Start: 01-12-2025 End: 01-23-2025 Sex Female (finding) [facility] Medical Equipment Procedure Code Equipment Code Equipment Origin al Text Equipment Identifier Dates Laparoscopic splenectomy CLIP,KOURTNEY FONTANA FDA Start: 06-13-2018 Laparoscopic splenectomy CLIP,HEMOLODARREN FONTANA FDA Start: 06-13-2018 Laparoscopic splenectomy RELOAD,45 FLEX BLUE FDA Start: 06-13-2018 Laparoscopic splenectomy RELOAD,45 FLEX BLUE FDA Start: 06-13-2018 Laparoscopic splenectomy RELOAD,VASCULAR TISSUE FDA Start: 06-13-2018 Laparoscopic splenectomy RELOAD,VASCULAR TISSUE FDA Start: 06-13-2018 Laparoscopic splenectomy CLIP,HEMOLOCK LG WECK FDA Start: 06-13-2018 Laparoscopic splenectomy CLIP,HEMOLOCK MED WECK FDA Start: 06-13-2018 Laparoscopic splenectomy RELOAD,45 FLEX BLUE FDA Start: 06-13-2018 Laparoscopic splenectomy RELOAD,45 FLEX BLUE FDA Start: 06-13-2018 Laparoscopic splenectomy RELOAD,VASCULAR TISSUE FDA Start: 06-13-2018 Laparoscopic splenectomy RELOAD,VASCULAR TISSUE FDA Start: 06-13-2018 Laparoscopic splenectomy CLIP,HEMOLOCK LG WECK FDA Start: 06-13-2018 Laparoscopic splenectomy CLIP,HEMOLOCK MED WECK FDA Start: 06-13-2018 Laparoscopic splenectomy RELOAD,45 FLEX BLUE FDA Start: 06-13-2018 Laparoscopic splenectomy RELOAD,45 FLEX BLUE FDA Start: 06-13-2018 Laparoscopic splenectomy RELOAD,VASCULAR TISSUE FDA Start: 06-13-2018 Laparoscopic splenectomy RELOAD,VASCULAR TISSUE FDA Start: 06-13-2018 Laparoscopic splenectomy CLIP,HEMOLOCK LG WECK FDA Start: 06-13-2018 Laparoscopic splenectomy CLIP,HEMOLOCK MED WECK FDA Start: 06-13-2018 Laparoscopic splenectomy RELOAD,45 FLEX BLUE FDA Start: 06-13-2018 Laparoscopic splenectomy RELOAD,45 FLEX BLUE FDA Start: 06-13-2018 Laparoscopic splenectomy RELOAD,VASCULAR TISSUE FDA Start: 06-13-2018 Laparoscopic splenectomy RELOAD,VASCULAR TISSUE FDA Start: 06-13-2018 Laparoscopic splenectomy CLIP,HEMOLOCK LG WECK FDA Start: 06-13-2018 Laparoscopic splenectomy CLIP,HEMOLOCK MED WECK FDA Start: 06-13-2018 Laparoscopic splenectomy RELOAD,45 FLEX BLUE FDA Start: 06-13-2018 Laparoscopic splenectomy RELOAD,45 FLEX BLUE FDA Start: 06-13-2018 Laparoscopic splenectomy RELOAD,VASCULAR TISSUE FDA Start: 06-13-2018 Laparoscopic splenectomy RELOAD,VASCULAR TISSUE FDA Start: 06-13-2018 Laparoscopic splenectomy CLIP,HEMOLOCK LG WECK FDA Start: 06-13-2018 Laparoscopic splenectomy CLIP,HEMOLOCK MED WECK FDA Start: 06-13-2018 Laparoscopic splenectomy RELOAD,45 FLEX BLUE FDA Start: 06-13-2018 Laparoscopic splenectomy RELOAD,45 FLEX BLUE FDA Start: 06-13-2018 Laparoscopic splenectomy RELOAD,VASCULAR TISSUE FDA Start: 06-13-2018 Laparoscopic splenectomy RELOAD,VASCULAR TISSUE FDA Start: 06-13-2018 Laparoscopic splenectomy CLIP,HEMOLOCK LG WECK FDA Start: 06-13-2018 Laparoscopic splenectomy CLIP,HEMOLOCK MED WECK FDA Start: 06-13-2018 Laparoscopic splenectomy RELOAD,45 FLEX BLUE FDA Start: 06-13-2018 Laparoscopic splenectomy RELOAD,45 FLEX BLUE FDA Start: 06-13-2018 Laparoscopic splenectomy RELOAD,VASCULAR TISSUE FDA Start: 06-13-2018 Laparoscopic splenectomy RELOAD,VASCULAR TISSUE FDA Start: 06-13-2018 Laparoscopic splenectomy CLIP,HEMOLOCK LG WECK FDA Start: 06-13-2018 Laparoscopic splenectomy CLIP,HEMOLOCK MED WECK FDA Start: 06-13-2018 Laparoscopic splenectomy RELOAD,45 FLEX BLUE FDA Start: 06-13-2018 Laparoscopic splenectomy RELOAD,45 FLEX BLUE FDA Start: 06-13-2018 Laparoscopic splenectomy RELOAD,VASCULAR TISSUE FDA Start: 06-13-2018 Laparoscopic splenectomy RELOAD,VASCULAR TISSUE FDA Start: 06-13-2018 Laparoscopic splenectomy CLIP,HEMOLOCK LG WECK FDA Start: 06-13-2018 Laparoscopic splenectomy CLIP,HEMOLOCK MED WECK FDA Start: 06-13-2018 Laparoscopic splenectomy RELOAD,45 FLEX BLUE FDA Start: 06-13-2018 Laparoscopic splenectomy RELOAD,45 FLEX BLUE FDA Start: 06-13-2018 Laparoscopic splenectomy RELOAD,VASCULAR TISSUE FDA Start: 06-13-2018 Laparoscopic splenectomy RELOAD,VASCULAR TISSUE FDA Start: 06-13-2018 Laparoscopic splenectomy CLIP,HEMOLOCK LG WECK FDA Start: 06-13-2018 Laparoscopic splenectomy CLIP,HEMOLOCK MED WECK FDA Start: 06-13-2018 Laparoscopic splenectomy RELOAD,45 FLEX BLUE FDA Start: 06-13-2018 Laparoscopic splenectomy RELOAD,45 FLEX BLUE FDA Start: 06-13-2018 Laparoscopic splenectomy RELOAD,VASCULAR TISSUE FDA Start: 06-13-2018 Laparoscopic splenectomy RELOAD,VASCULAR TISSUE FDA Start: 06-13-2018 Laparoscopic splenectomy CLIP,HEMOLOCK LG WECK FDA Start: 06-13-2018 Laparoscopic splenectomy CLIP,HEMOLOCK MED WECK FDA Start: 06-13-2018 Laparoscopic splenectomy RELOAD,45 FLEX BLUE FDA Start: 06-13-2018 Laparoscopic splenectomy RELOAD,45 FLEX BLUE FDA Start: 06-13-2018 Laparoscopic splenectomy RELOAD,VASCULAR TISSUE FDA Start: 06-13-2018 Laparoscopic splenectomy RELOAD,VASCULAR TISSUE FDA Start: 06-13-2018 Laparoscopic splenectomy CLIP,HEMOLOCK LG WECK FDA Start: 06-13-2018 Laparoscopic splenectomy CLIP,HEMOLOCK MED WECK FDA Start: 06-13-2018 Laparoscopic splenectomy RELOAD,45 FLEX BLUE FDA Start: 06-13-2018 Laparoscopic splenectomy RELOAD,45 FLEX BLUE FDA Start: 06-13-2018 Laparoscopic splenectomy RELOAD,VASCULAR TISSUE FDA Start: 06-13-2018 Laparoscopic splenectomy RELOAD,VASCULAR TISSUE FDA Start: 06-13-2018 Test blood sugar(s) 1 times daily and as needed. Dx: Type 2 DM - Controlled E11.9 Insulin: No [id number] Start: 05-21-2020 End: 06-10-2021 Test blood sugar(s) 1 time daily and as needed. Dx: Type 2 DM - Controlled E11.9 Insulin: No [id number] Start: 05-21-2020 End: 06-10-2021 Goals Date Patient Goal Desired Activity /State Personal health goal Personal health goal Functional Status Date Assessment Result Facility 01-23-2025 Functional status Activity Abili ty With Assist of 1 [facility] Work Phone: 09-15-2023 Functional Status bilateral knee high removed/off [facility] 09-15-2023 Functional Status 9 [facility] 09-15-2023 Functional Status Identified as high risk, Fall ID band on, Door open, Non-Slip footwear, Room check performed [facility] 09-15-2023 Functional Status [facility] 09-14-2023 Functional Status [facility] 09-14-2023 Functional Status [facility] 09-14-2023 Functional Status [facility] 09-14-2023 Functional Status [facility] 09-14-2023 Functional Status Single level home [facility] 09-14-2023 Functional Status ice on, tension pillow in place [facility] 09-14-2023 Functional Status Maintained [facility] 08-18-2023 Functional Status Sensory Defici ts Hearing deficit, left ear, Hearing deficit, right ear [facility] 12-18-2022 Functional status Ambulates;Tomas le Feet;Chair [facility] Work Phone: 10-26-2014 Are you deaf, or do you have serious difficulty hearing No 10/26/2014 11:45 AM ROSEMARY Ruiz Cma Zeinab Margret [facility] 10-26-2014 Are you blind, or do you have serious difficulty seeing, even when wearing glasses No 10/26/2014 11:45 AM ROSEMARY Ruiz Cma Zeinab Oswald [facility] 10-26-2014 Do you have serious difficulty walking or climbing stairs No 10/26/2014 11:45 AM ROSEMARY Ruiz Cma Zeinab Oswald [facility] 10-26-2014 Do you have difficul ty dressing or bathing No 10/26/2014 11:45 AM ROSEMARY Ruiz Cma Zeinab Oswald [facility] 10-26-2014 Because of a physica l, mental, or emotional condition, do you have difficulty doing errands alone such as visiting a physician's office or shopping No 10/26/2014 11:45 AM [address] Francis Cma [facility] Mental Status Date Assessment Result Facility 01-23-2025 Cognitive function Voice/Name [facility] Work Phone: 01-22-2025 Cognitive function Voice/Name [facility] Work Phone: 09-15-2023 Mental Status Oriented x 4 [facility] 09-14-2023 Mental Status [facility] 09-14-2023 Mental Status [facility] 12-19-2022 Cognitive function Voice/Name [facility] Work Phone: 10-26-2014 Because of a physica l, mental, or emotional condition, do you have serious difficulty concentrating, remembering, or making decisions No 10/26/2014 11:45 AM Zeinab Francis Cma [facility] Clinical Notes 03-02-2006 to 03-16-2025 Telephone Encounter - Teresa Rollins LPN - 03/16/2025 9:21 AM EDTTelephone Encounter - Teresa Rollins LPN - 03/16/2025 9:21 AM EDTTelephone Encounter - Tricia Collado - 02/22/2025 11:00 AM EDT Note Date & Type Note Facility 03-16-2025 Telephone encounter Note Images from the original note were not included. Ned topete this was completed electronically and approved. Prior authorization approved Payer: [employer] [phone] Note from payer: The request has been approved. The authorization is effective from 03/16/2025 to 03/15/2026, as long as the member is enrolled in their current health plan. The request was approved as submitted. A written notification letter will follow with additional details. Approval Details Authorized from March 16, 2025 to March 15, 2026 Electronic appeal: Not supported View History Notes Time User Attachment Attachment received from payer. 03/16/2025 9:05 AM Cchs, Rx Priorauth In Document Pharmacy Benefits Open Encounter ELIZABETH RODRIGEZ [facility] [id number] (MEDIACT) Covered: Retail, Mail Order Unknown: Specialty, Long-Term Care BIN: [id number] : 1945 Group ID: [id number] PCN: [id number] Legal sex: F Group name: Address: [address] [place] [id number] Medication Being Authorized PARoxetine (PAXIL) 20 mg tablet Take 2 tablets by mouth every morning AND 0.5 tablets every evening. Dispense: 225 tablet Refills: 3 Start: 02/22/2025 Class: Normal Diagnoses: Generalized anxiety disorder This order has been released to its destination. To be filled at: [facility] [address] [place] [id number] [facility] [phone] [facility] 03-16-2025 Miscellaneous Notes Images from the original note were not included. Ned topete this was completed electronically and approved. Prior authorization approved Payer: [employer] [phone] Note from payer: The request has been approved. The authorization is effective from 03/16/2025 to 03/15/2026, as long as the member is enrolled in their current health plan. The request was approved as submitted. A written notification letter will follow with additional details. Approval Details Authorized from March 16, 2025 to March 15, 2026 Electronic appeal: Not supported View History Notes Time User Attachment Attachment received from payer. 03/16/2025 9:05 AM Cchs, Rx Priorauth In Document Pharmacy Benefits Open Encounter ELIZABETH RODRIGEZ MEDICARE D [id number] (MEDIMPACT) Covered: Retail, Mail Order Unknown: Specialty, Long-Term Care BIN: [id number] : 1945 Group ID: [id number] PCN: [id number] Legal sex: F Group name: Address: [address] [place] [address] Medication Being Authorized PARoxetine (PAXIL) 20 mg tablet Take 2 tablets by mouth every morning AND 0.5 tablets every evening. Dispense: 225 tablet Refills: 3 Start: 02/22/2025 Class: Normal Diagnoses: Generalized anxiety disorder This order has been released to its destination. To be filled at: [facility] [address] [place] [id number] - [id number] [place], [place] [id number] [facility] documented in this encounter [facility] 02-22-2025 Telephone encounter Note ok [facility] 02-22-2025 Miscellaneous Notes ok Patient is out of Verapamil and Paxil. She is asking if these can please be expedited today. Patient has been identified by name and date of : Yes Patient phones for refill(s): Requested Prescriptions Pending Prescriptions Disp Refills gabapentin (NEURONTIN) 300 mg capsule 270 capsule 3 Sig: Take 1 capsule by mouth three times a day. PARoxetine (PAXIL) 20 mg tablet 225 tablet 3 Sig: Take 2 tablets by mouth every morning AND 0.5 tablets every evening. verapamil 80 mg tablet 180 tablet 3 Sig: Take 1 tablet by mouth two times a day. alendronate (FOSAMAX) 70 mg tablet 12 tablet 3 Sig: Take 1 tablet by mouth one time a week. Take with a full glass of water, on an empty stomach; do NOT lie down for 30minutes. Date of last office visit in primary care: 01/30/2025 Date of next office visit in primary care: 03/13/2025 Please advise. Thank you. Tricia Collado. documented in this encounter [facility] 02-22-2025 Telephone encounter Note Patient is out of Verapamil and Paxil. She is asking if these can please be expedited today. Patient has been identified by name and date of : Yes Patient phones for refill(s): Requested Prescriptions Pending Prescriptions Disp Refills gabapentin (NEURONTIN) 300 mg capsule 270 capsule 3 Sig: Take 1 capsule by mouth three times a day. PARoxetine (PAXIL) 20 mg tablet 225 tablet 3 Sig: Take 2 tablets by mouth every morning AND 0.5 tablets every evening. verapamil 80 mg tablet 180 tablet 3 Sig: Take 1 tablet by mouth two times a day. alendronate (FOSAMAX) 70 mg tablet 12 tablet 3 Sig: Take 1 tablet by mouth one time a week. Take with a full glass of water, on an empty stomach; do NOT lie down for 30minutes. Date of last office visit in primary care: 01/30/2025 Date of next office visit in primary care: 03/13/2025 Please advise. Thank you. Tricia Collado. [facility] 01-30-2025 Instructions Christa Cabrera APRN.ENVIRONMENTAL ATTORNEY - 01/30/2025 11:26 AM EDT Continue your physical therapy at [facility] for your vertigo symptoms and use meclizine only as needed. Contact the [facility] later today to schedule an appointment for a heart evaluation, including possible heart rhythm monitoring. Arrange a follow-up appointment with your neurology provider in [place] Keep taking your current blood thinner (Eliquis) and cholesterol medicine as prescribed. documented in this encounter [facility] 01-30-2025 Note HNO ID: [id number] Author: CHRISTA CABRERA APRN.RAFFI Service: ? Author Type: Nurse Specialist Type: Progress Notes Filed: 01/30/2025 11:26 Note Text: SUBJECTIVE: DTaP,Tdap,Td Vaccine(1 - Tdap) Never done Shingrix Vaccine(1 of 2) Never done RSV Vaccine(1 - 1-dose 75+ series) Never done Diabetic Foot Exam due on 03/11/2023 Advance Directive Discussion due on 09/27/2024 HPI Elizabeth Rodrigez is a 79 year old female.Past medical history significant for ACTIVE PROBLEM LIST Disorder of Bone and Cartilage Allergic Rhinitis, Cause Unspecified Generalized Anxiety Disorder Recurrent Major Depressive Disorder, in Partial Remission Pure Hypercholesterolemia Generalized Osteoarthrosis, Involving Hand Other Specified Cardiac Dysrhythmias(427.89) Panic Disorder Without Agoraphobia Migraine Without Aura, Without Mention of Intractable Migraine Without Mention of Status Migrainosus Ascending Aortic Aneurysm Elisha On Cpap Non Morbid Obesity Due to Excess Calories Primary Osteoarthritis of Both Knees Chronic Pain of Left Knee Psvt (Paroxysmal Supraventricular Tachycardia) (Hcc) Lichen Sclerosus Hearing Difficulty of Both Ears Controlled Type 2 Diabetes Mellitus Without Complication, Without Long-Term Current Use of Insulin (Hcc) Chronic Pain of Right Knee Obesity, Class I, Bmi 30-34.9 Compression Fracture of L1 Lumbar Vertebra (Hcc) Cerebrovascular Accident (Cva) (Hcc) Osteopenia Paf (Paroxysmal Atrial Fibrillation) ([facility]) Presents for hospital discharge follow-up visit. She was seen at [facility] for head injury. She reported that she was in the shower when she was struck by a showerhead in her head. She reports that she felt dazed and saw black for a second. She reported the injury caused her to lose control of her bowels. She reported injury occurred about 2 and half hours before examination in the ER. No vomiting. Hematoma is present on the back of her head. Brain CT was completed and showed no acute findings. A hematoma was noted on the exam in the ER. She was seen at [facility] January 22 through January 23 for a TIA. She presented with acute onset of vertigo and was admitted to a monitored bed for further evaluation. Consult placed for neurology. MRI was completed and negative for acute CVA. Teleneurologist recommended continuation of systemic anticoagulation, meclizine as needed and vestibular therapy. Brain CT on January 22 showed no acute intracranial findings. Chronic microvascular ischemic changes and age-related changes are present. Head and neck CTA showed no large vessel occlusion no AVM or aneurysm. No stenosis of the cervical carotid arteries present. Brain MRI showed no specific evidence of an acute intracranial process. Referral was placed for physical therapy. . Head Trauma: - Sustained head trauma from a shower head falling on the back of her head. - Resulted in a hematoma, initially soft, now described as small and hard. - No associated headaches. Syncope: - Reports recent [place], preceded by vertigo and loss of consciousness for approximately one minute, witnessed. - Denies it was a fall; describes it as a collapse straight downward. - No chest pain, dyspnea, or palpitations reported prior or during the event. - No loss of bowel or bladder control. - Double vision occurred during the episode, resolved within 1-1.5 hours. - Has a history of severe vertigo, previously treated with physical therapy. - Currently taking meclizine PRN. - No further episodes of dizziness or syncope since hospital discharge. - Scheduled for physical therapy at [facility] tomorrow. AFib: - Diagnosed with AFib, noted during recent hospitalization but resolved spontaneously. - No recent follow-up with cardiology; last seen by Dr. Mendieta approximately three years ago. - Taking Eliquis regularly. Gastroenteritis: - Developed vomiting and diarrhea for over three days post-hospitalization. - Managed with Imodium AD, Pepto-Bismol, and Rolaids. - Consumed only dry toast during this period. - Symptoms have resolved. ROS Head: (-) headache Eyes: (-) diplopia Ears/Nose/Mouth/Throat: (+) hearing changes Cardiovascular: (-) chest pain, (-) palpitations Respiratory: (-) shortness of breath Gastrointestinal: (-) vomiting, (-) diarrhea Neurological: (-) dizziness, (-) syncope Objective BP 125/80 Pulse 76 Wt 79.6 kg (175 lb 7.8 oz) SpO2 96% BMI 33.78 kg/m? Physical Exam Vitals and nursing note reviewed. HENT: Head: Normocephalic and atraumatic. Comments: small mass on right side occiput, nontender Right Ear: Hearing normal. Left Ear: Hearing normal. Eyes: Conjunctiva/sclera: Conjunctivae normal. Neck: Thyroid: No thyroid mass or thyromegaly. Vascular: Normal carotid pulses. No carotid bruit or JVD. Cardiovascular: Rate and Rhythm: Normal rate and regular rhythm (more content not included)... [facility] 01-30-2025 History of Present illness Narrative SUBJECTIVE: DTaP,Tdap,Td Vaccine(1 - Tdap) Never done Shingrix Vaccine(1 of 2) Never done RSV Vaccine(1 - 1-dose 75+ series) Never done Diabetic Foot Exam due on 03/11/2023 Advance Directive Discussion due on 09/27/2024 HPI Elizabeth Rodrigez is a 79 year old female.Past medical history significant for ACTIVE PROBLEM LIST Disorder of Bone and Cartilage Allergic Rhinitis, Cause Unspecified Generalized Anxiety Disorder Recurrent Major Depressive Disorder, in Partial Remission Pure Hypercholesterolemia Generalized Osteoarthrosis, Involving Hand Other Specified Cardiac Dysrhythmias(427.89) Panic Disorder Without Agoraphobia Migraine Without Aura, Without Mention of Intractable Migraine Without Mention of Status Migrainosus Ascending Aortic Aneurysm Elisha On Cpap Non Morbid Obesity Due to Excess Calories Primary Osteoarthritis of Both Knees Chronic Pain of Left Knee Psvt (Paroxysmal Supraventricular Tachycardia) (Hcc) Lichen Sclerosus Hearing Difficulty of Both Ears Controlled Type 2 Diabetes Mellitus Without Complication, Without Long-Term Current Use of Insulin (Hcc) Chronic Pain of Right Knee Obesity, Class I, Bmi 30-34.9 Compression Fracture of L1 Lumbar Vertebra (Hcc) Cerebrovascular Accident (Cva) (Hcc) Osteopenia Paf (Paroxysmal Atrial Fibrillation) ([facility]) Presents for hospital discharge follow-up visit. She was seen at [facility] for head injury. She reported that she was in the shower when she was struck by a showerhead in her head. She reports that she felt dazed and saw black for a second. She reported the injury caused her to lose control of her bowels. She reported injury occurred about 2 and half hours before examination in the ER. No vomiting. Hematoma is present on the back of her head. Brain CT was completed and showed no acute findings. A hematoma was noted on the exam in the ER. She was seen at [facility] January 22 through January 23 for a TIA. She presented with acute onset of vertigo and was admitted to a monitored bed for further evaluation. Consult placed for neurology. MRI was completed and negative for acute CVA. Teleneurologist recommended continuation of systemic anticoagulation, meclizine as needed and vestibular therapy. Brain CT on January 22 showed no acute intracranial findings. Chronic microvascular ischemic changes and age-related changes are present. Head and neck CTA showed no large vessel occlusion no AVM or aneurysm. No stenosis of the cervical carotid arteries present. Brain MRI showed no specific evidence of an acute intracranial process. Referral was placed for physical therapy. . Head Trauma: - Sustained head trauma from a shower head falling on the back of her head. - Resulted in a hematoma, initially soft, now described as small and hard. - No associated headaches. Syncope: - Reports recent episode of syncope at a bowling alley, preceded by vertigo and loss of consciousness for approximately one minute, witnessed. - Denies it was a fall; describes it as a collapse straight downward. - No chest pain, dyspnea, or palpitations reported prior or during the event. - No loss of bowel or bladder control. - Double vision occurred during the episode, resolved within 1-1.5 hours. - Has a history of severe vertigo, previously treated with physical therapy. - Currently taking meclizine PRN. - No further episodes of dizziness or syncope since hospital discharge. - Scheduled for physical therapy at [facility] tomorrow. AFib: - Diagnosed with AFib, noted during recent hospitalization but resolved spontaneously. - No recent follow-up with cardiology; last seen by Dr. Mendieta approximately three years ago. - Taking Eliquis regularly. Gastroenteritis: - Developed vomiting and diarrhea for over three days post-hospitalization. - Managed with Imodium AD, Pepto-Bismol, and Rolaids. - Consumed only dry toast during this period. - Symptoms have resolved. ROS Head: (-) headache Eyes: (-) diplopia Ears/Nose/Mouth/Throat: (+) hearing changes Cardiovascular: (-) chest pain, (-) palpitations Respiratory: (-) shortness of breath Gastrointestinal: (-) vomiting, (-) diarrhea Neurological: (-) dizziness, (-) syncope Objective BP 125/80 Pulse 76 Wt 79.6 kg (175 lb 7.8 oz) SpO2 96% BMI 33.78 kg/m Physical Exam Vitals and nursing note reviewed. HENT: Head: Normocephalic and atraumatic. Comments: small mass on right side occiput, nontender Right Ear: Hearing normal. Left Ear: Hearing normal. Eyes: Conjunctiva/sclera: Conjunctivae normal. Neck: Thyroid: No thyroid mass or thyromegaly. Vascular: Normal carotid pulses. No carotid bruit or JVD. Cardiovascular: Rate and Rhythm: Normal rate and regular rhythm. Heart sounds: Normal heart sounds. Pulmonary: Effort: Pulmonary effort is normal. Breath sounds: Normal breath sounds. Abdominal: General: Bowel sounds are normal. Palpations: Abdomen is soft. Lymphadenopathy: Cervical: No cervical adenopathy. Skin: General: Skin is warm and dry. Neurological: General: No focal deficit present. Mental Status: She is alert and oriented to person, place, and time. ALLERGIES Allergen Reactions Epinephrine Other: See Comments Tachycardia, becomes incoherent Penicillins Rash Percocet [Oxycodone* Vomiting It makes her feel drunk Xylocaine [Lidocain* Other: See Comments tachycardia--Not really sure if had reaction to this or if was the epinephrine Mdications meclizine (ANTIVERT) 25 mg tab Take 1 tablet by mouth every 6 hours as needed (dizziness/vertigo). apixaban (ELIQUIS) 5 mg tab(s) Take 1 tablet by mouth two times a day. rosuvastatin (CRESTOR) 10 mg tablet Take 1 tablet by mouth once daily. As directed phenazopyridine (PYRIDIUM) 200 mg tablet Take 1 tablet by mouth three times a day as needed. acyclovir (ZOVIRAX) 400 mg tablet Take 1 tablet by mouth two times a day. verapamil 80 mg tablet Take 1 tablet by mouth two times a day. gabapentin (NEURONTIN) 300 mg capsule Take 1 capsule by mouth three times a day. clobetasol (TEMOVATE) 0.05 % cream Apply 1 application to affected area once daily as needed. alendronate (FOSAMAX) 70 mg tablet Take 1 tablet by mouth one time a week. Take with a full glass of water, on an empty stomach; do NOT lie down for 30minutes. PARoxetine (PAXIL) 20 mg tablet Take 2 tablets by mouth every morning AND 0.5 tablets every evening. metFORMIN ER (GLUCOPHAGE XR) 500 mg 24 hr tablet Take 1 tablet by mouth two times a day before meals. or as directed cyanocobalamin (VITAMIN B-12) 1,000 mcg tab Take 1,000 mcg by mouth once daily. HAIR, SKIN AND NAILS, BIOTIN, ORAL Take 1 capsule by mouth once daily. albuterol HFA (PROVENTIL HFA, VENTOLIN HFA) 90 mcg/actuation inhaler INHALE 2 PUFFS BY MOUTH UP TO 4 TIMES DAILY NEEDED acetaminophen (TYLENOL EX STR ARTHRITIS PAIN ORAL) Take by mouth as needed. fluticasone (FLONASE) 50 mcg/actuation nasal spray Use 2 Sprays in each nostril once daily. for sinus drainage and genstion Cholecalciferol, Vitamin D3, (VITAMIN D-3) 50 mcg (2,000 unit) cap Take 1 capsule by mouth once daily. (Patient not taking: Reported on 09/05/2024) CPAP Initiate CPAP @ 12 cm of water with humidification. Mask (per patient preference) optional chin strap (if indicated) , filters, tubing, humidifier and lifetime supplies. albuterol (PROVENTIL) 5 mg/mL nebu Inhale 0.5 mL as instructed one time only for 1 dose. 1 DOSE NOW - BACK OFFICE. PLACE 0.5 ML PER DROPPER AND 2.5 ML OF NORMAL SALINE INTO RESERVOIR. COMPOUNDED PRESCRIPTION CPAP mask COMPOUNDED PRESCRIPTION CPAP mask--Mirage FX with formal mask fitting PAST MEDICAL HISTORY Diagnosis Date Allergic rhinitis, cause unspecified Allergic rhinitis Carpal tunnel syndrome Depressive disorder, not elsewhere classified Disorder of bone and cartilage, unspecified Dysmetabolic syndrome X Dyspepsia and other specified disorders of function of stomach Dyspepsia Generalized anxiety disorder Anxiety, Generalized Generalized osteoarthrosis, involving hand Hemorrhage of gastrointestinal tract, unspecified Lichen sclerosus saw Dr. Jarvis Migraine without aura Obstructive sleep apnea (adult) (pediatric) uses C-PAP Other specified cardiac dysrhythmias(427.89) Panic disorder without agoraphobia Pure hypercholesterolemia Social History Tobacco Use Smoking status: Never Smokeless tobacco: Never Vaping Use Vaping status: Never Used Substance Use Topics Alcohol use: Yes Comment: She drinks approximately 1 sis per month Drug use: No 1. Syncope, unspecified syncope type (R55) 2. TIA (transient ischemic attack) (G45.9) - Recent episode of syncope [place] a bowling alley, accompanied by vertigo and brief loss of consciousness, witnessed by multiple individuals. No associated chest pain, palpitations, or dyspnea reported. - Neurology consult during hospitalization suggested vertigo; however, differential diagnosis includes TIA. - Previous history of severe vertigo treated successfully with physical therapy; currently scheduled for PT at [facility]. - No recurrent episodes of dizziness or syncope since discharge; no use of Meclizine post-hospitalization. - Recommended follow-up with cardiology to evaluate for potential cardiac causes of syncope, including arrhythmias. Referral to [facility] initiated. - Advised patient to follow up with neurologist Michelle Dangelo for further evaluation. - Patient understands and agrees with the plan. 3. Chronic atrial fibrillation (HCC) (I48.20) - History of chronic atrial fibrillation; no recent episodes reported. - Currently on anticoagulation therapy with Eliquis; patient is compliant with medication regimen. - Recent echocardiogram during hospitalization showed no significant abnormalities. - Referral to cardiology for comprehensive evaluation and potential rhythm monitoring. 4. Controlled type 2 diabetes mellitus without complication, without long-term current use of insulin (HCC) (E11.9) - Blood glucose levels well-controlled. - Emphasized the importance of maintaining glycemic control to reduce the risk of cerebrovascular events. - Continue current management and follow-up with primary care. Make appointment with Michelle [facility] neuro- 11 am or later Send referral to [facility] - atrial fibrillation, syncope, TIA. Christa Cabrera APRN.CNS Medical Decision Making: Problems: Moderate: New problem with uncertain prognosis Data: Unique source(s) for external note(s) reviewed: 1 Unique test result(s) reviewed: 3+ Risk: Moderate: Drug management Medical Decision Making Level: 4 - Moderate documented in this encounter [facility] 01-24-2025 Telephone encounter Note Prescription Refill Information The patient has been identified by name and date of : Yes Caregiver verified no other encounters exist for this prescription request: Yes Caregiver confirmed with patient/requestor that no other refills are due, in the near future, with this provider at this time: Yes The last office visit in the department: 09/05/24 Does the patient have a future office visit with this provider/department: Yes Requested Prescriptions Pending Prescriptions Disp Refills meclizine (ANTIVERT) 25 mg tab 30 tablet 1 Sig: Take 1 tablet by mouth every 6 hours as needed (dizziness/vertigo). Polly Ayala LPN January 24, 2025 2:[address] [facility] 01-24-2025 Miscellaneous Notes Prescription Refill Information The patient has been identified by name and date of : Yes Caregiver verified no other encounters exist for this prescription request: Yes Caregiver confirmed with patient/requestor that no other refills are due, in the near future, with this provider at this time: Yes The last office visit in the department: 09/05/24 Does the patient have a future office visit with this provider/department: Yes Requested Prescriptions Pending Prescriptions Disp Refills meclizine (ANTIVERT) 25 mg tab 30 tablet 1 Sig: Take 1 tablet by mouth every 6 hours as needed (dizziness/vertigo). Polly Ayala LPN January 24, 2025 2:13 PM Prescription Refill Information The patient has been identified by name and date of : Yes Caregiver verified no other encounters exist for this prescription request: Yes Caregiver confirmed with patient/requestor that no other refills are due, in the near future, with this provider at this time: Yes The last office visit in the department: 09-05-24 Does the patient have a future office visit with this provider/department: Yes Requested Prescriptions Pending Prescriptions Disp Refills meclizine (ANTIVERT) 25 mg tab 30 tablet 1 Sig: Take 1 tablet by mouth every 6 hours as needed (dizziness/vertigo). Patient is asking to have refilled as soon as possible, hopefully today. Katie Daniel January 24, 2025 1:54 PM documented in this encounter [facility] 01-24-2025 Telephone encounter Note Prescription Refill Information The patient has been identified by name and date of : Yes Caregiver verified no other encounters exist for this prescription request: Yes Caregiver confirmed with patient/requestor that no other refills are due, in the near future, with this provider at this time: Yes The last office visit in the department: 09-05-24 Does the patient have a future office visit with this provider/department: Yes Requested Prescriptions Pending Prescriptions Disp Refills meclizine (ANTIVERT) 25 mg tab 30 tablet 1 Sig: Take 1 tablet by mouth every 6 hours as needed (dizziness/vertigo). Patient is asking to have refilled as soon as possible, hopefully today. Katie Daniel January 24, 2025 1:[address] [facility] 01-23-2025 Consult note [facility] 01-23-2025 Discharge summary [facility] 01-23-2025 Note [facility] Medical Records Department [address] [place] [address] Discharge Summary 01/23/25 1416 MR#: [id number] Acct: [id number] Name: ELIZABETH RODRIGEZ Rep #: [id number] : 1945 79 From: Adebayo De La Cruz MD PCP: Dr. Yenifer Gonsalez MD Status:ADM JASMIN Location: [place] [address] Providers Date of Admission: 01/22/25 Primary Care Physician: Dr. Yenifer Gonsalez MD Consultations 01/23/25 07:40 Tele [Consult: Tele-Neurology] Routine Consulting Provider: [facility] Reason for Consult: vertigo EMERGENT Consult: No MD Notified: Yes Date Notified: 01/23/25 Time Notified: 08:12 Method of Notification: Answering Service Nursing Unit Staff Notify [facility] of Tele-Neurology Consult: Yes Reason For Visit: TRANSIENT ISCHEMIC ATTACK Diagnosis Discharge Diagnosis (1) Adult BMI 34.0-34.9 kg/sq m: Status: Acute Code(s): Z68.34 - Body mass index [BMI] 34.0-34.9, adult (2) Elevated blood pressure reading with diagnosis of hypertension: Status: Acute Code(s): I10 - Essential (primary) hypertension (3) Anticoagulant long-term use: Status: Acute Code(s): Z79.01 - 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 Acute vertigo ??? Patient admitted to monitored bed. Placed on Q4 neurochecks ordered MRI and 2D echo and consultation placed to teleneuro ??? Patient MRI was negative for acute CVA. Patient was seen in consultation by teleneuro recommended continuation of systemic anticoagulation meclizine as needed as well as vestibular therapy as 2. Paroxysmal atrial fibrillation ??? Patient was on verapamil for rate control as well as apixaban for systemic anticoagulation 3. Hypertension ??? Blood pressure controlled, home medications continued with dose adjustment as needed 4. Dyslipidemia ???Patient is on statin therapy, continued at home dose 5. Diabetes mellitus type 2 ??? On metformin held on admission placed on Accu-Cheks AC and at bedtime with sliding scale coverage 6. Depression ??? Patient is on Paxil, continue 7. Class I obesity with BMI of 34.4 ??? Complicating care weight loss advised 8. Peripheral neuropathy ??? Patient is on gabapentin did continue 9. DVT prophylaxis ??? On apixaban Medications at Discharge Home Medications paroxetine HCl 20 mg tablet (Paxil) 40 mg PO DAILY DEPRESSION 04/03/16 verapamil 80 mg tablet 80 mg PO BID HEART 04/03/16 gabapentin 400 mg capsule 400 mg PO TID nerve pain 10/29/20 fluticasone propionate 50 mcg/actuation nasal spray,suspension (Flonase Allergy Relief) 1 spray intranasal DAILY 09/09/21 apixaban 5 mg tablet (Eliquis) 5 mg PO BID 30 days #60 tabs 03/25/23 biotin 1 mg capsule 1 mg PO DAILY 01/22/25 cholecalciferol (vitamin D3) 50 mcg (2,000 unit) tablet (Thera-D) 50 mcg PO DAILY 01/22/25 magnesium 250 mg tablet 250 mg PO DAILY 01/22/25 meclizine 25 mg tablet 25 mg PO 4X/DAY PRN Dizziness 01/22/25 mecobalamin (vitamin B12) 1,000 mcg lozenges 1,000 mcg PO DAILY 01/22/25 metformin 500 mg tablet,extended release 24 hr 500 mg PO BID 01/22/25 multivitamin (Multiple Vitamins tablet) 1 tab PO DAILY 01/22/25 paroxetine HCl 20 mg tablet 10 mg PO QHS 01/22/25 rosuvastatin 10 mg tablet 10 mg PO DAILY 01/22/25 Hospital Course Summary of Care Provided Minutes Spent on Discharge: 35 Physical Exam Narrative GENERAL: cooperative HEENT: Atraumatic; normocephalic EYES; Anicteric, Normal Conjunctiva NECK; supple, normal thyroid, RESPIRATORY: Diminished to auscultation CARDIOVASCULAR: Regular S1 S2, GI: soft, normoactive bowel sounds, : No Renal angle tenderness; EXTREMITIES: No edema, no clubbing, MUSCULOSKELETAL: no muscle wasting NEURO: Awake; no lateralizing signs. SKIN: No Rash PSYCH; Flat affect Weight / BMI Weight Weight: 82.5 kg Body Mass Index (BMI) 34.3 ABG / Lab / Microbiology Data 01/23/25 04:04 01/23/25 04:04 Laboratory: Laboratory Results - last 24 hr 01/22/25 17:20: WBC 13.5 H, RBC 4.37, Hgb 13.7, Hct 41.0, MCV 93.8, MCH 31.4, MCHC 33.4, RDW Std Deviation 55.5 H, RDW Coeff of Kadi 16.2 H, Plt Count 386, MPV 11.5, Immature Gran % (Auto) 0.300, N eut % (Auto) 39.9 L, Lymph % (Auto) 46.6 H, [place] % (Auto) 12.1 H, Eos % (Auto) 0.8, Baso % (Auto) 0.3, Absolute Neuts (auto) 5.4, Absolute Lymphs (auto) 6.29 H, Nucleated RBC % 0, Platelet Estimate ADEQUATE, PT 16.2 H, INR 1.3, APTT 26.8, Sodium 136, Potassium 4.0, Chloride 99, Carbon Dioxide 23.2, Anion Gap 14, BUN 11, Creatinine 0.85, Estim Creat Clear Calc 54.29, Est GFR (MDRD) Non-Af 70, BUN/Creatin (more content not included)... [facility] 01-23-2025 Consult note Note Date/Time January 23, 2025 11:23am [facility] Medical Records Department [address] [place] [address] Consultation - Neurology 01/23/25 1052 MR#: [id number] Acct: [id number] Name: ELIZABETH RODRIGEZ Rep #:[id number] : 1945 79 From: Marilynn Lala MD PCP: Dr. Yenifer Gonsalez MD Status:AD M [facility] Location: [place] [address] Assessment and Plan: Neuro Assessment/Plan ELIZABETH RODRIGEZ is a 79 F with a past medical history of vertigo, being evaluated byTeleneurology for vertigo lasted for one hour. Appears to be peripheral in etiology given previous history of it. CT head/CT angio negative .MRI Brain pending. Recommend continue Eliquis, statin .Can try meclizine 25 TID prn. Recommend outpatient vestibular rehab. Diagnosis:Peripheral Vertigo I personally attended this patient and spent a total time of 55 minutes evaluating this patient including clinical assessment, review of chart, medical history imaging, and determining appropriate treatment and workup. HPI Consult Data Date of Consult: 01/23/25 HPI Narrative HPI Narrative: ELIZABETH RODRIGEZ, is a 79 F who presents with vertginour symptoms .She was in her usualstate ofheath and was at [facility] shoes when she dveloped acute onset vertiginous symptoms adn double vision. She lso felt sick to the stomach and nauseasted .Symptoms lasted for hour. Denies any focal weakness . 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 Arthritis Obesity Hyperlipidemia Vulvar dermatitis Lichen sclerosus Diabetes Sarcoidosis Spleen anomaly Splenomegaly History of blood clots Sleep apnea Hemorrhoids BMI 36.0-36.9,adult History of PSVT (paroxysmal supraventricular tachycardia) Home Medications ?Medication ?Instructions ?Recorded ?Last Taken ?Type paroxetine HCl 20 mg tablet (Paxil) 40 mg PO DAILY DEP RESSION 04/03/16 01/22/25 History verapamil 80 mg tablet 80 mg PO BID HEART 04/03/16 01/22/25 History gabapentin 400 mg capsule 400 mg PO TID nerve pain 11/1701/22/25 History fluticasone propionate 50 1 spray intranasal DAILY 01/21/25 History mcg/actuation nasal spray,suspension (Flonase Allergy Relief) apixaban 5 mg tablet (Eliquis) 5 mg PO BID 30 days #60 tabs 12/19/22 01/22/25 Rx biotin 1 mg capsule 1 mg PO DAILY 01/22/2501/22 History cholecalciferol (vitamin D3) 50 50 mcg PO DAILY 01/22/25 History mcg (2,000 unit) tablet (Thera-D) magnesium 250 mg tablet 250 mg PO DAILY 01/22/25 History meclizine 25 mg tablet 25 mg PO 4X/DAY PRN Dizzines s 01/22/25 Unknown History mecobalamin (vitamin B12) 1,000 1,000 mcg PO DAILY 01/22/25 History mcg lozenges metformin 500 mg tablet,extended 500 mg PO BID 5 01/22/25 History release 24 hr multivitamin (Multiple Vitamins 1 tab PO DAILY 5 01/22/25 History tablet) paroxetine HCl 20 mg tablet 10 mg PO QHS 01/22/2512/27 History rosuvastatin 10 mg tablet 10 mg PO DAILY 01/22/2512/27 History Allergy/AdvReac Type Severity Reaction Status Date / Time lidocaine Allergy Intermediate tachycardia Verified 06/23/23 10:34 Penicillins Allergy Hives Verified 06/23/23 10:34 atorvastatin AdvReac Pain in Verified 06/23/23 10:34 joints hydrocodone bitartrate (From AdvReac Vomiting Verified 06/23/23 10:34 Vicodin) oxycodone HCl (From Percocet) AdvReac Vomiting Verified 06/23/23 10:34 Family History Daughter Hypertension Father Heart disease Mother Dementia Surgical History History of breast biopsy H/O splenectomy History of hysterectomy Social History Smoking Status: Never smoker alcohol intake: current details: social substance use type: does not use caffeine: Yes what type of physical activity do you participate in: walking seatbelt use: always do you feel safe at home: Yes 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 Vital Signs Vital Signs Vital Signs: 01/22/25 17:45 01/22/25 17:48 01/22/25 17:54 Temperature 98.0 F Temperature Source Oral Pulse Rate 90 Respiratory Rate 14 Respiratory Effort Normal Respiratory Depth Respiratory Pattern Normal Blood Pressure 160/81 H Blood Pressure Mean 107 Blood Pressure Source Blood Pressure Position Blood Pressure Location Pulse Ox 95 Oxygen Delivery Method Room Air Room Air Oxygen Flow Rate (L/min) 01/22/25 18:09 01/22/25 18:24 01/22/25 19:00 Temperature 98.1 F Temperature Source Oral Pulse Rate 93 85 83 Respiratory Rate 20 H 16 14 Respiratory Effort Respiratory Depth Respiratory Pattern Blood Pressure 156/93 H 143/86 H 144/81 H Blood Pressure Mean 114 105 102 Blood Pressure Source Blood Pressure Position Blood Pressure Location Pulse Ox 95 93 94 Oxygen Delivery Method Room Air Room Air Room Air Oxygen Flow Rate (L/min) 01/22/25 19:30 01/22/25 20:00 01/22/25 20:13 Temperature 98.4 F 98.4 F Temperature Source Oral Pulse Rate 85 92 90 Respiratory Rate 20 H 17 18 Respiratory Effort Respiratory Depth Respiratory Pattern Blood Pressure 139/77 H 162/87 H 162/87 H Blood Pressure Mean 97 112 112 Blood Pressure Source Blood Pressure Position Blood Pressure Location Pulse Ox 93 92 95 Oxygen Delivery Method Room Air Room Air Oxygen Flow Rate (L/min) 01/22/25 20:41 01/22/25 20:45 01/22/25 21:00 Temperature Temperature Source Pulse Rate 88 91 85 Respiratory Rate 14 18 13 Respiratory Effort Respiratory Depth Respiratory Pattern Blood Pressure 133/74 H Blood Pressure Mean 91 Blood Pressure Source Blood Pressure Position Blood Pressure Location Pulse Ox 97 96 96 Oxygen Delivery Method Oxygen Flow Rate (L/min) 01/22/25 21:20 01/22/25 22:00 01/22/25 23:23 Temperature 97.8 F 98 F Temperature Source Oral Oral Pulse Rate 87 80 Respiratory Rate 16 16 Respiratory Effort Normal Non-Labored Respiratory Depth Normal Respiratory Pattern Normal Blood Pressure 112/99 H 142/77 H Blood Pressure Mean 103 98 Blood Pressure Source Monitor Monitor Blood Pressure Position Semi-Fowlers Semi-Fowlers Blood Pressure Location Right Arm Right Forearm Pulse Ox 95 93 Oxygen Delivery Method Room Air Room Air Room Air Oxygen Flow Rate (L/min) 01/23/25 01:20 01/23/25 05:20 01/23/25 06:50 Temperature 98 F 98 F Temperature Source Oral Oral Pulse Rate 82 86 Respiratory Rate 16 16 Respiratory Effort Respiratory Depth Respiratory Pattern Blood Pressure 100/60 131/71 H Blood Pressure Mean 73 91 Blood Pressure Source Monitor Monitor Blood Pressure Position Semi-Fowlers Semi-Fowlers Blood Pressure Location Right Arm Right Arm Pulse Ox 92 96 95 Oxygen Delivery Method Room Air Nasal Cannula Nasal Cannula Oxygen Flow Rate (L/min) 2 2 01/23/25 09:19 01/23/25 09:30 Temperature 98.7 F Temperature Source Oral Pulse Rate 88 Respiratory Rate 17 Respiratory Effort Respiratory Depth Respiratory Pattern Blood Pressure 135/83 H Blood Pressure Mean 100 Blood Pressure Source Monitor Blood Pressure Position Semi-Fowlers Blood Pressure Location Left Arm Pulse Ox 95 Oxygen Delivery Method Room Air Room Air Oxygen Flow Rate (L/min) Weight Weight: 82.5 kg Body Mass Index (BMI) 34.3 EEG Results Procedure Details EEG Procedure Details: ELIZABETH RODRIGEZ is a 79 year old F with a past medical history of , who presents for evaluation of Electroencephalogram on DATE at TIME Physical Exam Neuro Neuro Narrative: -? General: Laying comfortably in bed; in no acute distress. -? HENT: Normal oropharynx and mucosa. Normal external appearance of ears and nose. Exophthalmos. -? Neck: Supple, no pain or tenderness -? CV:? No peripheral edema. -? Pulmonary:? Normal respiratory effort. -? Ext: No cyanosis, edema, or deformity -? Skin: No rash. Normal palpation of skin.? -? Musculoskeletal: full range of motion; no joint tenderness. Normal digits and nails by inspection. No clubbing. -? NEURO: -? Mental Status: The patient was alert and oriented to time, place, andperson. Normal recent/remote memory, concentration, and general fund of knowledge. -? Language: speech is fluent.? Naming, repetition, fluency, and comprehension intact. -? Cranial Nerves: PERRL 3 mm/brisk. EOMI, visual trotter full, no facialasymmetry, facial sensation intact, hearing intact, tongue midline, no evidence of atrophy or fibrillations. As performed by the nurse. Sternocleidomastoid and trapezius were equally strong. Soft palate raisesequally, no uvular deviations -? Motor: normal bulk, tone, and strength throughout. No pronator drift or satelliting. Upper and lower extremities equal bilaterally. l R L l R L -? Tone: is normal and bulk is normal -? Sensation- Intact to light touch bilaterally -? Coordination: No dysmetria on [id number], finger follow finger or [id number]. -? Gait- Gait initiation was normal. Narrow base with good heel strike and stride length was observed during ambulation. Turns were in stride. Patient was able to walk normally in tandem. Romberg was normal. Lab / Micro Data 01/23/25 04:04 01/23/25 04:04 Labs: Laboratory Results - last 24 hr 01/22/25 17:20: WBC 13.5 H, RBC 4.37, Hgb 13.7, Hct 41.0, MCV 93.8, MCH 31.4, MCHC 33.4, RDW Std Deviation 55.5 H, RDW Coeff of Kadi 16.2 H, Plt Count 386, MPV11.5, Immature Gran % (Auto) 0.300, Neut % (Auto) 39.9 L, Lymph % (Auto) 46.6 H,[place] % (Auto) 12.1 H, Eos % (Auto) 0.8, Baso % (Auto) 0.3, Absolute Neuts (auto)5.4, Absolute Lymphs (auto) 6.29 H, Nucleated RBC % 0, Platelet Estimate ADEQUATE, PT 16.2 H, INR 1.3, APTT 26.8, Sodium 136, Potassium 4.0, Chloride 99,Carbon Dioxide 23.2, Anion Gap 14, BUN 11, Creatinine 0.85, Estim Creat Clear Calc 54.29, Est GFR (MDRD) Non-Af 70, BUN/Creatinine Ratio 13.0, Glucose 102 H, Calcium 9.7, Troponin T High Sens 8 01/22/25 18:10: POC Glucose 97 01/22/25 19:27: Troponin T Hi Sens 2 Hr 7 01/22/25 22:44: Troponin T Hi Sens 4Hr 13 01/23/25 04:04: WBC 10.9, RBC 4.31, Hgb 13.3, Hct 40.2, MCV 93.3, MCH 30.9, MCHC33.1, RDW Std Deviation 54.5 H, RDW Coeff of Kadi 15.9 H, Plt Count 414, MPV 10.2, Immature Gran % (Auto) 0.500, Neut % (Auto) 50.3, Lymph % (Auto) 36.2, [place] % (Auto) 11.5 H, Eos % (Auto) 1.1, Baso % (Auto) 0.4, Absolute Neuts (auto) 5.5, Absolute Lymphs (auto) 3.95, Nucleated RBC % 0, PT 15.8 H, INR 1.2, Sodium 137, Potassium 3.9, Chloride 101, Carbon Dioxide 23.5, Anion Gap 12, BUN 10, Creatinine 0.75, Estim Creat Clear Calc 57.34, Est GFR (MDRD) Non-Af 82, BUN/Creatinine Ratio 12.8, Glucose 129 H, Calcium 9.4, Triglycerides 221 H, Cholesterol 165, LDL Cholesterol, Calc 85, VLDL Cholesterol 44 H, HDL Cholesterol 36 L, Cholesterol/HDL Ratio 4.60 Imaging Radiology Impression Brain CT 01/22/25 17:54 IMPRESSION: 1. No acute intracranial finding. 2. Findings of chronic microvascular ischemic changes and age-related changes. Reading Location: [facility] Head/Neck CTA 01/22/25 17:55 IMPRESSION: 1. No large vessel occlusion, AVM or aneurysm. 2. No stenosis of the cervical carotid arteries by NASCET criteria. Reading Location: [facility] Active Medications Active Medications Active Medications: Current Medications Generic Name Dose Route Start Last Admin Trade Name Freq PRN Reason Stop Dose Admin Apixaban 5 mg 01/22/25 22:00 01/23/25 09:25 Apixaban 5 Mg Tablet PO 5 mg BID SIMON Administration Cholecalciferol 50 mcg 01/23/25 10:00 01/23/25 09:25 Cholecalciferol (Vit D3) 25 Mcg Tablet (1,000 Units) PO 50 mcg DAILY SIMON Administration Cyanocobalamin 1,000 mcg 01/23/25 10:00 01/23/25 09:26 Cyanocobalamin 500 Mcg Tablet PO 1,000 mcg DAILY SIMON Administration Fluticasone Propionate 1 spray 01/23/25 10:00 01/23/25 09:26 Fluticasone 0.05% 1 [place] Nasal.Sry NASAL 1 spray DAILY SIMON Administration Gabapentin 400 mg 01/22/25 22:00 01/23/25 05:34 Gabapentin 400 Mg Capsule PO 400 mg TID SIMON Administration Sodium Chloride 100 mls @ 15 mls/hr 01/22/25 23:44 IV .Q6H40M PRN Saline Flush Sodium Chloride 100 mls @ 15 mls/hr 01/22/25 23:44 IV .Q6H40M PRN Additional IVPB Infusion Labetalol HCl 20 mg 01/22/25 17:54 Labetalol 20mg/4ml Syringe IV 01/23/25 17:54 X1 PRN Blood Pressure Labetalol HCl 10 - 20 mg 01/22/25 21:22 Labetalol 20mg/4ml Syringe IV 01/23/25 21:22 Q10M PRN PRN maintain BP parameters with HR >/=60 Magnesium Chloride 64 mg 01/23/25 10:00 01/23/25 09:26 Magnesium Chloride 64 Mg Delay Rel.Tablet PO Not Given DAILY SIMON Meclizine HCl 25 mg 01/22/25 21:22 Meclizine Hcl 25 Mg Tablet PO 4X/DAY PRN PRN DIZZINESS Metformin HCl 500 mg 01/23/25 08:00 01/23/25 08:14 Metformin (Xr) 500 Mg Tablet PO Not Given BIDCM SIMON Multivitamins 1 tablet 01/23/25 08:00 01/23/25 09:25 Multivitamins,Therapeutic Tablet PO 1 tablet DAILYCM SIMON Administration Paroxetine HCl 40 mg 01/23/25 10:00 01/23/25 09:25 Paroxetine 20 Mg Tablet PO 40 mg DAILY SIMON Administration Paroxetine HCl 10 mg 01/22/25 22:00 01/22/25 23:26 Paroxetine 10 Mg Tablet PO 10 mg QHS SIMON Administration Rosuvastatin Calcium 10 mg 01/22/25 22:00 01/22/25 23:29 Rosuvastatin Calcium 5 Mg Tablet PO 10 mg 2200 SIMON Administration Sodium Chloride 10 - 40 ml 01/22/25 23:44 0.9% Saline Lock 10 Ml Syringe IV UD PRN SALINE FLUSH Verapamil HCl 80 mg 01/22/25 22:00 01/23/25 08:14 Verapamil 80 Mg Tablet PO Not Given BID COUNTS INCLUDE 234 BEDS AT THE [facility] Protocol NIHSS NIHSS Nursing Documentation NIHSS Nursing Documentation: NIHSS: Ischemic Stroke/TIA Start: 01/22/25 21:22 Text: For PCU Patients: NIH and Neuro Check every 4 Status: Active hours, PRN and with change in RN caregiver. Freq: [id number] Protocol: Activity Type Activity Date Activity User E-sign Co-sign Detail Recorded Client Recorded Date Recorded By Document 01/23/25 09:19 [id number] 01/23/25 09:21 01/23/25 09:19 NIH Stroke Scale [NIHSS] A score of 0 is normal or asymptomatic . Total possible score is 42. Inpatient: RN or Physician to activate a stroke alert for onset of new stroke symptoms or with NIHSS increase >/= 3 points. Following change in neurological status, NIHSS will be performed per physician order or more frequently PRN. -1a. Level of Consciousness 0 - Alert; keenly responsive -1b. LOC Questions 0 - Answers BOTH questions correctly -1c. LOC Commands 0 - Performs BOTH tasks correctly -2. Best Gaze 0 - Normal -3. Visual 0 - No visual loss -4. Facial Palsy 0 - Normal symmetrical movements -5a. Left Arm 0 - No drift; arm holds 90 ( or 45) degrees for full 10 seconds -5b. Right Arm 0 - No drift; arm holds 90 ( or 45) degrees for full 10 seconds -6a. Left Leg 0 - No drift; leg holds 30- degree position for full 5 seconds -6b. Right Leg 0 - No drift; leg holds 30- degree position for full 5 seconds -7. Limb Ataxia 0 - Absent -8. Sensory 0 - Normal; no sensory loss -9. Best Language 0 - No aphasia; normal -10. Dysarthria 0 - Normal -11. Extinction and Inattention 0 - No abnormality -Total 0 Query Text:A score of 0 is normal or asymptomatic. Total possible score is 42 . ED: Notify Physician for NIHSS increase by > / = 3 points. Inpatient: RN or Physician to activate a stroke alert for NIHSS increase of > / = 3 points. Coma Scale [Assess] -Eye Opening Spontaneous -Motor Obeys Commands -Verbal Oriented [Total] -Coma Scale Total 15 01/23/25 1123 <Electronically signed by Marilynn Lala MD> Cosigner Signature (if applicable): CC: Dr. Yenifer Gonsalez MD~ Signed [facility] Work Phone: [phone]) 903-957304-29-2025 Progress note Author Adebayo De La Cruz [facility] Note Date/Time January 23, 2025 10: [address] [place] [address] [facility] Medical Records Department [address] [place] [address] Progress Note - Hospitalist 01/23/25 0737 MR#: [id number] Acct: [id number] Name: ELIZABETH RODRIGEZ Rep #:[id number] : 1945 79 From: Adebayo De La Cruz MD PCP: Dr. 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3 Lab / Micro Data 01/23/25 04:04 01/23/25 04:04 Labs: Laboratory Results - last 24 hr 01/22/25 17:20: WBC 13.5 H, RBC 4.37, Hgb 13.7, Hct 41.0, MCV 93.8, MCH 31.4, MCHC 33.4, RDW Std Deviation 55.5 H, RDW Coeff of Kadi 16.2 H, Plt Count 386, MPV 11.5, Immature Gran % (Auto) 0.300, Neut % (Auto) 39.9 L, Lymph % (Auto) 46.6 H, [place] % (Auto) 12.1 H, Eos % (Auto) 0.8, Baso % (Auto) 0.3, Absolute Neuts (auto) 5.4, Absolute Lymphs (auto) 6.29 H, Nucleated RBC % 0, Platelet Estimate ADEQUATE, PT 16.2 H, INR 1.3, APTT 26.8, Sodium 136, Potassium 4.0, Chloride 99, Carbon Dioxide 23.2, Anion Gap 14, BUN 11, Creatinine 0.85, Estim Creat Clear Calc 54.29, Est GFR (MDRD) Non-Af 70, BUN/Creatinine Ratio 13.0, Glucose 102 H, Calcium 9.7, Troponin T High Sens 8 01/22/25 18:10: POC Glucose 97 01/22/25 19:27: Troponin T Hi Sens 2 Hr 7 01/22/25 22:44: Troponin T Hi Sens 4Hr 13 01/23/25 04:04: WBC 10.9, RBC 4.31, Hgb 13.3, Hct 40.2, MCV 93.3, MCH 30.9, MCHC 33.1, RDW Std Deviation 54.5 H, RDW Coeff of Kadi 15.9 H, Plt Count 414, MPV 10.2, Immature Gran % (Auto) 0.500, Neut % (Auto) 50.3, Lymph % (Auto) 36.2, [place] % (Auto) 11.5 H, Eos % (Auto) 1.1, Baso % (Auto) 0.4, Absolute Neuts (auto) 5.5, Absolute Lymphs (auto) 3.95, Nucleated RBC % 0, PT 15.8 H, INR 1.2, Sodium 137, Potassium 3.9, Chloride 101, Carbon Dioxide 23.5, Anion Gap 12, BUN 10, Creatinine 0.75, Estim Creat Clear Calc 57.34, Est GFR (MDRD) Non-Af 82, BUN/Creatinine Ratio 12.8, Glucose 129 H, Calcium 9.4, Triglycerides 221 H, Cholesterol 165, LDL Cholesterol, Calc 85, VLDL Cholesterol 44 H, HDL Cholesterol 36 L, Cholesterol/HDL Ratio 4.60 Radiography Diagnostic Testing: Radiology Impression Brain CT 01/22/25 17:54 IMPRESSION: 1. No acute intracranial finding. 2. Findings of chronic microvascular ischemic changes and age-related changes. Reading Location: [facility] Head/Neck CTA 01/22/25 17:55 IMPRESSION: 1. No large vessel occlusion, AVM or aneurysm. 2. No stenosis of the cervical carotid arteries by NASCET criteria. Reading Location: [facility] Physical Exam Narrative GENERAL: cooperative HEENT: Atraumatic; normocephalic EYES; Anicteric, Normal Conjunctiva NECK; supple, normal thyroid, RESPIRATORY: Diminished to auscultation CARDIOVASCULAR: Regular S1 S2, GI: soft, normoactive bowel sounds, : No Renal angle tenderness; EXTREMITIES: No edema, no clubbing, MUSCULOSKELETAL: no muscle wasting NEURO: Awake; no lateralizing signs. SKIN: No Rash PSYCH; Flat affect Assessment & Plan Assessment/Plan (1) Adult BMI 34.0-34.9 kg/sq m: (2) Elevated blood pressure reading with diagnosis of hypertension: (3) Anticoagulant long-term use: (4) Vertigo of central origin: PLAN: Plan Patient is a 79-year-old lady with past medical history significant for paroxysmal atrial fibrillation hypertension who presented with acute onset of vertigo admitted to monitored bed for further evaluation 1. Acute vertigo ? Patient admitted to monitored bed. Placed on Q4 neurochecks ordered MRI and 2D echo and consultation placed to teleneuro 2. Paroxysmal atrial fibrillation ? Patient was on verapamil for rate control as well as apixaban for systemic anticoagulation 3. Hypertension ? Blood pressure controlled, home medications continued with dose adjustment as needed 4. Dyslipidemia ?Patient is on statin therapy, continued at home dose 5. Diabetes mellitus type 2 ? On metformin held on admission placed on Accu-Cheks AC and at bedtime with sliding scale coverage 6. Depression ? Patient is on Paxil, continue 7. Class I obesity with BMI of 34.4 ? Complicating care weight loss advised 8. Peripheral neuropathy ? Patient is on gabapentin did continue 9. DVT prophylaxis ? On apixaban Charges/Coding Visit Charges Inpatient E&M: 03940 Subs Hosp L2 NIHSS NIHSS Nursing Documentation NIHSS Nursing Documentation: NIHSS: Ischemic Stroke/TIA Start: 01/22/25 21:22 Text: For PCU Patients: NIH and Neuro Check every 4 Status: Active hours, PRN and with change in RN caregiver. Freq: [id number] Protocol: Activity Type Activity Date Activity User E-sign Co-sign Detail Recorded Client Recorded Date Recorded By Document 01/23/25 05:20 KW [id number] 01/23/25 05:30 KW 01/23/25 05:20 NIH Stroke Scale [NIHSS] A score of 0 is normal or asymptomatic . Total possible score is 42. Inpatient: RN or Physician to activate a stroke alert for onset of new stroke symptoms or with NIHSS increase >/= 3 points. Following change in neurological status, NIHSS will be performed per physician order or more frequently PRN. -1a. Level of Consciousness 0 - Alert; keenly responsive -1b. LOC Questions 0 - Answers BOTH questions correctly -1c. LOC Commands 0 - Performs BOTH tasks correctly -2. Best Gaze 0 - Normal -3. Visual 0 - No visual loss -4. Facial Palsy 0 - Normal symmetrical movements -5a. Left Arm 0 - No drift; arm holds 90 ( or 45) degrees for full 10 seconds -5b. Right Arm 0 - No drift; arm holds 90 ( or 45) degrees for full 10 seconds -6a. Left Leg 0 - No drift; leg holds 30- degree position for full 5 seconds -6b. Right Leg 0 - No drift; leg holds 30- degree position for full 5 seconds -7. Limb Ataxia 0 - Absent -8. Sensory 0 - Normal; no sensory loss -9. Best Language 0 - No aphasia; normal -10. Dysarthria 0 - Normal -11. Extinction and Inattention 0 - No abnormality -Total 0 Query Text:A score of 0 is normal or asymptomatic. Total possible score is 42 . ED: Notify Physician for NIHSS increase by > / = 3 points. Inpatient: RN or Physician to activate a stroke alert for NIHSS increase of > / = 3 points. Coma Scale [Assess] -Eye Opening Spontaneous -Motor Obeys Commands -Verbal Oriented [Total] -Coma Scale Total 15 01/23/25 1023 <Electronically signed by Adebayo De La Cruz MD> Cosigner Signature (if applicable): CC: ~ Signed [facility] Work Phone: [phone] Consult note [facility] Medical Records Department [address] [place] [id number] Consultation - Neurology 01/23/25 1052 MR#: [id number] Acct: [id number] Name: ELIZABETH RODRIGEZ Rep #:[id number] : 1945 79 From: Marilynn Lala MD PCP: Dr. Yenifer Gonsalez MD Status:JARED Arroyo JASMIN Location: [place] [address] Assessment and Plan: Neuro Assessment/Plan ELIZABETH RODRIGEZ is a 79 F with a past medical history of vertigo, being evaluated byTeleneurology for vertigo lasted for one hour. Appears to be peripheral in etiology given previous history of it. CT head/CT angio negative .MRI Brain pending. Recommend continue Eliquis, statin .Can try meclizine 25 TID prn. Recommend outpatient vestibular rehab. Diagnosis:Peripheral Vertigo I personally attended this patient and spent a total time of 55 minutes evaluating this patient including clinical assessment, review of chart, medical history imaging, and determining appropriate treatment and workup. HPI Consult Data Date of Consult: 01/23/25 HPI Narrative HPI Narrative: ELIZABETH RODRIGEZ, is a 79 F who presents with vertginour symptoms .She was in her usualstate ofhea and [facility] she dveloped acute onset vertiginous symptoms adn double vision. She lso felt sick to the stomach and nauseasted .Symptoms lasted for hour. Denies any focal weakness . 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 Arthritis Obesity Hyperlipidemia Vulvar dermatitis Lichen sclerosus Diabetes Sarcoidosis Spleen anomaly Splenomegaly History of blood clots Sleep apnea Hemorrhoids BMI 36.0-36.9,adult History of PSVT (paroxysmal supraventricular tachycardia) Home Medications ?Medication ?Instructions ?Recorded ?Last Taken ?Type paroxetine HCl 20 mg tablet (Paxil) 40 mg PO DAILY DEP RESSION 04/03/16 01/22/25 History verapamil 80 mg tablet 80 mg PO BID HEART 04/03/16 01/22/25 History gabapentin 400 mg capsule 400 mg PO TID nerve pain 11/1701/22/25 History fluticasone propionate 50 1 spray intranasal DAILY 01/21/25 History mcg/actuation nasal spray,suspension (Flonase Allergy Relief) apixaban 5 mg tablet (Eliquis) 5 mg PO BID 30 days #60 tabs 12/19/22 01/22/25 Rx biotin 1 mg capsule 1 mg PO DAILY 01/22/2501/22 History cholecalciferol (vitamin D3) 50 50 mcg PO DAILY 01/22/25 History mcg (2,000 unit) tablet (Thera-D) magnesium 250 mg tablet 250 mg PO DAILY 01/22/25 History meclizine 25 mg tablet 25 mg PO 4X/DAY PRN Dizzines s 01/22/25 Unknown History mecobalamin (vitamin B12) 1,000 1,000 mcg PO DAILY 01/22/25 History mcg lozenges metformin 500 mg tablet,extended 500 mg PO BID 5 01/22/25 History release 24 hr multivitamin (Multiple Vitamins 1 tab PO DAILY 5 01/22/25 History tablet) paroxetine HCl 20 mg tablet 10 mg PO QHS 01/22/2512/27 History rosuvastatin 10 mg tablet 10 mg PO DAILY 01/22/2512/27 History Allergy/AdvReac Type Severity Reaction Status Date / Time lidocaine Allergy Intermediate tachycardia Verified 06/23/23 10:34 Penicillins Allergy Hives Verified 06/23/23 10:34 atorvastatin AdvReac Pain in Verified 06/23/23 10:34 joints hydrocodone bitartrate (From AdvReac Vomiting Verified 06/23/23 10:34 Vicodin) oxycodone HCl (From Percocet) AdvReac Vomiting Verified 06/23/23 10:34 Family History Daughter Hypertension Father Heart disease Mother Dementia Surgical History History of breast biopsy H/O splenectomy History of hysterectomy Social History Smoking Status: Never smoker alcohol intake: current details: social substance use type: does not use caffeine: Yes what type of physical activity do you participate in: walking seatbelt use: always do you feel safe at home: Yes 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 Vital Signs Vital Signs Vital Signs: 01/22/25 17:45 01/22/25 17:48 01/22/25 17:54 Temperature 98.0 F Temperature Source Oral Pulse Rate 90 Respiratory Rate 14 Respiratory Effort Normal Respiratory Depth Respiratory Pattern Normal Blood Pressure 160/81 H Blood Pressure Mean 107 Blood Pressure Source Blood Pressure Position Blood Pressure Location Pulse Ox 95 Oxygen Delivery Method Room Air Room Air Oxygen Flow Rate (L/min) 01/22/25 18:09 01/22/25 18:24 01/22/25 19:00 Temperature 98.1 F Temperature Source Oral Pulse Rate 93 85 83 Respiratory Rate 20 H 16 14 Respiratory Effort Respiratory Depth Respiratory Pattern Blood Pressure 156/93 H 143/86 H 144/81 H Blood Pressure Mean 114 105 102 Blood Pressure Source Blood Pressure Position Blood Pressure Location Pulse Ox 95 93 94 Oxygen Delivery Method Room Air Room Air Room Air Oxygen Flow Rate (L/min) 01/22/25 19:30 01/22/25 20:00 01/22/25 20:13 Temperature 98.4 F 98.4 F Temperature Source Oral Pulse Rate 85 92 90 Respiratory Rate 20 H 17 18 Respiratory Effort Respiratory Depth Respiratory Pattern Blood Pressure 139/77 H 162/87 H 162/87 H Blood Pressure Mean 97 112 112 Blood Pressure Source Blood Pressure Position Blood Pressure Location Pulse Ox 93 92 95 Oxygen Delivery Method Room Air Room Air Oxygen Flow Rate (L/min) 01/22/25 20:41 01/22/25 20:45 01/22/25 21:00 Temperature Temperature Source Pulse Rate 88 91 85 Respiratory Rate 14 18 13 Respiratory Effort Respiratory Depth Respiratory Pattern Blood Pressure 133/74 H Blood Pressure Mean 91 Blood Pressure Source Blood Pressure Position Blood Pressure Location Pulse Ox 97 96 96 Oxygen Delivery Method Oxygen Flow Rate (L/min) 01/22/25 21:20 01/22/25 22:00 01/22/25 23:23 Temperature 97.8 F 98 F Temperature Source Oral Oral Pulse Rate 87 80 Respiratory Rate 16 16 Respiratory Effort Normal Non-Labored Respiratory Depth Normal Respiratory Pattern Normal Blood Pressure 112/99 H 142/77 H Blood Pressure Mean 103 98 Blood Pressure Source Monitor Monitor Blood Pressure Position Semi-Fowlers Semi-Fowlers Blood Pressure Location Right Arm Right Forearm Pulse Ox 95 93 Oxygen Delivery Method Room Air Room Air Room Air Oxygen Flow Rate (L/min) 01/23/25 01:20 01/23/25 05:20 01/23/25 06:50 Temperature 98 F 98 F Temperature Source Oral Oral Pulse Rate 82 86 Respiratory Rate 16 16 Respiratory Effort Respiratory Depth Respiratory Pattern Blood Pressure 100/60 131/71 H Blood Pressure Mean 73 91 Blood Pressure Source Monitor Monitor Blood Pressure Position Semi-Fowlers Semi-Fowlers Blood Pressure Location Right Arm Right Arm Pulse Ox 92 96 95 Oxygen Delivery Method Room Air Nasal Cannula Nasal Cannula Oxygen Flow Rate (L/min) 2 2 01/23/25 09:19 01/23/25 09:30 Temperature 98.7 F Temperature Source Oral Pulse Rate 88 Respiratory Rate 17 Respiratory Effort Respiratory Depth Respiratory Pattern Blood Pressure 135/83 H Blood Pressure Mean 100 Blood Pressure Source Monitor Blood Pressure Position Semi-Fowlers Blood Pressure Location Left Arm Pulse Ox 95 Oxygen Delivery Method Room Air Room Air Oxygen Flow Rate (L/min) Weight Weight: 82.5 kg Body Mass Index (BMI) 34.3 EEG Results Procedure Details EEG Procedure Details: ELIZABETH RORDIGEZ is a 79 year old F with a past medical history of , who presents for evaluation of Electroencephalogram on DATE at TIME Physical Exam Neuro Neuro Narrative: -? General: Laying comfortably in bed; in no acute distress. -? HENT: Normal oropharynx and mucosa. Normal external appearance of ears and nose. Exophthalmos. -? Neck: Supple, no pain or tenderness -? CV:? No peripheral edema. -? Pulmonary:? Normal respiratory effort. -? Ext: No cyanosis, edema, or deformity -? Skin: No rash. Normal palpation of skin.? -? Musculoskeletal: full range of motion; no joint tenderness. Normal digits and nails by inspection. No clubbing. -? NEURO: -? Mental Status: The patient was alert and oriented to time, place, andperson. Normal recent/remote memory, concentration, and general fund of knowledge. -? Language: speech is fluent.? Naming, repetition, fluency, and comprehension intact. -? Cranial Nerves: PERRL 3 mm/brisk. EOMI, visual trotter full, no facialasymmetry, facial sensation intact, hearing intact, tongue midline, no evidence of atrophy or fibrillations. As performed by the nurse. Sternocleidomastoid and trapezius were equally strong. Soft palate raisesequally, no uvular deviations -? Motor: normal bulk, tone, and strength throughout. No pronator drift or satelliting. Upper and lower extremities equal bilaterally. l R L l R L -? Tone: is normal and bulk is normal -? Sensation- Intact to light touch bilaterally -? Coordination: No dysmetria on [id number], finger follow finger or [id number]. -? Gait- Gait initiation was normal. Narrow base with good heel strike and stride length was observed during ambulation. Turns were in stride. Patient was able to walk normally in tandem. Romberg was normal. Lab / Micro Data 01/23/25 04:04 01/23/25 04:04 Labs: Laboratory Results - last 24 hr 01/22/25 17:20: WBC 13.5 H, RBC 4.37, Hgb 13.7, Hct 41.0, MCV 93.8, MCH 31.4, MCHC 33.4, RDW Std Deviation 55.5 H, RDW Coeff of Kadi 16.2 H, Plt Count 386, MPV11.5, Immature Gran % (Auto) 0.300, Neut % (Auto) 39.9 L, Lymph % (Auto) 46.6 H,[place] % (Auto) 12.1 H, Eos % (Auto) 0.8, Baso % (Auto) 0.3, Absolute Neuts (auto)5.4, Absolute Lymphs (auto) 6.29 H, Nucleated RBC % 0, Platelet Estimate ADEQUATE, PT 16.2 H, INR 1.3, APTT 26.8, Sodium 136, Potassium 4.0, Chloride 99,Carbon Dioxide 23.2, Anion Gap 14, BUN 11, Creatinine 0.85, Estim Creat Clear Calc 54.29, Est GFR (MDRD) Non-Af 70, BUN/Creatinine Ratio 13.0, Glucose 102 H, Calcium 9.7, Troponin T High Sens 8 01/22/25 18:10: POC Glucose 97 01/22/25 19:27: Troponin T Hi Sens 2 Hr 7 01/22/25 22:44: Troponin T Hi Sens 4Hr 13 01/23/25 04:04: WBC 10.9, RBC 4.31, Hgb 13.3, Hct 40.2, MCV 93.3, MCH 30.9, MCHC33.1, RDW Std Deviation 54.5 H, RDW Coeff of Kadi 15.9 H, Plt Count 414, MPV 10.2, Immature Gran % (Auto) 0.500, Neut % (Auto) 50.3, Lymph % (Auto) 36.2, [place] % (Auto) 11.5 H, Eos % (Auto) 1.1, Baso % (Auto) 0.4, Absolute Neuts (auto) 5.5, Absolute Lymphs (auto) 3.95, Nucleated RBC % 0, PT 15.8 H, INR 1.2, Sodium 137, Potassium 3.9, Chloride 101, Carbon Dioxide 23.5, Anion Gap 12, BUN 10, Creatinine 0.75, Estim CreatClear Calc 57.34, Est GFR (MDRD) Non-Af 82, BUN/Creatinine Ratio 12.8, Glucose 129 H, Calcium 9.4, Triglycerides 221 H, Cholesterol 165, LDL Cholesterol, Calc 85, VLDL Cholesterol 44 H, HDL Cholestero l 36 L, Cholesterol/HDL Ratio 4.60 Imaging Radiology Impression Brain CT 01/22/25 17:54 IMPRESSION: 1. No acute intracranial finding. 2. Findings of chronic microvascular ischemic changes and age-related changes. Reading Location: [facility] Head/Neck CTA 01/22/25 17:55 IMPRESSION: 1. No large vessel occlusion, AVM or aneurysm. 2. No stenosis of the cervical carotid arteries by NASCET criteria. Reading Location: [facility] Active Medications Active Medications Active Medications: Current Medications Generic Name Dose Route Start Last Admin Trade Name Freq PRN Reason Stop Dose Admin Apixaban 5 mg 01/22/25 22:00 01/23/25 09:25 Apixaban 5 Mg Tablet PO 5 mg BID SIMON Administration Cholecalciferol 50 mcg 01/23/25 10:00 01/23/25 09:25 Cholecalciferol (Vit D3) 25 Mcg Tablet (1,000 Units) PO 50 mcg DAILY SIMON Administration Cyanocobalamin 1,000 mcg 01/23/25 10:00 01/23/25 09:26 Cyanocobalamin 500 Mcg Tablet PO 1,000 mcg DAILY SIMON Administration Fluticasone Propionate 1 spray 01/23/25 10:00 01/23/25 09:26 Fluticasone 0.05% 1 [place] Nasal.Sry NASAL 1 spray DAILY SIMON Administration Gabapentin 400 mg 01/22/25 22:00 01/23/25 05:34 Gabapentin 400 Mg Capsule PO 400 mg TID SIMON Administration Sodium Chloride 100 mls @ 15 mls/hr 01/22/25 23:44 IV .Q6H40M PRN Saline Flush Sodium Chloride 100 mls @ 15 mls/hr 01/22/25 23:44 IV .Q6H40M PRN Additional IVPB Infusion Labetalol HCl 20 mg 01/22/25 17:54 Labetalol 20mg/4ml Syringe IV 01/23/25 17:54 X1 PRN Blood Pressure Labetalol HCl 10 - 20 mg 01/22/25 21:22 Labetalol 20mg/4ml Syringe IV 01/23/25 21:22 Q10M PRN PRN maintain BP parameters with HR >/=60 Magnesium Chloride 64 mg 01/23/25 10:00 01/23/25 09:26 Magnesium Chloride 64 Mg Delay Rel.Tablet PO Not Given DAILY SIMON Meclizine HCl 25 mg 01/22/25 21:22 Meclizine Hcl 25 Mg Tablet PO 4X/DAY PRN PRN DIZZINESS Metformin HCl 500 mg 01/23/25 08:00 01/23/25 08:14 Metformin (Xr) 500 Mg Tablet PO Not Given BIDCM SIMON Multivitamins 1 tablet 01/23/25 08:00 01/23/25 09:25 Multivitamins,Therapeutic Tablet PO 1 tablet DAILYCM SIMON Administration Paroxetine HCl 40 mg 01/23/25 10:00 01/23/25 09:25 Paroxetine 20 Mg Tablet PO 40 mg DAILY SIMON Administration Paroxetine HCl 10 mg 01/22/25 22:00 01/22/25 23:26 Paroxetine 10 Mg Tablet PO 10 mg QHS SIMON Administration Rosuvastatin Calcium 10 mg 01/22/25 22:00 01/22/25 23:29 Rosuvastatin Calcium 5 Mg Tablet PO 10 mg 2200 SIMON Administration Sodium Chloride 10 - 40 ml 01/22/25 23:44 0.9% Saline Lock 10 Ml Syringe IV UD PRN SALINE FLUSH Verapamil HCl 80 mg 01/22/25 22:00 01/23/25 08:14 Verapamil 80 Mg Tablet PO Not Given BID SIMON Protocol NIHSS NIHSS Nursing Documentation NIHSS Nursing Documentation: NIHSS: Ischemic Stroke/TIA Start: 01/22/25 21:22 Text: For PCU Patients: NIH and Neuro Check every 4 Status: Active hours, PRN and with change in RN caregiver. Freq: [id number] Protocol: Activity Type Activity Date Activity User E-sign Co-sign Detail Recorded Client Recorded Date Recorded By Document 01/23/25 09:19 [id number] 01/23/25 09:21 01/23/25 09:19 NIH Stroke Scale [NIHSS] A score of 0 is normal or asymptomatic . Total possible score is 42. Inpatient: RN or Physician to activate a stroke alert for onset of new stroke symptoms or with NIHSS increase >/= 3 points. Following change in neurological status, NIHSS will be performed per physician order or more frequently PRN. -1a. Level of Consciousness 0 - Alert; keenly responsive -1b. LOC Questions 0 - Answers BOTH questions correctly -1c. LOC Commands 0 - Performs BOTH tasks correctly -2. Best Gaze 0 - Normal -3. Visual 0 - No visual loss -4. Facial Palsy 0 - Normal symmetrical movements -5a. Left Arm 0 - No drift; arm holds 90 ( or 45) degrees for full 10 seconds -5b. Right Arm 0 - No drift; arm holds 90 ( or 45) degrees for full 10 seconds -6a. Left Leg 0 - No drift; leg holds 30- degree position for full 5 seconds -6b. Right Leg 0 - No drift; leg holds 30- degree position for full 5 seconds -7. Limb Ataxia 0 - Absent -8. Sensory 0 - Normal; no sensory loss -9. Best Language 0 - No aphasia; normal -10. Dysarthria 0 - Normal -11. Extinction and Inattention 0 - No abnormality -Total 0 Query Text:A score of 0 is normal or asymptomatic. Total possible score is 42 . ED: Notify Physician for NIHSS increase by > / = 3 points. Inpatient: RN or Physician to activate a stroke alert for NIHSS increase of > / = 3 points. Coma Scale [Assess] -Eye Opening Spontaneous -Motor Obeys Commands -Verbal Oriented [Total] -Coma Scale Total 15 01/23/25 1123 Cosigner Signature (if applicable): CC: Dr. Yenifer Gonsalez MD~ Signed [facility]04-29-2025 Progress note [facility] Medical Records Department [address] [place] [address] Progress Note - Hospitalist 01/23/25 0737 MR#: [id number] Acct: [id number] Name: ELIZABETH RODRIGEZ Rep #:[id number] : 1945 79 From: Adebayo De La Cruz MD PCP: Dr. Yenifer Gonsalez MD Status:AD M JAS[place] Location: [place] [address] Reason for Visit Reason for Visit: Diagnoses Vertigo of central origin (01/22/25) Essential (primary) hypertension (01/22/25) Body mass index [BMI] 34.0-34.9, adult (01/22/25) detention (current) use of anticoagulants (01/22/25) Subjective Subjective Patient is a 79-year-old lady with past medical history significant for paroxysmal atrial fibrillation hypertension who presented with acute onset of vertigo admitted to monitored bed for further evaluation Objective Data Objective Data Vital Signs: Vital Signs Temp Pulse Resp BP Pulse Ox O2 Del Method O2 Flow Rate 98 F 86 16 131/71 H 96 Nasal Cannula 2 01/23/25 05:20 01/23/25 05:20 01/23/25 05:20 01/23/25 05:20 01/23/25 05:20 01/23/25 05:20 01/23/25 05:20 Oxygen Flow Rate (L/min) 2 Oxygen Delivery Method Nasal Cannula Weight: 82.5 kg Body Mass Index (BMI) 34.3 Lab / Micro Data 01/23/25 04:04 01/23/25 04:04 Labs: Laboratory Results - last 24 hr 01/22/25 17:20: WBC 13.5 H, RBC 4.37, Hgb 13.7, Hct 41.0, MCV 93.8, MCH 31.4, MCHC 33.4, RDW Std Deviation 55.5 H, RDW Coeff of Kadi 16.2 H, Plt Count 386, MPV 11.5, Immature Gran % (Auto) 0.300, Neut% (Auto) 39.9 L, Lymph % (Auto) 46.6 H, [place] % (Auto) 12.1 H, Eos % (Auto) 0.8, Baso % (Auto) 0.3, Absolute Neuts (auto) 5.4, Absolute Lymphs (auto) 6.29 H, Nucleated RBC % 0, Platelet Estimate ADEQUATE, PT 16.2 H, INR 1.3, APTT 26.8, Sodium 136, Potassium 4.0, Chloride 99, Carbon Dioxide 23.2, Anion Gap 14, BUN 11, Creatinine 0.85, Estim Creat Clear Calc 54.29, Est GFR (MDRD) Non-Af 70, BUN/Creatinine Ratio 13.0, Glucose 102 H, Calcium 9.7, Troponin T High Sens 8 01/22/25 18:10: POC Glucose 97 01/22/25 19:27: Troponin T Hi Sens 2 Hr 7 01/22/25 22:44: Troponin T Hi Sens 4Hr 13 01/23/25 04:04: WBC 10.9, RBC 4.31, Hgb 13.3, Hct 40.2, MCV 93.3, MCH 30.9, MCHC 33.1, RDW Std Deviation 54.5 H, RDW Coeff of Kadi 15.9 H, Plt Count 414, MPV 10.2, Immature Gran % (Auto) 0.500, Neut %(Auto) 50.3, Lymph % (Auto) 36.2, [place] % (Auto) 11.5 H, Eos % (Auto) 1.1, Baso % (Auto) 0.4, Absolute Neuts (auto) 5.5, Absolute Lymphs (auto) 3.95, Nucleated RBC % 0, PT 15.8 H, INR 1.2, Sodium 137,Potassium 3.9, Chloride 101, Carbon Dioxide 23.5, Anion Gap 12, BUN 10, Creatinine 0.75, Estim Creat Clear Calc 57.34, Est GFR (MDRD) Non-Af 82, BUN/Creatinine Ratio 12.8, Glucose 129 H, Calcium 9.4,Triglycerides 221 H, Cholesterol 165, LDL Cholesterol, Calc 85, VLDL Cholesterol 44 H, HDL Cholester ol 36 L, Cholesterol/HDL Ratio 4.60 Radiography Diagnostic Testing: Radiology Impression Brain CT 01/22/25 17:54 IMPRESSION: 1. No acute intracranial finding. 2. Findings of chronic microvascular ischemic changes and age-related changes. Reading Location: [facility] Head/Neck CTA 01/22/25 17:55 IMPRESSION: 1. No large vessel occlusion, AVM or aneurysm. 2. No stenosis of the cervical carotid arteries by NASCET criteria. Reading Location: [facility] Physical Exam Narrative GENERAL: cooperative HEENT: Atraumatic; normocephalic EYES; Anicteric, Normal Conjunctiva NECK; supple, normal thyroid, RESPIRATORY: Diminished to auscultation CARDIOVASCULAR: Regular S1 S2, GI: soft, normoactive bowel sounds, : No Renal angle tenderness; EXTREMITIES: No edema, no clubbing, MUSCULOSKELETAL: no muscle wasting NEURO: Awake; no lateralizing signs. SKIN: No Rash PSYCH; Flat affect Assessment & Plan Assessment/Plan (1) Adult BMI 34.0-34.9 kg/sq m: (2) Elevated blood pressure reading with diagnosis of hypertension: (3) Anticoagulant long-term use: (4) Vertigo of central origin: PLAN: Plan Patient is a 79-year-old lady with past medical history significant for paroxysmal atrial fibrillation hypertension who presented with acute onset of vertigo admitted to monitored bed for further evaluation 1. Acute vertigo ? Patient admitted to monitored bed. Placed on Q4 neurochecks ordered MRI and 2D echo and consultation placed to teleneuro 2. Paroxysmal atrial fibrillation ? Patient was on verapamil for rate control as well as apixaban for systemic anticoagulation 3. Hypertension ? Blood pressure controlled, home medications continued with dose adjustment as needed 4. Dyslipidemia ?Patient is on statin therapy, continued at home dose 5. Diabetes mellitus type 2 ? On metformin held on admission placed on Accu-Cheks AC and at bedtime with sliding scale coverage 6. Depression ? Patient is on Paxil, continue 7. Class I obesity with BMI of 34.4 ? Complicating care weight loss advised 8. Peripheral neuropathy ? Patient is on gabapentin did continue 9. DVT prophylaxis ? On apixaban Charges/Coding Visit Charges Inpatient E&M: 58870 Subs Hosp L2 NIHSS NIHSS Nursing Documentation NIHSS Nursing Documentation: NIHSS: Ischemic Stroke/TIA Start: 01/22/25 21:22 Text: For PCU Patients: NIH and Neuro Check every 4 Status: Active hours, PRN and with change in RN caregiver. Freq: [id number] Protocol: Activity Type Activity Date Activity User E-sign Co-sign Detail Recorded Client Recorded Date Recorded By Document 01/23/25 05:20 CARLIE [id number] 01/23/25 05:30 CARLIE 01/23/25 05:20 NIH Stroke Scale [NIHSS] A score of 0 is normal or asymptomatic . Total possible score is 42. Inpatient: RN or Physician to activate a stroke alert for onset of new stroke symptoms or with NIHSS increase >/= 3 points. Following change in neurological status, NIHSS will be performed per physician order or more frequently PRN. -1a. Level of Consciousness 0 - Alert; keenly responsive -1b. LOC Questions 0 - Answers BOTH questions correctly -1c. LOC Commands 0 - Performs BOTH tasks correctly -2. Best Gaze 0 - Normal -3. Visual 0 - No visual loss -4. Facial Palsy 0 - Normal symmetrical movements -5a. Left Arm 0 - No drift; arm holds 90 ( or 45) degrees for full 10 seconds -5b. Right Arm 0 - No drift; arm holds 90 ( or 45) degrees for full 10 seconds -6a. Left Leg 0 - No drift; leg holds 30- degree position for full 5 seconds -6b. Right Leg 0 - No drift; leg holds 30- degree position for full 5 seconds -7. Limb Ataxia 0 - Absent -8. Sensory 0 - Normal; no sensory loss -9. Best Language 0 - No aphasia; normal -10. Dysarthria 0 - Normal -11. Extinction and Inattention 0 - No abnormality -Total 0 Query Text:A score of 0 is normal or asymptomatic. Total possible score is 42 . ED: Notify Physician for NIHSS increase by > / = 3 points. Inpatient: RN or Physician to activate a stroke alert for NIHSS increase of > / = 3 points. Coma Scale [Assess] -Eye Opening Spontaneous -Motor Obeys Commands -Verbal Oriented [Total] -Coma Scale Total 15 01/23/25 1023 Cosigner Signature (if applicable): CC: ~ Signed [facility]04-28-2025 Evaluation note* Diagnosis Onset Date Resolution Status Admit Date Adult BMI 34.0-34.9 kg/sq m acute January 22, 2025 8:56pm Anticoagulant long-term use acute January 22, 2025 8:56pm Elevated blood pressure read ing with diagnosis of hypertension acute A pril 2024 8:56pm Hyperlipidemia acute December 8:56pm Vertigo of central origin acute January 22, 2025 8:56pm [facility] Work Phone: 1(642) 901-703904-28-2025 Evaluation note* Diagnosis Onset Date Resolution Status Admit Date Adult BMI 34.0-34.9 kg/sq m acute January 22, 2025 8:56pm Anticoagulant long-term use acute January 22, 2025 8:56pm Elevated blood pressure read ing with diagnosis of hypertension acute A pril 2024 8:56pm Hyperlipidemia acute December 8:56pm Vertigo of central origin acute January 22, 2025 8:56pm Dilated aortic root acute January 262024 2:58pm Essential hypertension acute 2024 2:58pm Hyperlipidemia acute February 16, 2025 2:58pm Paroxysmal atrial fibrillation acute February 16, 2025 2:58pm Syncope acute February 16, 2025 2:58pm [facility] Work Phone: 1(235) 366-856804-28-2025 History and physical note Author Pablo Fernandes [facility] Note Date/Time January 22, 2025 8:5 5pm [facility] Medical Records Department [address] [place] [address] History & Physical Exam 01/22/252045 MR#: [id number] Acct: [id number] Name: ELIZABETH RODRIGEZ Rep #:[id number] : 1945 79 From: Pablo Fernandes MD PCP: Dr. 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 Patient states she has never had severe vertigo like this happen to her before. She complained of double vision at the time. Patient was sent to the emergency room and a stroke team was called. [facility] to currently being on Eliquis. She does have a significant history of essential hypertension, abdominal aortic aneurysm, paroxysmal atrial fibrillation for which she takes Eliquis, prior stroke, vertigo previously with cerebrovascular accident and right homonymous superior quadrantanopia. Patient currently has a slight headache with and has no trouble speaking or swallowing during my evaluation. She denies paresthesia or weakness of her upper extremities or lower extremities. She does have a history of walking difficultybut states her current ability is worse than usual. Her vertigo resolved after an hour of symptoms. In she is completely resolved at this time. She will be admitted for observation and MRI ordered according to telestroke consultation. 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 Arthritis Obesity Hyperlipidemia Vulvar dermatitis Lichen sclerosus Diabetes Sarcoidosis Spleen anomaly Splenomegaly History of blood clots Sleep apnea Hemorrhoids BMI 36.0-36.9,adult History of PSVT (paroxysmal supraventricular tachycardia) Home Medications ?Medication ?Instructions ?Recorded ?Last Taken ?Type paroxetine HCl 20 mg tablet (Paxil) 40 mg PO DAILY DEP RESSION 04/03/16 01/22/25 History verapamil 80 mg tablet 80 mg PO BID HEART 04/03/16 01/22/25 History gabapentin 400 mg capsule 400 mg PO TID nerve pain 11/1701/22/25 History fluticasone propionate 50 1 spray intranasal DAILY 01/21/25 History mcg/actuation nasal spray,suspension (Flonase Allergy Relief) apixaban 5 mg tablet (Eliquis) 5 mg PO BID 30 days #60 tabs 12/19/22 01/22/25 Rx biotin 1 mg capsule 1 mg PO DAILY 01/22/2501/22 History cholecalciferol (vitamin D3) 50 50 mcg PO DAILY 01/22/25 History mcg (2,000 unit) tablet (Thera-D) magnesium 250 mg tablet 250 mg PO DAILY 01/22/25 History meclizine 25 mg tablet 25 mg PO 4X/DAY PRN Dizzines s 01/22/25 Unknown History mecobalamin (vitamin B12) 1,000 1,000 mcg PO DAILY 01/22/25 History mcg lozenges metformin 500 mg tablet,extended 500 mg PO BID 5 01/22/25 History release 24 hr multivitamin (Multiple Vitamins 1 tab PO DAILY 5 01/22/25 History tablet) paroxetine HCl 20 mg tablet 10 mg PO QHS 01/22/2512/27 History rosuvastatin 10 mg tablet 10 mg PO DAILY 01/22/2512/27 History Allergy/AdvReac Type Severity Reaction Status Date / Time lidocaine Allergy Intermediate tachycardia Verified 06/23/23 10:34 Penicillins Allergy Hives Verified 06/23/23 10:34 atorvastatin AdvReac Pain in Verified 06/23/23 10:34 joints hydrocodone bitartrate (From AdvReac Vomiting Verified 06/23/23 10:34 Vicodin) oxycodone HCl (From Percocet) AdvReac Vomiting Verified 06/23/23 10:34 Family History Daughter Hypertension Father Heart disease Mother Dementia Surgical History History of breast biopsy H/O splenectomy History of hysterectomy Social History Smoking Status: Never smoker alcohol intake: current details: social substance use type: does not use caffeine: Yes what type of physical activity do you participate in: walking seatbelt use: always do you feel safe at home: Yes 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 Constitutional: Denies chills or fever(s) Eyes Eyes: Reports double vision ENT HEENT: Denies abnormal hearing Cardiovascular Cardiovascular: Denies chest pain Respiratory/Chest Respiratory/Chest: Denies cough Gastrointestinal Gastrointestinal: Denies abdominal pain Genitourinary Genitourinary: Denies dysuria Musculoskeletal Musculoskeletal: Denies back pain Integumentary Integumentary: Denies dry skin Neurologic Neurologic: Reports abnormal gait and sensory deficit Psychiatric Psychiatric: Denies anxiety Vital Signs Vital Signs Vital Signs: 01/22/25 17:45 01/22/25 17:48 01/22/25 17:54 Temperature 98.0 F Temperature Source Oral Pulse Rate 90 Respiratory Rate 14 Respiratory Effort Normal Respiratory Pattern Normal Blood Pressure 160/81 H Blood Pressure Mean 107 Pulse Ox 95 Oxygen Delivery Method Room Air Room Air 01/22/25 18:09 01/22/25 18:24 01/22/25 19:00 Temperature 98.1 F Temperature Source Oral Pulse Rate 93 85 83 Respiratory Rate 20 H 16 14 Respiratory Effort Respiratory Pattern Blood Pressure 156/93 H 143/86 H 144/81 H Blood Pressure Mean 114 105 102 Pulse Ox 95 93 94 Oxygen Delivery Method Room Air Room Air Room Air 01/22/25 19:30 01/22/25 20:00 01/22/25 20:13 Temperature 98.4 F 98.4 F Temperature Source Oral Pulse Rate 85 92 90 Respiratory Rate 20 H 17 18 Respiratory Effort Respiratory Pattern Blood Pressure 139/77 H 162/87 H 162/87 H Blood Pressure Mean 97 112 112 Pulse Ox 93 92 95 Oxygen Delivery Method Room Air Room Air Weight Weight: 183 lb 14.4 oz Body Mass Index (BMI) 34.7 Physical Exam Const alert, oriented x3 and no apparent distress General Appearance: cooperative and well developed HEENT normocephalic and head/scalp atraumatic Eyes PERRL and EOMs intact bilaterally Neck no lymphadenopathy General: trachea midline Lymph Lymphatic: no lymphadenopathy noted Resp normal respiratory effort, normal air movement and clear to auscultation bilaterally Cardio regular rate, regular rhythm, S1 normal heart sound and S2 normal heart sound GI normal to inspection, nondistended, normoactive bowel sounds Extremity normal capillary refill Skin General Skin Exam: no breakdown Neuro CN's II-XII intact bilaterally, no focal motor deficits and no sensory deficits noted Coordination / Balance: [id number] test normal Speech: speech normal Motor Exam: strength 5/5 throughout Psych thought process normal, cooperative and affect normal Appearance: appropriate Results Lab / Micro Data 01/22/25 17:20 01/22/25 17:20 Labs: Laboratory Results - last 24 hr 01/22/25 17:20: WBC 13.5 H, RBC 4.37, Hgb 13.7, Hct 41.0, MCV 93.8, MCH 31.4, MCHC 33.4, RDW Std Deviation 55.5 H, RDW Coeff of Kadi 16.2 H, Plt Count 386, MPV11.5, Immature Gran % (Auto) 0.300, Neut % (Auto) 39.9 L, Lymph % (Auto) 46.6 H,[place] % (Auto) 12.1 H, Eos % (Auto) 0.8, Baso % (Auto) 0.3, Absolute Neuts (auto)5.4, Absolute Lymphs (auto) 6.29 H, Nucleated RBC % 0, Platelet Estimate ADEQUATE, PT 16.2 H, INR 1.3, APTT 26.8, Sodium 136, Potassium 4.0, Chloride 99,Carbon Dioxide 23.2, Anion Gap 14, BUN 11, Creatinine 0.85, Estim Creat Clear Calc 54.29, Est GFR (MDRD) Non-Af 70, BUN/Creatinine Ratio 13.0, Glucose 102 H, Calcium 9.7, Troponin T High Sens 8 01/22/25 18:10: POC Glucose 97 Imaging Radiology Impression Brain CT 01/22/25 17:54 IMPRESSION: 1. No acute intracranial finding. 2. Findings of chronic microvascular ischemic changes and age-related changes. Reading Location: [facility] Head/Neck CTA 01/22/25 17:55 IMPRESSION: 1. No large vessel occlusion, AVM or aneurysm. 2. No stenosis of the cervical carotid arteries by NASCET criteria. Reading Location: [facility] Assessment & Plan Assessment/Plan (1) Adult BMI 34.0-34.9 kg/sq m: (2) Elevated blood pressure reading with diagnosis of hypertension: (3) Anticoagulant long-term use: (4) Vertigo of central origin: PLAN: Plan 1 acute onset of vertigo suspect transient ischemic attack?admit patient for observation to progressive care unit, neurologic checks per routine, MRI in the a.m., CBC BMP, fasting lipid panel and echocardiogram to be done in the morning,patient is already on anticoagulation therapy 2. History of atrial fibrillation patient is on Eliquis and will continue to beso 3. Hypertension?continue antihypertensive medication 4. DVT prophylaxis?continue Eliquis patient is already on Charges/Coding Visit Charges OBSV E&M: 47646 Observ/hosp same date L2 01/22/252054 <Electronically signed by Pablo Fernandes MD> Cosigner Signature (if applicable): CC: Dr. Yenifer Gonsalez MD; Dr. Pablo Fernandes MD~ Signed [facility] Work Phone: 1(234) 503-103104-28-2025 Discharge summary Author Alejandro Chaudhari [facility] Note Date/Time January 22, 2025 8:2 9pm [facility] Medical Records Department [address] [place] [address] Emergency Department Summary 01/22/25 MR#: [id number] Acct: [id number] Name: ELIZABETH RODRIGEZ Rep #:[id number] : 1945 79 From: Alejandro Chaudhari MD PCP: Dr. Yenifer Gonsalez MD Status:AD M [facility] Location: [place] [address] HPI History of Present Illness Chief Complaint: Syncope Detail of Chief Complaint: Vertigo and diplopia Informant: patient and spouse/S.O. 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 She has history of essential hypertension, abdominal aortic aneurysm, paroxysmal atrial fibrillation on Eliquis, prior stroke, vertigo due to cerebrovascular disease, right homonymous superior quadrantanopia. She was at the [employer] rental [employer] when she developed abrupt onset of vertigo. She states she is never had vertigo like this before. She also has double vision. In light of this nurse was asked to have someone paged a stroke team. She is not a candidate for TNKase since she is on Eliquis. Patient has slight headache. She has trouble speech or swallowing. Denies paresthesia, anesthesia Medicus. Denies weakness in her upper or lower extremities. She does have difficulty walking. She has a history of difficultywalking as well. Her ability to ambulate is worse now. 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 Arthritis Obesity Hyperlipidemia Vulvar dermatitis Lichen sclerosus Diabetes Sarcoidosis Spleen anomaly Splenomegaly History of blood clots Sleep apnea Hemorrhoids BMI 36.0-36.9,adult History of PSVT (paroxysmal supraventricular tachycardia) Home Medications ?Medication ?Instructions ?Recorded ?Last Taken ?Type paroxetine HCl 20 mg tablet (Paxil) 40 mg PO DAILY DEP RESSION 04/03/16 01/22/25 History verapamil 80 mg tablet 80 mg PO BID HEART 04/03/16 01/22/25 History gabapentin 400 mg capsule 400 mg PO TID nerve pain 11/1701/22/25 History fluticasone propionate 50 1 spray intranasal DAILY 01/21/25 History mcg/actuation nasal spray,suspension (Flonase Allergy Relief) apixaban 5 mg tablet (Eliquis) 5 mg PO BID 30 days #60 tabs 12/19/22 01/22/25 Rx biotin 1 mg capsule 1 mg PO DAILY 01/22/2501/22 History cholecalciferol (vitamin D3) 50 50 mcg PO DAILY 01/22/25 History mcg (2,000 unit) tablet (Thera-D) magnesium 250 mg tablet 250 mg PO DAILY 01/22/25 History meclizine 25 mg tablet 25 mg PO 4X/DAY PRN Dizzines s 01/22/25 Unknown History mecobalamin (vitamin B12) 1,000 1,000 mcg PO DAILY 01/22/25 History mcg lozenges metformin 500 mg tablet,extended 500 mg PO BID 5 01/22/25 History release 24 hr multivitamin (Multiple Vitamins 1 tab PO DAILY 5 01/22/25 History tablet) paroxetine HCl 20 mg tablet 10 mg PO QHS 01/22/2512/27 History rosuvastatin 10 mg tablet 10 mg PO DAILY 01/22/2512/27 History Allergy/AdvReac Type Severity Reaction Status Date / Time lidocaine Allergy Intermediate tachycardia Verified 06/23/23 10:34 Penicillins Allergy Hives Verified 06/23/23 10:34 atorvastatin AdvReac Pain in Verified 06/23/23 10:34 joints hydrocodone bitartrate (From AdvReac Vomiting Verified 06/23/23 10:34 Vicodin) oxycodone HCl (From Percocet) AdvReac Vomiting Verified 06/23/23 10:34 Family History Daughter Hypertension Father Heart disease Mother Dementia Surgical History History of breast biopsy H/O splenectomy History of hysterectomy Social History Smoking Status: Never smoker alcohol intake: current details: social substance use type: does not use caffeine: Yes what type of physical activity do you participate in: walking seatbelt use: always do you feel safe at home: Yes 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 ED Constitutional Constitutional ED: Denies chills, fever(s), subjective or sweats Eyes Eyes: Reports diplopia; Denies blurry vision or change in vision ENT ENT ED: Denies ear pain, rhinorrhea or sore throat Cardiovascular Cardiovascular: Denies chest pain, orthopnea, palpitations or paroxysmal nocturnal dyspnea Respiratory/Chest Respiratory/Chest: Denies cough, dyspnea, dyspnea on exertion, orthopnea or paroxysmal nocturnal dyspnea Gastrointestinal Gastrointestinal: Denies abdominal pain, nausea or vomiting Genitourinary Genitourinary ED: Denies dysuria, hematuria or urinary frequency Musculoskeletal Musculoskeletal: Denies arthralgias or myalgias Integumentary Denies rash Neurologic Neurologic: Reports headache(s); Denies paresthesias or weakness Endocrine Endocrinology: Denies cold intolerance or heat intolerance Hematologic/Lymphatic Hematologic/Lymphatic: Reports systems reviewed and no addt'l complaints, exceptas documented EXAM Physical Exam Const Vital Signs: 01/22/25 17:45 01/22/25 17:48 01/22/25 17:54 Temperature 98.0 F Temperature Source Oral Pulse Rate 90 Respiratory Rate 14 Respiratory Effort Normal Respiratory Pattern Normal Blood Pressure 160/81 H Blood Pressure Mean 107 Pulse Ox 95 Oxygen Delivery Method Room Air Room Air 01/22/25 18:09 01/22/25 18:24 01/22/25 19:00 Temperature 98.1 F Temperature Source Oral Pulse Rate 93 85 83 Respiratory Rate 20 H 16 14 Respiratory Effort Respiratory Pattern Blood Pressure 156/93 H 143/86 H 144/81 H Blood Pressure Mean 114 105 102 Pulse Ox 95 93 94 Oxygen Delivery Method Room Air Room Air Room Air 01/22/25 19:30 01/22/25 20:00 01/22/25 20:13 Temperature 98.4 F 98.4 F Temperature Source Oral Pulse Rate 85 92 90 Respiratory Rate 20 H 17 18 Respiratory Effort Respiratory Pattern Blood Pressure 139/77 H 162/87 H 162/87 H Blood Pressure Mean 97 112 112 Pulse Ox 93 92 95 Oxygen Delivery Method Room Air Room Air Positive well nourished and well developed Constitutional Narrative: BMI is 34.7. Blood pressure slightly evaded 160/81. Patient looks slightly pale. General Appearance ED: well developed and pallor HEENT Reports moist mucous membranes HEENT Narrative: Head is atraumatic normocephalic. Ears normal. Nares patent. Negative for trauma or tenderness Eyes PERRL Eyes Narrative: There is no nystagmus or central gaze. However, she reports diplopia. She states when it started she had triple vision . General Eye ED: Negative for pale conjunctiva or scleral icterus Neck no lymphadenopathy, supple and no JVD Resp normal respiratory effort and clear to auscultation bilaterally Cardio regular rate, regular rhythm, S1 normal heart sound, S2 normal heart sound and no murmurs GI normal to inspection, nondistended, normoactive bowel sounds, non-tender, non-distended and no masses; Negative for hepatosplenomegaly Back/Spine no CVA tenderness Extremity normal to inspection General Extremety ED: Negative for edema or tenderness General Extremity: Negative for edema Neuro oriented x3, CN's II-XII intact bilaterally and no sensory deficits noted Neuro Narrative: There is no dysmetria. He will ramsey was performed adequately. 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 With patient of diplopia and visual field cut this is central and consistent with stroke. Patient is not a candidate for TNK because she is on Eliquis for paroxysmal atrial fibrillation. Will open another EMR to document NIH since this document does not have a NIH score score or all the other appropriate documentations necessary. Lab Data Labs: Laboratory Results - last 24 hr 01/22/25 01/22/25 17:20 18:10 WBC 13.5 H RBC 4.37 Hgb 13.7 Hct 41.0 MCV 93.8 MCH 31.4 MCHC 33.4 RDW Std Deviation 55.5 H RDW Coeff of Kadi 16.2 H Plt Count 386 MPV 11.5 Immature Gran % (Auto) 0.300 Neut % (Auto) 39.9 L Lymph % (Auto) 46.6 H [place] % (Auto) 12.1 H Eos % (Auto) 0.8 Baso % (Auto) 0.3 Absolute Neuts (auto) 5.4 Absolute Lymphs (auto) 6.29 H Nucleated RBC % 0 PT 16.2 H INR 1.3 APTT 26.8 Sodium 136 Potassium 4.0 Chloride 99 Carbon Dioxide 23.2 Anion Gap 14 BUN 11 Creatinine 0.85 Estim Creat Clear Calc 54.29 Est GFR (MDRD) Non-Af 70 BUN/Creatinine Ratio 13.0 Glucose 102 H Calcium 9.7 Troponin T High Sens 8 POC Glucose 97 Radiography Diagnostic Testing: Clinical Impression(s) from Imaging Studies Brain CT 01/22/25 17:54 IMPRESSION: 1. No acute intracranial finding. 2. Findings of chronic microvascular ischemic changes and age-related changes. Reading Location: [facility] Head/Neck CTA 01/22/25 17:55 IMPRESSION: 1. No large vessel occlusion, AVM or aneurysm. 2. No stenosis of the cervical carotid arteries by NASCET criteria. Reading Location: [facility] C-minus of the head per my review reveals no evidence of bleed. There is no sinus pathology. There is no asymmetry noted. Awaiting formal read by radiologist. As previously noted patient is not a candidate for TNKase since she is on Eliquis. Discharge Plan Dx/Rx/DC Orders Clinical Impression: Vertigo of central origin, Diplopia, Left homonymous superior quadrantanopia, Anticoagulant long-term use, Hyperlipidemia, Elevated blood pressure reading with diagnosis of hypertension, Adult BMI 34.0-34.9 kg/sq m Disposition Disposition: Acute Care Hospital [facility] What to do if you have Problems For any increased pain, shortness of breath, bleeding, nausea or vomiting, chestpain, or any unexpected problems, contact your Primary Care Provider. Call [facility] ([phone]) or report to the closest Emergency Room. Call 911 if necessary. 01/22/252028 <Electronically signed by Alejandro Chaudhari MD> Cosigner Signature (if applicable): CC: Dr. Yenifer Gonsalez MD ~ Signed [facility] Work Phone: 1(627) 834-495804-28-2025 Discharge summary Author Alejandro Chaudhari [facility] Note Date/Time January 22, 2025 8:2 8pm [facility] Medical Records Department [address] [place] [address] Emergency Department Summary 01/22/25 MR#: [id number] Acct: [id number] Name: ELIZABETH RODRIGEZ Rep #:[id number] : 1945 79 From: Alejandro Chaudhari MD PCP: Dr. 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 Arthritis Obesity Hyperlipidemia Vulvar dermatitis Lichen sclerosus Diabetes Sarcoidosis Spleen anomaly Splenomegaly History of blood clots Sleep apnea Hemorrhoids BMI 36.0-36.9,adult History of PSVT (paroxysmal supraventricular tachycardia) Home Medications ?Medication ?Instructions ?Recorded ?Last Taken ?Type paroxetine HCl 20 mg tablet (Paxil) 40 mg PO DAILY DEP RESSION 04/03/16 01/22/25 History verapamil 80 mg tablet 80 mg PO BID HEART 04/03/16 01/22/25 History gabapentin 400 mg capsule 400 mg PO TID nerve pain 11/1701/22/25 History fluticasone propionate 50 1 spray intranasal DAILY 01/21/25 History mcg/actuation nasal spray,suspension (Flonase Allergy Relief) apixaban 5 mg tablet (Eliquis) 5 mg PO BID 30 days #60 tabs 12/19/22 01/22/25 Rx biotin 1 mg capsule 1 mg PO DAILY 01/22/2501/22 History cholecalciferol (vitamin D3) 50 50 mcg PO DAILY 01/22/25 History mcg (2,000 unit) tablet (Thera-D) magnesium 250 mg tablet 250 mg PO DAILY 01/22/25 History meclizine 25 mg tablet 25 mg PO 4X/DAY PRN Dizzines s 01/22/25 Unknown History mecobalamin (vitamin B12) 1,000 1,000 mcg PO DAILY 01/22/25 History mcg lozenges metformin 500 mg tablet,extended 500 mg PO BID 5 01/22/25 History release 24 hr multivitamin (Multiple Vitamins 1 tab PO DAILY 5 01/22/25 History tablet) paroxetine HCl 20 mg tablet 10 mg PO QHS 01/22/2512/27 History rosuvastatin 10 mg tablet 10 mg PO DAILY 01/22/2512/27 History Allergy/AdvReac Type Severity Reaction Status Date / Time lidocaine Allergy Intermediate tachycardia Verified 06/23/23 10:34 Penicillins Allergy Hives Verified 06/23/23 10:34 atorvastatin AdvReac Pain in Verified 06/23/23 10:34 joints hydrocodone bitartrate (From AdvReac Vomiting Verified 06/23/23 10:34 Vicodin) oxycodone HCl (From Percocet) AdvReac Vomiting Verified 06/23/23 10:34 Family History Daughter Hypertension Father Heart disease Mother Dementia Surgical History History of breast biopsy H/O splenectomy History of hysterectomy Social History Smoking Status: Never smoker alcohol intake: current details: social substance use type: does not use caffeine: Yes what type of physical activity do you participate in: walking seatbelt use: always do you feel safe at home: Yes 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 Physical Exam Const Vital Signs: 01/22/25 17:45 01/22/25 17:48 01/22/25 17:54 Temperature 98.0 F Temperature Source Oral Pulse Rate 90 Respiratory Rate 14 Respiratory Effort Normal Respiratory Pattern Normal Blood Pressure 160/81 H Blood Pressure Mean 107 Pulse Ox 95 Oxygen Delivery Method Room Air Room Air 01/22/25 18:09 01/22/25 18:24 01/22/25 19:00 Temperature 98.1 F Temperature Source Oral Pulse Rate 93 85 83 Respiratory Rate 20 H 16 14 Respiratory Effort Respiratory Pattern Blood Pressure 156/93 H 143/86 H 144/81 H Blood Pressure Mean 114 105 102 Pulse Ox 95 93 94 Oxygen Delivery Method Room Air Room Air Room Air 01/22/25 19:30 01/22/25 20:00 01/22/25 20:13 Temperature 98.4 F 98.4 F Temperature Source Oral Pulse Rate 85 92 90 Respiratory Rate 20 H 17 18 Respiratory Effort Respiratory Pattern Blood Pressure 139/77 H 162/87 H 162/87 H Blood Pressure Mean 97 112 112 Pulse Ox 93 92 95 Oxygen Delivery Method Room Air Room Air MDM MDM Lab Data Attestation: I reviewed the patient's lab results. Lab results narrative: White count is elevated 13.5 thousand there is a predominant lymphocytes. Electrolyte panel is unremarkable. Troponin is normal. Labs: Laboratory Results - last 24 hr 01/22/25 01/22/25 17:20 18:10 WBC 13.5 H RBC 4.37 Hgb 13.7 Hct 41.0 MCV 93.8 MCH 31.4 MCHC 33.4 RDW Std Deviation 55.5 H RDW Coeff of Kadi 16.2 H Plt Count 386 MPV 11.5 Immature Gran % (Auto) 0.300 Neut % (Auto) 39.9 L Lymph % (Auto) 46.6 H [place] % (Auto) 12.1 H Eos % (Auto) 0.8 Baso % (Auto) 0.3 Absolute Neuts (auto) 5.4 Absolute Lymphs (auto) 6.29 H Nucleated RBC % 0 PT 16.2 H INR 1.3 APTT 26.8 Sodium 136 Potassium 4.0 Chloride 99 Carbon Dioxide 23.2 Anion Gap 14 BUN 11 Creatinine 0.85 Estim Creat Clear Calc 54.29 Est GFR (MDRD) Non-Af 70 BUN/Creatinine Ratio 13.0 Glucose 102 H Calcium 9.7 Troponin T High Sens 8 POC Glucose 97 Radiography Diagnostic Testing: Clinical Impression(s) from Imaging Studies Brain CT 01/22/25 17:54 IMPRESSION: 1. No acute intracranial finding. 2. Findings of chronic microvascular ischemic changes and age-related changes. Reading Location: [facility] Head/Neck CTA 01/22/25 17:55 IMPRESSION: 1. No large vessel occlusion, AVM or aneurysm. 2. No stenosis of the cervical carotid arteries by NASCET criteria. Reading Location: [facility] CT minus head was independent reviewed interpreted by me. There is evidence of small vessel disease. CTA was done by radiology as no large vessel occlusion, AVM or aneurysm. There is no stenosis of the cervical carotid arteries by NASCET criteria. EKG Initial EKG: Attestation: I personally reviewed and interpreted this EKG as follows: Interpretation: Sinus Rhythm (Rate is 87. W[place] interval is 174 ms. Cures duration 72 ms. QT duration 296 ms. Bentley is normal. Computer is reading inferior infarct of undetermined age. I am in disagreement. 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 Waters plan is PCU observation with stroke workup especially since she has multiple risk factors. The hospitalist was paged. The hospitalist receiving isDr. Fernandes. Discharge Plan Dx/Rx/DC Orders Clinical Impression: Vertigo of central origin, Diplopia, Left homonymous superior quadrantanopia, Anticoagulant long-term use, Hyperlipidemia, Elevated blood pressure reading with diagnosis of hypertension, Adult BMI 34.0-34.9 kg/sq m Disposition Disposition: Acute Care Hospital [facility] NIHSS NIHSS 1a. Level of Consciousness: 0 - Alert; keenly responsive 1b. LOC Questions: 0 - Answers BOTH questions correctly 1c. LOC Commands: 0 - Performs BOTH tasks correctly 2. Best Gaze: 0 - Normal 3. Visual: 1 - Partial hemianopia 4. Facial Palsy: 0 - Normal symmetrical movements 5a. Left Arm: 0 - No drift; arm holds 90 (or 45) degrees for full 10 seconds 5b. Right Arm: 0 - No drift; arm holds 90 (or 45) degrees for full 10 seconds 6a. Left Le - No drift; leg holds 30-degree position for full 5 seconds 6b. Right Le - No drift; leg holds 30-degree position for full 5 seconds 7. Limb Ataxia: 0 - Absent 8. Sensory: 0 - Normal; no sensory loss 9. Best Language: 0 - No aphasia; normal 10. Dysarthria: 0 - Normal 11. Extinction and Inattention: 0 - No abnormality Total: 1 Stroke Questions Stroke Team Activated: Yes Reviewed Inclusion/Exclusion criteria: Yes IV Thrombolytic Administered: No (Patient is on Eliquis.) No contraindications from thrombolytic administration: No What to do if you have Problems For any increased pain, shortness of breath, bleeding, nausea or vomiting, chestpain, or any unexpected problems, contact your Primary Care Provider. Call [employer] [facility] ([phone]) or report to the closest Emergency Room. Call 911 if necessary. 01/22/252027 <Electronically signed by Alejandro Chaudhari MD> Cosigner Signature (if applicable): CC: Dr. Yenifer Gonsalez MD ~ Signed [facility] Work Phone: [phone] History and physical note [facility] Medical Records Department [address] [place] [address] History & Physical Exam 01/22/252045 MR#: [id number] Acct: [id number] Name: ELIZABETH RODRIGEZ Rep #:[id number] : 1945 79 From: Pablo Fernandes MD PCP: Dr. Yenifer Gonsalez MD Status:JARED Arroyo [facility] Location: PCU [id number] HPI - General General Date of Admission: 01/22/25 Date of Service: 01/22/25 Chief Complaint: acute change in sensorium HPI Narrative ELIZABETH RODRIGEZ, is a 79 F who presents to the emergency room after an acute onset of vertigo which beganwhile the patient was purchasing [facility] the [facility]. Patient states she has never hadsevere vertigo like this happen to her before. She complained of double vision at the time. Patientwas sent to the emergency room and a stroke team was called. She was not deemed a candidate forTNKase due to currently being on Eliquis. She does have a significant history of essential hypertension,abdominal aortic aneurysm, paroxysmal atrial fibrillation for which she takes Eliquis, prior stroke, vertigo previously with cerebrovascular accident and right homonymous superior quadrantanopia. Patient currently has a slight headache with and has no trouble speaking or swallowing during my evaluation. She denies paresthesia or weakness of her upper extremities or lower extremities. She does have a history of walking difficultybut states her current ability is worse than usual. Her vertigo reso lved after an hour of symptoms. In she is completely resolved at this time. She will be admitted for observation and MRI ordered according to telestroke consultation. 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 Arthritis Obesity Hyperlipidemia Vulvar dermatitis Lichen sclerosus Diabetes Sarcoidosis Spleen anomaly Splenomegaly History of blood clots Sleep apnea Hemorrhoids BMI 36.0-36.9,adult History of PSVT (paroxysmal supraventricular tachycardia) Home Medications ?Medication ?Instructions ?Recorded ?Last Taken ?Type paroxetine HCl 20 mg tablet (Paxil) 40 mg PO DAILY DEP RESSION 04/03/16 01/22/25 History verapamil 80 mg tablet 80 mg PO BID HEART 04/03/16 01/22/25 History gabapentin 400 mg capsule 400 mg PO TID nerve pain 11/1701/22/25 History fluticasone propionate 50 1 spray intranasal DAILY 01/21/25 History mcg/actuation nasal spray,suspension (Flonase Allergy Relief) apixaban 5 mg tablet (Eliquis) 5 mg PO BID 30 days #60 tabs 12/19/22 01/22/25 Rx biotin 1 mg capsule 1 mg PO DAILY 01/22/2501/22 History cholecalciferol (vitamin D3) 50 50 mcg PO DAILY 01/22/25 History mcg (2,000 unit) tablet (Thera-D) magnesium 250 mg tablet 250 mg PO DAILY 01/22/25 History meclizine 25 mg tablet 25 mg PO 4X/DAY PRN Dizzines s 01/22/25 Unknown History mecobalamin (vitamin B12) 1,000 1,000 mcg PO DAILY 01/22/25 History mcg lozenges metformin 500 mg tablet,extended 500 mg PO BID 01/22/25 History release 24 hr multivitamin (Multiple Vitamins 1 tab PO DAILY 5 01/22/25 History tablet) paroxetine HCl 20 mg tablet 10 mg PO QHS 01/22/2512/27 History rosuvastatin 10 mg tablet 10 mg PO DAILY 01/22/2512/27 History Allergy/AdvReac Type Severity Reaction Status Date / Time lidocaine Allergy Intermediate tachycardia Verified 06/23/23 10:34 Penicillins Allergy Hives Verified 06/23/23 10:34 atorvastatin AdvReac Pain in Verified 06/23/23 10:34 joints hydrocodone bitartrate (From AdvReac Vomiting Verified 06/23/23 10:34 Vicodin) oxycodone HCl (From Percocet) AdvReac Vomiting Verified 06/23/23 10:34 Family History Daughter Hypertension Father Heart disease Mother Dementia Surgical History History of breast biopsy H/O splenectomy History of hysterectomy Social History Smoking Status: Never smoker alcohol intake: current details: social substance use type: does not use caffeine: Yes what type of physical activity do you participate in: walking seatbelt use: always do you feel safe at home: Yes 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 Constitutional: Denies chills or fever(s) Eyes Eyes: Reports double vision ENT HEENT: Denies abnormal hearing Cardiovascular Cardiovascular: Denies chest pain Respiratory/Chest Respiratory/Chest: Denies cough Gastrointestinal Gastrointestinal: Denies abdominal pain Genitourinary Genitourinary: Denies dysuria Musculoskeletal Musculoskeletal: Denies back pain Integumentary Integumentary: Denies dry skin Neurologic Neurologic: Reports abnormal gait and sensory deficit Psychiatric Psychiatric: Denies anxiety Vital Signs Vital Signs Vital Signs: 01/22/25 17:45 01/22/25 17:48 01/22/25 17:54 Temperature 98.0 F Temperature Source Oral Pulse Rate 90 Respiratory Rate 14 Respiratory Effort Normal Respiratory Pattern Normal Blood Pressure 160/81 H Blood Pressure Mean 107 Pulse Ox 95 Oxygen Delivery Method Room Air Room Air 01/22/25 18:09 01/22/25 18:24 01/22/25 19:00 Temperature 98.1 F Temperature Source Oral Pulse Rate 93 85 83 Respiratory Rate 20 H 16 14 Respiratory Effort Respiratory Pattern Blood Pressure 156/93 H 143/86 H 144/81 H Blood Pressure Mean 114 105 102 Pulse Ox 95 93 94 Oxygen Delivery Method Room Air Room Air Room Air 01/22/25 19:30 01/22/25 20:00 01/22/25 20:13 Temperature 98.4 F 98.4 F Temperature Source Oral Pulse Rate 85 92 90 Respiratory Rate 20 H 17 18 Respiratory Effort Respiratory Pattern Blood Pressure 139/77 H 162/87 H 162/87 H Blood Pressure Mean 97 112 112 Pulse Ox 93 92 95 Oxygen Delivery Method Room Air Room Air Weight Weight: 183 lb 14.4 oz Body Mass Index (BMI) 34.7 Physical Exam Const alert, oriented x3 and no apparent distress General Appearance: cooperative and well developed HEENT normocephalic and head/scalp atraumatic Eyes PERRL and EOMs intact bilaterally Neck no lymphadenopathy General: trachea midline Lymph Lymphatic: no lymphadenopathy noted Resp normal respiratory effort, normal air movement and clear to auscultation bilaterally Cardio regular rate, regular rhythm, S1 normal heart sound and S2 normal heart sound GI normal to inspection, nondistended, normoactive bowel sounds Extremity normal capillary refill Skin General Skin Exam: no breakdown Neuro CN's II-XII intact bilaterally, no focal motor deficits and no sensory deficits noted Coordination / Balance: [id number] test normal Speech: speech normal Motor Exam: strength 5/5 throughout Psych thought process normal, cooperative and affect normal Appearance: appropriate Results Lab / Micro Data 01/22/25 17:20 01/22/25 17:20 Labs: Laboratory Results - last 24 hr 01/22/25 17:20: WBC 13.5 H, RBC 4.37, Hgb 13.7, Hct 41.0, MCV 93.8, MCH 31.4, MCHC 33.4, RDW Std Deviation 55.5 H, RDW Coeff of Kadi 16.2 H, Plt Count 386, MPV11.5, Immature Gran % (Auto) 0.300, Neut % (Auto) 39.9 L, Lymph % (Auto) 46.6 H,[place] % (Auto) 12.1 H, Eos % (Auto) 0.8, Baso % (Auto) 0.3, Absolute Neuts (auto)5.4, Absolute Lymphs (auto) 6.29 H, Nucleated RBC % 0, Platelet Estimate ADEQUATE, PT 16.2 H, INR 1.3, APTT 26.8, Sodium 136, Potassium 4.0, Chloride 99,Carbon Dioxide 23.2, Anion Gap 14, BUN 11, Creatinine 0.85, Estim Creat Clear Calc 54.29, Est GFR (MDRD) Non-Af 70, BUN/Creatinine Ratio 13.0, Glucose 102 H, Calcium 9.7, Troponin T High Sens 8 01/22/25 18:10: POC Glucose 97 Imaging Radiology Impression Brain CT 01/22/25 17:54 IMPRESSION: 1. No acute intracranial finding. 2. Findings of chronic microvascular ischemic changes and age-related changes. Reading Location: [facility] Head/Neck CTA 01/22/25 17:55 IMPRESSION: 1. No large vessel occlusion, AVM or aneurysm. 2. No stenosis of the cervical carotid arteries by NASCET criteria. Reading Location: [facility] Assessment & Plan Assessment/Plan (1) Adult BMI 34.0-34.9 kg/sq m: (2) Elevated blood pressure reading with diagnosis of hypertension: (3) Anticoagulant long-term use: (4) Vertigo of central origin: PLAN: Plan 1 acute onset of vertigo suspect transient ischemic attack?admit patient for observation to progressive care unit, neurologic checks per routine, MRI in the a.m., CBC BMP, fasting lipid panel and echocardiogram to be done in the morning,patient is already on anticoagulation therapy 2. History of atrial fibrillation patient is on Eliquis and will continue to beso 3. Hypertension?continue antihypertensive medication 4. DVT prophylaxis?continue Eliquis patient is already on Charges/Coding Visit Charges OBSV E&M: 27479 Observ/hosp same date L2 01/22/252054 Cosigner Signature (if applicable): CC: Dr. Yenifer Gonsalez MD; Dr. Pablo Fernandes MD~ Signed [facility]04-28-2025 [facility] Medical Records Department [address] [place] [address] History Physical Exam 01/22/252045 MR#: [id number] Acct: [id number] Name: ELIZABETH RODRIGEZ Rep #: [id number] : 1945 79 From: Pablo Fernandes MD PCP: Dr. 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 Patient states she has never had severe vertigo like this happen to her before. She complained of double vision at the time. Patient was sent to the emergency room and a stroke team was called. She was not deemed a candidate for TNKase due to currently being on Eliquis. She does have a significant history of essential hypertension, abdominal aortic aneurysm, paroxysmal atrial fibrillation for which she takes Eliquis, prior stroke, vertigo previously with cerebrovascular accident and right homonymous superior quadrantanopia. Patient currently has a slight headache with and has no trouble speaking or swallowing during my evaluation. She denies paresthesia or weakness of her upper extremities or lower extremities. She does have a history of walking difficulty but states her current ability is worse than usual. Her vertigo resolved after an hour of symptoms. In she is completely resolved at this time. She will be admitted for observation and MRI ordered according to telestroke consultation. 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 Arthritis Obesity Hyperlipidemia Vulvar dermatitis Lichen sclerosus Diabetes Sarcoidosis Spleen anomaly Splenomegaly History of blood clots Sleep apnea Hemorrhoids BMI 36.0-36.9,adult History of PSVT (paroxysmal supraventricular tachycardia) Home Medications ???Medication ???Instructions ???Recorded ???Last Taken ???Type paroxetine HCl 20 mg tablet (Paxil) 40 mg PO DAILY DEPRESSION 04/0301/22/25 History verapamil 80 mg tablet 80 mg PO BID HEART 04/03/16 History gabapentin 400 mg capsule 400 mg PO TID nerve pain 10/29/20 01/22/25 History fluticasone propionate 50 1 spray intranasal DAILY 09/09/21 01/21/25 History mcg/actuation nasal spray,suspension (Flonase Allergy Relief) apixaban 5 mg tablet (Eliquis) 5 mg PO BID 30 days #60 tabs 12/1901/22/25 Rx biotin 1 mg capsule 1 mg PO DAILY 01/22/25 01/22/25 Hi story cholecalciferol (vitamin D3) 50 50 mcg PO DAILY 01/22/25 01/22/25 History mcg (2,000 unit) tablet (Thera-D) magnesium 250 mg tablet 250 mg PO DAILY 01/22/25 01/22/25 History meclizine 25 mg tablet 25 mg PO 4X/DAY PRN Dizziness 12/27 05/21 Unknown History mecobalamin (vitamin B12) 1,000 1,000 mcg PO DAILY 01/22/25 History mcg lozenges metformin 500 mg tablet,extended 500 mg PO BID 01/22/25 01/22/25 Hi story release 24 hr multivitamin (Multiple Vitamins 1 tab PO DAILY 01/22/25 01/22/25 H istory tablet) paroxetine HCl 20 mg tablet 10 mg PO QHS 01/22/25 01/21/25 His tory rosuvastatin 10 mg tablet 10 mg PO DAILY 01/22/25 01/21/25 H istory Allergy/AdvReac Type Severity Reaction Status Date / Time lidocaine Allergy Intermediate tachycardia Verified 06/23/23 10:34 Penicillins Allergy Hives Verified 06/23/23 10:34 atorvastatin AdvReac Pain in Verified 06/23/23 10:34 joints hydrocodone bitartrate (From AdvReac Vomiting Verified 06/23/23 10:34 Vicodin) oxycodone HCl (From Percocet) AdvReac Vomiting Verified 06/23/23 10:34 Family History Daughter Hypertension Father Heart disease Mother Dementia Surgical History History of breast biopsy H/O splenectomy History of hysterectomy Social History Smoking Status: Never smoker alcohol intake: current details: social substance use type: does not use caffeine: Yes what type of physical activity do you participate in: walking seatbelt use: always do you feel safe at home: Yes 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 Yenifer Gonsalez MD Status:JARED CASTELLANOS Location: [place] [address] HPI History of Present Illness Chief Complaint: Syncope Detail of Chief Complaint: Vertigo and diplopia Informant: patient and spouse/S.O. Onset/Context/Timing Onset: Today (1709) Context: Sudden Onset Timing: Continuous Quality: Vertigo [facility] Current Severity: Moderate Maximum Severity: Severe Worsened by: Nothing Relieved by: Nothing Associated Symptoms Associated Symptoms: Double vision and visual field cut Narrative Narrative: Patient is a 79-year-old woman. She has history of essential hypertension, abdominal aortic aneurysm, paroxysmal atrial fibrillation on Eliquis, prior stroke, vertigo due to cerebrovascular disease, right homonymous superior quadrantanopia. 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 She states she is never had vertigo like this before. She also has double vision. In light of this nurse was asked to have someone paged a stroke team. She is not a candidate for TNKase since she is on Eliquis. Patient has slight headache. She has trouble speech or swallowing. Denies paresthesia, anesthesia Medicus. Denies weakness in her upper or lower extremities. She does have difficulty walking. She hasa history of difficultywalking as well. Her ability to ambulate is worse now. 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 Arthritis Obesity Hyperlipidemia Vulvar dermatitis Lichen sclerosus Diabetes Sarcoidosis Spleen anomaly Splenomegaly History of blood clots Sleep apnea Hemorrhoids BMI 36.0-36.9,adult History of PSVT (paroxysmal supraventricular tachycardia) Home Medications ?Medication ?Instructions ?Recorded ?Last Taken ?Type paroxetine HCl 20 mg tablet (Paxil) 40 mg PO DAILY DEP RESSION 04/03/16 01/22/25 History verapamil 80 mg tablet 80 mg PO BID HEART 04/03/16 01/22/25 History gabapentin 400 mg capsule 400 mg PO TID nerve pain 11/1701/22/25 History fluticasone propionate 50 1 spray intranasal DAILY 01/21/25 History mcg/actuation nasal spray,suspension (Flonase Allergy Relief) apixaban 5 mg tablet (Eliquis) 5 mg PO BID 30 days #60 tabs 12/19/22 01/22/25 Rx biotin 1 mg capsule 1 mg PO DAILY 01/22/2501/22 History cholecalciferol (vitamin D3) 50 50 mcg PO DAILY 01/22/25 History mcg (2,000 unit) tablet (Thera-D) magnesium 250 mg tablet 250 mg PO DAILY 01/22/25 History meclizine 25 mg tablet 25 mg PO 4X/DAY PRN Dizzines s 01/22/25 Unknown History mecobalamin (vitamin B12) 1,000 1,000 mcg PO DAILY 01/22/25 History mcg lozenges metformin 500 mg tablet,extended 500 mg PO BID 5 01/22/25 History release 24 hr multivitamin (Multiple Vitamins 1 tab PO DAILY 5 01/22/25 History tablet) paroxetine HCl 20 mg tablet 10 mg PO QHS 01/22/2512/27 History rosuvastatin 10 mg tablet 10 mg PO DAILY 01/22/2512/27 History Allergy/AdvReac Type Severity Reaction Status Date / Time lidocaine Allergy Intermediate tachycardia Verified 06/23/23 10:34 Penicillins Allergy Hives Verified 06/23/23 10:34 atorvastatin AdvReac Pain in Verified 06/23/23 10:34 joints hydrocodone bitartrate (From AdvReac Vomiting Verified 06/23/23 10:34 Vicodin) oxycodone HCl (From Percocet) AdvReac Vomiting Verified 06/23/23 10:34 Family History Daughter Hypertension Father Heart disease Mother Dementia Surgical History History of breast biopsy H/O splenectomy History of hysterectomy Social History Smoking Status: Never smoker alcohol intake: current details: social substance use type: does not use caffeine: Yes what type of physical activity do you participate in: walking seatbelt use: always do you feel safe at home: Yes 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 ED Constitutional Constitutional ED: Denies chills, fever(s), subjective or sweats Eyes Eyes: Reports diplopia; Denies blurry vision or change in vision ENT ENT ED: Denies ear pain, rhinorrhea or sore throat Cardiovascular Cardiovascular: Denies chest pain, orthopnea, palpitations or paroxysmal nocturnal dyspnea Respiratory/Chest Respiratory/Chest: Denies cough, dyspnea, dyspnea on exertion, orthopnea or paroxysmal nocturnal dyspnea Gastrointestinal Gastrointestinal: Denies abdominal pain, nausea or vomiting Genitourinary Genitourinary ED: Denies dysuria, hematuria or urinary frequency Musculoskeletal Musculoskeletal: Denies arthralgias or myalgias Integumentary Denies rash Neurologic Neurologic: Reports headache(s); Denies paresthesias or weakness Endocrine Endocrinology: Denies cold intolerance or heat intolerance Hematologic/Lymphatic Hematologic/Lymphatic: Reports systems reviewed and no addt'l complaints, exceptas documented EXAM Physical Exam Const Vital Signs: 01/22/25 17:45 01/22/25 17:48 01/22/25 17:54 Temperature 98.0 F Temperature Source Oral Pulse Rate 90 Respiratory Rate 14 Respiratory Effort Normal Respiratory Pattern Normal Blood Pressure 160/81 H Blood Pressure Mean 107 Pulse Ox 95 Oxygen Delivery Method Room Air Room Air 01/22/25 18:09 01/22/25 18:24 01/22/25 19:00 Temperature 98.1 F Temperature Source Oral Pulse Rate 93 85 83 Respiratory Rate 20 H 16 14 Respiratory Effort Respiratory Pattern Blood Pressure 156/93 H 143/86 H 144/81 H Blood Pressure Mean 114 105 102 Pulse Ox 95 93 94 Oxygen Delivery Method Room Air Room Air Room Air 01/22/25 19:30 01/22/25 20:00 01/22/25 20:13 Temperature 98.4 F 98.4 F Temperature Source Oral Pulse Rate 85 92 90 Respiratory Rate 20 H 17 18 Respiratory Effort Respiratory Pattern Blood Pressure 139/77 H 162/87 H 162/87 H Blood Pressure Mean 97 112 112 Pulse Ox 93 92 95 Oxygen Delivery Method Room Air Room Air Positive well nourished and well developed Constitutional Narrative: BMI is 34.7. Blood pressure slightly evaded 160/81. Patient looks slightly pale. General Appearance ED: well developed and pallor HEENT Reports moist mucous membranes HEENT Narrative: Head is atraumatic normocephalic. Ears normal. Nares patent. Negative for trauma or tenderness Eyes PERRL Eyes Narrative: There is no nystagmus or central gaze. However, she reports diplopia. She states when it started she had triple vision . General Eye ED: Negative for pale conjunctiva or scleral icterus Neck no lymphadenopathy, supple and no JVD Resp normal respiratory effort and clear to auscultation bilaterally Cardio regular rate, regular rhythm, S1 normal heart sound, S2 normal heart sound and no murmurs GI normal to inspection, nondistended, normoactive bowel sounds, non-tender, non- distended and no masses; Negative for hepatosplenomegaly Back/Spine no CVA tenderness Extremity normal to inspection General Extremety ED: Negative for edema or tenderness General Extremity: Negative for edema Neuro oriented x3, CN's II-XII intact bilaterally and no sensory deficits noted Neuro Narrative: There is no dysmetria. He will ramsey was performed adequately. 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 With patient of diplopia and visual field cut this is central and consistent with stroke. Patient is not a candidate for TNK because she is on Eliquis for paroxysmal atrial fibrillation. Will open another EMR to document NIH since this document does not have a NIH score score or all the other appropriate documentations necessary. Lab Data Labs: Laboratory Results - last 24 hr 01/22/25 01/22/25 17:20 18:10 WBC 13.5 H RBC 4.37 Hgb 13.7 Hct 41.0 MCV 93.8 MCH 31.4 MCHC 33.4 RDW Std Deviation 55.5 H RDW Coeff of Kadi 16.2 H Plt Count 386 MPV 11.5 Immature Gran % (Auto) 0.300 Neut % (Auto) 39.9 L Lymph % (Auto) 46.6 H [place] % (Auto) 12.1 H Eos % (Auto) 0.8 Baso % (Auto) 0.3 Absolute Neuts (auto) 5.4 Absolute Lymphs (auto) 6.29 H Nucleated RBC % 0 PT 16.2 H INR 1.3 APTT 26.8 Sodium 136 Potassium 4.0 Chloride 99 Carbon Dioxide 23.2 Anion Gap 14 BUN 11 Creatinine 0.85 Estim Creat Clear Calc 54.29 Est GFR (MDRD) Non-Af 70 BUN/Creatinine Ratio 13.0 Glucose 102 H Calcium 9.7 Troponin T High Sens 8 POC Glucose 97 Radiography Diagnostic Testing: Clinical Impression(s) from Imaging Studies Brain CT 01/22/25 17:54 IMPRESSION: 1. No acute intracranial finding. 2. Findings of chronic microvascular ischemic changes and age-related changes. Reading Location: [facility] Head/Neck CTA 01/22/25 17:55 IMPRESSION: 1. No large vessel occlusion, AVM or aneurysm. 2. No stenosis of the cervical carotid arteries by NASCET criteria. Reading Location: [facility] C-minus of the head per my review reveals no evidence of bleed. There is no sinus pathology. There is no asymmetry noted. Awaiting formal read by radiologist. As previously noted patient is not a candidate for TNKase since she is on Eliquis. Discharge Plan Dx/Rx/DC Orders Clinical Impression: Vertigo of central origin, Diplopia, Left homonymous superior quadrantanopia, Anticoagulant long-term use, Hyperlipidemia, Elevated blood pressure reading with diagnosis of hypertension, Adult BMI 34.0-34.9 kg/sq m Disposition Disposition: Acute Care Hospital [facility] What to do if you have Problems For any increased pain, shortness of breath, bleeding, nausea or vomiting, chestpain, or any unexpected problems, contact your Primary Care Provider. Call [facility] ([phone]) or report tothe closest Emergency Room. Call 911 if necessary. 01/22/252028 Cosigner Signature (if applicable): CC: Dr. Yenifer Gonsalez MD ~ Signed [facility]04-28-2025 Discharge summary [facility] Medical Records Department [address] [place] [address] Emergency Department Summary 01/22/25 MR#: [id number] Acct: [id number] Name: ELIZABETH RODRIGEZ Rep #:[id number] : 1945 79 From: Alejandro Chaudhari MD PCP: Dr. 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 Arthritis Obesity Hyperlipidemia Vulvar dermatitis Lichen sclerosus Diabetes Sarcoidosis Spleen anomaly Splenomegaly History of blood clots Sleep apnea Hemorrhoids BMI 36.0-36.9,adult History of PSVT (paroxysmal supraventricular tachycardia) Home Medications ?Medication ?Instructions ?Recorded ?Last Taken ?Type paroxetine HCl 20 mg tablet (Paxil) 40 mg PO DAILY DEP RESSION 04/03/16 01/22/25 History verapamil 80 mg tablet 80 mg PO BID HEART 04/03/16 01/22/25 History gabapentin 400 mg capsule 400 mg PO TID nerve pain 11/1701/22/25 History fluticasone propionate 50 1 spray intranasal DAILY 01/21/25 History mcg/actuation nasal spray,suspension (Flonase Allergy Relief) apixaban 5 mg tablet (Eliquis) 5 mg PO BID 30 days #60 tabs 12/19/22 01/22/25 Rx biotin 1 mg capsule 1 mg PO DAILY 01/22/2501/22 History cholecalciferol (vitamin D3) 50 50 mcg PO DAILY 01/22/25 History mcg (2,000 unit) tablet (Thera-D) magnesium 250 mg tablet 250 mg PO DAILY 01/22/25 History meclizine 25 mg tablet 25 mg PO 4X/DAY PRN Dizzines s 01/22/25 Unknown History mecobalamin (vitamin B12) 1,000 1,000 mcg PO DAILY 01/22/25 History mcg lozenges metformin 500 mg tablet,extended 500 mg PO BID 5 01/22/25 History release 24 hr multivitamin (Multiple Vitamins 1 tab PO DAILY 5 01/22/25 History tablet) paroxetine HCl 20 mg tablet 10 mg PO QHS 01/22/2512/27 History rosuvastatin 10 mg tablet 10 mg PO DAILY 01/22/25/04/20 History Allergy/AdvReac Type Severity Reaction Status Date / Time lidocaine Allergy Intermediate tachycardia Verified 06/23/23 10:34 Penicillins Allergy Hives Verified 06/23/23 10:34 atorvastatin AdvReac Pain in Verified 06/23/23 10:34 joints hydrocodone bitartrate (From AdvReac Vomiting Verified 06/23/23 10:34 Vicodin) oxycodone HCl (From Percocet) AdvReac Vomiting Verified 06/23/23 10:34 Family History Daughter Hypertension Father Heart disease Mother Dementia Surgical History History of breast biopsy H/O splenectomy History of hysterectomy Social History Smoking Status: Never smoker alcohol intake: current details: social substance use type: does not use caffeine: Yes what type of physical activity do you participate in: walking seatbelt use: always do you feel safe at home: Yes 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 Physical Exam Const Vital Signs: 01/22/25 17:45 01/22/25 17:48 01/22/25 17:54 Temperature 98.0 F Temperature Source Oral Pulse Rate 90 Respiratory Rate 14 Respiratory Effort Normal Respiratory Pattern Normal Blood Pressure 160/81 H Blood Pressure Mean 107 Pulse Ox 95 Oxygen Delivery Method Room Air Room Air 01/22/25 18:09 01/22/25 18:24 01/22/25 19:00 Temperature 98.1 F Temperature Source Oral Pulse Rate 93 85 83 Respiratory Rate 20 H 16 14 Respiratory Effort Respiratory Pattern Blood Pressure 156/93 H 143/86 H 144/81 H Blood Pressure Mean 114 105 102 Pulse Ox 95 93 94 Oxygen Delivery Method Room Air Room Air Room Air 01/22/25 19:30 01/22/25 20:00 01/22/25 20:13 Temperature 98.4 F 98.4 F Temperature Source Oral Pulse Rate 85 92 90 Respiratory Rate 20 H 17 18 Respiratory Effort Respiratory Pattern Blood Pressure 139/77 H 162/87 H 162/87 H Blood Pressure Mean 97 112 112 Pulse Ox 93 92 95 Oxygen Delivery Method Room Air Room Air MDM MDM Lab Data Attestation: I reviewed the patient's lab results. Lab results narrative: White count is elevated 13.5 thousand there is a predominant lymphocytes. Electrolyte panel is unremarkable. Troponin is normal. Labs: Laboratory Results - last 24 hr 01/22/25 01/22/25 17:20 18:10 WBC 13.5 H RBC 4.37 Hgb 13.7 Hct 41.0 MCV 93.8 MCH 31.4 MCHC 33.4 RDW Std Deviation 55.5 H RDW Coeff of Kadi 16.2 H Plt Count 386 MPV 11.5 Immature Gran % (Auto) 0.300 Neut % (Auto) 39.9 L Lymph % (Auto) 46.6 H [place] % (Auto) 12.1 H Eos % (Auto) 0.8 Baso % (Auto) 0.3 Absolute Neuts (auto) 5.4 Absolute Lymphs (auto) 6.29 H Nucleated RBC % 0 PT 16.2 H INR 1.3 APTT 26.8 Sodium 136 Potassium 4.0 Chloride 99 Carbon Dioxide 23.2 Anion Gap 14 BUN 11 Creatinine 0.85 Estim Creat Clear Calc 54.29 Est GFR (MDRD) Non-Af 70 BUN/Creatinine Ratio 13.0 Glucose 102 H Calcium 9.7 Troponin T High Sens 8 POC Glucose 97 Radiography Diagnostic Testing: Clinical Impression(s) from Imaging Studies Brain CT 01/22/25 17:54 IMPRESSION: 1. No acute intracranial finding. 2. Findings of chronic microvascular ischemic changes and age-related changes. Reading Location: [facility] Head/Neck CTA 01/22/25 17:55 IMPRESSION: 1. No large vessel occlusion, AVM or aneurysm. 2. No stenosis of the cervical carotid arteries by NASCET criteria. Reading Location: [facility] CT minus head was independent reviewed interpreted by me. There is evidence of small vessel disease. CTA was done by radiology as no large vessel occlusion, AVM or aneurysm. There is no stenosis of the cervical carotid arteries by NASCET criteria. EKG Initial EKG: Attestation: I personally reviewed and interpreted this EKG as follows: Interpretation: Sinus Rhythm (Rate is 87. [place] interval is 174 ms. Cures duration 72 ms. QT duration 296 ms. Bentley is normal. Computer is reading inferior infarct of undetermined age. I am in disagreement. 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 Waters plan is PCU observation with stroke workup especially since she has multiple risk factors. The hospitalist was paged. The hospitalist receiving isDr. Fernandes. Discharge Plan Dx/Rx/DC Orders Clinical Impression: Vertigo of central origin, Diplopia, Left homonymous superior quadrantanopia, Anticoagulant long-term use, Hyperlipidemia, Elevated blood pressure reading with diagnosis of hypertension, Adult BMI 34.0-34.9 kg/sq m Disposition Disposition: Acute Care Hospital [facility] NIHSS NIHSS 1a. Level of Consciousness: 0 - Alert; keenly responsive 1b. LOC Questions: 0 - Answers BOTH questions correctly 1c. LOC Commands: 0 - Performs BOTH tasks correctly 2. Best Gaze: 0 - Normal 3. Visual: 1 - Partial hemianopia 4. Facial Palsy: 0 - Normal symmetrical movements 5a. Left Arm: 0 - No drift; arm holds 90 (or 45) degrees for full 10 seconds 5b. Right Arm: 0 - No drift; arm holds 90 (or 45) degrees for full 10 seconds 6a. Left Le - No drift; leg holds 30-degree position for full 5 seconds 6b. Right Le - No drift; leg holds 30-degree position for full 5 seconds 7. Limb Ataxia: 0 - Absent 8. Sensory: 0 - Normal; no sensory loss 9. Best Language: 0 - No aphasia; normal 10. Dysarthria: 0 - Normal 11. Extinction and Inattention: 0 - No abnormality Total: 1 Stroke Questions Stroke Team Activated: Yes Reviewed Inclusion/Exclusion criteria: Yes IV Thrombolytic Administered: No (Patient is on Eliquis.) No contraindications from thrombolytic administration: No What to do if you have Problems For any increased pain, shortness of breath, bleeding, nausea or vomiting, chestpain, or any unexpected problems, contact your Primary Care Provider. Call [employer] [facility] ([phone]) or report tothe closest Emergency Room. Call 911 if necessary. 01/22/252027 Cosigner Signature (if applicable): CC: Dr. Yenifer Gonsalez MD ~ Signed [facility]04-28-2025 Radiology Diagnostic study note [facility] Imaging Services [address] [place] [id number] STROKE CTA Head AND Neck W/Con MR#: [id number] Acct: [id number] Name: ELIZABETH RODRIGEZ Rep #: [id number] : 1945 F 79 From: Dede Hodges MD PCP: Dr. Yenifer Gonsalez MD Status: RE G ER Study:STROKE CTA Head AND Neck W/Con Date of Exam: 01/22/25 Exam# [id number] Ordering Dr: Jammie Chaudhari MD PROCEDURE: STROKE CTA HEAD AND NECK W/CON 01/22/2025 REASON FOR EXAM: NEURO DEFICIT, ACUTE, STROKE SUSPECTED TECHNIQUE: CTA imaging of the head and neck from the aortic arch to the skull vertex with out constrast and with intravenous contrast. Multiplanar and multisequence images were obtained. 3D post processing with reformations, Maximum intensity projection (MIPs) Volume rendering and Shaded surface rendering was provided. CONTRAST: Isovue 370 VOLUME: 100 mL One or more dose reduction techniques were used (e.g., Automated exposure control, adjustment of the mA and/or kV according to patient size, use of iterative reconstruction technique). RADIATION DOSE SUMMARY: CTDlvol: 40 mGy DLP: 730 mGycm COMPARISON: Same-day CT head, CT head 01/12/2025. FINDINGS: See same day CT head for discussion of nonvascular findings. Three-vessel aortic arch with mixed calcific plaque of the aortic arch and its branch vessels without focal stenosis or occlusion. Calcific plaque of the right vertebral artery off its origin resulting in mild focal stenosis. The left vertebral artery is widely patent and dominant. Calcific plaque of the bilateral cervicalcarotid and cervicalICAs without focal stenosis by NASCET criteria. Minimal calcific plaque of the right carotid siphon. The bilateral anterior, middle and posterior cerebral arteries are widely patent. No aneurysm or AVM. origin of the left [employer]. Major venous structures: Unremarkable. Other findings: Cervical spondylosis. Mild biapical atelectasis/scarring. CT/STROKE CTA Head AND Neck W/Con IMPRESSION: 1. No large vessel occlusion, AVM or aneurysm. 2. No stenosis of the cervical carotid arteries by NASCET criteria. Reading Location: [facility] CC: Dr. Yenifer Gonsalez MD; Dr. Alejandro Chaudhari MD ~ Home Therapy Clinician: Signed [facility]04-28-2025 Radiology Diagnostic study note [facility] Imaging Services [address] [place] [address] STROKE Brain/Head without Cont MR#: [id number] Acct: [id number] Name: ELIZABETH RODRIGEZ Rep #: [id number] : 1945 79 From: Dede Hodges MD PCP: Dr. Yenifer Gonsalez MD Status: RE G ER Study:STROKE Brain/Head without Cont Date of Exam: 01/22/25 Exam# [id number] Ordering Dr: Jammie Chaudhari MD EXAM: STROKE BRAIN/HEAD WITHOUT CONT CLINICAL HISTORY: 79 y/o F with NEURO DEFICIT, ACUTE, STROKE SUSPECTED. Symptoms of diplopia and superior left homonymous quadrant visual disturbance. COMPARISON: CT head 01/12/2025. TECHNIQUE: Routine CT imaging of the head without IV contrast. Additional multiplanar reformats were obtained. Dose reduction techniques were used including intermediate exposure control (AEC),iterative reconstruction technique, and/or mA and/or KV dose adjustments based on patient's size. FINDINGS: Mild cerebral and cerebellar atrophy with concordant prominence of the ventricles and subarachnoid spaces. Mild patchy supratentorial white matter hypodensities. Chronic lacunar type infarcts withinthe bilateral caudate heads, anterior limb of the right internal capsule and bilateral basal ganglia. The landa-white matter interfaces are otherwise maintained. No evidence of acute intracranial hemorrhage or herniation. The orbits, visualized paranasal sinuses and mastoids are unremarkable. No acute calvarial fracture or scalp hematoma. CT/STROKE Brain/Head without Cont IMPRESSION: 1. No acute intracranial finding. 2. Findings of chronic microvascular ischemic changes and age-related changes. Reading Location: [facility] CC: Dr. Yenifer Gonsalez MD; Dr. Alejandro Chaudhari MD ~ Home Therapy Clinician: Signed [facility]04-28-2025 Discharge summary Author Alejandro Chaudhari [facility] Note Date/Time January 22, 2025 8:2 9pm [facility] Medical Records Department [address] [place] [address] Emergency Department Summary 01/22/25 MR#: [id number] Acct: [id number] Name: ELIZABETH RODRIGEZ Rep #:[id number] : 1945 79 From: Alejandro Chaudhari MD PCP: Dr. Yenifer Gonsalez MD Status:AD M JASMIN Location: [address] History of Present Illness Chief Complaint: Syncope Detail of Chief Complaint: Vertigo and diplopia Informant: patient and spouse/S.O. 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 She has history of essential hypertension, abdominal aortic aneurysm, paroxysmal atrial fibrillation on Eliquis, prior stroke, vertigo due to cerebrovascular disease, right homonymous superior quadrantanopia. She was at the [employer] purchasing rental shoes when she developed abrupt onset of vertigo. She states she is never had vertigo like this before. She also has double vision. In light of this nurse was asked to have someone paged a stroke team. She is not a candidate for TNKase since she is on Eliquis. Patient has slight headache. She has trouble speech or swallowing. Denies paresthesia, anesthesia Medicus. Denies weakness in her upper or lower extremities. She does have difficulty walking. She has a history of difficultywalking as well. Her ability to ambulate is worse now. 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 Herpes simplex vulvovaginitis Arthritis Obesity Hyperlipidemia Vulvar dermatitis Lichen sclerosus Diabetes Sarcoidosis Spleen anomaly Splenomegaly History of blood clots Sleep apnea Hemorrhoids BMI 36.0-36.9,adult History of PSVT (paroxysmal supraventricular tachycardia) Home Medications ?Medication ?Instructions ?Recorded ?Last Taken ?Type paroxetine HCl 20 mg tablet (Paxil) 40 mg PO DAILY DEP RESSION 04/03/16 01/22/25 History verapamil 80 mg tablet 80 mg PO BID HEART 04/03/16 01/22/25 History gabapentin 400 mg capsule 400 mg PO TID nerve pain 11/1701/22/25 History fluticasone propionate 50 1 spray intranasal DAILY 01/21/25 History mcg/actuation nasal spray,suspension (Flonase Allergy Relief) apixaban 5 mg tablet (Eliquis) 5 mg PO BID 30 days #60 tabs 12/19/22 01/22/25 Rx biotin 1 mg capsule 1 mg PO DAILY 01/22/2501/22 History cholecalciferol (vitamin D3) 50 50 mcg PO DAILY 01/22/25 History mcg (2,000 unit) tablet (Thera-D) magnesium 250 mg tablet 250 mg PO DAILY 01/22/25 History meclizine 25 mg tablet 25 mg PO 4X/DAY PRN Dizzines s 01/22/25 Unknown History mecobalamin (vitamin B12) 1,000 1,000 mcg PO DAILY 01/22/25 History mcg lozenges metformin 500 mg tablet,extended 500 mg PO BID 5 01/22/25 History release 24 hr multivitamin (Multiple Vitamins 1 tab PO DAILY 5 01/22/25 History tablet) paroxetine HCl 20 mg tablet 10 mg PO QHS 01/22/2512/27 History rosuvastatin 10 mg tablet 10 mg PO DAILY 01/22/2512/27 History Allergy/AdvReac Type Severity Reaction Status Date / Time lidocaine Allergy Intermediate tachycardia Verified 06/23/23 10:34 Penicillins Allergy Hives Verified 06/23/23 10:34 atorvastatin AdvReac Pain in Verified 06/23/23 10:34 joints hydrocodone bitartrate (From AdvReac Vomiting Verified 06/23/23 10:34 Vicodin) oxycodone HCl (From Percocet) AdvReac Vomiting Verified 06/23/23 10:34 Family History Daughter Hypertension Father Heart disease Mother Dementia Surgical History History of breast biopsy H/O splenectomy History of hysterectomy Social History Smoking Status: Never smoker alcohol intake: current details: social substance use type: does not use caffeine: Yes what type of physical activity do you participate in: walking seatbelt use: always do you feel safe at home: Yes 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 ED Constitutional Constitutional ED: Denies chills, fever(s), subjective or sweats Eyes Eyes: Reports diplopia; Denies blurry vision or change in vision ENT ENT ED: Denies ear pain, rhinorrhea or sore throat Cardiovascular Cardiovascular: Denies chest pain, orthopnea, palpitations or paroxysmal nocturnal dyspnea Respiratory/Chest Respiratory/Chest: Denies cough, dyspnea, dyspnea on exertion, orthopnea or paroxysmal nocturnal dyspnea Gastrointestinal Gastrointestinal: Denies abdominal pain, nausea or vomiting Genitourinary Genitourinary ED: Denies dysuria, hematuria or urinary frequency Musculoskeletal Musculoskeletal: Denies arthralgias or myalgias Integumentary Denies rash Neurologic Neurologic: Reports headache(s); Denies paresthesias or weakness Endocrine Endocrinology: Denies cold intolerance or heat intolerance Hematologic/Lymphatic Hematologic/Lymphatic: Reports systems reviewed and no addt'l complaints, exceptas documented EXAM Physical Exam Const Vital Signs: 01/22/25 17:45 01/22/25 17:48 01/22/25 17:54 Temperature 98.0 F Temperature Source Oral Pulse Rate 90 Respiratory Rate 14 Respiratory Effort Normal Respiratory Pattern Normal Blood Pressure 160/81 H Blood Pressure Mean 107 Pulse Ox 95 Oxygen Delivery Method Room Air Room Air 01/22/25 18:09 01/22/25 18:24 01/22/25 19:00 Temperature 98.1 F Temperature Source Oral Pulse Rate 93 85 83 Respiratory Rate 20 H 16 14 Respiratory Effort Respiratory Pattern Blood Pressure 156/93 H 143/86 H 144/81 H Blood Pressure Mean 114 105 102 Pulse Ox 95 93 94 Oxygen Delivery Method Room Air Room Air Room Air 01/22/25 19:30 01/22/25 20:00 01/22/25 20:13 Temperature 98.4 F 98.4 F Temperature Source Oral Pulse Rate 85 92 90 Respiratory Rate 20 H 17 18 Respiratory Effort Respiratory Pattern Blood Pressure 139/77 H 162/87 H 162/87 H Blood Pressure Mean 97 112 112 Pulse Ox 93 92 95 Oxygen Delivery Method Room Air Room Air Positive well nourished and well developed Constitutional Narrative: BMI is 34.7. Blood pressure slightly evaded 160/81. Patient looks slightly pale. General Appearance ED: well developed and pallor HEENT Reports moist mucous membranes HEENT Narrative: Head is atraumatic normocephalic. Ears normal. Nares patent. Negative for trauma or tenderness Eyes PERRL Eyes Narrative: There is no nystagmus or central gaze. However, she reports diplopia. She states when it started she had triple vision . General Eye ED: Negative for pale conjunctiva or scleral icterus Neck no lymphadenopathy, supple and no JVD Resp normal respiratory effort and clear to auscultation bilaterally Cardio regular rate, regular rhythm, S1 normal heart sound, S2 normal heart sound and no murmurs GI normal to inspection, nondistended, normoactive bowel sounds, non-tender, non-distended and no masses; Negative for hepatosplenomegaly Back/Spine no CVA tenderness Extremity normal to inspection General Extremety ED: Negative for edema or tenderness General Extremity: Negative for edema Neuro oriented x3, CN's II-XII intact bilaterally and no sensory deficits noted Neuro Narrative: There is no dysmetria. He will ramsey was performed adequately. 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 With patient of diplopia and visual field cut this is central and consistent with stroke. Patient is not a candidate for TNK because she is on Eliquis for paroxysmal atrial fibrillation. Will open another EMR to document NIH since this document does not have a NIH score score or all the other appropriate documentations necessary. Lab Data Labs: Laboratory Results - last 24 hr 01/22/25 01/22/25 17:20 18:10 WBC 13.5 H RBC 4.37 Hgb 13.7 Hct 41.0 MCV 93.8 MCH 31.4 MCHC 33.4 RDW Std Deviation 55.5 H RDW Coeff of Kadi 16.2 H Plt Count 386 MPV 11.5 Immature Gran % (Auto) 0.300 Neut % (Auto) 39.9 L Lymph % (Auto) 46.6 H [place] % (Auto) 12.1 H Eos % (Auto) 0.8 Baso % (Auto) 0.3 Absolute Neuts (auto) 5.4 Absolute Lymphs (auto) 6.29 H Nucleated RBC % 0 PT 16.2 H INR 1.3 APTT 26.8 Sodium 136 Potassium 4.0 Chloride 99 Carbon Dioxide 23.2 Anion Gap 14 BUN 11 Creatinine 0.85 Estim Creat Clear Calc 54.29 Est GFR (MDRD) Non-Af 70 BUN/Creatinine Ratio 13.0 Glucose 102 H Calcium 9.7 Troponin T High Sens 8 POC Glucose 97 Radiography Diagnostic Testing: Clinical Impression(s) from Imaging Studies Brain CT 01/22/25 17:54 IMPRESSION: 1. No acute intracranial finding. 2. Findings of chronic microvascular ischemic changes and age-related changes. Reading Location: [facility] Head/Neck CTA 01/22/25 17:55 IMPRESSION: 1. No large vessel occlusion, AVM or aneurysm. 2. No stenosis of the cervical carotid arteries by NASCET criteria. Reading Location: [facility] C-minus of the head per my review reveals no evidence of bleed. There is no sinus pathology. There is no asymmetry noted. Awaiting formal read by radiologist. As previously noted patient is not a candidate for TNKase since she is on Eliquis. Discharge Plan Dx/Rx/DC Orders Clinical Impression: Vertigo of central origin, Diplopia, Left homonymous superior quadrantanopia, Anticoagulant long-term use, Hyperlipidemia, Elevated blood pressure reading with diagnosis of hypertension, Adult BMI 34.0-34.9 kg/sq m Disposition Disposition: Acute Care Hospital [facility] What to do if you have Problems For any increased pain, shortness of breath, bleeding, nausea or vomiting, chestpain, or any unexpected problems, contact your Primary Care Provider. Call [facility] ([phone]) or report to the closest Emergency Room. Call 911 if necessary. 01/22/252028 <Electronically signed by Alejandro Chaudhari MD> Cosigner Signature (if applicable): CC: Dr. Yenifer Gonsalez MD ~ Signed [facility] Work Phone: [phone]) 905-266004-28-2025 Discharge summary Author Alejandro Chaudhari [facility] Note Date/Time January 22, 2025 8:2 8pm [facility] Medical Records Department [address] [place] [id number] Emergency Department Summary 01/22/25 MR#: [id number] Acct: [id number] Name: ELIZABETH RODRIGEZ Rep #:[id number] : 1945 79 From: Alejandro Chaudhari MD PCP: Dr. 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 Arthritis Obesity Hyperlipidemia Vulvar dermatitis Lichen sclerosus Diabetes Sarcoidosis Spleen anomaly Splenomegaly History of blood clots Sleep apnea Hemorrhoids BMI 36.0-36.9,adult History of PSVT (paroxysmal supraventricular tachycardia) Home Medications ?Medication ?Instructions ?Recorded ?Last Taken ?Type paroxetine HCl 20 mg tablet (Paxil) 40 mg PO DAILY DEP RESSION 04/03/16 01/22/25 History verapamil 80 mg tablet 80 mg PO BID HEART 04/03/16 01/22/25 History gabapentin 400 mg capsule 400 mg PO TID nerve pain 11/1701/22/25 History fluticasone propionate 50 1 spray intranasal DAILY 01/21/25 History mcg/actuation nasal spray,suspension (Flonase Allergy Relief) apixaban 5 mg tablet (Eliquis) 5 mg PO BID 30 days #60 tabs 12/19/22 01/22/25 Rx biotin 1 mg capsule 1 mg PO DAILY 01/22/2501/22 History cholecalciferol (vitamin D3) 50 50 mcg PO DAILY 01/22/25 History mcg (2,000 unit) tablet (Thera-D) magnesium 250 mg tablet 250 mg PO DAILY 01/22/25 History meclizine 25 mg tablet 25 mg PO 4X/DAY PRN Dizzines s 01/22/25 Unknown History mecobalamin (vitamin B12) 1,000 1,000 mcg PO DAILY 01/22/25 History mcg lozenges metformin 500 mg tablet,extended 500 mg PO BID 5 01/22/25 History release 24 hr multivitamin (Multiple Vitamins 1 tab PO DAILY 5 01/22/25 History tablet) paroxetine HCl 20 mg tablet 10 mg PO QHS 01/22/2512/27 History rosuvastatin 10 mg tablet 10 mg PO DAILY 01/22/2512/27 History Allergy/AdvReac Type Severity Reaction Status Date / Time lidocaine Allergy Intermediate tachycardia Verified 06/23/23 10:34 Penicillins Allergy Hives Verified 06/23/23 10:34 atorvastatin AdvReac Pain in Verified 06/23/23 10:34 joints hydrocodone bitartrate (From AdvReac Vomiting Verified 06/23/23 10:34 Vicodin) oxycodone HCl (From Percocet) AdvReac Vomiting Verified 06/23/23 10:34 Family History Daughter Hypertension Father Heart disease Mother Dementia Surgical History History of breast biopsy H/O splenectomy History of hysterectomy Social History Smoking Status: Never smoker alcohol intake: current details: social substance use type: does not use caffeine: Yes what type of physical activity do you participate in: walking seatbelt use: always do you feel safe at home: Yes 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 Physical Exam Const Vital Signs: 01/22/25 17:45 01/22/25 17:48 01/22/25 17:54 Temperature 98.0 F Temperature Source Oral Pulse Rate 90 Respiratory Rate 14 Respiratory Effort Normal Respiratory Pattern Normal Blood Pressure 160/81 H Blood Pressure Mean 107 Pulse Ox 95 Oxygen Delivery Method Room Air Room Air 01/22/25 18:09 01/22/25 18:24 01/22/25 19:00 Temperature 98.1 F Temperature Source Oral Pulse Rate 93 85 83 Respiratory Rate 20 H 16 14 Respiratory Effort Respiratory Pattern Blood Pressure 156/93 H 143/86 H 144/81 H Blood Pressure Mean 114 105 102 Pulse Ox 95 93 94 Oxygen Delivery Method Room Air Room Air Room Air 01/22/25 19:30 01/22/25 20:00 01/22/25 20:13 Temperature 98.4 F 98.4 F Temperature Source Oral Pulse Rate 85 92 90 Respiratory Rate 20 H 17 18 Respiratory Effort Respiratory Pattern Blood Pressure 139/77 H 162/87 H 162/87 H Blood Pressure Mean 97 112 112 Pulse Ox 93 92 95 Oxygen Delivery Method Room Air Room Air MDM MDM Lab Data Attestation: I reviewed the patient's lab results. Lab results narrative: White count is elevated 13.5 thousand there is a predominant lymphocytes. Electrolyte panel is unremarkable. Troponin is normal. Labs: Laboratory Results - last 24 hr 01/22/25 01/22/25 17:20 18:10 WBC 13.5 H RBC 4.37 Hgb 13.7 Hct 41.0 MCV 93.8 MCH 31.4 MCHC 33.4 RDW Std Deviation 55.5 H RDW Coeff of Kadi 16.2 H Plt Count 386 MPV 11.5 Immature Gran % (Auto) 0.300 Neut % (Auto) 39.9 L Lymph % (Auto) 46.6 H [place] % (Auto) 12.1 H Eos % (Auto) 0.8 Baso % (Auto) 0.3 Absolute Neuts (auto) 5.4 Absolute Lymphs (auto) 6.29 H Nucleated RBC % 0 PT 16.2 H INR 1.3 APTT 26.8 Sodium 136 Potassium 4.0 Chloride 99 Carbon Dioxide 23.2 Anion Gap 14 BUN 11 Creatinine 0.85 Estim Creat Clear Calc 54.29 Est GFR (MDRD) Non-Af 70 BUN/Creatinine Ratio 13.0 Glucose 102 H Calcium 9.7 Troponin T High Sens 8 POC Glucose 97 Radiography Diagnostic Testing: Clinical Impression(s) from Imaging Studies Brain CT 01/22/25 17:54 IMPRESSION: 1. No acute intracranial finding. 2. Findings of chronic microvascular ischemic changes and age-related changes. Reading Location: [facility] Head/Neck CTA 01/22/25 17:55 IMPRESSION: 1. No large vessel occlusion, AVM or aneurysm. 2. No stenosis of the cervical carotid arteries by NASCET criteria. Reading Location: [facility] CT minus head was independent reviewed interpreted by me. There is evidence of small vessel disease. CTA was done by radiology as no large vessel occlusion, AVM or aneurysm. There is no stenosis of the cervical carotid arteries by NASCET criteria. EKG Initial EKG: Attestation: I personally reviewed and interpreted this EKG as follows: Interpretation: Sinus Rhythm (Rate is 87. W[place] interval is 174 ms. Cures duration 72 ms. QT duration 296 ms. Bentley is normal. Computer is reading inferior infarct of undetermined age. I am in disagreement. 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 Waters plan is PCU observation with stroke workup especially since she has multiple risk factors. The hospitalist was paged. The hospitalist receiving isDr. Fernandes. Discharge Plan Dx/Rx/DC Orders Clinical Impression: Vertigo of central origin, Diplopia, Left homonymous superior quadrantanopia, Anticoagulant long-term use, Hyperlipidemia, Elevated blood pressure reading with diagnosis of hypertension, Adult BMI 34.0-34.9 kg/sq m Disposition Disposition: Acute Care Hospital [facility] NIHSS NIHSS 1a. Level of Consciousness: 0 - Alert; keenly responsive 1b. LOC Questions: 0 - Answers BOTH questions correctly 1c. LOC Commands: 0 - Performs BOTH tasks correctly 2. Best Gaze: 0 - Normal 3. Visual: 1 - Partial hemianopia 4. Facial Palsy: 0 - Normal symmetrical movements 5a. Left Arm: 0 - No drift; arm holds 90 (or 45) degrees for full 10 seconds 5b. Right Arm: 0 - No drift; arm holds 90 (or 45) degrees for full 10 seconds 6a. Left Le - No drift; leg holds 30-degree position for full 5 seconds 6b. Right Le - No drift; leg holds 30-degree position for full 5 seconds 7. Limb Ataxia: 0 - Absent 8. Sensory: 0 - Normal; no sensory loss 9. Best Language: 0 - No aphasia; normal 10. Dysarthria: 0 - Normal 11. Extinction and Inattention: 0 - No abnormality Total: 1 Stroke Questions Stroke Team Activated: Yes Reviewed Inclusion/Exclusion criteria: Yes IV Thrombolytic Administered: No (Patient is on Eliquis.) No contraindications from thrombolytic administration: No What to do if you have Problems For any increased pain, shortness of breath, bleeding, nausea or vomiting, chestpain, or any unexpected problems, contact your Primary Care Provider. Call [facility] ([phone]) or report to the closest Emergency Room. Call 911 if necessary. 01/22/252027 <Electronically signed by Alejandro Chaudhari MD> Cosigner Signature (if applicable): CC: Dr. Yenifer Gonsalez MD ~ Signed [facility] Work Phone: 1(123) 994-691704-18-2025 Radiology Diagnostic study note [facility] Imaging Services [address] [place], [place] [id number] Brain/Head without Contrast MR#: [id number] Acct: [id number] Name: ELIZABETH RODRIGEZ Rep #: [id number] : 1945 F 79 From: Te Trent MD PCP: Dr. Yenifer Gonsalez MD Status: RE G ER Study:Brain/Head without Contrast Date of Exa m: 01/12/25 Exam# [id number] Ordering Dr: Giselle Hanson DO PROCEDURE: BRAIN/HEAD WITHOUT CONTRAST 01/12/2025 REASON FOR EXAM: INJURY ON ELIQUIS TECHNIQUE: Head CT without intravenous contrast. Coronal and Sagittal reconstruction serieswere provided. One or more dose reduction techniques were used (e.g., Automated exposure control, adjustment of the mA and/or kV according to patient size, use of iterative reconstruction technique. FINDINGS: Brain: Low density in the periventricular white matter suggests mild chronic small vessel ischemic changes. CSF Spaces: Mild generalized cerebral atrophy Sinuses/Mastoids: Clear at visualized levels Bones: Unremarkable. CT/Brain/Head without Contrast IMPRESSION: CHRONIC CHANGES. NO ACUTE FINDINGS. Reading Location: [id number] CC: Dr. cUhe Hanson DO; Dr. Yenifer Gonsalez MD ~ Home Therapy Clinician: Signed [facility]04-18-2025 Telephone encounter Note* Telephone Encounter - Triny Mcghee RN - 01/12/2025 3:03 PM EDT S: Pt calling [facility] c/o head injury. B: This happened at 1400 today. A: Hand held part of shower hose fell off and hit pt on top of head, right side. No LOC. She has a 1.5inch bump on head. No bleeding , lacerations or abrasions or bruising. Mild headache. Pt takes Eliquis. R: Advised pt to go to nearest ED now, and have another adult drive. Pt states she really would rathernot. Advised her to call her [facility] PCP now. Care advice given. Pt verbalized understanding. Reason for Disposition Taking Coumadin (warfarin) or other strong blood thinner, or known bleeding disorder (e.g., thrombocytopenia) Protocols used: Head [id number] [id number] Miscellaneous Notes* Telephone Encounter - Triny Mcghee RN - 01/12/2025 3:03 PM EDT S: Pt calling [facility] c/o head injury. B: This happened at 1400 today. A: Hand held part of shower hose fell off and hit pt on top of head, right side. No LOC. She has a 1.5inch bump on head. No bleeding , lacerations or abrasions or bruising. Mild headache. Pt takes Eliquis. R: Advised pt to go to nearest ED now, and have another adult drive. Pt states she really would rathernot. Advised her to call her [facility] PCP now. Care advice given. Pt verbalized understanding. Reason for Disposition Taking Coumadin (warfarin) or other strong blood thinner, or known bleeding disorder (e.g., thrombocytopenia) Protocols used: Head [id number] documented in this [facility]12-10-2024 Instructions* Patient Instructions* Yenifer Gonsalez MD - 09/05/2024 6:05 PM EST - Take Eliquis 2.5 mg twice daily; prescription sent to pharmacy. - Take Crestor 5 mg once daily; prescription sent to pharmacy. - Take Flonase as needed for allergy symptoms. - Continue using CPAP machine every night. - Complete lab tests for kidney function, blood counts, cholesterol, A1c, magnesium, and vitamin D levels. - Get a flu shot before leaving the clinic. - Next follow-up appointment in 6 months. Screening schedule The following prevention plan is recommended: DTaP,Tdap,Td Vaccine(1 - Tdap) Never done Shingrix Vaccine(1 of 2) Never done RSV Vaccine(1 - 1-dose 75+ series) Never done Diabetic Foot Exam due on 03/11/2023 Advance Directive Discussion due on 09/27/2023 Influenza Vaccine(1) due on 05/28/2024 HbA1C due on 08/29/2024 LDL Cholesterol due on 08/30/2024 WHAT YOU CAN DO TO PREVENT FALLS Many falls can be prevented. By making some changes, you can lower your chances of falling. Four things YOU can do to prevent falls for you* and your caregiver 1. Begin a regular exercise program Exercise is one of the most important ways to lower your chances of falling. It makes you stronger and helps you feel better. Exercises that improve balance and coordination (like Rodney Chi) are the most helpful. Lack of exercise leads to weakness and increases your chances of falling. Ask your doctor or health care provider about the best type of exercise program for you. 2. Have your health care provider review your medicines Have your doctor or pharmacist review all the medicines you take, even [id number] medicines. As you get older, the way medicines work in your body can change. Some medicines, or combinations of medicines, can make you sleepy or dizzy andcan cause you to fall. 3. Have your vision checked Have your eyes checked by an eye doctor at least once a year. You may be wearing the wrong glasses or have a condition like glaucoma or cataracts that limits your vision. Poor vision can increase your chances of falling. 4. Make your home safer About half of all falls happen at home. To make your home safer: Remove things you can trip over (like papers, books, clothes, and shoes) from stairs and places where you walk. Remove small throw rugs or use double-sided tape to keep the rugs from slipping. Keep items you use often in cabinets you can reach easily without using a step stool. Have grab bars put in next to your toilet and in the tub or shower. Use non-slip mats in the bathtub and on shower floors. Improve the lighting in your home. As you get older, you need brighter lights to see well. Hang light-weight curtains or shades to reduce glare. Have handrails and lights put in on all staircases. Wear shoes both inside and outside the house. Avoid going barefoot or wearing slippers. For more information, contact: Centers for Disease Control and Prevention www.cdc.gov/injury * This information may not apply if you have certain medical conditions. documented [facility] NoteHNO ID: [id number] Author: YENIFER GONSALEZ MD Service: ? Author Type: Physician Type: Progress Notes Filed: 09/28/2024 23:54 Note Text: This note was created using Gynesonicsriter. Subjective Elizabeth Rodrigez is a 79 year old female. HISTORY Elizabeth Rodrigez is a 79 year old lady here for Medicare Annual Wellness Visit and yearly exam and follow up appointment. Elizabeth Rodrigez is a 79-year-old female with a history of atrial fibrillation, type 2 diabetes mellitus, hypercholesterolemia, and obstructive sleep apnea, presenting for a Medicare Annual Wellness Visit. Elizabeth reports a tickly cough, which she attributes to the dry air and allergies. She uses three humidifiers at home to alleviate the dryness. She also experiences nocturnal leg cramps and inquires about magnesium supplementation to aid sleep. She denies taking any medications that might contribute to low magnesium levels, such as acid blockers or diuretics. She has been taking Eliquis once daily due to cost constraints, despite the prescribed twice-daily regimen. She has enough medication to last until the end of the month. She also takes Crestor daily and requests a refill. She uses CPAP regularly and benefits from its use. For allergies, she uses Flonase as needed, currently twice daily. She reports a stable weight of 177 lbs and exercises about once a week for 20 minutes. She expresses interest in diet medication but acknowledges not always eating healthily. She experiences diarrhea a couple of times a week, lasting a day, and denies constipation. She has a broken tooth but is hesitant to have it extracted. She has difficulty hearing and finds her current hearing aids ineffective. She follows up with a neurologist but has not been seen in over a year. She has a living will and healthcare durable power of criminal attorney, with her daughter and granddaughter designated as decision-makers. PAST MEDICAL HISTORY Diagnosis Date Allergic rhinitis, cause unspecified Allergic rhinitis Carpal tunnel syndrome Depressive disorder, not elsewhere classified Disorder of bone and cartilage, unspecified Dysmetabolic syndrome X Dyspepsia and other specified disorders of function of stomach Dyspepsia Generalized anxiety disorder Anxiety, Generalized Generalized osteoarthrosis, involving hand Hemorrhage of gastrointestinal tract, unspecified Lichen sclerosus saw Dr. Jarvis Migraine without aura Obstructive sleep apnea (adult) (pediatric) uses C-PAP Other specified cardiac dysrhythmias(427.89) Panic disorder without agoraphobia Pure hypercholesterolemia Current Outpatient Medications Medication Sig phenazopyridine (PYRIDIUM) 200 mg tablet Take 1 tablet by mouth three times a day as needed. predniSONE (DELTASONE) 10 mg tablet Take 40 mg x 3 days, 20 mg x 3 days, 10 mg x 3 days. Take with food, once daily acyclovir (ZOVIRAX) 400 mg tablet Take 1 tablet by mouth two times a day. verapamil 80 mg tablet Take 1 tablet by mouth two times a day. gabapentin (NEURONTIN) 300 mg capsule Take 1 capsule by mouth three times a day. clobetasol (TEMOVATE) 0.05 % cream Apply 1 application to affected area once daily as needed. alendronate (FOSAMAX) 70 mg tablet Take 1 tablet by mouth one time a week. Take with a full glass of water, on an empty stomach; do NOT lie down for 30minutes. PARoxetine (PAXIL) 20 mg tablet Take 2 tablets by mouth every morning AND 0.5 tablets every evening. metFORMIN ER (GLUCOPHAGE XR) 500 mg 24 hr tablet Take 1 tablet by mouth two times a day before meals. or as directed rosuvastatin (CRESTOR) 10 mg tablet Take 1 tablet by mouth once daily. As directed Cholecalciferol, Vitamin D3, (VITAMIN D-3) 50 mcg (2,000 unit) cap Take 1 capsule by mouth once daily. apixaban (ELIQUIS) 5 mg tab(s) Take 1 tablet by mouth two times a day. cyanocobalamin (VITAMIN B-12) 1,000 mcg tab Take 1,000 mcg by mouth once daily. HAIR, SKIN AND NAILS, BIOTIN, ORAL Take 1 capsule by mouth once daily. albuterol HFA (PROVENTIL HFA, VENTOLIN HFA) 90 mcg/actuation inhaler INHALE 2 PUFFS BY MOUTH UP TO 4 TIMES DAILY NEEDED acetaminophen (TYLENOL EX STR ARTHRITIS PAIN ORAL) Take by mouth as needed. meclizine (ANTIVERT) 25 mg tab Take 1 tablet by mouth every 6 hours as needed (dizziness/vertigo). CPAP Initiate CPAP @ 12 cm of water with humidification. Mask (per patient preference) optional chin strap (if indicated) , filters, tubing, humidifier and lifetime supplies. fluticasone (FLONASE) 50 mcg/actuation nasal spray Use 2 Sprays in each nostril once daily. for sinus drainage and genstion pumpkin seed extract-soy germ (AZO BLADDER CONTROL) 300 mg cap Take 1-3 capsules by mouth once daily. (usually just needs 1 capsule daily) (Patient not taking: Reported on 05/19/2024) albuterol (PROVENTIL) 5 mg/mL nebu Inhale 0.5 mL as instructed one time only for 1 dose. 1 DOSE NOW - BACK OFFICE. PLACE 0.5 ML PER DROPPER AND 2.5 ML OF NORMAL (more content not included)...[facility]12-10-2024 History of Present illness Narrative* Yenifer Gonsalez MD - 09/05/2024 5:19 PM EST Images from the original note were not included. This note was created using Gynesonicsriter. Subjective Elizabeth Rodrigez is a 79 year old female. HISTORY Elizabeth Rodrigez is a 79 year old lady here for Medicare Annual Wellness Visit and yearly exam and follow up appointment. Elizabeth Rodrigez is a 79-year-old female with a history of atrial fibrillation, type 2 diabetes mellitus, hypercholesterolemia, and obstructive sleep apnea, presenting for a Medicare Annual Wellness Visit. Elizabeth reports a tickly cough, which she attributes to the dry air and allergies. She uses three humidifiers at home to alleviate the dryness. She also experiences nocturnal leg cramps and inquires about magnesium supplementation to aid sleep. She denies taking any medications that might contribute to low magnesium levels, such as acid blockers or diuretics. She has been taking Eliquis once daily due to cost constraints, despite the prescribed twice-daily regimen. She has enough medication to last until the end of the month. She also takes Crestor daily and requests a refill. She uses CPAP regularly and benefits from its use. For allergies, she uses Flonase as needed, currently twice daily. She reports a stable weight of 177 lbs and exercises about once a week for 20 minutes. She expresses interest in diet medication but acknowledges not always eating healthily. She experiences diarrheaa couple of times a week, lasting a day, and denies constipation. She has a broken tooth but is hesitant to have it extracted. She has difficulty hearing and finds her current hearing aids ineffective. She follows up with a neurologist but has not been seen in over a year. She has a living will and healthcare durable power of criminal attorney, with her daughter and granddaughter designated as decision-makers. PAST MEDICAL HISTORY Diagnosis Date Allergic rhinitis, cause unspecified Allergic rhinitis Carpal tunnel syndrome Depressive disorder, not elsewhere classified Disorder of bone and cartilage, unspecified Dysmetabolic syndrome X Dyspepsia and other specified disorders of function of stomach Dyspepsia Generalized anxiety disorder Anxiety, Generalized Generalized osteoarthrosis, involving hand Hemorrhage of gastrointestinal tract, unspecified Lichen sclerosus saw Dr. Jarvis Migraine without aura Obstructive sleep apnea (adult) (pediatric) uses C-PAP Other specified cardiac dysrhythmias(427.89) Panic disorder without agoraphobia Pure hypercholesterolemia Current Outpatient Medications Medication Sig phenazopyridine (PYRIDIUM) 200 mg tablet Take 1 tablet by mouth three times a day as needed. predniSONE (DELTASONE) 10 mg tablet Take 40 mg x 3 days, 20 mg x 3 days, 10 mg x 3 days. Take with food, once daily acyclovir (ZOVIRAX) 400 mg tablet Take 1 tablet by mouth two times a day. verapamil 80 mg tablet Take 1 tablet by mouth two times a day. gabapentin (NEURONTIN) 300 mg capsule Take 1 capsule by mouth three times a day. clobetasol (TEMOVATE) 0.05 % cream Apply 1 application to affected area once daily as needed. alendronate (FOSAMAX) 70 mg tablet Take 1 tablet by mouth one time a week. Take with a full glass of water, on an empty stomach; do NOT lie down for 30minutes. PARoxetine (PAXIL) 20 mg tablet Take 2 tablets by mouth every morning AND 0.5 tablets every evening. metFORMIN ER (GLUCOPHAGE XR) 500 mg 24 hr tablet Take 1 tablet by mouth two times a day before meals. or as directed rosuvastatin (CRESTOR) 10 mg tablet Take 1 tablet by mouth once daily. As directed Cholecalciferol, Vitamin D3, (VITAMIN D-3) 50 mcg (2,000 unit) cap Take 1 capsule by mouth once daily. apixaban (ELIQUIS) 5 mg tab(s) Take 1 tablet by mouth two times a day. cyanocobalamin (VITAMIN B-12) 1,000 mcg tab Take 1,000 mcg by mouth once daily. HAIR, SKIN AND NAILS, BIOTIN, ORAL Take 1 capsule by mouth once daily. albuterol HFA (PROVENTIL HFA, VENTOLIN HFA) 90 mcg/actuation inhaler INHALE 2 PUFFS BY MOUTH UP TO 4 TIMES DAILY NEEDED acetaminophen (TYLENOL EX STR ARTHRITIS PAIN ORAL) Take by mouth as needed. meclizine (ANTIVERT) 25 mg tab Take 1 tablet by mouth every 6 hours as needed (dizziness/vertigo). CPAP Initiate CPAP @ 12 cm of water with humidification. Mask (per patient preference) optional chin strap (if indicated) , filters, tubing, humidifier and lifetime supplies. fluticasone (FLONASE) 50 mcg/actuation nasal spray Use 2 Sprays in each nostril once daily. for sinus drainage and genstion pumpkin seed extract-soy germ (AZO BLADDER CONTROL) 300 mg cap Take 1-3 capsules by mouth once daily. (usually just needs 1 capsule daily) (Patient not taking: Reported on 05/19/2024) albuterol (PROVENTIL) 5 mg/mL nebu Inhale 0.5 mL as instructed one time only for 1 dose. 1 DOSE NOW- BACK OFFICE. PLACE 0.5 ML PER DROPPER AND 2.5 ML OF NORMAL SALINE INTO RESERVOIR. COMPOUNDED PRESCRIPTION CPAP mask COMPOUNDED PRESCRIPTION CPAP mask--Mirage FX with formal mask fitting No current facility-administered medications for this visit. ALLERGIES Allergen Reactions Epinephrine Other: See Comments Tachycardia, becomes incoherent Penicillins Rash Percocet [Oxycodone* Vomiting It makes her feel drunk Xylocaine [Lidocain* Other: See Comments tachycardia--Not really sure if had reaction to this or if was the epinephrine FAMILY HISTORY Problem Relation Age of Onset Alcohol/Drug Father Heart disease Father Colon Cancer Paternal Grandfather Colon Cancer Maternal Grandmother Arthritis Sister other (mvp) Sister other (palpitations) Mother Alcohol/Drug Brother Mental illness Brother Alcohol/Drug Sister Mental illness Sister Heart disease Sister No Known Problems Sister other (Hep C) Sister No Known Problems Sister Mental illness Brother Social History Tobacco Use Smoking status: Never Smokeless tobacco: Never Vaping Use Vaping status: Never Used Substance Use Topics Alcohol use: Yes Comment: She drinks approximately 1 sis per month Drug use: No Review of Systems Objective BP 128/72 Pulse 96 Temp 37.2 C (98.9 F) Resp 16 Ht 153.5 cm (5' 0.43) Wt 82 kg (180 lb 12.4 oz) SpO2 96% BMI 34.80 kg/m Last 5 Encounter Wt Readings: Date: Wt: 09/05/2024 82 kg (180 lb 12.4 oz) 07/13/2024 81.4 kg (179 lb 7.3 oz) 02/28/2024 80.3 kg (177 lb) 08/30/2023 80.3 kg (177 lb) 02/26/2023 78 kg (172 lb) No waist measurement recorded Estimated body mass index is 34.8 kg/m as calculated from the following: Height as of this encounter: 153.5 cm (5' 0.43). Weight as of this encounter: 82 kg (180 lb 12.4 oz). Last 5 Encounter BP Readings: Date: BP: 09/05/2024 128/72 07/13/2024 131/82 05/19/2024 155/85 02/28/2024 112/60 08/30/2023 118/68 Physical Exam Vitals reviewed. Constitutional: Appearance: Normal appearance. She is well-developed. She is obese. HENT: Head: Normocephalic and atraumatic. Right Ear: Tympanic membrane, ear canal and external ear normal. Left Ear: Tympanic membrane, ear canal and external ear normal. Nose: Nose normal. Mouth/Throat: Mouth: Mucous membranes are moist. Eyes: Conjunctiva/sclera: Conjunctivae normal. Pupils: Pupils are equal, round, and reactive to light. Neck: Thyroid: No thyromegaly. Vascular: No carotid bruit. Cardiovascular: Rate and Rhythm: Normal rate and regular rhythm. Pulses: Normal pulses. Heart sounds: Normal heart sounds. No murmur heard. No friction rub. No gallop. Pulmonary: Effort: Pulmonary effort is normal. Breath sounds: Normal breath sounds. Abdominal: General: Bowel sounds are normal. There is no distension. Palpations: Abdomen is soft. There is no mass. Tenderness: There is no abdominal tenderness. Musculoskeletal: General: No deformity. Normal range of motion. Right lower leg: No edema. Left lower leg: No edema. Lymphadenopathy: Cervical: No cervical adenopathy. Skin: General: Skin is warm and dry. Coloration: Skin is not jaundiced or pale. Findings: No rash. Neurological: General: No focal deficit present. Mental Status: She is alert and oriented to person, place, and time. Cranial Nerves: No cranial nerve deficit. Sensory: No sensory deficit. Motor: No abnormal muscle tone. Coordination: Coordination normal. Deep Tendon Reflexes: Reflexes normal. Psychiatric: Attention and Perception: Attention and perception normal. Mood and Affect: Mood and affect normal. Speech: Speech normal. Behavior: Behavior normal. Thought Content: Thought content normal. Cognition and Memory: Cognition and memory normal. Judgment: Judgment normal. Last labs: Latest Ref Rng 08/30/2023 02/28/2024 Protein, Total 6.3 - 8.0 g/dL 7.4 6.9 Albumin 3.9 - 4.9 g/dL 4.2 4.2 Calcium 8.5 - 10.2 mg/dL 10.1 9.8 Bilirubin, Total 0.2 - 1.3 mg/dL 0.2 0.2 Alkaline Phosphatase 34 - 123 U/L 63 69 AST 13 - 35 U/L 22 32 ALT 7 - 38 U/L 19 25 Glucose 74 - 99 mg/dL 124 (H) 211 (H) BUN 7 - 21 mg/dL 10 12 Creatinine 0.58 - 0.96 mg/dL 0.81 0.82 Sodium 136 - 144 mmol/L 137 140 Potassium 3.7 - 5.1 mmol/L 4.4 4.5 Chloride 97 - 105 mmol/L 101 101 CO2 22 - 30 mmol/L 23 25 Anion Gap 9 - 18 mmol/L 13 14 eGFR >=60 mL/min/1.73m 75 74 WBC 3.70 - 11.00 k/uL 11.68 (H) 9.89 RBC 3.90 - 5.20 m/uL 4.53 4.73 Hemoglobin 11.5 - 15.5 g/dL 14.2 14.0 Hematocrit 36.0 - 46.0 % 45.0 44.2 MCV 80.0 - 100.0 fL 99.3 93.4 MCH 26.0 - 34.0 pg 31.3 29.6 MCHC 30.5 - 36.0 g/dL 31.6 31.7 RDW-CV 11.5 - 15.0 % 15.8 (H) 16.7 (H) Platelet Count 150 - 400 k/uL 388 410 (H) MPV 9.0 - 12.7 fL 11.4 10.6 Absolute nRBC <0.01 k/uL <0.01 <0.01 Cholesterol, Total <200 mg/dL 141 Triglyceride <150 mg/dL 161 (H) HDL Cholesterol >39 mg/dL 43 Non HDL Cholesterol <130 mg/dL 98 Fasting Time hrs 12 VLDL Cholesterol <30 mg/dL 32 (H) TC:HDL Ratio <5.10 3.28 LDL Cholesterol <100 mg/dL 66 LDL:HDL Ratio <2.54 1.53 Creatinine, Ur Random (UCRR) 20.0 - 300.0 mg/dL 127.4 167.2 Albumin, Urine Random mg/L 54.7 63.7 Albumin/Creat Ratio <30 mg/g 43 (H) 38 (H) Hemoglobin A1C 4.3 - 5.6 % 6.5 (H) 7.0 (H) Estimated Average Glucose mg/dL 140 154 Vitamin D 25 Hydroxy 31.0 - 80.0 ng/mL 50.4 Vitamin B12 232 - 1,245 pg/mL 854 Legend: (H) High Assessment and Plan--see below Elizabeth Rodrigez is a 79 year old female here for a Medicare wellness visit. Medicare Health Risk Assessment General Health Very good Exercise: Minutes/Day 20 min Exercise: Days/Week 1 day Alcohol: Daily Use Monthly or less Alcohol: Drinks/Day 1 or 2 Alcohol: 6 or more drinks Q3: How often do you have six or more drinks on one occasion?: -- (been 40 years) Feel off balance Yes Concerns: Teeth/Dentures Yes--has tooth that broke. Concerns: Sexual function No Troubled by feelings Irritable--meds still effective Frequency: Eating healthy diet Nearly every day ADLs requiring help None of the above Safety precautions in home/vehicle Yes Smoke, vape, chews tobacco No Difficulty hearing Yes--cheap hearing aids not effective. Difficulty seeing No Current Providers Specialists: I have reviewed specialist-related care of the patient in the medical record. Outside specialists seen: Freya (Ortho) Medical/Family history review Reviewed and updated problem list, medical/surgical/family/social history, medications, and allergies. Opioid use review Opioid Medications (last 90 days) No data to display Anxiety/Depression screening PHQ-2 Score: 2 (Lower risk for depression) Recommendation: medication management Cognitive screening Mini Cog Score: 5 Cognitive screening reviewed and No further action needed (score 3-5). Functional Observation Was the patient's Timed Up & Go test unsteady or >= 12 seconds? No Advance Care Planning Surrogate decision maker and/or advance care plan documented Measurements BP 128/72 Pulse 96 Temp 37.2 C (98.9 F) Resp 16 Ht 153.5 cm (5' 0.43) Wt 82 kg (180 lb 12.4 oz) SpO2 96% BMI 34.80 kg/m Vision Screening: Follows with optometry/ophthalmology Assessment/Plan Medicare annual wellness visit, subsequent (Z00.00) - Counseled on healthy diet and regular exercise - Fall avoidance information provided - Personalized prevention plan provided # Medicare annual wellness visit, subsequent (Z00.00) - Completed Medicare annual wellness visit. - Discussed health maintenance, including diet, exercise, and fall prevention. - Reviewed advanced directives; patient has a living will and healthcare durable power of criminal attorney. - Discussed the importance of regular follow-ups and maintaining current health status. # Controlled type 2 diabetes mellitus without complication, without long-term current use of insulin (HCC) (E11.9) - Ordered HbA1c to monitor glycemic control. - Continue current management with metformin. # Nocturnal leg cramps (G47.62) - Occasional nocturnal leg cramps reported. - Ordered serum magnesium level to assess for deficiency. # Mixed hyperlipidemia (E78.2) - Clinically stable on rosuvastatin. - Refilled rosuvastatin with three refills to last the year. - Ordered lipid panel to monitor cholesterol levels. # Osteopenia, unspecified location (M85.80) - Ordered vitamin D level to assess for deficiency. - Discussed the importance of calcium and vitamin D supplementation. # Irritable bowel syndrome with diarrhea (K58.0) - Reports diarrhea a couple of times a week, lasting for a day. - No specific dietary triggers identified. - Continue current management; use Imodium AD as needed. # Encounter for immunization (Z23) - Administered influenza vaccine. 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 - Patient has been taking Eliquis once daily due to cost issues; advised to split the dose to maintain therapeutic levels. - Discussed the elimination of the Medicare donut hole next year, which should alleviate cost concerns. # Encounter for long-term current use of medication (Z79.899) - Reviewed and updated medication list. - Continue current medications: metformin, Paxil, gabapentin, rosuvastatin. - Discontinued prednisone and Azo. # Bilateral hearing loss, unspecified hearing loss type (H91.93) - Reports difficulty hearing; current hearing aids are not effective. - Discussed the option of investing in higher-quality hearing aids. MD Yenifer Vasquez MD documented [facility] Tele[facility] encounter Note * Telephone Encounter - Yuliya Aguilera LPN - 07/25/2024 12:54 PM EDT Emily from [employer] calling she is faxing form for CPAP supplies for the patient. Asked to have patient call the office to tell us what is needed, may need appt also. She said patient had phoned her June [address] request[address] [facility]10-29-2024 Miscellaneous Notes* Telephone Encounter - Yuliya Aguilera LPN - 07/25/2024 12:54 PM EDT Emily from [employer] calling she is faxing form for CPAP supplies for the patient. Asked to have patient call the office to tell us what is needed, may need appt also. She said patient had phoned her June 27 for the request. documented in this encounterSt[facility] Telephone encounter Note * Telephone Encounter - Candis Corona MA - 07/16/2024 9:24 AM EDT Patient notified of results, verbalized understanding of instructions given. Candis Corona MA [facility]10-[facility]24 Miscellaneous Notes* Telephone Encounter - Candis Corona MA - 07/16/2024 9:24 AM EDT Patient notified of results, verbalized understanding of instructions given. Candis Corona MA * Telephone Encounter - Candis Corona MA - 07/16/2024 9:23 AM EDT ----- Message from Juan David Díaz APRN.CNP sent at 07/16/2024 8:16 AM EDT ----- Please advise patient: The urine culture grew bacteria that should be eliminated by the antibiotic you were prescribed. Take as directed. Follow instructions given by provider at visit, f/u with PCP if symptoms persist or worsen. Juan David Díaz APRN.CNP documented in this encounterSt. [facility] Telephone encounter Note * Telephone Encounter - Candis Corona MA - 07/16/2024 9:23 AM EDT ----- Message from Juan David Díaz APRN.CNP sent at 07/16/2024 8:16 AM EDT ----- Please advise patient: The urine culture grew bacteria that should be eliminated by the antibiotic you were prescribed. Take as directed. Follow instructions given by provider at visit, f/u with PCP if symptoms persist or worsen. Juan David Díaz APRN.BEER CO[employer]ER [facility]10-17-2024 NoteHNO ID: [id number] Author: RYANNE GARCIA APRN.CNP Service: ? Author Type: Nurse Practitioner Type: Progress Notes Filed: 07/14/2024 09:14 Note Text: This note was created using [employer]. Subjective Elizabeth Rodrigez is a 79 year old female. Relevant PMH and allergies reviewed: UTIs, diabetes Pt is a 79 year old female who presents today with pressure and frequency and odor x6 months. Pt states she gets up multiple times during the night to go to the bathroom and often times does not make it to the bathroom. Pt states she frequently has UTIs and stays hydrated to keep the symptoms from worsening. She is having pain and burning with urination. Pt states she is having back pain but has a history of arthritis and is not sure if that is the cause of her back pain. Pt denies vaginal redness, vaginal discharge, rash, changes in soaps, changes in detergents, fever, chills, flank pain, nausea, vomiting, blood in urine. Pt is not sexual active. The history is provided by the patient. No preschool teacher's assistant was used. UTI This is a recurrent problem. The current episode started more than 1 week ago. The problem occurs every urination. The problem has not changed since onset.The quality of the pain is described as burning. The pain is mild. There has been no fever. She is Not sexually active. There is No history of pyelonephritis. Associated symptoms include frequency and urgency. Pertinent negatives include no chills, no nausea, no vomiting, no discharge, no hematuria, no hesitancy and no flank pain. She has tried nothing for the symptoms. Her past medical history is significant for recurrent UTIs. Her past medical history does not include kidney stones or urinary stasis. PAST MEDICAL HISTORY Diagnosis Date Allergic rhinitis, cause unspecified Allergic rhinitis Carpal tunnel syndrome Depressive disorder, not elsewhere classified Disorder of bone and cartilage, unspecified Dysmetabolic syndrome X Dyspepsia and other specified disorders of function of stomach Dyspepsia Generalized anxiety disorder Anxiety, Generalized Generalized osteoarthrosis, involving hand Hemorrhage of gastrointestinal tract, unspecified Lichen sclerosus saw Dr. Jarvis Migraine without aura Obstructive sleep apnea (adult) (pediatric) uses C-PAP Other specified cardiac dysrhythmias(427.89) Panic disorder without agoraphobia Pure hypercholesterolemia PAST SURGICAL HISTORY Procedure Laterality Date BIOPSY BREAST OPEN INCISIONAL Bilateral Bx of breast, incisional COLONOSCOPY FLX DX W/COLLJ SPEC WHEN PFRMD 03/24/06 SPLENECTOMY TOTAL SEPARATE PROCEDURE 05/2018 Splenectomy TOTAL ABDOMINAL HYSTERECT W/WO RMVL TUBE OVARY Hysterectomy, FIGUEROA ALLERGIES Epinephrine, Penicillins, Percocet [Oxycodone-Acetaminophen], and Xylocaine [Lidocaine Hcl (Local Anesth.)] MEDICATIONS predniSONE (DELTASONE) 10 mg tablet Take 40 mg x 3 days, 20 mg x 3 days, 10 mg x 3 days. Take with food, once daily acyclovir (ZOVIRAX) 400 mg tablet Take 1 tablet by mouth two times a day. verapamil 80 mg tablet Take 1 tablet by mouth two times a day. gabapentin (NEURONTIN) 300 mg capsule Take 1 capsule by mouth three times a day. clobetasol (TEMOVATE) 0.05 % cream Apply 1 application to affected area once daily as needed. alendronate (FOSAMAX) 70 mg tablet Take 1 tablet by mouth one time a week. Take with a full glass of water, on an empty stomach; do NOT lie down for 30minutes. PARoxetine (PAXIL) 20 mg tablet Take 2 tablets by mouth every morning AND 0.5 tablets every evening. metFORMIN ER (GLUCOPHAGE XR) 500 mg 24 hr tablet Take 1 tablet by mouth two times a day before meals. or as directed rosuvastatin (CRESTOR) 10 mg tablet Take 1 tablet by mouth once daily. As directed Cholecalciferol, Vitamin D3, (VITAMIN D-3) 50 mcg (2,000 unit) cap Take 1 capsule by mouth once daily. apixaban (ELIQUIS) 5 mg tab(s) Take 1 tablet by mouth two times a day. cyanocobalamin (VITAMIN B-12) 1,000 mcg tab Take 1,000 mcg by mouth once daily. HAIR, SKIN AND NAILS, BIOTIN, ORAL Take 1 capsule by mouth once daily. albuterol HFA (PROVENTIL HFA, VENTOLIN HFA) 90 mcg/actuation inhaler INHALE 2 PUFFS BY MOUTH UP TO 4 TIMES DAILY NEEDED acetaminophen (TYLENOL EX STR ARTHRITIS PAIN ORAL) Take by mouth as needed. meclizine (ANTIVERT) 25 mg tab Take 1 tablet by mouth every 6 hours as needed (dizziness/vertigo). CPAP Initiate CPAP @ 12 cm of water with humidification. Mask (per patient preference) optional chin strap (if indicated) , filters, tubing, humidifier and lifetime supplies. fluticasone (FLONASE) 50 mcg/actuation nasal spray Use 2 Sprays in each nostril once daily. for sinus drainage and genstion pumpkin seed extract-soy germ (AZO BLADDER CONTROL) 300 mg cap Take 1-3 capsules by mouth once daily. (usually just needs 1 capsule daily) (Patient not taking: Reported on 05/19/2024) albuterol (PROVENTIL) 5 mg/mL nebu Inhale 0. (more content not included)... [facility]10-17-2024 History of Present illness Narrative* Ryanne Garcia, PAULA.BEER COOLER - 07/13/2024 7:01 PM EDT This note was created using [employer]. Subjective Elizabeth Rodrigez is a 79 year old female. Relevant PMH and allergies reviewed: UTIs, diabetes Pt is a 79 year old female who presents today with pressure and frequency and odor x6 months. Pt states she gets up multiple times during the night to go to the bathroom and often times does not makeit to the bathroom. Pt states she frequently has UTIs and stays hydrated to keep the symptoms from worsening. She is having pain and burning with urination. Pt states she is having back pain but has a history of arthritis and is not sure if that is the cause of her back pain. Pt denies vaginal redness, vaginal discharge, rash, changes in soaps, changes in detergents, fever, chills, flank pain, nausea, vomiting, blood in urine. Pt is not sexual active. The history is provided by the patient. No preschool teacher's assistant was used. UTI This is a recurrent problem. The current episode started more than 1 week ago. The problem occurs every urination. The problem has not changed since onset.The quality of the pain is described as burning. The pain is mild. There has been no fever. She is Not sexually active. There is No history of pyelonephritis. Associated symptoms include frequency and urgency. Pertinent negatives include no chills, no nausea, no vomiting, no discharge, no hematuria, no hesitancy and no flank pain. She has tried nothing for the symptoms. Her past medical history is significant for recurrent UTIs. Her past medical history does not include kidney stones or urinary stasis. PAST MEDICAL HISTORY Diagnosis Date Allergic rhinitis, cause unspecified Allergic rhinitis Carpal tunnel syndrome Depressive disorder, not elsewhere classified Disorder of bone and cartilage, unspecified Dysmetabolic syndrome X Dyspepsia and other specified disorders of function of stomach Dyspepsia Generalized anxiety disorder Anxiety, Generalized Generalized osteoarthrosis, involving hand Hemorrhage of gastrointestinal tract, unspecified Lichen sclerosus saw Dr. Jarvis Migraine without aura Obstructive sleep apnea (adult) (pediatric) uses C-PAP Other specified cardiac dysrhythmias(427.89) Panic disorder without agoraphobia Pure hypercholesterolemia PAST SURGICAL HISTORY Procedure Laterality Date BIOPSY BREAST OPEN INCISIONAL Bilateral Bx of breast, incisional COLONOSCOPY FLX DX W/COLLJ SPEC WHEN PFRMD 03/24/06 SPLENECTOMY TOTAL SEPARATE PROCEDURE 05/2018 Splenectomy TOTAL ABDOMINAL HYSTERECT W/WO RMVL TUBE OVARY Hysterectomy, FIGUEROA ALLERGIES Epinephrine, Penicillins, Percocet [Oxycodone-Acetaminophen], and Xylocaine [Lidocaine Hcl (Local Anesth.)] MEDICATIONS predniSONE (DELTASONE) 10 mg tablet Take 40 mg x 3 days, 20 mg x 3 days, 10 mg x 3 days. Take with food, once daily acyclovir (ZOVIRAX) 400 mg tablet Take 1 tablet by mouth two times a day. verapamil 80 mg tablet Take 1 tablet by mouth two times a day. gabapentin (NEURONTIN) 300 mg capsule Take 1 capsule by mouth three times a day. clobetasol (TEMOVATE) 0.05 % cream Apply 1 application to affected area once daily as needed. alendronate (FOSAMAX) 70 mg tablet Take 1 tablet by mouth one time a week. Take with a full glass of water, on an empty stomach; do NOT lie down for 30minutes. PARoxetine (PAXIL) 20 mg tablet Take 2 tablets by mouth every morning AND 0.5 tablets every evening. metFORMIN ER (GLUCOPHAGE XR) 500 mg 24 hr tablet Take 1 tablet by mouth two times a day before meals. or as directed rosuvastatin (CRESTOR) 10 mg tablet Take 1 tablet by mouth once daily. As directed Cholecalciferol, Vitamin D3, (VITAMIN D-3) 50 mcg (2,000 unit) cap Take 1 capsule by mouth once daily. apixaban (ELIQUIS) 5 mg tab(s) Take 1 tablet by mouth two times a day. cyanocobalamin (VITAMIN B-12) 1,000 mcg tab Take 1,000 mcg by mouth once daily. HAIR, SKIN AND NAILS, BIOTIN, ORAL Take 1 capsule by mouth once daily. albuterol HFA (PROVENTIL HFA, VENTOLIN HFA) 90 mcg/actuation inhaler INHALE 2 PUFFS BY MOUTH UP TO 4 TIMES DAILY NEEDED acetaminophen (TYLENOL EX STR ARTHRITIS PAIN ORAL) Take by mouth as needed. meclizine (ANTIVERT) 25 mg tab Take 1 tablet by mouth every 6 hours as needed (dizziness/vertigo). CPAP Initiate CPAP @ 12 cm of water with humidification. Mask (per patient preference) optional chin strap (if indicated) , filters, tubing, humidifier and lifetime supplies. fluticasone (FLONASE) 50 mcg/actuation nasal spray Use 2 Sprays in each nostril once daily. for sinus drainage and genstion pumpkin seed extract-soy germ (AZO BLADDER CONTROL) 300 mg cap Take 1-3 capsules by mouth once daily. (usually just needs 1 capsule daily) (Patient not taking: Reported on 05/19/2024) albuterol (PROVENTIL) 5 mg/mL nebu Inhale 0.5 mL as instructed one time only for 1 dose. 1 DOSE NOW- BACK OFFICE. PLACE 0.5 ML PER DROPPER AND 2.5 ML OF NORMAL SALINE INTO RESERVOIR. COMPOUNDED PRESCRIPTION CPAP mask COMPOUNDED PRESCRIPTION CPAP mask--Mirage FX with formal mask fitting FAMILY HISTORY Problem Relation Age of Onset Alcohol/Drug Father Heart disease Father Colon Cancer Paternal Grandfather Colon Cancer Maternal Grandmother Arthritis Sister other (mvp) Sister other (palpitations) Mother Alcohol/Drug Brother Mental illness Brother Alcohol/Drug Sister Mental illness Sister Heart disease Sister No Known Problems Sister other (Hep C) Sister No Known Problems Sister Mental illness Brother Social History Tobacco Use Smoking status: Never Smokeless tobacco: Never Vaping Use Vaping status: Never Used Substance Use Topics Alcohol use: Yes Comment: She drinks approximately 1 sis per month Drug use: No Review of Systems Constitutional: Negative for activity change, appetite change, chills, fatigue and fever. HENT: Negative for ear discharge, ear pain, rhinorrhea, sinus pressure, sinus pain and sore throat. Eyes: Negative for discharge and itching. Respiratory: Negative for cough, shortness of breath and wheezing. Cardiovascular: Negative for chest pain and palpitations. Gastrointestinal: Negative for abdominal pain, constipation, diarrhea, nausea and vomiting. Genitourinary: Positive for dysuria, frequency and urgency. Negative for difficulty urinating, flank pain, hematuria, hesitancy and vaginal discharge. Musculoskeletal: Positive for back pain. Negative for neck pain and neck stiffness. Skin: Negative for rash. Allergic/Immunologic: Negative for environmental allergies and food allergies. Neurological: Negative for dizziness and headaches. Objective BP 131/82 Pulse 104 Temp 36.8 C (98.3 F) Resp 18 Wt 81.4 kg (179 lb 7.3 oz) SpO2 96% BMI 34.55 kg/m Physical Exam Vitals and nursing note reviewed. Constitutional: General: She is not in acute distress. Appearance: Normal appearance. She is not ill-appearing. HENT: Head: Normocephalic and atraumatic. Eyes: General: Right eye: No discharge. Left eye: No discharge. Pupils: Pupils are equal, round, and reactive to light. Cardiovascular: Rate and Rhythm: Normal rate and regular rhythm. Pulmonary: Effort: Pulmonary effort is normal. No respiratory distress. Breath sounds: Normal breath sounds. No wheezing or rhonchi. Abdominal: Palpations: Abdomen is soft. Tenderness: There is abdominal tenderness. There is no right CVA tenderness, left CVA tenderness orrebound. Comments: Tenderness to palpation in all four quadrants -no masses -no rebound tenderness -negative McBurneys sign Musculoskeletal: Cervical back: Normal range of motion and neck supple. Skin: General: Skin is warm. Neurological: Mental Status: She is alert. Assessment and Plan ASSESSMENT/PLAN: 1. Urinary frequency - ICD9: 788.41, ICD10: R35.0 -pressure, frequency and odor x6 months -negative for CVA tenderness bilaterally, abdominal tenderness in all 4 quadrants - UA positive for jorge esterase - Send urine for culture - Begin treatment with Keflex - Patient education for prevention given - UA DIP, URINE (POC) -positive for leukocytes - URINE CULTURE PATIENT URINE DIP ONLY WITH SMALL LEUKS. WITH SYMPTOM DURATION OF 6 MONTHS, DISCUSSED OTHER PATHOLOGY. DECLINES POTENTIAL FOR STI. DECLINES SHE IS SEXUALLY ACTIVE. I KNOW THIS IS A UTI WILL START ON KEFLX, BUT IF URINE CULTURE NEGATIVE PLEASE ADVISE AND ENCOURAGE PATIENT TO FOLLOW UPWITH PCP FOR ADDITIONAL WORK UP OF SX Rahel Caba Student TEACHING PROVIDER (Physician/PA/COMPUTER SUPPORT SPECIALIST) NOTE OF PERSONAL INVOLVEMENT IN CARE: I have personally seen and examined the patient and performed the medical decision-making components. I have reviewed the Advanced Practice Registered Nurse (COMPUTER SUPPORT SPECIALIST) Student's documentation and verified the findings in the note as written. Any additions or changes are noted in bold/italics. Signature: Ryanne Garcia Date: 07/14/2024 Time: 9:13 AM documented in this encounterSt[facility] History of Present illness Narrative* Kit Mckenna, RT(R) - 05/19/2024 8:50 AM EDT Radiology Service Progress Note PATIENT NAME: Elizabeth Rodrigez DATE OF SERVICE: May 19, 2024 TIME: 8:44 AM PATIENT IDENTITY VERIFICATION COMPLETED USING TWO (2) IDENTIFIERS: Name and Date of confirmedby patient verbally. FALL SCREENING: Has the patient had 2 falls in the last year or 1 fall with injury or currently using an Ambulatory Assistive Device (Walker, Cane, Wheelchair, Crutches, etc.)? No PATIENT GENDER DATA: Female. status: : No status: NO. PATIENT RELEVANT IMPLANT DATA REVIEWED: Not Applicable PATIENT PRESENTS WITH AN IMPLANTABLE OR ATTACHED DEPARTURE CLERK: No RADIOLOGY DEPARTMENT: General X-ray: Exam(s) Completed: Upper Extremity X- Ray(s): Wrist, right PERIPHERAL IV DATA: Not applicable SIGNED BY: RT Rogerio(R) May 19, 2024 8:44 AM documented in this encounterSt. [facility] [facility] Miscellaneous Notes* Result Encounter Note - Christa Cabrera APRN.CNS - 05/19/2024 8:50 AM EDT No acute findings, degenerative disease of the wrist documented in this encounterSt. [facility] [facility]24 NoteHNO ID: [id number] Author: KIT MCKENNA RT(R) Service: Radiology Author Type: Technologist Type: Progress Notes Filed: 05/19/2024 08:53 Note Text: Radiology Service Progress Note PATIENT NAME: Elizabeth Rodrigez DATE OF SERVICE: May 19, 2024 TIME: 8:44 AM PATIENT IDENTITY VERIFICATION COMPLETED USING TWO (2) IDENTIFIERS: Name and Date of confirmed by patient verbally. FALL SCREENING: Has the patient had 2 falls in the last year or 1 fall with injury or currently using an Ambulatory Assistive Device (Walker, Cane, Wheelchair, Crutches, etc.)? No PATIENT GENDER DATA: Female. status: : No status: NO. PATIENT RELEVANT IMPLANT DATA REVIEWED: Not Applicable PATIENT PRESENTS WITH AN IMPLANTABLE OR ATTACHED DEPARTURE CLERK: No RADIOLOGY DEPARTMENT: General X-ray: Exam(s) Completed: Upper Extremity X-Ray(s): Wrist, right PERIPHERAL IV DATA: Not applicable SIGNED BY: RT Rogerio(R) May 19, 2024 8:44 [facility]08-23-2024 Progress note* Result Encounter Note - Christa Cabrera APRN.CNS - 05/19/2024 8:50 AM EDT No acute findings, degenerative disease of the wrist [facility]08-23-[facility] Instructions* Patient Instructions* Christa Cabrera APRN.CNS - 05/19/2024 8:36 AM EDT Take prednisone once daily in the morning, take with food Check your blood sugars daily for the next few days for taking prednisone. If running greater than 250 call in and speak with the nurse to let us know so we can make adjustments to your medications. [phone]. Recommend rest and elevate your right wrist. Apply ice for 15 to 20 minutes periodically throughout the day. Try using an Anshul wrap or a wrist brace to help control pain in your wrist As pain recedes, begin normal activities slowly as tolerated. Call if symptoms persist. documented in this encounterSt. [facility] [place] [facility] History of Present illness Narrative* Christa Cabrera APRN.CNS - 05/19/2024 8:00 AM EDT SUBJECTIVE: Diabetic Foot Exam due on 03/11/2023 Advance Directive Discussion due on 09/27/2023 Covid-19 Vaccine( season) due on 12/30/2023 SILAS Rodrigez is a 78 year old female.Past medical history significant for ACTIVE PROBLEM LIST Disorder of Bone and Cartilage Allergic Rhinitis, Cause Unspecified Generalized Anxiety Disorder Recurrent Major Depressive Disorder, in Partial Remission ([facility]) Pure Hypercholesterolemia Generalized Osteoarthrosis, Involving Hand Other Specified Cardiac Dysrhythmias(427.89) Panic Disorder Without Agoraphobia Migraine Without Aura, Without Mention of Intractable Migraine Without Mention of Status Migrainosus Ascending Aortic Aneurysm ([facility]) Elisha On Cpap Non Morbid Obesity Due to Excess Calories Primary Osteoarthritis of Both Knees Chronic Pain of Left Knee Psvt (Paroxysmal Supraventricular Tachycardia) ([facility]) Lichen Sclerosus Hearing Difficulty of Both Ears Controlled Type 2 Diabetes Mellitus Without Complication, Without Long-Term Current Use of Insulin ([facility]) Chronic Pain of Right Knee Obesity, Class I, Bmi 30-34.9 Compression Fracture of L1 Lumbar Vertebra ([facility]) Cerebrovascular Accident (Cva) ([facility]) Osteopenia Paf (Paroxysmal Atrial Fibrillation) ([facility]) She called the office this morning with report of wrist injury now with pain and swelling. She presents today with report of pulling hard on her freezer handle yesterday. Did not initially hurt but awoke this morning with acute pain, moderately severe in right wrist, most painful in the right radial region. Increased with movement. She has decreased range of motion due to pain. She notesan abnormal sensation in the palm of her hand but no numbness or tingling. No arm pain. Prior history of carpal tunnel surgery right wrist. Notes tried to use brace that she had at home but hurt too much. She is right handed. Notes tylenol and icing has helped the pain. Taking Eliquis so avoiding NSAIDs. Prior intolerance of opiates, made her aggravated. Hemoglobin A1C (%) Date Value 02/28/2024 7.0 06/09/2021 7.1 Review of Systems Constitutional: Negative. Endocrine: Negative. Musculoskeletal: Positive for arthralgias. Objective BP 155/85 Pulse 85 Resp 16 Physical Exam Vitals and nursing note reviewed. HENT: Head: Normocephalic and atraumatic. Right Ear: Hearing normal. Left Ear: Hearing normal. Eyes: Conjunctiva/sclera: Conjunctivae normal. Cardiovascular: Rate and Rhythm: Normal rate. Pulmonary: Effort: Pulmonary effort is normal. Breath sounds: Normal breath sounds. Musculoskeletal: Right wrist: Tenderness present. No crepitus. Decreased range of motion. Normal pulse. Right hand: Tenderness present. Normal range of motion. Normal capillary refill. Normal pulse. Lymphadenopathy: Cervical: No cervical adenopathy. Skin: General: Skin is warm and dry. Neurological: Mental Status: She is alert. ALLERGIES Allergen Reactions Epinephrine Other: See Comments Tachycardia, becomes incoherent Penicillins Rash Percocet [Oxycodone* Vomiting It makes her feel drunk Xylocaine [Lidocain* Other: See Comments tachycardia--Not really sure if had reaction to this or if was the epinephrine acyclovir (ZOVIRAX) 400 mg tablet Take 1 tablet by mouth two times a day. verapamil 80 mg tablet Take 1 tablet by mouth two times a day. gabapentin (NEURONTIN) 300 mg capsule Take 1 capsule by mouth three times a day. clobetasol (TEMOVATE) 0.05 % cream Apply 1 application to affected area once daily as needed. alendronate (FOSAMAX) 70 mg tablet Take 1 tablet by mouth one time a week. Take with a full glass of water, on an empty stomach; do NOT lie down for 30minutes. PARoxetine (PAXIL) 20 mg tablet Take 2 tablets by mouth every morning AND 0.5 tablets every evening. metFORMIN ER (GLUCOPHAGE XR) 500 mg 24 hr tablet Take 1 tablet by mouth two times a day before meals. or as directed rosuvastatin (CRESTOR) 10 mg tablet Take 1 tablet by mouth once daily. As directed Cholecalciferol, Vitamin D3, (VITAMIN D-3) 50 mcg (2,000 unit) cap Take 1 capsule by mouth once daily. apixaban (ELIQUIS) 5 mg tab(s) Take 1 tablet by mouth two times a day. cyanocobalamin (VITAMIN B-12) 1,000 mcg tab Take 1,000 mcg by mouth once daily. HAIR, SKIN AND NAILS, BIOTIN, ORAL Take 1 capsule by mouth once daily. albuterol HFA (PROVENTIL HFA, VENTOLIN HFA) 90 mcg/actuation inhaler INHALE 2 PUFFS BY MOUTH UP TO 4 TIMES DAILY NEEDED acetaminophen (TYLENOL EX STR ARTHRITIS PAIN ORAL) Take by mouth as needed. meclizine (ANTIVERT) 25 mg tab Take 1 tablet by mouth every 6 hours as needed (dizziness/vertigo). CPAP Initiate CPAP @ 12 cm of water with humidification. Mask (per patient preference) optional chin strap (if indicated) , filters, tubing, humidifier and lifetime supplies. fluticasone (FLONASE) 50 mcg/actuation nasal spray Use 2 Sprays in each nostril once daily. for sinus drainage and genstion albuterol (PROVENTIL) 5 mg/mL nebu Inhale 0.5 mL as instructed one time only for 1 dose. 1 DOSE NOW- BACK OFFICE. PLACE 0.5 ML PER DROPPER AND 2.5 ML OF NORMAL SALINE INTO RESERVOIR. COMPOUNDED PRESCRIPTION CPAP mask COMPOUNDED PRESCRIPTION CPAP mask--Mirage FX with formal mask fitting predniSONE (DELTASONE) 10 mg tablet Take 40 mg x 3 days, 20 mg x 3 days, 10 mg x 3 days. Take with food, once daily pumpkin seed extract-soy germ (AZO BLADDER CONTROL) 300 mg cap Take 1-3 capsules by mouth once daily. (usually just needs 1 capsule daily) (Patient not taking: Reported on 05/19/2024) PAST MEDICAL HISTORY No date: Allergic rhinitis, cause unspecified Comment: Allergic rhinitis No date: Carpal tunnel syndrome No date: Depressive disorder, not elsewhere classified No date: Disorder of bone and cartilage, unspecified No date: Dysmetabolic syndrome X No date: Dyspepsia and other specified disorders of function of stomach Comment: Dyspepsia No date: Generalized anxiety disorder Comment: Anxiety, Generalized No date: Generalized osteoarthrosis, involving hand No date: Hemorrhage of gastrointestinal tract, unspecified No date: Lichen sclerosus Comment: saw Dr. Jarvis No date: Migraine without aura No date: Obstructive sleep apnea (adult) (pediatric) Comment: uses C-PAP No date: Other specified cardiac dysrhythmias(427.89) No date: Panic disorder without agoraphobia No date: Pure hypercholesterolemia Social History Tobacco Use Smoking status: Never Smokeless tobacco: Never Vaping Use Vaping status: Never Used Substance Use Topics Alcohol use: Yes Comment: She drinks approximately 1 sis per month Drug use: No Component Latest Ref Rng & Units 07/16/2020 07/22/2020 WBC 3.70 - 11.00 k/uL 9.35 8.25 RBC 3.90 - 5.20 m/uL 4.61 4.47 Hemoglobin 11.5 - 15.5 g/dL 13.9 13.5 Hematocrit 36.0 - 46.0 % 44.2 43.2 MCV 80.0 - 100.0 fL 95.9 96.6 MCH 26.0 - 34.0 pG 30.2 30.2 MCHC 30.5 - 36.0 g/dL 31.4 31.3 RDW-CV 11.5 - 15.0 % 16.5 (H) 16.5 (H) Platelet Count 150 - 400 k/uL 463 (H) 466 (H) MPV 9.0 - 12.7 fL 11.0 11.0 Neut% % 54.3 Abs Neut (ANC) 1.45 - 7.50 k/uL 4.48 Lymph% % 27.5 Abs Lymph 1.00 - 4.00 k/uL 2.27 [place]% % 14.9 Abs [place] <0.87 k/uL 1.23 (H) Eosin% % 2.7 Abs Eosin <0.46 k/uL 0.22 Baso% % 0.6 Abs Baso <0.11 k/uL 0.05 Nucleated Reds 0 /100 WBC 0.0 Absolute nRBC <0.01 k/uL <0.01 <0.01 Diff Type Auto Diff Pathologist Interpretation, CBCDIF SEE COMMENT Pathologist (ARMANI) The Pathologist Interpretation on this sample was cancelled because the hematology . . . Protein, Total 6.3 - 8.0 g/dL 7.0 Albumin 3.9 - 4.9 g/dL 4.1 Calcium 8.5 - 10.2 mg/dL 9.8 Bilirubin, Total 0.2 - 1.3 mg/dL 0.2 Alkaline Phosphatase 34 - 123 U/L 90 AST 13 - 35 U/L 29 Glucose 74 - 99 mg/dL 125 (H) BUN 7 - 21 mg/dL 15 Creatinine 0.58 - 0.96 mg/dL 0.80 Sodium 136 - 144 mmol/L 139 Potassium 3.7 - 5.1 mmol/L 4.2 Chloride 97 - 105 mmol/L 102 CO2 22 - 30 mmol/L 27 Anion Gap 9 - 18 mmol/L 10 ALT 7 - 38 U/L 21 eGFR- >60 eGFR-All Other Races . >60 Cholesterol, Total <200 mg/dL 216 (H) Triglyceride <150 mg/dL 198 (H) HDL Cholesterol >39 mg/dL 37 (L) LDL Cholesterol <100 mg/dL 139 (H) Non HDL Cholesterol <130 mg/dL 179 (H) Fasting Time hrs 12 VLDL Cholesterol <30 mg/dL 40 (H) TC:HDL Ratio <5.10 5.84 (H) LDL:HDL Ratio <2.54 3.76 (H) Hemoglobin A1C 4.3 - 5.6 % 6.6 (H) Estimated Average Glucose mg/dL 143 Vitamin D 25 Hydroxy 31.0 - 80.0 ng/mL 43.2 ASSESSMENT/PLAN: 1. Injury of right wrist, initial encounter - ICD9: 959.3, ICD10: S69.91XA (primary diagnosis) - XR WRIST GENERAL 3V PA/LAT/OBL RIGHT - CONSULT TO ORTHOPAEDICS - PREDNISONE 10 MG TABLET 2. Acute pain of right wrist - ICD9: 719.43, ICD10: M25.531 - XR WRIST GENERAL 3V PA/LAT/OBL RIGHT - CONSULT TO ORTHOPAEDICS - PREDNISONE 10 MG TABLET She reports pulling hard on freezer door handle yesterday and woke with right wrist pain today. Recommend x-ray today. Prednisone tapering dose for pain control. Advise: Take prednisone once daily in the morning, take with food Check your blood sugars daily for the next few days for taking prednisone. If running greater than 250 call in and speak with the nurse to let us know so we can make adjustments to your medications. [phone]. Recommend rest and elevate your right wrist. Apply ice for 15 to 20 minutes periodically throughout the day. Try using an Anshul wrap or a wrist brace to help control pain in your wrist As pain recedes, begin normal activities slowly as tolerated. Call if symptoms persist. Christa Cabrera APRN.CNS Medical Decision Making: Problems: Low: Acute, uncomplicated illness or injury Data: Unique test(s) ordered: 1 Risk: Moderate: Drug management Medical Decision Making Level: 3 - Low documented in this encounterSt. [facility] [facility] NoteHNO ID: [id number] Author: CHRISTA CABRERA APRN.ENVIRONMENTAL ATTORNEY Service: ? Author Type: Nurse Specialist Type: Progress Notes Filed: 05/19/2024 09:00 Note Text: SUBJECTIVE: Diabetic Foot Exam due on 03/11/2023 Advance Directive Discussion due on 09/27/2023 Covid-19 Vaccine() due on 12/30/2023 SILAS Rodrigez is a 78 year old female.Past medical history significant for ACTIVE PROBLEM LIST Disorder of Bone and Cartilage Allergic Rhinitis, Cause Unspecified Generalized Anxiety Disorder Recurrent Major Depressive Disorder, in Partial Remission ([facility]) Pure Hypercholesterolemia Generalized Osteoarthrosis, Involving Hand Other Specified Cardiac Dysrhythmias(427.89) Panic Disorder Without Agoraphobia Migraine Without Aura, Without Mention of Intractable Migraine Without Mention of Status Migrainosus Ascending Aortic Aneurysm ([facility]) Elisha On Cpap Non Morbid Obesity Due to Excess Calories Primary Osteoarthritis of Both Knees Chronic Pain of Left Knee Psvt (Paroxysmal Supraventricular Tachycardia) ([facility]) Lichen Sclerosus Hearing Difficulty of Both Ears Controlled Type 2 Diabetes Mellitus Without Complication, Without Long-Term Current Use of Insulin ([facility]) Chronic Pain of Right Knee Obesity, Class I, Bmi 30-34.9 Compression Fracture of L1 Lumbar Vertebra ([facility]) Cerebrovascular Accident (Cva) ([facility]) Osteopenia Paf (Paroxysmal Atrial Fibrillation) ([facility]) She called the office this morning with report of wrist injury now with pain and swelling. She presents today with report of pulling hard on her freezer handle yesterday. Did not initially hurt but awoke this morning with acute pain, moderately severe in right wrist, most painful in the right radial region. Increased with movement. She has decreased range of motion due to pain. She notes an abnormal sensation in the palm of her hand but no numbness or tingling. No arm pain. Prior history of carpal tunnel surgery right wrist. Notes tried to use brace that she had at home but hurt too much. She is right handed. Notes tylenol and icing has helped the pain. Taking Eliquis so avoiding NSAIDs. Prior intolerance of opiates, made her aggravated. Hemoglobin A1C (%) Date Value 02/28/2024 7.0 06/09/2021 7.1 Review of Systems Constitutional: Negative. Endocrine: Negative. Musculoskeletal: Positive for arthralgias. Objective BP 155/85 Pulse 85 Resp 16 Physical Exam Vitals and nursing note reviewed. HENT: Head: Normocephalic and atraumatic. Right Ear: Hearing normal. Left Ear: Hearing normal. Eyes: Conjunctiva/sclera: Conjunctivae normal. Cardiovascular: Rate and Rhythm: Normal rate. Pulmonary: Effort: Pulmonary effort is normal. Breath sounds: Normal breath sounds. Musculoskeletal: Right wrist: Tenderness present. No crepitus. Decreased range of motion. Normal pulse. Right hand: Tenderness present. Normal range of motion. Normal capillary refill. Normal pulse. Lymphadenopathy: Cervical: No cervical adenopathy. Skin: General: Skin is warm and dry. Neurological: Mental Status: She is alert. ALLERGIES Allergen Reactions Epinephrine Other: See Comments Tachycardia, becomes incoherent Penicillins Rash Percocet [Oxycodone* Vomiting It makes her feel drunk Xylocaine [Lidocain* Other: See Comments tachycardia--Not really sure if had reaction to this or if was the epinephrine acyclovir (ZOVIRAX) 400 mg tablet Take 1 tablet by mouth two times a day. verapamil 80 mg tablet Take 1 tablet by mouth two times a day. gabapentin (NEURONTIN) 300 mg capsule Take 1 capsule by mouth three times a day. clobetasol (TEMOVATE) 0.05 % cream Apply 1 application to affected area once daily as needed. alendronate (FOSAMAX) 70 mg tablet Take 1 tablet by mouth one time a week. Take with a full glass of water, on an empty stomach; do NOT lie down for 30minutes. PARoxetine (PAXIL) 20 mg tablet Take 2 tablets by mouth every morning AND 0.5 tablets every evening. metFORMIN ER (GLUCOPHAGE XR) 500 mg 24 hr tablet Take 1 tablet by mouth two times a day before meals. or as directed rosuvastatin (CRESTOR) 10 mg tablet Take 1 tablet by mouth once daily. As directed Cholecalciferol, Vitamin D3, (VITAMIN D-3) 50 mcg (2,000 unit) cap Take 1 capsule by mouth once daily. apixaban (ELIQUIS) 5 mg tab(s) Take 1 tablet by mouth two times a day. cyanocobalamin (VITAMIN B-12) 1,000 mcg tab Take 1,000 mcg by mouth once daily. HAIR, SKIN AND NAILS, BIOTIN, ORAL Take 1 capsule by mouth once daily. albuterol HFA (PROVENTIL HFA, VENTOLIN HFA) 90 mcg/actuation inhaler INHALE 2 PUFFS BY MOUTH UP TO 4 TIMES DAILY NEEDED acetaminophen (TYLENOL EX STR ARTHRITIS PAIN ORAL) Take by mouth as needed. meclizine (ANTIVERT) 25 mg tab Take 1 tablet by mouth every 6 hours as needed (dizziness/vertigo). CPAP Initiate CPAP @ 12 cm of water with humidification. Mask (per patient preference) optional chin strap (if (more content not included)...[facility]08-23-2024 Telephone encounter Note* Telephone Encounter - Didi Collins RN - 05/19/2024 7:02 AM EDT Reason for call: Hand and wrist injury Outcome: Advised to SEE HCP (OR PCP TRIAGE)WITHIN 4 HOURS. Patient verbalized understanding and is agreeable to the plan. Transferred to [place] at the appointment center for scheduling. GO TO THE EMERGENCY ROOM OR CALL 911 IF: * You develop any new symptoms * Your condition worsens * You are concerned or anxious about your condition for any other reason. If you have any questions, you can call Nurse tower control operator back. Reason for Disposition [1] Large swelling or bruise (> 2 inches or 5 cm) AND [2] can't use injured hand normally (e.g.,make a fist, open fully, hold a glass of water) Per nursing judgment. Followed a hand or wrist injury Answer Assessment - Initial Assessment Questions 1. MECHANISM: Pulled very hard on the freezer door 2. ONSET: Last night 05/19/2024 3. APPEARANCE of INJURY: Patient states, right wrist 4. SEVERITY: Patient states, she is unable to bend her wrist 5. SIZE: Wrist and lower arm area, and thumb is noticeably swollen 6. PAIN: Patient reports 8-10 7. TETANUS: N/A 8. OTHER SYMPTOMS: Patient denies 9. : N/A Protocols used: Wrist [id number], Hand and Wrist Dxkaoi-QIJUZ-CI [facility]08-23-2024 Miscellaneous Notes* Telephone Encounter - Didi Collins RN - 05/19/2024 7:02 AM EDT Reason for call: Hand and wrist injury Outcome: Advised to SEE HCP (OR PCP TRIAGE)WITHIN 4 HOURS. Patient verbalized understanding and is agreeable to the plan. Transferred to [place] at the appointment center for scheduling. GO TO THE EMERGENCY ROOM OR CALL 911 IF: * You develop any new symptoms * Your condition worsens * You are concerned or anxious about your condition for any other reason. If you have any questions, you can call Nurse tower control operator back. Reason for Disposition [1] Large swelling or bruise (> 2 inches or 5 cm) AND [2] can't use injured hand normally (e.g.,make a fist, open fully, hold a glass of water) Per nursing judgment. Followed a hand or wrist injury Answer Assessment - Initial Assessment Questions 1. MECHANISM: Pulled very hard on the freezer door 2. ONSET: Last night 05/19/2024 3. APPEARANCE of INJURY: Patient states, right wrist 4. SEVERITY: Patient states, she is unable to bend her wrist 5. SIZE: Wrist and lower arm area, and thumb is noticeably swollen 6. PAIN: Patient reports 8-10 7. TETANUS: N/A 8. OTHER SYMPTOMS: Patient denies 9. : N/A Protocols used: Wrist [id number], Hand and Wrist Fhafdq-[id number] documented in this encounterSt. [facility] Telephone encounter Note * Telephone Encounter - Sobeida Mejias - 03/17/2024 1:16 PM EDT Prescription Refill Information The patient has been identified by name and date of : Yes Caregiver verified no other encounters exist for this prescription request: Yes Caregiver confirmed with patient/requestor that no other refills are due, in the near future, with this provider at this time: Yes The last office visit in the department: 02/28/2024 Does the patient have a future office visit with this provider/department: Yes Requested Prescriptions Pending Prescriptions Disp Refills acyclovir (ZOVIRAX) 400 mg tablet 180 tablet 3 Sig: Take 1 tablet by mouth two times a day. Please send today patient is out of this medication Sobeida Castillo March 17, 2024 1:[address] [facility]06-21-2024 Miscellaneous Notes* Telephone Encounter - Sobeida Mejias - 03/17/2024 1:16 PM EDT Prescription Refill Information The patient has been identified by name and date of : Yes Caregiver verified no other encounters exist for this prescription request: Yes Caregiver confirmed with patient/requestor that no other refills are due, in the near future, with this provider at this time: Yes The last office visit in the department: 02/28/2024 Does the patient have a future office visit with this provider/department: Yes Requested Prescriptions Pending Prescriptions Disp Refills acyclovir (ZOVIRAX) 400 mg tablet 180 tablet 3 Sig: Take 1 tablet by mouth two times a day. Please send today patient is out of this medication Sobeida Castillo March 17, 2024 1:17 PM documented in this encounterSt. [facility] Telephone encounter Note * Telephone Encounter - Jessa Pillai LPN - 03/03/2024 10:48 AM EDT Handicapped parking permit signed and mailed to patient [facility]06-07-2024 Miscellaneous Notes* Telephone Encounter - Jessa Pillai LPN - 03/03/2024 10:48 AM EDT Handicapped parking permit signed and mailed to patient * Telephone Encounter - Jessa Pillai LPN - 03/03/2024 8:18 AM EDT Handicapped parking permit printed for providers signature and at nurses pod if appropriate. * Telephone Encounter - Dagmar Flynn - 03/02/2024 12:03 PM EDT Elizabeth is calling Yenifer Gonsalez MD today with concern regarding Forms/letter (Handicap placard letter ) Patient forgot to ask when she was in the office the other day. She would like letter/ prescriptionfor handicap placard. Patient will come to office to picker. Please call patient when ready to be picked up. Thank you. Patient has been identified by name and birthdate. Duration of symptoms: N/A Person calling: self Call patient at: at home [phone] (home) [phone] (cell) Was an appointment scheduled: No Closing statement: Results or non-symptom based questions: Thank you for calling [facility], your call will be returned within the next business day. Dagmar Proctor documented in this encounterSt. Mary'[facility]06-[facility] Telephone encounter Note * Telephone Encounter - Jessa Pillai LPN - 03/03/2024 8:18 AM EDT Handicapped parking permit printed for providers signature and at nurses pod if appropriate. [facility]06-06-2024 Telephone encounter Note* Telephone Encounter - Dagmar Flynn - 03/02/2024 12:03 PM EDT Elizabeth is calling Yenifer Gonsalez MD today with concern regarding Forms/letter (Handicap placard letter ) Patient forgot to ask when she was in the office the other day. She would like letter/ prescriptionfor handicap placard. Patient will come to office to picker. Please call patient when ready to be picked up. Thank you. Patient has been identified by name and birthdate. Duration of symptoms: N/A Person calling: self Call patient at: at home [phone] (home) [phone] (cell) Was an appointment scheduled: No Closing statement: Results or non-symptom based questions: Thank you for calling [facility], your call will be returned within the next business day. Dagmar Proctor [facility]06-03-2024 History of Present illness Narrative* Yenifer Gonsalez MD - 02/28/2024 1:18 PM EDT This note was created using NoteWriter. Subjective Elizabeth Rodrigez is a 78 year old female. Patient presents with: Established Patient: Follow up and c/o Possible URI x 12 days SUBJECTIVE: Elizabeth Rodrigez is a 78 year old year old lady here today for follow up appointment for review of medical conditions. Bad cold symptoms for 12 days. Getting better. Wears CPAP nightly and benefits from use. Noted issues with right elbow that started a week before vacation. Sometimes gets bad. Tylenol helps. Driving 24 hours in a week and swimming.Seemed to exacerbate it/ Can refer to ortho as needed or PT. Left knee was replaced 6 months ago. Still can get swelling. Told is normal. Could take 12 months to get better. Wondered about med for weight loss. Plans to resume going to [employer]. PAST MEDICAL HISTORY Diagnosis Date Allergic rhinitis, cause unspecified Allergic rhinitis Carpal tunnel syndrome Depressive disorder, not elsewhere classified Disorder of bone and cartilage, unspecified Dysmetabolic syndrome X Dyspepsia and other specified disorders of function of stomach Dyspepsia Generalized anxiety disorder Anxiety, Generalized Generalized osteoarthrosis, involving hand Hemorrhage of gastrointestinal tract, unspecified Lichen sclerosus saw Dr. Jarvis Migraine without aura Obstructive sleep apnea (adult) (pediatric) uses C-PAP Other specified cardiac dysrhythmias(427.89) Panic disorder without agoraphobia Pure hypercholesterolemia Current Outpatient Medications Medication Sig alendronate (FOSAMAX) 70 mg tablet Take 1 tablet by mouth one time a week. Take with a full glass of water, on an empty stomach; do NOT lie down for 30minutes. diclofenac (VOLTAREN ARTHRITIS PAIN) 1 % topical gel 2 gram up to 4 times a day for shoulder joints; 4 gram up to 4 times a day for knee joints. No more than 32 grams total per day PARoxetine (PAXIL) 20 mg tablet Take 2 tablets by mouth every morning AND 0.5 tablets every evening. metFORMIN ER (GLUCOPHAGE XR) 500 mg 24 hr tablet Take 1 tablet by mouth two times a day before meals. or as directed rosuvastatin (CRESTOR) 10 mg tablet Take 1 tablet by mouth once daily. As directed Cholecalciferol, Vitamin D3, (VITAMIN D-3) 50 mcg (2,000 unit) cap Take 1 capsule by mouth once daily. gabapentin (NEURONTIN) 300 mg capsule Take 1 capsule by mouth every morning AND 1 capsule every afternoon AND 2 capsules daily at bedtime. Do all this for 180 days. apixaban (ELIQUIS) 5 mg tab(s) Take 1 tablet by mouth two times a day. cyanocobalamin (VITAMIN B-12) 1,000 mcg tab Take 1,000 mcg by mouth once daily. HAIR, SKIN AND NAILS, BIOTIN, ORAL Take 1 capsule by mouth once daily. albuterol HFA (PROVENTIL HFA, VENTOLIN HFA) 90 mcg/actuation inhaler INHALE 2 PUFFS BY MOUTH UP TO 4 TIMES DAILY NEEDED acetaminophen (TYLENOL EX STR ARTHRITIS PAIN ORAL) Take by mouth as needed. meclizine (ANTIVERT) 25 mg tab Take 1 tablet by mouth every 6 hours as needed (dizziness/vertigo). verapamil 80 mg tablet Take 1 tablet by mouth twice daily. clobetasol (TEMOVATE) 0.05 % cream Apply 1 application to affected area once daily as needed. acyclovir (ZOVIRAX) 400 mg tablet Take 1 tablet by mouth twice daily. CPAP Initiate CPAP @ 12 cm of water with humidification. Mask (per patient preference) optional chin strap (if indicated) , filters, tubing, humidifier and lifetime supplies. fluticasone (FLONASE) 50 mcg/actuation nasal spray Use 2 Sprays in each nostril once daily. for sinus drainage and genstion pumpkin seed extract-soy germ (AZO BLADDER CONTROL) 300 mg cap Take 1-3 capsules by mouth once daily. (usually just needs 1 capsule daily) albuterol (PROVENTIL) 5 mg/mL nebu Inhale 0.5 mL as instructed one time only for 1 dose. 1 DOSE NOW- BACK OFFICE. PLACE 0.5 ML PER DROPPER AND 2.5 ML OF NORMAL SALINE INTO RESERVOIR. COMPOUNDED PRESCRIPTION CPAP mask COMPOUNDED PRESCRIPTION CPAP mask--Mirage FX with formal mask fitting No current facility-administered medications for this visit. Review of Systems Objective BP 112/60 Pulse 92 Temp 36.6 C (97.8 F) Resp 18 Wt 80.3 kg (177 lb) SpO2 96% BMI 34.07 kg/m Physical Exam Constitutional: Appearance: Normal appearance. HENT: Head: Normocephalic. Eyes: Conjunctiva/sclera: Conjunctivae normal. Cardiovascular: Rate and Rhythm: Normal rate and regular rhythm. Heart sounds: Normal heart sounds. Pulmonary: Effort: Pulmonary effort is normal. Breath sounds: Normal breath sounds. Musculoskeletal: Right lower leg: No edema. Left lower leg: No edema. Skin: General: Skin is warm and dry. Neurological: General: No focal deficit present. Mental Status: She is alert and oriented to person, place, and time. Psychiatric: Mood and Affect: Mood normal. Behavior: Behavior normal. Thought Content: Thought content normal. Judgment: Judgment normal. Labs done today are still in process. Assessment and Plan Encounter Diagnosis ICD-10-CM 1. Controlled type 2 diabetes mellitus without complication, without long-term current use of insulin ([facility]) E11.9 ALBUMIN/CREATININE RATIO, URINE Control good. Continue present management 2. Recurrent major depressive disorder, in partial remission ([facility]) F33.41 gabapentin (NEURONTIN) 300 mg capsule Gabapentin helps as mood stabilizer. Continue present meds 3. PAF (paroxysmal atrial fibrillation) ([facility]) I48.0 Controlled. Continue med management 4. Ascending aortic aneurysm, unspecified whether ruptured ([facility]) I71.21 Continue monitoring. Continue BP control 5. PSVT (paroxysmal supraventricular tachycardia) ([facility]) I47.10 verapamil 80 mg tablet Stable. Continue med management 6. Lichen sclerosus L90.0 clobetasol (TEMOVATE) 0.05 % cream Stable. Continue clobetasol 7. Generalized anxiety disorder F41.1 gabapentin (NEURONTIN) 300 mg capsule Gabapentin helps as mood stabilizer Above issues addressed with patient. Patient involved in shared decision making for management of medical issues. History and medications reviewed. Epic updated as needed Refills and/or prescriptions taken care of and meds adjusted as indicated after reviewed history, exam and labs. Health Maintenance reviewed. Updated record and/or ordered tests as recorded. Encouraged on efforts at healthy diet and regular exercise and adequate sleep. Yenifer Gonsalez MD documented in this encounterSt. [facility]03[facility]29[facility] Instructions* Patient Instructions* Yenifer Gonsalez MD - 12/24/2023 3:28 PM EDT BONE MINERAL DENSITY PATIENT INSTRUCTIONS Bone mineral density testing measures the amount of calcium in certain parts of your bones. This information determines how strong your bones are. The test is used to detect osteoporosis, a disease in which the bone's mineral content and density are low, increasing a person's risk of fractures. Thelumbar spine (lower back) and the hip are the skeletal sites usually examined. For the test, remember that: 1. You cannot take this test if you are . 2. Eat a normal diet on the day of the test. 3. Take your medications as you normally would. 4. DO NOT take calcium supplements (such as Tums) for 24 hours before the test. 5. On the day of the test, leave valuables (jewelry or credit cards) at home. 6. The test should be performed prior to oral, rectal or IV contrast studies, or at least 7 days after any of these studies. For the test, you may be asked to wear a hospital gown. You will lie on your back, on a padded table, in a comfortable position. Generally, you can resume your usual activities immediately. documented in this encounterSt. Mary'[facility]03[facility] History of Present illness Narrative* Yenifer Gonsalez MD - 12/24/2023 3:00 PM EDT This note was created using tydyter. Subjective Elizabeth Rodrigez is a 78 year old female. Patient presents with: Follow Up SUBJECTIVE: Elizabeth Rodrigez is a 78 year old year old lady here today for 3month follow up appointment for review of medical conditions. History of present illness - Patient reported feeling much better since last visit in September - Experienced significant pain and emotional distress after surgery - Reports feeling crazy and having no patience with others - Reports improvement after increase in antidepressants - Reports confusion and distress after being told by lab that she was in kidney failure, which was later clarified as a misunderstanding - Reports fatigue and lack of energy - Reports brief episodes of crossed eyes and difficulty concentrating, lasting only seconds - Reports constant shaking in hand, has been present for at least five years - Reports symptoms of low blood sugar in the afternoon Past medical history - History of stroke in November - History of depression and anxiety - History of bladder infections, which have recently stopped Past surgical history - Left knee replacement - 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, considering replacement Social history - Ex- recently moved in with her - Practices intermittent fasting - Reports slow weight loss PAST MEDICAL HISTORY Diagnosis Date Allergic rhinitis, cause unspecified Allergic rhinitis Carpal tunnel syndrome Depressive disorder, not elsewhere classified Disorder of bone and cartilage, unspecified Dysmetabolic syndrome X Dyspepsia and other specified disorders of function of stomach Dyspepsia Generalized anxiety disorder Anxiety, Generalized Generalized osteoarthrosis, involving hand Hemorrhage of gastrointestinal tract, unspecified Lichen sclerosus saw Dr. Jarvis Migraine without aura Obstructive sleep apnea (adult) (pediatric) uses C-PAP Other specified cardiac dysrhythmias(427.89) Panic disorder without agoraphobia Pure hypercholesterolemia Current Outpatient Medications Medication Sig rosuvastatin (CRESTOR) 10 mg tablet Take 1 tablet by mouth once daily. As directed Cholecalciferol, Vitamin D3, (VITAMIN D-3) 50 mcg (2,000 unit) cap Take 1 capsule by mouth once daily. gabapentin (NEURONTIN) 300 mg capsule Take 1 capsule by mouth every morning AND 1 capsule every afternoon AND 2 capsules daily at bedtime. Do all this for 180 days. PARoxetine (PAXIL) 20 mg tablet Take 1 tablet by mouth every morning AND 1.5 tablets every evening. apixaban (ELIQUIS) 5 mg tab(s) Take 1 tablet by mouth two times a day. cyanocobalamin (VITAMIN B-12) 1,000 mcg tab Take 1,000 mcg by mouth once daily. HAIR, SKIN AND NAILS, BIOTIN, ORAL Take 1 capsule by mouth once daily. albuterol HFA (PROVENTIL HFA, VENTOLIN HFA) 90 mcg/actuation inhaler INHALE 2 PUFFS BY MOUTH UP TO 4 TIMES DAILY NEEDED acetaminophen (TYLENOL EX STR ARTHRITIS PAIN ORAL) Take by mouth as needed. meclizine (ANTIVERT) 25 mg tab Take 1 tablet by mouth every 6 hours as needed (dizziness/vertigo). metFORMIN ER (GLUCOPHAGE XR) 500 mg 24 hr tablet Take 1 tablet by mouth twice daily before meals. or as directed alendronate (FOSAMAX) 70 mg tablet Take 1 tablet by mouth one time a week. Take with a full glass of water, on an empty stomach; do NOT lie down for 30minutes. verapamil 80 mg tablet Take 1 tablet by mouth twice daily. diclofenac (VOLTAREN ARTHRITIS PAIN) 1 % topical gel 2 gram up to 4 times a day for shoulder joints; 4 gram up to 4 times a day for knee joints. No more than 32 grams total per day clobetasol (TEMOVATE) 0.05 % cream Apply 1 application to affected area once daily as needed. acyclovir (ZOVIRAX) 400 mg tablet Take 1 tablet by mouth twice daily. CPAP Initiate CPAP @ 12 cm of water with humidification. Mask (per patient preference) optional chin strap (if indicated) , filters, tubing, humidifier and lifetime supplies. fluticasone (FLONASE) 50 mcg/actuation nasal spray Use 2 Sprays in each nostril once daily. for sinus drainage and genstion pumpkin seed extract-soy germ (AZO BLADDER CONTROL) 300 mg cap Take 1-3 capsules by mouth once daily. (usually just needs 1 capsule daily) albuterol (PROVENTIL) 5 mg/mL nebu Inhale 0.5 mL as instructed one time only for 1 dose. 1 DOSE NOW- BACK OFFICE. PLACE 0.5 ML PER DROPPER AND 2.5 ML OF NORMAL SALINE INTO RESERVOIR. COMPOUNDED PRESCRIPTION CPAP mask COMPOUNDED PRESCRIPTION CPAP mask--Mirage FX with formal mask fitting No current facility-administered medications for this visit. Review of Systems Objective BP (P) 128/80 (BP Site: Left Arm, BP Position: Sitting, BP Cuff Size: Large Adult) Pulse (P) 84 Wt (P) 77.6 kg (171 lb) BMI (P) 32.92 kg/m Physical Exam Constitutional: Appearance: Normal appearance. HENT: Head: Normocephalic. Eyes: Conjunctiva/sclera: Conjunctivae normal. Cardiovascular: Rate and Rhythm: Normal rate and regular rhythm. Heart sounds: Normal heart sounds. Pulmonary: Effort: Pulmonary effort is normal. Breath sounds: Normal breath sounds. Musculoskeletal: Right lower leg: No edema. Left lower leg: No edema. Skin: General: Skin is warm and dry. Neurological: General: No focal deficit present. Mental Status: She is alert and oriented to person, place, and time. Psychiatric: Attention and Perception: Attention and perception normal. Mood and Affect: Mood and affect normal. Speech: Speech normal. Behavior: Behavior normal. Thought Content: Thought content normal. Cognition and Memory: Cognition normal. Judgment: Judgment normal. Assessment and Plan Encounter Diagnosis ICD-10-CM 1. Controlled type 2 diabetes mellitus without complication, without long-term current use of insulin ([facility]) E11.9 COMP METABOLIC PANEL HGB A1C metFORMIN ER (GLUCOPHAGE XR) 500 mg 24 hr tablet Slightly elevated UACR last check. Sugars have been controlled. 2. Generalized anxiety disorder F41.1 PARoxetine (PAXIL) 20 mg tablet Emotional support given. See below 3. Mixed hyperlipidemia E78.2 LIPID PANEL BASIC Continue present mangement 4. Essential tremor G25.0 Left hand noted. Monitor and treat accordningly 5. Fatigue, unspecified type R53.83 VITAMIN B12 BLOOD Multiple causes. Keep working on stayin as active as able, but resting as much as needed too. 6. Asymptomatic postmenopausal status Z78.0 DXA-AXIAL SKELETON BD DXA TRABECULAR BONE SCORE (TBS) 7. Encounter for long-term current use of medication Z79.899 COMP METABOLIC PANEL HGB A1C CBC LIPID PANEL BASIC Assessment - Improved mental health since last visit - Pain management after surgery - Misunderstanding about kidney function clarified - Possible transient ischemic attacks (TIAs) reported - Possible essential tremor in hand - No signs of Parkinson's disease Plan - Continue current medications - Monitor potential TIAs and record details - Check B12 levels with next set of labs - Bone density test after January 20 - Consider knee replacement for right knee - Consult with neurologist about Eliquis and potential TIAs - Monitor blood sugar levels, especially in the afternoon - Monitor hand tremor, no treatment necessary at this time Prescription - Adjusted prescription for Paroxetine to two 20mg in the morning and one in the afternoon - Refill for Metformin - Refill for Voltaren gel Appointments - Follow-up appointment in February - Yearly checkup scheduled for August - Appointment with orthopedic surgeon on February 25 to discuss potential right knee replacement. Note drafted by [employer]. Note reviewed, edited, and signed by the visit provider. I spent a total of 34 minutes on the date of the service which included [id number] patient care, completing clinical documentation, obtaining and/or reviewing separately obtained history, performing a medically appropriate examination, counseling and educating the patient/family/caregiver, ordering medications, tests, or procedures, independently interpreting results (not separately reported), and communicating results to the patient/family/caregiver. documented in this encounterSt. Mary'[facility]03[facility] Miscellaneous Notes* Telephone Encounter - Jessica Franklin MA - 12/13/2023 10:16 AM EDT Updated to 10 mg tablet and sig changed to take once daily. Jessica Franklin MA * Telephone Encounter - Nina Massey - 12/09/2023 4:32 PM EDT Pharmacy verified in [facility] Patient has been identified by name and date of : Yes Patient aware RX will be sent to pharmacy. No need to notify patient. Patient phones for refill(s): Requested Prescriptions Pending Prescriptions Disp Refills rosuvastatin (CRESTOR) 5 mg tablet 90 tablet 3 Sig: Take 2 tablets by mouth once daily. As directed Date of last office visit : 08/30/2023 Date of next office visit : 12/24/2023 Last 2 Encounter Wt Readings: Date: Wt: 08/30/2023 80.3 kg (177 lb) 02/26/2023 78 kg (172 lb) Not applicable Please advise. Nina Lowery Pss documented in this encounterSt. Mary'[facility] Miscellaneous Notes* Telephone Encounter - Yenifer Gonsalez MD - 11/10/2023 7:45 PM EST Okayed * Telephone Encounter - Nina Massey - 11/10/2023 3:45 PM EST Pharmacy verified in Epic Patient has been identified by name and date of : Yes Patient aware RX will be sent to pharmacy. No need to notify patient. Patient phones for refill(s): Requested Prescriptions Pending Prescriptions Disp Refills Cholecalciferol, Vitamin D3, (VITAMIN D-3) 50 mcg (2,000 unit) cap 90 capsule 0 Sig: Take 1 capsule by mouth once daily. Date of last office visit : 08/30/2023 Date of next office visit : 11/15/2023 Last 2 Encounter Wt Readings: Date: Wt: 08/30/2023 80.3 kg (177 lb) 02/26/2023 78 kg (172 lb) Not applicable Please advise. Nina Proctor documented in this encounterSt. Mary'[facility] Telephone encounter Note * Telephone Encounter - Yocasta Talavera RN - 10/07/2023 1:06 PM EST Pt called the wrong number, trying to reach member services for coverage information question. Advised pt to call member services number on back of card. Reason for Disposition Information only question and nurse able to answer Protocols used: Information Only Call - No [id number] [id number] Miscellaneous Notes* Telephone Encounter - Yocasta Talavera RN - 10/07/2023 1:06 PM EST Pt called the wrong number, trying to reach member services for coverage information question. Advised pt to call member services number on back of card. Reason for Disposition Information only question and nurse able to answer Protocols used: Information Only Call - No [id number] documented in this encounterSCleveland Clinic Hillcrest [id number] Note Date of Service September 15, 2023 Subjective The patient was sitting in bed upon examination. Patient denies any chest pain, shortness of breath, dizziness, lightheadedness, nausea or vomiting, or calf pain. No adverse overnight events. Pain has been controlled on medications. Patient states she has been up walking to the bathroom. She is wishing to do home health physical therapy upon discharge. There was discussion about possible penitentiary facility. Patient states she would prefer to go home with home health. We are awaiting todaywith physical therapy for their recommendations. Objective Vitals and Measurements T: 36.7 C (Oral) TMIN: 36 C TMAX: 36.8 C (Oral) HR: 86(Apical) RR: 16 BP: 128/71 SpO2: 94% HT: 155 cm WT: 80.8 kg BMI: 33.63 Intake and Output 7AM Yesterday to 7AM Today Intake and Output (Last 24 hours) Intake Administration Information 1145.00 Oral Intake 300.00 Output Intra-Op EBL 50.00 Urine Count 3.00 Total Summary Total Intake 1445.00 Total Output 50.00 Fluid Balance 1395.00 Physical Exam Vital signs stable, afebrile SCDs and TONIA hose are in place bilaterally Patient is able to plantarflex and dorsiflex actively Sensation is intact to saphenous, sural, superficial and deep peroneal, and tibial distribution Main Mepilex dressing with half dollar size drainage over the middle one third, saturation of the distal pin site dressing. Instructions have been given to nursing to change the distal pin site dressing Negative signs and symptoms of DVT, negative Homans bilaterally Weight Dosing Weight: 80.8 kg (09/14/23) Dosing Weight: 80.8 kg (09/14/23) Medications Medications (25) Active Scheduled: (13) acyclovir 400 mg tablet 400 mg 1 tab(s), Oral, BID atorvastatin 10 mg tablet 20 mg 2 tab(s), Oral, qHS bisacodyl 5 mg EC tablet 10 mg 2 tab(s), Oral, Once docusate sodium 100 mg Capsule 100 mg 1 cap(s), Oral, BID docusate-senna (Senokot S) 50 mg-8.6 mg Tablet 2 tab(s), Oral, BID famotidine 20 mg tablet 20 mg 1 tab(s), Oral, qDay gabapentin 300 mg Capsule 300 mg 1 cap(s), Oral, BID insulin lispro 100 units/mL Soln (3 mL) Give 0-5 units/dose, Subcutaneous, TIDAC magnesium hydroxide 8% Suspension 30 mL UD 30 mL, Oral, Daily multivitamin (Myadec) with minerals Therapeutic Multiple Vitamins with Minerals Tablet 1 tab(s), Oral, qDayM ondansetron 2 mg/ 1 mL 2 mL INJ 4 mg 2 mL, IV Push, q8h paroxetine 20 mg tablet 20 mg 1 tab(s), Oral, BID verapamil 80 mg tablet 80 mg 1 tab(s), Oral, BID Continuous: (1) Lactated Ringers 1,000 mL 1,000 mL, Intravenous, 100 mL/hr PRN: (11) acetaminophen 325 mg Tablet 650 mg 2 tab(s), Oral, q6h acetaminophen 325 mg Tablet 650 mg 2 tab(s), Oral, q4h acetaminophen-HYDROcodone 325-5 mg tablet 1 tab(s), Oral, q4h acetaminophen-HYDROcodone 325-5 mg tablet 2 tab(s), Oral, q4h diphenhydramine 25 mg tablet 25 mg 1 tab(s), Oral, q6h diphenhyDRAMINE 50 mg/mL (1 mL) INJ 25 mg 0.5 mL, IV Push, q6h ketorolac 30 mg/mL (1 mL) vial 15 mg 0.5 mL, IV Push, q6h morphine 2 mg/mL 1 mL syringe 2 mg 1 mL, IV Push, q1h ondansetron 2 mg/ 1 mL 2 mL INJ 4 mg 2 mL, IV Push, q8h prochlorperazine 10 mg/2 mL vial 5 mg 1 mL, IV Push, q6h sodium biphosphate-sodium phosphate 19 gm-7 gm Enema 133 mL, Rectal, qDay Lab Results No 36 Hour Lab Data EKG No qualifying data available. Assessment/Plan 1. Status post left total knee arthroplasty postop day #1 2. Continue pain medications: Hydrocodone/acetaminophen. Patient has significant reaction to Percocet however she has been tolerating the hydrocodone very well. We are unable to use nonsteroidal anti-inflammatories due to her anticoagulation for her atrial fibrillation. 3. DVT prophylaxis: Patient will resume her Eliquis 5 mg 1 tablet twice daily as she takes for atrial fibrillation. This will cover her for DVT prophylaxis. 4. Physical therapy: Weightbearing as tolerated with walker. Appreciate recommendations for discharge planning. 5. H & H: Blood draw for labs was delayed this morning and still awaiting results, asymptomatic. 6. Encouraged incentive spirometry 7. Continue postoperative medical management per medicine 8. Postoperative constipation: Discussed with the patient to continue stool softener until first bowel movement. After first bowel movement patient can then take as needed. They were also instructed that if they are not able to have a bowel movement within 3 days they are to contact our office for change of medication. Patient voiced understanding. 9. Disposition: Plan will be for possible discharge today in which patient does prefer doing home with home health therapy. We are awaiting recommendations from physical therapy. Patient would like her medications E scribed to [facility] in [facility]. Patient will also follow-up per postoperative instructions. Once we have recommendations from therapy we can plan for appropriate discharge planning. Patient has been up walking to the bathroom. Her pain has been controlled so far. Case managementis currently on board for discharge planning. I will place a home health physical therapy order in chart. I have reviewed the [place] Automated Rx Reporting System (OARRS) report for this patient for refill pattern and other prescriber involvement as part of the appropriate surveillance for the provision ofacute and chronic controlled medications. The report was requested and reviewed on the date of thisentry, and was considered in the prescribing process This dictation was created using voice recognition software. Phonetic and/or grammatical errors mayexist. Digitally Signed by JANY LUCAS PA-C on 09/15/2023 06:38 AM [facility]12-20-2023 Note Discharge Instructions Thank you for allowing [facility] to assist you with your healthcare needs. The following is importantdischarge information regarding your hospital visit. Your Care Team [facility] E[facility] Your Diagnosis Atrial fibrillation Diabetes Osteoarthritis Sleep apnea What to do next Follow Up Appointments Follow Up with EMMA BASSETT PA-C, Orthopedic When 09/28/2023 10:00 AM EST Why: This is your post-op appointment. Follow-up as scheduled. Where: [address] [place] [address] [address] [facility], [place] [address] [phone] The Following Activity and Diet Have Been Ordered for You FOLLOW POST-OP INSTRUCTIONS Allergies Percocet (VOMITING, VISION LOSS, HEARING LOSS) Xanax (VOMITING, VISION LOSS, HEARING LOSS) Medications Please ask your primary doctor or pharmacist before taking any other medication not listed, including over the counter drugs, herbal medications, vitamins and or supplements as they may interact withur home medications. What How Much When Why Instructions Last Dose New acetaminophen-hydrocodone ([place] 325- 5 mg oral tablet) See instructions Status post total left knee replacement 1-2 tab(s) Oral q6h Pickup at [facility] [address] New docusate-senna (Senokot S 50 mg-8.6 mg oral tablet) 2 tab(s) by mouth Two (2) times a day Duration: 3 Days Take until first bowel movement, then as needed Pickup at [facility] [address] Unchanged acyclovir (acyclovir 400 mg oral tablet) 1 tab(s) by mouth Two (2) times a day Unchanged alendronate (alendronate 70 mg oral tablet) 1 tab(s) by mouth Every week Unchanged apixaban (Eliquis 5 mg oral tablet) 1 tab(s) by mouth Two (2) times a day Unchanged biotin (Biotin 5000 mcg oral capsule) 1 cap by mouth Every day Unchanged cyanocobalamin (Vitamin B12 1000 mcg oral tablet) 1 tab(s) by mouth Once a day Unchanged gabapentin (gabapentin 300 mg oral capsule) 1 cap by mouth Two (2) times a day Unchanged metFORMIN (MetFORMIN (Eqv-Glucophage XR) 500 mg oral tablet, EXTENDED RELEASE) 1 tab(s) by mouth Once a day Unchanged Misc Medication (VITAMIN D3 50 MCG CAPSULE) 1,000 Milligram by mouth Every day Unchanged PARoxetine (PARoxetine 20 mg oral tablet) 1 tab(s) by mouth Two (2) times a day Unchanged rosuvastatin (rosuvastatin 10 mg oral tablet) 1 tab(s) by mouth Once a day Unchanged verapamil (verapamil 80 mg oral tablet) 1 tab(s) by mouth Two (2) times a day Pharmacy Information [facility] [address]: [address] [place], [place] [id number] [phone] What How Much When Comments Stop Taking acetaminophen (Tylenol Regular Strength 325 mg oral tablet) 2 tab(s) by mouth Every 4 hours as needed for for pain Stop Taking traMADol (traMADol 50 mg oral tablet) 1 tab(s) by mouth Every 12 hours as needed for for pain Please take this list to your next doctor s visit. Bring all medications you take, including over the counter medications, herbals and other supplements with you to your doctor s visit. Patients and families are reminded to discard old lists and to update any records with all medication providers or retail pharmacies. Education Materials [facility] Post-operative Instructions PLEASE FOLLOW [facility] POST-OP INSTRUCTIONS GIVEN WATCH FOR SIGNS OF INFECTION: call the office ([phone]) if experencing any of the following: (Usually appears 36-48 hours after surgery) Increased temperature (101 degrees Fahrenheit or higher) Redness or swelling Increased uncontrolled pain Foul odor or drainage Calf discomfort Significant swelling Or if having any chest pain, shortness of breath, or difficulty breathing or swallowing call the office or go the nearest Emergency Room. If you have any questions, please call your doctor at the number listed on your follow up instructions. Form: 338A (87374) R: 01/31 Additional Information VACCINATE! IT SAVES LIVES! Members of the community who have not yet received the COVID-19 vaccine and would like to receive it can visit one of [facility] vaccine clinics. There are many vaccine clinic locations within the [facility]. For locations and available times, please visit [email or web address].[place].gov/. It is important to note that some COVID mobile vaccine clinics are held outdoors and may be canceled in rainy or stormy conditions. To learn more about pediatric vaccinations (ages 5-11), we invite you to visit the [facility] webpage. [email or web address]/[email or web address] learn more about the COVID-19 vaccine, we invite you to visit the CDC website for a list of frequently asked questions.https://www.cdc.gov/coronavirus/2019-ncov/vaccines/faq.html [facility] Patient Portal Access Instructions: Stay connected with your healthcare team and access your personal medical information anytime with the [facility] Patient Portal. Please follow the directions below to create your [facility] account: 1.Access the email account you provided upon registration to the hospital/physician office.2.Look for an invitation email from [facility].3.Open the email and access the invitation link: AcceptInvitation to [facility] [employer]4.Fill in the required trotter to create your account. To access your account, visit [email or web address]. Click the blue button labeled Access Patient Portal and then log in with the username and password that you created in the steps above. You will be able to view your test results, lab results, a summary of your visits, upcoming appointments and more. There is also a convenient messaging option where you can send secure messages to your p rovider. In addition, you will have the ability to download any documents or summaries to your computer and/or send the information securely to a physician. Remember that your healthcare information is confidential, so carefully consider who you will allowto register on the [facility] [employer] Patient Portal for access to your information. You can also access the [facility] Patient Portal on the [facility] pa[facility]. Simply click on Patient Portal and then log into your account. If you would like to receive a full copy of your medical records, please contact the [facility] Medical Records Department by calling [phone], Wednesday through Wednesday between 8 a.m. and 4:30 p.m. HOW TO SAFELY DISPOSE OF PRESCRIPTION MEDICATIONS Please use one of the following methods to safely dispose of your unused medications. 1.Use a drug disposal kit: the drug disposal pouch allows you to safely discard your old and unuseddrugs. Ask your nurse to give you one when you are discharged.2.Visit a local take-back location: Many local pharmacies and police departments have programs that collect old and unwanted prescriptiondrugs. Call your local pharmacy or go to http://Cycle.Dysonics/0M1Tf3a to find one close to you.3.Make use of household items: Use cat litter or old coffee grounds to dispose medications if other options arenot available. Mix your drugs with these household products, seal them in an airtight container andthrow it into the garbage. Call [facility]: [phone] to be sure your drugs can be disposed of in this way. Some medicines may require a different approach.4.Never flush your medications down the toilet. IF YOU HAVE BEEN PRESCRIBED AN OPIOID FOR PAIN If you have been prescribed an opioid (such as hydrocodone, oxycodone or morphine), it is critical to understand the possible side effects and risks of opioid pain medications. Even when taken as directed, opioids can have several side effects including: Tolerance, meaning you might need to take more of a medication for the same pain relief. Nausea, vomiting and/or constipation. Sleepiness, dizziness, dry mouth, confusion, depression or itching. Physical dependence, meaning you have withdrawal symptoms when a medication is stopped, can develop within a few days. KNOW YOUR RESPONSIBILITIES It is important to know exactly how much and how often to take the opioid pain medications you are prescribed. Never take opioids in higher amounts or more often than prescribed. Do not combine opioids with alcohol or other drugs that cause drowsiness, such as benzodiazepines, also known as benzos, including diazepam and alprazolam, muscle relaxants or sleep aids. Never sell or share prescription opioids. This is illegal. Store opioids in a secure place and out of reach of others (including children, family, friends and visitors). The last page of this document has been signed and retained as a CHART COPY. Signatures Patient Education Materials 5 - [facility] Post-op Instruction 04/2017 (11183) Medication Leaflets My discharge plan and instructions have been reviewed and explained to me and I,ELIZABETH RODRIGEZ understand my current condition and have read and understand these discharge instructions. I have receiveda written copy of the plan/instructions. If I have questions, I am aware that I should contact my do ctor. 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 Signature: Date/Time: Relationship to Patient: Witness Name/Signature: Date/Time: [facility]12-20-2023 Hospital Discharge instructions Patient Education 09/15/2023 06:40:08 5 - [facility] Post-op Instruction 04/2017 (16857) [facility] Post-operative Instructions PLEASE FOLLOW [facility] POST-OP INSTRUCTIONS GIVEN WATCH FOR SIGNS OF INFECTION: call the office ([phone]) if experencing any of the following: (Usually appears 36-48 hours after surgery) Increased temperature (101 degrees Fahrenheit or higher) Redness or swelling Increased uncontrolled pain Foul odor or drainage Calf discomfort Significant swelling Or if having any chest pain, shortness of breath, or difficulty breathing or swallowing call the office or go the nearest Emergency Room. If you have any questions, please call your doctor at the number listed on your follow up instructions. Form: 338A (76837) R: 01/31 Follow Up Care 07/26/2023 11:25:21 With:EMMA BASSETT PA-C, Orthopedic Address: [address] [place] [address] [address] [facility], [place] [address]- [phone] When:09/28/2023 10:00:00 Comments:This is your post-op appointment. Follow-up as scheduled. [facility] 12-20-2023 Note Date of Service September 15, 2023 Subjective The patient was sitting in bed upon examination. Patient denies any chest pain, shortness of breath, dizziness, lightheadedness, nausea or vomiting, or calf pain. No adverse overnight events. Pain has been controlled on medications. Patient states she has been up walking to the bathroom. She is wishing to do home health physical therapy upon discharge. There was discussion about possible penitentiary facility. Patient states she would prefer to go home with home health. We are awaiting todaywith physical therapy for their recommendations. Objective Vitals and Measurements T: 36.7 C (Oral) TMIN: 36 C TMAX: 36.8 C (Oral) HR: 86(Apical) RR: 16 BP: 128/71 SpO2: 94% HT: 155 cm WT: 80.8 kg BMI: 33.63 Intake and Output 7AM Yesterday to 7AM Today Intake and Output (Last 24 hours) Intake Administration Information 1145.00 Oral Intake 300.00 Output Intra-Op EBL 50.00 Urine Count 3.00 Total Summary Total Intake 1445.00 Total Output 50.00 Fluid Balance 1395.00 Physical Exam Vital signs stable, afebrile SCDs and TONIA hose are in place bilaterally Patient is able to plantarflex and dorsiflex actively Sensation is intact to saphenous, sural, superficial and deep peroneal, and tibial distribution Main Mepilex dressing with half dollar size drainage over the middle one third, saturation of the distal pin site dressing. Instructions have been given to nursing to change the distal pin site dressing Negative signs and symptoms of DVT, negative Homans bilaterally Weight Dosing Weight: 80.8 kg (09/14/23) Dosing Weight: 80.8 kg (09/14/23) Medications Medications (25) Active Scheduled: (13) acyclovir 400 mg tablet 400 mg 1 tab(s), Oral, BID atorvastatin 10 mg tablet 20 mg 2 tab(s), Oral, qHS bisacodyl 5 mg EC tablet 10 mg 2 tab(s), Oral, Once docusate sodium 100 mg Capsule 100 mg 1 cap(s), Oral, BID docusate-senna (Senokot S) 50 mg-8.6 mg Tablet 2 tab(s), Oral, BID famotidine 20 mg tablet 20 mg 1 tab(s), Oral, qDay gabapentin 300 mg Capsule 300 mg 1 cap(s), Oral, BID insulin lispro 100 units/mL Soln (3 mL) Give 0-5 units/dose, Subcutaneous, TIDAC magnesium hydroxide 8% Suspension 30 mL UD 30 mL, Oral, Daily multivitamin (Myadec) with minerals Therapeutic Multiple Vitamins with Minerals Tablet 1 tab(s), Oral, qDayM ondansetron 2 mg/ 1 mL 2 mL INJ 4 mg 2 mL, IV Push, q8h paroxetine 20 mg tablet 20 mg 1 tab(s), Oral, BID verapamil 80 mg tablet 80 mg 1 tab(s), Oral, BID Continuous: (1) Lactated Ringers 1,000 mL 1,000 mL, Intravenous, 100 mL/hr PRN: (11) acetaminophen 325 mg Tablet 650 mg 2 tab(s), Oral, q6h acetaminophen 325 mg Tablet 650 mg 2 tab(s), Oral, q4h acetaminophen-HYDROcodone 325-5 mg tablet 1 tab(s), Oral, q4h acetaminophen-HYDROcodone 325-5 mg tablet 2 tab(s), Oral, q4h diphenhydramine 25 mg tablet 25 mg 1 tab(s), Oral, q6h diphenhyDRAMINE 50 mg/mL (1 mL) INJ 25 mg 0.5 mL, IV Push, q6h ketorolac 30 mg/mL (1 mL) vial 15 mg 0.5 mL, IV Push, q6h morphine 2 mg/mL 1 mL syringe 2 mg 1 mL, IV Push, q1h ondansetron 2 mg/ 1 mL 2 mL INJ 4 mg 2 mL, IV Push, q8h prochlorperazine 10 mg/2 mL vial 5 mg 1 mL, IV Push, q6h sodium biphosphate-sodium phosphate 19 gm-7 gm Enema 133 mL, Rectal, qDay Lab Results No 36 Hour Lab Data EKG No qualifying data available. Assessment/Plan 1. Status post left total knee arthroplasty postop day #1 2. Continue pain medications: Hydrocodone/acetaminophen. Patient has significant reaction to Percocet however she has been tolerating the hydrocodone very well. We are unable to use nonsteroidal anti-inflammatories due to her anticoagulation for her atrial fibrillation. 3. DVT prophylaxis: Patient will resume her Eliquis 5 mg 1 tablet twice daily as she takes for atrial fibrillation. This will cover her for DVT prophylaxis. 4. Physical therapy: Weightbearing as tolerated with walker. Appreciate recommendations for discharge planning. 5. H & H: Blood draw for labs was delayed this morning and still awaiting results, asymptomatic. 6. Encouraged incentive spirometry 7. Continue postoperative medical management per medicine 8. Postoperative constipation: Discussed with the patient to continue stool softener until first bowel movement. After first bowel movement patient can then take as needed. They were also instructed that if they are not able to have a bowel movement within 3 days they are to contact our office for change of medication. Patient voiced understanding. 9. Disposition: Plan will be for possible discharge today in which patient does prefer doing home with home health therapy. We are awaiting recommendations from physical therapy. [facility] Patient will also follow-up per postoperative instructions. Once we have recommendations from therapy we can plan for appropriate discharge planning. Patient has been up walking to the bathroom. Her pain has been controlled so far. Case managementis currently on board for discharge planning. I will place a home health physical therapy order in chart. I have reviewed the [place] Automated Rx Reporting System (OARRS) report for this patient for refill pattern and other prescriber involvement as part of the appropriate surveillance for the provision ofacute and chronic controlled medications. The report was requested and reviewed on the date of thisentry, and was considered in the prescribing process This dictation was created using voice recognition software. Phonetic and/or grammatical errors mayexist. Digitally Signed by JANY LUCAS PA-C on 09/15/2023 06:38 AM [facility]12-19-2023 Note ORIGINAL EXAMINATION: POSTOPERATIVE KNEE TECHNIQUE: 2 views of the left knee were obtained. COMPARISON: CT knee 08/18/2023 HISTORY: ORDERING SYSTEM PROVIDED HISTORY: Reason for Exam: Status Post Arthroplasty FINDINGS: There is normal mineralization. No acute fracture or dislocation is seen. The patient is status post knee replacement with appropriate positioning of the prosthesis. There are postsurgical changes with a small joint effusion and emphysema. IMPRESSION: Status post left knee replacement. Interpreted by: Howie Perla MD Preliminary Report By: Howie Perla MD Electronically signed By Howie Perla MD Dictated Date: 09/14/2023 10:17:56 AM Prelim Date: 09/14/2023 10:18:49 AM Sign Date: 09/14/2023 10:18:49 AM Ordering Provider: YUNIOR [facility]12-19-2023 Anesthesiology Consult note Patient: ELIZABETH RODRIGEZ Age: 78 years Sex: Female : 1945 Associated Diagnoses: None Author: DEVI FAJARDO APRN-GAS BRAZER Assessment Postanesthesia assessment Vitals: Vital signs from flowsheet : Vital Signs 09/14/2023 9:45 EST Heart Rate Monitored 84 bpm bpm Respiratory Rate - Anes 0 br/min br/min 09/14/2023 9:40 EST Heart Rate Monitored 86 bpm bpm Respiratory Rate - Anes 17 br/min br/min Systolic Blood Pressure Non-Invasive 90 mmHg mmHg Diastolic Blood Pressure Non-Invasive 75 mmHg mmHg 09/14/2023 9:35 EST Heart Rate Monitored 85 bpm bpm Respiratory Rate - Anes 6 br/min br/min Systolic Blood Pressure Non-Invasive 109 mmHg mmHg Diastolic Blood Pressure Non-Invasive 60 mmHg mmHg 09/14/2023 9:30 EST Temperature (Route Not Specified) 36 DegC DegC Heart Rate Monitored 81 bpm bpm Respiratory Rate - Anes 13 br/min br/min Systolic Blood Pressure Non-Invasive 84 mmHg mmHg Diastolic Blood Pressure Non-Invasive 56 mmHg mmHg 09/14/2023 9:25 EST Heart Rate Monitored 82 bpm bpm Respiratory Rate - Anes 15 br/min br/min Systolic Blood Pressure Non-Invasive 73 mmHg mmHg Diastolic Blood Pressure Non-Invasive 53 mmHg mmHg 09/14/2023 9:20 EST Heart Rate Monitored 82 bpm bpm Respiratory Rate - Anes 16 br/min br/min Systolic Blood Pressure Non-Invasive 95 mmHg mmHg Diastolic Blood Pressure Non-Invasive 54 mmHg mmHg 09/14/2023 9:15 EST Temperature (Route Not Specified) 36 DegC DegC Heart Rate Monitored 78 bpm bpm Respiratory Rate - Anes 17 br/min br/min Systolic Blood Pressure Non-Invasive 98 mmHg mmHg 09/14/2023 9:10 EST Heart Rate Monitored 81 bpm bpm Respiratory Rate - Anes 14 br/min br/min Systolic Blood Pressure Non-Invasive 107 mmHg mmHg Diastolic Blood Pressure Non-Invasive 63 mmHg mmHg 09/14/2023 9:05 EST Heart Rate Monitored 85 bpm bpm Respiratory Rate - Anes 16 br/min br/min Systolic Blood Pressure Non-Invasive 94 mmHg mmHg Diastolic Blood Pressure Non-Invasive 61 mmHg mmHg 09/14/2023 9:01 EST Temperature (Route Not Specified) 36 DegC DegC 09/14/2023 9:00 EST Heart Rate Monitored 83 bpm bpm Respiratory Rate - Anes 15 br/min br/min Systolic Blood Pressure Non-Invasive 97 mmHg mmHg Diastolic Blood Pressure Non-Invasive 61 mmHg mmHg 09/14/2023 8:55 EST Heart Rate Monitored 83 bpm bpm Respiratory Rate - Anes 16 br/min br/min Systolic Blood Pressure Non-Invasive 96 mmHg mmHg Diastolic Blood Pressure Non-Invasive 58 mmHg mmHg 09/14/2023 8:53 EST Systolic Blood Pressure Non-Invasive 93 mmHg mmHg Diastolic Blood Pressure Non-Invasive 55 mmHg mmHg 09/14/2023 8:50 EST Heart Rate Monitored 83 bpm bpm Respiratory Rate - Anes 15 br/min br/min Systolic Blood Pressure Non-Invasive 79 mmHg mmHg Diastolic Blood Pressure Non-Invasive 58 mmHg mmHg 09/14/2023 8:45 EST Temperature (Route Not Specified) 36 DegC DegC Heart Rate Monitored 82 bpm bpm Respiratory Rate - Anes 15 br/min br/min Systolic Blood Pressure Non-Invasive 93 mmHg mmHg Diastolic Blood Pressure Non-Invasive 55 mmHg mmHg 09/14/2023 8:40 EST Heart Rate Monitored 82 bpm bpm Respiratory Rate - Anes 15 br/min br/min Systolic Blood Pressure Non-Invasive 86 mmHg mmHg Diastolic Blood Pressure Non-Invasive 59 mmHg mmHg 09/14/2023 8:35 EST Heart Rate Monitored 85 bpm bpm Respiratory Rate - Anes 16 br/min br/min Systolic Blood Pressure Non-Invasive 95 mmHg mmHg Diastolic Blood Pressure Non-Invasive 53 mmHg mmHg 09/14/2023 8:30 EST Temperature (Route Not Specified) 36 DegC DegC Heart Rate Monitored 85 bpm bpm Respiratory Rate - Anes 15 br/min br/min Systolic Blood Pressure Non-Invasive 94 mmHg mmHg Diastolic Blood Pressure Non-Invasive 56 mmHg mmHg 09/14/2023 8:25 EST Heart Rate Monitored 88 bpm bpm Respiratory Rate - Anes 17 br/min br/min Systolic Blood Pressure Non-Invasive 99 mmHg mmHg Diastolic Blood Pressure Non-Invasive 60 mmHg mmHg 09/14/2023 8:20 EST Heart Rate Monitored 84 bpm bpm Respiratory Rate - Anes 17 br/min br/min Systolic Blood Pressure Non-Invasive 91 mmHg mmHg Diastolic Blood Pressure Non-Invasive 64 mmHg mmHg 09/14/2023 8:15 EST Temperature (Route Not Specified) 36 DegC DegC Heart Rate Monitored 94 bpm bpm Respiratory Rate - Anes 9 br/min br/min Systolic Blood Pressure Non-Invasive 127 mmHg mmHg Diastolic Blood Pressure Non-Invasive 77 mmHg mmHg 09/14/2023 8:10 EST Heart Rate Monitored 97 bpm bpm Respiratory Rate - Anes 0 br/min br/min Systolic Blood Pressure Non-Invasive 103 mmHg mmHg Diastolic Blood Pressure Non-Invasive 77 mmHg mmHg 09/14/2023 8:05 EST Respiratory Rate - Anes 0 br/min br/min 09/14/2023 8:00 EST Respiratory Rate - Anes 0 br/min br/min 09/14/2023 7:58 EST Temperature Temporal Artery 36.4 DegC Peripheral Pulse Rate 87 bpm (Modified) Respiratory Rate 14 br/min Systolic Blood Pressure Non-Invasive 143 mmHg HI (Modified) Diastolic Blood Pressure Non-Invasive 80 mmHg (Modified) , Measurements from flowsheet . Mental status: alert & oriented x 4. Respiratory function: respirations are non-labored. Respiratory support: none. CV function: Normal rate. Cardiovascular support: none. Pain. Nausea status: see nursing documentation of medications. Postoperative hydration status: within normal limits. Digitally Signed by DEVI FAJARDO on 09/14/2023 09:55 AM [facility]12-19-2023 Anesthesiology Consult note Patient: ELIZABETH RODRIGEZ Age: 78 years Sex: Female : 1945 Associated Diagnoses: None Author: DEVI FAJADRO Preoperative Information Time of last food or liquid consumption: 09/14/2023 00:00:00 Anesthesia history Patient's history: negative. Family's history: negative. Health Status Allergies: Allergic Reactions (Selected) Severity Not Documented Percocet- Vision loss, hearing loss and vomiting. Xanax- Vision loss, hearing loss and vomiting., Allergies (2) ActiveReaction PercocetVISION LOSS XanaxHEARING LOSS Current medications: (Selected) Inpatient Medications Ordered Betadine 10% topical solution: 17.5 mL, mL/hr, Topical (INT), PREOP pharm Cyklokapron IVPB: 2,000 mg, 20 mL, 0 mL/hr, Topical (INT), PREOP pharm Decadron: 10 mg, 1 mL, IV Push, AsDirected LR 1,000 mL: 20 mL/hr, Intravenous, Stop: 09/14/23 23:59:00 EST Naropin 25 mg + Toradol 15 mg + EPINEPHrine 1 mg/mL injectable solution 0.3 mg + morphine 2.5 mg...: 25 mg, 5 mL, mL/hr, Other, PREOP pharm Naropin 25 mg + Toradol 15 mg + EPINEPHrine 1 mg/mL injectable solution 0.3 mg + morphine 2.5 mg...: 25 mg, 5 mL, mL/hr, Other, PREOP pharm Documented Medications Documented Biotin 5000 mcg oral capsule: 5,000 mcg, 1 cap(s), Oral, Daily, 0 Refill(s) Eliquis 5 mg oral tablet: 5 mg, 1 tab(s), Oral, BID, 0 Refill(s) MetFORMIN (Eqv-Glucophage XR) 500 mg oral tablet, EXTENDED RELEASE: 500 mg, 1 tab(s), Oral, qDay, 30 tab(s), 0 Refill(s) PARoxetine 20 mg oral tablet: 20 mg, 1 tab(s), Oral, BID, 30 tab(s), 0 Refill(s) Tylenol Regular Strength 325 mg oral tablet: 650 mg, 2 tab(s), Oral, q4hr, PRN: for pain, 0 Refill(s) VITAMIN D3 50 MCG CAPSULE: 1,000 mg, Oral, Daily, 0 Refill(s) Vitamin B12 1000 mcg oral tablet: 1,000 mcg, 1 tab(s), Oral, qDay, 30 tab(s), 0 Refill(s) acyclovir 400 mg oral tablet: 400 mg, 1 tab(s), Oral, BID, 14 tab(s), 0 Refill(s) alendronate 70 mg oral tablet: 70 mg, 1 tab(s), Oral, qWeek, 12 tab(s), 0 Refill(s) gabapentin 300 mg oral capsule: 300 mg, 1 cap(s), Oral, BID, 60 cap(s), 0 Refill(s) rosuvastatin 10 mg oral tablet: 10 mg, 1 tab(s), Oral, qDay, 100 tab(s), 0 Refill(s) traMADol 50 mg oral tablet: 50 mg, 1 tab(s), Oral, q12h, PRN: for pain, 12 tab(s), 0 Refill(s) verapamil 80 mg oral tablet: 80 mg, 1 tab(s), Oral, BID, 270 tab(s), 0 Refill(s), Medications (6) Active Scheduled: (5) dexamethasone 10 mg/mL (1mL) SDV 10 mg 1 mL, IV Push, AsDirected povidone iodine topical 17.5 mL, Topical (INT), PREOP pharm ropivacaine 25 mg + ketorolac 15 mg + epinephrine 0.3 mg + morphine 2.5 mg 25 mg 5 mL, Other, PREOPpharm ropivacaine 25 mg + ketorolac 15 mg + epinephrine 0.3 mg + morphine 2.5 mg 25 mg 5 mL, Other, PREOPpharm tranexamic acid 2,000 mg 20 mL, Topical (INT), PREOP pharm Continuous: (1) Lactated Ringers 1,000 mL 1,000 mL, Intravenous, 20 mL/hr PRN: (0) Problem list: Active Problems (10) Asthma Atrial fibrillation Depression Diabetes Incontinence in female Osteoarthritis Osteopenia Sarcoidosis Sleep apnea Stroke Histories Past Medical History: No active or resolved past medical history items have been selected or recorded. Family History: Dementia Mother Heart attack Father Procedure history: Splenectomy (499191764). Lumpectomy of left breast (3772923282). Hysterectomy (362845157). Social History Social & Psychosocial Habits Alcohol 09/14/2023 Use: Current Type: Beer Frequency: 1-2 times per week Substance Abuse 09/14/2023 Use: Never Tobacco 09/14/2023 Tobacco Use: Never (less than 100 in l Home/Environment 09/14/2023 Living situation: Home/Independent Safe place to go: Yes Domestic Concerns None Nutrition/Health 09/14/2023 Type of diet: Regular . Physical Examination Vital Signs 09/14/2023 8:15 EST Heart Rate Monitored 94 bpm bpm Respiratory Rate - Anes 9 br/min br/min Systolic Blood Pressure Non-Invasive 127 mmHg mmHg Diastolic Blood Pressure Non-Invasive 77 mmHg mmHg 09/14/2023 8:10 EST Heart Rate Monitored 97 bpm bpm Respiratory Rate - Anes 0 br/min br/min Systolic Blood Pressure Non-Invasive 103 mmHg mmHg Diastolic Blood Pressure Non-Invasive 77 mmHg mmHg 09/14/2023 8:05 EST Respiratory Rate - Anes 0 br/min br/min 09/14/2023 8:00 EST Respiratory Rate - Anes 0 br/min br/min 09/14/2023 7:58 EST Temperature Temporal Artery 36.4 DegC Peripheral Pulse Rate 87 bpm (Modified) Respiratory Rate 14 br/min Systolic Blood Pressure Non-Invasive 143 mmHg HI (Modified) Diastolic Blood Pressure Non-Invasive 80 mmHg (Modified) Vital Signs(last 24 hrs) Last Charted Heart Rate [id number] bpm (SEP 14 08:15) Resp Rate 14 br/min (SEP 14 07:58) [id number] mmHg (SEP 14 08:15) DBP77 mmHg (SEP 14 08:15) Pain assessment: Pain Assessment 09/14/2023 8:05 EST Primary Pain Intensity Not Done: Not Appropriate at this Time (Not Done) 09/14/2023 7:58 EST Primary Pain Intensity 0 Pain Scale Type 0-10 Pain scale . General: Alert and oriented. Airway: Normal temporomandibular joint mobility, Normal mouth. Mallampati classification: III (soft palate, base of uvula visible). Dentition Evaluation: Denies loose/chipped teeth. Respiratory: Respirations are non-labored, much better since her flu pcp gave tamaflu, chronic cough and cough since flu. Cardiovascular: Normal rate. Neurologic: Alert, Oriented. Review / Management Results review: No qualifying data available , Lab results 09/14/2023 8:15 EST Heart Rate Monitored 94 bpm bpm Respiratory Rate - Anes 9 br/min br/min Systolic Blood Pressure Non-Invasive 127 mmHg mmHg Diastolic Blood Pressure Non-Invasive 77 mmHg mmHg Oxygen Saturation 98 % % cefazolin 2 gram(s) gram(s) Sodium Chloride 0.9% 100 mL mL 09/14/2023 8:10 EST Heart Rate Monitored 97 bpm bpm Respiratory Rate - Anes 0 br/min br/min Systolic Blood Pressure Non-Invasive 103 mmHg mmHg Diastolic Blood Pressure Non-Invasive 77 mmHg mmHg 09/14/2023 8:07 EST SN - Preop - CTm Pt Ready for OR/Proced 09/14/2023 7:57 09/14/2023 8:05 EST Respiratory Rate - Anes 0 br/min br/min Primary Pain Intensity Not Done: Not Appropriate at this Time (Not Done) citric acid-sodium citrate Not Done: Not Appropriate at this Time (Not Done) morphine Not Done: Not Appropriate at this Time (Not Done) Lactated Ringers Injection 1,000 mL mL 09/14/2023 8:00 EST Respiratory Rate - Anes 0 br/min br/min 09/14/2023 7:58 EST Blood Glucose, Capillary 149 mg/dL HI Temperature Temporal Artery 36.4 DegC Peripheral Pulse Rate 87 bpm (Modified) Respiratory Rate 14 br/min Systolic Blood Pressure Non-Invasive 143 mmHg HI (Modified) Diastolic Blood Pressure Non-Invasive 80 mmHg (Modified) Primary Pain Intensity 0 Pain Scale Type 0-10 Pain scale Monitor Alarms On and Limits Checked Heart Sounds ICU S1S2 Heart Rhythm Regular Respirations Unlabored Respiratory Pattern Regular Cough Dry Oxygen Therapy Room air Oxygen Saturation 95 % (Modified) Abdomen Description Non-distended, Symmetric, Soft Abdomen Palpation Non-Tender, Soft Bowel Sounds All Quadrants Present Urinary Elimination Voiding, no difficulties Skin Temperature Warm Skin Description [place] Skin Integrity Intact IV Present Present Hand Right 09/14/2023 20 gauge Peripheral IV Activity: Insert new site Peripheral IV Dressing Condition: Clean, Dry, Intact Peripheral IV Dressing Activity: Transparent dressing Peripheral IV Line Status/Patency: Flushes easily Peripheral IV Line Care: Secured with tape Peripheral IV Site Condition: No complications Peripheral IV Equipment: Extension set, PRN Adaptor Peripheral IV Number of Attempts: 1 Extremity Movement Equal Characteristics of Speech Clear Level of Consciousness Alert [place] Yes Strength All Extremities Strong Affect/Behavior Appropriate, Calm, Cooperative Orientation Oriented x 4 Allergies Yes Anesthesia Extension Set Applied Yes Rough Carpenter On Yes Consent Form Signed Yes Patient Dressed In Hospital gown, No undergarments CHG Preoperative Wash/Wipe Night before procedure, Day of procedure Preop Nasal Swab Povidone-Iodine CHG Skin Prep Completed for Eligible Surgery History & Physical Update On Chart Yes History & Physical On Chart Yes Obstructive Sleep Apnea Assess Completed Yes Orientation Assessment Oriented x 4 Positioning Repositions self Activity Status ADL Awake Sequential Compression Device right knee high applied/on Antiembolism Stocking On/Re-applied right thigh high NPO Status Maintained Standard Safety ID band on, Allergy Band on, Call device within reach, Bed in low position, Wheels locked, Upper/Half-Length side-rails up, Safety level maintained, Non-Slip footwear Demonstrates Correct Call Light Use Yes Allergy Band on and Verified Yes Blood Band on and Verified Yes Patient ID Band on and Verified Yes Implants Verified Yes Pacemaker/AICD Verified Yes Site Verified by Patient/Family Yes Anesthesia Consent Signed Yes Blood Consent Signed Yes Last Fluid Intake 09/13/2023 18:30 Last Food Intake 09/13/2023 21:30 Last Void 09/14/2023 5:00 09/14/2023 7:57 EST SN - Preop - CTm Pt in SDS Room 09/14/2023 7:12 09/14/2023 7:57 EST celecoxib 400 mg mg 09/14/2023 7:56 EST famotidine 20 mg mg 09/14/2023 7:52 EST SN - Irl - Additive BETADINE (POVIDONE IODINE) SOLUT 09/14/2023 7:51 EST SN - Irl - Irrigant Sterile Water SN - Irl - Additive IRRIGATION CHG 0.05% IRRISEPT 12/CA [id number] 09/14/2023 7:51 EST SN - Assess - LOC Alert, Awake SN - Assess - Orientation Oriented X 3 SN - Assess - Post-op Skin Integrity Intact/Dry 09/14/2023 7:46 EST SN - GCD - ASA Class 3 SN - GCD - Post-operative Diagnosis UNILATERAL PRIMARY OSTEOARTHRITIS, LEFT KNEE SN - GCD - Case Level Level 6 09/14/2023 7:45 EST SN - PTCare - Anti-thromboembolism Hermelinda Sequential Compression Device (SCD) SN - PTCare - Anti-thromboembolism Hermelinda Elastic Compression Stockings 09/14/2023 7:42 EST SN - CAt - Case Attendee SN - CAt - Case Attendee SN - CAt - Role Performed Manufacturing Engineer Paint 09/14/2023 7:41 EST SN - Proc - Anesthesia Type Spinal SN - Proc - Actual Procedure ROBOTIC ASSISTED LEFT TOTAL KNEE ARTHROPLASTY 09/14/2023 7:38 EST SN - CAt - Case Attendee SN - CAt - Case Attendee SN - CAt - Case Attendee SN - CAt - Case Attendee SN - CAt - Case Attendee SN - CAt - Case Attendee SN - CAt - Case Attendee SN - CAt - Case Attendee SN - CAt - Case Attendee SN - CAt - Case Attendee SN - CAt - Case Attendee SN - CAt - Case Attendee SN - CAt - Case Attendee SN - CAt - Case Attendee SN - CAt - Role Performed Primary Surgeon SN - CAt - Role Performed Scrub 1 SN - CAt - Role Performed Broadcast Engineer 1 SN - CAt - Role Performed GAS BRAZER SN - CAt - Role Performed Physician System Architect SN - CAt - Role Performed Atmospheric Chemist 2 SN - CAt - Role Performed Atmospheric Chemist 1 09/14/2023 7:23 EST Designated Person #1 We May Share [facility] [employer] [phone] Designated Person #1 Relationship Daughter Privacy Restrictions Requested None Status N/A Sensory Deficits Hearing deficit, left ear, Hearing deficit, right ear Diagnosed With Sleep Apnea Yes Advanced Directives Yes Advance Directive Type [place] Durable Power of Funeral Director/[place] [facility] [place] Declaration (Living Will) Advance Directive Location Unable to obtain copy Infectious Disease Symptoms Cough Infectious Disease Recent Exposure No Alcohol and Drug Use No Employee of Institutional Living No Health Care Employee No History of Exposure to TB No History of Positive Chest X-Ray for TB No History of Positive TB Skin Test No Homeless No Known Immunosuppression No Recent Immigrant No Resident of Institutional Living No Bloody Sputum No Fatigue No Fever No Loss of Appetite No Night Sweats No Persistent Cough > 3 Weeks No Weight Loss No Patient Aware Date/Time Of Surgery Yes Pre-Op Patient Education NPO after midnight, No makeup, No jewelry, Aware of surgery location, Pre-op education done, 1 bottle CHG wash with instructions given, Instructed to take ordered medications, Instructed to bring cpap machine to hospital, Total Joint Replacement/Colorectal Book Given, SSI prevention handout given, Anesthesia block education provided SN - Preprocedure Comments Spoke with patient, Verbalizes/Nonverbally indicates understanding Barriers to Learning None evident Teaching Method Explanation Preferred Spoken Language Cypriot Preferred Written Language Cypriot Teaching Evaluation No further teaching needed Total Joint Book Given Yes Safety Brochure Information Reviewed Unable to complete [facility] Video Viewed No Information Given by Patient Patient's Current Physicians Patient's Current Physicians Discharge To, Anticipated Home independently Prev Test Positive/Diagnosis w/COVID-19 Yes Previous COVID-19 Positive Date 2021 Current Quarantine/Isolated any Illness No Any Contact with Sick Animals/Birds No Traveled Anywhere in Last 30 Days No Lost Weight Unintentionally Recently No Eat Poorly Due to Decreased Appetite No Total MST Score 0 N/A Personal Devices, Patient Valuables Glasses Anesthesia/Transfusions Prior anesthesia Admission Note-Nursing Same Day Patient History . Assessment and Plan [place] [employer] Anesthesiologists (ASA) physical status classification: Class III. Anesthetic Preoperative Plan Anesthetic technique: Spinal. Postoperative pain management: adductor. Informed consent: signed by patient. Digitally Signed by DEVI FAJARDO on 09/14/2023 08:30 AM [facility]12-11-2023 Miscellaneous Notes* Telephone Encounter - Klaudia Romero LPN - 09/06/2023 3:14 PM EST Faxed completed form and office note back at this time. * Telephone Encounter - Addie Dupree LPN - 09/06/2023 2:51 PM EST [facility] called and they did not received back the clearance form from 08-30-23. Please review and advise [facility] back. PH: [phone] FAX: [phone]. Addie Dupree LPN [facility] Miscellaneous Notes* Telephone Encounter - Yenifer Gonsalez MD - 09/04/2023 12:02 PM EST Noted. Wonder when switched back, but no matter--sent RX The following approved medication requests have been transmitted electronically. Requested Prescriptions Signed Prescriptions Disp Refills apixaban (ELIQUIS) 5 mg tab(s) 180 tablet 3 Sig: Take 1 tablet by mouth two times a day. Authorizing Provider: YENIFER GONSALEZ MD * Telephone Encounter - Addie Dupree LPN - 09/04/2023 9:02 AM EST Spoke with pt and she is taking 1 Eliquis in the am and 1 in the pm. Please send a correct prescription to the pharmacy. Addie Dupree LPN * Telephone Encounter - Yenifer Gonsalez MD - 09/03/2023 1:45 AM EST Check with patient when cardiology increased Eliquis then check [facility] consult/progress note Not found under scanned documents * Telephone Encounter - Atiya Reyna RN - 08/30/2023 4:09 PM EST Tricia from [facility] calls and states that pharmacy needs more information as to why patient's Eliquis dose was changed. Please review and advise, Atiya Reyna RN documented in [facility] History of Present illness Narrative* Yenifer Gonsalez MD - 08/30/2023 1:24 PM EST This note was created using NoteWriter. Subjective Elizabeth Rodrigez is a 78 year old female. HISTORY Elizabeth Rodrigez is a 78 year old lady here for pre-op evaluation as requested by Dr. Yunior Elaine. Elizabeth Rodrigez has surgery scheduled on 09/14/23. for left TKA at [facility]. Has severe pain from knee arthritis. Gimp Tacker--Dr. Shell last seen 01/22/2023 in consultation while in hospital. Did see Eleanor at [facility] for preop evaluation already. Did note that cardiology increased dose of Eliquis. Also saw neurologist for preop evaluation. Cleared by above. Also, told by preop to stop Eliquis 3 days prior to surgery. Had PAT done at [facility] in [place]. Anesthesiologist already addressed question of whether had a significant reaction to lidocaine. States was told not allergic to Novacaine. Not sure aboutLidocaine. Can check with dentist. Does have LW and HCDPOA. Drop off copy. Surrogate decision maker are daughter (Franca Orozco) and granddaughter (Ashlee Dupree) Labs done today. Noted had flu like illness 2 weeks ago--pretty much resolved. Fevers, chills, fatigue, runny nose and congestion (noted that slowly getting smell and taste back since had COVID in 2019). Mild sinus allergy symptoms with pressure sinuses and behind eyes but responded to Flonase. PAST MEDICAL HISTORY Diagnosis Date Allergic rhinitis, cause unspecified Allergic rhinitis Carpal tunnel syndrome Depressive disorder, not elsewhere classified Disorder of bone and cartilage, unspecified Dysmetabolic syndrome X Dyspepsia and other specified disorders of function of stomach Dyspepsia Generalized anxiety disorder Anxiety, Generalized Generalized osteoarthrosis, involving hand Hemorrhage of gastrointestinal tract, unspecified Lichen sclerosus saw Dr. Jarvis Migraine without aura Obstructive sleep apnea (adult) (pediatric) uses C-PAP Other specified cardiac dysrhythmias(427.89) Panic disorder without agoraphobia Pure hypercholesterolemia PAST SURGICAL HISTORY Procedure Laterality Date BIOPSY BREAST OPEN INCISIONAL Bilateral Bx of breast, incisional COLONOSCOPY FLX DX W/COLLJ SPEC WHEN PFRMD 03/24/06 SPLENECTOMY TOTAL SEPARATE PROCEDURE 05/2018 Splenectomy TOTAL ABDOMINAL HYSTERECT W/WO RMVL TUBE OVARY Hysterectomy, FIGUEROA ALLERGIES Allergen Reactions Epinephrine Other: See Comments Tachycardia, becomes incoherent Penicillins Rash Percocet [Oxycodone* Vomiting It makes her feel drunk Xylocaine [Lidocain* Other: See Comments tachycardia--Not really sure if had reaction to this or if was the epinephrine Current Outpatient Medications Medication Sig cyanocobalamin (VITAMIN B-12) 1,000 mcg tab Take 1,000 mcg by mouth once daily. HAIR, SKIN AND NAILS, BIOTIN, ORAL Take 1 capsule by mouth once daily. VITAMIN D-3 50 mcg (2,000 unit) cap Take 1 capsule by mouth once daily acetaminophen (TYLENOL EX STR ARTHRITIS PAIN ORAL) Take by mouth as needed. meclizine (ANTIVERT) 25 mg tab Take 1 tablet by mouth every 6 hours as needed (dizziness/vertigo). PARoxetine (PAXIL) 20 mg tablet Take 1 tablet by mouth twice daily. rosuvastatin (CRESTOR) 5 mg tablet Take 2 tablets by mouth once daily. As directed metFORMIN ER (GLUCOPHAGE XR) 500 mg 24 hr tablet Take 1 tablet by mouth twice daily before meals. or as directed alendronate (FOSAMAX) 70 mg tablet Take 1 tablet by mouth one time a week. Take with a full glass of water, on an empty stomach; do NOT lie down for 30minutes. verapamil 80 mg tablet Take 1 tablet by mouth twice daily. diclofenac (VOLTAREN ARTHRITIS PAIN) 1 % topical gel 2 gram up to 4 times a day for shoulder joints; 4 gram up to 4 times a day for knee joints. No more than 32 grams total per day ELIQUIS 5 mg tab(s) Take 1 tablet by mouth twice daily. (Patient taking differently: Take 5 mg by mouth two times a day. Taking two 5mg tablets equaling 10mg one in the AM one in the PM) clobetasol (TEMOVATE) 0.05 % cream Apply 1 application to affected area once daily as needed. acyclovir (ZOVIRAX) 400 mg tablet Take 1 tablet by mouth twice daily. gabapentin (NEURONTIN) 300 mg capsule Take 1 capsule by mouth three times daily. CPAP Initiate CPAP @ 12 cm of water with humidification. Mask (per patient preference) optional chin strap (if indicated) , filters, tubing, humidifier and lifetime supplies. albuterol HFA (PROVENTIL HFA, VENTOLIN HFA) 90 mcg/actuation inhaler INHALE 2 PUFFS BY MOUTH UP TO 4 TIMES DAILY NEEDED fluticasone (FLONASE) 50 mcg/actuation nasal spray Use 2 Sprays in each nostril once daily. for sinus drainage and genstion COMPOUNDED PRESCRIPTION CPAP mask COMPOUNDED PRESCRIPTION CPAP mask--Mirage FX with formal mask fitting pumpkin seed extract-soy germ (AZO BLADDER CONTROL) 300 mg cap Take 1-3 capsules by mouth once daily. (usually just needs 1 capsule daily) (Patient not taking: Reported on 05/17/2023) No current facility-administered medications for this visit. FAMILY HISTORY Problem Relation Age of Onset Alcohol/Drug Father Heart disease Father Colon Cancer Paternal Grandfather Colon Cancer Maternal Grandmother Arthritis Sister other (mvp) Sister other (palpitations) Mother Alcohol/Drug Brother Mental illness Brother Alcohol/Drug Sister Mental illness Sister Heart disease Sister No Known Problems Sister other (Hep C) Sister No Known Problems Sister Mental illness Brother Social History Tobacco Use Smoking status: Never Smokeless tobacco: Never Vaping Use Vaping Use: Never used Substance Use Topics Alcohol use: Yes Comment: She drinks approximately 1 sis per month Drug use: No Review of Systems Constitutional: Negative. HENT: Positive for sinus pain (Resolving sinus pain with using Flonase.). Eyes: Dry eyes--uses drops. Pressure behind eyes better with using Flonase Respiratory: Negative. No problems with asthma flaring up for years Cardiovascular: Negative. Gastrointestinal: Tendency to IBS diarrhea, not constipation Genitourinary: Negative. Musculoskeletal: Positive for arthralgias (Knees--reason needs TKAs). Skin: SKs noted--one on mid upper back red from scratching; and one on lower left stomach. Objective BP 118/68 Pulse 100 Temp 36.4 C (97.5 F) Resp 18 Ht 153.5 cm (5' 0.43) Wt 80.3 kg (177 lb) SpO2 96% BMI 34.07 kg/m Last 5 Encounter Wt Readings: Date: Wt: 08/30/2023 80.3 kg (177 lb) 02/26/2023 78 kg (172 lb) 02/04/2023 77.5 kg (170 lb 12.8 oz) 01/26/2023 77.6 kg (171 lb) 01/02/2023 78 kg (172 lb) No waist measurement recorded Estimated body mass index is 34.07 kg/m as calculated from the following: Height as of this encounter: 153.5 cm (5' 0.43). Weight as of this encounter: 80.3 kg (177 lb). Last 5 Encounter BP Readings: Date: BP: 08/30/2023 118/68 02/26/2023 122/68 02/04/2023 144/86 01/26/2023 126/70 01/02/2023 114/60 Physical Exam Vitals reviewed. Constitutional: General: She is not in acute distress. Appearance: Normal appearance. She is well-developed. She is obese. She is not ill-appearing or toxic-appearing. HENT: Head: Normocephalic and atraumatic. Right Ear: External ear normal. Left Ear: External ear normal. Nose: Nose normal. Eyes: Conjunctiva/sclera: Conjunctivae normal. Neck: Thyroid: No thyromegaly. Cardiovascular: Rate and Rhythm: Normal rate and regular rhythm. Pulses: Normal pulses. Heart sounds: Normal heart sounds. No murmur heard. No friction rub. No gallop. Pulmonary: Effort: Pulmonary effort is normal. Breath sounds: Normal breath sounds. Abdominal: General: Bowel sounds are normal. There is no distension. Palpations: Abdomen is soft. There is no mass. Tenderness: There is no abdominal tenderness. Musculoskeletal: General: No deformity. Normal range of motion. Lymphadenopathy: Cervical: No cervical adenopathy. Skin: General: Skin is warm and dry. Coloration: Skin is not jaundiced or pale. Findings: No erythema, lesion or rash. Comments: SKs noted--one on mid upper back red from scratching--pink with slight scale; and one on lower left stomach--hyperpigmented, not irritated. Neurological: General: No focal deficit present. Mental Status: She is alert and oriented to person, place, and time. Cranial Nerves: No cranial nerve deficit. Sensory: No sensory deficit. Motor: No abnormal muscle tone. Coordination: Coordination normal. Deep Tendon Reflexes: Reflexes normal. Psychiatric: Attention and Perception: Attention and perception normal. Mood and Affect: Mood and affect normal. Speech: Speech normal. Behavior: Behavior normal. Thought Content: Thought content normal. Cognition and Memory: Cognition normal. Judgment: Judgment normal. Labs drawn today. Component Latest Ref Rng & Units 12/22/2021 06/24/2022 08/28/2022 08/30/2023 Protein, Total 6.3 - 8.0 g/dL 7.3 7.4 Albumin 3.9 - 4.9 g/dL 4.3 4.2 Calcium 8.5 - 10.2 mg/dL 9.6 9.6 10.1 Bilirubin, Total 0.2 - 1.3 mg/dL 0.2 0.2 Alkaline Phosphatase 34 - 123 U/L 93 63 AST 13 - 35 U/L 25 22 ALT 7 - 38 U/L 22 19 Glucose 74 - 99 mg/dL 78 68 (L) 124 (H) BUN 7 - 21 mg/dL 13 16 10 Creatinine 0.58 - 0.96 mg/dL 0.85 0.75 0.81 Sodium 136 - 144 mmol/L 135 (L) 139 137 Potassium 3.7 - 5.1 mmol/L 4.8 4.0 4.4 Chloride 97 - 105 mmol/L 99 101 101 CO2 22 - 30 mmol/L 25 26 23 Anion Gap 9 - 18 mmol/L 11 12 13 eGFR >=60 mL/min/1.73m 72 83 75 WBC 3.70 - 11.00 k/uL 9.29 11.68 (H) RBC 3.90 - 5.20 m/uL 4.79 4.53 Hemoglobin 11.5 - 15.5 g/dL 14.3 14.2 Hematocrit 36.0 - 46.0 % 45.7 45.0 MCV 80.0 - 100.0 fL 95.4 99.3 MCH 26.0 - 34.0 pg 29.9 31.3 MCHC 30.5 - 36.0 g/dL 31.3 31.6 RDW-CV 11.5 - 15.0 % 15.9 (H) 15.8 (H) Platelet Count 150 - 400 k/uL 355 388 MPV 9.0 - 12.7 fL 11.4 11.4 Absolute nRBC <0.01 k/uL <0.01 <0.01 Cholesterol, Total <200 mg/dL 249 (H) 141 Triglyceride <150 mg/dL 199 (H) 161 (H) HDL Cholesterol >39 mg/dL 41 43 Non HDL Cholesterol <130 mg/dL 208 (H) 98 Fasting Time hrs 6 12 VLDL Cholesterol <30 mg/dL 40 (H) 32 (H) TC:HDL Ratio <5.10 6.07 (H) 3.28 LDL Cholesterol <100 mg/dL 168 (H) 66 LDL:HDL Ratio <2.54 4.10 (H) 1.53 Total Cholesterol, Nonfasting <200 mg/dL 192 Triglycerides, Nonfasting <150 mg/dL 198 (H) HDL Cholesterol, Nonfasting >39 mg/dL 49 LDL Cholesterol, Nonfasting <100 mg/dL 103 (H) Non HDL Cholesterol, Nonfasting <130 mg/dL 143 (H) VLDL Cholesterol, Nonfasting <30 mg/dL 40 (H) Total Chol/HDL Ratio, Nonfasting <5.10 mg/dL 3.92 LDL/HDL Ratio, Nonfasting <2.54 mg/dL 2.10 Creatinine, Ur Random (UCRR) 20.0 - 300.0 mg/dL 175.7 127.4 Albumin, Urine Random mg/L 24.1 54.7 Albumin/Creat Ratio <30 mg/g 14 43 (H) Hemoglobin A1C 4.3 - 5.6 % 6.7 (H) 6.4 (H) 6.5 (H) Estimated Average Glucose mg/dL 146 137 140 TSH 0.270 - 4.200 mIU/L 3.490 Vitamin D 25 Hydroxy 31.0 - 80.0 ng/mL 34.9 50.4 Assessment and Plan Encounter Diagnosis ICD-10-CM 1. Preop exam for internal medicine Z01.818 2. Controlled type 2 diabetes mellitus without complication, without long-term current use of insulin (HCC) E11.9 Well controlled. Continue present management 3. PAF (paroxysmal atrial fibrillation) ([facility]) I48.0 Stable on current meds; continue management per cardiology 4. Mixed hyperlipidemia E78.2 Lipids much improved. Continue present management. 5. Encounter for immunization Z23 INFLUENZA VACCINE, PRSV FREE, AGE 65+ YR, HIGH DOSE, QUADRIVALENT(FLUZONE HIGH-DOSE) ArthaYantra COVID-19 VACCINE ( SEASON) AGE 12+ YR Patient without medical contraindications for planned surgical procedure. Patient states that she has received surgical clearance from her funds transfer clerk and neurologist. She is optimized for planned surgical procedure. Noted that has already had PAT and was given instructions on her medication perioperatively, including when to hold Eliquis as noted in HPI. Will communicate with Dr. Elaine via fax of this H&P and signed Request for Surgical Clearance. Note that this was supposed to be her routine yearly exam but will postpone that till another appointment since needed to do her preop evaluation.She is doing fine on current meds and management of chronic medical conditions. Above issues addressed with patient. Patient involved in shared decision making for management of medical issues. History and medications reviewed. Epic updated as needed Refills and/or prescriptions taken care of and meds adjusted as indicated after reviewed history, exam and labs. Health Maintenance reviewed. Updated record and/or ordered tests as recorded. Encouraged on efforts at healthy diet and regular exercise and adequate sleep. Yenifer Gonsalez MD documented in this encounterSt[facility] Note ORIGINAL EXAMINATION: CT OF THE LEFT KNEE WITHOUT VZUFDBAD63/22/2023 11:40 am TECHNIQUE: CT of the left knee was performed without the administration of intravenous contrast. Multiplanar reformatted images are provided for review. Automated exposure control, iterative reconstruction, and/or weight based adjustment of the mA/kV was utilized to reduce the radiation dose to as low as reasonably achievable. COMPARISON: None HISTORY: ORDERING SYSTEM PROVIDED HISTORY: Reason for Exam: Varus deformity, LEFT KNEE. Chronic left knee pain. FINDINGS: No acute fracture or dislocation. There is moderate medial and mild lateral tibiofemoral joint space narrowing. There is mild patellofemoral narrowing. Subchondral cystic changes are seen at the femoral condyle, tibial plateau, and posterior articular surface of the patella. Marginal osteophyte formation around the knee is noted. Mild degenerative changes are seen in the left hip, pubic symphysis, and the left ankle. Degenerative changes are also present in the partially visualized portions of the right knee. Small fluid is seen within the suprapatellar bursa and patellofemoral joint. No acute soft tissue abnormality. IMPRESSION: 1. No acute osseous abnormality. 2. Tricompartmental degenerative changes; moderate in severity at the medial tibiofemoral joint space. I have personally reviewed the images of this examination and agree with the resident's findings and interpretation. Interpreted by: Martin Nunez MD Preliminary Report By: Lupillo Mcleod Electronically signed By Martin Nunez MD Dictated Date: 08/18/2023 11:41:43 AM Prelim Date: 08/18/2023 1:17:24 PM Sign Date: 08/18/2023 1:17:24 PM Ordering Provider: [facility]11-21-2023 Miscellaneous Notes* Telephone Encounter - Shena Lemus RN - 08/17/2023 9:05 AM EST Spoke with pt on the phone regarding Cardiology clearance. [facility] stated that [facility] her for [facility]. She doesn't remember exactcardiologists name, but knows the PA, Eleanor filled out the paperwork for her. documented in this encounterSt. [facility] [facility] Miscellaneous Notes* Telephone Encounter - Yenifer Gonsalez MD - 07/27/2023 1:02 AM EDT Okayed * Telephone Encounter - Addie Dupree LPN - 07/26/2023 4:05 PM EDT Patient has been identified by name and date of : Yes, Provider Dr. Gonsalez Date 07/26/23 Time 4:05 pm Pharmacy phones for refill(s): Requested Prescriptions Pending Prescriptions Disp Refills VITAMIN D-3 50 mcg (2,000 unit) cap [Pharmacy Med Name: Vitamin D 2000 UNIT Oral Capsule] 90 capsule 0 Sig: Take 1 capsule by mouth once daily Date of last office visit in primary care: 02/26/2023 Date of next office visit in primary care: 08/30/2023 Last 2 Encounter Wt Readings: Date: Wt: 02/26/2023 78 kg (172 lb) 02/04/2023 77.5 kg (170 lb 12.8 oz) Previous labs/tests for medication: Not applicable Thank you. Addie Dupree LPN. documented in this encounterSt. [facility] [facility]09-[facility] History of Present illness Narrative* Amber Wilson DO - 06/04/2023 6:37 PM EDT Virtualist Progress Note Triage Call I have communicated my name and active licensure. The patient's identity and physical location wereverified at the time of this visit. Either the patient or their legal member services representative has been informed of the risks and benefits of -- and alternatives to -- treatment through a remote evaluation andconsents to proceed with the evaluation remotely. Triage source: Triage Call (Nurse [place] Manager, Medical Care at Home - [facility] Triage, [facility] Triage, [facility] Phone Triage) Was patient downgraded (i.e. disposition other than go to the ED was advised)? Yes Mode of contact: Audio only History/Physical Exam: 77 y/o female presents with palpitations. She has history of afib and earlier today she was taking a walk for exercise and she developed palpitations and sweating. This has resolved but her HR is still running around 110. No symptoms. She is coming due for her next dose of verapamil. Rec that she take her verapamil as scheduled and follow up with her funds transfer clerk on Wednesday. If symtpoms worsen, call funds transfer clerk or pcp sooner Nurse Triage Disposition (If call is from Home Care, [facility] nurse triage, or an [facility] Care, the disposition is Go to ED Now): Go to ED Now (or PCP Triage) Virtualist Recommended Disposition: See Provider > 2 days Signed in as Primary Virtualist, Secondary Virtualist, or [facility] Telehealth provider: Secondary documented in this encounterSt. [facility] [facility]09-06-[facility]23 Miscellaneous Notes* Telephone Encounter - Dina Alston RN - 06/02/2023 1:13 PM EDT Patient incontinent of liquid stool, 4 days now. Moderate. Losing weight, feeling weak. Protocol recommends see provider in 24 hours. Patient agreeable. Reason for Disposition [1] MODERATE diarrhea (e.g., 4-6 times / day more than normal) AND [2] present > 48 hours (2 days) Answer Assessment - Initial Assessment Questions 1. DIARRHEA SEVERITY:Moderate. Incontinent (not normally incontinent) of stools 4 days straight now. 2. ONSET: 4 days ago. 3. BM CONSISTENCY: Liquid and small chunks. 4. VOMITING: No 5. ABDOMINAL PAIN: Mild abdominal pressure. Pressure when have to go to bathroom. Comes and goes- only happens when she eats. 6. ABDOMINAL PAIN SEVERITY: Mild 7. ORAL INTAKE: 6 glasses in last 24 hours. 8. HYDRATION: No dizziness. Weakness. No energy. Voiding fine. New weight loss- rings fell off lastnight- fingers are no longer swollen, which they are usually swollen d/t arthritis. 9. EXPOSURE: No exposure. Saw a concert Sat night with friends. Doesn't think she ate any spoiled food. 10. ANTIBIOTIC USE: No recent AB's. 11. OTHER SYMPTOMS: See above. No fever. No blood in stool. 12. : No. Post [place]. Protocols used: [id number] documented in this encounterSt. [facility] [facility]09-[facility] History of Present illness Narrative* Michelle Pacheco APRN.BEER COOLER - 05/28/2023 3:00 PM EDT Images from the original note were not included. [facility] [place] Follow-up Visit Follow-up note May 28, 2023 HPI: Ms. Rodrigez presents today for a follow-up visit. Per her previous visit on 02/04/23: I63.9 Cerebrovascular accident (CVA), unspecified mechanism (HCC) Comment: Pt was at home on 12/16/22 when she experienced sudden vertigo and vision loss. EMS was called and she was taken to ED where she received thrombolytic therapy. Symptoms improved with NIH on DC 0. MRI brain completed following administration and no infarct noted. She was noted to have afib on monitor and therefore she was started on Eliquis. She continues to take Crestor for lipid management. Echo completed during admission as well and she continues to follow with cardiology. On exam today she is noted to have L visual field cut but no other remaining symptoms. Recommendations at this time include goal BP <140/90 and BS <140. Recommend LDL <70 for stroke prevention. Encouraged medication compliance. Follow up with PCP for htn, hld, and BG management. Recommend adequate exercise/physical activity within limitations. R26.81 Gait instability M48.061 Spinal stenosis of lumbar region, unspecified whether neurogenic claudication present R42 Vertigo R26.89 Balance disorder R29.6 Frequent falls Comment: Hx of balance concerns and frequent falls over the past few years. Past testing included CT of brain which was unremarkable. In interim, MRI of brain completed noting moderate chronic microvascular ischemia but otherwise negative for etiology (NPH, stroke) of balance concerns and falls. XRof lumbar spine also completed with finding of L1 compression deformity and multilevel disc space na rrowing. She has since gone to physical therapy with some improvement of symptoms (both balance/strength and vertigo). Reports only one fall within the past year. Continues to use cane for stability.She has more recently been seen by spine medicine and continues to follow for additional testing. Recommend continued follow up with spine medicine. May consider return to PT if vertigo symptoms return. Recommend continuing to use assistive device to prevent and avoid falls and discussed the importance of this given the fact she is now taking Eliquis. M79.601 Pain of right upper extremity Comment: Pt reporting pain radiating throughout R UE. Symptoms are present in first 3 digits of R hand but she is uncertain if they radiate to shoulder or neck. She has seen spine medicine who ordered cervical XR as well as EMG. EMG not yet completed at this time. Exam findings with pinprick decreased throughout all fingers and negative Tinel's over R wrist and elbow. Agree with proceeding with EMG/NCV to further differentiate etiology of symptoms. Pending results may consider consult to orthopedics versus follow-up with spine medicine. No new stroke sx since January. Denies new vision changes, speech changes. Still taking Crestor and Eliquis. BP has been good. Denies abnormal BG; taking metformin. No falls in the past six months. Has a few times she was unstable but nothing concerning. L arm and knee are bothering her. States she has a hx of arthritis and L arm hurts all the time. Holding the steering wheel causes pain. Has a tremor in her wrist. States once a while tremor will be in her arm. Happens at rest. Present in arm for a few weeks. No family hx of tremor.Denies termor in legs or head. Smell and taste are coming back since COVID. Can act out dreams/yell out. States she does not sleep well. She is using a CPAP. Sleeps better with PAP. Feels like L knee can freeze when she stands. No exposure to heavy metals. Feels like she has difficulty walking due to L knee. Feet feel heavy. Mother had dementia. Uncle with PD. Did not see spine med since last appointment. States she chickened out. Did not have EMG. Has been sweating more often as of late. Will be seeing PCP in August. Feels dizzy daily but states this is not severe like in the past. Does not do PT exercises at home d/t knee pain. Had injection two weeks ago. Considering surgical intervention. Some difficulty initiating urine stream. PAST MEDICAL HISTORY Diagnosis Date Allergic rhinitis, cause unspecified Allergic rhinitis Carpal tunnel syndrome Depressive disorder, not elsewhere classified Disorder of bone and cartilage, unspecified Dysmetabolic syndrome X Dyspepsia and other specified disorders of function of stomach Dyspepsia Generalized anxiety disorder Anxiety, Generalized Generalized osteoarthrosis, involving hand Hemorrhage of gastrointestinal tract, unspecified Lichen sclerosus saw Dr. Jarvis Migraine without aura Obstructive sleep apnea (adult) (pediatric) uses C-PAP Other specified cardiac dysrhythmias(427.89) Panic disorder without agoraphobia Pure hypercholesterolemia PAST SURGICAL HISTORY Procedure Laterality Date BIOPSY BREAST OPEN INCISIONAL Bilateral Bx of breast, incisional COLONOSCOPY FLX DX W/COLLJ SPEC WHEN PFRMD 03/24/06 SPLENECTOMY TOTAL SEPARATE PROCEDURE 05/2018 Splenectomy TOTAL ABDOMINAL HYSTERECT W/WO RMVL TUBE OVARY Hysterectomy, FIGUEROA Current Outpatient Medications on File Prior to Visit Medication Sig meclizine (ANTIVERT) 25 mg tab Take 1 tablet by mouth every 6 hours as needed (dizziness/vertigo). Cholecalciferol, Vitamin D3, 50 mcg (2,000 unit) cap Take 1 capsule by mouth once daily. PARoxetine (PAXIL) 20 mg tablet Take 1 tablet by mouth twice daily. rosuvastatin (CRESTOR) 5 mg tablet Take 2 tablets by mouth once daily. As directed metFORMIN ER (GLUCOPHAGE XR) 500 mg 24 hr tablet Take 1 tablet by mouth twice daily before meals. or as directed alendronate (FOSAMAX) 70 mg tablet Take 1 tablet by mouth one time a week. Take with a full glass of water, on an empty stomach; do NOT lie down for 30minutes. verapamil 80 mg tablet Take 1 tablet by mouth twice daily. diclofenac (VOLTAREN ARTHRITIS PAIN) 1 % topical gel 2 gram up to 4 times a day for shoulder joints; 4 gram up to 4 times a day for knee joints. No more than 32 grams total per day ELIQUIS 5 mg tab(s) Take 1 tablet by mouth twice daily. (Patient taking differently: Take 5 mg by mouth twice daily. Taking two 5mg tablets equaling 10mg one in the AM one in the PM) clobetasol (TEMOVATE) 0.05 % cream Apply 1 application to affected area once daily as needed. acyclovir (ZOVIRAX) 400 mg tablet Take 1 tablet by mouth twice daily. gabapentin (NEURONTIN) 300 mg capsule Take 1 capsule by mouth three times daily. CPAP Initiate CPAP @ 12 cm of water with humidification. Mask (per patient preference) optional chin strap (if indicated) , filters, tubing, humidifier and lifetime supplies. albuterol HFA (PROVENTIL HFA, VENTOLIN HFA) 90 mcg/actuation inhaler INHALE 2 PUFFS BY MOUTH UP TO 4 TIMES DAILY NEEDED fluticasone (FLONASE) 50 mcg/actuation nasal spray Use 2 Sprays in each nostril once daily. for sinus drainage and genstion pumpkin seed extract-soy germ (AZO BLADDER CONTROL) 300 mg cap Take 1-3 capsules by mouth once daily. (usually just needs 1 capsule daily) COMPOUNDED PRESCRIPTION CPAP mask COMPOUNDED PRESCRIPTION CPAP mask--Mirage FX with formal mask fitting No current facility-administered medications on file prior to visit. Social History Tobacco Use Smoking status: Never Smokeless tobacco: Never Vaping Use Vaping Use: Never used Substance Use Topics Alcohol use: Yes Comment: She drinks approximately 1 sis per month Drug use: No ALLERGIES Allergen Reactions Epinephrine Other: See Comments Tachycardia, becomes incoherent Novocaine [Other] tachycardia Penicillins Rash Percocet [Oxycodone* Vomiting It makes her feel drunk Xylocaine [Lidocain* tachycardia Review of Systems: ENT: denies loss of hearing, vertigo Vision: denies blurring vison, double vision/diplopia Cardiopulmonary: denies chest pain, palpitations Respiratory: denies shortness of breath GI: denies recent nausea, vomiting, diarrhea, constipation : denies + incontinence (urgency and leaking) Musculoskeletal: denies + weakness (L leg), + joint ache/pain Back/spine: denies low back or cervical pains Neuro: denies + tremors, loss of feeling, dizziness, seizure, blackout, + paresthesia, facial paresthesia, facial weakness, difficulty in speech, slurring of words, dysarthria, dysphagia, memory loss, headache Physical Exam: Patient is alert and in no distress. Dress is appropriate. Mood is appropriate Breathing appears regular and unstressed Neurologic examination: Cognitively intact. No deficits. No formal MMSE performed. CN: Pupils equal and reactive to light, extraocular movements intact with no nystagmus, L eye L visual field cut, face is symmetric with no facial droop, facial sensation intact bilaterally to light touch. V1-3, hearing intact bilaterally, symmetric evaluation of the soft palate, tongue is midline with no deviation, shoulder shrug is symmetric. Motor exam shows 5/5 strength symmetric through the upper and lower extremities in all groups tested. Sensory intact to light touch in all extremities. Per previous appointment: Pinprick sensation decreased throughout all fingers of both hands. Deep tendon reflexes are symmetric at the biceps, brachioradialis, triceps, patella, and achilles bilaterally. Coordination: No dysmetria on finger to nose. Low frequency, low amplitude tremor to L hand with arms outstretched. No drift seen. Gait normal in stance and pattern. CARMENZA of pronation and supination, finger and hand tapping intact. Toe tapping intact. No rigidity. Normal station and stride. Able to tandem. Able to heel and toe walk. Good arm swing and 4 step turn. Rises from chair well. Labs/studies: MRI Brain 12/17/22: [facility] [address] [place] [address] Brain without Contrast MR#: [id number] Acct: [id number] Name: ELIZABETH RODRIGEZ Rep #: [id number] : 1945 F 77 From: Pablo Mix MD PCP: Dr. Yenifer Gonsalez MD Status: ADM IN Study: Brain without Contrast Date of Exam: 12/17/22 Exam# [id number] Ordering Dr: Kitty Brooks MD STUDY: MRI BRAIN WITHOUT CONTRAST REASON FOR EXAM: Female, 77 years old. CVA -- MRI 24 hours after IV thrombolytic administration TECHNIQUE: Standardized multiplanar fat and water weighted pulse sequences were obtained. COMPARISON: 12/16/2022 HEMISPHERES, CEREBELLUM AND BRAINSTEM: 1. The cerebral parenchyma, ventricular system, subarachnoid spaces have normal configuration. There is a normal gyral pattern. There is normal landa/white differentiation. No midline shift.. 2. Mild subcortical and periventricular white matter FLAIR hyperintensities compatible with chronic microvascular ischemic change.. 3. No intraparenchymal mass, hemorrhage, or acute territorial infarct. 4. The cerebellum, brainstem, basilar and suprasellar cisterns have normal appearance. No Chiari malformation. PITUITARY: Infundibulum and pituitary have normal configuration. Midline structures appear normal. CSF SPACES: Appropriate for age. No hydrocephalus. Basal cisterns are patent. VESSELS: 1. There are normal flow voids noted in the great vessels at the skull base ORBITS AND PARANASAL SINUSES: 1. Bilateral ocular lens replacements. 2. Paranasal sinuses are clear. BONY ELEMENTS: Bony elements of the cranial vault, facial skeleton and skull base have normal appearance. SCALP AND SOFT TISSUES: Normal appearance of the soft tissues of the scalp and the visualized face MRI/Brain without Contrast IMPRESSION: 1. No intracranial mass, hemorrhage, or acute territorial infarct. 2. No radiographically significant sinus disease. CTA Head/Neck 12/16/22: FINDINGS: Normal bilateral petrous carotid arteries. Normal right cavernous carotid artery with a normal supraclinoid bifurcation. Normal left cavernous carotid artery with a normal supraclinoid bifurcation. Normal right A1 segments of the anterior cerebral artery. There is hypoplastic development of the left A1 segment of the anterior cerebral arteries with an atretic but intact artery. Normal intact anterior communicating artery (ACOM). Normal bilateral A2 segments of the anterior cerebral arteries. Normal right M1 and M2 segments of the middle cerebral arteries, with a normal M1 bifurcation. Normal left M1 and M2 segments of the middle cerebral arteries, with a normal M1 bifurcation. There is non-visualization of the right posterior communicating artery (PCOM). Normal left posterior communicating artery (PCOM). Normal bilateral vertebral arteries. Normal basilar artery with a normal basilar bifurcation. The visualized bilateral superior cerebellar (SCA) arteries are normal. Normal P1, P2 and visualized P3 segments of the right posterior cerebral artery. There is hypoplasia of the P1 segment of the left posterior cerebral artery. The P2 and P3 segments are supplied via the patent posterior communicating artery. There is no demonstrated aneurysm of the [place]. There is no demonstrated abnormality of the visualized brain. AORTIC ARCH: Atherosclerotic changes of the aortic arch without visualized dissection or aneurysm. Normal origins of the brachiocephalic, left common carotid, and left subclavian arteries. RIGHT CAROTID ARTERIES: Tortuosity of the right common carotid artery (CCA). Normal right common carotid bulb. Normal origin of the right internal carotid (ICA) artery without a hemodynamically significant stenosis. Tortuosity of the visualized cervical portion of the right internal carotid artery. Normal origin of the right external carotid artery (ECA). LEFT CAROTID ARTERIES: Tortuous left common carotid artery (CCA). Minimal calcific plaque at the carotid bulb with minimal stenosis. Normal origin of the left internal carotid (ICA) artery without a hemodynamically significant stenosis. Tortuous visualized cervical portion of the left internal carotid artery. Normal origin of the left external carotid artery (ECA). VERTEBRAL ARTERIES: There is enhancement within the bilateral vertebral arteries with a small right vertebral artery, and a dominant left vertebral artery. 12/16/221905 Date cc: Dr. Yenifer Gonsalez MD; Dr. Alejandro Chaudhari MD * Signed ADDENDUM by Dr. Jj Puente DO on 12/16/[address]/STROKE CTA Head AND Neck W/Con IMPRESSION: 1. Tortuous carotid arteries was minimal atherosclerotic changes at the left carotid bulb. There is no significant stenosis. 2. Normal vertebral arteries. 3. 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 The A2 segment is supplied via the patent anterior communicating artery. 4. Hypoplastic P1 segment of the left posterior cerebral artery. The posterior artery is supplied via the patent posterior communicating artery. 5. No evidence of aneurysm or large vessel occlusion. Echo 12/17/22: Interpretation Summary The left ventricular ejection fraction is 65 %. Diastolic function is indeterminate. The left atrium is severely enlarged. Mild focal mitral valve calcification. Mild (1+) aortic valve insufficiency. Mildly dilated aortic root. MRI Spine Report MRI THORACIC SPINE WO IVCON Exam End: 11/03/2022 3:19 PM (Final result) Narrative: * * *Final Report* * * DATE OF EXAM: Nov 03 2022 3:15PM WR [id number] - MRI THORACIC SPINE WO IVCON / PROCEDURE REASON: Thoracic spondylosis without myelopathy * * * * Physician Interpretation * * * * EXAMINATION: MRI THORACIC SPINE WO IVCON, MRI CERVICAL SPINE WO IVCON CLINICAL HISTORY: Thoracic spondylosis without myelopathy TECHNIQUE: Routine cervical and thoracic spine MR protocol without gadolinium. MQ: [id number] COMPARISON: None. RESULT: CERVICAL: Counting reference: Craniocervical junction. Anatomic Variants: None. Localizer images: Noncontributory. Alignment: Slight reversal of cervical lordosis with alignment otherwise normal. Craniocervical junction: Craniocervical junction is normal. Cord: Extradural defects are detailed below. Bone marrow signal/fracture: No evidence of pathologic marrow infiltration. No evidence of prior fracture. Posterior elements are intact. Mild STIR hyperintensity on the LEFT C7 inferior facet likely reflects degenerative change. Cervical soft tissues: The paraspinal soft tissues are within normal limits. C2-C3: Canal and foramina are patent. C3-C4: Disk osteophyte complex, facet, and uncinate joint hypertrophy result in minimal effacement anterior subarachnoid space and severe LEFT foraminal stenosis. C4-C5: Minimal disc osteophyte formation. C5-C6: Disk osteophyte complex, facet, and uncinate joint hypertrophy result in moderate flattening ventral cord and moderate LEFT foraminal stenosis. C6-C7: Disk osteophyte complex, facet, and uncinate joint hypertrophy result in moderate flattening ventral cord and moderate RIGHT and severe LEFT foraminal stenosis. C7-T1: Minimal disc osteophyte formation without canal or foraminal stenosis. THORACIC: Counting reference: Craniocervical and lumbosacral junctions For the purposes of this report, L4-5 is considered the level of the iliac crest and assume there are 5 lumbar-type vertebrae. Anatomic variant: None. Service Attendant (topogram) images: Multiple likely simple cysts within the liver and kidneys. Alignment: Alignment is anatomic. Cord: The thoracic spinal cord is within normal limits of signal intensity and morphology. Bone marrow signal/fracture: No evidence of pathologic marrow infiltration. Remote compression fracture deformity with mild loss of height anteriorly of L1 vertebral body. Thoracic soft tissues: The paraspinal soft tissues are within normal limits. Canal and foramina: Minimal multilevel degenerative change. Impression: IMPRESSION: Multilevel degenerative changes present within the cervical spine as above most notably C5-C6 and C6-C7. No high-grade canal or foraminal stenosis in the thoracic spine. Cervical Anatomic Variant: None. Assume 7 cervical vertebrae with counting from the craniocervical junction. Anatomic Thoracic/Lumbar Variant: None. L4-5 is considered the level of the iliac crest and assume there are 5 lumbar-type vertebrae. [facility] Transcribe Date/Time: Nov 03 2022 3:35P Dictated by : SCOTT HICKS MD This examination was interpreted and the report reviewed and electronically signed by: SCOTT HICKS MD on Nov 03 2022 4:05PM EST MRI Report MRI BRAIN WO IVCON Exam End: 06/02/2022 4:29 PM (Final result) Narrative: * * *Final Report* * * DATE OF EXAM: Jun 02 2022 4:29PM [facility] 0294 - MRI BRAIN WO IVCON / PROCEDURE REASON: Transient cerebral ischemia, unspecified type * * * * Physician Interpretation * * * * EXAMINATION: MRI BRAIN WO IVCON CLINICAL HISTORY: Transient cerebral ischemia. Dizziness. Balance problems. Falls. TECHNIQUE: Routine noncontrast MRI protocol including diffusion images. MQ: [id number] COMPARISON: None. RESULT: Acute Change: There is no evidence of restricted diffusion to suggest an acute infarct. Hemorrhage: No evidence of prior parenchymal hemorrhage on the gradient echo images. Mass Lesion/ Mass Effect: No evidence of an intracranial mass or extra-axial fluid collection. No significant mass effect. Chronic Change: Scattered patchy and confluent areas of increased T2 and FLAIR signal are present in the supratentorial white matter which is nonspecific but likely represents chronic microvascular ischemia. Parenchyma: There is mild generalized parenchymal volume loss. The brain parenchyma is otherwise within normal limits of signal intensity and morphology. Ventricles: Ventriculomegaly corresponds to the degree of parenchymal volume loss. Skull Base: Hypothalamic and pituitary region are grossly normal. Craniocervical junction is normal. No significant marrow replacement process. Vasculature: Major intracranial arterial structures, and dural venous sinuses show typical flow void, suggesting patency by spin echo criteria. Other: The visualized paranasal sinuses and mastoid air cells are clear. The orbits and extracranial soft tissues are unremarkable. Impression: IMPRESSION: Moderate chronic microvascular ischemic change and mild volume loss. No acute infarct or any other evidence of an acute intracranial abnormality. No clear cause for vertigo on the current examination. Home Therapy Clinician: [facility] Transcribe Date/Time: Jun 02 2022 5:03P Dictated by : UCHE GALICIA MD This examination was interpreted and the report reviewed and electronically signed by: UCHE GALICIA MD on Jun 02 2022 5:06PM EST XR Lumbar Spine 05/07/22: IMPRESSION: L1 vertebral body compression deformity/age indeterminate fracture. Lumbar spine degenerative changes with multilevel disc space narrowing. CT Brain 02/16/22: FINDINGS: There are calcifications around the carotid artery. These are noted in the cavernous carotid arteries. Normal calvarium. Normal soft tissues. There is mild cerebral atrophy with widening of the extra-axial spaces and ventricular dilatation. There are areas of decreased attenuation within the white matter tracts of the supratentorial brain, consistent with microvascular disease changes. Normal basal ganglia and thalami. Normal brainstem. There is mild cerebellar atrophy. There is no intracranial hemorrhage. There are no findings of an acute ischemic infarction. Degenerative changes of the mandibular condyles. Component Latest Ref Rng & Units 12/22/2021 Protein, Total 6.3 - 8.0 g/dL 7.3 Albumin 3.9 - 4.9 g/dL 4.3 Calcium 8.5 - 10.2 mg/dL 9.6 Bilirubin, Total 0.2 - 1.3 mg/dL 0.2 Alkaline Phosphatase 34 - 123 U/L 93 AST 13 - 35 U/L 25 ALT 7 - 38 U/L 22 Glucose 74 - 99 mg/dL 78 BUN 7 - 21 mg/dL 13 Creatinine 0.58 - 0.96 mg/dL 0.85 Sodium 136 - 144 mmol/L 135 (L) Potassium 3.7 - 5.1 mmol/L 4.8 Chloride 97 - 105 mmol/L 99 CO2 22 - 30 mmol/L 25 Anion Gap 9 - 18 mmol/L 11 eGFR >=60 mL/min/1.73m 72 WBC 3.70 - 11.00 k/uL 9.29 RBC 3.90 - 5.20 m/uL 4.79 Hemoglobin 11.5 - 15.5 g/dL 14.3 Hematocrit 36.0 - 46.0 % 45.7 MCV 80.0 - 100.0 fL 95.4 MCH 26.0 - 34.0 pg 29.9 MCHC 30.5 - 36.0 g/dL 31.3 RDW-CV 11.5 - 15.0 % 15.9 (H) Platelet Count 150 - 400 k/uL 355 MPV 9.0 - 12.7 fL 11.4 Absolute nRBC <0.01 k/uL <0.01 Cholesterol, Total <200 mg/dL 249 (H) Triglyceride <150 mg/dL 199 (H) HDL Cholesterol >39 mg/dL 41 Non HDL Cholesterol <130 mg/dL 208 (H) Fasting Time hrs 6 VLDL Cholesterol <30 mg/dL 40 (H) TC:HDL Ratio <5.10 6.07 (H) LDL Cholesterol <100 mg/dL 168 (H) LDL:HDL Ratio <2.54 4.10 (H) Hemoglobin A1C 4.3 - 5.6 % 6.7 (H) Estimated Average Glucose mg/dL 146 TSH 0.270 - 4.200 mIU/L 3.490 Vitamin D 25 Hydroxy 31.0 - 80.0 ng/mL 34.9 Assessment/Plan: I63.9 Cerebrovascular accident (CVA), unspecified mechanism (HCC) (primary encounter diagnosis) Comment: Pt was at home on 12/16/22 when she experienced sudden vertigo and vision loss. She received thrombolytic therapy and NIH on DC 0. MRI brain completed following administration and no infarct noted. She is currently taking Eliquis (dx with afib during admission) and Crestor without SE or concern. No new stroke sx at time of appointment today. Recommendations at this time include goal BP <140/90 and BS <140. Recommend LDL <70 for stroke prevention. Encouraged medication compliance. Follow up with PCP for htn, hld, and BG management. Recommend adequate exercise/physical activitywithin limitations. R26.81 Gait instability R26.89 Balance disorder M48.061 Spinal stenosis of lumbar region, unspecified whether neurogenic claudication present R42 Vertigo Comment: Hx of balance concerns and frequent falls over the past few years. Past testing included CT of brain which was unremarkable. In interim, MRI of brain completed noting moderate chronic microvascular ischemia but otherwise negative for etiology (NPH, stroke) of balance concerns and falls. XRof lumbar spine also completed with finding of L1 compression deformity and multilevel disc space na rrowing. She has previously been seen by spine medicine and has completed PT with improvement in symptoms. She still reports mild dizziness but has had significant improvement in balance and stability. She has not had any falls since her previous appointment. Recommend continuing to use assistive device upon ambulating and completing HEP. M79.601 Pain of right upper extremity M79.602 Pain of left upper extremity Comment: Pt previously reporting pain through RUE with sx present in first three digits of R hand. Today, she reports sx are present in the LUE. She has seen spine medicine who ordered cervical XR aswell as EMG. Again, she has not yet completed EMG. Encouraged her to schedule EMG/NCV to further differentiate etiology of symptoms. Pending results may consider consult to orthopedics versus follow-up with spine medicine. R25.1 Tremor Comment: Concern for LUE tremor. States she has a longstanding history of tremor in L hand but feels that over the past few weeks tremor has progressed to involve her arm. No tremor present at rest on exam but minimal tremor noted with arms outstretched. No other exam findings to suggest PD at thistime. Sx suggestive of essential tremor. Lab work previously ordered by PCP and to be drawn this upcoming month (CMP, A1C). Will add TSH to rule out underlying cause of tremor. No medications needed at this time. Will continue to monitor. Office Visit on 05/28/23 T[facility] ADRIANE Pacheco APRN.ELADIA I spent a total of 32 minutes on the date of the service which included preparing to see the patient, [id number] patient care, completing clinical documentation, obtaining and/or reviewing separately obtained history, performing a medically appropriate examination, counseling and educating the pat ient/family/caregiver, and ordering medications, tests, or procedures. documented in this encounterSt. [facility] History of Present illness Narrative* Rhianna Moon PA-C - 05/17/2023 12:34 PM EDTAssociated Order(s): Large Joint Arthro/Inj: bilateral knee joints Post-Procedure Diagnose(s): Primary osteoarthritis of both knees Large Joint Arthro/Inj: bilateral knee joints Informed Consent Consent Obtained: Verbal Walker Protocol A moment to CARE was completed. SIGN IN Sign in communication not applicable due to emergent procedure. Personnel directly involved with the procedure wore the appropriate PPE. Special Equipment: N/A Patient/Surrogate Stated/Verified: Patient name, Date of , Relevant allergies and Intended procedure TIME OUT Intended patient and procedure match the source document(s). Consent documented and matches the intended procedure. Relevant labs, photos, and/or imaging studies have been reviewed. Correct side/site marked and visible. Medications required for procedure verified. No fire risk assessment and interventions applicable. No implant(s) inserted. 05/17/2023 12:35 PM The procedure site was prepped in the usual sterile fashion. Site: bilateral knee joints Medications (Right): 6 mg betamethasone acetate-betamethasone sodium phosphate 6 mg/mL Medications (Left): 6 mg betamethasone acetate-betamethasone sodium phosphate 6 mg/mL Anesthetics (Right): 5 mL lidocaine (PF) 10 mg/mL (1 %) Anesthetics (Left): 5 mL lidocaine (PF) 10 mg/mL (1 %) Outcome: Tolerated well, no immediate complications Post-injection instructions were reviewed with the patient and the patient voiced understanding of these instructions. SIGN OUT No instruments, equipment or retained foreign bodies applicable. * Samina Bedoya Ma - 05/17/2023 11:19 AM EDT Patient presents with: Left Knee - Follow Up Right Knee - Follow Up 18 weeks 3 days post visit Bilateral knee pain: with injection given left knee AMB ROOMING INTAKE FLOWSHEET DATA Pain Pain Level: 7 Pain Location: (Bilateral knees) Description: Aching, Burning Duration Amount of Time: (Ongoing) Frequency: Continuous (Ongoing) Intervention/Comfort measure: Medication Patient helped helped for about 2 months. Patient would like injections in both knees today. Takingtylenol arthritis and Voltaren gel for the pain and helps some. documented in this encounterSt. [facility] [facility] Miscellaneous Notes* Telephone Encounter - Deonna Avelar Ma - 05/06/2023 2:29 PM EDT I called and spoke with patient. Message was given from Rhianna Moon PA-C and patient verbalized understanding. States she really wants an injection and she wasn't able to get an appointment until mid May. She has tried bracing, tylenol, voltaren gel, and ice and nothing is helping. Appointment was moved up to 05/17/2023 for an injection. * Telephone Encounter - Rhianna Moon PA-C - 05/03/2023 3:53 PM EDT We do not prescribe narcotic pain relievers for her knee arthritis, unfortunately she is unable to have oral anti-inflammatories because she is on a blood thinner. She can try a topical anti-inflammatory such as Voltaren. Voltaren is [id number], she can obtain the medication without a prescrip tion. It can be applied to the knees 4 times a day as needed. * Telephone Encounter - Lucía Ruvalcaba RN - 05/03/2023 2:37 PM EDT Pt. calling in to see if she can get pain medication for her left knee pain. She has appt on 06-07-23 for knee injections with Dr. Langston, but states she is having pain rated at 7 or 8 in left knee.Pt. uses [facility] pharmacy. Please advise. Lucía Vermilya, RN documented in this encounterSt. Mary'[facility] [place] [facility]08-07-2023 Miscellaneous Notes* Telephone Encounter - Addie Dupree LPN - 05/03/2023 2:21 PM EDT Patient has been identified by name and date of : Yes, Provider Dr. Gonsalez Date 05/03/23 Time 2:22 pm Patient phones for refill(s): Requested Prescriptions Pending Prescriptions Disp Refills meclizine (ANTIVERT) 25 mg tab 30 tablet 1 Sig: Take 1 tablet by mouth every 6 hours as needed (dizziness/vertigo). Date of last office visit in primary care: 02/26/23 next apt 08/30/23 Last 2 Encounter Wt Readings: Date: Wt: 02/26/2023 78 kg (172 lb) 02/04/2023 77.5 kg (170 lb 12.8 oz) Previous labs/tests for medication: Not applicable Thank you. Addie Dupree LPN documented in this encounterSt. [facility] [place] [facility]06[facility] History of Present illness Narrative* Yenifer Gonsalez MD - 02/26/2023 10:51 AM EDT This note was created using Gynesonicsriter. Subjective Elizabeth Rodrigez is a 77 year old female. Patient presents with: ED Follow-up: [facility] ED 02/19/2023 for dehydration and dizziness SUBJECTIVE: Elizabeth Rodrigez is a 77 year old year old lady here today for ER follow up appointment for review of medical conditions. Was told was mildly dehydrated. Could not stand up when went to ER. Worried might be recurrent stroke but no double vision noted. Reviewed records. CT brain was negative for acute stroke. Vertigo had resolved by the time was seen per records--she still had vertigo when first got tothe ER. Noted BP was high at home around 170 and when EMS got there. 179//108 per squad from what she recalled. Woke up fine then after urinated, vertigo/dizziness kicked in when went to get in bed and fell to the floor. Had to crawl from bedroom to living room. No LOC. No head injury. Still getting vertigo episodes since was in ER. Took RX meclizine that was given. Was treated through PT with vestibular therapy. Was not given home exercise plan. Noted already on verapamil for heart rate control. Was not given for high BP. Noted limited with walking due to knee issue and balance. Ortho told her not to do PT for knees because of DJD. Noted that knee injection had helped. Rhianna. PAST MEDICAL HISTORY Diagnosis Date Allergic rhinitis, cause unspecified Allergic rhinitis Carpal tunnel syndrome Depressive disorder, not elsewhere classified Disorder of bone and cartilage, unspecified Dysmetabolic syndrome X Dyspepsia and other specified disorders of function of stomach Dyspepsia Generalized anxiety disorder Anxiety, Generalized Generalized osteoarthrosis, involving hand Hemorrhage of gastrointestinal tract, unspecified Lichen sclerosus saw Dr. Jarvis Migraine without aura Obstructive sleep apnea (adult) (pediatric) uses C-PAP Other specified cardiac dysrhythmias(427.89) Panic disorder without agoraphobia Pure hypercholesterolemia Current Outpatient Medications Medication Sig Cholecalciferol, Vitamin D3, 50 mcg (2,000 unit) cap Take 1 capsule by mouth once daily. PARoxetine (PAXIL) 20 mg tablet Take 1 tablet by mouth twice daily. rosuvastatin (CRESTOR) 5 mg tablet Take 2 tablets by mouth once daily. As directed metFORMIN ER (GLUCOPHAGE XR) 500 mg 24 hr tablet Take 1 tablet by mouth twice daily before meals. or as directed alendronate (FOSAMAX) 70 mg tablet Take 1 tablet by mouth one time a week. Take with a full glass of water, on an empty stomach; do NOT lie down for 30minutes. verapamil 80 mg tablet Take 1 tablet by mouth twice daily. diclofenac (VOLTAREN ARTHRITIS PAIN) 1 % topical gel 2 gram up to 4 times a day for shoulder joints; 4 gram up to 4 times a day for knee joints. No more than 32 grams total per day ELIQUIS 5 mg tab(s) Take 1 tablet by mouth twice daily. (Patient taking differently: Take 5 mg by mouth twice daily. Taking two 5mg tablets equaling 10mg one in the AM one in the PM) clobetasol (TEMOVATE) 0.05 % cream Apply 1 application to affected area once daily as needed. acyclovir (ZOVIRAX) 400 mg tablet Take 1 tablet by mouth twice daily. gabapentin (NEURONTIN) 300 mg capsule Take 1 capsule by mouth three times daily. CPAP Initiate CPAP @ 12 cm of water with humidification. Mask (per patient preference) optional chin strap (if indicated) , filters, tubing, humidifier and lifetime supplies. albuterol HFA (PROVENTIL HFA, VENTOLIN HFA) 90 mcg/actuation inhaler INHALE 2 PUFFS BY MOUTH UP TO 4 TIMES DAILY NEEDED fluticasone (FLONASE) 50 mcg/actuation nasal spray Use 2 Sprays in each nostril once daily. for sinus drainage and genstion pumpkin seed extract-soy germ (AZO BLADDER CONTROL) 300 mg cap Take 1-3 capsules by mouth once daily. (usually just needs 1 capsule daily) COMPOUNDED PRESCRIPTION CPAP mask COMPOUNDED PRESCRIPTION CPAP mask--Mirage FX with formal mask fitting No current facility-administered medications for this visit. Review of Systems Objective BP 122/68 Pulse 87 Temp 36.9 C (98.5 F) Resp 18 Wt 78 kg (172 lb) SpO2 98% BMI 32.29 kg/m Physical Exam Constitutional: Appearance: Normal appearance. HENT: Head: Normocephalic. Eyes: Conjunctiva/sclera: Conjunctivae normal. Cardiovascular: Rate and Rhythm: Normal rate and regular rhythm. Heart sounds: Normal heart sounds. Pulmonary: Effort: Pulmonary effort is normal. Breath sounds: Normal breath sounds. Musculoskeletal: Right knee: Crepitus present. Left knee: Crepitus present. Skin: General: Skin is warm and dry. Neurological: General: No focal deficit present. Mental Status: She is alert and oriented to person, place, and time. Psychiatric: Mood and Affect: Mood normal. Behavior: Behavior normal. Thought Content: Thought content normal. Judgment: Judgment normal. Assessment and Plan Encounter Diagnosis ICD-10-CM 1. Vertigo R42 CONSULT TO PHYSICAL THERAPY Positional and since CVA. 2. Gait instability R26.81 CONSULT TO PHYSICAL THERAPY 3. Bilateral primary osteoarthritis of knee M17.0 CONSULT TO PHYSICAL THERAPY Already seen by ortho. Told to avoid PT just for knees. 4. PSVT (paroxysmal supraventricular tachycardia) (HCC) I47.1 Continue med for heart rate control. Also helps for BP (noted was not diagnosed with HTN before starting med for HR control) Above issues addressed with patient. Patient involved in shared decision making for management of medical issues. History and medications reviewed. Epic updated as needed Refills and/or prescriptions taken care of and meds adjusted as indicated after reviewed history, exam and labs. Health Maintenance reviewed. Updated record and/or ordered tests as recorded. Encouraged on efforts at healthy diet and regular exercise and adequate sleep. Yenifer Gonsalez MD [facility] History of Present illness Narrative* Michelle Pacheco, COMPUTER SUPPORT SPECIALIST.BEER COOLER - 02/04/2023 1:45 PM EDT Images from the original note were not included. [facility] [place] Follow-up Visit Follow-up note February 04, 2023 HPI: Ms. Rodrigez presents today for a follow-up visit. Per her previous visit on 06/17/22: R26.81 Gait instability (primary encounter diagnosis) M48.061 Spinal stenosis of lumbar region, unspecified whether neurogenic claudication present R42 Vertigo R26.89 Balance disorder R25.1 Tremor R29.6 Frequent falls Comment: Patient previously seen for balance concerns and frequent falls that began a few years agowith worsening over the past year. Also reporting tremor and mild memory concerns. Notable history includes migraines, sarcoidosis, ELISHA with use of PAP, CTS, anxiety, OA, hld, DM, cardiac dysrhythmiaand neuropathy as well as hx of arthritis with joint pain throughout. Past testing included CT of brain which was unremarkable. In interim, MRI of brain completed noting moderate chronic microvascular ischemia but otherwise negative for etiology (NPH, stroke) of balance concerns and falls. Possiblethat moderate microvascular changes contributing to memory concerns and discuss risk factors and jeff atments; pt will begin ASA 81mg daily and follow up with PCP for risk factor management. XR of lumbar spine also completed with finding of L1 compression deformity and multilevel disc space narrowing. Given findings, concern for possible lumbar radiculopathy. Physical therapy previously prescribed and she has attended one session thus far, however, she has not returned due to insurance concerns and has been exercising regularly and completing HEP at her house. She does note improvement in symptoms today and is no longer using a cane to assist with ambulation. She is interested in following upwith PT through [facility] and new consult ordered. Will also proceed with MRI of lumbar spine to further evaluate degree of degenerative changes. May consider consult to spine med pending results. Also of note, per PT report, pt experienced sx concerning for vertigo during appointment; sudden dizziness and nystagmus. On discussion she does report periodic vertigo episodes that usually last forshort period of time. Occasionally these occur when walking and cause her to stagger. Would recommend completion of vestibular therapy or physical therapy to treat vertigo symptoms. Again, new consult placed to PT as noted above. She will follow up after completion of therapy and after testing is complete to review results and determine further POC. She reports that she was at home when suddenly she had double vision and became extremely dizzy. Called her granddaughter who called EMS. She was taken to the ED. Had a CT and saw [facility] neurology via telehealth. NIH was 3 per pt report. Received thrombolytic therapy. Started on Eliquis. No bleeding concerns. Taking statin regularly; dose doubled since stroke. Has been taking BP medication regularly. Taking medication for DM regularly; states under control. Wearing CPAP regularly; using for years.Does state some nights she will forget and fall asleep without it on. Per hospital notes from 12/16/22: IMPRESSIONS: 1. Acute CVA status post tenecteplase The patient initially presented to the hospital with dizziness and diplopia. She was evaluated by neurology and felt to be a candidate for thrombolytic therapy. The patient has noted improvement in her symptoms since receiving the aforementioned therapy. Her last NIH score was noted to be 0. Plan for follow-up head imaging at 24 hours. Brain MRI can be completed tomorrow. Echocardiogram is pending. PT/OT evaluations tomorrow. Balance is better. Still not baseline but better than it was. Has only fallen once over the past year. Feels dizzy often. Was feeling dizzy before the stroke as well. Did go to vestibular therapy in the past twice. States she does not want to return at this time. Uses a cane. Saw spine med. She states C4-5 are compressed. Thought she had carpal tunnel. Has shooting pain through first few fingers. Also notes some numbness and tingling. Feels the pain all the way down her arm but uncertain if it starts at the shoulder or neck. She is right handed. PAST MEDICAL HISTORY Diagnosis Date Allergic rhinitis, cause unspecified Allergic rhinitis Carpal tunnel syndrome Depressive disorder, not elsewhere classified Disorder of bone and cartilage, unspecified Dysmetabolic syndrome X Dyspepsia and other specified disorders of function of stomach Dyspepsia Generalized anxiety disorder Anxiety, Generalized Generalized osteoarthrosis, involving hand Hemorrhage of gastrointestinal tract, unspecified Lichen sclerosus saw Dr. Jarvis Migraine without aura Obstructive sleep apnea (adult) (pediatric) uses C-PAP Other specified cardiac dysrhythmias(427.89) Panic disorder without agoraphobia Pure hypercholesterolemia PAST SURGICAL HISTORY Procedure Laterality Date BIOPSY BREAST OPEN INCISIONAL Bilateral Bx of breast, incisional COLONOSCOPY FLX DX W/COLLJ SPEC WHEN PFRMD 03/24/06 SPLENECTOMY TOTAL SEPARATE PROCEDURE 05/2018 Splenectomy TOTAL ABDOMINAL HYSTERECT W/WO RMVL TUBE OVARY Hysterectomy, FIGUEROA Current Outpatient Medications on File Prior to Visit Medication Sig rosuvastatin (CRESTOR) 5 mg tablet Take 2 tablets by mouth once daily. As directed metFORMIN ER (GLUCOPHAGE XR) 500 mg 24 hr tablet Take 1 tablet by mouth twice daily before meals. or as directed alendronate (FOSAMAX) 70 mg tablet Take 1 tablet by mouth one time a week. Take with a full glass of water, on an empty stomach; do NOT lie down for 30minutes. verapamil 80 mg tablet Take 1 tablet by mouth twice daily. diclofenac (VOLTAREN ARTHRITIS PAIN) 1 % topical gel 2 gram up to 4 times a day for shoulder joints; 4 gram up to 4 times a day for knee joints. No more than 32 grams total per day ELIQUIS 5 mg tab(s) Take 1 tablet by mouth twice daily. clobetasol (TEMOVATE) 0.05 % cream Apply 1 application to affected area once daily as needed. acyclovir (ZOVIRAX) 400 mg tablet Take 1 tablet by mouth twice daily. gabapentin (NEURONTIN) 300 mg capsule Take 1 capsule by mouth three times daily. phenazopyridine (PYRIDIUM) 200 mg tablet Take 1 tablet by mouth three times daily as needed. As directed for UTIs PARoxetine (PAXIL) 20 mg tablet Take 1 tablet by mouth twice daily. CPAP Initiate CPAP @ 12 cm of water with humidification. Mask (per patient preference) optional chin strap (if indicated) , filters, tubing, humidifier and lifetime supplies. albuterol HFA (PROVENTIL HFA, VENTOLIN HFA) 90 mcg/actuation inhaler INHALE 2 PUFFS BY MOUTH UP TO 4 TIMES DAILY NEEDED fluticasone (FLONASE) 50 mcg/actuation nasal spray Use 2 Sprays in each nostril once daily. for sinus drainage and genstion pumpkin seed extract-soy germ (AZO BLADDER CONTROL) 300 mg cap Take 1-3 capsules by mouth once daily. (usually just needs 1 capsule daily) COMPOUNDED PRESCRIPTION CPAP mask COMPOUNDED PRESCRIPTION CPAP mask--Mirage FX with formal mask fitting No current facility-administered medications on file prior to visit. Social History Tobacco Use Smoking status: Never Smokeless tobacco: Never Vaping Use Vaping Use: Never used Substance Use Topics Alcohol use: Yes Comment: She drinks approximately 1 sis per month Drug use: No ALLERGIES Allergen Reactions Epinephrine Other: See Comments Tachycardia, becomes incoherent Novocaine [Other] tachycardia Penicillins Rash Percocet [Oxycodone* Vomiting It makes her feel drunk Xylocaine [Lidocain* tachycardia Review of Systems: ENT: denies loss of hearing, vertigo Vision: denies blurring vison, double vision/diplopia Cardiopulmonary: denies chest pain, palpitations Respiratory: denies shortness of breath GI: denies recent nausea, vomiting, diarrhea, constipation : denies + incontinence (urgency and leaking) Musculoskeletal: denies + weakness (L leg), + joint ache/pain Back/spine: denies low back or cervical pains Neuro: denies + tremors, loss of feeling, dizziness, seizure, blackout, + paresthesia, facial paresthesia, facial weakness, difficulty in speech, slurring of words, dysarthria, dysphagia, memory loss, headache Physical Exam: 02/04/23 1341 BP: 144/86 Pulse: 85 Resp: 16 Temp: 36.6 C (97.8 F) SpO2: 97% Weight: 77.5 kg (170 lb 12.8 oz) Patient is alert and in no distress. Dress is appropriate. Mood is appropriate Breathing appears regular and unstressed Neurologic examination: Cognitively intact. No deficits. No formal MMSE performed. CN: Pupils equal and reactive to light, extraocular movements intact with no nystagmus, L eye L visual field cut, face is symmetric with no facial droop, facial sensation intact bilaterally to light touch. V1-3, hearing intact bilaterally, symmetric evaluation of the soft palate, tongue is midline with no deviation, shoulder shrug is symmetric. Motor exam shows 5/5 strength symmetric through the upper and lower extremities in all groups tested. Sensory intact to light touch and temperature in all extremities. Vibratory sensation is intact andsymmetric all extremities. Pinprick sensation decreased throughout all fingers of both hands. Deep tendon reflexes are symmetric at the biceps, brachioradialis, triceps, patella, and achilles bilaterally. Coordination: No dysmetria on finger to nose. No tremors noted. No drift seen. Gait normal in stance and pattern. + Romberg Tandem with imbalance. (-) Tinel's over bilateral wrists and elbows. Labs/studies: MRI Brain 12/17/22: [facility] [address] [place] [address] Brain without Contrast MR#: [id number] Acct: [id number] Name: ELIZABETH RODRIGEZ Rep #: [id number] : 1945 F 77 From: Pablo Mix MD PCP: Dr. Yenifer Gonsalez MD Status: ADM IN Study: Brain without Contrast Date of Exam: 12/17/22 Exam# [id number] Ordering Dr: Kitty Brooks MD STUDY: MRI BRAIN WITHOUT CONTRAST REASON FOR EXAM: Female, 77 years old. CVA -- MRI 24 hours after IV thrombolytic administration TECHNIQUE: Standardized multiplanar fat and water weighted pulse sequences were obtained. COMPARISON: 12/16/2022 HEMISPHERES, CEREBELLUM AND BRAINSTEM: 1. The cerebral parenchyma, ventricular system, subarachnoid spaces have normal configuration. There is a normal gyral pattern. There is normal landa/white differentiation. No midline shift.. 2. Mild subcortical and periventricular white matter FLAIR hyperintensities compatible with chronic microvascular ischemic change.. 3. No intraparenchymal mass, hemorrhage, or acute territorial infarct. 4. The cerebellum, brainstem, basilar and suprasellar cisterns have normal appearance. No Chiari malformation. PITUITARY: Infundibulum and pituitary have normal configuration. Midline structures appear normal. CSF SPACES: Appropriate for age. No hydrocephalus. Basal cisterns are patent. VESSELS: 1. There are normal flow voids noted in the great vessels at the skull base ORBITS AND PARANASAL SINUSES: 1. Bilateral ocular lens replacements. 2. Paranasal sinuses are clear. BONY ELEMENTS: Bony elements of the cranial vault, facial skeleton and skull base have normal appearance. SCALP AND SOFT TISSUES: Normal appearance of the soft tissues of the scalp and the visualized face MRI/Brain without Contrast IMPRESSION: 1. No intracranial mass, hemorrhage, or acute territorial infarct. 2. No radiographically significant sinus disease. CTA Head/Neck 12/16/22: FINDINGS: Normal bilateral petrous carotid arteries. Normal right cavernous carotid artery with a normal supraclinoid bifurcation. Normal left cavernous carotid artery with a normal supraclinoid bifurcation. Normal right A1 segments of the anterior cerebral artery. There is hypoplastic development of the left A1 segment of the anterior cerebral arteries with an atretic but intact artery. Normal intact anterior communicating artery (ACOM). Normal bilateral A2 segments of the anterior cerebral arteries. Normal right M1 and M2 segments of the middle cerebral arteries, with a normal M1 bifurcation. Normal left M1 and M2 segments of the middle cerebral arteries, with a normal M1 bifurcation. There is non-visualization of the right posterior communicating artery (PCOM). Normal left posterior communicating artery (PCOM). Normal bilateral vertebral arteries. Normal basilar artery with a normal basilar bifurcation. The visualized bilateral superior cerebellar (SCA) arteries are normal. Normal P1, P2 and visualized P3 segments of the right posterior cerebral artery. There is hypoplasia of the P1 segment of the left posterior cerebral artery. The P2 and P3 segments are supplied via the patent posterior communicating artery. There is no demonstrated aneurysm of the [place]. There is no demonstrated abnormality of the visualized brain. AORTIC ARCH: Atherosclerotic changes of the aortic arch without visualized dissection or aneurysm. Normal origins of the brachiocephalic, left common carotid, and left subclavian arteries. RIGHT CAROTID ARTERIES: Tortuosity of the right common carotid artery (CCA). Normal right common carotid bulb. Normal origin of the right internal carotid (ICA) artery without a hemodynamically significant stenosis. Tortuosity of the visualized cervical portion of the right internal carotid artery. Normal origin of the right external carotid artery (ECA). LEFT CAROTID ARTERIES: Tortuous left common carotid artery (CCA). Minimal calcific plaque at the carotid bulb with minimal stenosis. Normal origin of the left internal carotid (ICA) artery without a hemodynamically significant stenosis. Tortuous visualized cervical portion of the left internal carotid artery. Normal origin of the left external carotid artery (ECA). VERTEBRAL ARTERIES: There is enhancement within the bilateral vertebral arteries with a small right vertebral artery, and a dominant left vertebral artery. 12/16/22 1906 Date cc: Dr. Yenifer Gonsalez MD; Dr. Alejandro Chaudhari MD * Signed ADDENDUM by Dr. Jj Puente DO on 12/16/[address]/STROKE CTA Head AND Neck W/Con IMPRESSION: 1. Tortuous carotid arteries was minimal atherosclerotic changes at the left carotid bulb. There is no significant stenosis. 2. Normal vertebral arteries. 3. 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 The A2 segment is supplied via the patent anterior communicating artery. 4. Hypoplastic P1 segment of the left posterior cerebral artery. The posterior artery is supplied via the patent posterior communicating artery. 5. No evidence of aneurysm or large vessel occlusion. Echo 12/17/22: Interpretation Summary The left ventricular ejection fraction is 65 %. Diastolic function is indeterminate. The left atrium is severely enlarged. Mild focal mitral valve calcification. Mild (1+) aortic valve insufficiency. Mildly dilated aortic root. MRI Spine Report MRI THORACIC SPINE WO IVCON Exam End: 11/03/2022 3:19 PM (Final result) Narrative: * * *Final Report* * * DATE OF EXAM: Nov 03 2022 3:15PM [facility] 0325 - MRI THORACIC SPINE WO IVCON / PROCEDURE REASON: Thoracic spondylosis without myelopathy * * * * Physician Interpretation * * * * EXAMINATION: MRI THORACIC SPINE WO IVCON, MRI CERVICAL SPINE WO IVCON CLINICAL HISTORY: Thoracic spondylosis without myelopathy TECHNIQUE: Routine cervical and thoracic spine MR protocol without gadolinium. MQ: [id number] COMPARISON: None. RESULT: CERVICAL: Counting reference: Craniocervical junction. Anatomic Variants: None. Localizer images: Noncontributory. Alignment: Slight reversal of cervical lordosis with alignment otherwise normal. Craniocervical junction: Craniocervical junction is normal. Cord: Extradural defects are detailed below. Bone marrow signal/fracture: No evidence of pathologic marrow infiltration. No evidence of prior fracture. Posterior elements are intact. Mild STIR hyperintensity on the LEFT C7 inferior facet likely reflects degenerative change. Cervical soft tissues: The paraspinal soft tissues are within normal limits. C2-C3: Canal and foramina are patent. C3-C4: Disk osteophyte complex, facet, and uncinate joint hypertrophy result in minimal effacement anterior subarachnoid space and severe LEFT foraminal stenosis. C4-C5: Minimal disc osteophyte formation. C5-C6: Disk osteophyte complex, facet, and uncinate joint hypertrophy result in moderate flattening ventral cord and moderate LEFT foraminal stenosis. C6-C7: Disk osteophyte complex, facet, and uncinate joint hypertrophy result in moderate flattening ventral cord and moderate RIGHT and severe LEFT foraminal stenosis. C7-T1: Minimal disc osteophyte formation without canal or foraminal stenosis. THORACIC: Counting reference: Craniocervical and lumbosacral junctions For the purposes of this report, L4-5 is considered the level of the iliac crest and assume there are 5 lumbar-type vertebrae. Anatomic variant: None. Service Attendant (topogram) images: Multiple likely simple cysts within the liver and kidneys. Alignment: Alignment is anatomic. Cord: The thoracic spinal cord is within normal limits of signal intensity and morphology. Bone marrow signal/fracture: No evidence of pathologic marrow infiltration. Remote compression fracture deformity with mild loss of height anteriorly of L1 vertebral body. Thoracic soft tissues: The paraspinal soft tissues are within normal limits. Canal and foramina: Minimal multilevel degenerative change. Impression: IMPRESSION: Multilevel degenerative changes present within the cervical spine as above most notably C5-C6 and C6-C7. No high-grade canal or foraminal stenosis in the thoracic spine. Cervical Anatomic Variant: None. Assume 7 cervical vertebrae with counting from the craniocervical junction. Anatomic Thoracic/Lumbar Variant: None. L4-5 is considered the level of the iliac crest and assume there are 5 lumbar-type vertebrae. Home Therapy Clinician: ADAN Transcribe Date/Time: Nov 03 2022 3:35P Dictated by : SCOTT HICKS MD This examination was interpreted and the report reviewed and electronically signed by: SCOTT HICKS MD on Nov 03 2022 4:05PM EST MRI Report MRI BRAIN WO IVCON Exam End: 06/02/2022 4:29 PM (Final result) Narrative: * * *Final Report* * * DATE OF EXAM: Jun 02 2022 4:29PM [facility] 0294 - MRI BRAIN WO IVCON / PROCEDURE REASON: Transient cerebral ischemia, unspecified type * * * * Physician Interpretation * * * * EXAMINATION: MRI BRAIN WO IVCON CLINICAL HISTORY: Transient cerebral ischemia. Dizziness. Balance problems. Falls. TECHNIQUE: Routine noncontrast MRI protocol including diffusion images. MQ: [id number] COMPARISON: None. RESULT: Acute Change: There is no evidence of restricted diffusion to suggest an acute infarct. Hemorrhage: No evidence of prior parenchymal hemorrhage on the gradient echo images. Mass Lesion/ Mass Effect: No evidence of an intracranial mass or extra-axial fluid collection. No significant mass effect. Chronic Change: Scattered patchy and confluent areas of increased T2 and FLAIR signal are present in the supratentorial white matter which is nonspecific but likely represents chronic microvascular ischemia. Parenchyma: There is mild generalized parenchymal volume loss. The brain parenchyma is otherwise within normal limits of signal intensity and morphology. Ventricles: Ventriculomegaly corresponds to the degree of parenchymal volume loss. Skull Base: Hypothalamic and pituitary region are grossly normal. Craniocervical junction is normal. No significant marrow replacement process. Vasculature: Major intracranial arterial structures, and dural venous sinuses show typical flow void, suggesting patency by spin echo criteria. Other: The visualized paranasal sinuses and mastoid air cells are clear. The orbits and extracranial soft tissues are unremarkable. Impression: IMPRESSION: Moderate chronic microvascular ischemic change and mild volume loss. No acute infarct or any other evidence of an acute intracranial abnormality. No clear cause for vertigo on the current examination. Home Therapy Clinician: PSCB Transcribe Date/Time: Jun 02 2022 5:03P Dictated by : UCHE GALICIA MD This examination was interpreted and the report reviewed and electronically signed by: UCHE GALICIA MD on Jun 02 2022 5:06PM EST XR Lumbar Spine 05/07/22: IMPRESSION: L1 vertebral body compression deformity/age indeterminate fracture. Lumbar spine degenerative changes with multilevel disc space narrowing. Previously Reviewed: CT Brain 02/16/22: FINDINGS: There are calcifications around the carotid artery. These are noted in the cavernous carotid arteries. Normal calvarium. Normal soft tissues. There is mild cerebral atrophy with widening of the extra-axial spaces and ventricular dilatation. There are areas of decreased attenuation within the white matter tracts of the supratentorial brain, consistent with microvascular disease changes. Normal basal ganglia and thalami. Normal brainstem. There is mild cerebellar atrophy. There is no intracranial hemorrhage. There are no findings of an acute ischemic infarction. Degenerative changes of the mandibular condyles. Component Latest Ref Rng & Units 12/22/2021 Protein, Total 6.3 - 8.0 g/dL 7.3 Albumin 3.9 - 4.9 g/dL 4.3 Calcium 8.5 - 10.2 mg/dL 9.6 Bilirubin, Total 0.2 - 1.3 mg/dL 0.2 Alkaline Phosphatase 34 - 123 U/L 93 AST 13 - 35 U/L 25 ALT 7 - 38 U/L 22 Glucose 74 - 99 mg/dL 78 BUN 7 - 21 mg/dL 13 Creatinine 0.58 - 0.96 mg/dL 0.85 Sodium 136 - 144 mmol/L 135 (L) Potassium 3.7 - 5.1 mmol/L 4.8 Chloride 97 - 105 mmol/L 99 CO2 22 - 30 mmol/L 25 Anion Gap 9 - 18 mmol/L 11 eGFR >=60 mL/min/1.73m 72 WBC 3.70 - 11.00 k/uL 9.29 RBC 3.90 - 5.20 m/uL 4.79 Hemoglobin 11.5 - 15.5 g/dL 14.3 Hematocrit 36.0 - 46.0 % 45.7 MCV 80.0 - 100.0 fL 95.4 MCH 26.0 - 34.0 pg 29.9 MCHC 30.5 - 36.0 g/dL 31.3 RDW-CV 11.5 - 15.0 % 15.9 (H) Platelet Count 150 - 400 k/uL 355 MPV 9.0 - 12.7 fL 11.4 Absolute nRBC <0.01 k/uL <0.01 Cholesterol, Total <200 mg/dL 249 (H) Triglyceride <150 mg/dL 199 (H) HDL Cholesterol >39 mg/dL 41 Non HDL Cholesterol <130 mg/dL 208 (H) Fasting Time hrs 6 VLDL Cholesterol <30 mg/dL 40 (H) TC:HDL Ratio <5.10 6.07 (H) LDL Cholesterol <100 mg/dL 168 (H) LDL:HDL Ratio <2.54 4.10 (H) Hemoglobin A1C 4.3 - 5.6 % 6.7 (H) Estimated Average Glucose mg/dL 146 TSH 0.270 - 4.200 mIU/L 3.490 Vitamin D 25 Hydroxy 31.0 - 80.0 ng/mL 34.9 Assessment/Plan: I63.9 Cerebrovascular accident (CVA), unspecified mechanism (HCC) Comment: Pt was at home on 12/16/22 when she experienced sudden vertigo and vision loss. EMS was called and she was taken to ED where she received thrombolytic therapy. Symptoms improved with NIH on DC 0. MRI brain completed following administration and no infarct noted. She was noted to have afib on monitor and therefore she was started on Eliquis. She continues to take Crestor for lipid management. Echo completed during admission as well and she continues to follow with cardiology. On exam today she is noted to have L visual field cut but no other remaining symptoms. Recommendations at this time include goal BP <140/90 and BS <140. Recommend LDL <70 for stroke prevention. Encouraged medication compliance. Follow up with PCP for htn, hld, and BG management. Recommend adequate exercise/physical activity within limitations. R26.81 Gait instability M48.061 Spinal stenosis of lumbar region, unspecified whether neurogenic claudication present R42 Vertigo R26.89 Balance disorder R29.6 Frequent falls Comment: Hx of balance concerns and frequent falls over the past few years. Past testing included CT of brain which was unremarkable. In interim, MRI of brain completed noting moderate chronic microvascular ischemia but otherwise negative for etiology (NPH, stroke) of balance concerns and falls. XRof lumbar spine also completed with finding of L1 compression deformity and multilevel disc space na rrowing. She has since gone to physical therapy with some improvement of symptoms (both balance/strength and vertigo). Reports only one fall within the past year. Continues to use cane for stability.She has more recently been seen by spine medicine and continues to follow for additional testing. Recommend continued follow up with spine medicine. May consider return to PT if vertigo symptoms return. Recommend continuing to use assistive device to prevent and avoid falls and discussed the importance of this given the fact she is now taking Eliquis. M79.601 Pain of right upper extremity Comment: Pt reporting pain radiating throughout R UE. Symptoms are present in first 3 digits of R hand but she is uncertain if they radiate to shoulder or neck. She has seen spine medicine who ordered cervical XR as well as EMG. EMG not yet completed at this time. Exam findings with pinprick decreased throughout all fingers and negative Tinel's over R wrist and elbow. Agree with proceeding with EMG/NCV to further differentiate etiology of symptoms. Pending results may consider consult to orthopedics versus follow-up with spine medicine. Michelle Pacheco APRN.ELADIA I spent a total of 45 minutes on the date of the service which included preparing to see the patient, [id number] patient care, completing clinical documentation, obtaining and/or reviewing separately obtained history, performing a medically appropriate examination, and counseling and educating the patient/family/caregiver. documented in this encounterSt. [facility] [facility] Instructions* Patient Instructions* Dione Francisco APRN.ELADIA - 01/26/2023 1:46 PM EDT WHAT YOU CAN DO TO PREVENT FALLS Many falls can be prevented. By making some changes, you can lower your chances of falling. Four things YOU can do to prevent falls for you* and your caregiver 1. Begin a regular exercise program Exercise is one of the most important ways to lower your chances of falling. It makes you stronger and helps you feel better. Exercises that improve balance and coordination (like Rodney Chi) are the most helpful. Lack of exercise leads to weakness and increases your chances of falling. Ask your doctor or health care provider about the best type of exercise program for you. 2. Have your health care provider review your medicines Have your doctor or pharmacist review all the medicines you take, even pros-ung-qzsvvlh medicines. As you get older, the way medicines work in your body can change. Some medicines, or combinations of medicines, can make you sleepy or dizzy andcan cause you to fall. 3. Have your vision checked Have your eyes checked by an eye doctor at least once a year. You may be wearing the wrong glasses or have a condition like glaucoma or cataracts that limits your vision. Poor vision can increase your chances of falling. 4. Make your home safer About half of all falls happen at home. To make your home safer: Remove things you can trip over (like papers, books, clothes, and shoes) from stairs and places where you walk. Remove small throw rugs or use double-sided tape to keep the rugs from slipping. Keep items you use often in cabinets you can reach easily without using a step stool. Have grab bars put in next to your toilet and in the tub or shower. Use non-slip mats in the bathtub and on shower floors. Improve the lighting in your home. As you get older, you need brighter lights to see well. Hang light-weight curtains or shades to reduce glare. Have handrails and lights put in on all staircases. Wear shoes both inside and outside the house. Avoid going barefoot or wearing slippers. For more information, contact: Centers for Disease Control and Prevention www.cdc.gov/injury * This information may not apply if you have certain medical conditions. documented in this encounterSt. Mary[facility] [facility] History of Present illness Narrative* Dione Francisco APRN.CNP - 01/26/2023 1:26 PM EDT SUBJECTIVE Elizabeth Rodrigez is a 77 year old female here today for a check up on her medical problems. Chief Complaint Patient presents with: Recheck: 4-6 month follow up HPI Elizabeth Rodrigez is a 77 year old female established patient of Dr. Gonsalez who presents today for 4-6 month follow up. She was actually last seen on 01/02/2023 for [facility]CM [facility]. She has the history of stroke, a fib (on Eliquis), DM, depression, anxiety. She is following with cardiology for her a. Fib. Recently cut out regular coffee to help heart rate. No signsof bleedings with the Eliquis. Cardiology is also monitoring aortic aneurysm, PSVT. Neurology follow up next week. 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 Questioning if she has osteopenia or osteoporosis, on fosamax. Blood pressure does well, blood sugars good. DM well controlled. Hgba1c while in the hospital was 6 something. Mood stable, happy with the Paxil. Her medications were reviewed today and her list is now up to date. Medications Current Outpatient Medications Medication Sig rosuvastatin (CRESTOR) 5 mg tablet Take 2 tablets by mouth once daily. As directed metFORMIN ER (GLUCOPHAGE XR) 500 mg 24 hr tablet Take 1 tablet by mouth twice daily before meals. or as directed alendronate (FOSAMAX) 70 mg tablet Take 1 tablet by mouth one time a week. Take with a full glass of water, on an empty stomach; do NOT lie down for 30minutes. verapamil 80 mg tablet Take 1 tablet by mouth twice daily. diclofenac (VOLTAREN ARTHRITIS PAIN) 1 % topical gel 2 gram up to 4 times a day for shoulder joints; 4 gram up to 4 times a day for knee joints. No more than 32 grams total per day ELIQUIS 5 mg tab(s) Take 1 tablet by mouth twice daily. clobetasol (TEMOVATE) 0.05 % cream Apply 1 application to affected area once daily as needed. acyclovir (ZOVIRAX) 400 mg tablet Take 1 tablet by mouth twice daily. gabapentin (NEURONTIN) 300 mg capsule Take 1 capsule by mouth three times daily. albuterol HFA (PROVENTIL HFA, VENTOLIN HFA) 90 mcg/actuation inhaler INHALE 2 PUFFS BY MOUTH UP TO 4 TIMES DAILY NEEDED fluticasone (FLONASE) 50 mcg/actuation nasal spray Use 2 Sprays in each nostril once daily. for sinus drainage and genstion pumpkin seed extract-soy germ (AZO BLADDER CONTROL) 300 mg cap Take 1-3 capsules by mouth once daily. (usually just needs 1 capsule daily) Cholecalciferol, Vitamin D3, 50 mcg (2,000 unit) cap Take 1 capsule by mouth once daily. PARoxetine (PAXIL) 20 mg tablet Take 1 tablet by mouth twice daily. CPAP Initiate CPAP @ 12 cm of water with humidification. Mask (per patient preference) optional chin strap (if indicated) , filters, tubing, humidifier and lifetime supplies. COMPOUNDED PRESCRIPTION CPAP mask COMPOUNDED PRESCRIPTION CPAP mask--Mirage FX with formal mask fitting No current facility-administered medications for this visit. ALLERGIES Allergen Reactions Epinephrine Other: See Comments Tachycardia, becomes incoherent Novocaine [Other] tachycardia Penicillins Rash Percocet [Oxycodone* Vomiting It makes her feel drunk Xylocaine [Lidocain* tachycardia ACTIVE PROBLEM LIST Cerebrovascular Accident (Cva) ([facility]) - 01/26/2023 Osteopenia - 01/26/2023 Chronic Atrial Fibrillation ([facility]) - 01/26/2023 Compression Fracture of L1 Lumbar Vertebra ([facility]) - 06/24/2022 Obesity, Class I, Bmi 30-34.9 - 07/19/2021 Chronic Pain of Right Knee - 12/30/2018 Controlled Type 2 Diabetes Mellitus Without Complication, Without Long-Term Current Use of Insulin ([facility]) - 08/28/2018 Hearing Difficulty of Both Ears - 07/11/2017 Lichen Sclerosus Comment: saw Dr. Jarvis Psvt (Paroxysmal Supraventricular Tachycardia) ([facility]) Primary Osteoarthritis of Both Knees - 10/14/2015 Chronic Pain of Left Knee - 10/14/2015 Non Morbid Obesity Due to Excess Calories - 07/25/2015 Elisha On Cpap - 06/18/2015 Migraine Without Aura, Without Mention of Intractable Migraine Without Mention of Status Migrainosus - 09/12/2008 Ascending Aortic Aneurysm ([facility]) - 09/12/2008 Comment: noted ectasia of ascemnding aortic aneuryusm--stable at 3.8cm Disorder of Bone and Cartilage Allergic Rhinitis, Cause Unspecified Comment: Allergic rhinitis Generalized Anxiety Disorder Comment: Anxiety, Generalized Recurrent Major Depressive Disorder, in Partial Remission ([facility]) Pure Hypercholesterolemia Generalized Osteoarthrosis, Involving Hand Other Specified Cardiac Dysrhythmias(427.89) Panic Disorder Without Agoraphobia Social History Tobacco Use Smoking status: Never Smokeless tobacco: Never Vaping Use Vaping Use: Never used Substance Use Topics Alcohol use: Yes Comment: She drinks approximately 1 sis per month Drug use: No Review of Systems Respiratory: Negative. Cardiovascular: Negative. OBJECTIVE BP 126/70 Pulse 88 Wt 171 lb (77.6kg) SpO2 98% Physical Exam Vitals and nursing note reviewed. Constitutional: General: She is awake. She is not in acute distress. Appearance: Normal appearance. She is well-developed and well-groomed. She is not ill-appearing, toxic-appearing or diaphoretic. HENT: Head: Normocephalic. Right Ear: External ear normal. Left Ear: External ear normal. Nose: Nose normal. Eyes: General: Vision grossly intact. Conjunctiva/sclera: Conjunctivae normal. Pupils: Pupils are equal, round, and reactive to light. Neck: Vascular: No JVD. Trachea: Trachea normal. Cardiovascular: Rate and Rhythm: Normal rate and regular rhythm. Pulses: Normal pulses. Heart sounds: Normal heart sounds. No murmur heard. Pulmonary: Effort: Pulmonary effort is normal. No accessory muscle usage, prolonged expiration or respiratory distress. Breath sounds: Normal breath sounds. Musculoskeletal: Cervical back: Neck supple. Skin: General: Skin is warm and dry. Capillary Refill: Capillary refill takes less than 2 seconds. Neurological: General: No focal deficit present. Mental Status: She is alert and oriented to person, place, and time. Mental status is at baseline. Psychiatric: Attention and Perception: Attention and perception normal. Mood and Affect: Mood and affect normal. Speech: Speech normal. Behavior: Behavior normal. Behavior is cooperative. Thought Content: Thought content normal. Cognition and Memory: Cognition and memory normal. Judgment: Judgment normal. ASSESSMENT/PLAN: 1. Osteopenia, unspecified location - ICD9: 733.90, ICD10: M85.80 (primary diagnosis) - continue tx with alendronate (Fosamax) because of high fracture risk, reviewed DEXA with her today - Reviewed the need for Calcium and Vitamin D supplements and weight bearing exercise as tolerated - VITAMIN D 25 HYDROXY - CHOLECALCIFEROL (VITAMIN D3) 50 MCG (2,000 UNIT) CAPSULE 2. Cerebrovascular accident (CVA), unspecified mechanism ([facility]) - ICD9: 434.91, ICD10: I63.9 Follow up with neuro 3. Chronic atrial fibrillation (HCC) - ICD9: 427.31, ICD10: I48.20 On Eliquis for anticoagulant. Verapamil for rate. 4. Ascending aortic aneurysm, unspecified whether ruptured ([facility]) - ICD9: 441.2, ICD10: I71.21 5. Controlled type 2 diabetes mellitus without complication, without long-term current use of insulin ([facility]) - ICD9: 250.00, ICD10: E11.9 - Controlled - Continue current medications - HGB A1C - ALBUMIN/CREAT RATIO RND UR - LIPID PANEL BASIC 6. PSVT (paroxysmal supraventricular tachycardia) (HCC) - ICD9: 427.0, ICD10: I47.1 7. Generalized anxiety disorder - ICD9: 300.02, ICD10: F41.1 - PAROXETINE 20 MG TABLET 8. Recurrent major depressive disorder, in partial remission (HCC) - ICD9: 296.35, ICD10: F33.41 9. Abnormality of gait - ICD9: 781.2, ICD10: R26.9 - FALLS RISK EDUCATION 10. Falling episodes - ICD9: 781.99, E888.9, ICD10: R29.6 - FALLS RISK EDUCATION 11. Encounter for therapeutic drug monitoring - ICD9: V58.83, ICD10: Z51.81 - VITAMIN D 25 HYDROXY - HGB A1C - CBC - COMP METABOLIC PANEL Portions of this note have been entered by ancillary staff. I have reviewed and when necessary edited, so that they are an adequate record of my encounter with this patient Please note that parts of this document were created using voice recognition software and therefore may contain grammatical errors. Patient verbalizes understanding of instructions from today's visit and in agreement with treatmentplan. Questions answered. Agrees to call the office if questions, concerns of issues with acute symptoms not improving or if they worsen. See diagnoses and orders for additional plan(s). Allergies and medications were reviewed, list was updated, and refills given if needed. Past medical, surgical, social, and family history reviewed and updated as appropriate. Encouraged proper diet & exercise as well as compliance with taking medications. Age- appropriate health preventative measures were discussed. Return if symptoms worsen or fail to improve, for Keep next scheduled appointment.. Dione Francisco APRN-ELADIA documented in this encounterSt. Mary'[facility] [facility]04-[facility]23 Miscellaneous Notes* Telephone Encounter - GLADYS Presley - 01/04/2023 12:54 PM EDT 1st attempt to call patient and left vm. GLADYS Presley January 04, 2023 12:55 PM * Telephone Encounter - Ryanne Jett LPN - 01/04/2023 9:07 AM EDT Please assist pt in making a follow up appt with Michelle Pacheco for Cerebrovascular accident (CVA). Thank you! Ryanne Jett LPN documented in this encounterSt. Mary'[facility]04-08-2023 Miscellaneous Notes* Result Encounter Note - Christa Cabrera APRN.CNS - 01/02/2023 11:50 AM EDT No acute findings. Mild acromioclavicular joint degenerative changes documented in this encounterSt. Mary'[facility]04-08-2023 Progress note* Result Encounter Note - Christa Cabrera APRN.CNS - 01/02/2023 11:50 AM EDT No acute findings. Mild acromioclavicular joint degenerative changes [facility]04-08[facility] History of Present illness Narrative* Yenifer Gonsalez MD - 01/02/2023 10:34 AM EDT Transitional Care Management TCM Eligibility Documentation The following information was gathered during the initial Patient Outreach Encounter. Date of Outreach: 12/22/2022 Outreach Attempt 1: Contact Made Date of Discharge 12/19/2022 Some recent data might be hidden Provider Documentation Elizabeth Rodrigez is a 77 year old female here today for a follow up from recent hospitalization. I have reviewed the patient's hospital course including discharge summary, discharge medications , follow up needs, MRI, X-ray, Echo, and EKG with the patient and any family members present at today's visit. HPI Patient presents with: Hospital F/U: [facility] follow up stroke SUBJECTIVE: Elizabeth Rodrigez is a 77 year old year old lady here today for [facility] follow up appointment for review of medical conditions. Reviewed records Noted just has vision deficit left upper quadrant. Was started on Eliquis for a fib issue. Knows when is going into a fib. Feels woozy. Pain increased since had to stop naproxen. Noted increased shoulder pain. Hurts to do normal ROM to fasten seat belt or unfasten bra since offnaproxen. Has knee DJD moderate to severe on Xrays in 2018. Noted that had not done EMG/NCT since thought would be a lot of tests. Plans to get treadmill. Likes walking around the house. PAST MEDICAL HISTORY Diagnosis Date Allergic rhinitis, cause unspecified Allergic rhinitis Carpal tunnel syndrome Depressive disorder, not elsewhere classified Disorder of bone and cartilage, unspecified Dysmetabolic syndrome X Dyspepsia and other specified disorders of function of stomach Dyspepsia Generalized anxiety disorder Anxiety, Generalized Generalized osteoarthrosis, involving hand Hemorrhage of gastrointestinal tract, unspecified Lichen sclerosus saw Dr. Jarvis Migraine without aura Obstructive sleep apnea (adult) (pediatric) uses C-PAP Other specified cardiac dysrhythmias(427.89) Panic disorder without agoraphobia Pure hypercholesterolemia Current Outpatient Medications Medication Sig diazePAM (VALIUM) 5 mg tablet Take 1 tablet by mouth every 8 hours as needed for muscle spasm for up to 10 days. clobetasol (TEMOVATE) 0.05 % cream Apply 1 application to affected area once daily as needed. acyclovir (ZOVIRAX) 400 mg tablet Take 1 tablet by mouth twice daily. gabapentin (NEURONTIN) 300 mg capsule Take 1 capsule by mouth three times daily. phenazopyridine (PYRIDIUM) 200 mg tablet Take 1 tablet by mouth three times daily as needed. As directed for UTIs PARoxetine (PAXIL) 20 mg tablet Take 1 tablet by mouth twice daily. CPAP Initiate CPAP @ 12 cm of water with humidification. Mask (per patient preference) optional chin strap (if indicated) , filters, tubing, humidifier and lifetime supplies. albuterol HFA (PROVENTIL HFA, VENTOLIN HFA) 90 mcg/actuation inhaler INHALE 2 PUFFS BY MOUTH UP TO 4 TIMES DAILY NEEDED fluticasone (FLONASE) 50 mcg/actuation nasal spray Use 2 Sprays in each nostril once daily. for sinus drainage and genstion pumpkin seed extract-soy germ (AZO BLADDER CONTROL) 300 mg cap Take 1-3 capsules by mouth once daily. (usually just needs 1 capsule daily) COMPOUNDED PRESCRIPTION CPAP mask COMPOUNDED PRESCRIPTION CPAP mask--Mirage FX with formal mask fitting rosuvastatin (CRESTOR) 5 mg tablet Take 2 tablets by mouth once daily. As directed metFORMIN ER (GLUCOPHAGE XR) 500 mg 24 hr tablet Take 1 tablet by mouth twice daily before meals. or as directed alendronate (FOSAMAX) 70 mg tablet Take 1 tablet by mouth one time a week. Take with a full glass of water, on an empty stomach; do NOT lie down for 30minutes. verapamil 80 mg tablet Take 1 tablet by mouth twice daily. diclofenac (VOLTAREN ARTHRITIS PAIN) 1 % topical gel 2 gram up to 4 times a day for shoulder joints; 4 gram up to 4 times a day for knee joints. No more than 32 grams total per day ELIQUIS 5 mg tab(s) Take 5 mg by mouth twice daily. No current facility-administered medications for this visit. Review of Systems BP 114/60 Pulse 88 Temp 37.2 C (99 F) Resp 18 Wt 78 kg (172 lb) SpO2 97% BMI 32.29 kg/m Physical Exam Constitutional: Appearance: Normal appearance. HENT: Head: Normocephalic. Eyes: Conjunctiva/sclera: Conjunctivae normal. Cardiovascular: Rate and Rhythm: Normal rate and regular rhythm. Heart sounds: Normal heart sounds. Pulmonary: Effort: Pulmonary effort is normal. Breath sounds: Normal breath sounds. Musculoskeletal: Comments: Tender anterior left shoulder AC joint. Fair ROM. Hurts to reach top of back and lower back with arm rotated. Skin: General: Skin is warm and dry. Neurological: General: No focal deficit present. Mental Status: She is alert and oriented to person, place, and time. Psychiatric: Mood and Affect: Mood normal. Behavior: Behavior normal. Thought Content: Thought content normal. Judgment: Judgment normal. Labs reviewed Echo reviewed ASSESSMENT/PLAN: 1. Cerebrovascular accident (CVA), unspecified mechanism (HCC) - ICD9: 434.91, ICD10: I63.9 (primary diagnosis) On meds for prevention. Crestor dose increased Plans for follow up with through the neurology. 2. PSVT (paroxysmal supraventricular tachycardia) (HCC) - ICD9: 427.0, ICD10: I47.1 Continue present management. - VERAPAMIL 80 MG TABLET - VERAPAMIL 80 MG TABLET - Eliquis added 3. Chronic pain of both shoulders - ICD9: 719.41, 338.29, ICD10: M25.511, G89.29, M25.512 Refer to ortho as discussed but start with knee issues - XR SHOULDER GENERAL 3V OR MORE AP/TRUE AP/OTHER LEFT - XR SHOULDER GENERAL 3V OR MORE AP/TRUE AP/OTHER RIGHT - CONSULT TO ORTHOPAEDICS 4. Bilateral primary osteoarthritis of knee - ICD9: 715.16, ICD10: M17.0 More severe pain since off naproxen. Further evaluation and treatment as indicated. - CONSULT TO ORTHOPAEDICS 5. Osteopenia, unspecified location - ICD9: 733.90, ICD10: M85.80 - begin tx with alendronate (Fosamax) - Reviewed the need for Calcium and Vitamin D supplements and weight bearing exercise as tolerated 6. Mixed hyperlipidemia - ICD9: 272.2, ICD10: E78.2 - to be determined upon return of lab results - Continue current medication. I spent a total of 47 minutes on the date of the service which included [id number] patient care, completing clinical documentation, performing a medically appropriate examination, counseling and educating the patient/family/caregiver, and ordering medications, tests, or procedures. Yenifer Gonsalez MD documented in this encounterSt. Mary'[facility]03-31-2023 Miscellaneous Notes* Telephone Encounter - Christa Cabrera APRN.CNS - 12/25/2022 3:57 PM EDT Noted * Telephone Encounter - Dione Francisco APRN.CNP - 12/25/2022 3:57 PM EDT Noted * Telephone Encounter - Jenna Davis LPN - 12/25/2022 3:25 PM EDT Iveth from [facility] calling, states that she evaluated patient for speech therapy and patient does not speech therapy at this time. documented in this encounterSt. Mary'[facility]03-29-2023 Miscellaneous Notes* Telephone Encounter - Dione Francisco APRN.CNP - 12/23/2022 3:47 PM EDT Noted, agree with plan. * Telephone Encounter - Addie Dupree LPN - 12/23/2022 3:11 PM EDT Gary with [facility], PT calling with plan of care for pt. Will See pt 2 times a week for 2 weeks for functional mobility training. No call back needed. Addie Dupree LPN documented in this encounterSt. Mary'[facility]03-29-2023 Miscellaneous Notes* Telephone Encounter - Klaudia Romero LPN - 12/23/2022 1:18 PM EDT PATIENT NOTIFIED OF SAME. * Telephone Encounter - Dione Francisco APRN.ELADIA - 12/23/2022 12:27 PM EDT Please let her know I sent in 10 days worth to get her to her follow up but then to discuss with Dr. Gonsalez at follow up if they want to continue the Valium or try something else. PDMP website checked and validated. All prescriptions have been APPROPRIATELY filled. No suspiciousactivity was identified. 12/23/2022 by Dione Francisco APRN.CNP * Telephone Encounter - Teresa Rollins LPN - 12/22/2022 12:01 PM EDT Pt has hospital follow up with pcp 01/02/23. TCM note completed. With new dx of CVA and taking eliquis now they have instructed pt not to take naproxen. Pt report her muscle spasms pain has gotten bad. She says [facility] told her to resume the valium for this but gave her no rx. Please send rx to the pharmacy. documented in this encounterSt. Mary'[facility]03-29-2023 Miscellaneous Notes* Telephone Encounter - Dawson Hernandez RN - 12/23/2022 1:09 PM EDT Sylwia from [facility] called and is notified of providers instructions. She voices understanding. Dawson Hernandez RN * Telephone Encounter - Dione Francisco APRN.CNP - 12/23/2022 7:13 AM EDT Can call back and give verbal ok for plan of care if needed. * Telephone Encounter - Yuliya Aguilera LPN - 12/22/2022 3:59 PM EDT Sylwia from [facility] calling [facility] plan of care 2 visits weekly for 1 week, then 1 visit weekly for 3 weeks. documented in this encounterSt. Mary'S [facility]03-28-20[facility] History of Present illness Narrative* Teresa Rollins LPN - 12/22/2022 12:07 PM EDT TRANSITION CARE MANAGEMENT (TCM) INITIAL CONTACT Post Commander Outreach Provider Action/FYI: TCM Initial contact with patient post discharge, spoke to patient. Patient identified by name and . TRANSITION CARE MANAGEMENT INITIAL OUTREACH DOCUMENTATION: Date of Outreach: 12/22/2022 Outreach Attempt 1: Contact Made Date of Discharge 12/19/2022 Some recent data might be hidden SUMMARY: -Pt discharged from [facility] on 12/19/22. -Admitted for: CVA Do you have a hospital follow up appointment with your PCP? Appointment on 01/02/23 with pcp. Yes. Remind patient of appointment date, time, and location. If not within 14 calendar days of discharge - please reschedule accordingly. MEDICATIONS: Many patients have questions or concerns about their medications once they are home. Were you prescribed any new medications? If yes, what are those medications? Eliquis 5 mg one twice daily Were you told to hold any medications? If yes, what are those medications? Metformin for one day only naproxen Were any of your medications discontinued? No Do you have any questions about getting or taking your medications? No Your discharge instructions/After visit Summary (AVS) are important in guiding you through the recovery process. Is there anything I might help you understand? No Do you have all the necessary equipment and supplies at home? Yes [facility] starting today. Pt will call Dr. Javan Nash for appt. Medical records from recent hospitalization: Placed for provider to review documented in this [facility] Miscellaneous Notes* Telephone Encounter - Teresa Rollins LPN - 12/22/2022 12:06 PM EDT See other encounter. * Telephone Encounter - Dagmar Proctor - 12/21/2022 12:45 PM EDT Patient has been identified by name and date of : Yes Requested Prescriptions Pending Prescriptions Disp Refills diazePAM (VALIUM) 5 mg tablet 90 tablet 0 Sig: Take 1 tablet by mouth every 8 hours as needed for muscle spasm for up to 30 days. RX INSTRUCTIONS: Patient aware RX will be sent to pharmacy. No need to notify patient. Dagmar Proctor documented in this encounterSt. [facility]23 Miscellaneous Notes* Telephone Encounter - Fany Tobar LPN - 12/22/2022 9:10 AM EDT Patient is scheduled for hospital follow-up, 01/02/2023. Fany Tobar LPN * Telephone Encounter - Klaudia Romero LPN - 12/21/2022 9:43 AM EDT Scarlet [facility] Home Health notified of verbal ok for home care. LEFT MESSAGE FOR PATIENT TO CALL OFFICE to scheduled hospital follow up. * Telephone Encounter - Christa Cabrera APRN.ENVIRONMENTAL ATTORNEY - 12/18/2022 4:51 PM EDT See below. Okay for home health care. Schedule hospital follow-up if not already done. * Telephone Encounter - Fatou Whitlock RN - 12/18/2022 12:14 PM EDT Scarlet with [facility] HH calls to ask if provider will follow patient for home health orders including SN, PT, OT, ST. Patient currently hospitalized at [facility] following a stroke and new onset A-fib. Plans are for patient to discharge on Wednesday 12/20 or Thursday 12/21. Scarlet requesting call back at [phone]. Please review and advise, Fatou Whitlock RN documented in this encounterSt. [facility]03[facility] Shell [facility] December 19, 2022 9:10am Note Date/Time December 19, 2022 9:1 0am [facility] Medical Records Department [address] [place] [address] Consultation - Cardiology 12/19/22 0906 MR#: [id number] Acct: [id number] Name: ELIZABETH RODRIGEZ Rep #:[id number] : 1945 77 From: Abner Shell MD PCP: Dr. Yenifer Gonsalez MD Status:AD M IN [facility] Assessment & Plan Assessment/Plan (1) Acute CVA (cerebrovascular accident): PLAN: Patient presented with what appears to be an acute cerebrovascular accident and received tenecteplase with good results. At this time she does notappear to have any deficit. Will defer to hospitalist and neurologist on further management of the above. (2) Paroxysmal atrial fibrillation: PLAN: Review of the telemetry strips clearly demonstrates paroxysmal atrial fibrillation. My recommendation at this time would be to institute anticoagulation with a DOAC and consider discontinuing the aspirin. The verapamil should also be reinstituted. The above has been discussed with the hospitalist and understand and agree to proceed. We will sign off for now. Please reconsult as necessary. Thank you for allowing me to participate in the care of your patient. Please don't hesitate to call if any issues arise. HPI Consult Data Date of Consult: 12/19/22 HPI Narrative HPI Narrative: ELIZABETH RODRIGEZ, is a 77 F who presents with a history of hypertension, diabetes mellitus, hyperlipidemia, and obesity. She presented to the emergency room on December 16 with diplopia and dizziness. On presentation to the emergency department, the patient was noted to be afebrile hemodynamically stable.? She was maintaining appropriate oxygen saturations on room air.? Laboratory evaluation revealed a white blood cell count of 11,000.? Coagulation profile was unremarkable.? Chemistry profile was unrevealing.? CT head was unremarkable.? CTA head and neck showed no evidence ofa large vessel occlusion.? The patient was evaluated by neurology and felt to maddy candidate for tenecteplase.? Full thrombolytic therapy, the patient was admitted to the medical intensive care unit per protocol. The patient had been taking of her verapamil and was noted to have episodes of tachycardia during theadmission. Reviewing the strips it was unclear what these were and cardiology was consulted for further evaluation and management. The strips were reviewed and appear to be consistent with paroxysmal atrial fibrillation. An echocardiogram was performed which demonstrated preserved left ventricular systolic function. Review of the echocardiogram demonstrated normal atrial sizes. [facility] Medical History Anxiety and depression Arthritis Asthma BMI 36.0-36.9,adult Diabetes Hemorrhoids Herpes simplex vulvovaginitis History of blood clots History of PSVT (paroxysmal supraventricular tachycardia) Hyperlipidemia Lichen sclerosus Obesity Sarcoidosis Sleep apnea Spleen anomaly Splenomegaly Vulvar dermatitis Home Medications paroxetine HCl 20 mg tablet (Paxil) 20 mg PO BID DEPRESSION 04/03/16 [History Last Taken 10/28/20] verapamil 80 mg tablet 80 mg PO BID HEART 04/03/16 [History Last Taken 10/28/20] cranberry fruit concentrate 250 mg chewable tablet (Azo Cranberry) 250 mg PO TIDsupplement 06/05/19 [History Last Taken 10/28/20] metformin 500 mg tablet 500 mg PO BID blood sugar 06/05/19 [History Last Taken 10/28/20] naproxen 500 mg tablet 500 mg PO BID pain 06/05/19 [History Last Taken 10/28/20] gabapentin 400 mg capsule 400 mg PO BID nerve pain 10/29/20 [History Last Taken 10/28/20] clorazepate dipotassium 7.5 mg tablet (Tranxene T-Tab) 7.5 mg PO BID PRN Tyqzyzw87/14/21 [History Last Taken Unknown] fluticasone propionate 50 mcg/actuation nasal spray,suspension (Flonase Allergy Relief) 1 spray intranasal DAILY 09/09/21 [History Last Taken Unknown] diazepam 5 mg tablet 5 mg PO Q8 PRN Muscle Spasm #12 tabs 05/03/22 [Rx Last Taken Unknown] clobetasol 0.05 % topical cream 1 applic topical DAILY 12/16/22 [History Last Taken Unknown] aspirin 81 mg tablet,delayed release 81 mg PO BREAKFAST 30 days #30 tabs 12/18/22 [Rx Last Taken Unknown] clopidogrel 75 mg tablet 75 mg PO DAILY 21 days #21 tabs 12/18/22 [Rx Last Taken Unknown] rosuvastatin 5 mg tablet (Crestor) 10 mg PO DAILY cholesterol #30 tabs 12/18/22 [Rx Last Taken Unknown] Allergy/AdvReac Type Severity Reaction Status Date / Time lidocaine Allergy Intermediate tachycardia Verified 12/16/22 18:27 Penicillins Allergy Hives Verified 12/16/22 18:27 atorvastatin AdvReac Pain in Verified 12/16/22 18:27 joints hydrocodone bitartrate AdvReac Vomiting Verified 12/16/22 18:27 [From Vicodin] oxycodone HCl [From Percocet] AdvReac Vomiting Verified 12/16/22 18:27 Family History Daughter Hypertension Father Heart disease Mother Dementia Surgical History H/O splenectomy History of breast biopsy History of hysterectomy Social History Smoking Status: Never smoker alcohol intake: current details: social substance use type: does not use caffeine: Yes what type of physical activity do you participate in: walking seatbelt use: always do you feel safe at home: Yes 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 Constitutional: Denies fever(s) or weight loss Eyes Eyes: Reports systems reviewed and no addt'l complaints, except as documented ENT HEENT: Reports systems reviewed and no addt'l complaints, except as documented Cardiovascular Cardiovascular: Denies chest pain at rest, chest pain with activity, dyspnea at rest, dyspnea on exertion, edema, palpitations or paroxysmal nocturnal dyspnea Respiratory/Chest Respiratory/Chest: Denies dyspnea on exertion, productive cough, shortness of breath at rest or shortness of breath with exertion Gastrointestinal Gastrointestinal: Denies change in bowel habits, nausea, vomiting or weight changes Genitourinary Genitourinary: Denies difficulty urinating Musculoskeletal Musculoskeletal: Denies joint stiffness or muscle weakness Integumentary Integumentary: Denies lesions Neurologic Neurologic: Denies dizziness or syncope Psychiatric Psychiatric: Denies anxiety Endocrine Endocrinology: Denies excessive sweating or fatigue Hematologic/Lymphatic Hematologic/Lymphatic: Denies anemia Allergic/Immunologic Allergic/Immunologic: Denies seasonal rhinorrhea Physical Exam Const alert, oriented x3 and no apparent distress General Appearance: cooperative HEENT hearing grossly normal bilaterally Head and Scalp: atraumatic Eyes EOMs intact bilaterally Neck General: normal visual inspection Chest inspection of chest normal and palpation of chest normal Resp normal respiratory effort Auscultation: clear to auscultation bilaterally Cardio regular rate, regular rhythm, S1 normal heart sound and S2 normal heart sound Jugular Venous Distention: JVD GI normal to inspection, nondistended, normoactive bowel sounds Extremity normal capillary refill and no pedal edema Peripheral Pulses: Yes pulses 2+ throughout and femoral pulses present Skin no rashes or lesions noted Neuro oriented x3 and CN's II-XII intact bilaterally Psych Appearance: grossly normal and appropriate Risk Stratification Risk Stratification Applicable: No Objective Data Vital Signs: Vital Signs Temp Pulse Resp BP Pulse Ox O2 Del Method 98 F 74 16 118/82 H 96 Room Air 12/19/22 03:00 12/19/22 03:00 12/19/22 03:00 12/19/22 03:00 12/19/22 07:54 12/19/22 07:54 Oxygen Delivery Method Room Air Weight: 179 lb 8 oz Body Mass Index (BMI) 35.0 Intake & Output: Intake and Output for Last 24 Hours 12/17/22 12/18/22 12/19/22 23:59 23:59 23:59 Intake Total 5636.66 / 5636.66 760 / 760 Output Total 4150 / 4150 1500 / 1500 Balance 1486.66 / 1486.66 -740 / -740 Lab / Micro Data Result Diagrams: 12/17/22 03:40 12/17/22 03:40 Labs: Laboratory Results - last 24 hr 12/18/22 12:20: POC Glucose 87 12/18/22 16:25: POC Glucose 96 12/18/22 20:48: POC Glucose 93 12/19/22 06:19: POC Glucose 110 H Cardiology Labs/Tests Rhythm: EKG: ECHO: Stress Test: Cardiac Cath: PCI: CT Surgery: Holter monitor: EPS: PPM: CXR: Chest CT Scan: 12/19/22 0910 <Electronically signed by Abner Shell MD> Cosigner Signature (if applicable): CC: SUSAN Wisdom; Dr. Kitty Brooks MD; Dr. Alonso Tapia MD; Dr. Abner Shell MD; Dr. Shahbaz Elliott DO; Dr. Keshawn Forte MD; Dr. Yenifer Gonsalez MD; Dr. Darrion Pradhan MD~ Signed [facility] Work Phone: [phone] 896-619603-24-[address] Roth [facility] December 18, 2022 3:44pm Note Date/Time December 18, 2022 7:2 9am [facility] Medical Records Department [address] [place] [id number] Progress Note - Hospitalist 12/18/2225 MR#: [id number] Acct: [id number] Name: ELIZABETH RODRIGEZ Rep #:[id number] : 1945 77 From: Kyle Vee PCP: Dr. Yenifer Gonsalez MD Status:AD M IN Location: [place] [address] Reason for Visit Reason for Visit: Diagnoses Cerebral infarction due to unspecified occlusion or stenosis of left posterior cerebral artery (12/16/22) Cerebral infarction, unspecified (12/16/22) Subjective Subjective Follow-up for left quadrantanopia possible ischemic stroke. Objective Data Objective Data Vital Signs: Vital Signs Temp Pulse Resp BP Pulse Ox O2 Del Method 98.3 F 74 18 144/73 H 94 Room Air 12/18/22 00:00 12/18/22 05:00 12/18/22 05:00 12/18/22 05:00 12/18/22 05:00 12/18/22 05:00 Oxygen Delivery Method Room Air Weight: 179 lb 8 oz Body Mass Index (BMI) 35.0 Intake & Output: Intake and Output for Last 24 Hours 12/16/22 12/17/22 12/18/22 23:59 23:59 23:59 Intake Total 5636.66 / 5636.66 0 / 0 Output Total 4150 / 4150 1000 / 1000 Balance 1486.66 / 1486.66 -1000 / -1000 Lab / Micro Data Result Diagrams: 12/17/22 03:40 12/17/22 03:40 Labs: Laboratory Results - last 24 hr 12/17/22 03:40: Hemoglobin A1c 6.4 H 12/17/22 08:04: POC Glucose 95 12/17/22 11:09: POC Glucose 131 H 12/17/22 15:55: POC Glucose 78 12/17/22 22:02: POC Glucose 111 H 12/18/22 06:07: POC Glucose 98 Radiography Diagnostic Testing: Radiology Impression Echocardiogram 12/16/22 20:51 Interpretation Summary The left ventricular ejection fraction is 65 %. Diastolic function is indeterminate. The left atrium is severely enlarged. Mild focal mitral valve calcification. Mild (1+) aortic valve insufficiency. Mildly dilated aortic root. Brain MRI 12/17/22 18:30 IMPRESSION: 1. No intracranial mass, hemorrhage, or acute territorial infarct. 2. No radiographically significant sinus disease. Physical Exam Narrative Patient had tenecteplase on day of admission. Feels improvement in the strength of her left upper and lower extremity and vision. During physical therapy, patient went to A-fib RVR heart rate 140/min but at rest she is back at the sinus rhythm. Physical exam General: Alert, Oriented x3, Cooperative HEENT: Mild blurry on the left visual field extreme. Left upper quadranropia. Atraumatic, PERRLA, EOMI, Normocephalic Oral: Oral mucosa moist. No Gingival or Mucosal Lesions/ Ulcerations Neck: Supple, No JVD, Negative Carotid Bruits Lungs: Air entry diminished in bilateral lung bases. No crepitation/rhonchi Cardiovascular: Sinus rhythm. Regular rate, Regular Rhythm, Normal S1, Normal S2, No murmurs Abdomen: Bowel Sounds Present, Soft, Non Tender, Non-Distended : No renal angle tenderness. No suprapubic tenderness. Extremities: No edema, Capillary Refill Less than 3 Seconds Skin: No rashes, No breakdown Musculoskeletal: No Tenderness to Palpation of Joints or Extremities Neurological: Muscle strength 5/5 in left upper extremity, 4+/5 left lower extremity. No dysmetria. Fcpg-bu-ikgu and finger-nose test are negative. No extension. NIH stroke scale 1 For partial hemianopia. Psych/Mental Status: Normal Affect, Appropriate. 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 This [facility].. Patient denies any trouble with speech or swallowing. #1. Left homonymous superior quadrantanopia, left sided mild weakness/numbness,suggestive of ischemic stroke: CT head no acute abnormality. CTA head and neck ruled out LVO. Patient is being admitted in ICU after given tenecteplase. NIH stroke scale monitoring, BP 180/105 and with and glucose monitoring as per guidelines. Serum magnesium 2.0. Troponin normal. Fasting lipid profile LDL 60 HDL 39. TSH normal. MRI scheduled for evening 6 PM. 2D echo is done. After that SOC consult 3/24: MRI brain does not show acute territorial infarct or hemorrhage or mass. Bubble contrast study negative for gmldb-pl-oula interatrial shunt. Work-up is complete. SOC consult. Plan was to start on dual antiplatelet agent aspirin and Plavix but patient went into A-fib with RVR, new onset therefore started on aspirin and Eliquis 5 mg twice daily #2. Diabetes mellitus type II with chronic neuropathy: A1c 6.4, glucose well controlled. #3. Hypertension: As noted we will follow post tenecteplase order set with as needed agents per stroke protocol as needed with resumption of hypertensive regimen once appropriate. #4. Hyperlipidemia: attempt to change to moderate dose statin therapy given acute presentation as noted but does have history of joint pain with statin therapies #5. History sarcoidosis: Unclear exact involvement, encourage continued outpatient follow-up and assessment. #6. New onset A-fib, transient with history PSVT: Patient was sinus rhythm during hospital course on the bed. But when tried to make walk she went to A-fib RVR heart rate 120 to 140/min, back to sinus rhythm at rest. Twelve-lead EKG at today shows normal sinus rhythm at 88 bpm. 2D echo shows left atrium severely enlarged. Cardiology consult requested. Heart rate is controlled in 70s, started on low- dose metoprolol 12.5 mg twice daily. #7. Anxiety and depression: continue patient home Paxil as well as clorazepateas needed regimen. #8. History of VTE: Patient is not chronically anticoagulated per current list,recent tenecteplase administration as noted, holding on chemoprophylaxis given this. #9. History splenomegaly: Patient status post prior splenectomy. #10. Allergic rhinitis: We will continue patient home fluticasone regimen. #11. Obesity: Weight loss and lifestyle changes encouraged, nutrition consultedper stroke admission protocol. #12. Asthma: Does have budesonide listed on home regimen however she states shedoes not use this, will have as needed albuterol, encourage head of bed and I-S. #13. ELISHA: CPAP nightly. #14. DVT prophylaxis: SCDs. #15. CODE status: Patient HCPOA is her daughter and her granddaughter and living will is currently in place but she notes that some items need to be updated. Discussed CODE status at length including difference between FULL code,DNR-CCA and DNR-CC status. Following discussions about the differences in these status, requested Full Code status. Charges/Coding Visit Charges Inpatient E&M: 25831 Subs Hosp L3 12/18/22 1129 <Electronically signed by Kyle Roth MD> Cosigner Signature (if applicable): CC: ~ Signed ADDENDUM by Dr. Kyle Roth MD on 12/18/22 at 1133 Addendum Patient already on verapamil 80 mg p.o. twice daily at home which was on hold during ICU stay. Verapamil resumed. Patient has history of supraventricular tachycardia. 12/18/22 1134<Electronically signed by Kyle Roth MD> Cosigner Signature (if applicable): cc: ~* Signed ADDENDUM by Dr. Kyle Roth MD on 12/18/22 at 1543 Addendum Patient had EKG reviewed which shows sinus rhythm. Multiple strips on the brassiere cup mold cutter reviewed and discussed with funds transfer clerk Dr. Shell. They agree that patient has paroxysmal A-fib. In view of recent ischemic event possible embolic source, decided to start the patient on Eliquis 5 mg p.o. twice daily. MRI does not show ischemia therefore baby aspirin discontinued. Does not need Plavix. 12/18/22 1544<Electronically signed by Kyle Roth MD> Cosigner Signature (if applicable): cc: ~* Signed [facility] Work Phone: 1(474) 589-257303-24-[address] Elliott [facility] December 18, 2022 8:32am Note Date/Time December 18, 2022 7:0 6am [facility] Medical Records Department [address] [place] [address] Progress Note - Bead Wire Insulator 12/18/22 0705 MR#: [id number] Acct: [id number] Name: ELIZABETH RODRIGEZ Rep #:[id number] : 1945 77 From: Shahbaz Elliott DO PCP: Dr. Yenifer Gonsalez MD Status:AD M IN Location: ICU ICU03-1 Assessment & Plan Assessment/Plan (1) Acute CVA (cerebrovascular accident): PLAN: Plan RECOMMENDATIONS: 1. PT/OT evaluations today. 2. Recommend neurology follow-up. 3. Encourage incentive spirometer use while in bed. 4. We will sign off from a critical care perspective. Please call with any additional questions. IMPRESSIONS: 1. Acute CVA status post tenecteplase The patient initially presented to the hospital with dizziness and diplopia. She was evaluated by neurology and felt to be a candidate for thrombolytic therapy. The patient has noted improvement in her symptoms since receiving the aforementioned therapy. However, subsequent brain MRI failed to demonstrate evidence of acute infarction. Echocardiogram was unrevealing. Recommend PT/OT evaluations along with neurology follow-up. 2. History of diabetes mellitus/hypertension/hyperlipidemia/obesity Complicates care, management, recovery and prognosis. Continue home medicationsas indicated. This note was generated with InsideTrackation software. It may contain incorrectwords, spelling, and punctuation that were not noted in checking the note beforesigning. Subjective Subjective The patient was seen and examined at the bedside this morning. Events from the last 24 hours have been reviewed. The patient is currently afebrile, hemodynamically stable and maintaining appropriate oxygen saturations on room air. Brain MRI yesterday ruled out acute infarct. The patient has no specific complaints this morning. Objective Data Objective Data The patient's most recent lab work, culture data and imaging studies have all been personally reviewed. Surface echocardiogram demonstrated normal LV size and thickness with an ejection fraction of 65%. Vital Signs: Vital Signs Temp Pulse Resp BP Pulse Ox O2 Del Method 98.3 F 74 18 144/73 H 94 Room Air 12/18/22 00:00 12/18/22 05:00 12/18/22 05:00 12/18/22 05:00 12/18/22 05:00 12/18/22 05:00 Oxygen Delivery Method Room Air Weight: 179 lb 8 oz Body Mass Index (BMI) 35.0 Intake & Output: Intake and Output for Last 24 Hours 12/16/22 12/17/22 12/18/22 23:59 23:59 23:59 Intake Total 5636.66 / 5636.66 0 / 0 Output Total 4150 / 4150 1000 / 1000 Balance 1486.66 / 1486.66 -1000 / -1000 Lab / Micro Data Attestation: I reviewed the patient's lab results. Result Diagrams: 12/17/22 03:40 12/17/22 03:40 Labs: Laboratory Results - last 24 hr 12/17/22 03:40: Hemoglobin A1c 6.4 H 12/17/22 08:04: POC Glucose 95 12/17/22 11:09: POC Glucose 131 H 12/17/22 15:55: POC Glucose 78 12/17/22 22:02: POC Glucose 111 H 12/18/22 06:07: POC Glucose 98 Radiography Diagnostic Testing: Radiology Impression Echocardiogram 12/16/22 20:51 Interpretation Summary The left ventricular ejection fraction is 65 %. Diastolic function is indeterminate. The left atrium is severely enlarged. Mild focal mitral valve calcification. Mild (1+) aortic valve insufficiency. Mildly dilated aortic root. Ordering Physician: Kitty Brooks Referring Physician: Yenifer Gonsalez Performed By: Dede Melissa, RDCS, RVT Brain MRI 12/17/22 18:30 IMPRESSION: 1. No intracranial mass, hemorrhage, or acute territorial infarct. 2. No radiographically significant sinus disease. Electronically Signed: Pablo Mix MD at 19:58 EDT , Physical Exam Const alert, oriented x3 and no apparent distress General Appearance: cooperative HEENT normocephalic, head/scalp atraumatic and moist oral mucous membranes Eyes PERRL, EOMs intact bilaterally and conjunctivae normal Neck supple General: trachea midline Chest inspection of chest normal Resp normal respiratory effort Auscultation: Negative for rales, rhonchi or wheezes Cardio regular rate and regular rhythm GI normal to inspection, nondistended, normoactive bowel sounds Extremity no clubbing, cyanosis or edema Skin no rashes or lesions noted Neuro CN's II-XII intact bilaterally and no focal motor deficits Psych cooperative and affect normal Charges/Coding Visit Charges Inpatient E&M: 53834 Subs Hosp L2 12/18/22 0832 <Electronically signed by Shahbaz Elliott DO> Cosigner Signature (if applicable): CC: ~ Signed [facility] Work Phone: [phone] 805-983203-24-[address] Roth [facility] December 18, 2022 7:25am Note Date/Time December 18, 2022 7:2 6am [facility] Medical Records Department [address] [place] [address] Telemedicine Confirmation Receipt 12/18/22 MR#: [id number] Acct: [id number] Name: ELIZABETH RODRIGEZ Rep #:[id number] : 1945 77 From: Kyle Vee PCP: Dr. Yenifer Gonsalez MD Status:AD M IN SOC Telemed has confirmed receipt of a request for visit. This document confirms receipt of the order initiating the consult. To find the results of the consultation, please view the patient's reports for the scanned Telemed Consult. [facility] Work Phone: 1(912) 859-159903-23-[address] Roth [facility] December 17, 2022 2:37pm Note Date/Time December 17, 2022 7:5 0am [facility] Medical Records Department [address] [place] [address] Progress Note - Hospitalist 12/17/22 0744 MR#: [id number] Acct: [id number] Name: ELIZABETH RODRIGEZ Rep #:[id number] : 1945 77 From: Kyle Vee PCP: Dr. Yenifer Gonsalez MD Status:AD M IN Location: ICU ICU03-1 Reason for Visit Reason for Visit: Diagnoses Cerebral infarction due to unspecified occlusion or stenosis of left posterior cerebral artery (12/16/22) Subjective Subjective Follow-up for ischemic stroke after tenecteplase. Objective Data Objective Data Vital Signs: Vital Signs Temp Pulse Resp BP Pulse Ox O2 Del Method 98.2 F 78 14 134/68 H 96 Room Air 12/17/22 07:00 12/17/22 07:00 12/17/22 07:00 12/17/22 07:00 12/17/22 07:00 12/17/22 07:00 Oxygen Delivery Method Room Air Weight: 176 lb 12.972 oz Body Mass Index (BMI) 34.5 Intake & Output: Intake and Output for Last 24 Hours 12/15/22 12/16/22 12/17/22 23:59 23:59 23:59 Intake Total 3326.66 / 3326.66 Output Total 1900 / 1900 Balance 1426.66 / 1426.66 Lab / Micro Data Result Diagrams: 12/17/22 03:40 12/17/22 03:40 Labs: Laboratory Results - last 24 hr 12/16/22 18:35: WBC 11.5 H, RBC 4.85, Hgb 14.7, Hct 45.4, MCV 93.6, MCH 30.3, MCHC 32.4, RDW Std Deviation 53.9 H, RDW Coeff of Kadi 15.6 H, Plt Count 421, MPV10.5, Immature Gran % (Auto) 0.300, Neut % (Auto) 47.8, Lymph % (Auto) 37.0, [place] % (Auto) 12.3 H, Eos % (Auto) 2.2, Baso % (Auto) 0.4, Absolute Neuts (auto)5.5, Absolute Lymphs (auto) 4.24, Nucleated RBC % 0 12/16/22 18:35: PT 13.0, INR 1.0, APTT 24.5 12/16/22 18:35: Sodium 136, Potassium 3.8, Chloride 104, Carbon Dioxide 23.0, Anion Gap 9, BUN 17, Creatinine 1.01, Estim Creat Clear Calc 36.32, Est GFR (MDRD) Af Amer 69, Est GFR (MDRD) Non-Af 57 L, BUN/Creatinine Ratio 16.8, Glucose 159 H, Calcium 9.8, Troponin I High Sens 5 12/16/22 18:35: Magnesium 2.0 12/16/22 18:47: POC Glucose 141 H 12/16/22 21:51: POC Glucose 80 12/17/22 03:40: WBC 9.7, RBC 4.38, Hgb 13.2, Hct 41.4, MCV 94.5, MCH 30.1, MCHC 31.9 L, RDW Std Deviation 53.9 H, RDW Coeff of Kadi 15.7 H, Plt Count 235, MPV 11.3, Immature Gran % (Auto) 0.200, Neut % (Auto) 43.8 L, Lymph % (Auto) 38.8, [place] % (Auto) 14.0 H, Eos % (Auto) 3.0, Baso % (Auto) 0.2, Absolute Neuts (auto)4.2, Absolute Lymphs (auto) 3.74, Nucleated RBC % 0, Differential Comment SCANNED, Platelet Estimate ADEQUATE 12/17/22 03:40: Sodium 142, Potassium 4.4, Chloride 108 H, Carbon Dioxide 26.0, Anion Gap 8, BUN 13, Creatinine 0.81, Estim Creat Clear Calc 43.10, Est GFR (MDRD) Af Amer 88, Est GFR (MDRD) Non-Af 73, BUN/Creatinine Ratio 16.0, Glucose 106, Calcium 8.4 L, Total Bilirubin 0.30, AST 31, ALT 25, Alkaline Phosphatase 69, Total Protein 6.5, Albumin 3.0 L, Globulin 3.5, Albumin/Globulin Ratio 0.9, Triglycerides 172, Cholesterol 133, LDL Cholesterol 60, VLDL Cholesterol 34, HDLCholesterol 39 L, TSH 2.52 Radiography Diagnostic Testing: Radiology Impression Brain CT 12/16/22 18:31 IMPRESSION: No acute intracranial or calvarial abnormality. Electronically Signed: Jj Puente DO at 18:54 EDT Reading Location ID and State: [facility] / [place] Tel [phone], Service support , ADDENDUM: 12/16/22 191 IMPRESSION: No acute intracranial or calvarial abnormality. N.B. : The above Results were Read Back by Jj Puente DO to Alejandro Chaudhari MD, and understanding confirmed on 12/16/2022 19:07:51 (ET). Electronically Signed: Jj Puente DO at 18:54 EDT Reading Location ID and State: [facility] / [place] Tel [phone], Service support , Head/Neck CTA 12/16/22 18:32 IMPRESSION: 1. Tortuous carotid arteries was minimal atherosclerotic changes at the left carotid bulb. There is no significant stenosis. 2. Normal vertebral arteries. 3. 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 The A2 segment is supplied via the patent anterior communicating artery. 4. Hypoplastic P1 segment of the left posterior cerebral artery. The posterior artery is supplied via the patent posterior communicating artery. 5. No evidence of aneurysm or large vessel occlusion. Chest X-Ray 12/16/22 19:25 IMPRESSION: Degenerative changes, as described above. No demonstrated acute cardiopulmonary process. No major interval change. Electronically Signed: Jj Puente, at 19:51 EDT Reading Location ID and State: [facility] / [place] Tel [phone], Service support , Physical Exam Narrative Patient was admitted yesterday with left blurry vision, weakness on the left lower and upper extremity, off balance. Patient could not see clearly. Patienthad tenecteplase. Feels improvement in the strength of her left upper and lowerextremity and vision. Physical exam General: Alert, Oriented x3, Cooperative HEENT: Mild blurry on the left visual field. Left upper and lower quadranropia. Atraumatic, PERRLA, EOMI, Normocephalic Oral: Oral mucosa moist. No Gingival or Mucosal Lesions/ Ulcerations Neck: Supple, No JVD, Negative Carotid Bruits Lungs: Air entry diminished in bilateral lung bases. No crepitation/rhonchi Cardiovascular: Sinus rhythm. Regular rate, Regular Rhythm, Normal S1, Normal S2, No murmurs Abdomen: Bowel Sounds Present, Soft, Non Tender, Non-Distended : No renal angle tenderness. No suprapubic tenderness. Extremities: No edema, Capillary Refill Less than 3 Seconds Skin: No rashes, No breakdown Musculoskeletal: No Tenderness to Palpation of Joints or Extremities Neurological: Muscle strength 5/5 in left upper extremity, 4+/5 left lower extremity. No dysmetria. Thoi-mr-fcaf and finger-nose test are negative. No extension. NIH stroke scale 1 For partial hemianopia. Psych/Mental Status: Normal Affect, Appropriate. 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 This happened while she was walking to [facility] to picker medications.. Patient denies any trouble with speech or swallowing. #1. Left homonymous superior quadrantanopia, left sided mild weakness/numbness,suggestive of ischemic stroke: CT head no acute abnormality. CTA head and neck ruled out LVO. Patient is being admitted in ICU after given tenecteplase. NIH stroke scale monitoring, BP 180/105 and with and glucose monitoring as per guidelines. Serum magnesium 2.0. Troponin normal. Fasting lipid profile LDL 60 HDL 39. TSH normal. MRI scheduled for evening 6 PM. 2D echo is done. After that SOC consult #2. Diabetes mellitus type II with chronic neuropathy: A1c 6.4, glucose well controlled. #3. Hypertension: As noted we will follow post tenecteplase order set with as needed agents per stroke protocol as needed with resumption of hypertensive regimen once appropriate. #4. Hyperlipidemia: attempt to change to moderate dose statin therapy given acute presentation as noted but does have history of joint pain with statin therapies #5. History sarcoidosis: Unclear exact involvement, encourage continued outpatient follow-up and assessment. #6. History PSVT: Given acute presentation as noted temporarily holding patienton verapamil, will maintain on telemetry monitoring. #7. Anxiety and depression: continue patient home Paxil as well as clorazepateas needed regimen. #8. History of VTE: Patient is not chronically anticoagulated per current list,recent tenecteplase administration as noted, holding on chemoprophylaxis given this. #9. History splenomegaly: Patient status post prior splenectomy. #10. Allergic rhinitis: We will continue patient home fluticasone regimen. #11. Obesity: Weight loss and lifestyle changes encouraged, nutrition consultedper stroke admission protocol. #12. Asthma: Does have budesonide listed on home regimen however she states shedoes not use this, will have as needed albuterol, encourage head of bed and I-S. #13. ELISHA: CPAP nightly. #14. DVT prophylaxis: SCDs. #15. CODE status: Patient HCPOA is her daughter and her granddaughter and living will is currently in place but she notes that some items need to be updated. Discussed CODE status at length including difference between FULL code,DNR-CCA and DNR-CC status. Following discussions about the differences in these status, requested Full Code status. Charges/Coding Visit Charges Inpatient E&M: 69118 Subs Hosp L3 12/17/22 1437 <Electronically signed by Kyle Roth MD> Cosigner Signature (if applicable): CC: ~ Signed [facility] Work Phone: [phone]) [phone] Elliott [facility] December 17, 2022 9:55am Note Date/Time December 17, 2022 7:5 5am [facility] Medical Records Department [address] [place] [address] Consultation - B[employer] Insulator 12/17/22 0747 MR#: [id number] Acct: [id number] Name: ELIZABETH RODRIGEZ Rep #:[id number] : 1945 77 From: Shahbaz Elliott DO PCP: Dr. Yenifer Gonsalez MD Status:AD M IN Location: ICU ICU03-1 Assessment & Plan Assessment/Plan (1) Acute CVA (cerebrovascular accident): PLAN: Plan RECOMMENDATIONS: 1. Follow-up head imaging, per protocol this evening. 2. Brain MRI tomorrow. 3. PT/OT evaluations tomorrow. 4. Maintain blood pressure less than 180/105 mmHg. 5. Encourage incentive spirometer use while in bed. IMPRESSIONS: 1. Acute CVA status post tenecteplase The patient initially presented to the hospital with dizziness and diplopia. She was evaluated by neurology and felt to be a candidate for thrombolytic therapy. The patient has noted improvement in her symptoms since receiving the aforementioned therapy. Her last NIH score was noted to be 0. Plan for follow-up head imaging at 24 hours. Brain MRI can be completed tomorrow. Echocardiogram is pending. PT/OT evaluations tomorrow. 2. History of diabetes mellitus/hypertension/hyperlipidemia/obesity Complicates care, management, recovery and prognosis. Continue home medicationsas indicated. This note was generated with InsideTrackation software. It may contain incorrectwords, spelling, and punctuation that were not noted in checking the note beforesigning. HPI Consult Data Date of Consult: 12/17/22 HPI Narrative Reason for Consultation: Acute CVA status post tenecteplase HPI Narrative: The patient is a 77-year-old female, with a history as outlined below, who presented to the emergency department via EMS on December 16 with dizziness and diplopia. The patient has a history of diabetes mellitus, hypertension, hyperlipidemia and obesity. She denied a history of CVA. On presentation to the emergency department, the patient was noted to be afebrile hemodynamically stable. She was maintaining appropriate oxygen saturations on room air. Laboratory evaluation revealed a white blood cell count of 11,000. Coagulation profile was unremarkable. Chemistry profile was unrevealing. CT head was unremarkable. CTA head and neck showed no evidence ofa large vessel occlusion. The patient was evaluated by neurology and felt to maddy candidate for tenecteplase. Full thrombolytic therapy, the patient was admitted to the medical intensive care unit per protocol. Overnight, no issues were identified by the ICU nursing staff. NIH score earlier this morning was noted to be 0. The patient is resting comfortably in bed without any specific complaints. [facility] Medical History (Updated 12/17/22 @ 07:[address] Shahbaz Elliott, ) Anxiety and depression Arthritis Asthma BMI 36.0-36.9,adult Diabetes Hemorrhoids Herpes simplex vulvovaginitis History of blood clots History of PSVT (paroxysmal supraventricular tachycardia) Hyperlipidemia Lichen sclerosus Obesity Sarcoidosis Sleep apnea Spleen anomaly Splenomegaly Vulvar dermatitis Home Medications paroxetine HCl 20 mg tablet (Paxil) 20 mg PO BID DEPRESSION 04/03/16 [History Last Taken 10/28/20] verapamil 80 mg tablet 80 mg PO BID HEART 04/03/16 [History Last Taken 10/28/20] cranberry fruit concentrate 250 mg chewable tablet (Azo Cranberry) 250 mg PO TIDsupplement 06/05/19 [History Last Taken 10/28/20] metformin 500 mg tablet 500 mg PO BID blood sugar 06/05/19 [History Last Taken 10/28/20] naproxen 500 mg tablet 500 mg PO BID pain 06/05/19 [History Last Taken 10/28/20] gabapentin 400 mg capsule 400 mg PO BID nerve pain 10/29/20 [History Last Taken 10/28/20] clorazepate dipotassium 7.5 mg tablet (Tranxene T-Tab) 7.5 mg PO BID PRN Ooscjen40/14/21 [History Last Taken Unknown] fluticasone propionate 50 mcg/actuation nasal spray,suspension (Flonase Allergy Relief) 1 spray intranasal DAILY 09/09/21 [History Last Taken Unknown] rosuvastatin 5 mg tablet (Crestor) 5 mg PO DAILY cholesterol 09/09/21 [History Last Taken Unknown] diazepam 5 mg tablet 5 mg PO Q8 PRN Muscle Spasm #12 tabs 05/03/22 [Rx Last Taken Unknown] clobetasol 0.05 % topical cream 1 applic topical DAILY 12/16/22 [History Last Taken Unknown] Allergy/AdvReac Type Severity Reaction Status Date / Time lidocaine Allergy Intermediate tachycardia Verified 12/16/22 18:27 Penicillins Allergy Hives Verified 12/16/22 18:27 atorvastatin AdvReac Pain in Verified 12/16/22 18:27 joints hydrocodone bitartrate AdvReac Vomiting Verified 12/16/22 18:27 [From Vicodin] oxycodone HCl [From Percocet] AdvReac Vomiting Verified 12/16/22 18:27 Family History (Updated 12/16/22 @ 20:[address] 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 Physical Exam Const alert, oriented x3 and no apparent distress General Appearance: cooperative HEENT normocephalic, head/scalp atraumatic and moist oral mucous membranes Eyes PERRL, EOMs intact bilaterally and conjunctivae normal Neck supple General: trachea midline Chest inspection of chest normal Resp normal respiratory effort Auscultation: Negative for rales, rhonchi or wheezes Cardio regular rate and regular rhythm GI normal to inspection, nondistended, normoactive bowel sounds Extremity no clubbing, cyanosis or edema Skin no rashes or lesions noted Neuro CN's II-XII intact bilaterally and no focal motor deficits Psych cooperative and affect normal Lab / Micro Data Result Diagrams: 12/17/22 03:40 12/17/22 03:40 Labs: Laboratory Results - last 24 hr 12/16/22 18:35: WBC 11.5 H, RBC 4.85, Hgb 14.7, Hct 45.4, MCV 93.6, MCH 30.3, MCHC 32.4, RDW Std Deviation 53.9 H, RDW Coeff of Kadi 15.6 H, Plt Count 421, MPV 10.5, Immature Gran % (Auto) 0.300, Neut % (Auto) 47.8, Lymph % (Auto) 37.0, [place] % (Auto) 12.3 H, Eos % (Auto) 2.2, Baso % (Auto) 0.4, Absolute Neuts (auto)5.5, Absolute Lymphs (auto) 4.24, Nucleated RBC % 0 12/16/22 18:35: PT 13.0, INR 1.0, APTT 24.5 12/16/22 18:35: Sodium 136, Potassium 3.8, Chloride 104, Carbon Dioxide 23.0, Anion Gap 9, BUN 17, Creatinine 1.01, Estim Creat Clear Calc 36.32, Est GFR (MDRD) Af Amer 69, Est GFR (MDRD) Non-Af 57 L, BUN/Creatinine Ratio 16.8, Glucose 159 H, Calcium 9.8, Troponin I High Sens 5 12/16/22 18:35: Magnesium 2.0 12/16/22 18:47: POC Glucose 141 H 12/16/22 21:51: POC Glucose 80 12/17/22 03:40: WBC 9.7, RBC 4.38, Hgb 13.2, Hct 41.4, MCV 94.5, MCH 30.1, MCHC 31.9 L, RDW Std Deviation 53.9 H, RDW Coeff of Kadi 15.7 H, Plt Count 235, MPV 11.3, Immature Gran % (Auto) 0.200, Neut % (Auto) 43.8 L, Lymph % (Auto) 38.8, [place] % (Auto) 14.0 H, Eos % (Auto) 3.0, Baso % (Auto) 0.2, Absolute Neuts (auto)4.2, Absolute Lymphs (auto) 3.74, Nucleated RBC % 0, Differential Comment SCANNED, Platelet Estimate ADEQUATE 12/17/22 03:40: Sodium 142, Potassium 4.4, Chloride 108 H, Carbon Dioxide 26.0, Anion Gap 8, BUN 13, Creatinine 0.81, Estim Creat Clear Calc 43.10, Est GFR (MDRD) Af Amer 88, Est GFR (MDRD) Non-Af 73, BUN/Creatinine Ratio 16.0, Glucose 106, Calcium 8.4 L, Total Bilirubin 0.30, AST 31, ALT 25, Alkaline Phosphatase 69, Total Protein 6.5, Albumin 3.0 L, Globulin 3.5, Albumin/Globulin Ratio 0.9, Triglycerides 172, Cholesterol 133, LDL Cholesterol 60, VLDL Cholesterol 34, HDLCholesterol 39 L, TSH 2.[address] 12/16/22 18:31 IMPRESSION: No acute intracranial or calvarial abnormality. Electronically Signed: Jj Puente DO at 18:54 EDT Reading Location ID and State: [facility] / [place] Tel [phone], Service support , ADDENDUM: 12/16/22 191 IMPRESSION: No acute intracranial or calvarial abnormality. N.B. : The above Results were Read Back by Jj uPente DO to Alejandro Chaudhari MD, and understanding confirmed on 12/16/2022 19:07:51 (ET). Electronically Signed: Jj Puente DO at 18:54 EDT Reading Location ID and State: [facility] / [place] Tel [phone], Service support , Head/Neck CTA 12/16/22 18:32 IMPRESSION: 1. Tortuous carotid arteries was minimal atherosclerotic changes at the left carotid bulb. There is no significant stenosis. 2. Normal vertebral arteries. 3. 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 The A2 segment is supplied via the patent anterior communicating artery. 4. Hypoplastic P1 segment of the left posterior cerebral artery. The posterior artery is supplied via the patent posterior communicating artery. 5. No evidence of aneurysm or large vessel occlusion. Electronically Signed: Jj Puente DO at 19:06 EDT Reading Location ID and State: [facility] / [place] Tel [phone], Service support , ADDENDUM: 12/16/22 1915 IMPRESSION: 1. Tortuous carotid arteries was minimal atherosclerotic changes at the left carotid bulb. There is no significant stenosis. 2. Normal vertebral arteries. 3. 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 The A2 segment is supplied via the patent anterior communicating artery. 4. Hypoplastic P1 segment of the left posterior cerebral artery. The posterior artery is supplied via the patent posterior communicating artery. 5. No evidence of aneurysm or large vessel occlusion. N.B. : The above Results were Read Back by Jj Puente DO to Alejandro Chaudhari MD, and understanding confirmed on 12/16/2022 19:09:13 (ET). Electronically Signed: Jj Puente DO at 19:06 EDT Reading Location ID and State: [employer] / [place] Tel [phone], Service support , Chest X-Ray 12/16/22 19:25 IMPRESSION: Degenerative changes, as described above. No demonstrated acute cardiopulmonary process. No major interval change. Electronically Signed: Jj Puente DO at 19:51 EDT Reading Location ID and State: [facility] / [place] Tel [phone], Service support , Charges/Coding Visit Charges Inpatient E&M: 11950 Init Hosp L3 12/17/22 0955 <Electronically signed by Shahbaz Elliott DO> Cosigner Signature (if applicable): CC: SUSAN Wisdom; Dr. Kitty Brooks MD; Dr. Alonso Tapia MD; Dr. Shahbaz Elliott DO; Dr. Keshawn Forte MD; Dr. Yenifer Gonsalez MD; Dr. Darrion Pradhan MD~ Signed [facility] Work Phone: 1(921) 626-429103-22-2023 History and physical note Author Dr. Brooks [facility] December 16, 2022 8:37pm Note Date/Time December 16, 2022 7:4 5pm [facility] Medical Records Department [address] [place] [address] History & Physical Exam 12/16/221939 MR#: [id number] Acct: [id number] Name: ELIZABETH RODRIGEZ Rep #:[id number] : 1945 77 From: Kitty Brooks MD PCP: Dr. Yenifer Gonsalez MD Status:AD M IN Location: ICU ICU03-1 HPI - General General Date of Admission: 12/16/22 Date of Service: 12/16/22 Chief Complaint: Vision changes, imbalance, L sided weakness/paresthesias. HPI Narrative The patient is a 77 y/o F w/ PMHx: Asthma, Hx PSVT, HLD, Obesity, Depression andAnxiety, OA, Diabetes mellitus type II with chronic neuropathy, ELISHA, Hx VTE, Sarcodosis with unclear involvement, Known splenomegaly s/p prior splenectomy who presents to the [facility] ED on 12/16/22 with history of onset left eye blurry vision with associated dizziness and balance difficulties occurring suddenly while walking with her last known normal at approximately 5:30 PM on day of presentation reportedly going to [facility] to picker medications. In the ED evaluation notable for right quadrantopia as well as left-sided mild weakness/numbness and ataxia in the left lower extremity with difficulty walking/central ataxia. Stroke alert initiated and per neurology assessment NIHstroke scale reported as 5 with recommendation for thrombolytic administration, admission and continued routine stroke evaluation in the setting of tenecteplaseadministration. Work-up in the ED included T97.4, heart rate 96, BP 137/75, respiratory rate 18, 96% on room air, CBC with WC 11.5, hemoglobin 14.7, platelet 421 without marked shift, unremarkable coags, BMP with glucose 159 otherwise not marked appearing, troponin 5, CT of the brain with no acute intracranial or calvarial abnormality, CTA head and neck with tortuous carotid arteries with minimal atherosclerotic changes at the left carotid bulb with no significant stenosis, normal vertebral arteries, hypoplastic A1 segment of the left anteriorcerebral artery, A2 segment supplied by the patent anterior communicating artery, hypoplastic P1 segment of the left posterior cerebral artery, posterior artery supplied by the patent posterior communicating artery with no evidence ofany aneurysm or large vessel occlusion, EKG with sinus tach cardia with no acuteevidence of ischemia with mild nonspecific changes. In the ED patient initiatedon maintenance IV fluids and initiated on the tenecteplase administration tract with stroke alert. In the ED upon hospitalist evaluation patient had significant improvement of symptoms with resolution of vision changes, vertiginous symptoms abated, paresthesias resolved and left-sided weakness significantly improved although still did have left- sided mild ataxia on finger-nose and [id number] evaluation. [facility] Medical History (Updated 12/16/22 @ 20:[address] Kitty Brooks MD) Anxiety and depression Arthritis Asthma BMI 36.0-36.9,adult Diabetes Hemorrhoids Herpes simplex vulvovaginitis History of blood clots History of PSVT (paroxysmal supraventricular tachycardia) Hyperlipidemia Lichen sclerosus Obesity Sarcoidosis Sleep apnea Spleen anomaly Splenomegaly Vulvar dermatitis Home Medications paroxetine HCl 20 mg tablet (Paxil) 20 mg PO BID DEPRESSION 04/03/16 [History Last Taken 10/28/20] verapamil 80 mg tablet 80 mg PO BID HEART 04/03/16 [History Last Taken 10/28/20] cranberry fruit concentrate 250 mg chewable tablet (Azo Cranberry) 250 mg PO TIDsupplement 06/05/19 [History Last Taken 10/28/20] metformin 500 mg tablet 500 mg PO BID blood sugar 06/05/19 [History Last Taken 10/28/20] naproxen 500 mg tablet 500 mg PO BID pain 06/05/19 [History Last Taken 10/28/20] gabapentin 400 mg capsule 400 mg PO BID nerve pain 10/29/20 [History Last Taken 10/28/20] clorazepate dipotassium 7.5 mg tablet (Tranxene T-Tab) 7.5 mg PO BID PRN Peixrip93/14/21 [History Last Taken Unknown] fluticasone propionate 50 mcg/actuation nasal spray,suspension (Flonase Allergy Relief) 1 spray intranasal DAILY 09/09/21 [History Last Taken Unknown] rosuvastatin 5 mg tablet (Crestor) 5 mg PO DAILY cholesterol 09/09/21 [History Last Taken Unknown] diazepam 5 mg tablet 5 mg PO Q8 PRN Muscle Spasm #12 tabs 05/03/22 [Rx Last Taken Unknown] clobetasol 0.05 % topical cream 1 applic topical DAILY 12/16/22 [History Last Taken Unknown] Allergy/AdvReac Type Severity Reaction Status Date / Time lidocaine Allergy Intermediate tachycardia Verified 12/16/22 18:27 Penicillins Allergy Hives Verified 12/16/22 18:27 atorvastatin AdvReac Pain in Verified 12/16/22 18:27 joints hydrocodone bitartrate AdvReac Vomiting Verified 12/16/22 18:27 [From Vicodin] oxycodone HCl [From Percocet] AdvReac Vomiting Verified 12/16/22 18:27 Family History (Updated 12/16/22 @ 20:[address] 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 HEENT: Sudden onset right vision deficits Eyes: No visual loss, blurred vision, double vision or yellow sclerae. Ears, Nose, Throat: No hearing loss, sneezing, congestion, runny nose or sore throat. SKIN: No rash or itching, lesions, wounds. CARDIOVASCULAR: No chest pain, chest pressure or chest discomfort, palpitations,edema, orthopnea, syncopal events. RESPIRATORY: No shortness of breath, cough or sputum, wheezing, hemoptysis. GASTROINTESTINAL: No anorexia, nausea, vomiting or diarrhea, abdominal pain, melena, BRBPR. GENITOURINARY: No dysuria, frequency, urgency or retention. NEUROLOGICAL: + Right eye vision deficits, difficulty with balance, left lower extremity ataxia, left-sided mild weakness and paresthesias, dizziness/vertigo. No headachesyncope, paralysis, change in bowel or bladder control, seizure. MUSCULOSKELETAL: + muscle, back pain, joint pain or stiffness. HEMATOLOGIC: No anemia, bleeding or bruising. LYMPHATICS: No enlarged nodes. + history of splenectomy. PSYCHIATRIC: + history of depression or anxiety. ENDOCRINOLOGIC: No reports of sweating, cold or heat intolerance. No polyuria orpolydipsia. ALLERGIES: + history of asthma, rhinitis. Vital Signs Vital Signs Vital Signs: 12/16/22 18:25 12/16/22 18:49 12/16/22 18:49 Temperature 97.4 F L 98.3 F Temperature Source Temporal Temporal Pulse Rate 96 98 Respiratory Rate 18 16 Blood Pressure 137/75 H 142/84 H Blood Pressure Mean 95 103 Pulse Ox 96 94 Oxygen Delivery Method Room Air Room Air Room Air 12/16/22 19:00 12/16/22 19:21 12/16/22 19:30 Temperature 97.7 F L Temperature Source Oral Pulse Rate 92 96 Respiratory Rate 15 17 Blood Pressure 142/84 H 152/85 H 142/94 H Blood Pressure Mean 103 110 Pulse Ox 98 94 Oxygen Delivery Method Room Air Room Air Weight Weight: 187 lb 2.759 oz Body Mass Index (BMI) 35.3 Physical Exam Narrative Physical Examination: General: Awake, alert, oriented x 3 and cooperative, seated upright in the ED bed, anxious, fatigued, significantly improving status post tenecteplase administration. Skin: Normal color, normal turgor, no icterus, no cyanosis. HEENT: AT/NC, EOMI, PERRLA, MMM, no carotid bruits or JVD noted, complete resolution of prior visual deficits specifically to the right upper outer quadrant. Lungs: CTA bilaterally, moderate effort, mild decrease BL bases, no rales, ronchi or wheezing. Heart: Currently regular rate and rhythm; no gallop, rub audible. Abdomen: Soft, obese, NTTP, ND, normal BS, no HSM. Extremities: No cyanosis, clubbing, or edema. Neurological: Patient awake, alert, oriented as noted, cognitive function intact; pupils equally reactive to light and accommodation, all trotter of vision currently intact, cranial nerves II-XII grossly normal, moving all 4 extremities, sensation has returned to normal, no focal deficits, strength preserved, mild noted left upper extremity and lower extremity ataxia but extremely improved from initial, equivocal Babinski. Psychiatric: Affect appears anxious but calms with discussion, no acute evidenceof depressive feelings but does have underlying anxiety and depressive history. Results Lab / Micro Data Result Diagrams: 12/16/22 18:35 12/16/22 18:35 Labs: Laboratory Results - last 24 hr 12/16/22 18:35: WBC 11.5 H, RBC 4.85, Hgb 14.7, Hct 45.4, MCV 93.6, MCH 30.3, MCHC 32.4, RDW Std Deviation 53.9 H, RDW Coeff of Kadi 15.6 H, Plt Count 421, MPV10.5, Immature Gran % (Auto) 0.300, Neut % (Auto) 47.8, Lymph % (Auto) 37.0, [place] % (Auto) 12.3 H, Eos % (Auto) 2.2, Baso % (Auto) 0.4, Absolute Neuts (auto)5.5, Absolute Lymphs (auto) 4.24, Nucleated RBC % 0 12/16/22 18:35: PT 13.0, INR 1.0, APTT 24.5 12/16/22 18:35: Sodium 136, Potassium 3.8, Chloride 104, Carbon Dioxide 23.0, Anion Gap 9, BUN 17, Creatinine 1.01, Estim Creat Clear Calc 36.32, Est GFR (MDRD) Af Amer 69, Est GFR (MDRD) Non-Af 57 L, BUN/Creatinine Ratio 16.8, Glucose 159 H, Calcium 9.8, Troponin I High Sens 5 12/16/22 18:47: POC Glucose 141 H Radiology Impression Brain CT 12/16/22 18:31 IMPRESSION: No acute intracranial or calvarial abnormality. Electronically Signed: Jj Puente DO at 18:54 EDT Reading Location ID and State: [address] [place] [address] Tel [phone], Service support , ADDENDUM: 12/16/221913 IMPRESSION: No acute intracranial or calvarial abnormality. N.B. : The above Results were Read Back by Jj Puente DO to Alejandro Chaudhari MD, and understanding confirmed on 12/16/2022 19:07:51 (ET). Electronically Signed: Jj Puente DO at 18:54 EDT , Head/Neck CTA 12/16/22 18:32 IMPRESSION: 1. Tortuous carotid arteries was minimal atherosclerotic changes at the left carotid bulb. There is no significant stenosis. 2. Normal vertebral arteries. 3. 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 The A2 segment is supplied via the patent anterior communicating artery. 4. Hypoplastic P1 segment of the left posterior cerebral artery. The posterior artery is supplied via the patent posterior communicating artery. 5. No evidence of aneurysm or large vessel occlusion. Electronically Signed: Jj Puente DO at 19:06 EDT Reading Location ID and State: [address] [place] [address] Tel [phone], Service support , ADDENDUM: 12/16/22 1915 IMPRESSION: 1. Tortuous carotid arteries was minimal atherosclerotic changes at the left carotid bulb. There is no significant stenosis. 2. Normal vertebral arteries. 3. 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 The A2 segment is supplied via the patent anterior communicating artery. 4. Hypoplastic P1 segment of the left posterior cerebral artery. The posterior artery is supplied via the patent posterior communicating artery. 5. No evidence of aneurysm or large vessel occlusion. N.B. : The above Results were Read Back by Jj Puente DO to Alejanrdo Chaudhari MD, and understanding confirmed on 12/16/2022 19:09:13 (ET). Electronically Signed: Jj Puente DO at 19:06 EDT Reading Location ID and State: [facility] / [place] Tel [phone], Service support , Assessment & Plan Assessment/Plan (1) Acute ischemic left posterior cerebral artery ([employer]) stroke: PLAN: Plan The patient is a 77 y/o F w/ PMHx: Asthma, Hx PSVT, HLD, Obesity, Depression andAnxiety, OA, Diabetes mellitus type II with chronic neuropathy, ELISHA, Hx VTE, Sarcodosis with unclear involvement, Known splenomegaly s/p prior splenectomy who presents to the [facility] ED on 12/16[facility]22 with history of onset left eye blurry vision with associated dizziness and balance difficulties occurring suddenly while walking with her last known normal at approximately 5:30 PM on day of presentation [facility] #1. 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 Will consult Neurology for evaluation. Goal currently for BP less than 185/105 prior to administration tenecteplase in the ED with plans for postthrombolytic protocol, will attempt to transition to at least moderate dose statin w/ AM FLP, fall precautions. Magnesium, TSH, FLP, hemoglobin A1c requested. May have meclizine for symptoms as needed. We will plan on requesting neurology SOC consultation once MRI of the brain and further work-up is obtained at the 24-hour ervin. #2. Diabetes mellitus type II with chronic neuropathy: Hold oral home regimen, continue home insulin regimen, ADA diet, accu checks w/ ISS, hemoglobin A1c requested given acute presentation, nutrition consultation for education and teach, continue patient home chronic gabapentin regimen. #3. Hypertension: As noted we will follow post tenecteplase order set with as needed agents per stroke protocol as needed with resumption of hypertensive regimen once appropriate. #4. Hyperlipidemia: Will attempt to change to moderate dose statin therapy given acute presentation as noted but does have history of joint pain with statin therapies, FLP in a.m. #5. History sarcoidosis: Unclear exact involvement, encourage continued outpatient follow-up and assessment. #6. History PSVT: Given acute presentation as noted temporarily holding patienton verapamil, will maintain on telemetry monitoring. #7. Anxiety and depression: We will continue patient home Paxil as well as clorazepate as needed regimen. #8. History of VTE: Patient is not chronically anticoagulated per current list,recent tenecteplase administration as noted, holding on chemoprophylaxis given this. #9. History splenomegaly: Patient status post prior splenectomy. #10. Allergic rhinitis: We will continue patient home fluticasone regimen. #11. Obesity: Weight loss and lifestyle changes encouraged, nutrition consultedper stroke admission protocol. #12. Asthma: Does have budesonide listed on home regimen however she states shedoes not use this, will have as needed albuterol, encourage head of bed and I-S. #13. ELISHA: CPAP nightly. #14. DVT prophylaxis: SCDs. #15. CODE status: Patient SANDOVAL is her daughter and her granddaughter and living will is currently in place but she notes that some items need to be updated. Discussed CODE status at length including difference between FULL code,DNR-CCA and DNR-CC status. Following discussions about the differences in these status, requested Full Code status. Advanced Care Planning Face to Face Time: 16minutes. Admission Evaluation Time spent evaluating chart, patient history, patient evaluation, care planning and discussion with specialists: 75 minutes. Charges/Coding Visit Charges Inpatient E&M: 45553 Init Hosp L3 Procedures Hospitalists Procedures: 72345 Advncd Care Plan 30 Min 12/16/222036 <Electronically signed by Kitty Brooks MD> Cosigner Signature (if applicable): CC: Dr. Kitty Brooks MD; Dr. Yenifer Gonsalez MD~ Signed [facility] Work Phone: [phone]) 441-794103-22-[address] Chaudhari [facility] December 16, 2022 7:52pm Note Date/Time December 16, 2022 6:4 3pm [facility] Medical Records Department [address] [place] [address] Emergency Department Summary 12/16/22 MR#: [id number] Acct: [id number] Name: ELIZABETH RODRIGEZ Rep #:[id number] : 1945 77 From: Alejandro Chaudhari MD PCP: Dr. Yenifer Gonsalez MD Status:RE G ER Location: ED HPI History of Present Illness Chief Complaint: Neuro S/Sx Detail of Chief Complaint: Was evaluated in triage for possible stroke. Informant: patient Onset/Context/Timing Onset: Hours (1731) Context: Sudden Onset Timing: Continuous Onset: Diplopia, vertigo and problems with vision Current Severity: Mild Maximum Severity: Moderate Worsened by: Nothing Relieved by: Nothing Associated Symptoms Associated Symptoms: Positive for Headache and Nausea; Negative for Vomiting or Chest Pain Narrative Narrative: Patient is a 77-year-old woman who by squad for dizziness. Patient has history of type 2 diabetes and hypertension. She also has hypercholesterolemia. She tr no antithrombotic or anticoagulant. Patient denies trouble with speech or swallowing. Patient denies paresthesia, anesthesia or motor weakness upper lower extremity. Prior similar symptoms: No Recent Ill[facility] Medical History (Updated 12/16/22 @ 19:[address] Kitty Brooks MD) Anxiety and depression Arthritis BMI 36.0-36.9,adult Diabetes Hemorrhoids Herpes simplex vulvovaginitis History of blood clots History of PSVT (paroxysmal supraventricular tachycardia) Hyperlipidemia Lichen sclerosus Obesity Sarcoidosis Sleep apnea Spleen anomaly Splenomegaly Vulvar dermatitis Home Medications paroxetine HCl 20 mg tablet (Paxil) 20 mg PO BID DEPRESSION 04/03/16 [History Last Taken 10/28/20] verapamil 80 mg tablet 80 mg PO QHS HEART 04/03/16 [History Last Taken 10/28/20] cranberry fruit concentrate 250 mg chewable tablet (Azo Cranberry) 250 mg PO TIDsupplement 06/05/19 [History Last Taken 10/28/20] metformin 500 mg tablet 500 mg PO BID blood sugar 06/05/19 [History Last Taken 10/28/20] naproxen 500 mg tablet 500 mg PO BID pain 06/05/19 [History Last Taken 10/28/20] gabapentin 400 mg capsule 400 mg PO BID nerve pain 10/29/20 [History Last Taken 10/28/20] clorazepate dipotassium 7.5 mg tablet (Tranxene T-Tab) 7.5 mg PO BID PRN Pddyvul90/14/21 [History Last Taken Unknown] fluticasone propionate 50 mcg/actuation nasal spray,suspension (Flonase Allergy Relief) 1 spray intranasal DAILY 09/09/21 [History Last Taken Unknown] rosuvastatin 5 mg tablet (Crestor) 5 mg PO QODAY 09/09/21 [History Last Taken Unknown] diazepam 5 mg tablet 5 mg PO Q8 PRN Muscle Spasm #12 tabs 08/07/22 [Rx Last Taken Unknown] Allergy/AdvReac Type Severity Reaction Status Date / Time lidocaine Allergy Intermediate tachycardia Verified 12/16/22 18:27 Penicillins Allergy Hives Verified 12/16/22 18:27 atorvastatin AdvReac Pain in Verified 12/16/22 18:27 joints hydrocodone bitartrate AdvReac Vomiting Verified 12/16/22 18:27 [From Vicodin] oxycodone HCl [From Percocet] AdvReac Vomiting Verified 12/16/22 18:27 Family History (Updated 12/16/22 @ 19:[address] 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 ED Constitutional Constitutional ED: Denies chills, fever(s), subjective, sweats or weakness Eyes Eyes: Reports blurry vision, change in vision and diplopia ENT ENT ED: Denies ear pain, rhinorrhea or sore throat Cardiovascular Cardiovascular: Denies chest pain, palpitations, paroxysmal nocturnal dyspnea orracing heartbeat Respiratory/Chest Respiratory/Chest: Denies cough, dyspnea, dyspnea on exertion or paroxysmal nocturnal dyspnea Gastrointestinal Gastrointestinal: Reports nausea; Denies abdominal pain, constipation, diarrhea,melena or vomiting Genitourinary Genitourinary ED: Denies dysuria, hematuria or urinary frequency Musculoskeletal Musculoskeletal: Denies arthralgias, back pain, myalgias or neck pain Integumentary Denies Abrasions or rash Neurologic Neurologic: Reports headache(s); Denies paresthesias or weakness Psychiatric Psychiatric: Denies anxiety or depression Endocrine Endocrinology: Denies polydipsia, polyphagia or polyuria Hematologic/Lymphatic Hematologic/Lymphatic: Denies easy bleeding or easy bruising EXAM Physical Exam Const Vital Signs: 12/16/22 18:25 12/16/22 18:49 12/16/22 18:49 Temperature 97.4 F L 98.3 F Temperature Source Temporal Temporal Pulse Rate 96 98 Respiratory Rate 18 16 Blood Pressure 137/75 H 142/84 H Blood Pressure Mean 95 103 Blood Pressure Source Blood Pressure Position Blood Pressure Location Pulse Ox 96 94 Oxygen Delivery Method Room Air Room Air Room Air 12/16/22 19:00 12/16/22 19:21 12/16/22 19:30 Temperature 97.7 F L Temperature Source Oral Pulse Rate 92 96 Respiratory Rate 15 17 Blood Pressure 142/84 H 152/85 H 142/94 H Blood Pressure Mean 103 110 Blood Pressure Source Blood Pressure Position Blood Pressure Location Pulse Ox 98 94 Oxygen Delivery Method Room Air Room Air 12/16/22 19:11 Temperature 97.7 F L Temperature Source Oral Pulse Rate 94 Respiratory Rate 14 Blood Pressure 152/85 H Blood Pressure Mean 107 Blood Pressure Source Monitor Blood Pressure Position Semi-Fowlers Blood Pressure Location Left Arm Pulse Ox 94 Oxygen Delivery Method Room Air Positive well nourished, well developed and obese Constitutional Narrative: Head is normocephalic. General Appearance ED: well developed and NAD Nutritional Appearance: obese HEENT Reports moist mucous membranes atraumatic Eyes PERRL and EOMs intact bilaterally Eyes Narrative: There is no ecchymosis. Patient does have a visual field cut. She has a right homonymous upper quadrantanopsia General Eye ED: Negative for pale conjunctiva or scleral icterus Neck no lymphadenopathy, supple and no JVD Chest Wall inspection of chest normal and palpation of chest normal Resp normal respiratory effort and clear to auscultation bilaterally Cardio Rate: regular rate Rhythm: regular rhythm Heart Sounds: S1 normal and S2 normal GI normal to inspection, nondistended, normoactive bowel sounds Back/Spine no CVA tenderness Extremity normal to inspection Neuro oriented x3, CN's II-XII intact bilaterally and no sensory deficits noted Tamika Coma Scale: document GCS findings Spontaneous Obeys Commands Oriented 15 Sensorium / Orientation: alert Speech: speech normal Psych mental status grossly normal Skin no wounds General Skin Exam: Negative for jaundice Lesions: no lesions Rashes: no rashes NIHSS NIHSS Initial: 1a Level of Consciousness: 0 1b LOC Questions (Score 2 if aphasic/stupor): 0 1c LOC Commands (Only score 1st attempt): 0 2 Best Gaze (If aphasic, use reflexive mvmts.): 0 3 Visual: 1 4 Facial Palsy: 0 5 Motor Arm Right (UN = amputation/fusion): 0 5 Motor Arm Left: 0 6 Motor Leg Right: 0 6 Motor Leg Left: 0 7 Limb ataxia (Only + if out of proportion): 0 8 Sensory (Aphasia/stupor=0 or 1, coma=2): 0 9 Best Language: 0 10 Dysarthria (mute, coma=2, intubated=UN): 0 11 Extinction and Inattention (only scored if +): 0 Total Score: 1 MDM MDM MDM Narrative Medical decision making narrative: Differential diagnosis would be peripheral versus central vertigo. In light of diplopia, vertigo with a right homonymous upper quadrant opiate findings are concerning for a posterior stroke cerebral stroke. Stroke order set was initiated. Will contact neurologist at [facility]. Patient is within the window for tPA. Contraindications none. Dr. Waters the neurologist at [facility] had patient ambulate. She is now complaining of numbness left side. She cannot ambulate. He went over the risk factors of thrombolytic. She gave consent. Tenecteplase was ordered. History & Record Review Additional record(s) reviewed:: Prior inpatient record, Prior outpatient record and Prior labs Lab Data Labs: Laboratory Results - last 24 hr 12/16/22 12/16/22 12/16/22 18:35 18:35 18:35 WBC 11.5 H RBC 4.85 Hgb 14.7 Hct 45.4 MCV 93.6 MCH 30.3 MCHC 32.4 RDW Std Deviation 53.9 H RDW Coeff of Kadi 15.6 H Plt Count 421 MPV 10.5 Immature Gran % (Auto) 0.300 Neut % (Auto) 47.8 Lymph % (Auto) 37.0 [place] % (Auto) 12.3 H Eos % (Auto) 2.2 Baso % (Auto) 0.4 Absolute Neuts (auto) 5.5 Absolute Lymphs (auto) 4.24 Nucleated RBC % 0 PT 13.0 INR 1.0 APTT 24.5 Sodium 136 Potassium 3.8 Chloride 104 Carbon Dioxide 23.0 Anion Gap 9 BUN 17 Creatinine 1.01 Estim Creat Clear Calc 36.32 Est GFR (MDRD) Af Amer 69 Est GFR (MDRD) Non-Af 57 L BUN/Creatinine Ratio 16.8 Glucose 159 H Calcium 9.8 Troponin I High Sens 5 POC Glucose 12/16/22 18:47 WBC RBC Hgb Hct MCV MCH MCHC RDW Std Deviation RDW Coeff of Kadi Plt Count MPV Immature Gran % (Auto) Neut % (Auto) Lymph % (Auto) [place] % (Auto) Eos % (Auto) Baso % (Auto) Absolute Neuts (auto) Absolute Lymphs (auto) Nucleated RBC % PT INR APTT Sodium Potassium Chloride Carbon Dioxide Anion Gap BUN Creatinine Estim Creat Clear Calc Est GFR (MDRD) Af Amer Est GFR (MDRD) Non-Af BUN/Creatinine Ratio Glucose Calcium Troponin I High Sens POC Glucose 141 H Radiography Diagnostic Testing: Clinical Impression(s) from Imaging Studies Brain CT 12/16/22 18:31 IMPRESSION: No acute intracranial or calvarial abnormality. Electronically Signed: Jj Puente DO at 18:54 EDT Reading Location ID and State: [facility] Tel [phone], Service support , ADDENDUM: 12/16/22 1914 IMPRESSION: No acute intracranial or calvarial abnormality. N.B. : The above Results were Read Back by Jj Puente DO to Alejandro Chaudhari MD, and understanding confirmed on 12/16/2022 19:07:51 (ET). Electronically Signed: Jj Puente DO at 18:54 EDT Reading Location ID and State: [employer] / [facility] Tel [phone], Service support , Head/Neck CTA 12/16/22 18:32 IMPRESSION: 1. Tortuous carotid arteries was minimal atherosclerotic changes at the left carotid bulb. There is no significant stenosis. 2. Normal vertebral arteries. 3. 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 The A2 segment is supplied via the patent anterior communicating artery. 4. Hypoplastic P1 segment of the left posterior cerebral artery. The posterior artery is supplied via the patent posterior communicating artery. 5. No evidence of aneurysm or large vessel occlusion. Electronically Signed: Jj Puente DO at 19:06 EDT Reading Location ID and State: [employer] / [facility] Tel [phone], Service support , ADDENDUM: 12/16/22 1915 IMPRESSION: 1. Tortuous carotid arteries was minimal atherosclerotic changes at the left carotid bulb. There is no significant stenosis. 2. Normal vertebral arteries. 3. 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 The A2 segment is supplied via the patent anterior communicating artery. 4. Hypoplastic P1 segment of the left posterior cerebral artery. The posterior artery is supplied via the patent posterior communicating artery. 5. No evidence of aneurysm or large vessel occlusion. N.B. : The above Results were Read Back by Jj Puente DO to Alejandro Chaudhari MD, and understanding confirmed on 12/16/2022 19:09:13 (ET). Electronically Signed: Jj Puente DO at 19:06 EDT Reading Location ID and State: [facility] / [place] Tel [phone], Service support , Chest X-Ray 12/16/22 19:25 IMPRESSION: Degenerative changes, as described above. No demonstrated acute cardiopulmonary process. No major interval change. Electronically Signed: Jj Puente DO at 19:51 EDT Reading Location ID and State: [facility] / [place] Tel [phone], Service support , EKG Initial EKG: Attestation: I personally reviewed and interpreted this EKG as follows: Interpretation: Sinus Tachycardia (Sinus tachycardia rate of 101. W[place] interval 262 ms. QRS duration 80 ms. QT durations 168 ms. Bentley is normal. There is mild nonspecific changes noted.) Stroke Documentation Questions Stroke Team Activated: Yes Reviewed Inclusion/Exclusion criteria: Yes No contraindications from thrombolytic administration: Yes Risks, Benefits, Alternatives Discussed: Yes Critical Care Time Critical Care Time: Yes Critical care time (excluding procedures): 30-74 minutes (33 minutes), Includingtime spent: (History, physical, documentation, review of prior records), Discussing w/Patient &/or Family/Architectural Intern, Discussing w/Consultants, ArrangingAdmission or Transfer, Performing Direct Patient Care at Bedside and - (Administration of tenecteplase) Discharge Plan Dx/Rx/DC Orders Clinical Impression: 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 Call [facility] ([phone]) or report to the closest Emergency Room. Call 911 if necessary. 12/16/221951 <Electronically signed by Alejandro Chaudhari MD> Cosigner Signature (if applicable): CC: Dr. Yenifer Gonsalez MD ~ Signed [facility] Work Phone: 1(350) 831-845403-22-[address] Chaudhari [facility] December 16, 2022 7:52pm Note Date/Time December 16, 2022 6:4 3pm [facility] Medical Records Department [address] [place] [address] Emergency Department Summary 12/16/22 MR#: [id number] Acct: [id number] Name: ELIZABETH RODRIGEZ Rep #:[id number] : 1945 77 From: Alejandro Chaudhari MD PCP: Dr. Yenifer Gonsalez MD Status:RE G ER Location: ED HPI History of Present Illness Chief Complaint: Neuro S/Sx Detail of Chief Complaint: Was evaluated in triage for possible stroke. Informant: patient Onset/Context/Timing Onset: Hours (1731) Context: Sudden Onset Timing: Continuous Onset: Diplopia, vertigo and problems with vision Current Severity: Mild Maximum Severity: Moderate Worsened by: Nothing Relieved by: Nothing Associated Symptoms Associated Symptoms: Positive for Headache and Nausea; Negative for Vomiting or Chest Pain Narrative Narrative: Patient is a 77-year-old woman who by squad for dizziness. Patient has history of type 2 diabetes and hypertension. She also has hypercholesterolemia. She tr no antithrombotic or anticoagulant. Patient denies trouble with speech or swallowing. Patient denies paresthesia, anesthesia or motor weakness upper lower extremity. Prior similar symptoms: No Recent Illness/Hospitalization: No [facility] Medical History (Updated 12/16/22 @ 19:[address] Kitty Brooks MD) Anxiety and depression Arthritis BMI 36.0-36.9,adult Diabetes Hemorrhoids Herpes simplex vulvovaginitis History of blood clots History of PSVT (paroxysmal supraventricular tachycardia) Hyperlipidemia Lichen sclerosus Obesity Sarcoidosis Sleep apnea Spleen anomaly Splenomegaly Vulvar dermatitis Home Medications paroxetine HCl 20 mg tablet (Paxil) 20 mg PO BID DEPRESSION 04/03/16 [History Last Taken 10/28/20] verapamil 80 mg tablet 80 mg PO QHS HEART 04/03/16 [History Last Taken 10/28/20] cranberry fruit concentrate 250 mg chewable tablet (Azo Cranberry) 250 mg PO TIDsupplement 06/05/19 [History Last Taken 10/28/20] metformin 500 mg tablet 500 mg PO BID blood sugar 06/05/19 [History Last Taken 10/28/20] naproxen 500 mg tablet 500 mg PO BID pain 06/05/19 [History Last Taken 10/28/20] gabapentin 400 mg capsule 400 mg PO BID nerve pain 10/29/20 [History Last Taken 10/28/20] clorazepate dipotassium 7.5 mg tablet (Tranxene T-Tab) 7.5 mg PO BID PRN Zttoemp03/14/21 [History Last Taken Unknown] fluticasone propionate 50 mcg/actuation nasal spray,suspension (Flonase Allergy Relief) 1 spray intranasal DAILY 09/09/21 [History Last Taken Unknown] rosuvastatin 5 mg tablet (Crestor) 5 mg PO QODAY 09/09/21 [History Last Taken Unknown] diazepam 5 mg tablet 5 mg PO Q8 PRN Muscle Spasm #12 tabs 05/03/22 [Rx Last Taken Unknown] Allergy/AdvReac Type Severity Reaction Status Date / Time lidocaine Allergy Intermediate tachycardia Verified 12/16/22 18:27 Penicillins Allergy Hives Verified 12/16/22 18:27 atorvastatin AdvReac Pain in Verified 12/16/22 18:27 joints hydrocodone bitartrate AdvReac Vomiting Verified 12/16/22 18:27 [From Vicodin] oxycodone HCl [From Percocet] AdvReac Vomiting Verified 12/16/22 18:27 Family History (Updated 12/16/22 @ 19:[address] 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 ED Constitutional Constitutional ED: Denies chills, fever(s), subjective, sweats or weakness Eyes Eyes: Reports blurry vision, change in vision and diplopia ENT ENT ED: Denies ear pain, rhinorrhea or sore throat Cardiovascular Cardiovascular: Denies chest pain, palpitations, paroxysmal nocturnal dyspnea orracing heartbeat Respiratory/Chest Respiratory/Chest: Denies cough, dyspnea, dyspnea on exertion or paroxysmal nocturnal dyspnea Gastrointestinal Gastrointestinal: Reports nausea; Denies abdominal pain, constipation, diarrhea,melena or vomiting Genitourinary Genitourinary ED: Denies dysuria, hematuria or urinary frequency Musculoskeletal Musculoskeletal: Denies arthralgias, back pain, myalgias or neck pain Integumentary Denies Abrasions or rash Neurologic Neurologic: Reports headache(s); Denies paresthesias or weakness Psychiatric Psychiatric: Denies anxiety or depression Endocrine Endocrinology: Denies polydipsia, polyphagia or polyuria Hematologic/Lymphatic Hematologic/Lymphatic: Denies easy bleeding or easy bruising EXAM Physical Exam Const Vital Signs: 12/16/22 18:25 12/16/22 18:49 12/16/22 18:49 Temperature 97.4 F L 98.3 F Temperature Source Temporal Temporal Pulse Rate 96 98 Respiratory Rate 18 16 Blood Pressure 137/75 H 142/84 H Blood Pressure Mean 95 103 Blood Pressure Source Blood Pressure Position Blood Pressure Location Pulse Ox 96 94 Oxygen Delivery Method Room Air Room Air Room Air 12/16/22 19:00 12/16/22 19:21 12/16/22 19:30 Temperature 97.7 F L Temperature Source Oral Pulse Rate 92 96 Respiratory Rate 15 17 Blood Pressure 142/84 H 152/85 H 142/94 H Blood Pressure Mean 103 110 Blood Pressure Source Blood Pressure Position Blood Pressure Location Pulse Ox 98 94 Oxygen Delivery Method Room Air Room Air 12/16/22 19:11 Temperature 97.7 F L Temperature Source Oral Pulse Rate 94 Respiratory Rate 14 Blood Pressure 152/85 H Blood Pressure Mean 107 Blood Pressure Source Monitor Blood Pressure Position Semi-Fowlers Blood Pressure Location Left Arm Pulse Ox 94 Oxygen Delivery Method Room Air Positive well nourished, well developed and obese Constitutional Narrative: Head is normocephalic. General Appearance ED: well developed and NAD Nutritional Appearance: obese HEENT Reports moist mucous membranes atraumatic Eyes PERRL and EOMs intact bilaterally Eyes Narrative: There is no ecchymosis. Patient does have a visual field cut. She has a right homonymous upper quadrantanopsia General Eye ED: Negative for pale conjunctiva or scleral icterus Neck no lymphadenopathy, supple and no JVD Chest Wall inspection of chest normal and palpation of chest normal Resp normal respiratory effort and clear to auscultation bilaterally Cardio Rate: regular rate Rhythm: regular rhythm Heart Sounds: S1 normal and S2 normal GI normal to inspection, nondistended, normoactive bowel sounds Back/Spine no CVA tenderness Extremity normal to inspection Neuro oriented x3, CN's II-XII intact bilaterally and no sensory deficits noted Ortley Coma Scale: document GCS findings Spontaneous Obeys Commands Oriented 15 Sensorium / Orientation: alert Speech: speech normal Psych mental status grossly normal Skin no wounds General Skin Exam: Negative for jaundice Lesions: no lesions Rashes: no rashes NIHSS NIHSS Initial: 1a Level of Consciousness: 0 1b LOC Questions (Score 2 if aphasic/stupor): 0 1c LOC Commands (Only score 1st attempt): 0 2 Best Gaze (If aphasic, use reflexive mvmts.): 0 3 Visual: 1 4 Facial Palsy: 0 5 Motor Arm Right (UN = amputation/fusion): 0 5 Motor Arm Left: 0 6 Motor Leg Right: 0 6 Motor Leg Left: 0 7 Limb ataxia (Only + if out of proportion): 0 8 Sensory (Aphasia/stupor=0 or 1, coma=2): 0 9 Best Language: 0 10 Dysarthria (mute, coma=2, intubated=UN): 0 11 Extinction and Inattention (only scored if +): 0 Total Score: 1 MDM MDM MDM Narrative Medical decision making narrative: Differential diagnosis would be peripheral versus central vertigo. In light of diplopia, vertigo with a right homonymous upper quadrant opiate findings are concerning for a posterior stroke cerebral stroke. Stroke order set was initiated. Will contact neurologist at [facility]. Patient is within the window for tPA. Contraindications none. Dr. Waters the neurologist at [facility] had patient ambulate. She is now complaining of numbness left side. She cannot ambulate. He went over the risk factors of thrombolytic. She gave consent. Tenecteplase was ordered. History & Record Review Additional record(s) reviewed:: Prior inpatient record, Prior outpatient record and Prior labs Lab Data Labs: Laboratory Results - last 24 hr 12/16/22 12/16/22 12/16/22 18:35 18:35 18:35 WBC 11.5 H RBC 4.85 Hgb 14.7 Hct 45.4 MCV 93.6 MCH 30.3 MCHC 32.4 RDW Std Deviation 53.9 H RDW Coeff of Kadi 15.6 H Plt Count 421 MPV 10.5 Immature Gran % (Auto) 0.300 Neut % (Auto) 47.8 Lymph % (Auto) 37.0 [place] % (Auto) 12.3 H Eos % (Auto) 2.2 Baso % (Auto) 0.4 Absolute Neuts (auto) 5.5 Absolute Lymphs (auto) 4.24 Nucleated RBC % 0 PT 13.0 INR 1.0 APTT 24.5 Sodium 136 Potassium 3.8 Chloride 104 Carbon Dioxide 23.0 Anion Gap 9 BUN 17 Creatinine 1.01 Estim Creat Clear Calc 36.32 Est GFR (MDRD) Af Amer 69 Est GFR (MDRD) Non-Af 57 L BUN/Creatinine Ratio 16.8 Glucose 159 H Calcium 9.8 Troponin I High Sens 5 POC Glucose 12/16/22 18:47 WBC RBC Hgb Hct MCV MCH MCHC RDW Std Deviation RDW Coeff of Kadi Plt Count MPV Immature Gran % (Auto) Neut % (Auto) Lymph % (Auto) [place] % (Auto) Eos % (Auto) Baso % (Auto) Absolute Neuts (auto) Absolute Lymphs (auto) Nucleated RBC % PT INR APTT Sodium Potassium Chloride Carbon Dioxide Anion Gap BUN Creatinine Estim Creat Clear Calc Est GFR (MDRD) Af Amer Est GFR (MDRD) Non-Af BUN/Creatinine Ratio Glucose Calcium Troponin I High Sens POC Glucose 141 H Radiography Diagnostic Testing: Clinical Impression(s) from Imaging Studies Brain CT 12/16/22 18:31 IMPRESSION: No acute intracranial or calvarial abnormality. Electronically Signed: Jj Puente DO at 18:54 EDT Reading Location ID and State: [facility] / [place] Tel [phone], Service support , ADDENDUM: 12/16/221913 IMPRESSION: No acute intracranial or calvarial abnormality. N.B. : The above Results were Read Back by Jj Puente DO to Alejandro Chaudhari MD, and understanding confirmed on 12/16/2022 19:07:51 (ET). Electronically Signed: Jj Puente DO at 18:54 EDT Reading Location ID and State: [facility] / [place] Tel [phone], Service support , Head/Neck CTA 12/16/22 18:32 IMPRESSION: 1. Tortuous carotid arteries was minimal atherosclerotic changes at the left carotid bulb. There is no significant stenosis. 2. Normal vertebral arteries. 3. 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 The A2 segment is supplied via the patent anterior communicating artery. 4. Hypoplastic P1 segment of the left posterior cerebral artery. The posterior artery is supplied via the patent posterior communicating artery. 5. No evidence of aneurysm or large vessel occlusion. Electronically Signed: Jj Puente DO at 19:06 EDT Reading Location ID and State: [facility] / [place] Tel [phone], Service support , ADDENDUM: 12/16/221914 IMPRESSION: 1. Tortuous carotid arteries was minimal atherosclerotic changes at the left carotid bulb. There is no significant stenosis. 2. Normal vertebral arteries. 3. 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 The A2 segment is supplied via the patent anterior communicating artery. 4. Hypoplastic P1 segment of the left posterior cerebral artery. The posterior artery is supplied via the patent posterior communicating artery. 5. No evidence of aneurysm or large vessel occlusion. N.B. : The above Results were Read Back by Jj Puente DO to Alejandro Chaudhari MD, and understanding confirmed on 12/16/2022 19:09:13 (ET). Electronically Signed: Jj Puente DO at 19:06 EDT Reading Location ID and State: [address] [place] [address] Tel [phone], Service support , Chest X-Ray 12/16/22 19:25 IMPRESSION: Degenerative changes, as described above. No demonstrated acute cardiopulmonary process. No major interval change. Electronically Signed: Jj Puente DO at 19:51 EDT Reading Location ID and State: [address] [place] [address] Tel [phone], Service support , EKG Initial EKG: Attestation: I personally reviewed and interpreted this EKG as follows: Interpretation: Sinus Tachycardia (Sinus tachycardia rate of 101. W[place] interval 262 ms. QRS duration 80 ms. QT durations 168 ms. Bentley is normal. There is mild nonspecific changes noted.) Stroke Documentation Questions Stroke Team Activated: Yes Reviewed Inclusion/Exclusion criteria: Yes No contraindications from thrombolytic administration: Yes Risks, Benefits, Alternatives Discussed: Yes Critical Care Time Critical Care Time: Yes Critical care time (excluding procedures): 30-74 minutes (33 minutes), Includingtime spent: (History, physical, documentation, review of prior records), Discussing w/Patient &/or Family/Architectural Intern, Discussing w/Consultants, ArrangingAdmission or Transfer, Performing Direct Patient Care at Bedside and - (Administration of tenecteplase) Discharge Plan Dx/Rx/DC Orders Clinical Impression: 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 Call [employer] [facility] ([phone]) or report to the closest Emergency Room. Call 911 if necessary. 12/16/221951 <Electronically signed by Alejandro Chaudhari MD> Cosigner Signature (if applicable): CC: Dr. Yenifer Gonsalez MD ~ Signed [facility] Work Phone: 1(863) 293-444603-22-2023 Miscellaneous Notes* Telephone Encounter - Yenifer Gonsalez MD - 12/16/2022 8:22 AM EDT Okayed * Telephone Encounter - Fany Tobar LPN - 12/15/2022 3:30 PM EDT Patient has been identified by name and date of : Yes Patient phones for refill(s): Requested Prescriptions Pending Prescriptions Disp Refills clobetasol (TEMOVATE) 0.05 % cream 60 g 5 Sig: Apply 1 application to affected area once daily as needed. naproxen (NAPROSYN) 500 mg tablet 180 tablet 3 Sig: Take 1 tablet by mouth twice daily as needed (for pain/inflammation). Take with food. Date of last office visit in primary care: 08/28/2022 Follow-up: 01/26/2023 Last 2 Encounter Wt Readings: Date: Wt: 08/28/2022 83.1 kg (183 lb 3.2 oz) 06/24/2022 79.8 kg (176 lb) Previous labs/tests for medication: Not applicable Please advise. Thank you. Fany Tobar LPN * Telephone Encounter - Gissell Proctor - 12/15/2022 1:31 PM EDT Patient has been identified by name and date of : Yes Requested Prescriptions Pending Prescriptions Disp Refills clobetasol (TEMOVATE) 0.05 % cream 60 g 5 Sig: Apply 1 application to affected area once daily as needed. naproxen (NAPROSYN) 500 mg tablet 180 tablet 3 Sig: Take 1 tablet by mouth twice daily as needed (for pain/inflammation). Take with food. RX INSTRUCTIONS: Patient aware RX will be sent to pharmacy. No need to notify patient. Gissell Proctor documented [facility] History of Present illness Narrative* Mariangel Arteaga PA-C - 11/20/2022 4:00 PM EST SPINE ESTABLISHED This is a virtual visit using [employer] video visit. It required patient-provider interaction for themedical decision making as documented below. DATE OF SERVICE: 11/20/2022 DATE OF LAST VISIT: Visit date not found SUBJECTIVE: HPI:Elizabeth Rodrigez is a 77 year old female Follow up for image review. She continues to describe numbness in the hands, imbalance, low back and leg pain. Slow gait. Intermittent pain that radiates from the thumb into the wrist bilaterally. Burning pain into the first two digits. No new symptoms since her last visit. REVIEW OF SYSTEMS: GENERAL: No weight loss or malaise MUSCULOSKELETAL: see HPI NEURO: No history of headaches, syncope, paralysis, seizures or tremors MEDICATIONS: acyclovir (ZOVIRAX) 400 mg tablet^Take 1 tablet by mouth twice daily.^Disp: 180 tablet^Rfl: 3 gabapentin (NEURONTIN) 300 mg capsule^Take 1 capsule by mouth three times daily.^Disp: 270 capsule^Rfl: 3 phenazopyridine (PYRIDIUM) 200 mg tablet^Take 1 tablet by mouth three times daily as needed. As directed for UTIs^Disp: 6 tablet^Rfl: 0 PARoxetine (PAXIL) 20 mg tablet^Take 1 tablet by mouth twice daily.^Disp: 180 tablet^Rfl: 3 rosuvastatin (CRESTOR) 5 mg tablet^Take 1 tablet by mouth once daily. As directed^Disp: 90 tablet^Rfl: 3 clobetasol (TEMOVATE) 0.05 % cream^Apply 1 application to affected area once daily as needed.^Disp:60 g^Rfl: 5 diazePAM (VALIUM) 5 mg tablet^Take 1 tablet by mouth every 8 hours as needed for muscle spasm.^Disp: ^Rfl: CPAP^Initiate CPAP @ 12 cm of water with humidification. Mask (per patient preference) optional chin strap (if indicated) , filters, tubing, humidifier and lifetime supplies.^Disp: 1 Each^Rfl: 0 alendronate (FOSAMAX) 70 mg tablet^Take 1 tablet by mouth one time a week. Take with a full glass of water, on an empty stomach; do NOT lie down for 30minutes.^Disp: 12 tablet^Rfl: 3 verapamil (CALAN, ISOPTIN) 80 mg tablet^Take one pill daily; take another pill daily as needed for heart racing^Disp: 180 tablet^Rfl: 3 metFORMIN ER (GLUCOPHAGE XR) 500 mg 24 hr tablet^Take 1 tablet by mouth twice daily before meals. or as directed^Disp: 180 tablet^Rfl: 3 albuterol HFA (PROVENTIL HFA, VENTOLIN HFA) 90 mcg/actuation inhaler^INHALE 2 PUFFS BY MOUTH UP TO 4 TIMES DAILY NEEDED^Disp: ^Rfl: naproxen (NAPROSYN) 500 mg tablet^Take 1 tablet by mouth twice daily as needed (for pain/inflammation). Take with food.^Disp: 180 tablet^Rfl: 3 fluticasone (FLONASE) 50 mcg/actuation nasal spray^Use 2 Sprays in each nostril once daily. for sinus drainage and genstion^Disp: 1 Bottle^Rfl: 0 pumpkin seed extract-soy germ (AZO BLADDER CONTROL) 300 mg cap^Take 1-3 capsules by mouth once daily. (usually just needs 1 capsule daily)^Disp: ^Rfl: COMPOUNDED PRESCRIPTION^CPAP mask^Disp: 1 Each^Rfl: 0 COMPOUNDED PRESCRIPTION^CPAP mask--Mirage FX with formal mask fitting^Disp: 11 Each^Rfl: 0 Patient Entered Questionnaires Spine Questions 08/28/2022 11/20/2022 Pain Location: Leg Leg Pain Duration: More than 5 years - Pain over last 6 months: Every day or nearly every day in the past 6 months - Symptoms from neck/cervical spine: No Yes Employment Status: Retired Retired Involved in law suit/legal claim: No - Spine Red Flags 08/28/2022 Any type of cancer: No Unexplained fever: No Bowel or bladder disfunction: Yes Unintentional weight loss: No Osteoporosis: Yes Neck Questionnaires 11/20/2022 Benzel Modified KENDRA Score 11 (A lower score indicates increased pain and issues.) PROMIS Score Percentiles Physical Health 08/28/2022 11/20/2022 Physical Function Percentile 12 8 Sleep Percentile 27* 34 Fatigue Percentile 8 18* Pain Interference Percentile 8 5 PROMIS SOCIAL ROLE SCORE 08/28/2022 11/20/2022 Social Role Satisfaction Percentile 31 31 PROMIS Global Health Scale 05/21/2020 06/15/2022 08/28/2022 Physical Health Percentile 22* 15 15 Mental Health Percentile 19* 13 19* Percentiles provide an indication of how the patient's score ranks in relation to the general population. Higher percentile rankings indicate better function/quality of life. 50th percentile is the average of the general population and indicates half of respondents had a worse score. Depression Screening: PHQ-9 05/22/2019 06/15/2022 08/28/2022 Score 9 12 12 PHQ-9 Self-harm Question 05/22/2019 06/15/2022 08/28/2022 Thoughts that you would be better off , or of hurting yourself in some way 0 1 1 PHQ-9 Self-Harm (Item 9) response options: 0 Not at all 1 Several days 2 More than half the days 3 Nearly every day PHQ-9 Levels: 0-4 No to mild depression 5-9 Mild depression 10-14 Moderate depression 15-19 Moderately severe depression 20-27 Severe depression OBJECTIVE: PHYSICAL EXAM: There were no vitals taken for this visit. Virtual visit NEURO TESTS: None DATA REVIEW:Diagnostic tests reviewed for today's visit, films/specimens were personally reviewed by me: [facility] records independently reviewed ASSESSMENT/PLAN No diagnosis found. Virtual visit for MRI review. Originally seen with lumbar stenosis and claudication. MRI thoracic and cervical MRI ordered because of hx of imbalance, numbness in the hands and slow gait. Thoracic MRI stable. Cervical MRI with degenerative changes contributing to moderate cental narrowing and severe foraminal narrowing most significant at C5- 6 and C6-7. No myelomalacia and fluid stillpresent surround the cord. Spondylolisthesis of C7-T1. Will order cervical flex/ext X-Ray to further evaluate and rule out mobile spondylolisthesis. With her symptoms being present for 10 years (numbness in the hands) it is unlikely that her slow gait is related to her cervical stenosis. She has been experiencing more burning pain in the thumbs to the wrists. Does not radiate down the arm. Soundsmore like carpel tunnel. It is very bothersome. We will further evaluate with EMG. Discussed her lumbar concerns. At this time she is mainly concerned with her slow gait. She states her mother, grandmother, aunt and uncle all developed a slow gait that continued to progress until they could no longer walk. She fears that this is what is happening to her. She denies pain as being the reason why she cannot walk. She feels like her muscles will not move. We discussed trial of epidural injections but she declined for now. She will follow up with neuromuscular as well. Cervical flex/ext X-Ray EMG arms The majority of the visit was spent counseling and/or coordinating care for the patient. Total faceto face time was 30 minutes. SIGNATURE: Mariangel Arteaga PA-C PATIENT NAME: Elizabeth Rodrigez DATE: November 20, 2022 TIME: 4:00 PM PAGER: documented in this encounter[facility] Miscellaneous Notes* Telephone Encounter - Deena Escudero RN - 11/07/2022 1:26 AM EST Reason for Call: Patient calling to ask about taking diazepam as prescribed for muscle spasms of upper legs and feet. Outcome: Got to ER now. Patient verbalized understanding of and agreement with plan. Will call daughter to bring her in. Reason for Disposition Muscle jerks, twitches, or spasm of the body or body part [1] Muscle rigidity or tightness AND [2] present now Answer Assessment - Initial Assessment Questions 1. ONSET: Has baseline aching from arthritis, but started getting worse with onset of cold weather in September. Having trouble sleeping due to knee pain and upper inside thigh cramping. Also having spasms in feet. 2. LOCATION: Thighs and knees. 3. SEVERITY: 6/10 right now, constant for last 30 minutes, feels like a cramp. It locks and I can't get it to let loose. Also occurs in her feet and toes spasm superiorly. 4. CAUSE: Doesn't know. Has occurred off and on before. Just moved and has been doing a lot more physical activity than normal on a daily basis. 5. FEVER: denies. 6. OTHER SYMPTOMS: Denies. Intentional loss of 5 pounds. 7. : Post-menopausal. 8. TRAVEL: Denies. Protocols used: Muscle Aches and Body [id number], Muscle Jerks - Tics - [id number] documented in [facility] encounter[facility] [facility] History of Present illness Narrative* Triny Vegas, PT - 11/04/2022 2:28 PM EST Episode Visit Count: 1 Therapist That Will Accept/Oversee The Plan Of Care: Triny Vegas PT Start of Care Date: 11/04/22 Onset Date: 11/04/21 Plan of Care Certification Date: 11/04/22 Next Certification Due Date: 12/16/22 Patient Identified by Name and Date of : Yes REHABILITATION AND SPORTS THERAPY PHYSICAL THERAPY EVALUATION PLAN OF CARE: Assessment: Elizabeth Rodrigez presents with chief complaint of bilateral knee pain and decreased tolerance to walking that interferes with walking in the community, stair negotiation . She presents with impairments in ADL's, gait, independence in exercise, range of motion, strength , and symptom management. PROMIS (Patient-Reported Outcomes Measurement Information System) scores were reviewed and physical function domain identified as a rehabilitation concern. Prognosis for therapy is Good due to: current objective clinical presentation . She will benefit from skilled therapy services to meet the goals established for this plan of care as noted below. Goals for Episode of Care: created on 11/04/22 through 12/16/22 [place] in home exercise program. Patient will decrease pain rating by 2 points to meet minimal clinical important difference for numeric pain rating scale. Patient will increase active ROM of knees to -3-4 extension and 120 flexion to allow pt to to improve performance of ADLs and to improve gait mechanics / gait pattern . Patient will demonstrate increase in LE strength to 4+/5 during manual muscle testing in order to improve function for prior functional tasks. Perform ambulation without pain. Patient Goals: less pain , move around better , be able to walk Planned Interventions, Frequency, and Duration: Current Frequency: 2x/week Duration: 4 weeks Total Number of Visits Planned: 8 Planned Treatment Interventions: Therapeutic exercise (27249), Neuromuscular re- education (54275), Manual therapy (63693), Self-penitentiary management (18572), Patient/Family/Caregiver Education PLAN FOR NEXT VISIT: Will add scifit stepper , check TUG , SAQ standing hip abduction Patient demonstrates good understanding of plan of care and treatment. The above goals and plan of care were discussed and agreed upon by patient/family. SUBJECTIVE: Elizabeth Rodrigez is a 77 year old female seen today for Pt reports pain in right knee greater than left. Knees are sore and unable to take bigs steps because her legs just won't go. Pt using cane off and on in the last year and last month it has been alot. Uses cane in right hand. Uses cane for steadiness, knees being painful is what brought her in today Patient Goals: less pain , move around better , be able to walk Functional Limitations: walking in the community, stair negotiation Prior Level of Function: Independent without limitations Relevant History Employment: Retired Home Environment Patient Lives With: Family Home Type: Ranch Entry To Home: Stairs, Without Rail Intake Information: Prescription present Previous Treatment: Topicals Red Flags Vertebral Fracture Red Flags: Female, Age >70 Vertebral Fracture Clinical Reasoning: (Pt with known old L1 compression fx) Spine History Symptoms Location at Onset: (knees) Pain is Worse Always: Walking Pain is Better Sometimes: (sitting with knees bent) Sleeping Position: Supine Sleep Affected by Pain: Pain keeps from falling asleep, Pain awakens Pain: Pain Pain Level: 7 (at rest 3/10 worse with active extension .) Pain Location: Knee - Right, Knee - Left Description: Aching Frequency: Continuous Post Treatment Pain Post Treatment Pain Level: No Change PROMIS Scales Higher is Better 05/21/2020 06/15/2022 08/28/2022 Phys Func - Score - - 38 (moderate dysfunction) Phys Func - Percentile - - 12 % Social Roles - Score - - 45 (within normal limits) Social Role - Percentile - - 31 % GH Physical - Score 42.3 39.8 (Fair) 39.8 (Fair) GH Physical - Percentile 22 % 15 % 15 % GH Mental - Score 41.1 38.8 (Fair) 41.1 (Good) GH Mental - Percentile 19 % 13 % 19 % T-scores: mean of general population = 50. 5 points is clinically meaningfully difference Percentiles provide an indication of how the patient's score ranks in relation to the general population. Higher percentile rankings indicate better function/quality of life. 50th percentile is the average of the general population and indicates half of respondents had a worse score. Lower is Better 08/28/2022 Fatigue - Score 64 (moderate) Fatigue - Percentile 8 % T-scores: mean of general population = 50. 5 points is clinically meaningfully difference Percentiles provide an indication of how the patient's score ranks in relation to the general population. Higher percentile rankings indicate better function/quality of life. 50th percentile is the average of the general population and indicates half of respondents had a worse score. OBJECTIVE MEASURES WITH LEVEL OF FUNCTION: Posture / Alignment LE Observations: lacks knee extension Knee Observations R Knee Palpation Tenderness: Medial joint line, Lateral joint line, Patellar inferior pole L Knee Palpation Tenderness: Medial joint line, Lateral joint line, Patellar inferior pole LE AROM R Knee Extension: -10 Degrees R Knee Flexion: 115 Degrees L Knee Extension: -10 Degrees L Knee Flexion: 115 Degrees LE Flexibility Flexibility: Hamstring Flexibility, Gastrocnemius Flexibility R Hamstring Flexibility: moderate L Hamstring Flexibility: moderate R Gastrocnemius Flexibility: mild L Gastrocnemius Flexibility: mild LE Joint Mobility R Patellar Mobility: (will check next session) LE Strength R Hip Flexion (L2): 3+/5 R Knee Extension (L3): 4/5 L Hip Flexion (L2): 4-/5 L Knee Extension (L3): 4/5 Functional Strength Functional Strength: decreased tolerance to standing and walking d/t knee pain Special Tests - Knee Knee Special Tests: (crepitus noted with active extension) Gait Weight Bearing Status: FWB Gait: Independent Gait Device: Cane (right hand) Gait Deviations: Right Lower Extremity, Left Lower Extremity, General Deviations Gait Deviations Right Lower Extremity: Heel strike during initial stance decreased, Knee flexion during stance increased, Lacks full knee extension during terminal swing Gait Deviations Left Lower Extremity: Heel strike during initial stance decreased, Knee flexion during stance increased, Lacks full knee extension during terminal swing, Step length decreased General Deviations/Observations: Step length decreased Education: Education Learning Preferences: Demonstration, Explanation, Performance, Printed Materials Barriers: None Learning/educational needs: Home exercise program, Plan of Care Education Provided: Yes, see treatment interventions for education provided Education Provided To: Patient Education Mode/Type: Demonstration, Explanation/Discussion, Literature/Printed Materials, Performance Response to Education/Teach Back: States/Identifies, Return Demonstration TREATMENT: PT Treatment Interventions: Therapeutic Exercise Evaluation Therapeutic Exercise: 1: attempted supine quad sets with towel roll but painful. changed to seated with foot on floor legstraight 2x10 B with improved tolerance 2: seated heel slides 2x10 B 3: eduction on findings of eval and goals for treatment Skilled Intervention: Patient was educated in proper exercise technique and purpose for exercises. Skilled judgment was provided in selection of appropriate interventions. Provided written instruction for home exercise program to facilitate proper performance and compliance. Correct performance of therapeutic exercises was facilitated with verbal and visual cuing. Educated patient on rationale for performing exercises in regards to ROM and function . Patient education as noted. Home Exercise Program Assigned: 1: as outlined above Billing * Evaluation Low Complexity: 1 Unit Therapeutic Exercise Treatment Minutes: 25 Total Treatment Time Minutes (timed/untimed): 45 Triny Vegas PT documented in this encounterSt. [facility] [place] [facility] History of Past illness Narrative* Problem Noted Date Resolved Date Lumbar radiculopathy 11/04/2022 12/28/2022 Chronic bilateral low back pain with bilateral s ciatica 11/04/2022 12/28/2022 Spinal stenosis of lumbar region 07/02/2022 12/28/2022 Vertigo 07/02/2022 12/28/2022 Gait instability 07/02/2022 12/28/2022 Balance disorder 07/02/2022 12/28/2022 Frequent falls 07/02/2022 12/28/2022 Blood in stool 03/02/2006 05/12/2006 Dyspepsia and other specifie d disorders of function of stomach 05/12/2006 Overview: Dyspepsia Hemorrhage of gastrointestinal tract, unspecifie d 05/12/2006 documented as of this encounter (statuses as of 01/04/2023) [facility] [place] [facility] History of Past illness Narrative* Problem Noted Date Resolved Date Lumbar radiculopathy 11/04/2022 12/28/2022 Chronic bilateral low back pain with bilateral s ciatica 11/04/2022 12/28/2022 Spinal stenosis of lumbar region 07/02/2022 12/28/2022 Vertigo 07/02/2022 12/28/2022 Gait instability 07/02/2022 12/28/2022 Balance disorder 07/02/2022 12/28/2022 Frequent falls 07/02/2022 12/28/2022 Blood in stool 03/02/2006 05/12/2006 Dyspepsia and other specifie d disorders of function of stomach 05/12/2006 Overview: Dyspepsia Hemorrhage of gastrointestinal tract, unspecifie d 05/12/2006 documented as of this encounter (statuses as of 01/27/2023) [facility] [facility] of Past illness Narrative* Problem Noted Date Resolved Date Lumbar radiculopathy 11/04/2022 12/28/2022 Chronic bilateral low back pain with bilateral s ciatica 11/04/2022 12/28/2022 Spinal stenosis of lumbar region 07/02/2022 12/28/2022 Vertigo 07/02/2022 12/28/2022 Gait instability 07/02/2022 12/28/2022 Balance disorder 07/02/2022 12/28/2022 Frequent falls 07/02/2022 12/28/2022 Blood in stool 03/02/2006 05/12/2006 Dyspepsia and other specifie d disorders of function of stomach 05/12/2006 Overview: Dyspepsia Hemorrhage of gastrointestinal tract, unspecifie d 05/12/2006 documented as of this encounter (statuses as of 02/01/2023) [facility] [place] [facility] History of Past illness Narrative* Problem Noted Date Resolved Date Lumbar radiculopathy 11/04/2022 12/28/2022 Chronic bilateral low back pain with bilateral s ciatica 11/04/2022 12/28/2022 Spinal stenosis of lumbar region 07/02/2022 12/28/2022 Vertigo 07/02/2022 12/28/2022 Gait instability 07/02/2022 12/28/2022 Balance disorder 07/02/2022 12/28/2022 Frequent falls 07/02/2022 12/28/2022 Blood in stool 03/02/2006 05/12/2006 Dyspepsia and other specifie d disorders of function of stomach 05/12/2006 Overview: Dyspepsia Hemorrhage of gastrointestinal tract, unspecifie d 05/12/2006 documented as of this encounter (statuses as of 02/05/2023) [facility] [place] [facility] History of Past illness Narrative* Problem Noted Date Resolved Date Lumbar radiculopathy 11/04/2022 12/28/2022 Chronic bilateral low back pain with bilateral s ciatica 11/04/2022 12/28/2022 Spinal stenosis of lumbar region 07/02/2022 12/28/2022 Vertigo 07/02/2022 12/28/2022 Gait instability 07/02/2022 12/28/2022 Balance disorder 07/02/2022 12/28/2022 Frequent falls 07/02/2022 12/28/2022 Blood in stool 03/02/2006 05/12/2006 Dyspepsia and other specifie d disorders of function of stomach 05/12/2006 Overview: Dyspepsia Hemorrhage of gastrointestinal tract, unspecifie d 05/12/2006 documented as of this encounter (statuses as of 03/29/2023) [facility] [facility] of Past illness Narrative* Problem Noted Date Diagnosed Date Resolved Date Lumbar radiculopathy 11/04/2022 023 Chronic bilateral low back p ain with bilateral sciatica 11/04/2022 12/28/2022 Spinal stenosis of lumbar region 07/02/2022 12/28/2022 Vertigo 07/02/2022 12/28/2022 Gait instability 07/02/2022 12/28/2022 Balance disorder 07/02/2022 12/28/2022 Frequent falls 07/02/2022 12/28/2022 Blood in stool 03/02/2006 05/12/2006 Dyspepsia and other specifie d disorders of function of stomach 05/12/2006 Overview: Dyspepsia Hemorrhage of gastrointestin al tract, unspecified 05/12/2006 documented as of this encounter (statuses as of 05/04/2023) [facility] [facility] of Past illness Narrative* Problem Noted Date Diagnosed Date Resolved Date Lumbar radiculopathy 11/04/2022 023 Chronic bilateral low back p ain with bilateral sciatica 11/04/2022 12/28/2022 Spinal stenosis of lumbar region 07/02/2022 12/28/2022 Vertigo 07/02/2022 12/28/2022 Gait instability 07/02/2022 12/28/2022 Balance disorder 07/02/2022 12/28/2022 Frequent falls 07/02/2022 12/28/2022 Blood in stool 03/02/2006 05/12/2006 Dyspepsia and other specifie d disorders of function of stomach 05/12/2006 Overview: Dyspepsia Hemorrhage of gastrointestin al tract, unspecified 05/12/2006 documented as of this encounter (statuses as of 05/06/2023) [facility] [facility] of Past illness Narrative* Problem Noted Date Diagnosed Date Resolved Date Lumbar radiculopathy 11/04/2022 023 Chronic bilateral low back p ain with bilateral sciatica 11/04/2022 12/28/2022 Spinal stenosis of lumbar region 07/02/2022 12/28/2022 Vertigo 07/02/2022 12/28/2022 Gait instability 07/02/2022 12/28/2022 Balance disorder 07/02/2022 12/28/2022 Frequent falls 07/02/2022 12/28/2022 Blood in stool 03/02/2006 05/12/2006 Dyspepsia and other specifie d disorders of function of stomach 05/12/2006 Overview: Dyspepsia Hemorrhage of gastrointestin al tract, unspecified 05/12/2006 documented as of this encounter (statuses as of 05/17/2023) [facility] [facility] of Past illness Narrative* Problem Noted Date Diagnosed Date Resolved Date Lumbar radiculopathy 11/04/2022 023 Chronic bilateral low back p ain with bilateral sciatica 11/04/2022 12/28/2022 Spinal stenosis of lumbar region 07/02/2022 12/28/2022 Vertigo 07/02/2022 12/28/2022 Gait instability 07/02/2022 12/28/2022 Balance disorder 07/02/2022 12/28/2022 Frequent falls 07/02/2022 12/28/2022 Blood in stool 03/02/2006 05/12/2006 Dyspepsia and other specifie d disorders of function of stomach 05/12/2006 Overview: Dyspepsia Hemorrhage of gastrointestin al tract, unspecified 05/12/2006 documented as of this encounter (statuses as of 05/29/2023) [facility] [facility] History of Past illness Narrative* Problem Noted Date Diagnosed Date Resolved Date Lumbar radiculopathy 11/04/2022 023 Chronic bilateral low back p ain with bilateral sciatica 11/04/2022 12/28/2022 Spinal stenosis of lumbar region 07/02/2022 12/28/2022 Vertigo 07/02/2022 12/28/2022 Gait instability 07/02/2022 12/28/2022 Balance disorder 07/02/2022 12/28/2022 Frequent falls 07/02/2022 12/28/2022 Blood in stool 03/02/2006 05/12/2006 Dyspepsia and other specifie d disorders of function of stomach 05/12/2006 Overview: Dyspepsia Hemorrhage of gastrointestin al tract, unspecified 05/12/2006 documented as of this encounter (statuses as of 06/02/2023) [facility] [facility] of Past illness Narrative* Problem Noted Date Diagnosed Date Resolved Date Lumbar radiculopathy 11/04/2022 023 Chronic bilateral low back p ain with bilateral sciatica 11/04/2022 12/28/2022 Spinal stenosis of lumbar region 07/02/2022 12/28/2022 Vertigo 07/02/2022 12/28/2022 Gait instability 07/02/2022 12/28/2022 Balance disorder 07/02/2022 12/28/2022 Frequent falls 07/02/2022 12/28/2022 Blood in stool 03/02/2006 05/12/2006 Dyspepsia and other specifie d disorders of function of stomach 05/12/2006 Overview: Dyspepsia Hemorrhage of gastrointestin al tract, unspecified 05/12/2006 documented as of this encounter (statuses as of 06/05/2023) [facility] [facility] of Past illness Narrative* Problem Noted Date Diagnosed Date Resolved Date Lumbar radiculopathy 11/04/2022 023 Chronic bilateral low back p ain with bilateral sciatica 11/04/2022 12/28/2022 Spinal stenosis of lumbar region 07/02/2022 12/28/2022 Vertigo 07/02/2022 12/28/2022 Gait instability 07/02/2022 12/28/2022 Balance disorder 07/02/2022 12/28/2022 Frequent falls 07/02/2022 12/28/2022 Blood in stool 03/02/2006 05/12/2006 Dyspepsia and other specifie d disorders of function of stomach 05/12/2006 Overview: Dyspepsia Hemorrhage of gastrointestin al tract, unspecified 05/12/2006 documented as of this encounter (statuses as of 07/27/2023) [facility] [facility] of Past illness Narrative* Problem Noted Date Diagnosed Date Resolved Date Lumbar radiculopathy 11/04/2022 023 Chronic bilateral low back p ain with bilateral sciatica 11/04/2022 12/28/2022 Spinal stenosis of lumbar region 07/02/2022 12/28/2022 Vertigo 07/02/2022 12/28/2022 Gait instability 07/02/2022 12/28/2022 Balance disorder 07/02/2022 12/28/2022 Frequent falls 07/02/2022 12/28/2022 Blood in stool 03/02/2006 05/12/2006 Dyspepsia and other specifie d disorders of function of stomach 05/12/2006 Overview: Dyspepsia Hemorrhage of gastrointestin al tract, unspecified 05/12/2006 documented as of this encounter (statuses as of 07/31/2023) [facility] [facility] of Past illness Narrative* Problem Noted Date Diagnosed Date Resolved Date Lumbar radiculopathy 11/04/2022 023 Chronic bilateral low back p ain with bilateral sciatica 11/04/2022 12/28/2022 Spinal stenosis of lumbar region 07/02/2022 12/28/2022 Vertigo 07/02/2022 12/28/2022 Gait instability 07/02/2022 12/28/2022 Balance disorder 07/02/2022 12/28/2022 Frequent falls 07/02/2022 12/28/2022 Blood in stool 03/02/2006 05/12/2006 Dyspepsia and other specifie d disorders of function of stomach 05/12/2006 Overview: Dyspepsia Hemorrhage of gastrointestin al tract, unspecified 05/12/2006 documented as of this encounter (statuses as of 08/17/2023) [facility] [facility] of Past illness Narrative* Problem Noted Date Diagnosed Date Resolved Date Lumbar radiculopathy 11/04/2022 023 Chronic bilateral low back p ain with bilateral sciatica 11/04/2022 12/28/2022 Spinal stenosis of lumbar region 07/02/2022 12/28/2022 Vertigo 07/02/2022 12/28/2022 Gait instability 07/02/2022 12/28/2022 Balance disorder 07/02/2022 12/28/2022 Frequent falls 07/02/2022 12/28/2022 Blood in stool 03/02/2006 05/12/2006 Dyspepsia and other specifie d disorders of function of stomach 05/12/2006 Overview: Dyspepsia Hemorrhage of gastrointestin al tract, unspecified 05/12/2006 documented as of this encounter (statuses as of 09/04/2023) [facility] [facility] of Past illness Narrative* Problem Noted Date Diagnosed Date Resolved Date Lumbar radiculopathy 11/04/2022 023 Chronic bilateral low back p ain with bilateral sciatica 11/04/2022 12/28/2022 Spinal stenosis of lumbar region 07/02/2022 12/28/2022 Vertigo 07/02/2022 12/28/2022 Gait instability 07/02/2022 12/28/2022 Balance disorder 07/02/2022 12/28/2022 Frequent falls 07/02/2022 12/28/2022 Blood in stool 03/02/2006 05/12/2006 Dyspepsia and other specifie d disorders of function of stomach 05/12/2006 Overview: Dyspepsia Hemorrhage of gastrointestin al tract, unspecified 05/12/2006 documented as of this encounter (statuses as of 09/06/2023) [facility] [facility] History of Past illness Narrative* Problem Noted Date Diagnosed Date Resolved Date Lumbar radiculopathy 11/04/2022 023 Chronic bilateral low back p ain with bilateral sciatica 11/04/2022 12/28/2022 Spinal stenosis of lumbar region 07/02/2022 12/28/2022 Vertigo 07/02/2022 12/28/2022 Gait instability 07/02/2022 12/28/2022 Balance disorder 07/02/2022 12/28/2022 Frequent falls 07/02/2022 12/28/2022 Blood in stool 03/02/2006 05/12/2006 Dyspepsia and other specifie d disorders of function of stomach 05/12/2006 Overview: Dyspepsia Hemorrhage of gastrointestin al tract, unspecified 05/12/2006 documented as of this encounter (statuses as of 09/07/2023) [facility] of Past illness Narrative* Problem Noted Date Diagnosed Date Resolved Date Lumbar radiculopathy 11/04/2022 023 Chronic bilateral low back p ain with bilateral sciatica 11/04/2022 12/28/2022 Spinal stenosis of lumbar region 07/02/2022 12/28/2022 Vertigo 07/02/2022 12/28/2022 Gait instability 07/02/2022 12/28/2022 Balance disorder 07/02/2022 12/28/2022 Frequent falls 07/02/2022 12/28/2022 Blood in stool 03/02/2006 05/12/2006 Dyspepsia and other specifie d disorders of function of stomach 05/12/2006 Overview: Dyspepsia Hemorrhage of gastrointestin al tract, unspecified 05/12/2006 documented as of this encounter (statuses as of 11/10/2023) [facility] of Past illness Narrative* Problem Noted Date Diagnosed Date Resolved Date Lumbar radiculopathy 11/04/2022 023 Chronic bilateral low back p ain with bilateral sciatica 11/04/2022 12/28/2022 Spinal stenosis of lumbar region 07/02/2022 12/28/2022 Vertigo 07/02/2022 12/28/2022 Gait instability 07/02/2022 12/28/2022 Balance disorder 07/02/2022 12/28/2022 Frequent falls 07/02/2022 12/28/2022 Blood in stool 03/02/2006 05/12/2006 Dyspepsia and other specifie d disorders of function of stomach 05/12/2006 Overview: Dyspepsia Hemorrhage of gastrointestin al tract, unspecified 05/12/2006 documented as of this encounter (statuses as of 12/14/2023) [facility] of Past illness Narrative* Problem Noted Date Diagnosed Date Resolved Date Lumbar radiculopathy 11/04/2022 023 Chronic bilateral low back p ain with bilateral sciatica 11/04/2022 12/28/2022 Spinal stenosis of lumbar region 07/02/2022 12/28/2022 Vertigo 07/02/2022 12/28/2022 Gait instability 07/02/2022 12/28/2022 Balance disorder 07/02/2022 12/28/2022 Frequent falls 07/02/2022 12/28/2022 Blood in stool 03/02/2006 05/12/2006 Dyspepsia and other specifie d disorders of function of stomach 05/12/2006 Overview: Dyspepsia Hemorrhage of gastrointestin al tract, unspecified 05/12/2006 documented as of this encounter (statuses as of 12/28/2023) [facility] History of Present illness Narrative* Triny Garcia RT(R) - 11/03/2022 2:20 PM EST Radiology Service Progress Note PATIENT NAME: Elizabeth Rodrigez DATE OF SERVICE: November 03, 2022 TIME: 2:41 PM PATIENT IDENTITY VERIFICATION COMPLETED USING TWO (2) IDENTIFIERS: Name and Date of confirmedby patient verbally. FALL SCREENING: Has the patient had 2 falls in the last year or 1 fall with injury or currently using an Ambulatory Assistive Device (Walker, Cane, Wheelchair, Crutches, etc.)? Yes, Patient High Riskfor Falls What interventions were put in place to prevent falls during this visit? Instructed Patient to Callfor Help if Needed, Offered Assistance with Transfers/Clothing, Instructed Patient to Remain Seated(Not on Exam Table) Until Exam, and Increased Observations by Caregivers PATIENT GENDER DATA: Female. status: : No status: NO. PATIENT RELEVANT IMPLANT DATA REVIEWED: Yes RADIOLOGY DEPARTMENT: MR; Exam(s) Completed: Spine: Cervical spine and Thoracic spine PERIPHERAL IV DATA: Not applicable SIGNED BY: RT Kiera(R) November 03, 2022 2:41 PM documented in this [facility] [facility] Miscellaneous Notes* Telephone Encounter - Ashwini Benitez RN - 10/06/2022 8:17 AM EST Pt notified of provider's orders below. Pt states she will complete urine testing post-med. Ashwini Benitez RN * Telephone Encounter - Yenifer Gonsalez MD - 10/05/2022 4:56 PM EST E coli was sensitive to all antibiotic. Looks like last time needed antibiotic, Macrobid was effective. Urine tests ordered so may do now or do post-med [facility]AC&S The following approved medication requests have been transmitted electronically. Requested Prescriptions Signed Prescriptions Disp Refills nitrofurantoin monohydrate and macrocrystal (MACROBID) 100 mg capsule 14 capsule 0 Sig: Take 1 capsule by mouth twice daily with meals for 7 days. Authorizing Provider: YENIFER GONSALEZ MD * Telephone Encounter - Ashwini Benitez RN - 10/05/2022 10:45 AM EST Images from the original note were not included. Pt contacted and provider's message reviewed (as copied below). Pt states she knows she has a UTI and has been trying to treat it at home with increased water intake. Pt states she has urinary frequency and burning during urination at times. Denies other symptoms. Please place urine lab order for pt as well as update her of which empirical treatment will be ordered while waiting on repeat urine testing. Thank you. COPIED: URINALYSIS, WITH MICROSCOPIC: Patient Communication Sugar a little low no metabolic panel--rest within normal limits Nonfasting lipids not too bad. LDL just over 100 at 103. TG under 200, goal ideally under 150. Urine culture showed mixed microbiota but predominantly E Coli. Not sure if contaminant or actual infection based on this. Note this lab is from August, so see whether having signs of UTI now. If so, would repeat urine studies and decide whether to treat empirically while waiting for results. documented in this encounter[facility] History of Present illness Narrative* Juan David Tilley MA - 10/05/2022 10:26 AM EST POPULATION HEALTH NAVIGATION OUTREACH Action/FYI LVM MYCHART MESSAGE ANNUAL MEDICARE WELLNESS COLORECTAL CANCER SCREENING due on 03/24/2016 ADVANCE DIRECTIVE DISCUSSION due on 09/27/2022 Pt identified by name and : NO Outreach Outcome/Action Unable to reach patient: Left message MyChart message sent Did you use a PCP flex slot to schedule this appointment? N/A Reason for Outreach Care Gap or Scheduling/Wellness visits Payer: Payor: [employer] MEDICARE / Plan: [employer] MEDICARE HMO / Product Type: HMO / Care Gap Reviewed:: Annual Wellness visit Colorectal Cancer Screening Reminder: Reminder note to check Health Maintenance for items below Health Maintenance items due: COLORECTAL CANCER SCREENING due on 03/24/2016 ADVANCE DIRECTIVE DISCUSSION due on 09/27/2022 Navigation Signature: Juan David Tilley MA October 05, 2022 10:26 AM documented in this encounterSt. [facility] [facility] History of Present illness Narrative* Pina Brothers, OD - 10/02/2022 1:36 PM EST 1. Dry eye syndrome of both eyes 2. Squamous blepharitis of upper and lower eyelids of both eyes 2-3 sec TBUT both eyes +blepharitis and MGD Recommended gel nightly, artificial tears 2-3 times daily, and warm compresses and lid scrubs daily 3. Type 2 diabetes mellitus without retinopathy (HCC) Risk of diabetic changes and vision loss can be minimized by tight control of blood sugar, blood pressure, and cholesterol levels. Educated patient to continue care with primary care doctor and/or computer networking instructor to maintain optimum levels as they are important to avoid ocular complications. Encouraged patient to call the office immediately with any changes to vision or visual concerns. Advised to not wait until the next scheduled exam. 4. Lesion of eyelid of both eyes 1 papilloma lower lid right eye, 1 dark (black?) lesion inferior lid both eyes -slightly larger left eye Recommend evaluation by oculoplastics 5. Pseudophakia of both eyes 6. PCO (posterior capsular opacification), bilateral Trace PCO-educated patient Follow-up with oculoplastics next available and me in 3 months for BAT and dry eye follow-up Pina Brothers, OD October 02, 2022 1:36 PM documented in this encounterSt. [facility] [facility] Instructions* Patient Instructions* Pina Brothers, OD - 10/02/2022 1:36 PM EST Use Systane Complete or Refresh Relieva 2-3 times daily Use Systane, Refresh or Blink gel nightly before bed in both eyes Use warm compresses twice daily Use Systane/Ocusoft lid wipes daily to clean eyelids/eyelashes documented in this encounterSt. [facility] [facility] History of Present illness Narrative* Mariangel JONELLE Arteaga - 09/04/2022 2:04 PM EST VIRTUAL VISIT: SPINE OUTPATIENT CONSULT This is a virtual visit using [facility] video visit. It required patient-provider interaction for themedical decision making as documented below. SERVICE DATE: 09/04/2022 PCP: Yenifer Gonsalez MD REFERRING PROVIDER: Baldemar Bush [phone] [facility] [id number] Consult requested for an opinion regarding the evaluation and treatment of imbalance, leg pain. My final impression and recommendations will be communicated back to the requesting physician by way ofthe shared medical record or letter via US mail. SUBJECTIVE Elizabeth Rodrigez is a 77 year old female presenting alone. CHIEF COMPLAINT: imbalance, leg pain HISTORY OF PRESENT ILLNESS PRECIPITATING EVENT: None DURATION OF SYMPTOMS: Greater Than 1 Year Seen virtually. Referred by neuromuscular regarding lumbar stenosis. She describes a chronic hx of radiating pain and cramping in the right > left lateral legs. Worse at night or when walking. She also feels heaviness and fatigue in the legs with walking. She feelslike her muscle get weak and like her legs want to give out. Hx of imbalance and falls for >1 year. Recently underwent inner ear therapy which did help with the falls but she still feels unsteady on her feet. She describes 10 year hx of numbness throughout her hands. All of the fingers. This is constant butthe right hand is worse than the left. She has trouble with dexterity and she drops things frequently. PMH includes: migraines, sarcoidosis, EILSHA with use of PAP, CTS, anxiety, OA, hld, DM, cardiac dysrhythmia and neuropathy. PREVIOUS CONSERVATIVE TREATMENTS: PT: current Rehab Gabapentin NSAIDS Tylenol PREVIOUS SPINAL SURGERY: None ACTIVE PROBLEM LIST Disorder of Bone and Cartilage Allergic Rhinitis, Cause Unspecified Generalized Anxiety Disorder Recurrent Major Depressive Disorder, in Partial Remission (Hcc) Pure Hypercholesterolemia Generalized Osteoarthrosis, Involving Hand Other Specified Cardiac Dysrhythmias(427.89) Panic Disorder Without Agoraphobia Migraine Without Aura, Without Mention of Intractable Migraine Without Mention of Status Migrainosus Ascending Aortic Aneurysm Elisha On Cpap Non Morbid Obesity Due to Excess Calories Primary Osteoarthritis of Both Knees Chronic Pain of Left Knee Psvt (Paroxysmal Supraventricular Tachycardia) ([facility]) Lichen Sclerosus Hearing Difficulty of Both Ears Controlled Type 2 Diabetes Mellitus Without Complication, Without Long-Term Current Use of Insulin (Hcc) Chronic Pain of Right Knee Obesity, Class I, Bmi 30-34.9 Compression Fracture of L1 Lumbar Vertebra (Hcc) Spinal Stenosis of Lumbar Region Vertigo Gait Instability Balance Disorder Frequent Falls PAST MEDICAL HISTORY Diagnosis Date Allergic rhinitis, cause unspecified Allergic rhinitis Carpal tunnel syndrome Depressive disorder, not elsewhere classified Disorder of bone and cartilage, unspecified Dysmetabolic syndrome X Dyspepsia and other specified disorders of function of stomach Dyspepsia Generalized anxiety disorder Anxiety, Generalized Generalized osteoarthrosis, involving hand Hemorrhage of gastrointestinal tract, unspecified Lichen sclerosus saw Dr. Jarvis Migraine without aura Obstructive sleep apnea (adult) (pediatric) uses C-PAP Other specified cardiac dysrhythmias(427.89) Panic disorder without agoraphobia Pure hypercholesterolemia PAST SURGICAL HISTORY Procedure Laterality Date BIOPSY BREAST OPEN INCISIONAL Bilateral Bx of breast, incisional COLONOSCOPY FLX DX W/COLLJ SPEC WHEN PFRMD 03/24/06 SPLENECTOMY TOTAL SEPARATE PROCEDURE 05/2018 Splenectomy TOTAL ABDOMINAL HYSTERECT W/WO RMVL TUBE OVARY Hysterectomy, FIGUEROA FAMILY HISTORY Problem Relation Age of Onset Alcohol/Drug Father Heart disease Father Colon Cancer Paternal Grandfather Colon Cancer Maternal Grandmother Arthritis Sister other (mvp) Sister other (palpitations) Mother Alcohol/Drug Brother Mental illness Brother Alcohol/Drug Sister Mental illness Sister Heart disease Sister No Known Problems Sister other (Hep C) Sister No Known Problems Sister Mental illness Brother Social History Tobacco Use Smoking status: Never Smokeless tobacco: Never Substance Use Topics Alcohol use: Yes Comment: She drinks approximately 1 sis per month Drug use: No ALLERGIES Allergen Reactions Epinephrine Other: See Comments Tachycardia, becomes incoherent Novocaine [Other] tachycardia Penicillins Rash Percocet [Oxycodone* Vomiting It makes her feel drunk Xylocaine [Lidocain* tachycardia MEDICATIONS: acyclovir (ZOVIRAX) 400 mg tablet^Take 1 tablet by mouth twice daily.^Disp: 180 tablet^Rfl: 3 gabapentin (NEURONTIN) 300 mg capsule^Take 1 capsule by mouth three times daily.^Disp: 270 capsule^Rfl: 3 phenazopyridine (PYRIDIUM) 200 mg tablet^Take 1 tablet by mouth three times daily as needed. As directed for UTIs^Disp: 6 tablet^Rfl: 0 PARoxetine (PAXIL) 20 mg tablet^Take 1 tablet by mouth twice daily.^Disp: 180 tablet^Rfl: 3 rosuvastatin (CRESTOR) 5 mg tablet^Take 1 tablet by mouth once daily. As directed^Disp: 90 tablet^Rfl: 3 clobetasol (TEMOVATE) 0.05 % cream^Apply 1 application to affected area once daily as needed.^Disp:60 g^Rfl: 5 diazePAM (VALIUM) 5 mg tablet^Take 1 tablet by mouth every 8 hours as needed for muscle spasm.^Disp: ^Rfl: CPAP^Initiate CPAP @ 12 cm of water with humidification. Mask (per patient preference) optional chin strap (if indicated) , filters, tubing, humidifier and lifetime supplies.^Disp: 1 Each^Rfl: 0 alendronate (FOSAMAX) 70 mg tablet^Take 1 tablet by mouth one time a week. Take with a full glass of water, on an empty stomach; do NOT lie down for 30minutes.^Disp: 12 tablet^Rfl: 3 verapamil (CALAN, ISOPTIN) 80 mg tablet^Take one pill daily; take another pill daily as needed for heart racing^Disp: 180 tablet^Rfl: 3 metFORMIN ER (GLUCOPHAGE XR) 500 mg 24 hr tablet^Take 1 tablet by mouth twice daily before meals. or as directed^Disp: 180 tablet^Rfl: 3 albuterol HFA (PROVENTIL HFA, VENTOLIN HFA) 90 mcg/actuation inhaler^INHALE 2 PUFFS BY MOUTH UP TO 4 TIMES DAILY NEEDED^Disp: ^Rfl: naproxen (NAPROSYN) 500 mg tablet^Take 1 tablet by mouth twice daily as needed (for pain/inflammation). Take with food.^Disp: 180 tablet^Rfl: 3 fluticasone (FLONASE) 50 mcg/actuation nasal spray^Use 2 Sprays in each nostril once daily. for sinus drainage and genstion^Disp: 1 Bottle^Rfl: 0 pumpkin seed extract-soy germ (AZO BLADDER CONTROL) 300 mg cap^Take 1-3 capsules by mouth once daily. (usually just needs 1 capsule daily)^Disp: ^Rfl: COMPOUNDED PRESCRIPTION^CPAP mask^Disp: 1 Each^Rfl: 0 COMPOUNDED PRESCRIPTION^CPAP mask--Mirage FX with formal mask fitting^Disp: 11 Each^Rfl: 0 REVIEW OF SYSTEMS: GENERAL: No weight loss or malaise MUSCULOSKELETAL: see HPI NEURO: No history of headaches, syncope, paralysis, seizures or tremors Patient Entered Questionnaires Spine Questions 08/28/2022 Pain Location: Leg Pain Duration: More than 5 years Pain over last 6 months: Every day or nearly every day in the past 6 months Symptoms from neck/cervical spine: No Employment Status: Retired Involved in law suit/legal claim: No Spine Red Flags 08/28/2022 Any type of cancer: No Unexplained fever: No Bowel or bladder disfunction: Yes Unintentional weight loss: No Osteoporosis: Yes PROMIS Score Percentiles Physical Health 08/28/2022 Physical Function Percentile 12 Sleep Percentile 27* Fatigue Percentile 8 Pain Interference Percentile 8 PROMIS SOCIAL ROLE SCORE 08/28/2022 Social Role Satisfaction Percentile 31 PROMIS Global Health Scale 05/21/2020 06/15/2022 08/28/2022 Physical Health Percentile 22* 15 15 Mental Health Percentile 19* 13 19* Percentiles provide an indication of how the patient's score ranks in relation to the general population. Higher percentile rankings indicate better function/quality of life. 50th percentile is the average of the general population and indicates half of respondents had a worse score. Depression Screening: PHQ-9 05/22/2019 06/15/2022 08/28/2022 Score 9 12 12 PHQ-9 Self-harm Question 05/22/2019 06/15/2022 08/28/2022 Thoughts that you would be better off , or of hurting yourself in some way 0 1 1 PHQ-9 Self-Harm (Item 9) response options: 0 Not at all 1 Several days 2 More than half the days 3 Nearly every day PHQ-9 Levels: 0-4 No to mild depression 5-9 Mild depression 10-14 Moderate depression 15-19 Moderately severe depression 20-27 Severe depression OBJECTIVE: PHYSICAL EXAM There were no vitals taken for this visit. Virtual visit She is able to sit, stand and walk without assistance NEURO TESTS: None DATA REVIEW [facility] records independently reviewed ASSESSMENT (M48.02) Spinal stenosis of cervical region (primary encounter diagnosis) (M51.9) Lumbar disc disease (M47.12) Cervical spondylosis with myelopathy (M47.814) Thoracic spondylosis without myelopathy (M48.062) Spinal stenosis, lumbar region with neurogenic claudication PLAN Virtual visit regarding imbalance and leg pain. Referred by neuromuscular regarding lumbar stenosis. She describes cramping and pain in the legs with laying and walking. Heaviness and fatigue as well. Lumbar MRI with congenitally narrow canal contributing to significant central stenosis of L3-4 andL4-5. This is likely contributing her some of her symptoms. She also describes her legs feeling like they are not working and subjective weakness. This may be related to the stenosis but I would recommend thoracic MRI as well to rule out thoracic myelopathy. She also describes frequent falls and feeling unsteady on her feet. Recent ENT treatment did help with falls but not unsteady gait. She also has constant numbness throughout both hands and she drops things frequently. Cervical MRI needed to further evaluate and rule out cervical myelopathy. Myelopathy and red flags discussed in great detail. 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 Follow up after imaging The majority of the visit was spent counseling and/or coordinating care for the patient. Total faceto face time was 40 minutes. SIGNATURE: Mariangel Arteaga PA-C PATIENT NAME: Elizabeth Rodrigez DATE: September 04, 2022 TIME: 2:04 PM PAGER: documented in this encounterSt. [facility] History of Present illness Narrative* Yenifer Gonsalez MD - 08/28/2022 2:54 PM EST This note was created using NoteWriter. Subjective Elizabeth Rodrigez is a 77 year old female. Patient presents with: Follow Up: Reports arthritis pain t/o but reports as her normal everyday pain. Reporting foul urinesmell. SUBJECTIVE: Elizabeth Rodrigez is a 77 year old year old lady here today for follow up appointment for review of medical conditions. Needs prescription for PT for lumbar spine. Reviewed MRI lumbar spine. Hurts over tailbone area. Can go into buttocks. Also pain in knees/legs. Was having dizziness and falling down. Vestibular treatment through PT had helped. Tough treatmentsbut effective. Ongoing ardon in hands/fingers from DJD CTS in both wrists, with right one worse. Wears splints for both wrists every night. Hurts in right thumb wrist area in MCP joint. Can have shooting pain. Recurrent UTI symptoms. No recent Urine studies. Pushes fluids. Had been to urologist once but did not follow through with testing since copays could not afford. Drinks about 1.5 liters water daily. Issues with urinary incontinence. Back on statin every night. Will get eye check up when able to schedule. Was told by neuro to see out eye doctors. Noted that there was an June appointment but not rescheduled. Insurance changing in September. PAST MEDICAL HISTORY Diagnosis Date Allergic rhinitis, cause unspecified Allergic rhinitis Carpal tunnel syndrome Depressive disorder, not elsewhere classified Disorder of bone and cartilage, unspecified Dysmetabolic syndrome X Dyspepsia and other specified disorders of function of stomach Dyspepsia Generalized anxiety disorder Anxiety, Generalized Generalized osteoarthrosis, involving hand Hemorrhage of gastrointestinal tract, unspecified Lichen sclerosus saw Dr. Jarvis Migraine without aura Obstructive sleep apnea (adult) (pediatric) uses C-PAP Other specified cardiac dysrhythmias(427.89) Panic disorder without agoraphobia Pure hypercholesterolemia Current Outpatient Medications Medication Sig PARoxetine (PAXIL) 20 mg tablet Take 1 tablet by mouth twice daily. rosuvastatin (CRESTOR) 5 mg tablet Take 1 tablet by mouth once daily. As directed clobetasol (TEMOVATE) 0.05 % cream Apply 1 application to affected area once daily as needed. diazePAM (VALIUM) 5 mg tablet Take 1 tablet by mouth every 8 hours as needed for muscle spasm. verapamil (CALAN, ISOPTIN) 80 mg tablet Take one pill daily; take another pill daily as needed for heart racing metFORMIN ER (GLUCOPHAGE XR) 500 mg 24 hr tablet Take 1 tablet by mouth twice daily before meals. or as directed phenazopyridine (PYRIDIUM) 200 mg tablet Take 1 tablet by mouth three times daily as needed. albuterol HFA (PROVENTIL HFA, VENTOLIN HFA) 90 mcg/actuation inhaler INHALE 2 PUFFS BY MOUTH UP TO 4 TIMES DAILY NEEDED naproxen (NAPROSYN) 500 mg tablet Take 1 tablet by mouth twice daily as needed (for pain/inflammation). Take with food. acyclovir (ZOVIRAX) 400 mg tablet Take 1 tablet by mouth twice daily. fluticasone (FLONASE) 50 mcg/actuation nasal spray Use 2 Sprays in each nostril once daily. for sinus drainage and genstion pumpkin seed extract-soy germ (AZO BLADDER CONTROL) 300 mg cap Take 1-3 capsules by mouth once daily. (usually just needs 1 capsule daily) CPAP Initiate CPAP @ 12 cm of water with humidification. Mask (per patient preference) optional chin strap (if indicated) , filters, tubing, humidifier and lifetime supplies. alendronate (FOSAMAX) 70 mg tablet Take 1 tablet by mouth one time a week. Take with a full glass of water, on an empty stomach; do NOT lie down for 30minutes. gabapentin (NEURONTIN) 300 mg capsule Take 1 capsule by mouth three times daily. COMPOUNDED PRESCRIPTION CPAP mask COMPOUNDED PRESCRIPTION CPAP mask--Mirage FX with formal mask fitting Current Facility-Administered Medications Medication Dose Route Frequency perflutren lipid microspheres 1.3 mL in NaCl (PF) 0.9% 10 mL injection (DEFINITY) INTRAVENOUS DIRECTED PRN sodium chloride 0.9 % (flush) 10 mL (BD POSIFLUSH) 10 mL INTRAVENOUS DIRECTED PRN Review of Systems Objective BP 112/76 Pulse 83 Resp 16 Wt 83.1 kg (183 lb 3.2 oz) SpO2 96% BMI 34.39 kg/m Last 5 Encounter Wt Readings: Date: Wt: 08/28/2022 83.1 kg (183 lb 3.2 oz) 06/24/2022 79.8 kg (176 lb) 05/07/2022 79.6 kg (175 lb 6.4 oz) 03/11/2022 80.7 kg (178 lb) 12/22/2021 80.7 kg (178 lb) No waist measurement recorded Estimated body mass index is 34.39 kg/m as calculated from the following: Height as of 02/06/19: 155.4 cm (5' 1.2). Weight as of this encounter: 83.1 kg (183 lb 3.2 oz). Last 5 Encounter BP Readings: Date: BP: 08/28/2022 112/76 07/23/2022 134/80 07/02/2022 110/74 06/24/2022 110/64 05/07/2022 132/86 Physical Exam Constitutional: Appearance: Normal appearance. HENT: Head: Normocephalic. Eyes: Conjunctiva/sclera: Conjunctivae normal. Cardiovascular: Rate and Rhythm: Normal rate and regular rhythm. Heart sounds: Normal heart sounds. Pulmonary: Effort: Pulmonary effort is normal. Breath sounds: Normal breath sounds. Skin: General: Skin is warm and dry. Neurological: General: No focal deficit present. Mental Status: She is alert and oriented to person, place, and time. Psychiatric: Mood and Affect: Mood normal. Behavior: Behavior normal. Thought Content: Thought content normal. Judgment: Judgment normal. Assessment and Plan Encounter Diagnosis ICD-10-CM 1. Controlled type 2 diabetes mellitus without complication, without long-term current use of insulin (HCC) E11.9 BASIC METABOLIC PNL CONSULT TO OPHTHALMOLOGY 2. Herpes simplex vulvovaginitis A60.04 acyclovir (ZOVIRAX) 400 mg tablet 3. Mixed hyperlipidemia E78.2 LIPID PANEL, NONFASTING 4. Eyelid pain of both eyes H02.89 CONSULT TO OPHTHALMOLOGY Systane helps; gets pain upper lid nad hall. Using Systane helps some 5. Dry eye syndrome of both eyes H04.123 CONSULT TO OPHTHALMOLOGY 6. Compression fracture of L1 vertebra with routine healing, subsequent encounter S32.010D CONSULT TO PHYSICAL THERAPY 7. Lumbar radiculopathy M54.16 CONSULT TO PHYSICAL THERAPY 8. Chronic bilateral low back pain with bilateral sciatica M54.42 CONSULT TO PHYSICAL THERAPY M54.41 G89.29 9. Abnormal urine odor R82.90 URINALYSIS, WITH MICROSCOPIC URINE CULTURE 10. Urinary frequency R35.0 URINALYSIS, WITH MICROSCOPIC URINE CULTURE 11. Urinary urgency R39.15 URINALYSIS, WITH MICROSCOPIC URINE CULTURE Above issues addressed with patient. Patient involved in shared decision making for management of medical issues. History and medications reviewed. Epic updated as needed Refills and/or prescriptions taken care of and meds adjusted as indicated after reviewed history, exam and labs. Health Maintenance reviewed. Updated record and/or ordered tests as recorded. Encouraged on efforts at healthy diet and regular exercise and adequate sleep. Yenifer Gonsalez MD documented in this encounterSt. [facility] History of Present illness Narrative* Ryanne Kaba, PT - 07/23/2022 1:04 PM EDT Episode Visit Count: 3 Therapist That Will Accept/Oversee The Plan Of Care: Ryannegilberto Kaba Start of Care Date: 07/02/22 Onset Date: 07/02/21 Plan of Care Certification Date: 07/02/22 Next Certification Due Date: 08/13/22 REHABILITATION AND SPORTS THERAPY PHYSICAL THERAPY TREATMENT NOTE ASSESSMENT: Elizabeth Rodrigez tolerated the session with increased symptoms with L tory-hallpike , R tory-hallpike with clockwise rotational up beating nystagmus nand symptoms lasting less than 30 sec duration . Treated with improved symptoms after 2 rounds of CRM for L PC canalithiasis. R ear down roll test resulted in increased symptoms <30 sec as well as R beating nystagmus. She had a negative R head roll re-test following 360 log roll CRM for R HC canalithiasis, as well as negative re-test of tory-hallpike each side at end of visit. Pt. Reported dizziness, sweating, and nauseas upon standing and walking from treatment room at end of visit. Vitals were taken but within safe parameters. Nausea and dizziness resolved after seated rest for 10-15 minutes. She demonstrated improvements in bendingforward and presented to clinic today walking without LOB without bringing her cane. The patient will continue to benefit from ongoing skilled physical therapy to progress toward set goals. PLAN FOR NEXT VISIT: Assess symptoms since CRM this visit. Re-test L PC and R HC. Assess symptoms with laying back and bending forward and observe with VNG for nystagmus. Consider habituation exercises and complete MSQ if pt. continues to have symptoms with BPPV testing positional changes but without nystagmus SUBJECTIVE: Patient Reason for Visit: Pt. reports much improvement since last visit. She continues to have some dizziness with laying down, but not every time like it was. Dizziness continues to last less than a minute. Presents without straight cane, she has forgotten it. She is able to bend forward without dizziness. She almost did't come in today due to improved symptoms, but wanted to be sure due to continued dizziness upon laying down. No dizziness currently. Denies falls since last visit. Vestibular Dizziness: No Rating of current symptoms: 0/10 Frequency: Intermittent Duration: seconds Symptoms worsened by: lying down Symptoms improved by: being still;closing eyes Imbalance: No Pain: Pain Pain Location: Neck - Right Post Treatment Pain Post Treatment Pain Level: Better Post Treatment Symptoms: symptoms improved following 2x L PC CRM and 1x R HC CRM. Following R ear down re-test, Upon sitting up sudden reports of dizziness and nausea upon sitting up that required a substantial amount of time to reduce. vitals taken and within safe parameters. pt. feeling light headed and sweating. She is diabetic, currently drinking a non-diet pop. After 10-15 min of seated restafter conclusion of visit, pt. began to report minimal to no dizziness/nausea upon leaving and she stated she was confident that she was feeling much better. OBJECTIVE MEASURES WITH LEVEL OF FUNCTION: Oculomotor Testing Fixation Removed Spontaneous Nystagmus: No nystagmus Gaze Evoked Nystagmus: Not present Head Shake: Negative (without symptoms) Positional Testing Right [place]-Hallpike: Symptomatic;Less than 60 seconds;Right Torsional / Clockwise;Upbeat;With delay Left [place]-Hallpike: Upbeat;Symptomatic;Right Torsional / Clockwise;Less than 60 seconds;With delay Right Ear Down: Symptomatic;Right beat;With delay;Less than 60 seconds Left Ear Down: No nystagmus;Asymptomatic Positional Test Comments: most symptomatic with L tory hallpike TREATMENT: Self-Long Term Management: 1: *advised pt. to maintain upright head and neck posture for at least 2 hours following CRM treatment today, hydrating well before next visit to facilitate effectiveness of treatment, and to sleep supine avoiding turning to the L if unable to sleep on R side. 2: *advised use of straight cane to avoid falls 3: *vitals taken due to symptoms at conclusion of visit and new onset of imbalance and sweating 4: *discussed the canals treated today and the direction of eye mobements determining which canals are effected and there fore which manuevers to return otoconia to the utricle Skilled Intervention: Skilled judgment in the selection of proper modification for activity of daily living/home management based on clinical presentation, deficits, and needs. Physical assistance was provided during education for modifications and patient safety. Educated the patient regarding recommendations and provided written instruction to facilitate compliance. Reviewed patient specific diagnosis in relation to activities of daily living/home management. Activity progression based on professional judgement. Canalith Repositionin: CRM for L PC canalithiasis 2x, re-test less symptomatic but upbeat clockwise torsional nystagmusstill present <30 sec (nausea during first manuever, less with second. no emesis. max cues to keep the eyes open for NVG) 2: CRM for HC canalisthiasis 360 roll, 1x. Negative re-test R HC canal without symptoms or nystagmus observed (max assistance to avoid extending the neck throughout this treatment, max cues to keep the eyes open for NVG) Skilled Intervention: Professional judgment was used to determine specific treatment interventions based on assessment of symptoms. Physically assisted patient through each step of repositioning. Verbal and tactile cues provided to patient to assist in moving between each position of maneuver in correct sequence. Instructed patient in post repositioning procedures including maintaining upright head positioning/movements for at least 2 hours. Billing Self-Care/Home Management Treatment Minutes: 15 * Canalith Repositionin unit Total Treatment Time Minutes (timed/untimed): 45 Ryanne Kaba PT documented in [facility] [facility] History of Present illness Narrative* RT Kiera(Suman) - 07/16/2022 1:40 PM EDT Radiology Service Progress Note PATIENT NAME: Elizabeth Rodrigez DATE OF SERVICE: July 16, 2022 TIME: 2:07 PM PATIENT IDENTITY VERIFICATION COMPLETED USING TWO (2) IDENTIFIERS: Name and Date of confirmedby patient verbally. FALL SCREENING: Has the patient had 2 falls in the last year or 1 fall with injury or currently using an Ambulatory Assistive Device (Walker, Cane, Wheelchair, Crutches, etc.)? No PATIENT GENDER DATA: Female. status: : No status: NO. PATIENT RELEVANT IMPLANT DATA REVIEWED: Yes RADIOLOGY DEPARTMENT: MR; Exam(s) Completed: Spine: Lumbar spine PERIPHERAL IV DATA: Not applicable SIGNED BY: RT Kiera(Suman) July 16, 2022 2:07 PM documented in this encounterSt. [facility] [place] [facility] History of Present illness Narrative* Ryannegilberto Kaba, PT - 07/15/2022 11:14 AM EDT Episode Visit Count: 2 Therapist That Will Accept/Oversee The Plan Of Care: Triny Vegas PT Start of Care Date: 07/02/22 Onset Date: 07/02/21 Plan of Care Certification Date: 07/02/22 Next Certification Due Date: 08/13/22 Patient Identified by Name and Date of : Yes REHABILITATION AND SPORTS THERAPY PHYSICAL THERAPY TREATMENT NOTE ASSESSMENT: Elizabeth Rodrigez tolerated the session with dizziness and nausea with up beat L torsional nystagmus following tory hallpike lasting less than 30 seconds. Reduced symptom intensity/duration withre-test. Negative roll testing R and L horrizontal canals. . The patient will continue to benefit from ongoing skilled physical therapy to progress toward set goals. Current Frequency: 1x/week Duration: 4 weeks Total Number of Visits Planned: 4 Planned Treatment Interventions: Therapeutic exercise (30408);Neuromuscular re- education (30686);Self-penitentiary management (81627);Patient/Family/Caregiver Education;Canalith Repositioning Maneuvers (54626) PLAN FOR NEXT VISIT: Schedule with vestibular PT next visit. Re-test using VNG L PC and HC. Treat with CRMs as appropriate. SUBJECTIVE: Patient Reason for Visit: Pt. here to see vestibular PT evaluation of dizziness symptoms and screening for peripheral vestibular system invovlement using VNG. Pt. reports dizzines that feels like being drunk. Symptoms are daily, lasting less than half a minute and come on with rising and lying. Pt. reports having severe inner ear infections as a child. Pt. most recent fall, she was carrying packages in her arms. Vestibular Symptoms present for: months (within the past year.) Dizziness: Yes Description: dizziness;light headed;woozy;spinning (self);vertigo Frequency: Daily Duration: seconds Symptoms improved by: being still Imbalance: Yes Fall Assessment: History of falls When was your most recent fall?: Wednesday 2 weeks ago, 3 falls that day Did the fall occur inside or outside?: outside How did the fall occur?: amb while carrying items with both hands Injuries resulting from fall? : yes, soreness Dizziness during fall?: unsure Nausea: yes, has not vomited Motion Sickness: Current (unable to ride in the back of vehicle) Description: aching (with turning L) Rating of current symptoms: 3/10 Location: right neck Frequency: Intermittent Symptoms worsened by: (turning R and L) Pain: Pain Pain Level: (see rating below) Pain Location: Neck - Right Post Treatment Pain Post Treatment Pain Level: Worse Post Treatment Symptoms: nausea resolved with seated rest. Denies dizziness after seated rest. Increased neck pain right side following CRM for L PC OBJECTIVE MEASURES WITH LEVEL OF FUNCTION: Posture / Alignment Posture: Forward head;Increased thoracic kyphosis Spine Observations R Cervical Spine Palpation Tenderness: Upper trapezius Oculomotor Testing Fixation Present Ocular ROM: WNL Spontaneous Nystagmus: No nystagmus Gaze Evoked Nystagmus: Not Present Saccadic eye movements: Horizontal, vertical and oblique all WNL. Head Thrusts: Left positive VOR to slow head movements: Negative Cross Cover: Negative Oculomotor Testing Fixation Removed Spontaneous Nystagmus: No nystagmus Gaze Evoked Nystagmus: Not present Head Shake: Negative (dizziness) Tragal Pressure: negative Positional Testing Right Tory-Hallpike: Right beat;Asymptomatic Left [place]-Hallpike: Symptomatic;With delay;Less than 60 seconds;Left Torsional / Counterclockwise;Upbeat Right Ear Down: Asymptomatic;No nystagmus Left Ear Down: No nystagmus;Symptomatic;Less than 60 seconds TREATMENT: Self-Long Term Management: 1: *discussed BPPV inner ear anatomy and physiology for head and eye movements 2: *provided visual aid using anatomy images 3: *advised pt. to maintain upright head and neck posture for at least 2 hours following CRM treatment today, hydrating well before next visit to facilitate effectiveness of treatment, and to sleep on the R side tonight to prevent reocurrance. 4: *advised use of straight cane to avoid falls Skilled Intervention: Skilled judgment in the selection of proper modification for activity of daily living/home management based on clinical presentation, deficits, and needs. Physical assistance was provided during education for modifications and patient safety. Reviewed patient specific diagnosis in relation to activities of daily living/home management. Activity progression based on professional judgement. Canalith Repositionin: CRM for L PC canalith 2x, less symptomatic but upbeat L torsional nystagmus present <30 sec 2nd trial. 2: nausea and near emesis during 1st and 2nd trial. Less than 30 seconds and nystagmus duration each trial 3: dizziness and nausea reduced with seated rest 3 min. PT guarded pt. in seated position followingeach manuever. Drop attack in seated position without fall requiring max A at trunk following 1st trial. Skilled Intervention: Professional judgment was used to determine specific treatment interventions based on assessment of symptoms. Physically assisted patient through each step of repositioning. Verbal and tactile cues provided to patient to assist in moving between each position of maneuver in correct sequence. Patient education including handouts provided regarding self repostitioning techniques to be performed at home. Instructed patient in post repositioning procedures including keeping head upright for 2 hours and sleeping on the right side (opposite of involved). Billing * Re-Evaluation Complexity: 1 Unit Self-Care/Home Management Treatment Minutes: 20 * Canalith Repositionin unit Total Treatment Time Minutes (timed/untimed): 47 Ryanne Kaba PT documented in this encounterSt[facility] [place] [facility] History of Past illness Narrative* Problem Noted Date Diagnosed Date Resolved Date Spinal stenosis of lumbar region 07/02/2022 12/28/2022 Vertigo 07/02/2022 12/28/2022 Gait instability 07/02/2022 12/28/2022 Balance disorder 07/02/2022 12/28/2022 Frequent falls 07/02/2022 12/28/2022 Blood in stool 03/02/2006 05/12/2006 Dyspepsia and other specifie d disorders of function of stomach 05/12/2006 Overview: Dyspepsia Hemorrhage of gastrointestin al tract, unspecified 05/12/2006 documented as of this encounter (statuses as of 07/31/2023) [facility] [facility] History of Present illness Narrative* Samantha Lo Pss - 06/26/2022 8:50 AM EDT POPULATION HEALTH NAVIGATION OUTREACH Action/FYI Patient due for Colonoscopy, ARDEN Scheduled ARDEN, patient declined colonoscopy scheduling. Pt identified by name and : YES, via phone Outreach Outcome/Action Spoke to patient or caregiver: Patient scheduled Patient declined Did you use a PCP flex slot to schedule this appointment? No Reason for Outreach Care Gap or Scheduling/Wellness visits Payer: Payor: [employer] / Plan: [employer] HMO / Product Type: HMO / Care Gap Reviewed:: Colorectal Cancer Screening Diabetic Eye Exam Reminder: Reminder note to check Health Maintenance for items below Health Maintenance items due: COLORECTAL CANCER SCREENING due on 03/24/2016 DILATED RETINAL EXAM due on 10/15/2021 Message Sent to Practice: No Navigation Signature: Samantha Proctor June 26, 2022 8:52 AM documented in this encounterSt. [facility] [place] [facility] History of Present illness Narrative* Annette Older, COMPUTER SUPPORT SPECIALIST.BEER COOLER - 06/24/2022 1:16 PM EDT CC: Patient presents with: F/U 6 months HPI Elizabeth Rodrigez is a 77 year old female who presents today for above. She was referred to neurology for gait instability, balance disorder, leg weakness, frequent falls.MRI of the brain okay other than moderate microvascular changes. X-ray of the lumbar spine indicating vertebral compression fracture of L1 of unknown age. Patient has been getting PT and has noticed improvement in gait and stability, no longer needs walker to ambulate and has not fallen in a couplemonths. Neurologist referred her to [facility] for vestibular therapy and continued gait training. MRI lumbar spine ordered, patient has not scheduled yet. Denies significant back pain. She is diabetic. Does not check blood sugars. Last HgbA1c 6.7. Taking Metformin twice a day with meals, denies side effects. She has neuropathy, taking Gabapentin as prescribed which is effective at controlling symptoms. BP well controlled, does not check at home. She is on Verapamil for paroxysmalAfib, taking as prescribed. She has anxiety and depression, controlled with Paxil. Has taken Valiuma couple times and has really helped with anxiety/panic attacks. This was prescribed at the hospital. REVIEW OF SYSTEMS See HPI PAST MEDICAL HISTORY Diagnosis Date Allergic rhinitis, cause unspecified Allergic rhinitis Carpal tunnel syndrome Depressive disorder, not elsewhere classified Disorder of bone and cartilage, unspecified Dysmetabolic syndrome X Dyspepsia and other specified disorders of function of stomach Dyspepsia Generalized anxiety disorder Anxiety, Generalized Generalized osteoarthrosis, involving hand Hemorrhage of gastrointestinal tract, unspecified Lichen sclerosus saw Dr. Jarvis Migraine without aura Obstructive sleep apnea (adult) (pediatric) uses C-PAP Other specified cardiac dysrhythmias(427.89) Panic disorder without agoraphobia Pure hypercholesterolemia PAST SURGICAL HISTORY Procedure Laterality Date BIOPSY BREAST OPEN INCISIONAL Bilateral Bx of breast, incisional COLONOSCOPY FLX DX W/COLLJ SPEC WHEN PFRMD 03/24/06 SPLENECTOMY TOTAL SEPARATE PROCEDURE 05/2018 Splenectomy TOTAL ABDOMINAL HYSTERECT W/WO RMVL TUBE OVARY Hysterectomy, FIGUEROA ALLERGIES Epinephrine, Novocaine [Other], Penicillins, Percocet [Oxycodone- Acetaminophen], and Xylocaine [Lidocaine Hcl (Local Anesth.)] MEDICATIONS PARoxetine (PAXIL) 20 mg tablet^Take 1 tablet by mouth twice daily.^Disp: 180 tablet^Rfl: 3 rosuvastatin (CRESTOR) 5 mg tablet^Take 1 tablet by mouth once daily. As directed^Disp: 90 tablet^Rfl: 3 clobetasol (TEMOVATE) 0.05 % cream^Apply 1 application to affected area once daily as needed.^Disp:60 g^Rfl: 5 diazePAM (VALIUM) 5 mg tablet^Take 1 tablet by mouth every 8 hours as needed for muscle spasm.^Disp: ^Rfl: CPAP^Initiate CPAP @ 12 cm of water with humidification. Mask (per patient preference) optional chin strap (if indicated) , filters, tubing, humidifier and lifetime supplies.^Disp: 1 Each^Rfl: 0 alendronate (FOSAMAX) 70 mg tablet^Take 1 tablet by mouth one time a week. Take with a full glass of water, on an empty stomach; do NOT lie down for 30minutes.^Disp: 12 tablet^Rfl: 3 verapamil (CALAN, ISOPTIN) 80 mg tablet^Take one pill daily; take another pill daily as needed for heart racing^Disp: 180 tablet^Rfl: 3 metFORMIN ER (GLUCOPHAGE XR) 500 mg 24 hr tablet^Take 1 tablet by mouth twice daily before meals. or as directed^Disp: 180 tablet^Rfl: 3 phenazopyridine (PYRIDIUM) 200 mg tablet^Take 1 tablet by mouth three times daily as needed.^Disp: 6 tablet^Rfl: 0 (Patient not taking: Reported on 05/07/2022) albuterol HFA (PROVENTIL HFA, VENTOLIN HFA) 90 mcg/actuation inhaler^INHALE 2 PUFFS BY MOUTH UP TO 4 TIMES DAILY NEEDED^Disp: ^Rfl: naproxen (NAPROSYN) 500 mg tablet^Take 1 tablet by mouth twice daily as needed (for pain/inflammation). Take with food.^Disp: 180 tablet^Rfl: 3 acyclovir (ZOVIRAX) 400 mg tablet^Take 1 tablet by mouth twice daily.^Disp: 180 tablet^Rfl: 3 gabapentin (NEURONTIN) 300 mg capsule^Take 1 capsule by mouth three times daily.^Disp: 270 capsule^Rfl: 3 fluticasone (FLONASE) 50 mcg/actuation nasal spray^Use 2 Sprays in each nostril once daily. for sinus drainage and genstion^Disp: 1 Bottle^Rfl: 0 pumpkin seed extract-soy germ (AZO BLADDER CONTROL) 300 mg cap^Take 1-3 capsules by mouth once daily. (usually just needs 1 capsule daily)^Disp: ^Rfl: COMPOUNDED PRESCRIPTION^CPAP mask^Disp: 1 Each^Rfl: 0 COMPOUNDED PRESCRIPTION^CPAP mask--Mirage FX with formal mask fitting^Disp: 11 Each^Rfl: 0 FAMILY HISTORY Problem Relation Age of Onset Alcohol/Drug Father Heart disease Father Colon Cancer Paternal Grandfather Colon Cancer Maternal Grandmother Arthritis Sister other (mvp) Sister other (palpitations) Mother Alcohol/Drug Brother Mental illness Brother Alcohol/Drug Sister Mental illness Sister Heart disease Sister No Known Problems Sister other (Hep C) Sister No Known Problems Sister Mental illness Brother Social History Tobacco Use Smoking status: Never Smokeless tobacco: Never Substance Use Topics Alcohol use: Yes Comment: She drinks approximately 1 sis per month Drug use: No PHYSICAL EXAM BP 134/84 Pulse 86 Resp 16 Wt 79.8 kg (176 lb) BMI 33.04 kg/m General Appearance: well appearing, in no acute distress, alert Lungs: Lungs clear to auscultation. No wheezing, rhonchi, rales. Heart: RRR without murmur, gallop, or rubs. No ectopy Health maintenance reviewed with patient: DTAP,TDAP,TD(1 - Tdap) Never done SHINGRIX VACCINE(1 of 2) Never done COLORECTAL CANCER SCREENING due on 03/24/2016 DILATED RETINAL EXAM due on 10/15/2021 COVID-19 VACCINE(4 - Booster for Moderna series) due on 11/05/2021 HBA1C due on 06/24/2022 INFLUENZA(1) due on 05/28/2022 URINE ALBUMIN:CREATININE RATIO due on 12/22/2022 LDL CHOLESTEROL due on 12/22/2022 MAMMOGRAM due on 01/20/2023 DIABETIC FOOT EXAM due on 03/11/2023 ANNUAL PCP TEAM CHRONIC DISEASE VISIT due on 03/11/2023 SPIROMETRY Completed ADVANCE DIRECTIVE DISCUSSION Completed PNEUMOCOCCAL: 65+ Completed BONE DENSITY Discontinued HEPATITIS C SCREENING Discontinued DATA REVIEWED: Most recent labs ASSESSMENT/PLAN: 1. Controlled type 2 diabetes mellitus without complication, without long-term current use of insulin (HCC) - ICD9: 250.00, ICD10: E11.9 (primary diagnosis) Controlled. - Continue current medications - HGB A1C 2. Gait instability - ICD9: 781.2, ICD10: R26.81 Improving. Continue with PT 3. Compression fracture of L1 vertebra with routine healing, subsequent encounter - ICD9: V54.17, ICD10: S32.010D Schedule MRI lumbar spine 4. Obesity, Class I, BMI 30-34.9 - ICD9: 278.00, ICD10: E66.9 Weight decreasing 5. ELISHA on CPAP - ICD9: 327.23, V46.8, ICD10: G47.33, Z99.89 Compliant with CPAP 6. Generalized anxiety disorder - ICD9: 300.02, ICD10: F41.1 Stable 7. PSVT (paroxysmal supraventricular tachycardia) (HCC) - ICD9: 427.0, ICD10: I47.1 Stable 8. Encounter for immunization - ICD9: V03.89, ICD10: Z23 - INFLUENZA SEASONAL QUADRIVALENT HIGH DOSE AGE 65+ Prescription instructions reviewed with patient as applicable. Potential red flag symptoms discussed with the patient. Reviewed appropriate action plan to take if red flag symptoms occur. Patient agreeable to treatment plan. Annette Pinto APRN.CNP documented in this encounterSt. [facility] [facility] History of Present illness Narrative* Michelle Pacheco APRN.CNP - 06/17/2022 6:45 PM EDT Images from the original note were not included. [facility] [place] Follow-up Visit Follow-up note June 18, 2022 HPI: Ms. Rodrigez presents today for a follow-up visit. Per her previous visit on 05/07/22: G45.9 Transient cerebral ischemia, unspecified type (primary encounter diagnosis) R26.81 Gait instability R26.89 Balance disorder R25.1 Tremor R29.6 Frequent falls Comment: Pt presenting today for balance concerns and frequent falls. Initial balance concerns began a few years ago, however, she notes worsening over the past year. Notable history includes migraines, sarcoidosis, ELISHA with use of PAP, CTS, anxiety, OA, hld, DM, cardiac dysrhythmia and neuropathy.She does note hx of arthritis and reports joint pain throughout. Additionally she reports tremor and mild memory concerns. On exam, pinprick sensation decreased in lower extremities. No focal weakness noted. Tandem with imbalance and retropulsion as well as difficulty with hand taps, however, difficult to assess given hx of arthritis. No gait or ambulation changes noted. Testing thus far has included CT brain in 02/15 which was unremarkable, though noting dilatation of ventricles and mild cerebral atrophy. Images not available as completed outside [facility]. At this time will complete further workupincluding MRI of brain to evaluate for stroke, lesion, NPH (given additional memory concerns and bladder changes), or other intracranial cause of sudden change in balance. Will also order XR lumbar spine to evaluate for degenerative changes contributing to radiculopathy. Lastly, will place consult to physical therapy for improvement of balance and stability. Note, pt does report concern for PD and at this time given exam findings and reported symptoms, would further evaluate other ddx as exam does not fully support dx. Since April she states she has been exercising. States her PT was afraid of the bones and didn't want to start therapy. Gave her seven exercises that have been helping. Also going to a cardio class weekly at the [employer] which has been helping. Feels her legs are doing better. She has come close to falling but has not fallen since her last appointment. She is no longer usinga cane as of one week ago. Denies lumbar pain. Does state that a long time ago she had low back pain for over a year which wasvery severe. Reviewed MRI report and images as well as XR report and images. Denies new changes to bowel or bladder; still wearing a pad for urinary changes. Reports some difficulty with fine motor coordination due to arthritis. States she has acted out dreams on occasion. Reports vivid dreams. Denies soft speech or slurred speech. Only difficulty swallowing with watermelon. BUE tremors. Can have dizziness and feels like the room can be spinning around her. Worse when she lays down. Has to close her eyes to keep her from spinning. Had an episode while she was at PT. States the tech at PT got her to open her eyes and noted nystagmus while she was laying down. Has not had vertigo fora while but does periodically have short spells. Has vertigo every day though states they are only little episodes. Can occasionally when up and walking; states this is when she staggers. MRI of brain and XR lumbar spine results and imaging reviewed with patient. PAST MEDICAL HISTORY Diagnosis Date Allergic rhinitis, cause unspecified Allergic rhinitis Carpal tunnel syndrome Depressive disorder, not elsewhere classified Disorder of bone and cartilage, unspecified Dysmetabolic syndrome X Dyspepsia and other specified disorders of function of stomach Dyspepsia Generalized anxiety disorder Anxiety, Generalized Generalized osteoarthrosis, involving hand Hemorrhage of gastrointestinal tract, unspecified Lichen sclerosus saw Dr. Jarvis Migraine without aura Obstructive sleep apnea (adult) (pediatric) uses C-PAP Other specified cardiac dysrhythmias(427.89) Panic disorder without agoraphobia Pure hypercholesterolemia PAST SURGICAL HISTORY Procedure Laterality Date BIOPSY BREAST OPEN INCISIONAL Bilateral Bx of breast, incisional COLONOSCOPY FLX DX W/COLLJ SPEC WHEN PFRMD 03/24/06 SPLENECTOMY TOTAL SEPARATE PROCEDURE 05/2018 Splenectomy TOTAL ABDOMINAL HYSTERECT W/WO RMVL TUBE OVARY Hysterectomy, FIGUEROA Current Outpatient Medications on File Prior to Visit Medication Sig PARoxetine (PAXIL) 20 mg tablet Take 1 tablet by mouth twice daily. rosuvastatin (CRESTOR) 5 mg tablet Take 1 tablet by mouth once daily. As directed clobetasol (TEMOVATE) 0.05 % cream Apply 1 application to affected area once daily as needed. diazePAM (VALIUM) 5 mg tablet Take 1 tablet by mouth every 8 hours as needed for muscle spasm. CPAP Initiate CPAP @ 12 cm of water with humidification. Mask (per patient preference) optional chin strap (if indicated) , filters, tubing, humidifier and lifetime supplies. alendronate (FOSAMAX) 70 mg tablet Take 1 tablet by mouth one time a week. Take with a full glass of water, on an empty stomach; do NOT lie down for 30minutes. verapamil (CALAN, ISOPTIN) 80 mg tablet Take one pill daily; take another pill daily as needed for heart racing metFORMIN ER (GLUCOPHAGE XR) 500 mg 24 hr tablet Take 1 tablet by mouth twice daily before meals. or as directed phenazopyridine (PYRIDIUM) 200 mg tablet Take 1 tablet by mouth three times daily as needed. (Patient not taking: Reported on 05/07/2022) albuterol HFA (PROVENTIL HFA, VENTOLIN HFA) 90 mcg/actuation inhaler INHALE 2 PUFFS BY MOUTH UP TO 4 TIMES DAILY NEEDED naproxen (NAPROSYN) 500 mg tablet Take 1 tablet by mouth twice daily as needed (for pain/inflammation). Take with food. acyclovir (ZOVIRAX) 400 mg tablet Take 1 tablet by mouth twice daily. gabapentin (NEURONTIN) 300 mg capsule Take 1 capsule by mouth three times daily. fluticasone (FLONASE) 50 mcg/actuation nasal spray Use 2 Sprays in each nostril once daily. for sinus drainage and genstion pumpkin seed extract-soy germ (AZO BLADDER CONTROL) 300 mg cap Take 1-3 capsules by mouth once daily. (usually just needs 1 capsule daily) COMPOUNDED PRESCRIPTION CPAP mask COMPOUNDED PRESCRIPTION CPAP mask--Mirage FX with formal mask fitting Current Facility-Administered Medications on File Prior to Visit Medication perflutren lipid microspheres 1.3 mL in NaCl (PF) 0.9% 10 mL injection (DEFINITY) sodium chloride 0.9 % (flush) 10 mL (BD POSIFLUSH) Social History Tobacco Use Smoking status: Never Smokeless tobacco: Never Substance Use Topics Alcohol use: Yes Comment: She drinks approximately 1 sis per month Drug use: No ALLERGIES Allergen Reactions Epinephrine Other: See Comments Tachycardia, becomes incoherent Novocaine [Other] tachycardia Penicillins Rash Percocet [Oxycodone* Vomiting It makes her feel drunk Xylocaine [Lidocain* tachycardia Review of Systems: ENT: denies loss of hearing, vertigo Vision: denies blurring vison, double vision/diplopia Cardiopulmonary: denies chest pain, palpitations Respiratory: denies shortness of breath GI: denies recent nausea, vomiting, diarrhea, constipation : denies + incontinence (urgency and leaking) Musculoskeletal: denies + weakness (L leg), + joint ache/pain Back/spine: denies low back or cervical pains Neuro: denies + tremors, loss of feeling, dizziness, seizure, blackout, + paresthesia, facial paresthesia, facial weakness, difficulty in speech, slurring of words, dysarthria, dysphagia, memory loss, headache Physical Exam: Patient is alert and in no distress. Dress is appropriate. Mood is appropriate Breathing appears regular and unstressed Neurologic examination: Limited exam due to virtual platform. Cognitively intact. No deficits. No formal MMSE performed. CN: extraocular movements intact with no nystagmus, face is symmetric with no facial droop, hearingintact bilaterally, shoulder shrug is symmetric. Motor exam shows 5/5 strength symmetric through the upper and lower extremities in all groups observed. Coordination: No dysmetria on finger to nose. Tremor to LUE with arms outstretched. No drift seen. Gait normal in stance and pattern. Able to walk on tip toes. Tandem with mild imbalance. Per previous in office visit: No tremor at rest. Mild tremor with arm outstretched on L. Tandem with imbalance. Retropulsion with pull test. CARMENZA of pronation and supination, finger and hand tapping difficult bilaterally. Toe tapping intact.There is no asterixis of the hands. No rigidity, cog wheeling. Normal station and stride. Difficulty walking on toes. Good arm swing and body turn; rises from chair well. Labs/studies: MRI Report MRI BRAIN WO IVCON Exam End: 06/02/2022 4:29 PM (Final result) Narrative: * * *Final Report* * * DATE OF EXAM: Jun 02 2022 4:29PM [facility] 0294 - MRI BRAIN WO IVCON / PROCEDURE REASON: Transient cerebral ischemia, unspecified type * * * * Physician Interpretation * * * * EXAMINATION: MRI BRAIN WO IVCON CLINICAL HISTORY: Transient cerebral ischemia. Dizziness. Balance problems. Falls. TECHNIQUE: Routine noncontrast MRI protocol including diffusion images. MQ: [id number] COMPARISON: None. RESULT: Acute Change: There is no evidence of restricted diffusion to suggest an acute infarct. Hemorrhage: No evidence of prior parenchymal hemorrhage on the gradient echo images. Mass Lesion/ Mass Effect: No evidence of an intracranial mass or extra-axial fluid collection. No significant mass effect. Chronic Change: Scattered patchy and confluent areas of increased T2 and FLAIR signal are present in the supratentorial white matter which is nonspecific but likely represents chronic microvascular ischemia. Parenchyma: There is mild generalized parenchymal volume loss. The brain parenchyma is otherwise within normal limits of signal intensity and morphology. Ventricles: Ventriculomegaly corresponds to the degree of parenchymal volume loss. Skull Base: Hypothalamic and pituitary region are grossly normal. Craniocervical junction is normal. No significant marrow replacement process. Vasculature: Major intracranial arterial structures, and dural venous sinuses show typical flow void, suggesting patency by spin echo criteria. Other: The visualized paranasal sinuses and mastoid air cells are clear. The orbits and extracranial soft tissues are unremarkable. Impression: IMPRESSION: Moderate chronic microvascular ischemic change and mild volume loss. No acute infarct or any other evidence of an acute intracranial abnormality. No clear cause for vertigo on the current examination. Home Therapy Clinician: PSCB Transcribe Date/Time: Jun 02 2022 5:03P Dictated by : UCHE GALICIA MD This examination was interpreted and the report reviewed and electronically signed by: UCHE GALICIA MD on Jun 02 2022 5:06PM EST XR Lumbar Spine 05/07/22: IMPRESSION: L1 vertebral body compression deformity/age indeterminate fracture. Lumbar spine degenerative changes with multilevel disc space narrowing. Previously Reviewed: CT Brain 02/16/22: FINDINGS: There are calcifications around the carotid artery. These are noted in the cavernous carotid arteries. Normal calvarium. Normal soft tissues. There is mild cerebral atrophy with widening of the extra-axial spaces and ventricular dilatation. There are areas of decreased attenuation within the white matter tracts of the supratentorial brain, consistent with microvascular disease changes. Normal basal ganglia and thalami. Normal brainstem. There is mild cerebellar atrophy. There is no intracranial hemorrhage. There are no findings of an acute ischemic infarction. Degenerative changes of the mandibular condyles. Component Latest Ref Rng & Units 12/22/2021 Protein, Total 6.3 - 8.0 g/dL 7.3 Albumin 3.9 - 4.9 g/dL 4.3 Calcium 8.5 - 10.2 mg/dL 9.6 Bilirubin, Total 0.2 - 1.3 mg/dL 0.2 Alkaline Phosphatase 34 - 123 U/L 93 AST 13 - 35 U/L 25 ALT 7 - 38 U/L 22 Glucose 74 - 99 mg/dL 78 BUN 7 - 21 mg/dL 13 Creatinine 0.58 - 0.96 mg/dL 0.85 Sodium 136 - 144 mmol/L 135 (L) Potassium 3.7 - 5.1 mmol/L 4.8 Chloride 97 - 105 mmol/L 99 CO2 22 - 30 mmol/L 25 Anion Gap 9 - 18 mmol/L 11 eGFR >=60 mL/min/1.73m 72 WBC 3.70 - 11.00 k/uL 9.29 RBC 3.90 - 5.20 m/uL 4.79 Hemoglobin 11.5 - 15.5 g/dL 14.3 Hematocrit 36.0 - 46.0 % 45.7 MCV 80.0 - 100.0 fL 95.4 MCH 26.0 - 34.0 pg 29.9 MCHC 30.5 - 36.0 g/dL 31.3 RDW-CV 11.5 - 15.0 % 15.9 (H) Platelet Count 150 - 400 k/uL 355 MPV 9.0 - 12.7 fL 11.4 Absolute nRBC <0.01 k/uL <0.01 Cholesterol, Total <200 mg/dL 249 (H) Triglyceride <150 mg/dL 199 (H) HDL Cholesterol >39 mg/dL 41 Non HDL Cholesterol <130 mg/dL 208 (H) Fasting Time hrs 6 VLDL Cholesterol <30 mg/dL 40 (H) TC:HDL Ratio <5.10 6.07 (H) LDL Cholesterol <100 mg/dL 168 (H) LDL:HDL Ratio <2.54 4.10 (H) Hemoglobin A1C 4.3 - 5.6 % 6.7 (H) Estimated Average Glucose mg/dL 146 TSH 0.270 - 4.200 mIU/L 3.490 Vitamin D 25 Hydroxy 31.0 - 80.0 ng/mL 34.9 Assessment/Plan: R26.81 Gait instability (primary encounter diagnosis) M48.061 Spinal stenosis of lumbar region, unspecified whether neurogenic claudication present R42 Vertigo R26.89 Balance disorder R25.1 Tremor R29.6 Frequent falls Comment: Patient previously seen for balance concerns and frequent falls that began a few years agowith worsening over the past year. Also reporting tremor and mild memory concerns. Notable history includes migraines, sarcoidosis, ELISHA with use of PAP, CTS, anxiety, OA, hld, DM, cardiac dysrhythmiaand neuropathy as well as hx of arthritis with joint pain throughout. Past testing included CT of brain which was unremarkable. In interim, MRI of brain completed noting moderate chronic microvascular ischemia but otherwise negative for etiology (NPH, stroke) of balance concerns and falls. Possiblethat moderate microvascular changes contributing to memory concerns and discuss risk factors and jeff atments; pt will begin ASA 81mg daily and follow up with PCP for risk factor management. XR of lumbar spine also completed with finding of L1 compression deformity and multilevel disc space narrowing. Given findings, concern for possible lumbar radiculopathy. Physical therapy previously prescribed and she has attended one session thus far, however, she has not returned due to insurance concerns and has been exercising regularly and completing HEP at her house. She does note improvement in symptoms today and is no longer using a cane to assist with ambulation. She is interested in following upwith PT through [facility] and new consult ordered. Will also proceed with MRI of lumbar spine to further evaluate degree of degenerative changes. May consider consult to spine med pending results. Also of note, per PT report, pt experienced sx concerning for vertigo during appointment; sudden dizziness and nystagmus. On discussion she does report periodic vertigo episodes that usually last forshort period of time. Occasionally these occur when walking and cause her to stagger. Would recommend completion of vestibular therapy or physical therapy to treat vertigo symptoms. Again, new consult placed to PT as noted above. She will follow up after completion of therapy and after testing is complete to review results and determine further POC. [facility] on 06/17/22 MRI LUMBAR SPINE WO IVCON CONSULT TO PHYSICAL THERAPY Michelle Pacheco APRN.ELADIA I spent a total of 45 minutes on the date of the service which included preparing to see the patient, [id number] patient care, completing clinical documentation, obtaining and/or reviewing separately obtained history, performing a medically appropriate examination, counseling and educating the pat ient/family/caregiver, ordering medications, tests, or procedures, and communicating results to thepatient/family/caregiver. documented in this encounterSt. Mary'[facility]09-15-2022 NoteHNO ID: [id number] Author: Latrice Tavares Service: ? Author Type: ? Type: Progress Notes Filed: 06/12/2022 11:46 AM Note Text: Elizabeth Rodrigez was identified through a medication adherence outreach initiative based on pharmacy claims data from [facility] (insurer). Patient was reviewed 06/08/2022 due to medication adherence concerns with cholesterol medication (statin) rosuvastatin 5 mg. Patient was identified by name and . Per reconcile dispense: 05/15/2022 Per data report last fill date and quantity: 05/15/2022 - 90 tablets > 90 days supply Need for medication refills: refill due 08/14/2022; 3 refills remaining Outcome of review: pharmacy was contacted to determine if Rx had been refilled. Medicaton was filled and picked up on 05/15 for a 90 days supply. Latrice Avalos [facility] PharmD. [address]09-15-2022 NoteHNO ID: [id number] Author: Wendy Montenegro RPh Service: ? Author Type: Pharmacist Type: Progress Notes Filed: 06/12/2022 11:46 AM Note Text: Approving student documentation and outreach below. Wendy Montenegro PharmD, [facility]09-15-2022 NotePatient Outreach (ME CABALLERO) ELIZABETH RODRIGEZ ([id number]) 1945 F Date Time Provider Department 06/11/22 WENDY MONTENEGRO During your visit today, we recorded the following information about you: Wendy Montenegro RPh 06/12/2022 11:46 AM Signed Approving student documentation and outreach below. Wendy Montenegro PharmD, [facility] Latrice Tavares 06/12/2022 11:46 AM Signed Elizabeth Rodrigez was identified through a medication adherence outreach initiative based on pharmacy claims data from [employer] (insurer). Patient was reviewed 06/08/2022 due to medication adherence concerns with cholesterol medication (statin) rosuvastatin 5 mg. Patient was identified by name and . Per reconcile dispense: 05/15/2022 Per data report last fill date and quantity: 05/15/2022 - 90 tablets > 90 days supply Need for medication refills: refill due 08/14/2022; 3 refills remaining Outcome of review: pharmacy was contacted to determine if Rx had been refilled. Medicaton was filled and picked up on 05/15 for a 90 days supply. GARRICK Hurt PharmD. Candidate 2022 Allergies As of Date: 06/11/2022 Noted Allergy Reaction EPINEPHRINE 11/17/2019 14 - Other: See Comments Comments: Tachycardia, becomes incoherent novocaine [Other] 08/13/2005 Comments: tachycardia PENICILLINS 08/13/2005 2 - Rash PERCOCET (OXYCODONE-ACETAMINOPHEN)05/24/2008 11 - Vomiting Comments: It makes her feel drunk XYLOCAINE (LIDOCAINE HCL (LOCAL A*08/14/2005 Comments: tachycardia Date Reviewed: 05/11/2022 Reviewed by: Michelle Pacheco APRN.BEER COOLER - Fully Assessed Reason for Visit: Allied Health Visit [5] Cmt: Medication Adherence Outreach Prescriptions as of 06/12/2022 - PARoxetine (PAXIL) 20 mg tablet Take 1 tablet by mouth twice daily. - rosuvastatin (CRESTOR) 5 mg tablet Take 1 tablet by mouth once daily. As directed - clobetasol (TEMOVATE) 0.05 % cream Apply 1 application to affected area once daily as needed. - diazePAM (VALIUM) 5 mg tablet Take 1 tablet by mouth every 8 hours as needed for muscle spasm. - CPAP Initiate CPAP @ 12 cm of water with humidification. Mask (per patient preference) optional chin strap (if indicated) , filters, tubing, humidifier and lifetime supplies. - alendronate (FOSAMAX) 70 mg tablet Take 1 tablet by mouth one time a week. Take with a full glass of water, on an empty stomach; do NOT lie down for 30minutes. - verapamil (CALAN, ISOPTIN) 80 mg tablet Take one pill daily; take another pill daily as needed for heart racing - metFORMIN ER (GLUCOPHAGE XR) 500 mg 24 hr tablet Take 1 tablet by mouth twice daily before meals. or as directed - phenazopyridine (PYRIDIUM) 200 mg tablet Take 1 tablet by mouth three times daily as needed. - albuterol HFA (PROVENTIL HFA, VENTOLIN HFA) 90 mcg/actuation inhaler INHALE 2 PUFFS BY MOUTH UP TO 4 TIMES DAILY NEEDED - naproxen (NAPROSYN) 500 mg tablet Take 1 tablet by mouth twice daily as needed (for pain/inflammation). Take with food. - acyclovir (ZOVIRAX) 400 mg tablet Take 1 tablet by mouth twice daily. - gabapentin (NEURONTIN) 300 mg capsule Take 1 capsule by mouth three times daily. - fluticasone (FLONASE) 50 mcg/actuation nasal spray Use 2 Sprays in each nostril once daily. for sinus drainage and genstion - pumpkin seed extract-soy germ (AZO BLADDER CONTROL) 300 mg cap Take 1-3 capsules by mouth once daily. (usually just needs 1 capsule daily) - COMPOUNDED PRESCRIPTION CPAP mask - COMPOUNDED PRESCRIPTION CPAP mask--Mirage FX with formal mask fitting Facility-Administered Medications as of 06/12/2022 - perflutren lipid microspheres 1.3 mL in NaCl (PF) 0.9% 10 mL injection (DEFINITY) - sodium chloride 0.9 % (flush) 10 mL (BD POSIFLUSH) Problem List As Of Date 06/11/2022 Noted Resolved Disorder of bone and cartilage [M89.9, M94.9] ALLERGIC RHINITIS NOS [J30.9] Dyspepsia and other specified disorders of func* 05/12/2006 GENERALIZED ANXIETY DIS [F41.1] Recurrent major depressive disorder, in partial* PURE HYPERCHOLESTEROLEM [E78.00] GEN OSTEOARTHROS-HAND [M15.9] CARDIAC DYSRHYTHMIAS NEC [I49.8] 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] MELENA, BLOOD IN STOOL [K92.1] 03/02/2006 05/12/2006 GASTROINTEST HEMORR NOS [K92.2] 05/12/2006 MGRN WO [facility] WO [facility] MGR [G43.009] 09/12/2008 Ascending aortic aneurysm (HCC) [I71.2] 09/12/2008 ELISHA on CPAP [G47.33, Z99.89] 06/18/2015 Non morbid obesity due to excess calories [E66.*07/25/2015 Primary osteoarthritis of both knees [M17.0] 10/14/2015 Chronic pain of left knee [M25.562, G89.29] 10/14/2015 PSVT (paroxysmal supraventricular tachycardia) * Lichen sclerosus [L90.0] Hearing difficulty of both ears [H91.93] 07/11/2017 Controlled type 2 diabetes mellitus without com*08/28/2018 Chronic pain of right knee [M25.561, G89.29] 12/30/2018 Obesity, Class II, BMI 35-39.9 [E66.9] 07/19/2021 (more content not included)...[facility] 06-11-2022 History of Present illness Narrative* Latrice Tavares - 06/11/2022 1:38 PM EDT Elizabeth Rodrigez was identified through a medication adherence outreach initiative based on pharmacy claims data from [employer] (insurer). Patient was reviewed 06/08/2022 due to medication adherence concerns with cholesterol medication (statin) rosuvastatin 5 mg. Patient was identified by name and . Per reconcile dispense: 05/15/2022 Per data report last fill date and quantity: 05/15/2022 - 90 tablets > 90 days supply Need for medication refills: refill due 08/14/2022; 3 refills remaining Outcome of review: pharmacy was contacted to determine if Rx had been refilled. Medicaton was filled and picked up on 05/15 for a 90 days supply. GARRICK Hurt PharmD. Candidate 2022 * Wendy Montenegro RPh - 06/11/2022 1:37 PM EDT Approving student documentation and outreach below. Wendy Montenegro PharmD, BCPS documented in this encounterSt. Mary'[facility]09-06-2022 History of Present illness Narrative* Elba Hickey MRI Tech - 06/02/2022 4:00 PM EDT Radiology Service Progress Note PATIENT NAME: Elizabeth Rodrigez DATE OF SERVICE: June 02, 2022 TIME: 4:15 PM PATIENT IDENTITY VERIFICATION COMPLETED USING TWO (2) IDENTIFIERS: Name and Date of confirmedby patient verbally. FALL SCREENING: Has the patient had 2 falls in the last year or 1 fall with injury or currently using an Ambulatory Assistive Device (Walker, Cane, Wheelchair, Crutches, etc.)? Yes, Patient High Riskfor Falls What interventions were put in place to prevent falls during this visit? Instructed Patient to Callfor Help if Needed, Offered Assistance with Transfers/Clothing, Instructed Patient to Remain Seated(Not on Exam Table) Until Exam, and Increased Observations by Caregivers PATIENT GENDER DATA: Female. status: : No status: NO. PATIENT RELEVANT IMPLANT DATA REVIEWED: Yes RADIOLOGY DEPARTMENT: MR; Exam(s) Completed: Head: Routine Brain PERIPHERAL IV DATA: Not applicable SIGNED BY: HIEU Myrick Tech June 02, 2022 4:15 PM documented in this encounterSt. Mary'[facility]08-26-2022 Miscellaneous Notes* Telephone Encounter - Eva Murrell Ma - 05/22/2022 12:45 PM EDT Left message with Dr. Gonsalez info * Telephone Encounter - Yenifer Gonsalez MD - 05/21/2022 5:11 PM EDT Below noted--patient has already seen Michelle Pacheco who ordered the MRI. Noted that appointment was made today for later in May. If MRI shows something needing more urgent appointment, that can be addressed then. In the meanwhile, fall prevention important given her balance and leg issues. * Telephone Encounter - Latrice Bedolla MA - 05/19/2022 10:05 AM EDT Deonna, please assist patient with scheduling stevens/dahlhausen edwige after 06/02 testing. Latrice Bedolla MA * Telephone Encounter - Latrice Bedolla MA - 05/18/2022 4:53 PM EDT Results scanned into scanned documents. Next available appointment is [place] with Dr. King 06/09.Please advise if that is okay? Latrice Bedolla MA * Telephone Encounter - Addie Dupree LPN - 05/18/2022 4:10 PM EDT Pt called back in to get apt with neurology. Got a PSS on the line and explained below. She will help pt get an apt scheduled. Addie Dupree LPN * Telephone Encounter - Dawson Hernandez RN - 05/18/2022 3:56 PM EDT Pt called in and reports she went to rehab today and they examined her. She states they sent over their opinion of what they think is happening with her legs. She reports they want her to see Neurology right after she has MRI of her brain on 06/02/22. Pt was put through to scheduling to set up Neurology appointment. Pt states she is worsening day by day and she doesn't think she will be able to walk in a few months, and she states the Rehab people didn't think so either. Pt wanted to update provider on her condition. documented in this encounterSt. Mary'[facility]08-22-2022 Miscellaneous Notes* Telephone Encounter - Latrice Bedolla MA - 05/18/2022 5:08 PM EDT PLEASE SEE OTHER TE 05/18/22. * Telephone Encounter - Shena Kay Pss - 05/18/2022 4:19 PM EDT Patient calling in needing to schedule a follow up for after her MRI on 06/02. I was unable to find any openings prior to September. Patient is willing to travel to [place] or even [place] to be seen. Stated she is getting worse since being seen last. Please advise and contact patient back at number listed. documented in this encounterSt. Mary'[facility]08-19-2022 Miscellaneous Notes* Telephone Encounter - Cary Tilley - 05/15/2022 10:38 AM EDT Patient is scheduled to have her MRI done in [place], 06/02 * Telephone Encounter - Ashwini Proctor - 05/14/2022 9:25 AM EDT 1st attempt left message to return call to schedule MRI Brain * Telephone Encounter - Latrice Bedolla MA - 05/14/2022 8:05 AM EDT Please assist patient with scheduling MRI. Patient aware she will be contacted. Latrice Bedolla MA documented in this encounterSt. Mary'S [facility]08-16-2022 Miscellaneous Notes* Telephone Encounter - Yenifer Gonsalez MD - 05/12/2022 1:06 PM EDT The following approved medication requests have been transmitted electronically. Requested Prescriptions Signed Prescriptions Disp Refills PARoxetine (PAXIL) 20 mg tablet 180 tablet 3 Sig: Take 1 tablet by mouth twice daily. Authorizing Provider: YENIFER GONSALEZ rosuvastatin (CRESTOR) 5 mg tablet 90 tablet 3 Sig: Take 1 tablet by mouth once daily. As directed Authorizing Provider: YENIFER GONSALEZ clobetasol (TEMOVATE) 0.05 % cream 60 g 5 Sig: Apply 1 application to affected area once daily as needed. Authorizing Provider: YENIFER GONSALEZ MD * Telephone Encounter - Nina Lowery Pss - 05/11/2022 3:17 PM EDT Elizabeth is requesting: Clobetasol 0.05% cream, but would like it in a bigger tube if available. She also would like her rosuvastatin changed. She would like to start taking it once daily. Please notify patient when sent. * Telephone Encounter - Nina Proctor - 05/11/2022 3:15 PM EDT Pharmacy verified in [facility] Patient has been identified by name and date of : Yes Patient aware RX will be sent to pharmacy. No need to notify patient. Patient phones for refill(s): Requested Prescriptions Pending Prescriptions Disp Refills PARoxetine (PAXIL) 20 mg tablet 180 tablet 3 Sig: Take 1 tablet by mouth twice daily. Date of last office visit : 03/11/2022 Date of next office visit : 06/24/2022 Last 2 Encounter Wt Readings: Date: Wt: 05/07/2022 79.6 kg (175 lb 6.4 oz) 03/11/2022 80.7 kg (178 lb) Please advise. Nnia Lowery Pss documented in this encounterSt. Mary'S [facility]08-11-2022 History of Present illness Narrative* Elizabeth Garcia RT(R) - 05/07/2022 4:10 PM EDT Radiology Service Progress Note PATIENT NAME: Elizabeth Rodrigez DATE OF SERVICE: May 07, 2022 TIME: 4:12 PM PATIENT IDENTITY VERIFICATION COMPLETED USING TWO (2) IDENTIFIERS: Name and Date of confirmedby patient verbally. FALL SCREENING: Has the patient had 2 falls in the last year or 1 fall with injury or currently using an Ambulatory Assistive Device (Walker, Cane, Wheelchair, Crutches, etc.)? Yes, Patient High Riskfor Falls What interventions were put in place to prevent falls during this visit? Increased Observations by Caregivers PATIENT GENDER DATA: Female. status: : No status: NO. PATIENT RELEVANT IMPLANT DATA REVIEWED: Yes RADIOLOGY DEPARTMENT: General X-ray: Exam(s) Completed: Spine X-Ray(s): Lumbar AP / LAT / L5-S1 PERIPHERAL IV DATA: Not applicable SIGNED BY: RT Mari(Suman) May 07, 2022 4:12 PM documented in this encounterSt. Mary'[facility]08-09-2022 History of Present illness Narrative* Christa Cabrera APRN.CNS - 05/05/2022 12:47 PM EDT Rx sent * Jovana Moore - 05/01/2022 11:14 AM EDT Elizabeth Rodrigez is identified through a medication adherence outreach initiative based on pharmacy claims data from [employer] (insurer). Patient is reviewed 05/01/22 due to medication adherence concerns with HLD medication(s) for Rosuvastatin 5 mg. Per data report last fill date and quantity: 02/08/2022 for a 30 day supply Per reconcile dispense: last dispensed on 02/08/2022 for a 30 day supply Per call to pharmacy: last dispensed on 02/08/2022 on a 30 day supply Contacted patient: Spoke with patient Patient is identified by Name and . Discussion on adherence consisted of - Patient still taking the medication, tolerating well > is in need for refills on it - Patient states that she takes a higher quantity that what was on the last Rx sent > agreed on contacting PCP to send new Rx with amount indicated (as per PCP). Any need for medication refills YES/NO/Active: yes The Patient verbalizes understanding and denies further questions/concerns at this time. Outcome of review: (choose one of the options selected in excel spreadsheet) - Checked Reconcile Dispense > New Rx needed, request sent to PCP - Contacted Pharmacy, last dispensed on 02/08/22 for a 30 day supply > Rx filled per reconcile dispense - Contacted Patient > New Rx needed, request sent to PCP Jovana Moore * Wendy Montenegro RPh - 05/01/2022 11:14 AM EDT Approving student documentation and outreach below. Order for 90 day supply of rosuvastatin routed to PCP. Requested Prescriptions Pending Prescriptions Disp Refills rosuvastatin (CRESTOR) 5 mg tablet 45 tablet 3 Sig: Take 1 tablet by mouth every other day. As directed Wendy Montenegro RPh PharmD BCPS documented in this encounterSt. [facility] [facility] History of Present illness Narrative* Toy Booth - 05/01/2022 2:43 PM EDT Elizabeth Rodrigez is identified through a medication adherence outreach initiative based on pharmacy claims data from [employer] (insurer). Patient is reviewed 05/01/22 due to medication adherence concerns with METFORMIN 500 MG medication(s) for diabetes. Per data report last fill date and quantity: 01/15/2022 and QTY 90 Per reconcile dispense: 04/15/2022 and QTY 90 Outcome of review: filled per Epic dispense report Toy Booth Traveling Storekeeper Associated attestation - Lela Reyes [facility] - 05/01/2022 2:54 PM EDT Approving student documentation and outreach below. Lela Reyes, PharmD, BCACP Primary Care Clinical Strategic Marketing Associate documented in this encounterSt. Mary'[facility] [facility]08-[facility] History of Present illness Narrative* Katrin MarshallT - 04/27/2022 9:22 AM EDT Elizabteh Rodrigez is identified through a medication adherence outreach initiative based on pharmacy claims data from [employer] (insurer). Patient is reviewed 04/27/22 due to medication adherence concerns with Metformin medication(s) for Diabetes. Per data report last fill date and quantity: 01/15/2022 for 90 days Per reconcile dispense: 01/15/2022 for 90 days Per call to pharmacy: 04/15/2022 for 90 days Outcome of review: (choose one of the options selected in excel spreadsheet) - Filled on time Katrin Robert documented in this encounterSt. Mary'[facility] [facility] History of Present illness Narrative* Ryanne Guajardo RDMS - 03/11/2022 1:30 PM EDT Radiology Service Progress Note PATIENT NAME: Elizabeth Rodrigez DATE OF SERVICE: March 11, 2022 TIME: 1:49 PM PATIENT IDENTITY VERIFICATION COMPLETED USING TWO (2) IDENTIFIERS: Name and Date of confirmedby patient verbally. FALL SCREENING: Has the patient had 2 falls in the last year or 1 fall with injury or currently using an Ambulatory Assistive Device (Walker, Cane, Wheelchair, Crutches, etc.)? Yes, Patient High Riskfor Falls What interventions were put in place to prevent falls during this visit? Instructed Patient to Callfor Help if Needed, Offered Assistance with Transfers/Clothing, Instructed Patient to Remain Seated(Not on Exam Table) Until Exam and Increased Observations by Caregivers PATIENT GENDER DATA: Female. status: : No status: N/A PATIENT RELEVANT IMPLANT DATA REVIEWED: Not Applicable RADIOLOGY DEPARTMENT: Ultrasound PERIPHERAL IV DATA: Not applicable SIGNED BY: Ryanne Guajardo RDMS RVT March 11, 2022 1:49 PM documented in this encounterSt. Mary'[facility] [facility]06-15-20[facility] History of Present illness Narrative* RT Newton(R) - 03/11/2022 1:00 PM EDT Radiology Service Progress Note PATIENT NAME: Elizabeth Rodrigez DATE OF SERVICE: March 11, 2022 TIME: 1:05 PM PATIENT IDENTITY VERIFICATION COMPLETED USING TWO (2) IDENTIFIERS: Name and Date of confirmedby patient verbally. FALL SCREENING: Has the patient had 2 falls in the last year or 1 fall with injury or currently using an Ambulatory Assistive Device (Walker, Cane, Wheelchair, Crutches, etc.)? No PATIENT GENDER DATA: Female. status: : No status: NO. PATIENT RELEVANT IMPLANT DATA REVIEWED: Not Applicable RADIOLOGY DEPARTMENT: Mammography PERIPHERAL IV DATA: Not applicable SIGNED BY: RT Newton(R) March 11, 2022 1:05 PM documented in this encounterSt. Mary'[facility] [facility]06-15-[facility] History of Present illness Narrative* Annette Pinto APRN.BEER COOLER - 03/11/2022 11:12 AM EDT CC: Patient presents with: difficulty walking HPI Elizabeth Rodrigez is a 76 year old female who presents today for above. Patient reports difficulty with balance and coordination affecting her gait and causing her to fallfrequently. This has been an ongoing issue for sometime now but gradually worsening over the past year. She has fallen twice this past week, no injury. States she either trips over her feet or loses her balance and falls. She brought a letter with her today listing all of her symptoms that are concerning to her for possible Parkinson's disease: feet get crossed and my brain doesn't tell them what to do, tremors lefthand and recently in the right as well, forgetfulness, fatigue, vivid dreams, I have woke up more than once with my hand in the air talking to someone, irritability, short tempered, walking crooked, dizziness with position changes. She did have an uncle with Parkinson's but no other family history. No new medications or dose changes No history of stroke She is taking Gabapentin for pain and anxiety, denies neuropathy but admits to numbness/tingling in lower legs excluding feet. She is diabetic, blood sugars well controlled and denies hypoglycemia No alcohol or illicit drug use History of migraines- no new or worsening symptoms Tremors- only occurring with arms outstretched or picking something up Auditory hallucinations- hearing someone call her name even though no one is around Visual hallucinations-involving colors. States I have looked at someone clothes and think they area certain color only to find out it is actually a completely different color. REVIEW OF SYSTEMS General: no fevers, no chills, no night sweats, no change in appetite, no change in energy and no significant changes in weight Musculoskeletal: left knee pain/weakness. No back or muscle pains Neurologic: no syncope, no feeling faint, no seizures, no confusion, no numbness or tingling of hands, no neck stiffness, no involuntary movements Psych: history of anxiety and depression, she is in counseling and thinks it is helping her manage PAST MEDICAL HISTORY Diagnosis Date Allergic rhinitis, cause unspecified Allergic rhinitis Carpal tunnel syndrome Depressive disorder, not elsewhere classified Disorder of bone and cartilage, unspecified Dysmetabolic syndrome X Dyspepsia and other specified disorders of function of stomach Dyspepsia Generalized anxiety disorder Anxiety, Generalized Generalized osteoarthrosis, involving hand Hemorrhage of gastrointestinal tract, unspecified Lichen sclerosus saw Dr. Jarvis Migraine without aura Obstructive sleep apnea (adult) (pediatric) uses C-PAP Other specified cardiac dysrhythmias(427.89) Panic disorder without agoraphobia Pure hypercholesterolemia PAST SURGICAL HISTORY Procedure Laterality Date BIOPSY BREAST OPEN INCISIONAL Bilateral Bx of breast, incisional COLONOSCOPY FLX DX W/COLLJ SPEC WHEN PFRMD 03/24/06 SPLENECTOMY TOTAL SEPARATE PROCEDURE 05/2018 Splenectomy TOTAL ABDOMINAL HYSTERECT W/WO RMVL TUBE OVARY Hysterectomy, FIGUEROA ALLERGIES Epinephrine, Novocaine [Other], Penicillins, Percocet [Oxycodone- Acetaminophen], and Xylocaine [Lidocaine Hcl (Local Anesth.)] MEDICATIONS CPAP Initiate CPAP @ 12 cm of water with humidification. Mask (per patient preference) optional chin strap (if indicated) , filters, tubing, humidifier and lifetime supplies. alendronate (FOSAMAX) 70 mg tablet Take 1 tablet by mouth one time a week. Take with a full glass of water, on an empty stomach; do NOT lie down for 30minutes. verapamil (CALAN, ISOPTIN) 80 mg tablet Take one pill daily; take another pill daily as needed for heart racing metFORMIN ER (GLUCOPHAGE XR) 500 mg 24 hr tablet Take 1 tablet by mouth twice daily before meals. or as directed rosuvastatin (CRESTOR) 5 mg tablet Take 1 tablet by mouth every other day. As directed clorazepate (TRANXENE T) 7.5 mg tablet Take 1 tablet by mouth twice daily for 90 days. clobetasol (TEMOVATE) 0.05 % cream Apply 1 application to affected area once daily as needed. phenazopyridine (PYRIDIUM) 200 mg tablet Take 1 tablet by mouth three times daily as needed. albuterol HFA (PROVENTIL HFA, VENTOLIN HFA) 90 mcg/actuation inhaler INHALE 2 PUFFS BY MOUTH UP TO 4 TIMES DAILY NEEDED naproxen (NAPROSYN) 500 mg tablet Take 1 tablet by mouth twice daily as needed (for pain/inflammation). Take with food. acyclovir (ZOVIRAX) 400 mg tablet Take 1 tablet by mouth twice daily. gabapentin (NEURONTIN) 300 mg capsule Take 1 capsule by mouth three times daily. PARoxetine (PAXIL) 20 mg tablet Take 1 tablet by mouth twice daily. fluticasone (FLONASE) 50 mcg/actuation nasal spray Use 2 Sprays in each nostril once daily. for sinus drainage and genstion pumpkin seed extract-soy germ (AZO BLADDER CONTROL) 300 mg cap Take 1-3 capsules by mouth once daily. (usually just needs 1 capsule daily) COMPOUNDED PRESCRIPTION CPAP mask COMPOUNDED PRESCRIPTION CPAP mask--Mirage FX with formal mask fitting FAMILY HISTORY Problem Relation Age of Onset Alcohol/Drug Father Heart disease Father Colon Cancer Paternal Grandfather Colon Cancer Maternal Grandmother Arthritis Sister other (mvp) Sister other (palpitations) Mother Alcohol/Drug Brother Mental illness Brother Alcohol/Drug Sister Mental illness Sister Heart disease Sister No Known Problems Sister other (Hep C) Sister No Known Problems Sister Mental illness Brother Social History Tobacco Use Smoking status: Never Smoker Smokeless tobacco: Never Used Substance Use Topics Alcohol use: Yes Comment: She drinks approximately 1 sis per month Drug use: No PHYSICAL EXAM BP 132/86 Pulse 110 Resp 18 Wt 80.7 kg (178 lb) BMI 33.41 kg/m General Appearance: well appearing, in no acute distress, alert Pysch: affect is anxious Skin: Skin color, texture, turgor normal for age; Eyes: PERRLA, EOM's intact, conjunctiva pink and moist, no icterus, sclera white, non-injected Lungs: Lungs clear to auscultation. No wheezing, rhonchi, rales. Heart: RRR without murmur, gallop, or rubs. No ectopy Neurological: Gait- slow but steady, normal arm swing, unable to walk on tip toes or heels or heel to toe Romberg- unable to maintain balance Muscle strength- 3+/5 BUE and 4/5 BLE speech normal, mental status intact, cranial nerves 2-12 intact, rapid alternating movements normal, finger to nose normal, reflexes normal and symmetric, :Shoes and socks removed, normal distal pulses, sensitive to 10 gm monofilament and vibratory perception normal DATA REVIEWED: Most recent labs ASSESSMENT/PLAN: 1. Balance disorder - ICD9: 781.99, ICD10: R26.89 (primary diagnosis) Multiple possible etiologies.differentials include diabetic neuropathy, ENVIRONMENTAL ATTORNEY disorder, medication side effects (Tranxene, Gabapentin). No alarm symptoms or exam findings. - CONSULT TO NEUROLOGY - CONSULT TO PHYSICAL THERAPY 2. Gait instability - ICD9: 781.2, ICD10: R26.81 As above - CONSULT TO NEUROLOGY - CONSULT TO PHYSICAL THERAPY 3. Tremor - ICD9: 781.0, ICD10: R25.1 As above - CONSULT TO NEUROLOGY - CONSULT TO PHYSICAL THERAPY 4. Frequent falls - ICD9: V15.88, ICD10: R29.6 As above - CONSULT TO NEUROLOGY - CONSULT TO PHYSICAL THERAPY Prescription instructions reviewed with patient as applicable. Potential red flag symptoms discussed with the patient. Reviewed appropriate action plan to take if red flag symptoms occur. Patient agreeable to treatment plan. Annette Pinto APRN.CNP documented in this encounterSt. Mary'[facility] [facility]06-[facility]-20[facility] Miscellaneous Notes* Telephone Encounter - Margaret Abebe LPN - 03/04/2022 12:13 PM EDT Pt reports she has been having problems with her legs. States she has difficulty walking, states she can not walk a straight line & has had 2 falls recently, fell a week ago & again this am. Pt states she wants checked for Parkinsons. Pt requesting appt with either pcp or Annette Older, 1st appt avial is with Annette on 03/11/22. Appt booked. Margaret Abebe LPN documented in this encounterSt. Mary'[facility] [facility]05-09-2022 Miscellaneous Notes* Telephone Encounter - Eva Murrell Ma - 02/02/2022 11:29 AM EDT Order faxed * Telephone Encounter - Yenifer Gonsalez MD - 01/31/2022 10:04 PM EDT Patient's request for medication is as follows: Signed Prescriptions Disp Refills CPAP 1 Each 0 Sig: Initiate CPAP @ 12 cm of water with humidification. Mask (per patient preference) optional chin strap (if indicated) , filters, tubing, humidifier and lifetime supplies. Authorizing Provider: YENIFER GONSALEZ Prescription(s) printed as above. Please process accordingly. * Telephone Encounter - Teresa Rollins LPN - 01/30/2022 3:28 PM EDT Fax rx to [facility]. * Telephone Encounter - Yuliya Aguilera LPN - 01/30/2022 3:23 PM EDT Patient calling back she had checked with Dr Faheem miguel and her setting was at 12 cm. * Telephone Encounter - Teresa Rollins LPN - 01/30/2022 12:26 PM EDT mian sent info. The last order they have is from 2017. Pressure is set at 12 Message left for p tto return call to a nurse to verify this, if she knows. * Telephone Encounter - Teresa Rollins LPN - 01/30/2022 9:20 AM EDT In review last supply order was from 2017 and [facility]. Called them and requested they send to pcp if they have this information. * Telephone Encounter - Teresa Rollins LPN - 01/29/2022 4:33 PM EDT JIM has rec'd all. They are asking cor rx with pressure orders. Fax to [facility]. documented in this encounterSt. Mary'[facility] [facility]05-[facility]-2022 Miscellaneous Notes* Telephone Encounter - Teresa Rollins LPN - 01/29/2022 2:27 PM EDT Faxed to [facility], demographics,copy of insurance card,last sleep study from 2010. * Telephone Encounter - Jessica Scott [facility] - 01/29/2022 1:18 PM EDT Elizabeth Rodrigez is calling Annette Pinto APRN.CNP today to request Orders (replace her CPAP machine )her mahine was broken into a pieces as she dropped it and it is unusable. She needs a new one please sendnew script for this machine to her DME which is [facility] not that she needs a prior authorization, sheneeds a new script for the machine. Patient has been identified by name and birthdate. Duration of symptoms: N/A Person calling: self Call patient at: at home [phone] (home) [phone] (cell) Was an appointment scheduled: No Closing statement: Results or non-symptom based questions: Thank you for calling [facility], your call will be returned within the next business day. Jessica Scott Pss documented in this encounterSt. Mary'[facility] [facility]05-04-2022 Miscellaneous Notes* Telephone Encounter - Teresa Rollins LPN - 01/28/2022 3:19 PM EDT The PA would be completed by her [employer] company for them to get it covered. Message left to pt with info. * Telephone Encounter - Dagmar Dupree Pss - 01/28/2022 2:30 PM EDT Patient calling in today regarding getting a prior authorization done for a CPAP machine; she was out of town over the weekend and dropped her CPAP and broke into pieces. [employer] is asking that we do aprior authorization for this. If you have any questions please contact patient [phone]. Dagmar Dupree Pss documented in this encounterSt. Mary'[facility] [facility]04-27-2022 Miscellaneous Notes* Telephone Encounter - Ashwini Benitez RN - 01/21/2022 2:36 PM EDT Patient returned call and given provider's message below and patient verbalized understanding. Phone number to schedule diagnostic mammogram provided. Patient states she will schedule her US of breast after she returns from her vacation. Lennie Benitez RN * Telephone Encounter - Michael Guardado Ma - 01/21/2022 9:23 AM EDT Left message to call office. 01/21/2022 9:23 AM Please advise patient to call [phone] for scheduling. * Telephone Encounter - Annette Pinto APRN.CNP - 01/21/2022 8:29 AM EDT Screening mammogram completed, radiologist recommending additional views with diagnostic mammogram. Annette Pinto APRN.CNP documented in this encounterSt. Mary'[facility] [facility]04-26-2022 Miscellaneous Notes* Telephone Encounter - Dolores Proctor - 01/20/2022 4:33 PM EDT Patient has been identified by name and date of : Yes Pending Prescriptions Disp Refills VERAPAMIL 80 MG TABLET 180 tablet 3 Sig: Take one pill daily; take another pill daily as needed for heart racing MARIA DOLORES: No RX INSTRUCTIONS: patient completely out last 2 days Patient aware RX will be sent to pharmacy. No need to notify patient. Dolores Ballesteros Pss documented in this encounterSt. Mary'[facility] [facility]04-26-2022 Miscellaneous Notes* Telephone Encounter - Teresa Rollins LPN - 01/20/2022 4:24 PM EDT Appt with pcp arranged for 08/28/22. * Telephone Encounter - Nina Huff - 01/17/2022 3:09 PM EDT 1st attempt to contact pt to schedule. LM for pt to return call. She is scheduled with Annette Pinto on06/24/22. Can schedule next available with Dr. Gonsalez if that is soon enough, which would be in 08/2022. * Telephone Encounter - Michael Guardado Ma - 01/16/2022 1:45 PM EDT Please contact to reschedule follow up to PCP. * Telephone Encounter - Yenifer Gonsalez MD - 01/14/2022 8:20 PM EDT Make sure has follow up scheduled with me [facility] * Telephone Encounter - Michael Guardado Ma - 01/14/2022 2:59 PM EDT SVEN: 12/22/2021 Last refill: 05/12/2021 QTY: 60 Refills: 5 Patient's request for medication is as follows: Pending Prescriptions Disp Refills METFORMIN ER 500 MG TABLET,EXTENDED RELEASE 24 HR 180 tablet 3 Sig: Take 1 tablet by mouth twice daily before meals. or as directed MARIA DOLORES: No Please approve the above prescription(s) to electronically send to pharmacy. Michael Guardado Ma documented in this encounterSt. Mary'[facility] [facility]04-26-2022 Miscellaneous Notes* Letter - Mammography Coordinator - 01/20/2022 1:06 PM EDT January 20, 2022 PID: [id number] Elizabeth Rodrigez [address] [place] [address] Dear Ms. Rodrigez, Your recent breast imaging exam on 01/20/2022 showed a possible finding that requires additional imaging studies for a complete evaluation. Most such findings are probably benign (not cancer). If you have a healthcare provider who ordered/prescribed your screening mammogram: Please call [phone] or [phone]: [phone] to schedule an appointment for your additional imaging (if youhave not already done so). If you DO NOT have a healthcare provider (ie you did not have an order/prescription for your screening mammogram): Please call to schedule an appointment for your additional imaging (if you have not already done so). You must have an order/prescription from your physician when calling to schedule your appointment. If your order/prescription is not electronic, you must bring the hard copy with you on the day of your exam to avoid delays. Your imaging studies and reports are kept on file at [facility] as part of your permanent medical record, and are available for your continuing care. Thank you for allowing us to help in meeting your health care needs. Sincerely, Dr. Bean Interpreting Radiologist [facility] (Additional imaging) documented in this encounterSt. Mary'S [facility] [facility]04-26-2022 Instructions* Patient Instructions* Annette Pinto APRN.CNP - 01/20/2022 9:32 AM EDT BONE MINERAL DENSITY PATIENT INSTRUCTIONS Bone mineral density testing measures the amount of calcium in certain parts of your bones. This information determines how strong your bones are. The test is used to detect osteoporosis, a disease in which the bone's mineral content and density are low, increasing a person's risk of fractures. Thelumbar spine (lower back) and the hip are the skeletal sites usually examined. For the test, remember that: 1. You cannot take this test if you are . 2. Eat a normal diet on the day of the test. 3. Take your medications as you normally would. 4. DO NOT take calcium supplements (such as Tums) for 24 hours before the test. 5. On the day of the test, leave valuables (jewelry or credit cards) at home. 6. The test should be performed prior to oral, rectal or IV contrast studies, or at least 7 days after any of these studies. For the test, you may be asked to wear a hospital gown. You will lie on your back, on a padded table, in a comfortable position. Generally, you can resume your usual activities immediately. documented in this encounterSt. Mary'[facility] [facility]04-26-2022 Miscellaneous Notes* Telephone Encounter - Dina Alston RN - 01/20/2022 9:30 AM EDT [facility] needs Nasima Bryant, to please place new order for bone density. They had to move the appt time and it automatically cancels the order (b/c patient was already checked in). Next appt today at 10:30 am. documented in this encounterSt. Mary'[facility]04-05-2022 Miscellaneous Notes* Telephone Encounter - Katrin Baptiste Pharm-T - 12/30/2021 11:32 AM EDT Elizabeth Rodrigez is identified through a medication adherence outreach initiative based on pharmacy claims data from [employer] (insurer). Patient is reviewed 12/30/21 due to medication adherence concerns with Metformin medication(s) for Diabetes. Per data report last fill date and quantity: 10/16/2021 for 30 days Per reconcile dispense: 10/16/2021 for 30 days Per call to pharmacy: 10/16/2021 for 30 days Contacted patient: Left Message for patient Katrin Baptiste Pharm-T * Telephone Encounter - Katrin Baptiste Pharm-T - 12/26/2021 11:06 AM EDT Elizabeth Rodrigez is identified through a medication adherence outreach initiative based on pharmacy claims data from [employer] (insurer). Patient is reviewed 12/26/21 due to medication adherence concerns with Metformin medication(s) for Diabetes. Per data report last fill date and quantity: 10/16/2021 for 30 days Per reconcile dispense: 10/16/2021 for 30 days Per call to pharmacy: 10/16/2021 for 30 days Contacted patient: Sent MyChart message to patient Patient is identified by Name and . Discussion on adherence consisted of - Reminded patient to refill medication Katrin Baptiste Pharm-T documented in this encounterSt. Mary'[facility]03-28-2022 Instructions* Patient Instructions* Annette Pinto APRN.CNP - 12/22/2021 2:39 PM EDT BONE MINERAL DENSITY PATIENT INSTRUCTIONS Bone mineral density testing measures the amount of calcium in certain parts of your bones. This information determines how strong your bones are. The test is used to detect osteoporosis, a disease in which the bone's mineral content and density are low, increasing a person's risk of fractures. Thelumbar spine (lower back) and the hip are the skeletal sites usually examined. For the test, remember that: 1. You cannot take this test if you are . 2. Eat a normal diet on the day of the test. 3. Take your medications as you normally would. 4. DO NOT take calcium supplements (such as Tums) for 24 hours before the test. 5. On the day of the test, leave valuables (jewelry or credit cards) at home. 6. The test should be performed prior to oral, rectal or IV contrast studies, or at least 7 days after any of these studies. For the test, you may be asked to wear a hospital gown. You will lie on your back, on a padded table, in a comfortable position. Generally, you can resume your usual activities immediately. documented in this encounterSt[facility] [facility] History of Present illness Narrative* Annette Pinto APRN.CNP - 12/22/2021 2:25 PM EDT CC: Patient presents with: F/U 6 months HPI Elizabeth Rodrigez is a 76 year old female who presents today for above. Excessive sweating with minimal exertion for the past two years. Once she starts sweating profuselyshe becomes very irritable. Fatigue- ongoing. Wondering if this is normal aging. Bilateral lower leg pain- for months. Feels like legs are bowing outwards and the bones in her legshurt, like they are going to snap any minute. Nothing makes pain worse or better. History of bilateral knee osteoarthritis, wondering if this could be causing her pain. ROSE/depression- taking Paxil and Gabapentin, symptoms are manageable except for irritability and insomnia. She would like a refill on Tranxene which is very effective. She has an appointment with psychologist to discuss issues as well. Diabetes- does not check blood sugars. Taking medications as prescribed, no side effects. REVIEW OF SYSTEMS General: reports intentional weight loss. no fevers, no chills and no night sweats Respiratory: no cough, no wheezing, no shortness of breath, no hemoptysis Cardiovascular: no chest pain, no chest pressure, no palpitations and no swelling PAST MEDICAL HISTORY Diagnosis Date Allergic rhinitis, cause unspecified Allergic rhinitis Carpal tunnel syndrome Depressive disorder, not elsewhere classified Disorder of bone and cartilage, unspecified Dysmetabolic syndrome X Dyspepsia and other specified disorders of function of stomach Dyspepsia Generalized anxiety disorder Anxiety, Generalized Generalized osteoarthrosis, involving hand Hemorrhage of gastrointestinal tract, unspecified Lichen sclerosus saw Dr. Jarvis Migraine without aura Obstructive sleep apnea (adult) (pediatric) uses C-PAP Other specified cardiac dysrhythmias(427.89) Panic disorder without agoraphobia Pure hypercholesterolemia PAST SURGICAL HISTORY Procedure Laterality Date BIOPSY BREAST OPEN INCISIONAL Bilateral Bx of breast, incisional COLONOSCOPY FLX DX W/COLLJ SPEC WHEN PFRMD 03/24/06 SPLENECTOMY TOTAL SEPARATE PROCEDURE 05/2018 Splenectomy TOTAL ABDOMINAL HYSTERECT W/WO RMVL TUBE OVARY Hysterectomy, FIGUEROA ALLERGIES Epinephrine, Novocaine [Other], Penicillins, Percocet [Oxycodone- Acetaminophen], and Xylocaine [Lidocaine Hcl (Local Anesth.)] MEDICATIONS clorazepate (TRANXENE T) 7.5 mg tablet Take 7.5 mg by mouth twice daily. phenazopyridine (PYRIDIUM) 200 mg tablet Take 1 tablet by mouth three times daily as needed. albuterol HFA (PROVENTIL HFA, VENTOLIN HFA) 90 mcg/actuation inhaler INHALE 2 PUFFS BY MOUTH UP TO 4 TIMES DAILY NEEDED clobetasol (TEMOVATE) 0.05 % cream Apply 1 application to affected area once daily as needed. naproxen (NAPROSYN) 500 mg tablet Take 1 tablet by mouth twice daily as needed (for pain/inflammation). Take with food. acyclovir (ZOVIRAX) 400 mg tablet Take 1 tablet by mouth twice daily. gabapentin (NEURONTIN) 300 mg capsule Take 1 capsule by mouth three times daily. metFORMIN ER (GLUCOPHAGE XR) 500 mg 24 hr tablet Take 1 tablet by mouth twice daily before meals. or as directed PARoxetine (PAXIL) 20 mg tablet Take 1 tablet by mouth twice daily. rosuvastatin (CRESTOR) 5 mg tablet Take 1 tablet by mouth daily at bedtime. As directed verapamil (CALAN, ISOPTIN) 80 mg tablet Take one pill daily; take another pill daily as needed for heart racing fluticasone (FLONASE) 50 mcg/actuation nasal spray Use 2 Sprays in each nostril once daily. for sinus drainage and genstion pumpkin seed extract-soy germ (AZO BLADDER CONTROL) 300 mg cap Take 1-3 capsules by mouth once daily. (usually just needs 1 capsule daily) COMPOUNDED PRESCRIPTION CPAP mask COMPOUNDED PRESCRIPTION CPAP mask--Mirage FX with formal mask fitting benzonatate (TESSALON PERLE) 100 mg capsule Take 1-2 capsules tid prn, no more than 6 in 24 hours. ciprofloxacin-dexAMETHasone (CIPRODEX) 0.3-0.1 % otic suspension Use 4 Drops in the right ear twicedaily. FAMILY HISTORY Problem Relation Age of Onset Alcohol/Drug Father Heart disease Father Colon Cancer Paternal Grandfather Colon Cancer Maternal Grandmother Arthritis Sister other (mvp) Sister other (palpitations) Mother Alcohol/Drug Brother Mental illness Brother Alcohol/Drug Sister Mental illness Sister Heart disease Sister No Known Problems Sister other (Hep C) Sister No Known Problems Sister Mental illness Brother Social History Tobacco Use Smoking status: Never Smoker Smokeless tobacco: Never Used Substance Use Topics Alcohol use: Yes Comment: She drinks approximately 1 sis per month Drug use: No PHYSICAL EXAM BP 146/82 Pulse 84 Resp 18 Wt 80.7 kg (178 lb) BMI 33.41 kg/m General Appearance: well appearing, in no acute distress, alert Lungs: Lungs clear to auscultation. No wheezing, rhonchi, rales. Heart: RRR without murmur, gallop, or rubs. No ectopy Musculoskeletal: lower legs- no tenderness except for bilateral knees. No swelling, deformities, skin discoloration. Lower Extremities: pedal pulses 2+. Skin pink, warm and dry. Cap refill < 2 seconds. No edema. Health maintenance reviewed with patient: COLORECTAL CANCER SCREENING due on 03/24/2016 COVID-19 VACCINE(3 - Booster for Moderna series) due on 07/25/2021 ADVANCE DIRECTIVE DISCUSSION Never done DILATED RETINAL EXAM due on 10/15/2021 HBA1C due on 12/07/2021 URINE ALBUMIN:CREATININE RATIO due on 12/04/2021 MAMMOGRAM due on 01/02/2022 INFLUENZA(1) due on 03/26/2022 DTAP,TDAP,TD(1 - Tdap) due on 06/10/2022 SHINGRIX VACCINE(1 of 2) due on 06/10/2022 LDL CHOLESTEROL due on 06/09/2022 DIABETIC FOOT EXAM due on 06/10/2022 ANNUAL PCP TEAM CHRONIC DISEASE VISIT due on 12/22/2022 SPIROMETRY Completed PNEUMOVAX AGE 65 AND OVER WITH 5YR LOOKBACK Completed MENINGOCOCCAL CONJUGATE Aged Out BONE DENSITY Discontinued HEPATITIS C SCREENING Discontinued DATA REVIEWED: Most recent labs ASSESSMENT/PLAN: 1. Generalized anxiety disorder - ICD9: 300.02, ICD10: F41.1 (primary diagnosis) - Continue with Paxil and Gabapentin. Tranxene refilled. - Follow-up with psychologist as scheduled - Reviewed concept of neurochemical imbalance wth depression/anxiety, treatment options and benefits of counseling in combination with medication. Also reviewed benefits of sleep hygeine, diet and exercise - Instructed patient to contact office or [id number] after-hours promptly should condition worsen or any new symptoms appear. - CLORAZEPATE DIPOTASSIUM 7.5 MG TABLET PDMP website checked and validated. All prescriptions have been APPROPRIATELY filled. No suspiciousactivity was identified. 12/22/2021 by Annette Pinto APRN.BEER COOLER 2. Excessive sweating - ICD9: 780.8, ICD10: R61 Possible side effect of Paxil Check TSH BLD 3. Bilateral leg pain - ICD9: 729.5, ICD10: M79.604, M79.605 Secondary to knee osteoarthritis? No symptoms or exam findings concerning for PAD. Follow-up with orthopedics 4. Controlled type 2 diabetes mellitus without complication, without long-term current use of insulin (HCC) - ICD9: 250.00, ICD10: E11.9 - Continue current medications - ALBUMIN/CREAT RATIO RND UR - COMP METABOLIC PANEL - CBC - HGB A1C 5. Pure hypercholesterolemia - ICD9: 272.0, ICD10: E78.00 Control to be determined upon lab results Continue with current medication - LIPID PANEL BASIC 6. Lichen sclerosus - ICD9: 701.0, ICD10: L90.0 - CLOBETASOL 0.05 % TOPICAL CREAM refilled 7. Encounter for screening mammogram for breast cancer - ICD9: V76.12, ICD10: Z12.31 - OSMIN SCREENING 8. Colon cancer screening - ICD9: V76.51, ICD10: Z12.11 - COLOGUARD 9. Encounter for screening for osteoporosis - ICD9: V82.81, ICD10: Z13.820 - DXA-AXIAL SKELETON 10. Asymptomatic postmenopausal status - ICD9: V49.81, ICD10: Z78.0 - DXA-AXIAL SKELETON 11. Vitamin D deficiency - ICD9: 268.9, ICD10: E55.9 - VITAMIN D 25 HYDROXY 12. Obesity, Class I, BMI 30-34.9 - ICD9: 278.00, ICD10: E66.9 Weight decreasing Prescription instructions reviewed with patient as applicable. Potential red flag symptoms discussed with the patient. Reviewed appropriate action plan to take if red flag symptoms occur. Patient agreeable to treatment plan. Annette Pinto APRN.CNP documented in this encounterSt. [facility] [place] [facility] History of Present illness Narrative* Scarlet Gamboa (Luke)Luke - 12/27/2020 4:20 PM EDT Radiology Service Progress Note PATIENT NAME: Elizabeth Rodrigez DATE OF SERVICE: December 27, 2020 TIME: 4:17 PM PATIENT IDENTITY VERIFICATION COMPLETED USING TWO (2) IDENTIFIERS: Name and Date of confirmedby patient verbally. FALL SCREENING: Has the patient had 2 falls in the last year or 1 fall with injury or currently using an Ambulatory Assistive Device (Walker, Cane, Wheelchair, Crutches, etc.)? No PATIENT GENDER DATA: Female. status: : No status: NO. PATIENT RELEVANT IMPLANT DATA REVIEWED: Not Applicable RADIOLOGY DEPARTMENT: General X-ray: Exam(s) Completed: Chest X-Ray PERIPHERAL IV DATA: Not applicable SIGNED BY: Luke Morris December 27, 2020 4:17 PM documented in this encounterSt. [facility] [place] [facility] History of Present illness Narrative* Kong Vasquez (Rt)Luke - 10/23/2020 2:50 PM EST Radiology Service Progress Note PATIENT NAME: Elizabeth Rodrigez DATE OF SERVICE: October 23, 2020 TIME: 3:04 PM PATIENT IDENTITY VERIFICATION COMPLETED USING TWO (2) IDENTIFIERS: Name and Date of confirmedby patient verbally. FALL SCREENING: Has the patient had 2 falls in the last year or 1 fall with injury or currently using an Ambulatory Assistive Device (Walker, Cane, Wheelchair, Crutches, etc.)? No PATIENT GENDER DATA: Female. status: : No status: NO. PATIENT RELEVANT IMPLANT DATA REVIEWED: Not Applicable RADIOLOGY DEPARTMENT: General X-ray: Exam(s) Completed: Chest X-Ray PERIPHERAL IV DATA: Not applicable SIGNED BY: RT Kobe October 23, 2020 3:04 PM documented in this encounterSt. [facility] [place] [facility] History of Past illness Narrative* Problem Noted Date Resolved Date Blood in stool 03/02/2006 05/12/2006 Dyspepsia and other specifie d disorders of function of stomach 05/12/2006 Overview: Dyspepsia Hemorrhage of gastrointestinal tract, unspecifie d 05/12/2006 documented as of this encounter (statuses as of 12/22/2021) [facility] [facility] History of Past illness Narrative* Problem Noted Date Resolved Date Blood in stool 03/02/2006 05/12/2006 Dyspepsia and other specifie d disorders of function of stomach 05/12/2006 Overview: Dyspepsia Hemorrhage of gastrointestinal tract, unspecifie d 05/12/2006 documented as of this encounter (statuses as of 12/29/2021) [facility] [facility] of Past illness Narrative* Problem Noted Date Resolved Date Blood in stool 03/02/2006 05/12/2006 Dyspepsia and other specifie d disorders of function of stomach 05/12/2006 Overview: Dyspepsia Hemorrhage of gastrointestinal tract, unspecifie d 05/12/2006 documented as of this encounter (statuses as of 12/30/2021) [facility] [facility] of Past illness Narrative* Problem Noted Date Resolved Date Blood in stool 03/02/2006 05/12/2006 Dyspepsia and other specifie d disorders of function of stomach 05/12/2006 Overview: Dyspepsia Hemorrhage of gastrointestinal tract, unspecifie d 05/12/2006 documented as of this encounter (statuses as of 01/20/2022) [facility] [facility] of Past illness Narrative* Problem Noted Date Resolved Date Blood in stool 03/02/2006 05/12/2006 Dyspepsia and other specifie d disorders of function of stomach 05/12/2006 Overview: Dyspepsia Hemorrhage of gastrointestinal tract, unspecifie d 05/12/2006 documented as of this encounter (statuses as of 01/20/2022) [facility] [facility] of [facility] illness Narrative* Problem Noted Date Resolved Date Blood in stool 03/02/2006 05/12/2006 Dyspepsia and other specifie d disorders of function of stomach 05/12/2006 Overview: Dyspepsia Hemorrhage of gastrointestinal tract, unspecifie d 05/12/2006 documented as of this encounter (statuses as of 01/20/2022) [facility] [facility] of [facility] illness Narrative* Problem Noted Date Resolved Date Blood in stool 03/02/2006 05/12/2006 Dyspepsia and other specifie d disorders of function of stomach 05/12/2006 Overview: Dyspepsia Hemorrhage of gastrointestinal tract, unspecifie d 05/12/2006 documented as of this encounter (statuses as of 01/21/2022) [facility] [facility] of Past illness Narrative* Problem Noted Date Resolved Date Blood in stool 03/02/2006 05/12/2006 Dyspepsia and other specifie d disorders of function of stomach 05/12/2006 Overview: Dyspepsia Hemorrhage of gastrointestinal tract, unspecifie d 05/12/2006 documented as of this encounter (statuses as of 01/22/2022) [facility] [facility] of [facility] illness Narrative* Problem Noted Date Resolved Date Blood in stool 03/02/2006 05/12/2006 Dyspepsia and other specifie d disorders of function of stomach 05/12/2006 Overview: Dyspepsia Hemorrhage of gastrointestinal tract, unspecifie d 05/12/2006 documented as of this encounter (statuses as of 01/23/2022) [address]06-2006 History of Past illness Narrative* Problem Noted Date Resolved Date Blood in stool 03/02/2006 05/12/2006 Dyspepsia and other specifie d disorders of function of stomach 05/12/2006 Overview: Dyspepsia Hemorrhage of gastrointestinal tract, unspecifie d 05/12/2006 documented as of this encounter (statuses as of 01/28/2022) [address]06-2006 History of Past illness Narrative* Problem Noted Date Resolved Date Blood in stool 03/02/2006 05/12/2006 Dyspepsia and other specifie d disorders of function of stomach 05/12/2006 Overview: Dyspepsia Hemorrhage of gastrointestinal tract, unspecifie d 05/12/2006 documented as of this encounter (statuses as of 01/29/2022) [facility] [facility] of [facility] illness Narrative* Problem Noted Date Resolved Date Blood in stool 03/02/2006 05/12/2006 Dyspepsia and other specifie d disorders of function of stomach 05/12/2006 Overview: Dyspepsia Hemorrhage of gastrointestinal tract, unspecifie d 05/12/2006 documented as of this encounter (statuses as of 02/02/2022) [address]06-2006 History of Past illness Narrative* Problem Noted Date Resolved Date Blood in stool 03/02/2006 05/12/2006 Dyspepsia and other specifie d disorders of function of stomach 05/12/2006 Overview: Dyspepsia Hemorrhage of gastrointestinal tract, unspecifie d 05/12/2006 documented as of this encounter (statuses as of 03/11/2022) [facility] [facility] of [facility] Narrative* Problem Noted Date Resolved Date Blood in stool 03/02/2006 05/12/2006 Dyspepsia and other specifie d disorders of function of stomach 05/12/2006 Overview: Dyspepsia Hemorrhage of gastrointestinal tract, unspecifie d 05/12/2006 documented as of this encounter (statuses as of 03/12/2022) [facility] [facility] of [facility] illness Narrative* Problem Noted Date Resolved Date Blood in stool 03/02/2006 05/12/2006 Dyspepsia and other specifie d disorders of function of stomach 05/12/2006 Overview: Dyspepsia Hemorrhage of gastrointestinal tract, unspecifie d 05/12/2006 documented as of this encounter (statuses as of 03/12/2022) [facility] [facility] of [facility] Narrative* Problem Noted Date Resolved Date Blood in stool 03/02/2006 05/12/2006 Dyspepsia and other specifie d disorders of function of stomach 05/12/2006 Overview: Dyspepsia Hemorrhage of gastrointestinal tract, unspecifie d 05/12/2006 documented as of this encounter (statuses as of 04/27/2022) [facility] [facility] of [facility] Narrative* Problem Noted Date Resolved Date Blood in stool 03/02/2006 05/12/2006 Dyspepsia and other specifie d disorders of function of stomach 05/12/2006 Overview: Dyspepsia Hemorrhage of gastrointestinal tract, unspecifie d 05/12/2006 documented as of this encounter (statuses as of 05/01/2022) [facility] [facility] Narrative* Problem Noted Date Resolved Date Blood in stool 03/02/2006 05/12/2006 Dyspepsia and other specifie d disorders of function of stomach 05/12/2006 Overview: Dyspepsia Hemorrhage of gastrointestinal tract, unspecifie d 05/12/2006 documented as of this encounter (statuses as of 05/05/2022) [facility] [facility] Narrative* Problem Noted Date Resolved Date Blood in stool 03/02/2006 05/12/2006 Dyspepsia and other specifie d disorders of function of stomach 05/12/2006 Overview: Dyspepsia Hemorrhage of gastrointestinal tract, unspecifie d 05/12/2006 documented as of this encounter (statuses as of 05/14/2022) [facility] [facility] Narrative* Problem Noted Date Resolved Date Blood in stool 03/02/2006 05/12/2006 Dyspepsia and other specifie d disorders of function of stomach 05/12/2006 Overview: Dyspepsia Hemorrhage of gastrointestinal tract, unspecifie d 05/12/2006 documented as of this encounter (statuses as of 05/15/2022) [facility] [facility] Narrative* Problem Noted Date Resolved Date Blood in stool 03/02/2006 05/12/2006 Dyspepsia and other specifie d disorders of function of stomach 05/12/2006 Overview: Dyspepsia Hemorrhage of gastrointestinal tract, unspecifie d 05/12/2006 documented as of this encounter (statuses as of 05/18/2022) [facility] [facility] Narrative* Problem Noted Date Resolved Date Blood in stool 03/02/2006 05/12/2006 Dyspepsia and other specifie d disorders of function of stomach 05/12/2006 Overview: Dyspepsia Hemorrhage of gastrointestinal tract, unspecifie d 05/12/2006 documented as of this encounter (statuses as of 05/18/2022) [facility] [facility] Narrative* Problem Noted Date Resolved Date Blood in stool 03/02/2006 05/12/2006 Dyspepsia and other specifie d disorders of function of stomach 05/12/2006 Overview: Dyspepsia Hemorrhage of gastrointestinal tract, unspecifie d 05/12/2006 documented as of this encounter (statuses as of 06/12/2022) [facility] [facility] Narrative* Problem Noted Date Resolved Date Blood in stool 03/02/2006 05/12/2006 Dyspepsia and other specifie d disorders of function of stomach 05/12/2006 Overview: Dyspepsia Hemorrhage of gastrointestinal tract, unspecifie d 05/12/2006 documented as of this encounter (statuses as of 06/18/2022) [facility] [facility] Narrative* Problem Noted Date Resolved Date Blood in stool 03/02/2006 05/12/2006 Dyspepsia and other specifie d disorders of function of stomach 05/12/2006 Overview: Dyspepsia Hemorrhage of gastrointestinal tract, unspecifie d 05/12/2006 documented as of this encounter (statuses as of 06/24/2022) [facility] [facility] Narrative* Problem Noted Date Resolved Date Blood in stool 03/02/2006 05/12/2006 Dyspepsia and other specifie d disorders of function of stomach 05/12/2006 Overview: Dyspepsia Hemorrhage of gastrointestinal tract, unspecifie d 05/12/2006 documented as of this encounter (statuses as of 06/26/2022) [facility] Narrative* Problem Noted Date Resolved Date Blood in stool 03/02/2006 05/12/2006 Dyspepsia and other specifie d disorders of function of stomach 05/12/2006 Overview: Dyspepsia Hemorrhage of gastrointestinal tract, unspecifie d 05/12/2006 documented as of this encounter (statuses as of 07/01/2022) [facility] Narrative* Problem Noted Date Resolved Date Blood in stool 03/02/2006 05/12/2006 Dyspepsia and other specifie d disorders of function of stomach 05/12/2006 Overview: Dyspepsia Hemorrhage of gastrointestinal tract, unspecifie d 05/12/2006 documented as of this encounter (statuses as of 07/15/2022) [facility] Narrative* Problem Noted Date Resolved Date Blood in stool 03/02/2006 05/12/2006 Dyspepsia and other specifie d disorders of function of stomach 05/12/2006 Overview: Dyspepsia Hemorrhage of gastrointestinal tract, unspecifie d 05/12/2006 documented as of this encounter (statuses as of 07/16/2022) [facility] [facility] Narrative* Problem Noted Date Resolved Date Blood in stool 03/02/2006 05/12/2006 Dyspepsia and other specifie d disorders of function of stomach 05/12/2006 Overview: Dyspepsia Hemorrhage of gastrointestinal tract, unspecifie d 05/12/2006 documented as of this encounter (statuses as of 07/17/2022) [facility] Narrative* Problem Noted Date Resolved Date Blood in stool 03/02/2006 05/12/2006 Dyspepsia and other specifie d disorders of function of stomach 05/12/2006 Overview: Dyspepsia Hemorrhage of gastrointestinal tract, unspecifie d 05/12/2006 documented as of this encounter (statuses as of 07/24/2022) [facility] Narrative* Problem Noted Date Resolved Date Blood in stool 03/02/2006 05/12/2006 Dyspepsia and other specifie d disorders of function of stomach 05/12/2006 Overview: Dyspepsia Hemorrhage of gastrointestinal tract, unspecifie d 05/12/2006 documented as of this encounter (statuses as of 08/29/2022) [facility] Narrative* Problem Noted Date Resolved Date Blood in stool 03/02/2006 05/12/2006 Dyspepsia and other specifie d disorders of function of stomach 05/12/2006 Overview: Dyspepsia Hemorrhage of gastrointestinal tract, unspecifie d 05/12/2006 documented as of this encounter (statuses as of 09/04/2022) [facility] Narrative* Problem Noted Date Resolved Date Blood in stool 03/02/2006 05/12/2006 Dyspepsia and other specifie d disorders of function of stomach 05/12/2006 Overview: Dyspepsia Hemorrhage of gastrointestinal tract, unspecifie d 05/12/2006 documented as of this encounter (statuses as of 09/27/2022) [facility] Narrative* Problem Noted Date Resolved Date Blood in stool 03/02/2006 05/12/2006 Dyspepsia and other specifie d disorders of function of stomach 05/12/2006 Overview: Dyspepsia Hemorrhage of gastrointestinal tract, unspecifie d 05/12/2006 documented as of this encounter (statuses as of 10/01/2022) [facility] Narrative* Problem Noted Date Resolved Date Blood in stool 03/02/2006 05/12/2006 Dyspepsia and other specifie d disorders of function of stomach 05/12/2006 Overview: Dyspepsia Hemorrhage of gastrointestinal tract, unspecifie d 05/12/2006 documented as of this encounter (statuses as of 10/03/2022) [facility] Narrative* Problem Noted Date Resolved Date Blood in stool 03/02/2006 05/12/2006 Dyspepsia and other specifie d disorders of function of stomach 05/12/2006 Overview: Dyspepsia Hemorrhage of gastrointestinal tract, unspecifie d 05/12/2006 documented as of this encounter (statuses as of 10/05/2022) [facility] Narr[facility]* Problem Noted Date Resolved Date Blood in stool 03/02/2006 05/12/2006 Dyspepsia and other specifie d disorders of function of stomach 05/12/2006 Overview: Dyspepsia Hemorrhage of gastrointestinal tract, unspecifie d 05/12/2006 documented as of this encounter (statuses as of 10/06/2022) [facility] History of Past illness Narrative* Problem Noted Date Resolved Date Blood in stool 03/02/2006 05/12/2006 Dyspepsia and other specifie d disorders of function of stomach 05/12/2006 Overview: Dyspepsia Hemorrhage of gastrointestinal tract, unspecifie d 05/12/2006 documented as of this encounter (statuses as of 11/04/2022) [facility] History of Past illness Narrative* Problem Noted Date Resolved Date Blood in stool 03/02/2006 05/12/2006 Dyspepsia and other specifie d disorders of function of stomach 05/12/2006 Overview: Dyspepsia Hemorrhage of gastrointestinal tract, unspecifie d 05/12/2006 documented as of this encounter (statuses as of 11/07/2022) [facility] History of Past illness Narrative* Problem Noted Date Resolved Date Blood in stool 03/02/2006 05/12/2006 Dyspepsia and other specifie d disorders of function of stomach 05/12/2006 Overview: Dyspepsia Hemorrhage of gastrointestinal tract, unspecifie d 05/12/2006 documented as of this encounter (statuses as of 11/20/2022) [facility] History of Past illness Narrative* Problem Noted Date Resolved Date Blood in stool 03/02/2006 05/12/2006 Dyspepsia and other specifie d disorders of function of stomach 05/12/2006 Overview: Dyspepsia Hemorrhage of gastrointestinal tract, unspecifie d 05/12/2006 documented as of this encounter (statuses as of 11/20/2022) [facility] History of Past illness Narrative* Problem Noted Date Resolved Date Blood in stool 03/02/2006 05/12/2006 Dyspepsia and other specifie d disorders of function of stomach 05/12/2006 Overview: Dyspepsia Hemorrhage of gastrointestinal tract, unspecifie d 05/12/2006 documented as of this encounter (statuses as of 12/16/2022) [facility] History of Past illness Narrative* Problem Noted Date Resolved Date Blood in stool 03/02/2006 05/12/2006 Dyspepsia and other specifie d disorders of function of stomach 05/12/2006 Overview: Dyspepsia Hemorrhage of gastrointestinal tract, unspecifie d 05/12/2006 documented as of this encounter (statuses as of 12/22/2022) [facility] History of Past illness Narrative* Problem Noted Date Resolved Date Blood in stool 03/02/2006 05/12/2006 Dyspepsia and other specifie d disorders of function of stomach 05/12/2006 Overview: Dyspepsia Hemorrhage of gastrointestinal tract, unspecifie d 05/12/2006 documented as of this encounter (statuses as of 12/23/2022) [facility] History of Past illness Narrative* Problem Noted Date Resolved Date Blood in stool 03/02/2006 05/12/2006 Dyspepsia and other specifie d disorders of function of stomach 05/12/2006 Overview: Dyspepsia Hemorrhage of gastrointestinal tract, unspecifie d 05/12/2006 documented as of this encounter (statuses as of 12/23/2022) [facility] History of Past illness Narrative* Problem Noted Date Resolved Date Blood in stool 03/02/2006 05/12/2006 Dyspepsia and other specifie d disorders of function of stomach 05/12/2006 Overview: Dyspepsia Hemorrhage of gastrointestinal tract, unspecifie d 05/12/2006 documented as of this encounter (statuses as of 12/24/2022) [facility] History of Past illness Narrative* Problem Noted Date Resolved Date Blood in stool 03/02/2006 05/12/2006 Dyspepsia and other specifie d disorders of function of stomach 05/12/2006 Overview: Dyspepsia Hemorrhage of gastrointestinal tract, unspecifie d 05/12/2006 documented as of this encounter (statuses as of 12/25/2022) [facility] Author Geeta Avila [facility] Note Date/Time January 23, 2025 3:1 0pm [facility] Medical Records Department [address] [place] [address] Counseling Note - Pharmacy 01/23/25 1509 MR#: [id number] Acct: [id number] Name: ELIZABETH RODRIGEZ Rep #:[id number] : 1945 79 From: Geeta Avila PCP: Dr. Yenifer Gonsalez MD Status:JARED M JASMIN Y Location: [place] [address] Pharmacy [place] Med Reconciliation Pharmacy Service has performed discharge medication reconciliation for this patient. The patient's discharge medication list was reviewed for discrepancies and discrepancies were resolved. Medications at Discharge Home Medications paroxetine HCl 20 mg tablet (Paxil) 40 mg PO DAILY DEPRESSION 04/03/16 verapamil 80 mg tablet 80 mg PO BID HEART 04/03/16 gabapentin 400 mg capsule 400 mg PO TID nerve pain 10/29/20 fluticasone propionate 50 mcg/actuation nasal spray,suspension (Flonase Allergy Relief) 1 spray intranasal DAILY 09/09/21 apixaban 5 mg tablet (Eliquis) 5 mg PO BID 30 days #60 tabs 12/19/22 biotin 1 mg capsule 1 mg PO DAILY 01/22/25 cholecalciferol (vitamin D3) 50 mcg (2,000 unit) tablet (Thera-D) 50 mcg PO DAILY 01/22/25 magnesium 250 mg tablet 250 mg PO DAILY 01/22/25 meclizine 25 mg tablet 25 mg PO 4X/DAY PRN Dizziness 01/22/25 mecobalamin (vitamin B12) 1,000 mcg lozenges 1,000 mcg PO DAILY 01/22/25 metformin 500 mg tablet,extended release 24 hr 500 mg PO BID 01/22/25 multivitamin (Multiple Vitamins tablet) 1 tab PO DAILY 01/22/25 paroxetine HCl 20 mg tablet 10 mg PO QHS 01/22/25 rosuvastatin 10 mg tablet 10 mg PO DAILY 01/22/25 01/23/25 [id number] <Electronically signed by Geeta Avila> Date _ Geeta Luna Signature (if applicable): Date CC: ~ Signed [facility] Work Phone: Discharge summary Author Dr. Roth [facility] December 19, 2022 10:21am Note Date/Time December 19, 2022 10: 19am [facility] Medical Records Department [address] [place] [address] Instructions for Home/Discharge Instructions 12/19/22 1018 MR#: [id number] Acct: [id number] Name: ELIZABETH RODRIGEZ Rep #:[id number] : 1945 77 From: Kyle Vee PCP: Dr. Yenifer Gonsalez MD Status:AD M IN Discharge Instructions Diet Discharge Diet: Low fat / Low cholesterol and 2000 mg Sodium Diet Activity Discharge Activity: Return to Normal Activity Weight Bearing Status: Weight bearing as tolerated Dressing / Incision Call your doctor if you observe: Fever of 101 or Higher, Coldness, Increased Pain, Numbness or Tingling, Change in Color, Inability to urinate, Inability to have a bowel movement, Shortness of breath, Dizziness, Fainting spells, Swellingin the ankles, Chest pain, Prolonged hiccupping, Increased palpitations (irregular heartbeat) and Calf discomfort Follow Up Care When: IN 2 WEEKS Test Results: Test results from this visit will be discussed in further detail at your follow- up appointment, if applicable. Discharge Plan Admission Admit Date/Time: 12/16/22 19:43 Primary Reason for Your Visit: Acute ischemic stroke. Attending Provider: Kyle Roth Primary Care Provider: Yenifer Gonsalez Consulting Providers: Alonso Tapia ; Shahbaz Elliott ; Keshawn Forte ; Darrion Pradhan ; Estrellita Wisdom NP ; Kitty Brooks ; [place] Discharge Orders/Prescriptions Prescriptions: New Eliquis 5 mg Tablet 5 mg PO BID 30 Days Qty: 60 2RF Continued Azo Cranberry 250 mg tablet,chewable 250 mg PO TID fluticasone propionate [Flonase Allergy Relief] 50 mcg/actuation spray,suspension 1 spray intranasal DAILY Rx Instructions: administer into each nostril clorazepate dipotassium [Tranxene T-Tab] 7.5 mg tablet 7.5 mg PO BID PRN (Reason: Anxiety) paroxetine HCl [Paxil] 20 MG tablet 20 mg PO BID verapamil 80 MG tablet 80 mg PO BID gabapentin 400 MG capsule 400 mg PO BID diazepam 5 mg tablet 5 mg PO Q8 PRN (Reason: Muscle Spasm) Qty: 12 0RF clobetasol 0.05 % cream 1 applic TOPICAL DAILY Rx Instructions: apply to vaginal area Changed rosuvastatin [Crestor] 5 mg tablet 10 mg PO DAILY Qty: 30 0RF Rx Instructions: takes every other day if joint pain occurs Held naproxen 500 mg tablet 500 mg PO BID Hold Instructions: Hold it while patient taking dual antiplatelet agent metformin 500 mg tablet 500 mg PO BID Hold Instructions: Hold for 1 day. Referrals / Follow Up: Calvin Nash MD [Med Staff - Active Staff] - Within 1 Week (Left quadrantopia, stroke ) Yenifer Gonsalez MD [Primary Care Provider] - Prosper Main MD [Non-Staff -Ordering Privileges] - Within 2 Weeks (for ischemic stroke) Disposition Disposition (needs filled in before D/C Order can be placed): Home Health Service 12/19/22 1021<Electronically signed by Kyle Roth MD>Kyle Roth MD CC: SUSAN Wisdom; Dr. Kitty Brooks MD; Dr. Alonso Tapia MD; Dr. Abner Shell MD; Dr. Shahbaz Elliott DO; Dr. Keshawn Forte MD; Dr. Yenifer Gonsalez MD; Dr. Darrion Pradhan MD ~ Signed [facility] Work Phone: Discharge summary Author Dr. Roth [facility] December 19, 2022 10:26am Note Date/Time December 19, 2022 10: 26am [facility] Medical Records Department [address] [place] [id number] Discharge Summary 12/19/22 1021 MR#: [id number] Acct: [id number] Name: ELIZABETH RODRIGEZ Rep #:[id number] : 1945 77 From: Kyle Vee PCP: Dr. Yenifer Gonsalez MD Status:AD M IN Location: [place] [address] Providers Date of Admission: 12/16/22 Date of Discharge: 12/19/22 Primary Care Physician: Dr. Yenifer Gonsalez MD Consultations 12/16/22 19:11 Consult: Bead Wire Insulator / Pulmonary Medicine Routine Consulting Provider: Pulmonary Medicine [facility] Reason for Consult: stroke for thrombolytic administration EMERGENT Consult: Yes MD Notified: Yes Date Notified: 12/16/22 Time Notified: 19:11 Method of Notification: Verbal Method of Consult:: In-Person Comments:: Consult may be done in ED or ICU 12/16/22 20:51 Consult: Bead Wire Insulator / Pulmonary Medicine Routine Consulting Provider: Pulmonary Medicine [facility] Reason for Consult: stroke for thrombolytic EMERGENT Consult: No MD Notified: Yes Date Notified: 12/16/22 Time Notified: 19:46 Method of Notification: Text 12/18/22 11:28 Consult: Cardiology Routine Consulting Provider: Abner Shell Reason for Consult: New onset afib, ischemic stroke/embolic? 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 This happened while she was walking to [facility] to picker medications..? Patient denies any trouble with speech or swallowing. #1.? Left homonymous superior quadrantanopia, left sided mild weakness/numbness,suggestive of ischemic stroke: CT head no acute abnormality.? CTA head and neck ruled out LVO.? Patient is being admitted in ICU after given tenecteplase.? NIH stroke scale monitoring, BP 180/105 and with and glucose monitoring as per guidelines.? Serum magnesium 2.0.? Troponin normal.? Fasting lipid profile LDL 60 HDL 39.? TSH normal.? MRI scheduled for evening 6 PM.? 2D echo is done.? After that SOC consult 12/18: MRI brain does not show acute territorial infarct or hemorrhage or mass.? Bubble contrast study negative for [id number] interatrial shunt.? Work-up is complete.? SOC consult.? Plan was to start on dual antiplatelet agent aspirin and Plavix but patient went into A-fib with RVR, new onset therefore started Eliquis 5 mg twice daily. As the MRI does not show features of acute stroke therefore decided Eliquis 5 mg twice daily and aspirin Plavix discontinued afterdiscussion with the funds transfer clerk and patient. #2.? Diabetes mellitus type II with chronic neuropathy: A1c 6.4, glucose well controlled. #3.? Hypertension: As noted we will follow post tenecteplase order set with as needed agents per stroke protocol as needed with resumption of hypertensive regimen once appropriate. #4.? Hyperlipidemia: Patient on rosuvastatin which is changed to daily. PatientLDL is 60. Patient has history of severe myalgia and bone pain therefore did not increase the dose but change the frequency #5.? History sarcoidosis: Unclear exact involvement, encourage continued outpatient follow-up and assessment. #6.? New onset A-fib, transient with history PSVT: Patient was sinus rhythm during hospital course on the bed.? But when tried to make walk she went to A-fib RVR heart rate 120 to 140/min, back to sinus rhythm at rest.? Twelve-lead EKG at today shows normal sinus rhythm at 88 bpm.? 2D echo shows left atrium severely enlarged but Dr. Shell reviewed and he said its not enlarged.? Cardiology consult was done? Heart rate is controlled in 70s, resumed on verapamil. 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 canopy inspector strips and EKG discussed with Dr. Sanches yesterday. Aspirin and Plavix were discontinued. Patient will follow-up with collection systems foreman and neurologist. Advised not to drive until cleared by collection systems foreman. Patient will follow funds transfer clerk for paroxysmal A- fib. Twelve-lead EKG again was done today and shows sinus rhythm 83 bpm. #7.? Anxiety and depression:? continue patient home Paxil as well as clorazepateas needed regimen. #8.? History of VTE: Patient is not chronically anticoagulated per current list,recent tenecteplase administration as noted, holding on chemoprophylaxis given this. #9.? History splenomegaly: Patient status post prior splenectomy. #10.? Allergic rhinitis: We will continue patient home fluticasone regimen. #11.? Obesity: Weight loss and lifestyle changes encouraged, nutrition consultedper stroke admission protocol. #12.? Asthma: Does have budesonide listed on home regimen however she states shedoes not use this, will have as needed albuterol, encourage head of bed and I-S. #13.? ELISHA: CPAP nightly. #14.? DVT prophylaxis: SCDs. #15.? CODE status: Patient SANDOVAL is her daughter and her granddaughter and living will is currently in place but she notes that some items need to be updated. Discussed CODE status at length including difference between FULL code,DNR-CCA and DNR-CC status. Following discussions about the differences in these status, requested Full Code status. Discharge medication reconciliation done. Discharge follow-up instructions completed. Discharge process discussed with the patient and all questions wereanswered to patient's satisfaction. Total time spent, exact 35 minutes on discharge meds reconciliation, examination, coordination of care with nurses and ancillary staff, review of imaging and blood test and discussion with the patient on follow-up instructions. Medications at Discharge Home Medications paroxetine HCl 20 mg tablet (Paxil) 20 mg PO BID DEPRESSION 04/03/16 verapamil 80 mg tablet 80 mg PO BID HEART 04/03/16 cranberry fruit concentrate 250 mg chewable tablet (Azo Cranberry) 250 mg PO TIDsupplement 06/05/19 metformin 500 mg tablet 500 mg PO BID blood sugar 06/05/19 naproxen 500 mg tablet 500 mg PO BID pain 06/05/19 gabapentin 400 mg capsule 400 mg PO BID nerve pain 10/29/20 clorazepate dipotassium 7.5 mg tablet (Tranxene T-Tab) 7.5 mg PO BID PRN Iocdcjc51/14/21 fluticasone propionate 50 mcg/actuation nasal spray,suspension (Flonase Allergy Relief) 1 spray intranasal DAILY 09/09/21 diazepam 5 mg tablet 5 mg PO Q8 PRN Muscle Spasm #12 tabs 05/03/22 clobetasol 0.05 % topical cream 1 applic topical DAILY 12/16/22 rosuvastatin 5 mg tablet (Crestor) 10 mg PO DAILY cholesterol #30 tabs 12/18/22 apixaban 5 mg tablet (Eliquis) 5 mg PO BID 30 days #60 tabs 12/19/22 Weight / BMI Weight Weight: 179 lb 8 oz Body Mass Index (BMI) 35.0 ABG / Lab / Microbiology Data Result Diagrams: 12/17/22 03:40 12/17/22 03:40 Laboratory: Laboratory Results - last 24 hr 12/18/22 12:20: POC Glucose 87 12/18/22 16:25: POC Glucose 96 12/18/22 20:48: POC Glucose 93 12/19/22 06:19: POC Glucose 110 H D/C Instructions Discharge Diet: Low fat / Low cholesterol and 2000 mg Sodium Diet Weight Bearing Status: Weight bearing as tolerated Call your doctor if you observe: Fever of 101 or Higher, Coldness, Increased Pain, Numbness or Tingling, Change in Color, Inability to urinate, Inability to have a bowel movement, Shortness of breath, Dizziness, Fainting spells, Swellingin the ankles, Chest pain, Prolonged hiccupping, Increased palpitations (irregular heartbeat) and Calf discomfort When: IN 2 WEEKS Meaningful Use Info Meaningful Use Diagnoses (Choose all that apply): None applicable Discharge Plan Admission Admit Date/Time: 12/16/22 19:43 Primary Reason for Your Visit: Acute ischemic stroke. Attending Provider: Kyle Roth Primary Care Provider: Yenifer Gonsalez Consulting Providers: Alonso Tapia ; Shahbaz Elliott ; Keshawn Forte ; Darrion Pradhan ; Estrellita Wisdom NP ; Kitty Brooks ; Abner Shell Discharge Orders/Prescriptions Prescriptions: New Eliquis 5 mg Tablet 5 mg PO BID 30 Days Qty: 60 2RF Continued Azo Cranberry 250 mg tablet,chewable 250 mg PO TID fluticasone propionate [Flonase Allergy Relief] 50 mcg/actuation spray,suspension 1 spray intranasal DAILY Rx Instructions: administer into each nostril clorazepate dipotassium [Tranxene T-Tab] 7.5 mg tablet 7.5 mg PO BID PRN (Reason: Anxiety) paroxetine HCl [Paxil] 20 MG tablet 20 mg PO BID verapamil 80 MG tablet 80 mg PO BID gabapentin 400 MG capsule 400 mg PO BID diazepam 5 mg tablet 5 mg PO Q8 PRN (Reason: Muscle Spasm) Qty: 12 0RF clobetasol 0.05 % cream 1 applic TOPICAL DAILY Rx Instructions: apply to vaginal area Changed rosuvastatin [Crestor] 5 mg tablet 10 mg PO DAILY Qty: 30 0RF Rx Instructions: takes every other day if joint pain occurs Held naproxen 500 mg tablet 500 mg PO BID Hold Instructions: Hold it while patient taking dual antiplatelet agent metformin 500 mg tablet 500 mg PO BID Hold Instructions: Hold for 1 day. Referrals / Follow Up: Calvin Nash MD [Med Staff - Active Staff] - Within 1 Week (Left quadrantopia, stroke ) Yenifer Gonsalez MD [Primary Care Provider] - Prosper Main MD [Non-Staff -Ordering Privileges] - Within 2 Weeks (for ischemic stroke) Disposition Disposition (needs filled in before D/C Order can be placed): Home Health Service Charges/Coding Visit Charges Inpatient E&M: 92097 Disch Hosp >30min 12/19/22 1026 <Electronically signed by Kyle Roth MD> Cosigner Signature (if applicable): CC: Dr. Yenifer Gonsalez MD; Dr. Kyle Roth MD~ Signed [facility] Work Phone: Discharge summary Author Adebayo De La Cruz [facility] Note Date/Time January 23, 2025 2:2 0pm [facility] Medical Records Department [address] [place] [address] Discharge Summary 01/23/25 1416 MR#: [id number] Acct: [id number] Name: ELIZABETH RODRIGEZ Rep #:[id number] : 1945 79 From: Adebayo De La Cruz MD PCP: Dr. Yenifer Gonsalez MD Status:AD M JASMIN Location: [place] [address] Providers Date of Admission: 01/22/25 Primary Care Physician: Dr. Yenifer Gonsalez MD Consultations 01/23/25 07:40 Tele [Consult: Tele-Neurology] Routine Consulting Provider: [facility] Reason for Consult: vertigo EMERGENT Consult: No MD Notified: Yes Date Notified: 01/23/25 Time Notified: 08:12 Method of Notification: Answering Service Nursing Unit Staff Notify [facility] of Tele-Neurology Consult: Yes Reason For Visit: TRANSIENT ISCHEMIC ATTACK Diagnosis Discharge Diagnosis (1) Adult BMI 34.0-34.9 kg/sq m: Status: Acute Code(s): Z68.34 - Body mass index [BMI] 34.0-34.9, adult (2) Elevated blood pressure reading with diagnosis of hypertension: Status: Acute Code(s): I10 - Essential (primary) hypertension (3) Anticoagulant long-term use: Status: Acute Code(s): Z79.01 - 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 Acute vertigo ? Patient admitted to monitored bed. Placed on Q4 neurochecks ordered MRI and 2D echo and consultation placed to teleneuro ? Patient MRI was negative for acute CVA. Patient was seen in consultation by teleneuro recommended continuation of systemic anticoagulation meclizine as needed as well as vestibular therapy as 2. Paroxysmal atrial fibrillation ? Patient was on verapamil for rate control as well as apixaban for systemic anticoagulation 3. Hypertension ? Blood pressure controlled, home medications continued with dose adjustment as needed 4. Dyslipidemia ?Patient is on statin therapy, continued at home dose 5. Diabetes mellitus type 2 ? On metformin held on admission placed on Accu-Cheks AC and at bedtime with sliding scale coverage 6. Depression ? Patient is on Paxil, continue 7. Class I obesity with BMI of 34.4 ? Complicating care weight loss advised 8. Peripheral neuropathy ? Patient is on gabapentin did continue 9. DVT prophylaxis ? On apixaban Medications at Discharge Home Medications paroxetine HCl 20 mg tablet (Paxil) 40 mg PO DAILY DEPRESSION 04/03/16 verapamil 80 mg tablet 80 mg PO BID HEART 04/03/16 gabapentin 400 mg capsule 400 mg PO TID nerve pain 10/29/20 fluticasone propionate 50 mcg/actuation nasal spray,suspension (Flonase Allergy Relief) 1 spray intranasal DAILY 09/09/21 apixaban 5 mg tablet (Eliquis) 5 mg PO BID 30 days #60 tabs 12/19/22 biotin 1 mg capsule 1 mg PO DAILY 01/22/25 cholecalciferol (vitamin D3) 50 mcg (2,000 unit) tablet (Thera-D) 50 mcg PO DAILY 01/22/25 magnesium 250 mg tablet 250 mg PO DAILY 01/22/25 meclizine 25 mg tablet 25 mg PO 4X/DAY PRN Dizziness 01/22/25 mecobalamin (vitamin B12) 1,000 mcg lozenges 1,000 mcg PO DAILY 01/22/25 metformin 500 mg tablet,extended release 24 hr 500 mg PO BID 01/22/25 multivitamin (Multiple Vitamins tablet) 1 tab PO DAILY 01/22/25 paroxetine HCl 20 mg tablet 10 mg PO QHS 01/22/25 rosuvastatin 10 mg tablet 10 mg PO DAILY 01/22/25 Hospital Course Summary of Care Provided Minutes Spent on Discharge: 35 Physical Exam Narrative GENERAL: cooperative HEENT: Atraumatic; normocephalic EYES; Anicteric, Normal Conjunctiva NECK; supple, normal thyroid, RESPIRATORY: Diminished to auscultation CARDIOVASCULAR: Regular S1 S2, GI: soft, normoactive bowel sounds, : No Renal angle tenderness; EXTREMITIES: No edema, no clubbing, MUSCULOSKELETAL: no muscle wasting NEURO: Awake; no lateralizing signs. SKIN: No Rash PSYCH; Flat affect Weight / BMI Weight Weight: 82.5 kg Body Mass Index (BMI) 34.3 ABG / Lab / Microbiology Data 01/23/25 04:04 01/23/25 04:04 Laboratory: Laboratory Results - last 24 hr 01/22/25 17:20: WBC 13.5 H, RBC 4.37, Hgb 13.7, Hct 41.0, MCV 93.8, MCH 31.4, MCHC 33.4, RDW Std Deviation 55.5 H, RDW Coeff of Kadi 16.2 H, Plt Count 386, MPV 11.5, Immature Gran % (Auto) 0.300, Neut % (Auto) 39.9 L, Lymph % (Auto) 46.6 H, [place] % (Auto) 12.1 H, Eos % (Auto) 0.8, Baso % (Auto) 0.3, Absolute Neuts (auto) 5.4, Absolute Lymphs (auto) 6.29 H, Nucleated RBC % 0, Platelet Estimate ADEQUATE, PT 16.2 H, INR 1.3, APTT 26.8, Sodium 136, Potassium 4.0, Chloride 99, Carbon Dioxide 23.2, Anion Gap 14, BUN 11, Creatinine 0.85, Estim Creat Clear Calc 54.29, Est GFR (MDRD) Non-Af 70, BUN/Creatinine Ratio 13.0, Glucose 102 H, Calcium 9.7, Troponin T High Sens 8 01/22/25 18:10: POC Glucose 97 01/22/25 19:27: Troponin T Hi Sens 2 Hr 7 01/22/25 22:44: Troponin T Hi Sens 4Hr 13 01/23/25 04:04: WBC 10.9, RBC 4.31, Hgb 13.3, Hct 40.2, MCV 93.3, MCH 30.9, MCHC 33.1, RDW Std Deviation 54.5 H, RDW Coeff of Kadi 15.9 H, Plt Count 414, MPV 10.2, Immature Gran % (Auto) 0.500, Neut % (Auto) 50.3, Lymph % (Auto) 36.2, [place] % (Auto) 11.5 H, Eos % (Auto) 1.1, Baso % (Auto) 0.4, Absolute Neuts (auto) 5.5, Absolute Lymphs (auto) 3.95, Nucleated RBC % 0, PT 15.8 H, INR 1.2, Sodium 137, Potassium 3.9, Chloride 101, Carbon Dioxide 23.5, Anion Gap 12, BUN 10, Creatinine 0.75, Estim Creat Clear Calc 57.34, Est GFR (MDRD) Non-Af 82, BUN/Creatinine Ratio 12.8, Glucose 129 H, Calcium 9.4, Triglycerides 221 H, Cholesterol 165, LDL Cholesterol, Calc 85, VLDL Cholesterol 44 H, HDL Cholesterol 36 L, Cholesterol/HDL Ratio 4.60 Radiography Diagnostic Testing: Radiology Impression Brain CT 01/22/25 17:54 IMPRESSION: 1. No acute intracranial finding. 2. Findings of chronic microvascular ischemic changes and age-related changes. Reading Location: [facility] Head/Neck CTA 01/22/25 17:55 IMPRESSION: 1. No large vessel occlusion, AVM or aneurysm. 2. No stenosis of the cervical carotid arteries by NASCET criteria. Reading Location: [facility] Brain MRI 01/23/25 09:00 IMPRESSION: 1. No specific evidence of an acute intracranial process. 2. Additional description as above. Reading Location: [facility] D/C Instructions Discharge Diet: No restrictions Discharge Activity: Return to Normal Activity Call your doctor if you observe: Fever of 101 or Higher, Shortness of breath, Fainting spells and Chest pain DC O2, CPAP, BIPAP Needs Home O2 Discharge instructions: No Meaningful Use Info Meaningful Use Meaningful Use Diagnoses (Choose all that apply): None applicable Ischemic Stroke Statin Dosing Therapy Reference: STATIN DOSE THERAPY REFERENCE: * Patients > 75 years receive moderate or high dose statin therapy. * Patients 75 years or YOUNGER should receive HIGH intensity statin dose unless contraindicated. You will be required to document reason for non-treatment if statin daily dose does not meet guidelines. HIGH DOSE STATIN THERAPY DAILY Atorvastatin > than or = to 40 mg Rosuvastatin > than or = to 20 mg Amlodipine + Atorvastatin > than or = to 2.5/40 mg Ezetimibe + Simvastatin 10/80 mg Simvastatin 80mg Discharge Plan Admission Admit Date/Time: 01/22/25 20:56 Attending Provider: Adebayo De La Cruz Primary Care Provider: Yenifer Gonsalez Consulting Providers: Pablo Fernandes; Smith Benites; Sunil Mcnally; Quiana Sexton; Mara Tillman; Kat Tinajero; José Waters; Tasha Aviles; Eliseo Dent; Shahriar Saeed; German Talamantes; Ariella Madera; Mike Nunn; Marilynn Lala; Caity Samuel; [place]ico Ashraf; Farooq Ramon; Yesica Rubalcava; Pan Leong; Ness Liao; Kimberly Mckinney Discharge Orders/Prescriptions Prescriptions: Continued fluticasone propionate [Flonase Allergy Relief] 50 mcg/actuation spray,suspension 1 spray intranasal DAILY Rx Instructions: administer into each nostril paroxetine HCl [Paxil] 20 MG tablet 40 mg PO DAILY Rx Instructions: AM WITH 10 MG HS verapamil 80 MG tablet 80 mg PO BID gabapentin 400 MG capsule 400 mg PO TID Eliquis 5 mg Tablet 5 mg PO BID 30 Days Qty: 60 2RF metformin 500 mg tablet extended release 24 hr 500 mg PO BID rosuvastatin 10 mg tablet 10 mg PO DAILY mecobalamin (vitamin B12) 1,000 mcg lozenge 1,000 mcg PO DAILY Rx Instructions: allow to dissolve in mouth OR may chew lightly before swallowing magnesium 250 mg tablet 250 mg PO DAILY multivitamin [Multiple Vitamins] Tablet 1 tab PO DAILY biotin 1 mg capsule 1 mg PO DAILY cholecalciferol (vitamin D3) [Thera-D] 50 mcg (2,000 unit) tablet 50 mcg PO DAILY meclizine 25 mg tablet 25 mg PO 4X/DAY PRN paroxetine HCl 20 mg tablet 10 mg PO QHS Other Ambulatory Orders: Physical Therapy Evaluation (Routine) Location: None Selected Ordered By: Dr. Adebayo De La Cruz Referrals / Follow Up: Yenifer Gonsalez MD [Primary Care Provider] - Within 1 Week Disposition Disposition (needs filled in before D/C Order can be placed): Home, Self Care Charges/Coding Visit Charges Inpatient E&M: 87448 Disch Hosp >30min 01/23/25 1420 <Electronically signed by Adebayo De La Cruz MD> Cosigner Signature (if applicable): CC: Dr. Adebayo De La Cruz MD; Dr. Yenifer Gonsalez MD~ Signed [facility] Work Phone: Evaluation + Plan note Future Appointments [facility] Evaluation note* Diagnosis Generalized anxiety disorder- Primary Excessive sweating Generalized hyperhidrosis Bilateral leg pain Pain in limb Controlled type 2 diabetes mellitus without complication, without long-term current use of insulin (HCC) Pure hypercholesterolemia Lichen sclerosus Circumscribed scleroderma Encounter for screening mammogram for breast cancer Colon cancer screening Special screening for malignant neoplasms, colon Encounter for screening for osteoporosis Special screening for osteoporosis Asymptomatic postmenopausal status Vitamin D deficiency Unspecified vitamin D deficiency Obesity, Class I, BMI 30-34.9 Obesity, unspecified [facility] Diagnosis Encounter for screening for osteoporosis Special screening for osteoporosis Asymptomatic postmenopausal status [facility]* Diagnosis PSVT (paroxysmal supraventricular tachycardia) (HCC) Paroxysmal supraventricular tachycardia documented [facility] this [facility]* Diagnosis Breast pain- Primary Mastodynia [facility] noteNo assessment information availableWFostoria City [facility] Work Phone: Evaluation note* Diagnosis Balance disorder- Primary Other symptoms involving nervous and musculoskeletal systems Gait instability Abnormality of gait Tremor Abnormal involuntary movements Frequent falls Personal history of fall documented [facility] this [facility]* Diagnosis Breast pain Mastodynia [facility]* Diagnosis Lichen sclerosus Circumscribed scleroderma [facility]* Diagnosis Gait instability- Primary Abnormality of gait Spinal stenosis of lumbar region, unspecified whether neurogenic claudication present Vertigo Dizziness and giddiness Balance disorder Other symptoms involving nervous and musculoskeletal systems Tremor Abnormal involuntary movements Frequent falls Personal history of fall [facility]* Diagnosis Controlled type 2 diabetes mellitus without complication, without long-term current use of insulin (HCC)- Primary Gait instability Abnormality of gait Compression fracture of L1 vertebra with routine healing, subsequent encounter Obesity, Class I, BMI 30-34.9 Obesity, unspecified ELISHA on CPAP Obstructive sleep apnea (adult) (pediatric) Generalized anxiety disorder PSVT (paroxysmal supraventricular tachycardia) (HCC) Paroxysmal supraventricular tachycardia Encounter for immunization Need for other specified prophylactic vaccination against single bacterial disease [facility]* Diagnosis Frequent falls- Primary Personal history of fall Spinal stenosis of lumbar region, unspecified whether neurogenic claudication present Vertigo Dizziness and giddiness Gait instability Abnormality of gait Balance disorder Other symptoms involving nervous and musculoskeletal systems [facility] Diagnosis Lumbar disc disease- Primary Other and unspecified disc disorder of lumbar region [facility] Diagnosis Spinal stenosis of lumbar region, unspecified whether neurogenic claudication present [facility] Diagnosis Frequent falls- Primary Personal history of fall Spinal stenosis of lumbar region, unspecified whether neurogenic claudication present Vertigo Dizziness and giddiness Gait instability Abnormality of gait Balance disorder Other symptoms involving nervous and musculoskeletal systems [facility]* Diagnosis Herpes simplex vulvovaginitis [facility] Diagnosis Spinal stenosis of cervical region- Primary Spinal stenosis in cervical region Lumbar disc disease Other and unspecified disc disorder of lumbar region Cervical spondylosis with myelopathy Thoracic spondylosis without myelopathy Spinal stenosis, lumbar region with neurogenic claudication [facility] Diagnosis Controlled type 2 diabetes mellitus without complication, without long-term current use of insulin (HCC)- Primary Herpes simplex vulvovaginitis Mixed hyperlipidemia Eyelid pain of both eyes Dry eye syndrome of both eyes Compression fracture of L1 vertebra with routine healing, subsequent encounter Lumbar radiculopathy Thoracic or lumbosacral neuritis or radiculitis, unspecified Chronic bilateral low back pain with bilateral sciatica Abnormal urine odor Other nonspecific finding on examination of urine Urinary frequency Urinary urgency Urgency of urination [facility] Diagnosis Dry eye syndrome of both eyes- Primary Squamous blepharitis of upper and lower eyelids of both eyes Type 2 diabetes mellitus without retinopathy (HCC) Type II or unspecified type diabetes mellitus without mention of complication, not stated as uncontrolled Lesion of eyelid of both eyes Pseudophakia of both eyes Lens replaced by other means PCO (posterior capsular opacification), bilateral After-cataract, unspecified [facility] Diagnosis UTI symptoms- Primary Other symptoms involving urinary system [facility] Diagnosis Compression fracture of L1 vertebra with routine healing, subsequent encounter Lumbar radiculopathy Thoracic or lumbosacral neuritis or radiculitis, unspecified Chronic bilateral low back pain with bilateral sciatica [facility]* Diagnosis Cervical disc disorder with radiculopathy- Primary Brachial neuritis or radiculitis nos Bilateral carpal tunnel syndrome Carpal tunnel syndrome [facility]* Diagnosis Cervical disc disorder with radiculopathy- Primary Brachial neuritis or radiculitis nos Spinal stenosis in cervical region [facility]* Diagnosis Lichen sclerosus Circumscribed scleroderma Pain in both lower extremities Primary osteoarthritis of both knees Primary localized osteoarthrosis, lower leg documented in this encounter [facility] note* Diagnosis Onset Date Resolution Status 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 ([employer]) stroke acute Hyperlipidemia acute Inability to walk acute Obesity acute Right homonymous superior quadrantanopia acute Vertigo due to acute cerebrovascular disease [facility] Work Phone: Evaluation note* Diagnosis Onset Date Resolution Status Acute CVA (cerebrovascular accident) acute 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 ([employer]) stroke acute Hyperlipidemia acute Inability to walk acute Obesity acute Paroxysmal atrial fibrillation acute Right homonymous superior quadrantanopia acute Vertigo due to acute cerebrovascular disease [facility] Work Phone: Evaluation note* Diagnosis Muscle spasm- Primary Spasm of muscle [facility]* Diagnosis Osteopenia, unspecified location- Primary Cerebrovascular accident (CVA), unspecified mechanism ([facility]) Chronic atrial fibrillation ([facility]) Atrial fibrillation Ascending aortic aneurysm, unspecified whether ruptured ([facility]) Controlled type 2 diabetes mellitus without complication, without long-term current use of insulin ([facility]) PSVT (paroxysmal supraventricular tachycardia) ([facility]) Paroxysmal supraventricular tachycardia Generalized anxiety disorder Recurrent major depressive disorder, in partial remission ([facility]) Abnormality of gait Falling episodes Lack of coordination Encounter for therapeutic drug monitoring Gait instability- Primary Abnormality of gait Spinal stenosis of lumbar region, unspecified whether neurogenic claudication present Vertigo Dizziness and giddiness Balance disorder Other symptoms involving nervous and musculoskeletal systems Tremor Abnormal involuntary movements Frequent falls Personal history of fall [facility]* Diagnosis Cerebrovascular accident (CVA), unspecified mechanism ([facility])- Primary PSVT (paroxysmal supraventricular tachycardia) ([facility]) Paroxysmal supraventricular tachycardia Chronic pain of both shoulders Pain in joint, shoulder region Bilateral primary osteoarthritis of knee Osteopenia, unspecified location Mixed hyperlipidemia Gait instability- Primary Abnormality of gait Spinal stenosis of lumbar region, unspecified whether neurogenic claudication present Vertigo Dizziness and giddiness Balance disorder Other symptoms involving nervous and musculoskeletal systems Tremor Abnormal involuntary movements Frequent falls Personal history of fall [facility]* Diagnosis Cerebrovascular accident (CVA), unspecified mechanism (HCC)- Primary Gait instability Abnormality of gait Spinal stenosis of lumbar region, unspecified whether neurogenic claudication present Vertigo Dizziness and giddiness Balance disorder Other symptoms involving nervous and musculoskeletal systems Tremor Abnormal involuntary movements Frequent falls Personal history of fall Pain of right upper extremity [facility]* Diagnosis Vertigo- Primary Dizziness and giddiness Gait instability Abnormality of gait Bilateral primary osteoarthritis of knee PSVT (paroxysmal supraventricular tachycardia) (HCC) Paroxysmal supraventricular tachycardia [facility]* Diagnosis Primary osteoarthritis of both knees- Primary Primary localized osteoarthrosis, lower leg Cerebrovascular accident (CVA), unspecified mechanism (HCC)- Primary Gait instability Abnormality of gait Spinal stenosis of lumbar region, unspecified whether neurogenic claudication present Vertigo Dizziness and giddiness Balance disorder Other symptoms involving nervous and musculoskeletal systems Frequent falls Personal history of fall Pain of right upper extremity [facility]* Diagnosis Cerebrovascular accident (CVA), unspecified mechanism (HCC)- Primary Gait instability Abnormality of gait Balance disorder Other symptoms involving nervous and musculoskeletal systems Spinal stenosis of lumbar region, unspecified whether neurogenic claudication present Vertigo Dizziness and giddiness Pain of right upper extremity Pain of left upper extremity Tremor Abnormal involuntary movements [facility]* Diagnosis Encounter for medical assessment- Primary documented in this encounter [facility] note* Diagnosis Onset Date Resolution Status AAA (abdominal aortic aneurysm) without rupture acute Dilated aortic root acute Encounter for preoperative a ssessment for noncoronary cardiac surgery acute Essential hypertension acute Hyperlipidemia acute Paroxysmal atrial fibrillation acute [facility] Work Phone: Evaluation note* Diagnosis Osteopenia, unspecified location documented in this encounter [facility] note* Diagnosis Thoracic spondylosis without myelopathy Spinal stenosis of cervical region Spinal stenosis in cervical region [facility]* Diagnosis Primary osteoarthritis of both knees Primary localized osteoarthrosis, lower leg documented in this encounter [facility] note* Diagnosis Preop exam for internal medicine- Primary Other specified pre-operative examination Controlled type 2 diabetes mellitus without complication, without long-term current use of insulin ([facility]) PAF (paroxysmal atrial fibrillation) ([facility]) Atrial fibrillation Mixed hyperlipidemia Encounter for immunization Need for other specified prophylactic vaccination against single bacterial disease [facility]* Diagnosis Osteopenia, unspecified location documented in this [facility]* Diagnosis Controlled type 2 diabetes mellitus without complication, without long-term current use of insulin ([facility])- Primary Generalized anxiety disorder Mixed hyperlipidemia Essential tremor Essential and other specified forms of tremor Fatigue, unspecified type Asymptomatic postmenopausal status Encounter for long-term current use of medication [facility]* Diagnosis Herpes simplex vulvovaginitis documented [facility] this [facility]* Diagnosis Controlled type 2 diabetes mellitus without complication, without long-term current use of insulin ([facility])- Primary Recurrent major depressive disorder, in partial remission ([facility]) PAF (paroxysmal atrial fibrillation) ([facility]) Atrial fibrillation Ascending aortic aneurysm, unspecified whether ruptured ([facility]) PSVT (paroxysmal supraventricular tachycardia) ([facility]) Paroxysmal supraventricular tachycardia Lichen sclerosus Circumscribed scleroderma Generalized anxiety disorder [facility]* Diagnosis Injury of right wrist, initial encounter- Primary Acute pain of right wrist Injury of right wrist, initial encounter Acute pain of right wrist [facility] Diagnosis Injury of right wrist, initial encounter Acute pain of right wrist [facility]* Diagnosis Chronic pain of both shoulders Pain in joint, shoulder region documented [facility] this [facility]* Diagnosis Gait instability Abnormality of gait Balance disorder Other symptoms involving nervous and musculoskeletal systems Frequent falls Personal history of fall documented [facility] this [facility]* Diagnosis Transient cerebral ischemia, unspecified type documented [facility] this [facility]* Diagnosis Cough Shortness of breath [facility] this [facility]* Diagnosis Cough [facility] Diagnosis Urinary frequency- Primary 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 Diagnosis Onset Date Resolution Status Admit Date Adult BMI 34.0-34.9 kg/sq m acute January 22, 2025 8:22pm Anticoagulant long-term use acute January 22, 2025 8:22pm Elevated blood pressure read ing with diagnosis of hypertension acute A pril 2024 8:22pm Hyperlipidemia acute December 8:22pm Vertigo of central origin acute January 22, 2025 8:22pm [facility] Work Phone: Evaluation note* Diagnosis Syncope, unspecified syncope type- Primary TIA (transient ischemic attack) Unspecified transient cerebral ischemia Chronic atrial fibrillation (HCC) Atrial fibrillation Controlled type 2 diabetes mellitus without complication, without long-term current use of insulin ([facility]) documented [facility]* Diagnosis Recurrent major depressive disorder, in partial remission Generalized anxiety disorder PSVT (paroxysmal supraventricular tachycardia) ([facility]) Paroxysmal supraventricular tachycardia documented [facility] December 16, 2022 8:37pm Note Date/Time December 16, 2022 7:4 5pm [facility] Medical Records Department [address] [place] [id number] History & Physical Exam 12/16/221939 MR#: [id number] Acct: [id number] Name: ELIZABETH RODRIGEZ Rep #:[id number] : 1945 77 From: Kitty Brooks MD PCP: Dr. Yenifer Gonsalez MD Status:AD M IN Location: ICU ICU03-1 HPI - General General Date of Admission: 12/16/22 Date of Service: 12/16/22 Chief Complaint: Vision changes, imbalance, L sided weakness/paresthesias. HPI Narrative The patient is a 77 y/o F w/ PMHx: Asthma, Hx PSVT, HLD, Obesity, Depression andAnxiety, OA, Diabetes mellitus type II with chronic neuropathy, ELISHA, Hx VTE, Sarcodosis with unclear involvement, Known splenomegaly s/p prior splenectomy who presents to the [facility] ED on 12/16/22 with history of onset left eye blurry vision with associated dizziness and balance difficulties occurring suddenly while walking with her last known normal at approximately 5:30 PM on day of presentation [facility] In the ED evaluation notable for right quadrantopia as well as left-sided mild weakness/numbness and ataxia in the left lower extremity with difficulty walking/central ataxia. Stroke alert initiated and per neurology assessment NIHstroke scale reported as 5 with recommendation for thrombolytic administration, admission and continued routine stroke evaluation in the setting of tenecteplaseadministration. Work-up in the ED included T97.4, heart rate 96, BP 137/75, respiratory rate 18, 96% on room air, CBC with WC 11.5, hemoglobin 14.7, platelet 421 without marked shift, unremarkable coags, BMP with glucose 159 otherwise not marked appearing, troponin 5, CT of the brain with no acute intracranial or calvarial abnormality, CTA head and neck with tortuous carotid arteries with minimal atherosclerotic changes at the left carotid bulb with no significant stenosis, normal vertebral arteries, hypoplastic A1 segment of the left anteriorcerebral artery, A2 segment supplied by the patent anterior communicating artery, hypoplastic P1 segment of the left posterior cerebral artery, posterior artery supplied by the patent posterior communicating artery with no evidence ofany aneurysm or large vessel occlusion, EKG with sinus tach cardia with no acuteevidence of ischemia with mild nonspecific changes. In the ED patient initiatedon maintenance IV fluids and initiated on the tenecteplase administration tract with stroke alert. In the ED upon hospitalist evaluation patient had significant improvement of symptoms with resolution of vision changes, vertiginous symptoms abated, paresthesias resolved and left-sided weakness significantly improved although still did have left- sided mild ataxia on finger-nose and [id number] evaluation. [facility] Medical History (Updated 12/16/22 @ 20:[address] Kitty Brooks MD) Anxiety and depression Arthritis Asthma BMI 36.0-36.9,adult Diabetes Hemorrhoids Herpes simplex vulvovaginitis History of blood clots History of PSVT (paroxysmal supraventricular tachycardia) Hyperlipidemia Lichen sclerosus Obesity Sarcoidosis Sleep apnea Spleen anomaly Splenomegaly Vulvar dermatitis Home Medications paroxetine HCl 20 mg tablet (Paxil) 20 mg PO BID DEPRESSION 04/03/16 [History Last Taken 10/28/20] verapamil 80 mg tablet 80 mg PO BID HEART 04/03/16 [History Last Taken 10/28/20] cranberry fruit concentrate 250 mg chewable tablet (Azo Cranberry) 250 mg PO TIDsupplement 06/05/19 [History Last Taken 10/28/20] metformin 500 mg tablet 500 mg PO BID blood sugar 06/05/19 [History Last Taken 10/28/20] naproxen 500 mg tablet 500 mg PO BID pain 06/05/19 [History Last Taken 10/28/20] gabapentin 400 mg capsule 400 mg PO BID nerve pain 10/29/20 [History Last Taken 10/28/20] clorazepate dipotassium 7.5 mg tablet (Tranxene T-Tab) 7.5 mg PO BID PRN Vqlvjat11/14/21 [History Last Taken Unknown] fluticasone propionate 50 mcg/actuation nasal spray,suspension (Flonase Allergy Relief) 1 spray intranasal DAILY 09/09/21 [History Last Taken Unknown] rosuvastatin 5 mg tablet (Crestor) 5 mg PO DAILY cholesterol 09/09/21 [History Last Taken Unknown] diazepam 5 mg tablet 5 mg PO Q8 PRN Muscle Spasm #12 tabs 05/03/22 [Rx Last Taken Unknown] clobetasol 0.05 % topical cream 1 applic topical DAILY 12/16/22 [History Last Taken Unknown] Allergy/AdvReac Type Severity Reaction Status Date / Time lidocaine Allergy Intermediate tachycardia Verified 12/16/22 18:27 Penicillins Allergy Hives Verified 12/16/22 18:27 atorvastatin AdvReac Pain in Verified 12/16/22 18:27 joints hydrocodone bitartrate AdvReac Vomiting Verified 12/16/22 18:27 [From Vicodin] oxycodone HCl [From Percocet] AdvReac Vomiting Verified 12/16/22 18:27 Family History (Updated 12/16/22 @ 20:[address] 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 HEENT: Sudden onset right vision deficits Eyes: No visual loss, blurred vision, double vision or yellow sclerae. Ears, Nose, Throat: No hearing loss, sneezing, congestion, runny nose or sore throat. SKIN: No rash or itching, lesions, wounds. CARDIOVASCULAR: No chest pain, chest pressure or chest discomfort, palpitations,edema, orthopnea, syncopal events. RESPIRATORY: No shortness of breath, cough or sputum, wheezing, hemoptysis. GASTROINTESTINAL: No anorexia, nausea, vomiting or diarrhea, abdominal pain, melena, BRBPR. GENITOURINARY: No dysuria, frequency, urgency or retention. NEUROLOGICAL: + Right eye vision deficits, difficulty with balance, left lower extremity ataxia, left-sided mild weakness and paresthesias, dizziness/vertigo. No headachesyncope, paralysis, change in bowel or bladder control, seizure. MUSCULOSKELETAL: + muscle, back pain, joint pain or stiffness. HEMATOLOGIC: No anemia, bleeding or bruising. LYMPHATICS: No enlarged nodes. + history of splenectomy. PSYCHIATRIC: + history of depression or anxiety. ENDOCRINOLOGIC: No reports of sweating, cold or heat intolerance. No polyuria orpolydipsia. ALLERGIES: + history of asthma, rhinitis. Vital Signs Vital Signs Vital Signs: 12/16/22 18:25 12/16/22 18:49 12/16/22 18:49 Temperature 97.4 F L 98.3 F Temperature Source Temporal Temporal Pulse Rate 96 98 Respiratory Rate 18 16 Blood Pressure 137/75 H 142/84 H Blood Pressure Mean 95 103 Pulse Ox 96 94 Oxygen Delivery Method Room Air Room Air Room Air 12/16/22 19:00 12/16/22 19:21 12/16/22 19:30 Temperature 97.7 F L Temperature Source Oral Pulse Rate 92 96 Respiratory Rate 15 17 Blood Pressure 142/84 H 152/85 H 142/94 H Blood Pressure Mean 103 110 Pulse Ox 98 94 Oxygen Delivery Method Room Air Room Air Weight Weight: 187 lb 2.759 oz Body Mass Index (BMI) 35.3 Physical Exam Narrative Physical Examination: General: Awake, alert, oriented x 3 and cooperative, seated upright in the ED bed, anxious, fatigued, significantly improving status post tenecteplase administration. Skin: Normal color, normal turgor, no icterus, no cyanosis. HEENT: AT/NC, EOMI, PERRLA, MMM, no carotid bruits or JVD noted, complete resolution of prior visual deficits specifically to the right upper outer quadrant. Lungs: CTA bilaterally, moderate effort, mild decrease BL bases, no rales, ronchi or wheezing. Heart: Currently regular rate and rhythm; no gallop, rub audible. Abdomen: Soft, obese, NTTP, ND, normal BS, no HSM. Extremities: No cyanosis, clubbing, or edema. Neurological: Patient awake, alert, oriented as noted, cognitive function intact; pupils equally reactive to light and accommodation, all trotter of vision currently intact, cranial nerves II-XII grossly normal, moving all 4 extremities, sensation has returned to normal, no focal deficits, strength preserved, mild noted left upper extremity and lower extremity ataxia but extremely improved from initial, equivocal Babinski. Psychiatric: Affect appears anxious but calms with discussion, no acute evidenceof depressive feelings but does have underlying anxiety and depressive history. Results Lab / Micro Data Result Diagrams: 12/16/22 18:35 12/16/22 18:35 Labs: Laboratory Results - last 24 hr 12/16/22 18:35: WBC 11.5 H, RBC 4.85, Hgb 14.7, Hct 45.4, MCV 93.6, MCH 30.3, MCHC 32.4, RDW Std Deviation 53.9 H, RDW Coeff of Kadi 15.6 H, Plt Count 421, MPV10.5, Immature Gran % (Auto) 0.300, Neut % (Auto) 47.8, Lymph % (Auto) 37.0, [place] % (Auto) 12.3 H, Eos % (Auto) 2.2, Baso % (Auto) 0.4, Absolute Neuts (auto)5.5, Absolute Lymphs (auto) 4.24, Nucleated RBC % 0 12/16/22 18:35: PT 13.0, INR 1.0, APTT 24.5 12/16/22 18:35: Sodium 136, Potassium 3.8, Chloride 104, Carbon Dioxide 23.0, Anion Gap 9, BUN 17, Creatinine 1.01, Estim Creat Clear Calc 36.32, Est GFR (MDRD) Af Amer 69, Est GFR (MDRD) Non-Af 57 L, BUN/Creatinine Ratio 16.8, Glucose 159 H, Calcium 9.8, Troponin I High Sens 5 12/16/22 18:47: POC Glucose 141 H Radiology Impression Brain CT 12/16/22 18:31 IMPRESSION: No acute intracranial or calvarial abnormality. Electronically Signed: Jj Puente DO at 18:54 EDT Reading Location ID and State: [facility] Tel [phone], Service support , ADDENDUM: 12/16/22 1914 IMPRESSION: No acute intracranial or calvarial abnormality. N.B. : The above Results were Read Back by Jj Puente DO to Alejandro Chaudhari MD, and understanding confirmed on 12/16/2022 19:07:51 (ET). Electronically Signed: jJ Puente DO at 18:54 EDT Reading Location ID and State: [facility] / [place] Tel [phone], Service support , Head/Neck CTA 12/16/22 18:32 IMPRESSION: 1. Tortuous carotid arteries was minimal atherosclerotic changes at the left carotid bulb. There is no significant stenosis. 2. Normal vertebral arteries. 3. 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 The A2 segment is supplied via the patent anterior communicating artery. 4. Hypoplastic P1 segment of the left posterior cerebral artery. The posterior artery is supplied via the patent posterior communicating artery. 5. No evidence of aneurysm or large vessel occlusion. Electronically Signed: Jj Puenet DO at 19:06 EDT Reading Location ID and State: [facility] Tel [phone], Service support , ADDENDUM: 12/16/22 1915 IMPRESSION: 1. Tortuous carotid arteries was minimal atherosclerotic changes at the left carotid bulb. There is no significant stenosis. 2. Normal vertebral arteries. 3. 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 The A2 segment is supplied via the patent anterior communicating artery. 4. Hypoplastic P1 segment of the left posterior cerebral artery. The posterior artery is supplied via the patent posterior communicating artery. 5. No evidence of aneurysm or large vessel occlusion. N.B. : The above Results were Read Back by Jj Puente DO to Alejandro Chaudhari MD, and understanding confirmed on 12/16/2022 19:09:13 (ET). 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 #1. 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 Will consult Neurology for evaluation. Goal currently for BP less than 185/105 prior to administration tenecteplase in the ED with plans for postthrombolytic protocol, will attempt to transition to at least moderate dose statin w/ AM FLP, fall precautions. Magnesium, TSH, FLP, hemoglobin A1c requested. May have meclizine for symptoms as needed. We will plan on requesting neurology SOC consultation once MRI of the brain and further work-up is obtained at the 24-hour ervin. #2. Diabetes mellitus type II with chronic neuropathy: Hold oral home regimen, continue home insulin regimen, ADA diet, accu checks w/ ISS, hemoglobin A1c requested given acute presentation, nutrition consultation for education and teach, continue patient home chronic gabapentin regimen. #3. Hypertension: As noted we will follow post tenecteplase order set with as needed agents per stroke protocol as needed with resumption of hypertensive regimen once appropriate. #4. Hyperlipidemia: Will attempt to change to moderate dose statin therapy given acute presentation as noted but does have history of joint pain with statin therapies, FLP in a.m. #5. History sarcoidosis: Unclear exact involvement, encourage continued outpatient follow-up and assessment. #6. History PSVT: Given acute presentation as noted temporarily holding patienton verapamil, will maintain on telemetry monitoring. #7. Anxiety and depression: We will continue patient home Paxil as well as clorazepate as needed regimen. #8. History of VTE: Patient is not chronically anticoagulated per current list,recent tenecteplase administration as noted, holding on chemoprophylaxis given this. #9. History splenomegaly: Patient status post prior splenectomy. #10. Allergic rhinitis: We will continue patient home fluticasone regimen. #11. Obesity: Weight loss and lifestyle changes encouraged, nutrition consultedper stroke admission protocol. #12. Asthma: Does have budesonide listed on home regimen however she states shedoes not use this, will have as needed albuterol, encourage head of bed and I-S. #13. ELISHA: CPAP nightly. #14. DVT prophylaxis: SCDs. #15. CODE status: Patient SANDOVAL is her daughter and her granddaughter and living will is currently in place but she notes that some items need to be updated. Discussed CODE status at length including difference between FULL code,DNR-CCA and DNR-CC status. Following discussions about the differences in these status, requested Full Code status. Advanced Care Planning Face to Face Time: 16minutes. Admission Evaluation Time spent evaluating chart, patient history, patient evaluation, care planning and discussion with specialists: 75 minutes. Charges/Coding Visit Charges Inpatient E&M: 23991 Init Hosp L3 Procedures Hospitalists Procedures: 34291 Advncd Care Plan 30 Min 12/16/222036 <Electronically signed by Kitty Brooks MD> Cosigner Signature (if applicable): CC: Dr. Kitty Brooks MD; Dr. Yenifer Gonsalez MD~ Signed [facility] Work Phone: History and physical note Author Pablo Fernandes [facility] Note Date/Time January 22, 2025 8:5 5pm [facility] Medical Records Department [address] [place] [address] History & Physical Exam 01/22/252045 MR#: [id number] Acct: [id number] Name: ELIZABETH RODRIGEZ Rep #:[id number] : 1945 79 From: Pablo Fernandes MD PCP: Dr. Yenifer Gonsalez MD Status:AD M [facility] Location: [facility] [id number] HPI - General General Date of Admission: 01/22/25 Date of Service: 01/22/25 Chief Complaint: acute change in sensorium HPI Narrative ELIZABETH RODRIGEZ, is a 79 F who presents to the emergency room after an acute onset of vertigo which began while the patient was purchasing rental shoes at the [facility]. Patient states she has never had severe vertigo like this happen to her before. She complained of double vision at the time. Patient was sent to the emergency room and a stroke team was called. She was not deemed a candidate [facility] due to currently being on Eliquis. She does have a significant history of essential hypertension, abdominal aortic aneurysm, paroxysmal atrial fibrillation for which she takes Eliquis, prior stroke, vertigo previously with cerebrovascular accident and right homonymous superior quadrantanopia. Patient currently has a slight headache with and has no trouble speaking or swallowing during my evaluation. She denies paresthesia or weakness of her upper extremities or lower extremities. She does have a history of walking difficultybut states her current ability is worse than usual. Her vertigo resolved after an hour of symptoms. In she is completely resolved at this time. She will be admitted for observation and MRI ordered according to telestroke consultation. 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 Arthritis Obesity Hyperlipidemia Vulvar dermatitis Lichen sclerosus Diabetes Sarcoidosis Spleen anomaly Splenomegaly History of blood clots Sleep apnea Hemorrhoids BMI 36.0-36.9,adult History of PSVT (paroxysmal supraventricular tachycardia) Home Medications ?Medication ?Instructions ?Recorded ?Last Taken ?Type paroxetine HCl 20 mg tablet (Paxil) 40 mg PO DAILY DEP RESSION 04/03/16 01/22/25 History verapamil 80 mg tablet 80 mg PO BID HEART 04/03/16 01/22/25 History gabapentin 400 mg capsule 400 mg PO TID nerve pain 11/1701/22/25 History fluticasone propionate 50 1 spray intranasal DAILY 01/21/25 History mcg/actuation nasal spray,suspension (Flonase Allergy Relief) apixaban 5 mg tablet (Eliquis) 5 mg PO BID 30 days #60 tabs 12/19/22 01/22/25 Rx biotin 1 mg capsule 1 mg PO DAILY 01/22/2501/22 History cholecalciferol (vitamin D3) 50 50 mcg PO DAILY 01/22/25 History mcg (2,000 unit) tablet (Thera-D) magnesium 250 mg tablet 250 mg PO DAILY 01/22/25 History meclizine 25 mg tablet 25 mg PO 4X/DAY PRN Dizzines s 01/22/25 Unknown History mecobalamin (vitamin B12) 1,000 1,000 mcg PO DAILY 01/22/25 History mcg lozenges metformin 500 mg tablet,extended 500 mg PO BID 01/22/25 History release 24 hr multivitamin (Multiple Vitamins 1 tab PO DAILY 5 01/22/25 History tablet) paroxetine HCl 20 mg tablet 10 mg PO QHS 01/22/2512/27 History rosuvastatin 10 mg tablet 10 mg PO DAILY 01/22/2512/27 History Allergy/AdvReac Type Severity Reaction Status Date / Time lidocaine Allergy Intermediate tachycardia Verified 06/23/23 10:34 Penicillins Allergy Hives Verified 06/23/23 10:34 atorvastatin AdvReac Pain in Verified 06/23/23 10:34 joints hydrocodone bitartrate (From AdvReac Vomiting Verified 06/23/23 10:34 Vicodin) oxycodone HCl (From Percocet) AdvReac Vomiting Verified 06/23/23 10:34 Family History Daughter Hypertension Father Heart disease Mother Dementia Surgical History History of breast biopsy H/O splenectomy History of hysterectomy Social History Smoking Status: Never smoker alcohol intake: current details: social substance use type: does not use caffeine: Yes what type of physical activity do you participate in: walking seatbelt use: always do you feel safe at home: Yes 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 Constitutional: Denies chills or fever(s) Eyes Eyes: Reports double vision ENT HEENT: Denies abnormal hearing Cardiovascular Cardiovascular: Denies chest pain Respiratory/Chest Respiratory/Chest: Denies cough Gastrointestinal Gastrointestinal: Denies abdominal pain Genitourinary Genitourinary: Denies dysuria Musculoskeletal Musculoskeletal: Denies back pain Integumentary Integumentary: Denies dry skin Neurologic Neurologic: Reports abnormal gait and sensory deficit Psychiatric Psychiatric: Denies anxiety Vital Signs Vital Signs Vital Signs: 01/22/25 17:45 01/22/25 17:48 01/22/25 17:54 Temperature 98.0 F Temperature Source Oral Pulse Rate 90 Respiratory Rate 14 Respiratory Effort Normal Respiratory Pattern Normal Blood Pressure 160/81 H Blood Pressure Mean 107 Pulse Ox 95 Oxygen Delivery Method Room Air Room Air 01/22/25 18:09 01/22/25 18:24 01/22/25 19:00 Temperature 98.1 F Temperature Source Oral Pulse Rate 93 85 83 Respiratory Rate 20 H 16 14 Respiratory Effort Respiratory Pattern Blood Pressure 156/93 H 143/86 H 144/81 H Blood Pressure Mean 114 105 102 Pulse Ox 95 93 94 Oxygen Delivery Method Room Air Room Air Room Air 01/22/25 19:30 01/22/25 20:00 01/22/25 20:13 Temperature 98.4 F 98.4 F Temperature Source Oral Pulse Rate 85 92 90 Respiratory Rate 20 H 17 18 Respiratory Effort Respiratory Pattern Blood Pressure 139/77 H 162/87 H 162/87 H Blood Pressure Mean 97 112 112 Pulse Ox 93 92 95 Oxygen Delivery Method Room Air Room Air Weight Weight: 183 lb 14.4 oz Body Mass Index (BMI) 34.7 Physical Exam Const alert, oriented x3 and no apparent distress General Appearance: cooperative and well developed HEENT normocephalic and head/scalp atraumatic Eyes PERRL and EOMs intact bilaterally Neck no lymphadenopathy General: trachea midline Lymph Lymphatic: no lymphadenopathy noted Resp normal respiratory effort, normal air movement and clear to auscultation bilaterally Cardio regular rate, regular rhythm, S1 normal heart sound and S2 normal heart sound GI normal to inspection, nondistended, normoactive bowel sounds Extremity normal capillary refill Skin General Skin Exam: no breakdown Neuro CN's II-XII intact bilaterally, no focal motor deficits and no sensory deficits noted Coordination / Balance: [id number] test normal Speech: speech normal Motor Exam: strength 5/5 throughout Psych thought process normal, cooperative and affect normal Appearance: appropriate Results Lab / Micro Data 01/22/25 17:20 01/22/25 17:20 Labs: Laboratory Results - last 24 hr 01/22/25 17:20: WBC 13.5 H, RBC 4.37, Hgb 13.7, Hct 41.0, MCV 93.8, MCH 31.4, MCHC 33.4, RDW Std Deviation 55.5 H, RDW Coeff of Kadi 16.2 H, Plt Count 386, MPV11.5, Immature Gran % (Auto) 0.300, Neut % (Auto) 39.9 L, Lymph % (Auto) 46.6 H,[place] % (Auto) 12.1 H, Eos % (Auto) 0.8, Baso % (Auto) 0.3, Absolute Neuts (auto)5.4, Absolute Lymphs (auto) 6.29 H, Nucleated RBC % 0, Platelet Estimate ADEQUATE, PT 16.2 H, INR 1.3, APTT 26.8, Sodium 136, Potassium 4.0, Chloride 99,Carbon Dioxide 23.2, Anion Gap 14, BUN 11, Creatinine 0.85, Estim Creat Clear Calc 54.29, Est GFR (MDRD) Non-Af 70, BUN/Creatinine Ratio 13.0, Glucose 102 H, Calcium 9.7, Troponin T High Sens 8 01/22/25 18:10: POC Glucose 97 Imaging Radiology Impression Brain CT 01/22/25 17:54 IMPRESSION: 1. No acute intracranial finding. 2. Findings of chronic microvascular ischemic changes and age-related changes. Reading Location: [facility] Head/Neck CTA 01/22/25 17:55 IMPRESSION: 1. No large vessel occlusion, AVM or aneurysm. 2. No stenosis of the cervical carotid arteries by NASCET criteria. Reading Location: [facility] Assessment & Plan Assessment/Plan (1) Adult BMI 34.0-34.9 kg/sq m: (2) Elevated blood pressure reading with diagnosis of hypertension: (3) Anticoagulant long-term use: (4) Vertigo of central origin: PLAN: Plan 1 acute onset of vertigo suspect transient ischemic attack?admit patient for observation to progressive care unit, neurologic checks per routine, MRI in the a.m., CBC BMP, fasting lipid panel and echocardiogram to be done in the morning,patient is already on anticoagulation therapy 2. History of atrial fibrillation patient is on Eliquis and will continue to beso 3. Hypertension?continue antihypertensive medication 4. DVT prophylaxis?continue Eliquis patient is already on Charges/Coding Visit Charges OBSV E&M: 66764 Observ/hosp same date L2 01/22/252054 <Electronically signed by Pablo Fernandes MD> Cosigner Signature (if applicable): CC: Dr. Yenifer Gonsalez MD; Dr. Pablo Fernandes MD~ Signed [facility] Work Phone: Hospital course Narrative No data available for this section [facility] Hospital Discharge instructions No data available for this section [facility] Hospital Discharge instructionsAmbulatory Orders* Physical Therapy Evaluation Location: None [facility] Work Phone: Progress note No data available for this section [facility] Reason for referral (narrative)* Diagnostic Procedure Only (Routine) - Authorized Specialty Diagnoses / Procedures Referred By Maya t Referred To Contact [facility] Diagnoses Encounter for screening mammogram for breast cancer Procedures OSMIN SCREENING SCREENING MAMMOGRAPHY BI 2-VIEW BREAST INC CAD Annette Pinto APRN.[employer] [address] [place] [address] [facility] [address] [place] [address] Referral ID Status Reason Start Date Expiration Date Visits Requested Visits Authorized [id number] Authorized Auto-Generat ed Referral 12/22/2021 01/21/[address] [facility] for referral (narrative)* Diagnostic Procedure Only (Routine) - Pending Review Specialty Diagnoses / Procedures Referred By Maya t Referred To Contact BR IMAGING Diagnoses Breast pain Procedures US BREAST LTD RT US BREAST UNI REAL TIME WITH IMAGE LIMITED Annette Pinto APRN.BEER COOLER [address] [place] [address] Br Imaging [address] [place] [address] Referral ID Status Reason Start Date Expiration Date Visits Requested Visits Authorized [id number] Pending Review Auto-Generat ed Referral 01/21/2022 02/20/2023 1 1 * Diagnostic Procedure Only (Routine) - Pending Review Specialty Diagnoses / Procedures Referred By Maya t Referred To Contact BR IMAGING Diagnoses Breast pain Procedures OSMIN DIAGNOSTIC RT DIAGNOSTIC MAMMOGRAPHY COMPUTER-AIDED DETCJ UNI Annette Pinto APRN.CNP [address] [place] [address] Br Imaging [address] [place] [address] Referral ID Status Reason Start Date Expiration Date Visits Requested Visits Authorized [id number] Pending Review Auto-Generat ed Referral 01/21/2022 02/20/[address] [facility] for referral (narrative)* Diagnostic Procedure Only (Routine) - Closed Specialty Diagnoses / Procedures Referred By Contac t Referred To Contact BR IMAGING Diagnoses Breast pain Procedures OSMIN DIAGNOSTIC RT DIAGNOSTIC MAMMOGRAPHY COMPUTER-AIDED DETCJ Annette Stanton APRN.CNP [address] [place] [address] Br Imaging [address] [place] [address] Referral ID Status Reason Start Date Expiration Date V isits Requested Visits Authorized [id number] Closed Auto-Generate d Referral 01/21/2022 02/20/[address] [facility] for referral (narrative)* Outpatient Procedure (Routine) - Authorized Specialty Diagnoses / Procedures Referred By Contac t Referred To Contact [facility] Diagnoses Cervical disc disorder with radiculopathy Bilateral carpal tunnel syndrome Procedures EMG(NEURO/NI) NERVE CONDUCTION STUDIES 9-10 STUDIES Mariangel Arteaga PA-C [address] [place] [address] [facility] [address] [place] [address] Referral ID Status Reason Start Date Expiration Date Visits Requested Visits Authorized [id number] Authorized Auto-Generat ed Referral 11/20/2022 11/20/[address] [facility] for referral (narrative)* Diagnostic Procedure Only (Routine) - Pending Review Specialty Diagnoses / Procedures Referred By Contac t Referred To Contact XR IMAGING Diagnoses Cervical disc disorder with radiculopathy Procedures XR CERV OTHER 4V AP/LAT/FLX/EXT RADEX SPINE CERVICAL 4 OR 5 VIEWS Mariangel Arteaga PA-C [address] [place] [address] Xr Imaging Referral ID Status Reason Start Date Expiration Date Visits Requested Visits Authorized [id number] Pending Review Auto-Generat ed Referral 11/20/2022 12/20/[address] [facility] for referral (narrative)* Diagnostic Procedure Only (Routine) - Closed Specialty Diagnoses / Procedures Referred By Contac t Referred To Contact XR IMAGING Diagnoses Primary osteoarthritis of both knees Procedures XR KNEE GENERAL 4V AP BOTH/PA BOTH/LAT/MERC BILATERAL RADIOLOGIC EXAM KNEE COMPLETE 4/MORE VIEWS Rhianna Moon PA-C [address] [place] [address] [place] [address] Referral ID Status Reason Start Date Expiration Date V isits Requested Visits Authorized [id number] Closed Auto-Generate d Referral 01/08/2023 02/07/[address] [facility] for referral (narrative)* Diagnostic Procedure Only (Routine) - Authorized Specialty Diagnoses / Procedures Referred By Contac t Referred To Contact XR IMAGING Diagnoses Asymptomatic postmenopausal status Procedures DXA-AXIAL SKELETON Yenifer Gonsalez MD [address] [place] [address] [place] [address] Referral ID Status Reason Start Date Expiration Date Visits Requested Visits Authorized [id number] Authorized Auto-Generat ed Referral 12/24/2023 01/22/[address] [facility] for referral (narrative)* Diagnostic Procedure Only (Urgent) - Closed Specialty Diagnoses / Procedures Referred By Contac t Referred To Contact XR IMAGING Diagnoses Injury of right wrist, initial encounter Acute pain of right wrist Procedures XR WRIST GENERAL 3V PA/LAT/OBL RIGHT RADEX WRIST COMPLETE MINIMUM 3 VIEWS Christa Cabrera, COMPUTER SUPPORT SPECIALIST.ENVIRONMENTAL ATTORNEY [address] [place] [address] [place] [address] Referral ID Status Reason Start Date Expiration Date V isits Requested Visits Authorized [id number] Closed Auto-Generate d Referral 05/19/2024 06/18/[address] [facility] for referral (narrative)* Diagnostic Procedure Only (Routine) - Closed Specialty Diagnoses / Procedures Referred By Contac t Referred To Contact XR IMAGING Diagnoses Chronic pain of both shoulders Procedures XR SHOULDER GENERAL 3V OR MORE AP/TRUE AP/OTHER RIGHT RADEX SHOULDER COMPLETE MINIMUM 2 VIEWS Yenifer Gonsalez MD [address] [place] [address] [place] [address] Referral ID Status Reason Start Date Expiration Date V isits Requested Visits Authorized [id number] Closed Auto-Generate d Referral 01/02/2023 02/01/2024 1 1 * Diagnostic Procedure Only (Routine) - Closed Specialty Diagnoses / Procedures Referred By Contac t Referred To Contact XR IMAGING Diagnoses Chronic pain of both shoulders Procedures XR SHOULDER GENERAL 3V OR MORE AP/TRUE AP/OTHER LEFT RADEX SHOULDER COMPLETE MINIMUM 2 VIEWS Yenifer Gonsalez MD [address] [place] [address] [place] [address] Referral ID Status Reason Start Date Expiration Date V isits Requested Visits Authorized [id number] Closed Auto-Generate d Referral 01/02/2023 02/01/[address] [facility] for referral (narrative)* Diagnostic Procedure Only (Routine) - Closed Specialty Diagnoses / Procedures Referred By Contac t Referred To Contact XR IMAGING Diagnoses Gait instability Balance disorder Frequent falls Procedures XR LUMBAR GENERAL 3V AP/LAT/L5-S1 RADEX SPINE LUMBOSACRAL 2/3 VIEWS Michelle Pacheco APRN.BEER COOLER [address] [place] [id number] [place] [address] Referral ID Status Reason Start Date Expiration Date V isits Requested Visits Authorized [id number] Closed Auto-Generate d Referral 05/07/2022 06/06/[address] [facility] for referral (narrative)No reason for referral information availableWFostoria [facility] Work Phone: Reason for visit Narrative* Diagnostic Procedure Only (Routine) - Closed Specialty Diagnoses / Procedures Referred By Contac t Referred To Contact BR IMAGING Diagnoses Breast pain Procedures OSMIN DIAGNOSTIC RT DIAGNOSTIC MAMMOGRAPHY COMPUTER-AIDED DETCJ Annette Stanton COMPUTER SUPPORT SPECIALIST.BEER COOLER [address] [place] [address] Br Imaging [address] [place] [address] Referral ID Status Reason Start Date Expiration Date V isits Requested Visits Authorized [id number] Closed Auto-Generate d Referral 01/21/2022 02/20/[address] [facility] for visit Narrative* Diagnostic Procedure Only (Routine) - Closed Specialty Diagnoses / Procedures Referred By Contac t Referred To Contact XR IMAGING Diagnoses Primary osteoarthritis of both knees Procedures XR KNEE GENERAL 4V AP BOTH/PA BOTH/LAT/MERC BILATERAL RADIOLOGIC EXAM KNEE COMPLETE 4/MORE VIEWS Rhianna Moon, PA-C [address] [place] [address] [place] [address] Referral ID Status Reason Start Date Expiration Date V isits Requested Visits Authorized [id number] Closed Auto-Generate d Referral 01/08/2023 02/07/[address] [facility] for visit Narrative* Diagnostic Procedure Only (Urgent) - Closed Specialty Diagnoses / Procedures Referred By Contac t Referred To Contact XR IMAGING Diagnoses Injury of right wrist, initial encounter Acute pain of right wrist Procedures XR WRIST GENERAL 3V PA/LAT/OBL RIGHT RADEX WRIST COMPLETE MINIMUM 3 VIEWS Christa Cabrera, COMPUTER SUPPORT SPECIALIST.ENVIRONMENTAL ATTORNEY [address] [place] [address] [place] [address] Referral ID Status Reason Start Date Expiration Date V isits Requested Visits Authorized [id number] Closed Auto-Generate d Referral 05/19/2024 06/18/[address] [facility] for visit Narrative* Diagnostic Procedure Only (Routine) - Closed Specialty Diagnoses / Procedures Referred By Contac t Referred To Contact XR IMAGING Diagnoses Chronic pain of both shoulders Procedures XR SHOULDER GENERAL 3V OR MORE AP/TRUE AP/OTHER RIGHT RADEX SHOULDER COMPLETE MINIMUM 2 VIEWS Yenifer Gonsalez MD [address] [place] [address] [place] [address] Referral ID Status Reason Start Date Expiration Date V isits Requested Visits Authorized [id number] Closed Auto-Generate d Referral 01/02/2023 02/01/[address] [facility] for visit Narrative* Diagnostic Procedure Only (Routine) - Closed Specialty Diagnoses / Procedures Referred By Contac t Referred To Contact XR IMAGING Diagnoses Gait instability Balance disorder Frequent falls Procedures XR LUMBAR GENERAL 3V AP/LAT/L5-S1 RADEX SPINE LUMBOSACRAL 2/3 VIEWS Michelle Pacheco, COMPUTER SUPPORT SPECIALIST.BEER COOLER [address] [place] [address] [place] [address] Referral ID Status Reason Start Date Expiration Date V isits Requested Visits Authorized [id number] Closed Auto-Generate d Referral 05/07/2022 06/06/[address] [facility] Chief Complaint and Reason for Visit Chief Complaint FALL Chief Complaint FALL lower extremity Chief Complaint lower extremity GAIT/BALANCE . 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 Hyperlipidemia Inability to walk Obesity Right homonymous superior quadrantanopia Vertigo due to acute cerebrovascular disease Chief Complaint CVA S/P TENEKTPLASE CVA S/P TENEKTPLASE CVA S/P TENEKTPLASE CVA S/P TENEKTPLASE CVA S/P TENEKTPLASE CVA S/P TENEKTPLASE CVA S/P TENEKTPLASE Reason for Visit Acute CVA (cerebrova scular accident) Acute ischemic left posterior cerebral artery ([employer]) stroke Hyperlipidemia Inability to walk Obesity Paroxysmal atrial fibrillation Right homonymous superior quadrantanopia Vertigo due to acute cerebrovascular disease Chief Complaint VERTIGO,GAIT,ALFIE OA KN/RX HERE SURG CLEARANCE AAA, DILATED AORTIC ROOT PRE-OP Reason for Visit AAA (abdominal aorti c aneurysm) without rupture Dilated aortic root Encounter for preoperative assessment for noncoronary cardiac surgery Essential hypertension Hyperlipidemia Paroxysmal atrial fibrillation Chief Complaint VERTIGO,GAIT,ALFIE OA KN/RX HERE SURG CLEARANCE AAA, DILATED AORTIC ROOT PRE-OP PRE-OP Reason for Visit AAA (abdominal aorti c aneurysm) without rupture Dilated aortic root Encounter for preoperative assessment for noncoronary cardiac surgery Essential hypertension Hyperlipidemia Paroxysmal atrial fibrillation Chief Complaint Admit Date HEAD INJURY January 12, 2025 3:5 6pm Reason for Visit Admit Date Adult BMI 34.0-34.9 kg/sq m January 22, 2025 8:22pm Anticoagulant long-term use January 22, 2025 8:22pm Elevated blood pressure read ing with diagnosis of hypertension January 22, 2025 8:22pm Hyperlipidemia January 22, 2025 8:2 2pm Vertigo of central origin January 22 8:22pm Chief Complaint Admit Date HEAD INJURY January 12, 2025 3:5 6pm TRANSIENT ISCHEMIC ATTACK January 22 8:56pm TRANSIENT ISCHEMIC ATTACK January 23 7:37am Reason for Visit Admit Date Adult BMI 34.0-34.9 kg/sq m January 22, 2025 8:56pm Anticoagulant long-term use January 22, 2025 8:56pm Elevated blood pressure read ing with diagnosis of hypertension January 22, 2025 8:56pm Hyperlipidemia January 22, 2025 8:5 6pm Vertigo of central origin January 22 8:56pm Chief Complaint Admit Date HEAD INJURY January 12, 2025 3:5 6pm TRANSIENT ISCHEMIC ATTACK January 22 8:56pm TRANSIENT ISCHEMIC ATTACK January 23 7:37am VESTIBULAR. RX HERE January 31, 2025 1:31pm Chief Complaint Admit Date HEAD INJURY January 12, 2025 3:5 6pm TRANSIENT ISCHEMIC ATTACK January 22 8:56pm TRANSIENT ISCHEMIC ATTACK January 23 7:37am VESTIBULAR. RX HERE January 31, 2025 1:31pm OVERDUE FOR OV/LAST SEEN 06/19February 16, 2025 2:58pm SYNCOPE February 26, 2025 6:33a m LIGHTHEADEDNESS March 02, 2025 2:04p m Amb Documentation March 05, 2025 8:15a m Reason for Visit Admit Date Adult BMI 34.0-34.9 kg/sq m January 22, 2025 8:56pm Anticoagulant long-term use January 22, 2025 8:56pm Elevated blood pressure read ing with diagnosis of hypertension January 22, 2025 8:56pm Hyperlipidemia January 22, 2025 8:5 6pm Vertigo of central origin January 22 8:56pm Dilated aortic root February 16, 2025 2:58p m Essential hypertension February 16, 2025 2: 58pm Hyperlipidemia February 16, 2025 2:58p m Paroxysmal atrial fibrillation February 16, 2025 2:58pm Syncope February 16, 2025 2:58p m Advance Directives No Advanced Directives Records Found Advance Directive Response Recorded Date/ Time Living Will No February 16, 2022 7 :16pm Power of Funeral Director/Embalmer No February 16, 2022 7:16pm Advance Directive Response Recorded Date/ Time Living Will No May 03, 2022 3:16am Power of Funeral Director/Embalmer No May 03 3:16am Advance Directive Response Recorded Date/ Time Living Will No May 03, 2022 2:16am Power of Funeral Director/Embalmer No May 03 2:16am Advance Directive Response Recorded Date/ Time Living Will No December 16, 2022 6:56pm Power of Funeral Director/Embalmer No December 16 6:56pm Advance Directive Response Recorded Date/ Time Name of Medical Power of Funeral Director/Embalmer Franca Orozco December 16, 2022 8:52pm Living Will No December 16, 2022 8:52pm Power of Funeral Director/Embalmer Yes December 16 8:52pm Advance Directive Response Recorded Date/ Time Living Will No February 19, 2023 7 :43am Power of Funeral Director/Embalmer Yes February 19, 2023 7:43am Advance Directive Response Recorded Date/ Time Living Will Yes January 12, 2025 5:32pm Do you have a Healthcare Power of Funeral Director/Embalmer? Yes January 12, 2025 5:32pm Name of Medical Power of Funeral Director/Embalmer DAUGHTER January 12, 2025 5:32pm Advance Directive Response Recorded Date/ Time Living Will Yes January 12, 2025 5:32pm Do you have a Healthcare Pow er of Funeral Director/Embalmer? Yes January 12, 2025 5:32pm Name of Medical Power of Funeral Director/Embalmer DAUGHTER January 12, 2025 5:32pm Do you have a Healthcare Pow er of Funeral Director/Embalmer? Yes January 22, 2025 5:42pm Name of Medical Power of Funeral Director/Embalmer gemma orozco-giselle fuentes January 22, 2025 5:42pm Advance Directive Response Recorded Date/ Time Living Will Yes January 12, 2025 5:32pm Do you have a Healthcare Pow er of Funeral Director/Embalmer? Yes January 12, 2025 5:32pm Name of Medical Power of Funeral Director/Embalmer DAUGHTER January 12, 2025 5:32pm Do you have a Healthcare Pow er of Funeral Director/Embalmer? Yes January 22, 2025 9:36pm Name of Medical Power of Funeral Director/Embalmer gemmashefali hightowerler-giselle fuentes January 22, 2025 5:42pm Reason for Referral Specialty Diagnoses / Procedures Referred By Contac t Referred To Contact [facility] Diagnoses Gait instability Balance disorder Tremor Frequent falls Procedures CONSULT TO PHYSICAL THERAPY PHYSICAL THERAPY EVALUATION HIGH COMPLEX 45 MINS Older, APRN. AnnetteBEER COOLER [address] [place] [address] [facility] [address] [place] [id number] Referral ID Status Reason Start Date Expiration Date Visits Requested Visits Authorized [id number] Pending Review Auto-Generat ed Referral 03/11/2022 03/11/2023 1 1 Specialty Diagnoses / Procedures Referred By Contac t Referred To Contact Neurology Diagnoses Gait instability Balance disorder Tremor Frequent falls Procedures CONSULT TO NEUROLOGY OFFICE/OUTPATIENT NEW HIGH MDM 60-74 MINUTES Older, APRN. AnnetteBEER COOLER [address] [place] [address] Referral ID Status Reason Start Date Expiration Date Visits Requested Visits Authorized [id number] Authorized PCP Requested Referral 03/11/2022 03/11/2023 1 1 Specialty Diagnoses / Procedures Referred By Contac t Referred To Contact [facility] Diagnoses Spinal stenosis of lumbar region, unspecified whether neurogenic claudication present Vertigo Gait instability Balance disorder Frequent falls Procedures CONSULT TO PHYSICAL THERAPY PHYSICAL THERAPY EVALUATION HIGH COMPLEX 45 MINS Michelle Pacheco, COMPUTER SUPPORT SPECIALIST.BEER COOLER [address] [place] [address] [facility] [address] [place] [address] Referral ID Status Reason Start Date Expiration Date Visits Requested Visits Authorized [id number] Pending Review Auto-Generat ed Referral 06/17/2022 06/17/2023 1 1 Specialty Diagnoses / Procedures Referred By Contac t Referred To Contact MR IMAGING Diagnoses Spinal stenosis of lumbar region, unspecified whether neurogenic claudication present Procedures MRI LUMBAR SPINE WO IVCON MRI SPINAL CANAL LUMBAR W/O CONTRAST MATERIAL Michelle Pacheco, COMPUTER SUPPORT SPECIALIST.BEER COOLER [address] [place] [address] Mr Imaging Referral ID Status Reason Start Date Expiration Date Visits Requested Visits Authorized [id number] Pending Review Auto-Generat ed Referral 06/17/2022 07/17/2023 1 1 Specialty Diagnoses / Procedures Referred By Contac t Referred To Contact [facility] Diagnoses Lumbar disc disease Procedures CONSULT TO [facility] OFFICE/OUTPATIENT NEW [facility] MDM 60-74 MINUTES Baldemar Bush, COMPUTER SUPPORT SPECIALIST.BEER COOLER [address] [facility] [id number] [place] [address] Referral ID Status Reason Start Date Expiration Date Visits Requested Visits Authorized [id number] Authorized PCP Requested Referral 07/16/2023 1 1 Referral ID Status Reason Start Date Expiration Date V isits Requested Visits Authorized [id number] Closed Auto-Generate d Referral 06/17/2022 07/17/2023 1 1 Specialty Diagnoses / Procedures Referred By Contac t Referred To Contact MR IMAGING Diagnoses Thoracic spondylosis without myelopathy Procedures MRI THORACIC SPINE WO IVCON MRI SPINAL CANAL THORACIC W/O CONTRAST Mariangel Jerry PA-C [address] [place] [address] Mr Imaging Referral ID Status Reason Start Date Expiration Date Visits Requested Visits Authorized [id number] Pending Review Auto-Generat ed Referral 09/04/2022 10/04/2023 1 1 Specialty Diagnoses / Procedures Referred By Contac t Referred To Contact MR IMAGING Diagnoses Spinal stenosis of cervical region Procedures MRI CERVICAL SPINE WO IVCON MRI SPINAL CANAL CERVICAL W/O CONTRAST MATRL Mariangel Arteaga PA-C [address] [place] [address] Mr Imaging Referral ID Status Reason Start Date Expiration Date Visits Requested Visits Authorized [id number] Pending Review Auto-Generat ed Referral 09/04/2022 10/04/2023 1 1 Specialty Diagnoses / Procedures Referred By Contac t Referred To Contact XR IMAGING Diagnoses Spinal stenosis of cervical region Procedures XR CERV OTHER 4V AP/LAT/FLX/EXT RADEX SPINE CERVICAL 4 OR 5 VIEWS Mariangel Arteaga PA-C [address] [place] [address] Xr Imaging Referral ID Status Reason Start Date Expiration Date Visits Requested Visits Authorized [id number] Pending Review Auto-Generat ed Referral 09/04/2022 10/04/2023 1 1 Specialty Diagnoses / Procedures Referred By Contac t Referred To Contact [facility] Diagnoses Compression fracture of L1 vertebra with routine healing, subsequent encounter Lumbar radiculopathy Chronic bilateral low back pain with bilateral sciatica Procedures CONSULT TO PHYSICAL THERAPY PHYSICAL THERAPY EVALUATION HIGH COMPLEX 45 MINS Yenifer Gonsalez MD [address] [place] [address] [facility] [address] [place] [address] Referral ID Status Reason Start Date Expiration Date Visits Requested Visits Authorized [id number] Pending Review Auto-Generat ed Referral 08/28/2022 08/28/2023 1 1 Specialty Diagnoses / Procedures Referred By Maya t Referred To Contact Ophthalmology Diagnoses Controlled type 2 diabetes mellitus without complication, without long-term current use of insulin (HCC) Eyelid pain of both eyes Dry eye syndrome of both eyes Procedures CONSULT TO OPHTHALMOLOGY OFFICE/OUTPATIENT NEW [facility] MDM 60-74 MINUTES Yenifer Gonsalez MD [address] [place] [address] Referral ID Status Reason Start Date Expiration Date Visits Requested Visits Authorized [id number] Authorized PCP Requested Referral 08/28/2022 08/28/2023 1 1 Specialty Diagnoses / Procedures Referred By Contac t Referred To Contact [facility] Diagnoses Compression fracture of L1 vertebra with routine healing, subsequent encounter Lumbar radiculopathy Chronic bilateral low back pain with bilateral sciatica Procedures PT REHAB FOLLOW UP ORDER THERAPEUTIC EXERCISES RE, EA 15 MIN. Pt [facility] [address] [place] [address] [facility] [address] [place] [address] Referral ID Status Reason Start Date Expiration Date Visits Requested Visits Authorized [id number] Pending Review PCP Requested Referral Auto-Generate d Referral 11/04/2022 02/02/2023 1 1 Specialty Diagnoses / Procedures Referred By Contac t Referred To Contact Orthopedics Diagnoses Chronic pain of both shoulders Bilateral primary osteoarthritis of knee Procedures CONSULT TO ORTHOPAEDICS Yenifer Gonsalez MD [address] [place] [address] Chrissy Qiu DO [address] [place] [address] Referral ID Status Reason Start Date Expiration Date Visits Requested Visits Authorized [id number] Ref Not Required PCP Requested Referral 01/02/2023 01/02/2024 1 1 Specialty Diagnoses / Procedures Referred By Contac t Referred To Contact XR IMAGING Diagnoses Chronic pain of both shoulders Procedures XR SHOULDER GENERAL 3V OR MORE AP/TRUE AP/OTHER RIGHT RADEX SHOULDER COMPLETE MINIMUM 2 VIEWS Yenifer Gonsalez MD [address] [place] [address] Xr Imaging Referral ID Status Reason Start Date Expiration Date V isits Requested Visits Authorized [id number] Closed Auto-Generate d Referral 01/02/2023 02/01/2024 1 1 Specialty Diagnoses / Procedures Referred By Contac t Referred To Contact XR IMAGING Diagnoses Chronic pain of both shoulders Procedures XR SHOULDER GENERAL 3V OR MORE AP/TRUE AP/OTHER LEFT RADEX SHOULDER COMPLETE MINIMUM 2 VIEWS Yenifer Gonsalez MD [address] [place] [address] Xr Imaging Referral ID Status Reason Start Date Expiration Date V isits Requested Visits Authorized [id number] Closed Auto-Generate d Referral 01/02/2023 02/01/2024 1 1 Specialty Diagnoses / Procedures Referred By Contac t Referred To Contact [facility] Diagnoses Vertigo Gait instability Bilateral primary osteoarthritis of knee Procedures CONSULT TO PHYSICAL THERAPY PHYSICAL THERAPY EVALUATION HIGH COMPLEX 45 MINS Yenifer Gonsalez MD [address] [place] [address] [facility] [address] [place] [address] Referral ID Status Reason Start Date Expiration Date Visits Requested Visits Authorized [id number] Pending Review Auto-Generat ed Referral 02/26/2023 02/26/2024 1 1 Specialty Diagnoses / Procedures Referred By Contac t Referred To Contact MR IMAGING Diagnoses Spinal stenosis of cervical region Procedures MRI CERVICAL SPINE WO IVCON MRI SPINAL CANAL CERVICAL W/O CONTRAST Mariangel Jerry PA-Pam [address] [place] [id number] Mr Imaging [place] [address] Referral ID Status Reason Start Date Expiration Date V isits Requested Visits Authorized [id number] Closed Auto-Generate d Referral 10/19/2022 10/04/2023 1 1 Specialty Diagnoses / Procedures Referred By Contac t Referred To Contact MR IMAGING Diagnoses Thoracic spondylosis without myelopathy Procedures MRI THORACIC SPINE WO IVCON MRI SPINAL CANAL THORACIC W/O CONTRAST SHAKIRL Mariangel Arteaga PA-Pam [address] [place] [address] Mr Imaging [id number] Referral ID Status Reason Start Date Expiration Date V isits Requested Visits Authorized [id number] Closed Auto-Generate d Referral 10/19/2022 12/18/2022 1 1 Specialty Diagnoses / Procedures Referred By Contac t Referred To Contact Orthopedics Diagnoses Injury of right wrist, initial encounter Acute pain of right wrist Procedures CONSULT TO ORTHOPAEDICS OFFICE/OUTPATIENT [facility] MDM 60 MINUTES Christa Cabrera, COMPUTER SUPPORT SPECIALIST.ENVIRONMENTAL ATTORNEY [address] [place] [address] Referral ID Status Reason Start Date Expiration Date Visits Requested Visits Authorized [id number] Authorized PCP Requested Referral 05/19/2024 05/19/2025 1 1 Specialty Diagnoses / Procedures Referred By Contac t Referred To Contact XR IMAGING Diagnoses Injury of right wrist, initial encounter Acute pain of right wrist Procedures XR WRIST GENERAL 3V PA/LAT/OBL RIGHT RADEX WRIST COMPLETE MINIMUM 3 VIEWS Christa Cabrera, COMPUTER SUPPORT SPECIALIST.ENVIRONMENTAL ATTORNEY [address] [place] [address] [place] [address] Referral ID Status Reason Start Date Expiration Date V isits Requested Visits Authorized [id number] Closed Auto-Generate d Referral 05/19/2024 06/18/2025 1 1 Specialty Diagnoses / Procedures Referred By Contac t Referred To Contact MR IMAGING Diagnoses Transient cerebral ischemia, unspecified type Procedures MRI BRAIN WO IVCON MRI BRAIN BRAIN STEM W/O CONTRAST MATERIAL Michelle Pacheco, COMPUTER SUPPORT SPECIALIST.BEER COOLER [address] [place] [address] [place] [address] Referral ID Status Reason Start Date Expiration Date V isits Requested Visits Authorized [id number] Closed Auto-Generate d Referral 05/07/2022 06/06/2023 1 1 Summary Purpose Family History Relationship Condition Age at Onset Recorded Date/T tristan daughter Hypertension Unknown father Cardiac disease Unknown mother Dementia Unknown No Family History Records Found Medications Administered Section Inactive Administered Medications - up to 3 most recent administrations Medication Order MAR Action Action Date Dose Rate Site tropicamide 1 % 1 Drop (MYDRIACYL) 1 Drop, BOTH EYES, ONCE, 1 dose, On Wed10/02/22 at 1300, FOR THE EYE Given 10/02/2022 1:00 PM EST 1 Drop Inactive Administered Medications - up to 3 most recent administrations Medication Order MAR Action Action Date Dose Rate Site betamethasone acetate-betamethasone sodium phosphate 6 mg injection (CELESTONE) 6 mg, Injection - FOR ORTHO USE ONLY, ONE TIME INJECTION, 1 dose, Starting on Wed05/17/23 at 1235, Until Wed05/17/23 at 1235 Given 05/17/2023 12:35 PM EDT 6 mg Knee, Left betamethasone acetate-betamethasone sodium phosphate 6 mg injection (CELESTONE) 6 mg, Injection - FOR ORTHO USE ONLY, ONE TIME INJECTION, 1 dose, Starting on Wed05/17/23 at 1235, Until Wed05/17/23 at 1235 Given 05/17/2023 12:35 PM EDT 6 mg Knee, Right lidocaine (PF) 10 mg/mL (1 %) 5 mL injection (XYLOCAINE) 5 mL, Injection - FOR ORTHO USE ONLY, ONE TIME INJECTION, 1 dose, Starting on Wed05/17/23 at 1235, Until Wed05/17/23 at 1235 Given 05/17/2023 12:35 PM EDT 5 mL Knee, Left lidocaine (PF) 10 mg/mL (1 %) 5 mL injection (XYLOCAINE) 5 mL, Injection - FOR ORTHO USE ONLY, ONE TIME INJECTION, 1 dose, Starting on Wed05/17/23 at 1235, Until Wed05/17/23 at 1235 Given 05/17/2023 12:35 PM EDT 5 mL Knee, Right Additional Source Comments Source Comments (unrecognize d section and content) In the event this informatio n is protected by the Federal Confidentiality of Alcohol and Drug Abuse Patient Records regulations: The Federal rules restrict any use of the information to criminally investigate or prosecute any alcohol or drug abuse patient.[facility]In the event this information is protected by the Federal Confidentiality of Alcohol and Drug Abuse Patient Records regulations: The Federal rules restrict any use of the information to criminally investigate or prosecute any alcohol or drug abuse patient.[facility]In the event this information is protected by the Federal Confidentiality of Alcohol and Drug Abuse Patient Records regulations: The Federal rules restrict any use of the information to criminally investigate or prosecute any alcohol or drug abuse patient.[facility]In the event this information is protected by the Federal Confidentiality of Alcohol and Drug Abuse Patient Records regulations: The Federal rules restrict any use of the information to criminally investigate or prosecute any alcohol or drug abuse patient.[facility] [place] [facility]In the event this information is protected by the Federal Confidentiality of Alcohol and Drug Abuse Patient Records regulations: The Federal rules restrict any use of the information to criminally investigate or prosecute any alcohol or drug abuse patient.[facility] [place] [facility]In the event this information is protected by the Federal Confidentiality of Alcohol and Drug Abuse Patient Records regulations: The Federal rules restrict any use of the information to criminally investigate or prosecute any alcohol or drug abuse patient.[facility] [place] [facility]In the event this information is protected by the Federal Confidentiality of Alcohol and Drug Abuse Patient Records regulations: The Federal rules restrict any use of the information to criminally investigate or prosecute any alcohol or drug abuse patient.[facility] [place] [facility]In the event this information is protected by the Federal Confidentiality of Alcohol and Drug Abuse Patient Records regulations: The Federal rules restrict any use of the information to criminally investigate or prosecute any alcohol or drug abuse patient.[facility] [place] CampusIn the event this information is protected by the Federal Confidentiality of Alcohol and Drug Abuse Patient Records regulations: The Federal rules restrict any use of the information to criminally investigate or prosecute any alcohol or drug abuse patient.[facility] [place] CampusIn the event this information is protected by the Federal Confidentiality of Alcohol and Drug Abuse Patient Records regulations: The Federal rules restrict any use of the information to criminally investigate or prosecute any alcohol or drug abuse patient.[facility] [place] CampusIn the event this information is protected by the Federal Confidentiality of Alcohol and Drug Abuse Patient Records regulations: The Federal rules restrict any use of the information to criminally investigate or prosecute any alcohol or drug abuse patient.[facility] [place] CampusIn the event this information is protected by the Federal Confidentiality of Alcohol and Drug Abuse Patient Records regulations: The Federal rules restrict any use of the information to criminally investigate or prosecute any alcohol or drug abuse patient.[facility] [place] CampusIn the event this information is protected by the Federal Confidentiality of Alcohol and Drug Abuse Patient Records regulations: The Federal rules restrict any use of the information to criminally investigate or prosecute any alcohol or drug abuse patient.[facility] [place] CampusIn the event this information is protected by the Federal Confidentiality of Alcohol and Drug Abuse Patient Records regulations: The Federal rules restrict any use of the information to criminally investigate or prosecute any alcohol or drug abuse patient.[facility] [place] CampusIn the event this information is protected by the Federal Confidentiality of Alcohol and Drug Abuse Patient Records regulations: The Federal rules restrict any use of the information to criminally investigate or prosecute any alcohol or drug abuse patient.[facility] [place] CampusIn the event this information is protected by the Federal Confidentiality of Alcohol and Drug Abuse Patient Records regulations: The Federal rules restrict any use of the information to criminally investigate or prosecute any alcohol or drug abuse patient.[facility] [place] CampusIn the event this information is protected by the Federal Confidentiality of Alcohol and Drug Abuse Patient Records regulations: The Federal rules restrict any use of the information to criminally investigate or prosecute any alcohol or drug abuse patient.[facility] [place] CampusIn the event this information is protected by the Federal Confidentiality of Alcohol and Drug Abuse Patient Records regulations: The Federal rules restrict any use of the information to criminally investigate or prosecute any alcohol or drug abuse patient.[facility] [place] CampusIn the event this information is protected by the Federal Confidentiality of Alcohol and Drug Abuse Patient Records regulations: The Federal rules restrict any use of the information to criminally investigate or prosecute any alcohol or drug abuse patient.[facility] [place] CampusIn the event this information is protected by the Federal Confidentiality of Alcohol and Drug Abuse Patient Records regulations: The Federal rules restrict any use of the information to criminally investigate or prosecute any alcohol or drug abuse patient.[facility] [place] CampusIn the event this information is protected by the Federal Confidentiality of Alcohol and Drug Abuse Patient Records regulations: The Federal rules restrict any use of the information to criminally investigate or prosecute any alcohol or drug abuse patient.[facility] [place] CampusIn the event this information is protected by the Federal Confidentiality of Alcohol and Drug Abuse Patient Records regulations: The Federal rules restrict any use of the information to criminally investigate or prosecute any alcohol or drug abuse patient.[facility] [place] CampusIn the event this information is protected by the Federal Confidentiality of Alcohol and Drug Abuse Patient Records regulations: The Federal rules restrict any use of the information to criminally investigate or prosecute any alcohol or drug abuse patient.[facility] [place] CampusIn the event this information is protected by the Federal Confidentiality of Alcohol and Drug Abuse Patient Records regulations: The Federal rules restrict any use of the information to criminally investigate or prosecute any alcohol or drug abuse patient.[facility] [place] CampusIn the event this information is protected by the Federal Confidentiality of Alcohol and Drug Abuse Patient Records regulations: The Federal rules restrict any use of the information to criminally investigate or prosecute any alcohol or drug abuse patient.[facility] [place] CampusIn the event this information is protected by the Federal Confidentiality of Alcohol and Drug Abuse Patient Records regulations: The Federal rules restrict any use of the information to criminally investigate or prosecute any alcohol or drug abuse patient.[facility] [place] CampusIn the event this information is protected by the Federal Confidentiality of Alcohol and Drug Abuse Patient Records regulations: The Federal rules restrict any use of the information to criminally investigate or prosecute any alcohol or drug abuse patient.[facility] [place] CampusIn the event this information is protected by the Federal Confidentiality of Alcohol and Drug Abuse Patient Records regulations: The Federal rules restrict any use of the information to criminally investigate or prosecute any alcohol or drug abuse patient.[facility] [place] CampusIn the event this information is protected by the Federal Confidentiality of Alcohol and Drug Abuse Patient Records regulations: The Federal rules restrict any use of the information to criminally investigate or prosecute any alcohol or drug abuse patient.[facility] [place] CampusIn the event this information is protected by the Federal Confidentiality of Alcohol and Drug Abuse Patient Records regulations: The Federal rules restrict any use of the information to criminally investigate or prosecute any alcohol or drug abuse patient.[facility] [place] CampusIn the event this information is protected by the Federal Confidentiality of Alcohol and Drug Abuse Patient Records regulations: The Federal rules restrict any use of the information to criminally investigate or prosecute any alcohol or drug abuse patient.[facility] [place] CampusIn the event this information is protected by the Federal Confidentiality of Alcohol and Drug Abuse Patient Records regulations: The Federal rules restrict any use of the information to criminally investigate or prosecute any alcohol or drug abuse patient.[facility] [place] CampusIn the event this information is protected by the Federal Confidentiality of Alcohol and Drug Abuse Patient Records regulations: The Federal rules restrict any use of the information to criminally investigate or prosecute any alcohol or drug abuse patient.[facility] [place] CampusIn the event this information is protected by the Federal Confidentiality of Alcohol and Drug Abuse Patient Records regulations: The Federal rules restrict any use of the information to criminally investigate or prosecute any alcohol or drug abuse patient.[facility] [place] CampusIn the event this information is protected by the Federal Confidentiality of Alcohol and Drug Abuse Patient Records regulations: The Federal rules restrict any use of the information to criminally investigate or prosecute any alcohol or drug abuse patient.[facility] [place] CampusIn the event this information is protected by the Federal Confidentiality of Alcohol and Drug Abuse Patient Records regulations: The Federal rules restrict any use of the information to criminally investigate or prosecute any alcohol or drug abuse patient.[facility] [place] CampusIn the event this information is protected by the Federal Confidentiality of Alcohol and Drug Abuse Patient Records regulations: The Federal rules restrict any use of the information to criminally investigate or prosecute any alcohol or drug abuse patient.[facility] [place] CampusIn the event this information is protected by the Federal Confidentiality of Alcohol and Drug Abuse Patient Records regulations: The Federal rules restrict any use of the information to criminally investigate or prosecute any alcohol or drug abuse patient.[facility] [place] CampusIn the event this information is protected by the Federal Confidentiality of Alcohol and Drug Abuse Patient Records regulations: The Federal rules restrict any use of the information to criminally investigate or prosecute any alcohol or drug abuse patient.[facility] [place] CampusIn the event this information is protected by the Federal Confidentiality of Alcohol and Drug Abuse Patient Records regulations: The Federal rules restrict any use of the information to criminally investigate or prosecute any alcohol or drug abuse patient.[facility] [place] CampusIn the event this information is protected by the Federal Confidentiality of Alcohol and Drug Abuse Patient Records regulations: The Federal rules restrict any use of the information to criminally investigate or prosecute any alcohol or drug abuse patient.[facility] [place] CampusIn the event this information is protected by the Federal Confidentiality of Alcohol and Drug Abuse Patient Records regulations: The Federal rules restrict any use of the information to criminally investigate or prosecute any alcohol or drug abuse patient.[facility] [place] CampusIn the event this information is protected by the Federal Confidentiality of Alcohol and Drug Abuse Patient Records regulations: The Federal rules restrict any use of the information to criminally investigate or prosecute any alcohol or drug abuse patient.[facility] [place] CampusIn the event this information is protected by the Federal Confidentiality of Alcohol and Drug Abuse Patient Records regulations: The Federal rules restrict any use of the information to criminally investigate or prosecute any alcohol or drug abuse patient.[facility] [place] CampusIn the event this information is protected by the Federal Confidentiality of Alcohol and Drug Abuse Patient Records regulations: The Federal rules restrict any use of the information to criminally investigate or prosecute any alcohol or drug abuse patient.[facility] [place] CampusIn the event this information is protected by the Federal Confidentiality of Alcohol and Drug Abuse Patient Records regulations: The Federal rules restrict any use of the information to criminally investigate or prosecute any alcohol or drug abuse patient.[facility] [place] CampusIn the event this information is protected by the Federal Confidentiality of Alcohol and Drug Abuse Patient Records regulations: The Federal rules restrict any use of the information to criminally investigate or prosecute any alcohol or drug abuse patient.[facility] [place] CampusIn the event this information is protected by the Federal Confidentiality of Alcohol and Drug Abuse Patient Records regulations: The Federal rules restrict any use of the information to criminally investigate or prosecute any alcohol or drug abuse patient.[facility] [place] CampusIn the event this information is protected by the Federal Confidentiality of Alcohol and Drug Abuse Patient Records regulations: The Federal rules restrict any use of the information to criminally investigate or prosecute any alcohol or drug abuse patient.[facility] [place] CampusIn the event this information is protected by the Federal Confidentiality of Alcohol and Drug Abuse Patient Records regulations: The Federal rules restrict any use of the information to criminally investigate or prosecute any alcohol or drug abuse patient.[facility] [place] CampusIn the event this information is protected by the Federal Confidentiality of Alcohol and Drug Abuse Patient Records regulations: The Federal rules restrict any use of the information to criminally investigate or prosecute any alcohol or drug abuse patient.[facility] [place] CampusIn the event this information is protected by the Federal Confidentiality of Alcohol and Drug Abuse Patient Records regulations: The Federal rules restrict any use of the information to criminally investigate or prosecute any alcohol or drug abuse patient.[facility] [place] CampusIn the event this information is protected by the Federal Confidentiality of Alcohol and Drug Abuse Patient Records regulations: The Federal rules restrict any use of the information to criminally investigate or prosecute any alcohol or drug abuse patient.[facility] [place] CampusIn the event this information is protected by the Federal Confidentiality of Alcohol and Drug Abuse Patient Records regulations: The Federal rules restrict any use of the information to criminally investigate or prosecute any alcohol or drug abuse patient.[facility] [place] CampusIn the event this information is protected by the Federal Confidentiality of Alcohol and Drug Abuse Patient Records regulations: The Federal rules restrict any use of the information to criminally investigate or prosecute any alcohol or drug abuse patient.[facility] [place] CampusIn the event this information is protected by the Federal Confidentiality of Alcohol and Drug Abuse Patient Records regulations: The Federal rules restrict any use of the information to criminally investigate or prosecute any alcohol or drug abuse patient.[facility] [place] CampusIn the event this information is protected by the Federal Confidentiality of Alcohol and Drug Abuse Patient Records regulations: The Federal rules restrict any use of the information to criminally investigate or prosecute any alcohol or drug abuse patient.[facility] [place] CampusIn the event this information is protected by the Federal Confidentiality of Alcohol and Drug Abuse Patient Records regulations: The Federal rules restrict any use of the information to criminally investigate or prosecute any alcohol or drug abuse patient.[facility] [place] CampusIn the event this information is protected by the Federal Confidentiality of Alcohol and Drug Abuse Patient Records regulations: The Federal rules restrict any use of the information to criminally investigate or prosecute any alcohol or drug abuse patient.[facility] [place] CampusIn the event this information is protected by the Federal Confidentiality of Alcohol and Drug Abuse Patient Records regulations: The Federal rules restrict any use of the information to criminally investigate or prosecute any alcohol or drug abuse patient.[facility] [place] CampusIn the event this information is protected by the Federal Confidentiality of Alcohol and Drug Abuse Patient Records regulations: The Federal rules restrict any use of the information to criminally investigate or prosecute any alcohol or drug abuse patient.[facility] [place] CampusIn the event this information is protected by the Federal Confidentiality of Alcohol and Drug Abuse Patient Records regulations: The Federal rules restrict any use of the information to criminally investigate or prosecute any alcohol or drug abuse patient.[facility] [place] CampusIn the event this information is protected by the Federal Confidentiality of Alcohol and Drug Abuse Patient Records regulations: The Federal rules restrict any use of the information to criminally investigate or prosecute any alcohol or drug abuse patient.[facility] [place] CampusIn the event this information is protected by the Federal Confidentiality of Alcohol and Drug Abuse Patient Records regulations: The Federal rules restrict any use of the information to criminally investigate or prosecute any alcohol or drug abuse patient.[facility] [place] CampusIn the event this information is protected by the Federal Confidentiality of Alcohol and Drug Abuse Patient Records regulations: The Federal rules restrict any use of the information to criminally investigate or prosecute any alcohol or drug abuse patient.[facility] [place] CampusIn the event this information is protected by the Federal Confidentiality of Alcohol and Drug Abuse Patient Records regulations: The Federal rules restrict any use of the information to criminally investigate or prosecute any alcohol or drug abuse patient.[facility] [place] CampusIn the event this information is protected by the Federal Confidentiality of Alcohol and Drug Abuse Patient Records regulations: The Federal rules restrict any use of the information to criminally investigate or prosecute any alcohol or drug abuse patient.[facility] [place] CampusIn the event this information is protected by the Federal Confidentiality of Alcohol and Drug Abuse Patient Records regulations: The Federal rules restrict any use of the information to criminally investigate or prosecute any alcohol or drug abuse patient.[facility] [place] CampusIn the event this information is protected by the Federal Confidentiality of Alcohol and Drug Abuse Patient Records regulations: The Federal rules restrict any use of the information to criminally investigate or prosecute any alcohol or drug abuse patient.[facility] [place] CampusIn the event this information is protected by the Federal Confidentiality of Alcohol and Drug Abuse Patient Records regulations: The Federal rules restrict any use of the information to criminally investigate or prosecute any alcohol or drug abuse patient.[facility] [place] CampusIn the event this information is protected by the Federal Confidentiality of Alcohol and Drug Abuse Patient Records regulations: The Federal rules restrict any use of the information to criminally investigate or prosecute any alcohol or drug abuse patient.[facility] [place] CampusIn the event this information is protected by the Federal Confidentiality of Alcohol and Drug Abuse Patient Records regulations: The Federal rules restrict any use of the information to criminally investigate or prosecute any alcohol or drug abuse patient.[facility] CampusIn the event this information is protected by the Federal Confidentiality of Alcohol and Drug Abuse Patient Records regulations: The Federal rules restrict any use of the information to criminally investigate or prosecute any alcohol or drug abuse patient.[facility] CampusIn the event this information is protected by the Federal Confidentiality of Alcohol and Drug Abuse Patient Records regulations: The Federal rules restrict any use of the information to criminally investigate or prosecute any alcohol or drug abuse patient.[facility] CampusIn the event this information is protected by the Federal Confidentiality of Alcohol and Drug Abuse Patient Records regulations: The Federal rules restrict any use of the information to criminally investigate or prosecute any alcohol or drug abuse patient.[facility] CampusIn the event this information is protected by the Federal Confidentiality of Alcohol and Drug Abuse Patient Records regulations: The Federal rules restrict any use of the information to criminally investigate or prosecute any alcohol or drug abuse patient.[facility] CampusIn the event this information is protected by the Federal Confidentiality of Alcohol and Drug Abuse Patient Records regulations: The Federal rules restrict any use of the information to criminally investigate or prosecute any alcohol or drug abuse patient.[facility] [place] CampusIn the event this information is protected by the Federal Confidentiality of Alcohol and Drug Abuse Patient Records regulations: The Federal rules restrict any use of the information to criminally investigate or prosecute any alcohol or drug abuse patient.[facility] [place] CampusIn the event this information is protected by the Federal Confidentiality of Alcohol and Drug Abuse Patient Records regulations: The Federal rules restrict any use of the information to criminally investigate or prosecute any alcohol or drug abuse patient.[facility] [place] CampusIn the event this information is protected by the Federal Confidentiality of Alcohol and Drug Abuse Patient Records regulations: The Federal rules restrict any use of the information to criminally investigate or prosecute any alcohol or drug abuse patient.[facility] [place] CampusIn the event this information is protected by the Federal Confidentiality of Alcohol and Drug Abuse Patient Records regulations: The Federal rules restrict any use of the information to criminally investigate or prosecute any alcohol or drug abuse patient.[facility] [place] CampusIn the event this information is protected by the Federal Confidentiality of Alcohol and Drug Abuse Patient Records regulations: The Federal rules restrict any use of the information to criminally investigate or prosecute any alcohol or drug abuse patient.[facility] [place] CampusIn the event this information is protected by the Federal Confidentiality of Alcohol and Drug Abuse Patient Records regulations: The Federal rules restrict any use of the information to criminally investigate or prosecute any alcohol or drug abuse patient.[facility] [place] CampusIn the event this information is protected by the Federal Confidentiality of Alcohol and Drug Abuse Patient Records regulations: The Federal rules restrict any use of the information to criminally investigate or prosecute any alcohol or drug abuse patient.[facility] [place] CampusIn the event this information is protected by the Federal Confidentiality of Alcohol and Drug Abuse Patient Records regulations: The Federal rules restrict any use of the information to criminally investigate or prosecute any alcohol or drug abuse patient.[facility] [place] CampusIn the event this information is protected by the Federal Confidentiality of Alcohol and Drug Abuse Patient Records regulations: The Federal rules restrict any use of the information to criminally investigate or prosecute any alcohol or drug abuse patient.[facility] [place] CampusIn the event this information is protected by the Federal Confidentiality of Alcohol and Drug Abuse Patient Records regulations: The Federal rules restrict any use of the information to criminally investigate or prosecute any alcohol or drug abuse patient.[facility] [place] CampusIn the event this information is protected by the Federal Confidentiality of Alcohol and Drug Abuse Patient Records regulations: The Federal rules restrict any use of the information to criminally investigate or prosecute any alcohol or drug abuse patient.[facility] [place] CampusIn the event this information is protected by the Federal Confidentiality of Alcohol and Drug Abuse Patient Records regulations: The Federal rules restrict any use of the information to criminally investigate or prosecute any alcohol or drug abuse patient.[facility] [place] CampusIn the event this information is protected by the Federal Confidentiality of Alcohol and Drug Abuse Patient Records regulations: The Federal rules restrict any use of the information to criminally investigate or prosecute any alcohol or drug abuse patient.[facility] [place] CampusIn the event this information is protected by the Federal Confidentiality of Alcohol and Drug Abuse Patient Records regulations: The Federal rules restrict any use of the information to criminally investigate or prosecute any alcohol or drug abuse patient.[facility] [place] CampusIn the event this information is protected by the Federal Confidentiality of Alcohol and Drug Abuse Patient Records regulations: The Federal rules restrict any use of the information to criminally investigate or prosecute any alcohol or drug abuse patient.[facility] [place] [facility] Reason for Visit (unrecogniz ed section and content) Reason Comments F/U 6 months Reason Comments Allied Health Visit Medication Adherence Outreach Reason Comments Bone density order Reason Comments Prescription Refills Reason Onset Date Comments Refill Request 01/20/2022 Reason Comments Return Provider Call Reason Comments Insurance Authorization for prescription Reason Onset Date Comments Orders 01/29/2022 replace her CPAP machine Reason Comments Orders Reason Comments difficulty walking Reason Comments Radiology US Specialty Diagnoses / Procedures Referred By Maya t Referred To Contact [facility] Diagnoses Breast pain Procedures US BREAST LTD RT US BREAST UNI REAL TIME WITH IMAGE LIMITED Annette Pinto APRN.BEER COOLER [address] [place] [address] [facility] [address] [place] [address] Referral ID Status Reason Start Date Expiration Date V isits Requested Visits Authorized [id number] Closed Auto-Generate d Referral 01/21/2022 02/20/2023 1 1 Reason Onset Date Comments Allied Health Visit 04/27/2022 Medication A dherence Outreach Reason Onset Date Comments Allied Health Visit 05/01/2022 Medication A dherence Outreach Reason Comments Orders MRI Reason Onset Date Comments Refill Request 05/11/2022 Reason Comments Patient Question Reason Onset Date Comments Allied Health Visit 06/11/2022 Medication A dherence Outreach Reason Comments Gait Problem Reason Comments F/U 6 months Reason Onset Date Comments Population Health Navigation Outreach 06/26/2022 [employer] Care Gaps Reason Comments Difficulty Walking Reason Comments Physical Therapy Specialty Diagnoses / Procedures Referred By Contac t Referred To Contact [facility] Diagnoses Spinal stenosis of lumbar region, unspecified whether neurogenic claudication present Vertigo Gait instability Balance disorder Frequent falls Procedures CONSULT TO PHYSICAL THERAPY PHYSICAL THERAPY EVALUATION HIGH COMPLEX 45 MINS THERAPEUTIC EXERCISES RE, EA 15 MIN. Michelle Pacheco, COMPUTER SUPPORT SPECIALIST.BE[employer] [address] [place] [address] [facility] [address] [place] [address] Referral ID Status Reason Start Date Expiration Date Visits Requested Visits Authorized [id number] Authorized Auto-Generat ed Referral 09/27/2021 09/26/2022 99 99 Specialty Diagnoses / Procedures Referred By Contac t Referred To Contact [facility] Diagnoses Spinal stenosis of lumbar region, unspecified whether neurogenic claudication present Procedures MRI LUMBAR SPINE WO IVCON MRI SPINAL CANAL LUMBAR W/O CONTRAST MATERIAL Michelle Pacheco, COMPUTER SUPPORT SPECIALIST.[employer] [address] [place] [address] [facility] Referral ID Status Reason Start Date Expiration Date V isits Requested Visits Authorized [id number] Closed Auto-Generate d Referral 06/17/2022 07/17/2023 1 1 Reason Onset Date Comments Refill Request 08/28/2022 Reason Comments New Patient Specialty Diagnoses / Procedures Referred By Contac t Referred To Contact [facility] Diagnoses Lumbar disc disease Procedures CONSULT TO [facility] OFFICE/OUTPATIENT NEW HIGH MDM 60-74 MINUTES Baldemar Bush, COMPUTER SUPPORT SPECIALIST.BEER COOLER [address] [facility] [id number] [place] [address] Referral ID Status Reason Start Date Expiration Date V isits Requested Visits Authorized [id number] Closed PCP Requested Referral 07/16/2022 07/16/2023 1 1 Reason Comments Patient Update Appointment Reason Comments Follow Up Reports arthritis pa in t/o but reports as her normal everyday pain. Reporting foul urine smell. Reason Comments Eye Itching Both Eyes Diabetic Eye Exam Specialty Diagnoses / Procedures Referred By Maya rizzo Referred To Contact Ophthalmology Diagnoses Controlled type 2 diabetes mellitus without complication, without long-term current use of insulin (HCC) Eyelid pain of both eyes Dry eye syndrome of both eyes Procedures CONSULT TO OPHTHALMOLOGY OFFICE/OUTPATIENT NEW HIGH MDM 60-74 MINUTES Yenifer Gonsalez MD [address] [place] [address] Referral ID Status Reason Start Date Expiration Date V isits Requested Visits Authorized [id number] Closed PCP Requested Referral 08/28/2022 08/28/2023 1 1 Reason Onset Date Comments Population Health Navigation Outreach 10/05/2022 [facility] PCSA Reason Comments Results Reason Comments PT Eval Specialty Diagnoses / Procedures Referred By Maya rizzo Referred To Contact [facility] Diagnoses Compression fracture of L1 vertebra with routine healing, subsequent encounter Lumbar radiculopathy Chronic bilateral low back pain with bilateral sciatica Procedures CONSULT TO PHYSICAL THERAPY PHYSICAL THERAPY EVALUATION HIGH COMPLEX 45 MINS Yenifer Gonsalez MD [address] [place] [address] [facility] [address] [place] [address] Referral ID Status Reason Start Date Expiration Date Visits Requested Visits Authorized [id number] Pending Review Auto-Generat ed Referral 08/28/2022 08/28/2023 1 1 Reason Comments Musculoskeletal Problem Reason Comments Orders Reason Comments Established Patient Reason Onset Date Comments Refill Request 12/15/2022 Reason Comments Refill Request Reason Comments home health plan of care Reason Comments Patient Update Reason Onset Date Comments Transition Of Care 12/22/2022 Reason Comments [facility] HH, PT plan of care No call back nee ded Reason Comments Home health care Reason Comments Appointment Reason Comments Recheck 4-6 month follow up Reason Comments Hospital F/U [facility] follow up stroke Reason Comments Follow Up Reason Comments ED Follow-up [facility] ED 02/19/2023 for dehydration and dizziness Reason Onset Date Comments Refill Request 05/03/2023 Reason Comments Follow Up 18 weeks 3 days post visit Bilateral kne e pain with injection given left knee Reason Comments Follow Up Cva Reason Comments Diarrhea Reason Onset Date Comments Escalation of Care 06/04/2023 Specialty Diagnoses / Procedures [facility]erred [facility] Referred To Contact [facility] Diagnoses Thoracic spondylosis without myelopathy Procedures MRI THORACIC SPINE WO IVCON MRI SPINAL CANAL THORACIC W/O CONTRAST MATRL Mariangel Arteaga PA-C [address] [place] [address] Mr [facility] [place] [address] Referral ID Status Reason Start Date Expiration Date V isits Requested Visits Authorized [id number] Closed Auto-Generate d Referral 10/19/2022 12/18/2022 1 1 Reason Comments Medication Clarification Reason Comments surgical clearace form Reason Onset Date Comments Advice Only 10/07/2023 Reason Onset Date Comments Refill Request 11/10/2023 Reason Onset Date Comments Refill Request 12/09/2023 Reason Comments Follow Up Reason Onset Date Comments error 02/09/2024 Reason Onset Date Comments Forms/letter 03/02/2024 Handicap placard letter Reason Comments Established Patient Follow up and c/o Po ssible URI x 12 days Reason Comments Wrist Pain Reason Comments Wrist/forearm Injury R wrist - freezer d oor stuck and pulled real hard Reason Comments Radiology MRI Specialty Diagnoses / Procedures Referred By [facility] Referred To Contact [facility] Diagnoses Transient cerebral ischemia, unspecified type Procedures MRI BRAIN WO IVCON MRI BRAIN BRAIN STEM W/O CONTRAST MATERIAL Michelle Pacheco, PAULA.BEER COOLER [address] [place] [id number] [facility] [place] [address] Referral ID Status Reason Start Date Expiration Date V isits Requested Visits Authorized [id number] Closed Auto-Generate d Referral 05/07/2022 06/06/2023 1 1 Reason Comments Radiology XR Reason Comments UTI Frequency, pelvic pr essure and pain, urine odor x months Reason Comments [employer] faxing order form for CPAP supplie s Reason Onset Date Comments Refill Request 09/28/2024 Reason Comments Medicare Wellness Exam Reason Onset Date Comments Head Injury 01/12/2025 Reason Onset Date Comments Refill Request 01/24/2025 Reason Comments Hospital F/U [facility] admission on for syncope Reason Onset Date Comments Refill Request 02/22/2025 Medication Problem 02/22/2025 Out of some o f the medications Reason Comments Insurance Authorization Care Teams (unrecognized sec tion and content) Laboratory Director Relationship Specialty Start Date End Date Yenifer Gonsalez MD [address] [facility] [place] [address] PCP - General 10/02/02 Laboratory Director Relationship Specialty Start Date End Date Yenifer Gonsalez MD [address] [place] [address], [place] [address] PCP - General 10/02/02 Laboratory Director Relationship Specialty Start Date End Date Yenifer Gonsalez MD [address] [place] [address], [place] [address] PCP - General 10/02/02 Laboratory Director Relationship Specialty Start Date End Date Yenifer Gonsalez MD [facility] [place] [address] PCP - General 10/02/02 Laboratory Director Relationship Specialty Start Date End Date Yenifer Gonsalez MD [address] [place] [address], [place] [address] PCP - General 10/02/02 Laboratory Director Relationship Specialty Start Date End Date Yenifer Gonsalez MD [address] [place] [address], [place] [address] PCP - General 10/02/02 Laboratory Director Relationship Specialty Start Date End Date Yenifer Gonsalez MD [address] [place] [address], [place] [address] PCP - General 10/02/02 Laboratory Director Relationship Specialty Start Date End Date Yenifer Gonsalez MD [address] [place] [address], [place] [address] PCP - General 10/02/02 Laboratory Director Relationship Specialty Start Date End Date Yenifer Gonsalez MD [address] [facility] [place] [address] PCP - General 10/02/02 Laboratory Director Relationship Specialty Start Date End Date Yenifer Gonsalez MD [address] [facility] [place] [address] PCP - General 10/02/02 Laboratory Director Relationship Specialty Start Date End Date Yenifer Gonsalez MD [address] [place] [address], [place] [address] PCP - General 10/02/02 Laboratory Director Relationship Specialty Start Date End Date Yenifer Gonsalez MD [address] [place] [address], [place] [address] PCP - General 10/02/02 Laboratory Director Relationship Specialty Start Date End Date Yenifer Gonsalez MD [address] [place] [address], [place] [address] PCP - General 10/02/02 Laboratory Director Relationship Specialty Start Date End Date Yenifer Gonsalez MD [facility] [place] [address] PCP - General 10/02/02 Laboratory Director Relationship Specialty Start Date End Date Yenifer Gonsalez MD [address] [place] [address], [place] [address] PCP - General 10/02/02 Laboratory Director Relationship Specialty Start Date End Date Yenifer Gonsalez MD [address] [place] [address], [place] [address] PCP - General 10/02/02 Laboratory Director Relationship Specialty Start Date End Date Yenifer Gonsalez MD [address] [place] [address], [place] [address] PCP - General 10/02/02 Laboratory Director Relationship Specialty Start Date End Date Yenifer Gonsalez MD [address] [facility] [place] [address] PCP - General 10/02/02 Laboratory Director Relationship Specialty Start Date End Date Yenifer Gonsalez MD [address] [place] [address], [place] [address] PCP - General 10/02/02 Laboratory Director Relationship Specialty Start Date End Date Yenifer Gonsalez MD [address] [place] [address], [place] [address] PCP - General 10/02/02 Laboratory Director Relationship Specialty Start Date End Date Yenifer Gonsalez MD [address] [place] [address], [place] [address] PCP - General 10/02/02 Laboratory Director Relationship Specialty Start Date End Date Yenifer Gonsalez MD [address] [place] [address], [place] [address] PCP - General 10/02/02 Laboratory Director Relationship Specialty Start Date End Date Yenifer Gonsalez MD [address] [place] [address], [place] [address] PCP - General 10/02/02 Laboratory Director Relationship Specialty Start Date End Date Yenifer Gonsalez MD [address] [place] [address], [place] [address] PCP - General 10/02/02 Laboratory Director Relationship Specialty Start Date End Date Yenifer Gonsalez MD [address] [place] [address], [place] [address] PCP - General 10/02/02 Laboratory Director Relationship Specialty Start Date End Date Yenifer Gonsalez MD [address] [place] [address], [place] [address] PCP - General 10/02/02 Laboratory Director Relationship Specialty Start Date End Date Yenifer Gonsalez MD [address] [facility] [place] [address] PCP - General 10/02/02 Laboratory Director Relationship Specialty Start Date End Date Yenifer Gonsalez MD [address] [place] [address] PCP - General 10/02/02 Laboratory Director Relationship Specialty Start Date End Date Yenifer Gonsalez MD [address] [place] [address] PCP - General 10/02/02 Laboratory Director Relationship Specialty Start Date End Date Yenifer Gonsalez MD [address] [place] [address] PCP - General 10/02/02 Team Status: Active Member Role Status Dates Dr. Yenifer Gonsalez MD Family Provider Active Dr. Yenifer Gonsalez MD Primary Care Provider Active Team Status: Active Member Role Status Dates Dr. Yenifer Gonsalez MD Primary Care Provider Active Dr. Alejandro Chaudhari MD Emergency Provider Active Dr. Kitty Brooks MD Admit Provider, Attending Prov ider Active Team Status: Active Member Role Status Dates Dr. Yenifer Gonsalez MD Primary Care Provider Active Dr. Alejandro Chaudhari MD Emergency Provider Active Dr. Kitty Brooks MD Admit Provider, Other Provider Active Dr. Alonso Tapia MD Other Provider Active Dr. Shahbaz Elliott DO Attending Provider, Other Provide r Active Dr. Keshawn Forte MD Other Provider Active Dr. Darrion Pradhan MD Other Provider Active Estrellita Wisdom CBX OPERATOR, CBX OPERATOR-C Other Provider Active Dr. Kyle Roth MD Other Provider Active Team Status: Active Member Role Status Dates Dr. Yenifer Gonsalez MD Primary Care Provider Active Dr. Christophe Wilson MD Attending Provider Active Team Status: Active Member Role Status Dates Dr. Yenifer Gonsalez MD Primary Care Provider Active Dr. Alejandro Chaudhari MD Emergency Provider Active Dr. Kitty Brooks MD Admit Provider, Other Provider Active Dr. Alonso Tapia MD Other Provider Active Dr. Shahbaz Elliott , Other Provider Active Dr. Keshawn Forte MD Other Provider Active Dr. Darrion Pradhan MD Other Provider Active Estrellita Wisdom CBX OPERATOR, CBX OPERATOR-C Other Provider Active Dr. Kyle Roth MD Attending Provider, Other Provi ricardo Active Team Status: Active Member Role Status Dates Dr. Yenifer Gonsalez MD Primary Care Provider Active Dr. Alejandro Chaudhari MD Emergency Provider Active Dr. Kitty Brooks MD Admit Provider, Other Provider Active Dr. Alonso Tapia MD Other Provider Active Dr. Shahbaz Elliott , Other Provider Active Dr. Keshawn Forte MD Other Provider Active Dr. Darrion Pradhan MD Other Provider Active Estrellita Wisdom CBX OPERATOR, CBX OPERATOR-C Other Provider Active Dr. Kyle Roth MD Attending Provider, Other Provi ricardo Active Dr. Abner Shell MD Other Provider Active Team Status: Active Member Role Status Dates Dr. Yenifer Gonsalez MD Primary Care Provider Active Dr. Alejandro Chaudhari MD Emergency Provider Active Dr. Kitty Brooks MD Admit Provider, Other Provider Active Dr. Alonso Tapia MD Other Provider Active Dr. Shahbaz Elliott , Other Provider Active Dr. Keshawn Forte MD Other Provider Active Dr. Darrion Pradhan MD Other Provider Active Estrellita Wisdom CBX OPERATOR, CBX OPERATOR-C Other Provider Active Dr. Kyle Roth MD Other Provider Active Dr. Abner Shell MD Attending Provider, Other Provide r Active Team Status: Inactive Member Role Status Dates Dr. Yenifer Gonsalez MD Primary Care Provider Active Dr. Alejandro Chaudhari MD Emergency Provider Active Dr. Kitty Brooks MD Admit Provider, Other Provider Active Dr. Alonso Tapia MD Other Provider Active Dr. Shahbaz Elliott , Other Provider Active Dr. Keshawn Forte MD Other Provider Active Dr. Darrion Pradhan MD Other Provider Active Estrellita Wisdom CBX OPERATOR, CBX OPERATOR-C Other Provider Active Dr. Kyle Roth MD Attending Provider Active Dr. Abner Shell MD Other Provider Active Laboratory Director Relationship Specialty Start Date End Date Yenifer Gonsalez MD [address] [facility] [place] [address] PCP - General 10/02/02 Laboratory Director Relationship Specialty Start Date End Date Yenifer Gonsalez MD [address] [place] [address] PCP - General 10/02/02 Laboratory Director Relationship Specialty Start Date End Date Yenifer Gonsalez MD [address] [place] [address] PCP - General 10/02/02 Laboratory Director Relationship Specialty Start Date End Date Yenifer Gonsalez MD [address] [place] [address] PCP - General 10/02/02 Laboratory Director Relationship Specialty Start Date End Date Yenifer Gonsalez MD [address] [place] [address] PCP - General 10/02/02 Laboratory Director Relationship Specialty Start Date End Date Yenifer Gonsalez MD [address] [place] [address] PCP - General 10/02/02 Laboratory Director Relationship Specialty Start Date End Date Yenifer Gonsalez MD [address] [place] [address] PCP - General 10/02/02 Laboratory Director Relationship Specialty Start Date End Date Yenifer Gonsalez MD [address] [place] [address] PCP - General 10/02/02 Laboratory Director Relationship Specialty Start Date End Date Yenifer Gonsalez MD [address] [place] [address] PCP - General 10/02/02 Team Status: Inactive Member Role Status Dates Dr. Yenifer Gonsalez MD Primary Care Provider, Referr ing Provider Active Eleanor Castillo PA, PA Attending Provider Active Team Status: Inactive Member Role Status Dates Dr. Yenifer Gonsalez MD Primary Care Pr ovider, Attending Provider, Referring Provider Active Team Status: Active Member Role Status Dates Dr. Yenifer Gonsalez MD Primary Care Provider Active Eleanor Castillo PA, PA Attending Provider, Referr ing Provider Active Team Status: Inactive Member Role Status Dates Dr. Yenifer Gonsalez MD Primary Care Provider Active Eleanor Castillo PA, PA Attending Provider Active Team Status: Active Member Role Status Dates Dr. Yenifer Gonsalez MD Primary Care Provider Active Eleanor Castillo PA, PA Referring Provider, Other Provider Active Dr. Abner Shell MD Attending Provider Active Team Status: Inactive Member Role Status Dates Dr. Yenifer Gonsalez MD Primary Care Provider Active Eleanor Castillo PA, PA Attending Provider, Referr ing Provider Active Laboratory Director Relationship Specialty Start Date End Date Yenifer Gonsalez MD [address] [place] [address] PCP - General 10/02/02 Laboratory Director Relationship Specialty Start Date End Date Yenifer Gonsalez MD [address] [place] [address] PCP - General 10/02/02 Laboratory Director Relationship Specialty Start Date End Date Yenifer Gonsalez MD [address] [place] [address] PCP - General 10/02/02 Laboratory Director Relationship Specialty Start Date End Date Yenifer Gonsalez MD [address] [place] [address] PCP - General 10/02/02 Laboratory Director Relationship Specialty Start Date End Date Yenifer Gonsalez MD [address] [place] [address] PCP - General 10/02/02 Laboratory Director Relationship Specialty Start Date End Date Yenifer Gonsalez MD [address] [place] [address] PCP - General 10/02/02 Laboratory Director Relationship Specialty Start Date End Date Yenifer Gonsalez MD [address] [place] [address] PCP - General 10/02/02 Laboratory Director Relationship Specialty Start Date End Date Yenifer Gonsalez MD [address] [place] [address] PCP - General 10/02/02 Laboratory Director Relationship Specialty Start Date End Date Yenifer Gonsalez MD [address] [place] [address] PCP - General 10/02/02 Laboratory Director Relationship Specialty Start Date End Date Yenifer Gonsalez MD [address] [place] [address] PCP - General 10/02/02 Laboratory Director Relationship Specialty Start Date End Date Yenifer Gonsalez MD [address] [place] [address] PCP - General 10/02/02 Laboratory Director Relationship Specialty Start Date End Date Yenifer Gonsalez MD [address] [place] [address] PCP - General 10/02/02 Laboratory Director Relationship Specialty Start Date End Date Yenifer Gonsalez MD [address] [place] [address] PCP - General 10/02/02 Laboratory Director Relationship Specialty Start Date End Date Yenifer Gonsalez MD [address] [place] [address] PCP - General 10/02/02 Laboratory Director Relationship Specialty Start Date End Date Yenifer Gonsalez MD [address] [place] [address] PCP - General 10/02/02 Laboratory Director Relationship Specialty Start Date End Date Yenifer Gonsalez MD [address] [place] [address] PCP - General 10/02/02 Laboratory Director Relationship Specialty Start Date End Date Yenifer Gonsalez MD [address] [place] [address] PCP - General 10/02/02 Christa Cabrera, COMPUTER SUPPORT SPECIALIST.ENVIRONMENTAL ATTORNEY [address] [place] [address] Classroom Monitor Internal Medicine 09/04/24 Dione Francisco COMPUTER SUPPORT SPECIALIST.BEER COOLER [address] [place] [address] Classroom Monitor Internal Medicine 09/04/24 Laboratory Director Relationship Specialty Start Date End Date Yenifer Gonsalez MD [address] [place] [address] PCP - General 10/02/02 Christa Cabrera, COMPUTER SUPPORT SPECIALIST.ENVIRONMENTAL ATTORNEY [address] [place], [place] [address] [facility] Internal Medicine 09/04/24 Dione Francisco, COMPUTER SUPPORT SPECIALIST.BEER COOLER [address] [place] [address] [facility] Internal [facility] 09/04/24 Team Status: Active Member Role Status Dates Dr. Yenifer Gonsalez MD Primary Care Provider Active Team Status: Inactive Member Role Status Dates Dr. Yenifer Gonsalez MD Primary Care Provider Active Start: January 12, 2025 End: January 12, 2025 Dr. Uche Hanson DO Emergency Provider Active Start: January 12, 2025 End: January 12, 2025 Team Status: Inactive Member Role Status Dates Dr. Yenifer Gonsalez MD Primary Care Provider Active Start: January 12, 2025 End: January 12, 2025 Dr. Uche Hanson DO Attending Provider Active Start: January 12, 2025 End: January 12, 2025 Dr. Uche Hanson DO Emergency Provider Active Start: January 12, 2025 End: January 12, 2025 Team Status: Active Member Role Status Dates Dr. Yenifer Gonsalez MD Primary Care Provider Active Start: January 22, 2025 Dr. Alejandro Chaudhari MD Emergency Provider Active Sta rt: January 22, 2025 Dr. Pablo Fernandes MD Admit Provider Active Star t: January 22, 2025 Dr. Pablo Fernandes MD Attending Provider Active Start: January 22, 2025 Team Status: Active Member Role Status Dates Dr. Yenifer Gonsalez MD Primary Care Provider Active Start: January 22, 2025 Dr. Alejandro Chaudhari MD Emergency Provider Active Sta rt: January 22, 2025 Dr. Pablo Fernandes MD Admit Provider Active Star t: January 22, 2025 Dr. Pablo Fernandes MD Attending Provider Active Start: January 22, 2025 Dr. Pablo Fernandes MD Other Provider Active Star t: January 22, 2025 Team Status: Inactive Member Role Status Dates Dr. Yenifer Gonsalez MD Primary Care Provider Active Start: January 22, 2025 End: January 23, 2025 Dr. Alejandro Chaudhari MD Emergency Provider Active Sta rt: January 22, 2025 End: January 23, 2025 Dr. Pablo Fernandes MD Admit Provider Active Star t: January 22, 2025 End: January 23, 2025 Dr. Pablo Fernandes MD Other Provider Active Star t: January 22, 2025 End: January 23, 2025 Dr. Adebayo De La Cruz MD Attending Provider Active Start: January 22, 2025 End: January 23, 2025 Smith Benites MD Other Provider Active Start: Ap 2024 End: January 23, 2025 Dr. Sunil Mcnally MD Other Provider Active Start: January 22, 2025 End: January 23, 2025 Quiana Sexton MD Other Provider Active Start : January 22, 2025 End: January 23, 2025 Dr. Mara iTllman DO Other Provider Active St art: January 22, 2025 End: January 23, 2025 Dr. Kat Tinajero MD Other Provider Active Start: January 22, 2025 End: January 23, 2025 Dr. José Waters MD Other Provider Active Sta rt: January 22, 2025 End: January 23, 2025 Dr. Tasha Aviles MD Other Provider Active Start : January 22, 2025 End: January 23, 2025 Dr. Eliseo Dent MD Other Provider Active Start: January 22, 2025 End: January 23, 2025 Dr. Shahriar Saeed MD Other Provider Active Start : January 22, 2025 End: January 23, 2025 Dr. German Talamantes MD Other Provider Active Sta rt: January 22, 2025 End: January 23, 2025 Ariella Madera MD Other Provider Active Start : January 22, 2025 End: January 23, 2025 Dr. Mike Nunn MD Other Provider Active St art: January 22, 2025 End: January 23, 2025 Dr. Marilynn Lala MD Other Provider Active Start : January 22, 2025 End: January 23, 2025 Dr. Caity Samuel MD Other Provider Active Sta rt: January 22, 2025 End: January 23, 2025 Dr. Chico Ashraf MD Other Provider Active Start: January 22, 2025 End: January 23, 2025 Dr. Farooq Ramon MD Other Provider Active St art: January 22, 2025 End: January 23, 2025 Dr. Yesica Rubalcava MD Other Provider Active Star t: January 22, 2025 End: January 23, 2025 Dr. Pan Leong MD Other Provider Active St art: January 22, 2025 End: January 23, 2025 Dr. Ness Liao MD Other Provider Active Start: January 22, 2025 End: January 23, 2025 Kimberly Mckinney MD Other Provider Active Start: January 22, 2025 End: January 23, 2025 Team Status: Active Member Role Status Dates Dr. Yenifer Gonsalez MD Primary Care Provider Active Start: January 23, 2025 Dr. Alejandro Chaudhari MD Emergency Provider Active Sta rt: January 23, 2025 Dr. Pablo Fernandes MD Admit Provider Active Star t: January 23, 2025 Dr. Pablo Fernandes MD Other Provider Active Star t: January 23, 2025 Dr. Adebayo De La Cruz MD Attending Provider Active Start: January 23, 2025 Dr. Adebayo De La Cruz MD Other Provider Active Star t: January 23, 2025 Smith Benites MD Other Provider Active Start: 2024 Dr. Sunil Mcnally MD Other Provider Active Start: January 23, 2025 Quiana Sexton MD Other Provider Active Start : January 23, 2025 Dr. Mara Tillman DO Other Provider Active St art: January 23, 2025 Dr. Kat Tinajero MD Other Provider Active Start: January 23, 2025 Dr. José Waters MD Other Provider Active Sta rt: January 23, 2025 Dr. Tasha Aviles MD Other Provider Active Start : January 23, 2025 Dr. Eliseo Dnet MD Other Provider Active Start: January 23, 2025 Dr. Shahriar Saeed MD Other Provider Active Start : January 23, 2025 Dr. German Talamantes MD Other Provider Active Sta rt: January 23, 2025 Ariella Madera MD Other Provider Active Start : January 23, 2025 Dr. Mike Nunn MD Other Provider Active St art: January 23, 2025 Dr. Marilynn Lala MD Other Provider Active Start : January 23, 2025 Dr. Caity Samuel MD Other Provider Active Sta rt: January 23, 2025 Dr. Chico Ashraf MD Other Provider Active Start: January 23, 2025 Dr. Farooq Ramon MD Other Provider Active St art: January 23, 2025 Dr. Yesica Rubalcava MD Other Provider Active Star t: January 23, 2025 Dr. Pan Leong MD Other Provider Active St art: January 23, 2025 Dr. Ness Liao MD Other Provider Active Start: January 23, 2025 Kimberly Mckinney MD Other Provider Active Start: January 23, 2025 Team Status: Active Member Role Status Dates Dr. Yenifer Gonsalez MD Primary Care Provider Active Start: January 23, 2025 Dr. Aayush Candelario MD Attending Provider Activ e Start: January 23, 2025 Laboratory Director Relationship Specialty Start Date End Date Yenifer Gonsalez MD [address] [place] [place], [place] [address] PCP - General 10/02/02 Christa Cabrera, COMPUTER SUPPORT SPECIALIST.ENVIRONMENTAL ATTORNEY [address] [place], [place] [address] Classroom Monitor Internal Medicine 09/04/24 Dione Francisco, COMPUTER SUPPORT SPECIALIST.BEER COOLER [address] [place], [place] [id number] Classroom Monitor Internal Medicine 12/19/24 Laboratory Director Relationship Specialty Start Date End Date Yenifer Gonsalez MD [address] [place], [place] [id number] PCP - General 10/02/02 Christa Cabrera, COMPUTER SUPPORT SPECIALIST.ENVIRONMENTAL ATTORNEY [address] [place] [address] Classroom Monitor Internal Medicine 09/04/24 Dione Francisco, COMPUTER SUPPORT SPECIALIST.BEER COOLER [address] [facility] [place] [address] Classroom Monitor Internal Medicine 12/19/24 Team Status: Inactive Member Role Status Dates Dr. Yenifer Gonsalez MD Primary Care Provider Active Start: January 31, 2025 End: January 31, 2025 Dr. Adebayo De La Cruz MD Attending Provider Active Start: January 31, 2025 End: January 31, 2025 Dr. Adebayo De La Cruz MD Referring Provider Active Start: January 31, 2025 End: January 31, 2025 Laboratory Director Relationship Specialty Start Date End Date Yenifer Gonsalez MD [address] [facility] [place] [address] PCP - General 10/02/02 Dione Francisco, COMPUTER SUPPORT SPECIALIST.BEER COOLER [address] [facility] [place] [address] Classroom Monitor Internal Medicine 12/19/24 Christa Cabrera, COMPUTER SUPPORT SPECIALIST.ENVIRONMENTAL ATTORNEY [address] [facility] [place] [address] Classroom Monitor Internal Medicine 02/14/25 Team Status: Inactive Member Role Status Dates Dr. Yenifer Gonsalez MD Primary Care Provider Active Start: February 16, 2025 End: February 16, 2025 Dr. Yenifer Gonsalez MD Referring Provider Active Start: February 16, 2025 End: February 16, 2025 Lora Oliver CBX OPERATOR, CBX OPERATOR-C Attending Provider Active Start: February 16, 2025 End: February 16, 2025 Team Status: Active Member Role Status Dates Dr. Yenifer Gonsalez MD Primary Care Provider Active Start: February 26, 2025 Lora Oliver CBX OPERATOR, CBX OPERATOR-C Attending Provider Active Start: February 26, 2025 Lora Oliver NP CBX OPERATOR-C Referring Provider Active Start: February 26, 2025 Team Status: Inactive Member Role Status Dates Dr. Yenifer Gonsalez MD Primary Care Provider Active Start: March 02, 2025 End: March 02, 2025 Lora Oliver CBX OPERATOR, CBX OPERATOR-C Attending Provider Active Start: March 02, 2025 End: March 02, 2025 Lora Oliver CBX OPERATOR, CBX OPERATOR-C Referring Provider Active Start: March 02, 2025 End: March 02, 2025 Team Status: Active Member Role Status Dates Dr. Yenifer Gonsalez MD Primary Care Provider Active Start: March 02, 2025 Dr. Pieter Del Cid MD Attending Provider Active S tart: March 02, 2025 Team Status: Active Member Role Status Dates Dr. Yenifer Gonsalez MD Primary Care Provider Active Start: March 05, 2025 Lora Oliver NP, CBX OPERATOR-C Attending Provider Active Start: March 05, 2025 Laboratory Director Relationship Specialty Start Date End Date Yenifer Gonsalez MD [address] [place], [place] [id number] PCP - General 10/02/02 Dione Francisco COMPUTER SUPPORT SPECIALIST.BEER COOLER [address] [place], [place] [id number] Classroom Monitor Internal Medicine 12/19/24 Christa Cabrera, COMPUTER SUPPORT SPECIALIST.ENVIRONMENTAL ATTORNEY [address] [place], [place] [address] Classroom Monitor Internal Medicine 02/14/25 Goals (unrecognized section and content) Goals may be documented in a n alternate sectionGoals may be documented in an alternate sectionGoals may be documented in an alternate sectionGoals may be documented in an alternate sectionGoals may be documented in an alternate sectionGoals may be documented in an alternate sectionGoals may be documented in an alternate section No data available for this section No data available for this section No data available for this sectionGoals may be documented in an alternate sectionGoals may be documented in an alternate section INFORMATION SOURCE (unrecogn ized section and content) DATE CREATED AUTHOR 06/27/2022 [facility] DATE CREATED AUTHOR AUTHOR'S ORGANIZ ATION 09/22/2023 [facility] ([place]) DATE CREATED AUTHOR AUTHOR'S ORGANIZ ATION 01/14/2025 [facility] DATE CREATED AUTHOR AUTHOR'S ORGANIZ ATION 03/16/2025 [facility] DATE CREATED AUTHOR AUTHOR'S ORGANIZ ATION 03/18/2025 [facility] FOR RECORDS PERTAINING TO PATIENTS WHO ARE OR HAVE BEEN ENROLLED IN A CHEMICAL DEPENDENCY/SUBSTANCEABUSE PROGRAM, SOME INFORMATION MAY BE OMITTED. This clinical summary was aggregated from multiple sources. Caution should be exercised in using it in the provision of clinical care. This summary normalizes information from multiple sources, and as a consequence, information in this document may materially change the coding, format and clinical context of patient data. In addition, data may be omitted in some cases. CLINICAL DECISIONS SHOULD BE BASED ON THE PRIMARY CLINICAL RECORDS. [employer] [facility]. provides no warranty or guarantee of the accuracy or completeness of information in this document.
--- NOTE | 2025-03-18 16:50 | RAD_ITS ---
PROCEDURE: WRIST MIN 3 VIEWS 03/18/2025 REASON FOR EXAM: PAIN TECHNIQUE: WRIST MIN 3 VIEWS COMPARISON: None RAD/Wrist min 3 Views IMPRESSION: Acute comminuted fracture of the distal radial metaphysis with appearance of im paction. Positive ulnar variance. Diffuse osteopenia. Scattered moderate degenerative changes throughout the intercarpal and radiocarpal joint spaces. Diffuse moderate soft tissue swelling. Reading Location: [id number]
--- NOTE | 2025-03-18 17:50 | EX.ED.GENINJ ---
HPI <GEOVANY Boucher - Last Filed: 03/18/25 21:04> History of Present Illness Chief Complaint: Fall Narrative Narrative: Patient resenting today due to a mechanical fall that took place this evening. She was walking her dog outside, the dog saw another dog and pulled her causing her to fall forward and hit her forehead on the ground, she tried to catch herself with an outstretched left hand and reports pain to her left wrist. She did hit her right knee against the ground but denies having any pain to her knee. She is on Eliquis due to a history of A-fib. She denies any LOC. She denies neck pain or other injury. She is right-handed. 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 Herpes simplex vulvovaginitis Arthritis Obesity Hyperlipidemia Vulvar dermatitis Lichen sclerosus Diabetes Sarcoidosis Spleen anomaly Splenomegaly History of blood clots Sleep apnea Hemorrhoids BMI 36.0-36.9,adult History of PSVT (paroxysmal supraventricular tachycardia) Home Medications ?Medication ?Instructions ?Recorded ?Last Taken ?Type paroxetine HCl 20 mg tablet (Paxil) 40 mg PO DAILY DEPRESSION 04/03/16 01/22/25 History verapamil 80 mg tablet 80 mg PO BID HEART 04/03/16 01/22/25 History gabapentin 400 mg capsule 400 mg PO TID nerve pain 10/29/20 01/22/25 History fluticasone propionate 50 1 spray intranasal DAILY 09/09/21 01/21/25 History mcg/actuation nasal spray,suspension (Flonase Allergy Relief) apixaban 5 mg tablet (Eliquis) 5 mg PO BID 30 days #60 tabs 12/19/22 01/22/25 Rx biotin 1 mg capsule 1 mg PO DAILY 01/22/25 01/22/25 History cholecalciferol (vitamin D3) 50 50 mcg PO DAILY 01/22/25 01/22/25 History mcg (2,000 unit) tablet (Thera-D) magnesium 250 mg tablet 250 mg PO DAILY 01/22/25 01/22/25 History meclizine 25 mg tablet 25 mg PO 4X/DAY PRN Dizziness 01/22/25 Unknown History mecobalamin (vitamin B12) 1,000 1,000 mcg PO DAILY 01/22/25 01/22/25 History mcg lozenges metformin 500 mg tablet,extended 500 mg PO BID 01/22/25 01/22/25 History release 24 hr multivitamin (Multiple Vitamins 1 tab PO DAILY 01/22/25 01/22/25 History tablet) paroxetine HCl 20 mg tablet 10 mg PO QHS 01/22/25 01/21/25 History rosuvastatin 10 mg tablet 10 mg PO DAILY 01/22/25 01/21/25 History Allergy/AdvReac Type Severity Reaction Status Date / Time lidocaine Allergy Intermediate tachycardia Verified 03/18/25 16:11 Penicillins Allergy Hives Verified 03/18/25 16:11 atorvastatin AdvReac Pain in Verified 03/18/25 16:11 joints hydrocodone bitartrate (From AdvReac Vomiting Verified 03/18/25 16:11 Vicodin) oxycodone HCl (From Percocet) AdvReac Vomiting Verified 03/18/25 16:11 Family History Daughter Hypertension Father Heart disease Mother Dementia Surgical History History of breast biopsy H/O splenectomy History of hysterectomy Social History household members: spouse housing: house Smoking Status: Never smoker alcohol intake: current details: social substance use type: does not use caffeine: Yes what type of physical activity do you participate in: walking seatbelt use: always do you feel safe at home: Yes 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 [employer] <GEOVANY Boucher - Last Filed: 03/18/25 21:04> [facility] Constitutional Constitutional ED: Denies chills or fever(s) Cardiovascular Cardiovascular: Denies chest pain Respiratory/Chest Respiratory/Chest: Denies dyspnea Gastrointestinal Gastrointestinal: Denies abdominal pain, nausea or vomiting Musculoskeletal Musculoskeletal: Reports arthralgias; Denies neck pain Integumentary Reports Abrasions Neurologic Neurologic: Denies paresthesias EXAM <GEOVANY Boucher - Last Filed: 03/18/25 21:04> Physical Exam Const Vital Signs: 03/18/25 16:11 03/18/25 16:20 03/18/25 18:48 Temperature 98.1 F 98.1 F Temperature Source Oral Pulse Rate 87 87 Respiratory Rate 16 16 Respiratory Effort Normal Non-Labored Respiratory Depth Normal Respiratory Pattern Normal Blood Pressure 125/62 H 125/62 H Blood Pressure Mean 83 83 Pulse Ox 98 98 Oxygen Delivery Method Room Air Room Air Positive well nourished, well developed and no apparent distress General Appearance ED: well developed HEENT Reports normocephalic and head/scalp atraumatic Mouth ED: Yes moist mucous membranes normal Eyes PERRL and EOMs intact bilaterally Neck full ROM and supple Neck Narrative: No midline cervical tenderness Chest Wall inspection of chest normal Resp normal respiratory effort and clear to auscultation bilaterally Cardio regular rate and regular rhythm GI soft to palpation, non-tender, non-distended and no masses Back/Spine normal ROM and normal to inspection Extremity full ROM Extremity Narrative: Edema with decreased range of motion to the left wrist, pain to the radial and ulnar aspect of the wrist. Full range of motion to all 5 fingers of the left hand. Small abrasion to the right knee, no tenderness to palpation to the knee. Neuro oriented x3, CN's II-XII intact bilaterally, moves all extremities, no focal motor deficits and no sensory deficits noted Sensorium / Orientation: awake and alert Psych mental status grossly normal and thought process normal Skin no rashes or lesions noted and no wounds <Dr. Alejandro Chaudhari MD - Last Filed: 03/18/25 21:16> Physical Exam Const Vital Signs: 03/18/25 16:11 03/18/25 16:20 03/18/25 18:48 Temperature 98.1 F 98.1 F Temperature Source Oral Pulse Rate 87 87 Respiratory Rate 16 16 Respiratory Effort Normal Non-Labored Respiratory Depth Normal Respiratory Pattern Normal Blood Pressure 125/62 H 125/62 H Blood Pressure Mean 83 83 Pulse Ox 98 98 Oxygen Delivery Method Room Air Room Air PROC <Dr. Alejandro Chaudhari MD - Last Filed: 03/18/25 21:16> Procedures Upper Extremity Splints Upper Extremity Splint: Plaster and - (AP short forearm/arm) Splint Fabrication: Fabricated Location: Left MDM <GEOVANY Boucher - Last Filed: 03/18/25 21:04> [facility] Narrative Medical decision making narrative: Patient presenting today due to a fall that took place this evening. She was walking her dog when the dog pulled her causing her to fall forward hitting her head against the ground, she tried to catch herself with her left hand and now has pain to her left wrist. Given she is on Eliquis, head CT was obtained to assess for intracranial bleed and is negative. She did not have any neck pain or midline cervical tenderness to necessitate need for C-spine imaging. She does have obvious swelling to her left wrist, x-ray obtained to assess for fracture and does show a comminuted fracture of the distal radial metaphysis with impaction. She then did endorse to the attending she was having right wrist pain, x-ray was obtained and shows soft tissue swelling without any evidence of fracture. She has a small abrasion to her right knee but denies having any pain to her knee, her tetanus is up-to-date. Initially we did consult Dr. Jones because she reported she did not have an orthopedic doctor, he recommended placing her in an AP splint. She then reported she has seen Dr. Pillai in the past and would like to follow-up with him. She was placed on a AP plaster splint, she had good cap refill post splinting. RICE instructions discussed with her, she can take Tylenol as needed for the pain. I did offer to write her for [place] but she does not want any narcotics. She was discharged home in stable condition. Dr. Chaudhari: I have personally performed a face to face assessment of the patient and have reviewed the SOHEIL[facility] Note. I performed a substantive portion of the visit including all aspects of the following. My alva findings include: History is patient had a fall. She hit her head. She is on anticoagulant. She also complains of left wrist pain. She is right-hand dominant. She complains of pain in her right wrist. She denies cardiac or respiratory symptoms. She denies nausea or vomiting. She denies paresthesia, anesthesia or motor weakness in upper or lower extremity. Exam is evidence of epistaxis. There is no septal deviation hematoma shows no clinical signs of basilar skull fracture. There is no dental trauma. Trachea is midline. There is no posterior midline neck pain. Heart lung exams unremarkable. Patient has what appears to be a deformity of her left wrist. Medical Decision Making: Per the [place] CT head rule and [place] rule CT of the head is warranted. CT of the head was obtained. This reviewed by me and reveals no evidence of any intracranial process. Is no other fracture noted either. Three-view x-ray of the wrist reveals a comminuted transverse distal radial fracture that may involve the joint. There is no step-off. There is slight shortening. Patient lost her volar tilt. Patient was asked if she is seen orthopedic surgeon. She stated no. Patient was referred to Dr. Bell in. Time of discharge were made aware that she has seen Dr. Pillai in the past. Treatment was based on conversation with Dr. Jones. Patient was placed in a short arm AP splint. He was not placed in a sugar-tong splint based on discussion with Dr. Jones. Other additions or changes: [None] Radiography X-Ray: Read by ED Physician Diagnostic Testing: Clinical Impression(s) from Imaging Studies Brain CT 03/18/25 16:33 IMPRESSION: No acute intracranial process. Reading Location: [facility] Wrist X-Ray 03/18/25 16:50 IMPRESSION: Acute comminuted fracture of the distal radial metaphysis with appearance of impaction. Positive ulnar variance. Diffuse osteopenia. Scattered moderate degenerative changes throughout the intercarpal and radiocarpal joint spaces. Diffuse moderate soft tissue swelling. Reading Location: [id number] Wrist X-Ray 03/18/25 17:53 IMPRESSION: No definite acute fracture or dislocation. Diffuse mild osteopenia. Scattered moderate degenerative changes throughout the intercarpal joints and radiocarpal joint spaces, most prominent at 1st CMC joint. Moderate soft tissue swelling about the wrist. No radiographic foreign body. Consider CT/MR if there is concern for occult fractures as radiographic evaluation is somewhat limited. Reading Location: [facility] <Dr. Alejandro Chaudhari MD - Last Filed: 03/18/25 21:16> MDM MDM Narrative Medical decision making narrative: Dr. Sagastume: I have personally performed a face to face assessment of the patient and have reviewed the SOHEILA Note. I performed a substantive portion of the visit including all aspects of the following. My alva findings include: History is patient had a fall. She hit her head. She is on anticoagulant. She also complains of left wrist pain. She is right-hand dominant. She complains of pain in her right wrist. She denies cardiac or respiratory symptoms. She denies nausea or vomiting. She denies paresthesia, anesthesia or motor weakness in upper or lower extremity. Exam is evidence of epistaxis. There is no septal deviation hematoma shows no clinical signs of basilar skull fracture. There is no dental trauma. Trachea is midline. There is no posterior midline neck pain. Heart lung exams unremarkable. Patient has what appears to be a deformity of her left wrist. Medical Decision Making: Per the [place] CT head rule and [place] rule CT of the head is warranted. CT of the head was obtained. This reviewed by me and reveals no evidence of any intracranial process. Is no other fracture noted either. Three-view x-ray of the wrist reveals a comminuted transverse distal radial fracture that may involve the joint. There is no step-off. There is slight shortening. Patient lost her volar tilt. Patient was asked if she is seen orthopedic surgeon. She stated no. Patient was referred to Dr. Bell in. Time of discharge were made aware that she has seen Dr. Pillai in the past. Treatment was based on conversation with Dr. Jones. Patient was placed in a short arm AP splint. He was not placed in a sugar-tong splint based on discussion with Dr. Jones. Other additions or changes: [None] Radiography Diagnostic Testing: Clinical Impression(s) from Imaging Studies Brain CT 03/18/25 16:33 IMPRESSION: No acute intracranial process. Reading Location: [facility] Wrist X-Ray 03/18/25 16:50 IMPRESSION: Acute comminuted fracture of the distal radial metaphysis with appearance of impaction. Positive ulnar variance. Diffuse osteopenia. Scattered moderate degenerative changes throughout the intercarpal and radiocarpal joint spaces. Diffuse moderate soft tissue swelling. Reading Location: [facility] Wrist X-Ray 03/18/25 17:53 IMPRESSION: No definite acute fracture or dislocation. Diffuse mild osteopenia. Scattered moderate degenerative changes throughout the intercarpal joints and radiocarpal joint spaces, most prominent at 1st CMC joint. Moderate soft tissue swelling about the wrist. No radiographic foreign body. Consider CT/MR if there is concern for occult fractures as radiographic evaluation is somewhat limited. Reading Location: [facility] Discharge Plan Triage Chief Complaint: Fall ED Midlevel Provider: Devika Sanchez ED Provider: Alejandro Chaudhari Dx/Rx/DC Orders Clinical Impression: Left wrist fracture Instructions: ED Fracture, Wrist, General Prescriptions: No Action fluticasone propionate [Flonase Allergy Relief] 50 mcg/actuation spray,suspension 1 spray intranasal DAILY Rx Instructions: administer into each nostril paroxetine HCl [Paxil] 20 MG tablet 40 mg PO DAILY Rx Instructions: AM WITH 10 MG HS verapamil 80 MG tablet 80 mg PO BID gabapentin 400 MG capsule 400 mg PO TID Eliquis 5 mg Tablet 5 mg PO BID 30 Days Qty: 60 2RF metformin 500 mg tablet extended release 24 hr 500 mg PO BID rosuvastatin 10 mg tablet 10 mg PO DAILY mecobalamin (vitamin B12) 1,000 mcg lozenge 1,000 mcg PO DAILY Rx Instructions: allow to dissolve in mouth OR may chew lightly before swallowing magnesium 250 mg tablet 250 mg PO DAILY multivitamin [Multiple Vitamins] Tablet 1 tab PO DAILY biotin 1 mg capsule 1 mg PO DAILY cholecalciferol (vitamin D3) [Thera-D] 50 mcg (2,000 unit) tablet 50 mcg PO DAILY meclizine 25 mg tablet 25 mg PO 4X/DAY PRN paroxetine HCl 20 mg tablet 10 mg PO QHS Primary Care Provider: Edda Ruano Referrals: Edda Ruano MD [Primary Care Provider] - Robert Pillai MD [Med Staff - Active Staff] - 5-7 Days Activity Restrictions/Additional Instructions: Follow-up with orthopedics, elevate and ice the area, take Tylenol as needed for pain. Print Language: Cymro Disposition Disposition: Home, Self Care Discharge Date/Time: 03/18/25 18:55
--- NOTE | 2025-03-18 17:53 | RAD_ITS ---
PROCEDURE: WRIST MIN 3 VIEWS 03/18/2025 REASON FOR EXAM: PAIN TECHNIQUE: WRIST MIN 3 VIEWS COMPARISON: None RAD/Wrist min 3 Views IMPRESSION: No definite acute fracture or dislocation. Diffuse mild osteopenia. Scattered moderate degenerative changes throughout the intercarpal joints and radiocarpal joint spaces, most prominent at 1st CMC join t. Moderate soft tissue swelling about the wrist. No radiographic foreign body. Consider CT/MR if there is concern for occult fractures as radiographic evaluat ion is somewhat limited. Reading Location: [id number]
[2025-03-18 18:48] VITALS: BP 125/62; PULSE 87; RESP 16; TEMP 36.7; O2SAT 98
== END 2025-03-18 18:55 | disposition home or self-care (01) ==
PROVIDERS: Emergency Provider Emergency Medicine; PCP Internal Medicine; Visit Provider Emergency Medicine
DX: S52.353A Displaced comminuted fracture of shaft of radius, unspecified arm, initial encounter for closed fracture (principal); E11.9 Type 2 diabetes mellitus without complications; Z79.01 Long term (current) use of anticoagulants; E78.5 Hyperlipidemia, unspecified; Z82.49 Family history of ischemic heart disease and other diseases of the circulatory system; I10 Essential (primary) hypertension; S80.211A Abrasion, right knee, initial encounter; R04.0 Epistaxis; M79.642 Pain in left hand; W01.0XXA Fall on same level from slipping, tripping and stumbling without subsequent striking against object, initial encounter; Y93.K1 Activity, walking an animal; Z86.73 Personal history of transient ischemic attack (TIA), and cerebral infarction without residual deficits
CPT/HCPCS: 70450; 73110; 99282

== ENCOUNTER → 2025-03-27 | Outpatient (CLI) | payer MEDICARE, SELFPAY ==
--- NOTE | 2025-03-27 09:52 | CT_ITS ---
PROCEDURE: EXTREMITY UPPER WITHOUT CONTRA 03/27/2025 REASON FOR EXAM: WRIST TRAUMA FX SUSPECTED TECHNIQUE: EXTREMITY left UPPER WITHOUT CONTRA Coronal and Sagittal reconstruction series were provided. One or more dose reduction techniques were used (e.g., Automated exposure control, adjustment of the mA and/or kV according to patient size, use of iterative reconstruction technique. RADIATION DOSE SUMMARY: DLP: 591.34 mGycm COMPARISON: March 18, 2025 x-ray FINDINGS: There is a comminuted distal radius fracture with components extending to the articular surface, with impaction. The distal radioulnar joint remains aligned. There is mild widening of the scapholunate articulation to 0.3 cm. There is normal alignment of the carpal bones. There is moderate osteoarthritis at the 1st carpometacarpal articulation. There is no significant erosive disease. There is no visible soft tissue mass or cyst. There is no visible atherosclerosis. CT/Extremity Upper without Contra IMPRESSION: There is a comminuted distal radius fracture with components extending to the a rticular surface, with impaction. There is mild widening of the scapholunate articulation to 0.3 cm. Reading Location: [facility]
== END | disposition home or self-care (01) ==
LOC: CT 09:51
PROVIDERS: PCP Internal Medicine
DX: S52.592A Other fractures of lower end of left radius, initial encounter for closed fracture (principal)
CPT/HCPCS: 73200